=== PATIENT | male | born 1960 | race Caucasian/White ===

== ENCOUNTER 2022-04-26 17:09 | Observation (INO) | payer OTHER ==
[2022-04-26] MEDS ORDERED: SODIUM CHLORIDE 0.9% 1,000 ML IV STA (17:17)
[2022-04-26] MEDS ORDERED: ALBUTEROL HFA INHALER INHALATION STA (17:17)
[2022-04-26] MEDS ORDERED: methylPREDNISolone SOD SUCCI 125 MG/2 ML VIAL IV STA (17:17)
--- NOTE | 2022-04-26 17:38 | ED ---
SOB HPI - General Stated Complaint: HUYEN Time Seen by Provider: 04/26/22 17:09 Source: patient, EMS, RN notes reviewed Mode of arrival: EMS - History of Present Illness Initial Comments: 62-year-old male with a history of COPD history of cardiac disease with 2 stents who states for last week or so is had intermittent episodes of shortness of breath some midsternal chest pain nonradiating he states currently he has no chest pain he states he's been coughing with some yellow phlegm he was diagnosed with a home test yesterday of COVID-19. He states today his home breathing medications were not helping at all. He is very short of breath he denies at this time any overt fevers chills or sweats. He does have a history in addition to cardiac disease hypertension. MD Complaint: shortness of breath, cough - Related Data Allergies Allergy/AdvReac Type Severity Reaction Status Date / Time No Known Allergies Allergy Verified 04/26/22 17:40 Review of Systems ROS Statement: Those systems with pertinent positive or pertinent negative responses have been documented in the HPI. ROS Other: All systems not noted in ROS Statement are negative. General Exam - General Exam Comments Initial Comments: This is a well up well-nourished awake alert oriented 4 male General appearance: alert, in no apparent distress Head exam: Present: atraumatic, normocephalic, normal inspection Eye exam: Present: normal appearance, PERRL, EOMI. Absent: scleral icterus, conjunctival injection, periorbital swelling ENT exam: Present: mucous membranes dry Neck exam: Present: normal inspection, full ROM, other. Absent: tenderness, meningismus, lymphadenopathy Respiratory exam: Present: wheezes, decreased breath sounds. Absent: respiratory distress, rales, rhonchi, stridor, chest wall tenderness Cardiovascular Exam: Present: regular rate, normal rhythm, normal heart sounds. Absent: systolic murmur, diastolic murmur, rubs, gallop, clicks GI/Abdominal exam: Present: soft, normal bowel sounds. Absent: distended, tenderness, guarding, rebound, rigid Extremities exam: Present: normal inspection, full ROM, normal capillary refill. Absent: tenderness, pedal edema, joint swelling, calf tenderness Back exam: Present: normal inspection Neurological exam: Present: alert, oriented X3, CN II-XII intact Psychiatric exam: Present: normal affect, normal mood Skin exam: Present: warm, dry, intact, normal color. Absent: rash Course Vital Signs 04/26/22 17:25 Temperature 98.0 F Pulse Rate 76 Respiratory 16 Rate Blood Pressure 142/89 O2 Sat by Pulse 99 Oximetry - Reevaluation(s) Reevaluation #1: 04/26/22 20:41 Reevaluation patient finds he still dyspneic with bilateral wheezing. Patient will will be admitted. X-ray read by me shows no evidence of infiltrate at this time. Patient was Covid Positive on a home test yesterday. Case discussed with Dr. Saul. Medical Decision Making - Lab Data Result diagrams: 04/26/22 17:31 04/26/22 17:31 Lab Results 04/26/22 04/26/22 04/26/22 Range/Units 17:31 17:31 17:31 WBC 5.3 (3.8-10.6) k/uL RBC 4.44 (4.30-5.90) m/uL Hgb 14.3 (13.0-17.5) gm/dL Hct 39.2 (39.0-53.0) % MCV 88.4 (80.0-100.0) fL MCH 32.3 (25.0-35.0) pg MCHC 36.5 (31.0-37.0) g/dL RDW 12.8 (11.5-15.5) % Plt Count 200 (150-450) k/uL MPV 7.6 Neutrophils % 66 % Lymphocytes % 17 % Monocytes % 10 % Eosinophils % 3 % Basophils % 1 % Neutrophils # 3.5 (1.3-7.7) k/uL Lymphocytes # 0.9 L (1.0-4.8) k/uL Monocytes # 0.5 (0-1.0) k/uL Eosinophils # 0.1 (0-0.7) k/uL Basophils # 0.0 (0-0.2) k/uL PT 10.7 (9.0-12.0) sec INR 1.0 (<1.2) APTT 22.2 (22.0-30.0) sec D-Dimer 0.37 (<0.60) mg/L FEU Sodium 136 L (137-145) mmol/L Potassium 4.5 (3.5-5.1) mmol/L Chloride 103 (98-107) mmol/L Carbon Dioxide 24 (22-30) mmol/L Anion Gap 9 mmol/L BUN 12 (9-20) mg/dL Creatinine 0.82 (0.66-1.25) mg/dL Est GFR (CKD-EPI)AfAm >90 (>60 ml/min/1.73 sqM) Est GFR (CKD-EPI)NonAf >90 (>60 ml/min/1.73 sqM) Glucose 106 H (74-99) mg/dL Plasma Lactic Acid Kuldeep (0.7-2.0) mmol/L Calcium 8.5 (8.4-10.2) mg/dL Magnesium 1.7 (1.6-2.3) mg/dL Total Bilirubin 1.1 (0.2-1.3) mg/dL AST 30 (17-59) U/L ALT 32 (4-49) U/L Alkaline Phosphatase 81 (38-126) U/L Troponin I (0.000-0.034) ng/mL NT-Pro-B Natriuret Pep pg/mL Total Protein 6.7 (6.3-8.2) g/dL Albumin 4.1 (3.5-5.0) g/dL 04/26/22 04/26/22 04/26/22 Range/Units 17:31 17:31 17:31 WBC (3.8-10.6) k/uL RBC (4.30-5.90) m/uL Hgb (13.0-17.5) gm/dL Hct (39.0-53.0) % MCV (80.0-100.0) fL MCH (25.0-35.0) pg MCHC (31.0-37.0) g/dL RDW (11.5-15.5) % Plt Count (150-450) k/uL MPV Neutrophils % % Lymphocytes % % Monocytes % % Eosinophils % % Basophils % % Neutrophils # (1.3-7.7) k/uL Lymphocytes # (1.0-4.8) k/uL Monocytes # (0-1.0) k/uL Eosinophils # (0-0.7) k/uL Basophils # (0-0.2) k/uL PT (9.0-12.0) sec INR (<1.2) APTT (22.0-30.0) sec D-Dimer (<0.60) mg/L FEU Sodium (137-145) mmol/L Potassium (3.5-5.1) mmol/L Chloride (98-107) mmol/L Carbon Dioxide (22-30) mmol/L Anion Gap mmol/L BUN (9-20) mg/dL Creatinine (0.66-1.25) mg/dL Est GFR (CKD-EPI)AfAm (>60 ml/min/1.73 sqM) Est GFR (CKD-EPI)NonAf (>60 ml/min/1.73 sqM) Glucose (74-99) mg/dL Plasma Lactic Acid Kuldeep 1.2 (0.7-2.0) mmol/L Calcium (8.4-10.2) mg/dL Magnesium (1.6-2.3) mg/dL Total Bilirubin (0.2-1.3) mg/dL AST (17-59) U/L ALT (4-49) U/L Alkaline Phosphatase (38-126) U/L Troponin I <0.012 (0.000-0.034) ng/mL NT-Pro-B Natriuret Pep 31 pg/mL Total Protein (6.3-8.2) g/dL Albumin (3.5-5.0) g/dL - EKG Data -: EKG Interpreted by Me EKG Comments: EKG interpreted by me shows a normal sinus rhythm a 76 WI interval 154 QRS duration 100 QT since QTC 380/[address]-T wave changes seen. Disposition Clinical Impression: Acute exacerbation of chronic obstructive pulmonary disease, COVID-19 Disposition: ADMITTED IP TO THIS [facility] Condition: Fair Referrals: None,Stated [Primary Care Provider] - 1-2 days Decision Date: 04/26/22 Decision Time: 20:10
--- NOTE | 2022-04-26 18:02 | XR ---
EXAMINATION TYPE: XR chest 2V DATE OF EXAM: 04/26/2022 COMPARISON: None HISTORY: Shortness of breath TECHNIQUE: Frontal and lateral views of the chest are obtained. FINDINGS: There is no focal air space opacity, pleural effusion, or pneumothorax seen. The cardiac silhouette size is within normal limits. The osseous structures are intact. IMPRESSION: No acute cardiopulmonary process.
[2022-04-26 18:14] LABS: Basophils % (A) 1 %; Eosinophils # (A) 0.1 k/uL (0-0.7); Eosinophils % (A) 3 %; HCT 39.2 % (39.0-53.0); HGB 14.3 gm/dL (13.0-17.5); Lymphocytes # (A) 0.9 k/uL (1.0-4.8); Lymphocytes % (A) 17 %; MCH 32.3 pg (25.0-35.0); MCHC 36.5 g/dL (31.0-37.0); MCV 88.4 fL (80.0-100.0); Mean Platelet Volume 7.6; Monocytes # (A) 0.5 k/uL (0-1.0); Monocytes % (A) 10 %; Neutrophils # (A) 3.5 k/uL (1.3-7.7); Neutrophils % (A) 66 %; Platelet Count 200 k/uL (150-450); RBC 4.44 m/uL (4.30-5.90); RDW 12.8 % (11.5-15.5); WBC 5.3 k/uL (3.8-10.6)
[2022-04-26 18:18] LABS: Partial Thromboplastin Time 22.2 sec (22.0-30.0); Prothrombin Time 10.7 sec (9.0-12.0)
[2022-04-26 18:42] LABS: ALT 32 U/L (4-49); AST 30 U/L (17-59); African American GFR (CKD) >90 (>60 ml/min/1.73 sqM); Albumin 4.1 g/dL (3.5-5.0); Alkaline Phosphatase 81 U/L (38-126); Anion Gap 9 mmol/L; Blood Urea Nitrogen 12 mg/dL (9-20); Calcium 8.5 mg/dL (8.4-10.2); Carbon Dioxide 24 mmol/L (22-30); Chloride 103 mmol/L (98-107); Glucose 106 mg/dL (74-99); Magnesium 1.7 mg/dL (1.6-2.3); Non-African American GFR(CKD) >90 (>60 ml/min/1.73 sqM); Potassium 4.5 mmol/L (3.5-5.1); Sodium 136 mmol/L (137-145); Total Bilirubin 1.1 mg/dL (0.2-1.3); Total Protein 6.7 g/dL (6.3-8.2)
[2022-04-26] MEDS ORDERED: ACETAMINOPHEN TAB 325 MG TAB PO PRN (20:47)
[2022-04-26] MEDS ORDERED: NALOXONE 0.4 MG/ML 1 ML VIAL IVP PRN (20:47)
[2022-04-26] MEDS ORDERED: NITROGLYCERIN SL TABS 0.4 MG TAB SUBLINGUAL PRN (22:57)
[2022-04-26] MEDS: RANOLAZINE 500 MG TAB.ER.12H PO SCH (23:21)
[2022-04-26] MEDS: METOPROLOL TARTRATE 25 MG TAB PO SCH (23:21)
[2022-04-26] MEDS: ATORVASTATIN 80 MG TAB PO SCH (23:21)
[2022-04-26] MEDS: PANTOPRAZOLE 40 MG TABLET PO SCH (23:21)
[2022-04-26] MEDS: methylPREDNISolone SOD SUCCI 125 MG/2 ML VIAL IV SCH (23:22)
[2022-04-27] MEDS ORDERED: ALBUTEROL HFA INHALER INHALATION SCH
[2022-04-27] MEDS: PANTOPRAZOLE 40 MG TABLET PO SCH ×2 (06:34→18:18)
[2022-04-27] MEDS: methylPREDNISolone SOD SUCCI 125 MG/2 ML VIAL IV SCH ×4 (06:34→23:54)
[2022-04-27] MEDS: ALBUTEROL HFA INHALER INHALATION SCH ×4 (07:03→19:04)
[2022-04-27] MEDS: ISOSORBIDE MONONITRATE ER 30 MG TAB.ER.24H PO SCH (08:41)
[2022-04-27] MEDS: ZINC SULFATE 220 MG CAP PO SCH (08:41)
[2022-04-27] MEDS: RANOLAZINE 500 MG TAB.ER.12H PO SCH ×2 (08:42→20:58)
[2022-04-27] MEDS: ASCORBIC ACID 500 MG TAB PO SCH (08:42)
[2022-04-27] MEDS: CHOLECALCIFEROL 125 MCG (5000 IU) TABLET PO SCH (08:42)
[2022-04-27] MEDS: METOPROLOL TARTRATE 25 MG TAB PO SCH ×2 (08:42→20:58)
[2022-04-27] MEDS: FLUoxetine HCL 20 MG CAP PO SCH (08:42)
[2022-04-27] MEDS: NICOTINE 21MG/24HR PATCH TRANSDERM SCH (08:58)
[2022-04-27] MEDS: ATORVASTATIN 80 MG TAB PO SCH (20:58)
--- NOTE | 2022-04-27 23:22 | P.HPIM ---
History of Present Illness H&P Date: 04/27/22 Chief Complaint: Shortness of breath Patient is a 62-year-old male with a known history of COPD on home oxygen, hypertension, history of AL and stent placement coronary artery disease, previous history of smoking presents to ER with complaints of worsening shortness of breath. Patient states that his was tested positive for covid 19 and has been having symptoms for 1 week. Patient started having symptoms 2 days ago. Patient was also had midsternal chest pain. No compressive chest pain now. He has been having cough with yellow sputum production. No radiation of the pain. Having generalized weakness and tightness. No nausea vomiting or abdominal pain or diarrhea. Denied any fever or chills. No leg swelling. On admission patient was afebrile. Pulse ox 99% on 5 L oxygen via nasal cannula. Chest x-ray showed no acute cardiopulmonary process. EKG showed normal sinus rhythm. Laboratory data WC 5.3 hemoglobin 14.3 and platelets 200 D-dimer level is 0.37 Sodium 136 potassium 4.5 chloride 103 bicarb is 24, BUN 12 and creatinine 0.8, blood sugar 106 magnesium 1.7 neck elevated has not elevated. Troponin 1 negative and proBNP is 31 Montes virus 19 detected. Review of Systems Constitutional: Patient denies any fever or chills . No generalized weakness or weight loss. Abdomen: Patient denied nausea vomiting and diarrhea and abdominal pain. Cardiovascular: Patient denies any chest pain or short of breath no palpitations. Respiratory: patient denied any cough is from production. No shortness of br eath Neurologic: Patient denied any numbness or tingling headache. Musculoskeletal: Patient denies any complaints of joint swelling or deformity. Skin: Negative Psychiatric: Negative Endocrine: No heat or cold intolerance. No recent weight gain. Genitourinary: No dysuria or hematuria. All other 14 point ROS negative except the above Past Medical History Past Medical History: COPD, Hypertension, Myocardial Infarction (AL) Last Myocardial Infarction Date:: 2020 History of Any Multi-Drug Resistant Organisms: None Reported Past Surgical History: Heart Catheterization With Stent Date of Last Stent Placement:: 2020 Past Psychological History: No Psychological Hx Reported Smoking Status: Former smoker Past Alcohol Use History: None Reported Past Drug Use History: None Reported Medications and Allergies Home Medications Medication Instructions Recorded Confirmed Type Atorvastatin Calcium [Lipitor] 80 mg PO HS 04/26/22 04/26/22 History FLUoxetine HCL [PROzac] 20 mg PO DAILY 04/26/22 04/26/22 History FLUoxetine HCL [PROzac] 40 mg PO DAILY 04/26/22 04/26/22 History Famotidine [Pepcid] 40 mg PO DAILY 04/26/22 04/26/22 History Isosorbide Mononitrate ER [Imdur] 90 mg PO DAILY 04/26/22 04/26/22 History Lansoprazole [Prevacid] 30 mg PO DAILY 04/26/22 04/26/22 History Metoprolol Tartrate [Lopressor] 25 mg PO BID 04/26/22 04/26/22 History Nitroglycerin Sl Tabs [Nitrostat] 0.4 mg SUBLINGUAL Q5M PRN 04/26/22 04/26/22 History Pantoprazole Sodium 40 mg PO BID 04/26/22 04/26/22 History Ranolazine [Ranolazine ER] 500 mg PO BID 04/26/22 04/26/22 History rOPINIRole HCL [Requip] 0.5 mg PO TID 04/26/22 04/26/22 History Allergies Allergy/AdvReac Type Severity Reaction Status Date / Time No Known Allergies Allergy Verified 04/26/22 21:03 Physical Exam Vitals: Vital Signs Temp Pulse Pulse Resp BP BP Pulse Ox 04/27/22 02:09 97.8 F 81 18 138/54 98 04/26/22 21:40 97.8 F 77 19 137/74 98 04/26/22 21:00 73 22 118/84 99 04/26/22 20:30 73 24 139/82 99 04/26/22 20:00 68 20 141/88 99 04/26/22 19:30 74 21 145/84 99 04/26/22 19:00 68 24 130/89 99 04/26/22 18:30 71 22 133/89 99 04/26/22 18:00 77 24 139/94 99 04/26/22 17:25 98.0 F 76 16 142/89 99 Intake and Output 04/26/22 04/27/22 04/27/22 23:59 06:59 14:59 Other: Voiding Method # Voids Weight PHYSICAL EXAMINATION: Patient is lying in the bed comfortably, no acute distress, awake alert and oriented.. HEENT: Normocephalic. Neck is supple. Pupils reactive. Nostrils clear. Oral cavity is moist. Neck reveals no JVD, carotid bruits, or thyromegaly. CHEST EXAMINATION: Trachea is central. Symmetrical expansion. Bilateral diffuse wheezing and diminished air entry and nonlabored breathing.. Scattered rhonchi. CARDIAC: Normal S1, S2 with no gallops. No murmurs ABDOMEN: Soft. Bowel sounds normal. No organomegaly. No abdominal bruits. Extremities: reveal no edema. No clubbing or cyanosis Neurologically awake, alert, oriented x3 with well-coordinated movements. No focal deficits noted Skin: No rash or skin lesions. Psychiatric: Coperative. Nonsuicidal Musculoskeletal: No joint swelling or deformity. Normal range of motion. Results CBC & Chem 7: 04/28/22 06:04 04/28/22 06:04 Labs: Abnormal Lab Results - Last 24 Hours (Table) 04/26/22 04/26/22 Range/Units 17:31 17:31 Lymphocytes # 0.9 L (1.0-4.8) k/uL Sodium 136 L (137-145) mmol/L Glucose 106 H (74-99) mg/dL Thrombosis Risk Factor Assmnt - DVT/VTE Prophylaxis DVT/VTE Prophylaxis: Pharmacologic Prophylaxis ordered Assessment and Plan Assessment: Acute COVID 19 infection Acute COPD exacerbation Chronic hypoxic respiratory failure requiring oxygen with another cannula at home. Coronary artery disease with history of stent placement Hypertension Previous history of smoking and DVT prophylaxis Plan: Patient will be continued on oxygen supplementation. Continue with IV Solu- Medrol 60 mg every 6 hourly and duo nebs. Continue with antibiotics in the form of azithromycin. DVT prophylaxis with Lovenox subcu. Continue with home medications and follow closely. Follow-up inflammatory markers. Prognosis is guarded in this time. Continue with contact and droplet precautions. Time with Patient: Greater than 30
[2022-04-28] MEDS: methylPREDNISolone SOD SUCCI 125 MG/2 ML VIAL IV SCH ×4 (07:31→23:22)
[2022-04-28] MEDS: PANTOPRAZOLE 40 MG TABLET PO SCH ×2 (07:31→17:02)
[2022-04-28 08:46] LABS: Basophils # (A) 0 X 10*3/uL (0.00-0.10); Basophils % (A) 0 %; Eosinophils # (A) 0 X 10*3/uL (0.04-0.35); Eosinophils % (A) 0 %; HCT 36.6 % (39.6-50.0); HGB 12.7 g/dL (13.0-17.0); Immature Grans, Automated 0.5 %; Lymphocytes # (A) 0.66 X 10*3/uL (0.90-5.00); Lymphocytes % (A) 4.7 %; MCH 30.8 pg (27.0-32.0); MCHC 34.7 g/dL (32.0-37.0); MCV 88.6 fL (80.0-97.0); Mean Platelet Volume 9.5 fL (9.5-12.2); Monocytes # (A) 0.25 X 10*3/uL (0.20-1.00); Monocytes % (A) 1.8 %; NRBC Per 100 WBC 0 /100 WBCS (0.0-0.0); Neutrophils # (A) 13.11 X 10*3/uL (1.80-7.70); Platelet Count 238 X 10*3/uL (140-440); RBC 4.13 X 10*6/uL (4.40-5.60); RDW 12.5 % (11.5-14.5); WBC 14.09 X 10*3/uL (4.50-10.00)
[2022-04-28 09:15] LABS: African American GFR (CKD) 92.4 (60.0-200.0); Anion Gap 10.6 mmol/L (10.00-18.00); BUN/Creat Ratio 19.5 Ratio (12.00-20.00); Blood Urea Nitrogen 19.5 mg/dL (9.0-27.0); C Reactive Protein 0.5 mg/dL (0.00-0.80); Carbon Dioxide 23.4 mmol/L (20.0-27.5); Non-African American GFR(CKD) 79.7 (60.0-200.0); Potassium 4.4 mmol/L (3.5-5.5)
[2022-04-28] MEDS: ISOSORBIDE MONONITRATE ER 30 MG TAB.ER.24H PO SCH (09:20)
[2022-04-28] MEDS: ENOXAPARIN 40 MG/0.4 ML SYRINGE SQ SCH (09:20)
[2022-04-28] MEDS: RANOLAZINE 500 MG TAB.ER.12H PO SCH ×2 (09:21→21:45)
[2022-04-28] MEDS: CHOLECALCIFEROL 125 MCG (5000 IU) TABLET PO SCH (09:21)
[2022-04-28] MEDS: ASCORBIC ACID 500 MG TAB PO SCH (09:21)
[2022-04-28] MEDS: ZINC SULFATE 220 MG CAP PO SCH (09:21)
[2022-04-28] MEDS: METOPROLOL TARTRATE 25 MG TAB PO SCH ×2 (09:21→21:45)
[2022-04-28] MEDS: FLUoxetine HCL 20 MG CAP PO SCH (09:25)
[2022-04-28] MEDS: NICOTINE 21MG/24HR PATCH TRANSDERM SCH (09:25)
[2022-04-28] MEDS: ALBUTEROL HFA INHALER INHALATION SCH ×4 (09:51→19:57)
[2022-04-28] MEDS: FAMOTIDINE 20 MG TAB PO SCH ×2 (11:31→21:45)
[2022-04-28] MEDS: AZITHROMYCIN 500 MG TAB PO SCH (11:33)
[2022-04-28] MEDS: ATORVASTATIN 80 MG TAB PO SCH (21:44)
--- NOTE | 2022-04-29 05:58 | P.PN ---
Subjective Progress Note Date: 04/28/22 Patient is a 62-year-old male with a known history of COPD on home oxygen, hypertension, history of [place] and stent placement coronary artery disease, previous history of smoking presents to ER with complaints of worsening shortness of breath. Patient states that his was tested positive for covid 19 and has been having symptoms for 1 week. Patient started having symptoms 2 days ago. Patient was also had midsternal chest pain. No compressive chest pain now. He has been having cough with yellow sputum production. No radiation of the pain. Having generalized weakness and tightness. No nausea vomiting or abdominal pain or diarrhea. Denied any fever or chills. No leg swelling. On admission patient was afebrile. Pulse ox 99% on 5 L oxygen via nasal cannula. Chest x-ray showed no acute cardiopulmonary process. EKG showed normal sinus rhythm. Laboratory data WC 5.3 hemoglobin 14.3 and platelets 200 D-dimer level is 0.37 Sodium 136 potassium 4.5 chloride 103 bicarb is 24, BUN 12 and creatinine 0.8, blood sugar 106 magnesium 1.7 neck elevated has not elevated. Troponin 1 negative and proBNP is 31 Montes virus 19 detected. 04/28/2022 Patient is seen and evaluated in follow-up today currently maintained on 3 L via nasal cannula. Patient is being monitored for acute COVID-19 infection along with COPD acute exacerbation. Patient reports he does have as needed oxygen in the outpatient setting although this was in [place] where he had Medicaid insurance and currently applied for Medicaid here although pending and does not have a doctor here as he recently just moved to [place]. Patient is afebrile and continues with shortness of breath. Denies chest pain or palpitations. Patient is tolerating diet with no reports of nausea or vomiting noted. Patient reports he was vaccinated but did not receive boosters for Covid. Review of systems: Constitutional: No reports of fatigue, fever, or chills Cardiovascular: No reports of chest pain or palpitations Respiratory: reports of shortness of breath with cough GI: No reports of nausea, vomiting, or diarrhea : No reports of dysuria or retention Neurovascular: No reports of weakness or numbness All medications have been reviewed Physical exam: Patient is lying in the bed comfortably, no acute distress, awake alert and oriented.. HEENT: Normocephalic. Neck is supple. Pupils reactive. Nostrils clear. Oral cav ity is moist. Neck reveals no JVD, carotid bruits, or thyromegaly. CHEST EXAMINATION: Trachea is central. Symmetrical expansion. Bilateral diffuse wheezing and diminished air entry and nonlabored breathing.. Scattered course rhonchi. CARDIAC: Normal S1, S2 with no gallops. No murmurs ABDOMEN: Soft. Bowel sounds normal. No organomegaly. No abdominal bruits. Extremities: reveal no edema. No clubbing or cyanosis Neurologically awake, alert, oriented x3 with well-coordinated movements. No f ocal deficits noted Skin: No rash or skin lesions. Psychiatric: Cooperative. Non-suicidal Musculoskeletal: No joint swelling or deformity. Normal range of motion. Assessment: Acute COVID 19 infection Acute COPD exacerbation Chronic hypoxic respiratory failure requiring oxygen with nasal cannula at home. Coronary artery disease with history of stent placement Hypertension Previous history of smoking DVT prophylaxis Plan: Patient will be continued on oxygen supplementation. Continue with IV Solu- Medrol 60 mg every 6 hourly and inhalers. Continue with antibiotics in the form of azithromycin. DVT prophylaxis with Lovenox subcu. Continue with home medications and follow closely. Prognosis is guarded in this time. Continue with contact and droplet precautions for Covid 19 Case management following and arranging for home 02 in the outpatient setting as he recently just moved from [place] and his insurance was only valid there. Medicaid pending for [place]. Possible discharge in 24 hours. The impression and plan of care has been dictated by Geovanna Vidal, Nurse Practitioner as directed. Dr. Dorys MD I have performed a history and examination and MDM of this patient, discussed the same with the dictator, and agree with the dictator's assessment and plan as written ,documented as a scribe. Based on total visit time, I have performed more than 50% of the visit. Objective - Vital Signs Vital signs: Vital Signs Temp 98.0 F 04/28/22 07:00 Pulse 75 04/28/22 07:00 Resp 18 04/28/22 07:00 BP 150/73 04/28/22 07:00 Pulse Ox 96 04/28/22 07:00 FiO2 Intake & Output 04/27/22 04/28/22 04/28/22 18:59 06:59 18:59 Intake Total 598 750 Balance 598 750 Intake: Oral 598 750 Other: Voiding Method Toilet # Voids 3 - Labs CBC & Chem 7: 04/28/22 06:04 04/28/22 06:04 Labs: Abnormal Lab Results - Last 24 Hours (Table) 04/27/22 04/28/22 04/28/22 Range/Units 13:09 06:04 06:04 WBC 14.09 H (4.50-10.00) X 10*3/uL RBC 4.13 L (4.40-5.60) X 10*6/uL Hgb 12.7 L (13.0-17.0) g/dL Hct 36.6 L (39.6-50.0) % Immature Gran # 0.07 H (0.00-0.04) X 10*3/uL Neutrophils # 13.11 H (1.80-7.70) X 10*3/uL Lymphocytes # 0.66 L (0.90-5.00) X 10*3/uL Eosinophils # 0 L (0.04-0.35) X 10*3/uL Glucose 190 H (70-110) mg/dL Coronavirus (PCR) Detected A (Not Detectd)
[2022-04-29] MEDS: PANTOPRAZOLE 40 MG TABLET PO SCH ×2 (06:15→17:17)
[2022-04-29] MEDS: methylPREDNISolone SOD SUCCI 125 MG/2 ML VIAL IV SCH ×3 (06:16→17:17)
[2022-04-29] MEDS: AZITHROMYCIN 500 MG TAB PO SCH (08:52)
[2022-04-29] MEDS: FAMOTIDINE 20 MG TAB PO SCH ×2 (08:52→21:06)
[2022-04-29] MEDS: RANOLAZINE 500 MG TAB.ER.12H PO SCH ×2 (08:52→21:06)
[2022-04-29] MEDS: ISOSORBIDE MONONITRATE ER 30 MG TAB.ER.24H PO SCH (08:52)
[2022-04-29] MEDS: ZINC SULFATE 220 MG CAP PO SCH (08:52)
[2022-04-29] MEDS: METOPROLOL TARTRATE 25 MG TAB PO SCH ×2 (08:52→21:06)
[2022-04-29] MEDS: ASCORBIC ACID 500 MG TAB PO SCH (08:52)
[2022-04-29] MEDS: NICOTINE 21MG/24HR PATCH TRANSDERM SCH ×2 (08:53→08:58)
[2022-04-29] MEDS: ENOXAPARIN 40 MG/0.4 ML SYRINGE SQ SCH (08:53)
[2022-04-29] MEDS: CHOLECALCIFEROL 125 MCG (5000 IU) TABLET PO SCH (08:54)
[2022-04-29] MEDS: ALBUTEROL HFA INHALER INHALATION SCH ×4 (09:14→19:40)
[2022-04-29] MEDS: FLUoxetine HCL 20 MG CAP PO SCH (09:26)
[2022-04-29] MEDS: ATORVASTATIN 80 MG TAB PO SCH (21:06)
[2022-04-30] MEDS: methylPREDNISolone SOD SUCCI 125 MG/2 ML VIAL IV SCH ×2 (00:13→06:24)
[2022-04-30] MEDS: PANTOPRAZOLE 40 MG TABLET PO SCH (06:24)
--- NOTE | 2022-04-30 06:52 | P.PN ---
Subjective Progress Note Date: 04/29/22 Patient is a 62-year-old male with a known history of COPD on home oxygen, hypertension, history of [place] and stent placement coronary artery disease, previous history of smoking presents to ER with complaints of worsening shortness of breath. Patient states that his was tested positive for covid 19 and has been having symptoms for 1 week. Patient started having symptoms 2 days ago. Patient was also had midsternal chest pain. No compressive chest pain now. He has been having cough with yellow sputum production. No radiation of the pain. Having generalized weakness and tightness. No nausea vomiting or abdominal pain or diarrhea. Denied any fever or chills. No leg swelling. On admission patient was afebrile. Pulse ox 99% on 5 L oxygen via nasal cannula. Chest x-ray showed no acute cardiopulmonary process. EKG showed normal sinus rhythm. Laboratory data WC 5.3 hemoglobin 14.3 and platelets 200 D-dimer level is 0.37 Sodium 136 potassium 4.5 chloride 103 bicarb is 24, BUN 12 and creatinine 0.8, blood sugar 106 magnesium 1.7 neck elevated has not elevated. Troponin 1 negative and proBNP is 31 Montes virus 19 detected. 04/28/2022 Patient is seen and evaluated in follow-up today currently maintained on 3 L via nasal cannula. Patient is being monitored for acute COVID-19 infection along with COPD acute exacerbation. Patient reports he does have as needed oxygen in the outpatient setting although this was in [place] where he had Medicaid insurance and currently applied for Medicaid here although pending and does not have a doctor here as he recently just moved to [place]. Patient is afebrile and continues with shortness of breath. Denies chest pain or palpitations. Patient is tolerating diet with no reports of nausea or vomiting noted. Patient reports he was vaccinated but did not receive boosters for Covid. 04/29/2022 Patient is seen and evaluated in follow-up today apparently has no insurance as he canceled it while living in [place]. Case management is following working with the insurance along with oxygen supply company in an attempt to get the patient some oxygen prior to discharge. Insurance company that she was working with apparently is closed as there is voting today. Case management to follow-up with [employer] company in the a.m. Patient is afebrile reports continued shortness of breath and cough with no worsening shortness of breath, chest pain, or palpitations. Patient is tolerating oral diet nausea or vomiting noted. Review of systems: Constitutional: No reports of fatigue, fever, or chills Cardiovascular: No reports of chest pain or palpitations Respiratory: reports of shortness of breath with cough GI: No reports of nausea, vomiting, or diarrhea : No reports of dysuria or retention Neurovascular: No reports of weakness or numbness All medications have been reviewed Physical exam: Patient is sitting up in the bed comfortably, no acute distress, awake alert and oriented.. HEENT: Normocephalic. Neck is supple. Pupils reactive. Nostrils clear. Oral cavity is moist. Neck reveals no JVD, carotid bruits, or thyromegaly. CHEST EXAMINATION: Trachea is central. Symmetrical expansion. mild expiratory w heezing and diminished air entry with nonlabored breathing.. Scattered course rhonchi. CARDIAC: Normal S1, S2 with no gallops. No murmurs ABDOMEN: Soft. Bowel sounds normal. No organomegaly. No abdominal bruits. Extremities: reveal no edema. No clubbing or cyanosis Neurologically awake, alert, oriented x3 with well-coordinated movements. No focal deficits noted Skin: No rash or skin lesions. Psychiatric: Cooperative. Non-suicidal Musculoskeletal: No joint swelling or deformity. Normal range of motion. Assessment: Acute COVID 19 infection Acute COPD exacerbation Chronic hypoxic respiratory failure requiring oxygen with nasal cannula at home. Coronary artery disease with history of stent placement Hypertension Previous history of smoking DVT prophylaxis Plan: Patient will be continued on oxygen supplementation. Continue with IV Solu- Medrol and will titrate down the dose and inhalers. Continue with antibiotics in the form of azithromycin to complete the course. Case management following and arranging for home 02 in the outpatient setting as he recently just moved from [place] and his insurance was only valid there. Medicaid pending for [place]. Apparently the insurance is closed today for voting and case management to follow up with them in am Possible discharge in 24 hours once oxygen is delivered. . The impression and plan of care has been dictated by Geovanna Vidal, Nurse Practitioner as directed. Dr. Dorys MD I have performed a history and examination and MDM of this patient, discussed the same with the dictator, and agree with the dictator's assessment and plan as written ,documented as a scribe. Based on total visit time, I have performed more than 50% of the visit. Objective - Vital Signs Vital signs: Vital Signs Temp 97.8 F 04/29/22 07:00 Pulse 76 04/29/22 07:00 Resp 18 04/29/22 07:00 BP 150/79 04/29/22 07:00 Pulse Ox 94 L 04/29/22 15:36 FiO2 Intake & Output 04/28/22 04/29/22 04/29/22 18:59 06:59 18:59 Intake Total 480 Balance 480 Intake: Oral 480 Other: Voiding Method Toilet # Voids 1 1 - Labs CBC & Chem 7: 04/28/22 06:04 04/28/22 06:04
[2022-04-30] MEDS: NICOTINE 21MG/24HR PATCH TRANSDERM SCH (08:23)
[2022-04-30 08:27] VITALS: BP 149/82; PULSE 71; RESP 18; TEMP 97.4
[2022-04-30] MEDS ORDERED: methylPREDNISolone SOD SUCCI 125 MG/2 ML VIAL IV SCH (08:45)
[2022-04-30] MEDS: ZINC SULFATE 220 MG CAP PO SCH (08:49)
[2022-04-30] MEDS: ASCORBIC ACID 500 MG TAB PO SCH (08:49)
[2022-04-30] MEDS: METOPROLOL TARTRATE 25 MG TAB PO SCH (08:49)
[2022-04-30] MEDS: RANOLAZINE 500 MG TAB.ER.12H PO SCH (08:49)
[2022-04-30] MEDS: FAMOTIDINE 20 MG TAB PO SCH (08:49)
[2022-04-30] MEDS: ISOSORBIDE MONONITRATE ER 30 MG TAB.ER.24H PO SCH (08:49)
[2022-04-30] MEDS: CHOLECALCIFEROL 125 MCG (5000 IU) TABLET PO SCH (08:49)
[2022-04-30] MEDS: AZITHROMYCIN 500 MG TAB PO SCH (08:49)
[2022-04-30] MEDS: FLUoxetine HCL 20 MG CAP PO SCH (08:50)
[2022-04-30] MEDS: ENOXAPARIN 40 MG/0.4 ML SYRINGE SQ SCH (08:50)
[2022-04-30] MEDS: ALBUTEROL HFA INHALER INHALATION SCH ×2 (09:04→12:07)
[2022-05-01] MEDS ORDERED: predniSONE 20 MG TAB PO SCH (09:00)
--- NOTE | 2022-05-01 10:01 | P.DS ---
Providers Date of admission: 04/26/22 20:47 Expected date of discharge: 04/30/22 Attending physician: Susan Saul Primary care physician: Stated None Hospital Course: Final diagnosis Acute COVID 19 infection Acute COPD exacerbation Chronic hypoxic respiratory failure requiring oxygen with nasal cannula at home. Coronary artery disease with history of stent placement Hypertension Previous history of smoking DVT prophylaxis Discharge disposition Patient is being discharged in a stable condition with guarded prognosis to home. Patient will follow-up with Dr. Wong in the outpatient setting upon discharge. Patient is to follow-up with pulmonary outpatient as scheduled. Patient will be continued on 3 L of oxygen via nasal cannula to manage his COPD. Patient to continue vitamin and zinc supplements along with prednisone taper on discharge as well. Total time taken is greater than 35 minutes. Hospital course This is a 62-year-old male who was recently admitted with cough and COPD exacerbation and also acute Covid 19 infection. Patient with concern for pneumonia as well on admission and was given a few doses of Zithromax. Patient continued on IV steroids along with treatments and will be continued on a prednisone taper and resume his DuoNeb treatments along with inhalers in the outpatient setting. Patient currently has recently moved from [place] here to [place] and canceled his insurance of [place] as it was medicaid and currently working on obtaining insurance here. Case management working with the patient and able to provide oxygen and resources that are being delivered to the home on discharge. She provided resources for outpatient primary care providers to establish with along with pulmonary in the outpatient setting. Encourage patient to continue to avoid tobacco use and exposure. Currently no reports of chest pain, shortness of breath, or palpitations. Patient is afebrile. No reports of nausea or vomiting and patient is tolerating diet. Patient will be discharged home today. Guarded prognosis. Physical exam: Gen: This is a 62-year-old male awake, alert and oriented 3, well-developed, well-nourished HEENT: Head is atraumatic, normocephalic. Pupils equal, round. Sclerae is anicteric. NECK: Supple. No JVD. No lymphadenopathy. No thyromegaly. LUNGS: Diminished breath sounds bilaterally with some minimal expiratory wheezing and scattered coarse rhonchi noted. No intercostal retractions. HEART: Regular rate and rhythm. No murmur. ABDOMEN: Soft. Obese. Bowel sounds are present. No masses. No tenderness. EXTREMITIES: No pedal edema. No calf tenderness. NEUROLOGICAL: Patient is awake, alert and oriented x3. Cranial nerves 2 through 12 are grossly intact. Please refer to medication reconciliation sheet for a list of medications. The impression and plan of care has been dictated by Geovanna Vidal, Nurse Practitioner as directed. Dr. Dorys MD I have performed a history and examination and MDM of this patient, discussed th e same with the dictator, and agree with the dictator's assessment and plan as written ,documented as a scribe. Based on total visit time, I have performed more than 50% of the visit. Patient Condition at Discharge: Fair Plan - Discharge Summary New Discharge Prescriptions: New predniSONE 10 mg PO DIRECTED #30 tab Acetaminophen Tab [Tylenol] 650 mg PO Q4HR PRN tab PRN Reason: Mild Pain Or Fever > 100.5 Ascorbic Acid [Vitamin C] 1,000 mg PO DAILY #60 tab Zinc Sulfate [Orazinc] 220 mg PO DAILY 14 Days #14 cap Albuterol Inhaler [Ventolin Hfa Inhaler] 2 puff INHALATION RT-QID 30 Days #1 each Cholecalciferol [Vitamin D3 (125 Mcg = 5000 Iu)] 125 mcg PO DAILY 30 Days #30 tab Continue Ranolazine [Ranolazine ER] 500 mg PO BID Isosorbide Mononitrate ER [Imdur] 90 mg PO DAILY Famotidine [Pepcid] 40 mg PO DAILY FLUoxetine HCL [PROzac] 40 mg PO DAILY Nitroglycerin Sl Tabs [Nitrostat] 0.4 mg SUBLINGUAL Q5M PRN PRN Reason: Chest Pain rOPINIRole HCL [Requip] 0.5 mg PO TID Metoprolol Tartrate [Lopressor] 25 mg PO BID Pantoprazole Sodium 40 mg PO BID Lansoprazole [Prevacid] 30 mg PO DAILY Atorvastatin Calcium [Lipitor] 80 mg PO HS FLUoxetine HCL [PROzac] 20 mg PO DAILY Discharge Medication List Atorvastatin Calcium [Lipitor] 80 mg PO HS 04/26/22 [History] FLUoxetine HCL [PROzac] 20 mg PO DAILY 04/26/22 [History] FLUoxetine HCL [PROzac] 40 mg PO DAILY 04/26/22 [History] Famotidine [Pepcid] 40 mg PO DAILY 04/26/22 [History] Isosorbide Mononitrate ER [Imdur] 90 mg PO DAILY 04/26/22 [History] Lansoprazole [Prevacid] 30 mg PO DAILY 04/26/22 [History] Metoprolol Tartrate [Lopressor] 25 mg PO BID 04/26/22 [History] Nitroglycerin Sl Tabs [Nitrostat] 0.4 mg SUBLINGUAL Q5M PRN 04/26/22 [History] Pantoprazole Sodium 40 mg PO BID 04/26/22 [History] Ranolazine [Ranolazine ER] 500 mg PO BID 04/26/22 [History] rOPINIRole HCL [Requip] 0.5 mg PO TID 04/26/22 [History] Acetaminophen Tab [Tylenol] 650 mg PO Q4HR PRN tab 04/30/22 [Rx] Albuterol Inhaler [Ventolin Hfa Inhaler] 2 puff INHALATION RT-QID 30 Days #1 each 04/30/22 [Rx] Ascorbic Acid [Vitamin C] 1,000 mg PO DAILY #60 tab 04/30/22 [Rx] Cholecalciferol [Vitamin D3 (125 Mcg = 5000 Iu)] 125 mcg PO DAILY 30 Days #30 tab 04/30/22 [Rx] Zinc Sulfate [Orazinc] 220 mg PO DAILY 14 Days #14 cap 04/30/22 [Rx] predniSONE 10 mg PO DIRECTED #30 tab 04/30/22 [Rx] Follow up Appointment(s)/Referral(s): Reece Dobbs DO [Doctor of Osteopathic Medicine] - 06/03/22 9:45 am Yara Wong MD [STAFF PHYSICIAN] - 05/30/22 9:30 am Patient Instructions/Handouts: Albuterol (By breathing), Prednisone (By mouth), Zinc Sulfate (By mouth), Ascorbic Acid (By mouth), Cholecalciferol (By mouth), Using Oxygen at Home (DC), COVID-19 (Coronavirus Disease 2019) (DC) Activity/Diet/Wound Care/Special Instructions: Discharge pending O2 delivery Oxygen being supplied by [email or web address] [phone]. Patient was established with them prior to move from [place]. Activity Limited until follow-up Strongly encouraged follow-up with primary care provider to establish on discharge Continue following with her insurance to establish insurance Follow-up with pulmonary outpatient Continue inhalers and prednisone taper Continue to avoid tobacco use [employer] Discharge Disposition: HOME SELF-CARE
== END 2022-04-30 14:20 | disposition home or self-care (01) ==
LOC: EC 17:09 → 6NMEDSUR 20:47
PROVIDERS: ADMIT Internal Medicine; ATTEND Internal Medicine
DX: J44.1 Chronic obstructive pulmonary disease with (acute) exacerbation (principal); U07.1 COVID-19; J96.11 Chronic respiratory failure with hypoxia; I10 Essential (primary) hypertension; I25.2 Old myocardial infarction; I25.10 Atherosclerotic heart disease of native coronary artery without angina pectoris; Z87.891 Personal history of nicotine dependence; Z99.81 Dependence on supplemental oxygen; Z95.5 Presence of coronary angioplasty implant and graft; Z79.899 Other long term (current) drug therapy; Z20.822 Contact with and (suspected) exposure to COVID-19
CPT/HCPCS: 96376 ×5; 96361 ×3; 96372 ×3; 96374; 99285; 36415; 94640 ×9; 93005; 85379; 83880; 80053; 80048; 83605; 83615; 83735; 84484; 85025 ×2; 85610; 85730; 86140; 87635; 71046; G0378 ×5; J2930 ×5; J1650 ×3

== ENCOUNTER 2022-05-12 12:18 | Observation (INO) | payer OTHER ==
[2022-05-12] MEDS ORDERED: IPRATROPIUM-ALBUTEROL 3 ML NEB INHALATION STA (12:24)
[2022-05-12] MEDS ORDERED: NITROGLYCERIN OINT 1 INCH/GM PACKET TOPICAL STA (12:24)
[2022-05-12] MEDS: ASPIRIN 81 MG PO STA ×2 (12:29→12:30)
--- NOTE | 2022-05-12 12:29 | ED ---
General Adult HPI - General Stated complaint: chest pain Time Seen by Provider: 05/12/22 12:18 Source: patient, RN notes reviewed, old records reviewed - History of Present Illness Initial comments: This is a 62-year-old male presents emergency Department complaining that for a week he has been very dizzy and having sweating episodes. Patient states went to see his doctor about that today when he started having some chest pressure and shortness of breath. His doctor did an EKG she said was normal but she wanted him to come to the hospital because he has a previous cardiac history with a stent placement. Patient also has high blood pressure high cost felt. Patient states he was a smoker and he probably quit smoking about 10 or so years ago. Patient is on oxygen at home. Patient denies any recent fever chills or cough per patient denies any near syncopal episode. Patient states when he states he feels like is in a fall over not like is given a passout. Patient denies any palpitations. Patient states today the chest pain was in the left side and radiating to his left shoulder. Patient denies any diaphoretic episodes while having chest pain but has been having episodes of diaphoresis throughout the week with the dizziness. Patient denies any swelling to legs or calf tenderness. Patient denies any abdominal pain patient's nausea vomiting diarrhea. Patient denies any back pain. Patient denies headache. - Related Data Home Medications Medication Instructions Recorded Confirmed Atorvastatin Calcium [Lipitor] 80 mg PO HS 04/26/22 05/12/22 FLUoxetine HCL [PROzac] 20 mg PO DAILY 04/26/22 05/12/22 FLUoxetine HCL [PROzac] 40 mg PO DAILY 04/26/22 05/12/22 Famotidine [Pepcid] 40 mg PO DAILY 04/26/22 05/12/22 Isosorbide Mononitrate ER [Imdur] 90 mg PO DAILY 04/26/22 05/12/22 Lansoprazole [Prevacid] 30 mg PO DAILY 04/26/22 05/12/22 Metoprolol Tartrate [Lopressor] 25 mg PO BID 04/26/22 05/12/22 Nitroglycerin Sl Tabs [Nitrostat] 0.4 mg SUBLINGUAL Q5M PRN 04/26/22 05/12/22 Pantoprazole Sodium 40 mg PO BID 04/26/22 05/12/22 Ranolazine [Ranolazine ER] 500 mg PO BID 04/26/22 05/12/22 rOPINIRole HCL [Requip] 0.5 mg PO TID 04/26/22 05/12/22 predniSONE See Taper PO DIRECTED 05/12/22 05/12/22 Previous Rx's Medication Instructions Recorded Acetaminophen Tab [Tylenol] 650 mg PO Q4HR PRN tab 04/30/22 Albuterol Inhaler [Ventolin Hfa 2 puff INHALATION RT-QID 30 Days 04/30/22 Inhaler] #1 each Ascorbic Acid [Vitamin C] 1,000 mg PO DAILY #60 tab 04/30/22 Cholecalciferol [Vitamin D3 (125 125 mcg PO DAILY 30 Days #30 tab 04/30/22 Mcg = 5000 Iu)] Zinc Sulfate [Orazinc] 220 mg PO DAILY 14 Days #14 cap 04/30/22 Allergies Allergy/AdvReac Type Severity Reaction Status Date / Time codeine Allergy Swelling Verified 05/12/22 13:19 Review of Systems ROS Statement: Those systems with pertinent positive or pertinent negative responses have been documented in the HPI. ROS Other: All systems not noted in ROS Statement are negative. Past Medical History Past Medical History: COPD, Hypertension, Myocardial Infarction (MD) Last Myocardial Infarction Date:: 2020 History of Any Multi-Drug Resistant Organisms: None Reported Past Surgical History: Heart Catheterization With Stent Date of Last Stent Placement:: 2020 Past Psychological History: No Psychological Hx Reported Smoking Status: Former smoker Past Alcohol Use History: None Reported Past Drug Use History: None Reported General Exam - General Exam Comments Initial Comments: GENERAL: Patient is well-developed and well-nourished. Patient is nontoxic and well- hydrated and is in mild distress. ENT: Neck is soft and supple. No significant lymphadenopathy is noted. Oropharynx is clear. Moist mucous membranes. Neck has full range of motion without eliciting any pain. EYES: The sclera were anicteric and conjunctiva were pink and moist. Extraocular movements were intact and pupils were equal round and reactive to light. Eyelids were unremarkable. PULMONARY: Unlabored respirations. Good breath sounds bilaterally. Patient has some expiratory wheezing CARDIOVASCULAR: There is a regular rate and rhythm without any murmurs gallops or rubs. ABDOMEN: Soft and nontender with normal bowel sounds. SKIN: Skin is clear with no lesions or rashes and otherwise unremarkable. NEUROLOGIC: Patient is alert and oriented x3. Cranial nerves II through XII are grossly intact. Motor and sensory are also intact. Normal speech, volume and content. Symmetrical smile. MUSCULOSKELETAL: Normal extremities with adequate strength and full range of motion. LYMPHATICS: No significant lymphadenopathy is noted PSYCHIATRIC: Normal psychiatric evaluation. Course Vital Signs 05/12/22 05/12/22 05/12/22 12:20 12:25 12:58 Temperature 97.9 F Pulse Rate 100 93 Pulse Rate [ [employer] ] Pulse Rate [ 100 Pulse Oximetery ] Respiratory 18 Rate Blood Pressure 173/93 Blood Pressure [Right Arm Sitting] Blood Pressure [Right Arm Standing] Blood Pressure [Right Arm Supine] O2 Sat by Pulse 98 Oximetry 05/12/22 05/12/22 05/12/22 13:16 13:17 13:18 Temperature 98.0 F Pulse Rate Pulse Rate [ 94 105 H 107 H [employer] ] Pulse Rate [ Pulse Oximetery ] Respiratory 18 18 17 Rate Blood Pressure Blood Pressure 156/88 [Right Arm Sitting] Blood Pressure 150/82 [Right Arm Standing] Blood Pressure 141/91 [Right Arm Supine] O2 Sat by Pulse 95 98 96 Oximetry 05/12/22 13:43 Temperature Pulse Rate 93 Pulse Rate [ [employer] ] Pulse Rate [ Pulse Oximetery ] Respiratory 20 Rate Blood Pressure 138/66 Blood Pressure [Right Arm Sitting] Blood Pressure [Right Arm Standing] Blood Pressure [Right Arm Supine] O2 Sat by Pulse 96 Oximetry Medical Decision Making - Medical Decision Making I interpreted the EKG. EKG shows sinus tachycardia at 100 bpm KS interval 139 QRS is 86 QT interval 334 QTC is 391 per patient's EKG shows no ST segment elevation or depression. I interpreted the chest x-ray. Chest x-ray shows no acute abnormality. I interpreted the computed tomography scan I saw no acute abnormality. There was no intracranial hemorrhage. I spoke with sounds physician's and agreed to admit the patient admitted the patient wrote admitting orders. - Lab Data Result diagrams: 05/12/22 12:33 05/12/22 12:33 Lab Results 05/12/22 05/12/22 05/12/22 Range/Units 12:33 12:33 12:33 WBC 11.6 H (3.8-10.6) k/uL RBC 5.08 (4.30-5.90) m/uL Hgb 16.0 (13.0-17.5) gm/dL Hct 46.8 (39.0-53.0) % MCV 92.1 (80.0-100.0) fL MCH 31.4 (25.0-35.0) pg MCHC 34.1 (31.0-37.0) g/dL RDW 12.8 (11.5-15.5) % Plt Count 215 (150-450) k/uL MPV 7.3 Neutrophils % 80 % Lymphocytes % 11 % Monocytes % 6 % Eosinophils % 1 % Basophils % 1 % Neutrophils # 9.3 H (1.3-7.7) k/uL Lymphocytes # 1.3 (1.0-4.8) k/uL Monocytes # 0.7 (0-1.0) k/uL Eosinophils # 0.1 (0-0.7) k/uL Basophils # 0.1 (0-0.2) k/uL PT 10.4 (9.0-12.0) sec INR 0.9 (<1.2) APTT 20.4 L (22.0-30.0) sec Sodium 137 (137-145) mmol/L Potassium 4.5 (3.5-5.1) mmol/L Chloride 102 (98-107) mmol/L Carbon Dioxide 30 (22-30) mmol/L Anion Gap 5 mmol/L BUN 18 (9-20) mg/dL Creatinine 0.82 (0.66-1.25) mg/dL Est GFR (CKD-EPI)AfAm >90 (>60 ml/min/1.73 sqM) Est GFR (CKD-EPI)NonAf >90 (>60 ml/min/1.73 sqM) Glucose 100 H (74-99) mg/dL Calcium 8.7 (8.4-10.2) mg/dL Magnesium 1.8 (1.6-2.3) mg/dL Total Bilirubin 1.1 (0.2-1.3) mg/dL AST 32 (17-59) U/L ALT 51 H (4-49) U/L Alkaline Phosphatase 114 (38-126) U/L Troponin I (0.000-0.034) ng/mL NT-Pro-B Natriuret Pep pg/mL Total Protein 6.8 (6.3-8.2) g/dL Albumin 4.2 (3.5-5.0) g/dL Coronavirus (PCR) (Not Detectd) 05/12/22 05/12/22 05/12/22 Range/Units 12:33 12:33 12:33 WBC (3.8-10.6) k/uL RBC (4.30-5.90) m/uL Hgb (13.0-17.5) gm/dL Hct (39.0-53.0) % MCV (80.0-100.0) fL MCH (25.0-35.0) pg MCHC (31.0-37.0) g/dL RDW (11.5-15.5) % Plt Count (150-450) k/uL MPV Neutrophils % % Lymphocytes % % Monocytes % % Eosinophils % % Basophils % % Neutrophils # (1.3-7.7) k/uL Lymphocytes # (1.0-4.8) k/uL Monocytes # (0-1.0) k/uL Eosinophils # (0-0.7) k/uL Basophils # (0-0.2) k/uL PT (9.0-12.0) sec INR (<1.2) APTT (22.0-30.0) sec Sodium (137-145) mmol/L Potassium (3.5-5.1) mmol/L Chloride (98-107) mmol/L Carbon Dioxide (22-30) mmol/L Anion Gap mmol/L BUN (9-20) mg/dL Creatinine (0.66-1.25) mg/dL Est GFR (CKD-EPI)AfAm (>60 ml/min/1.73 sqM) Est GFR (CKD-EPI)NonAf (>60 ml/min/1.73 sqM) Glucose (74-99) mg/dL Calcium (8.4-10.2) mg/dL Magnesium (1.6-2.3) mg/dL Total Bilirubin (0.2-1.3) mg/dL AST (17-59) U/L ALT (4-49) U/L Alkaline Phosphatase (38-126) U/L Troponin I <0.012 (0.000-0.034) ng/mL NT-Pro-B Natriuret Pep 27 pg/mL Total Protein (6.3-8.2) g/dL Albumin (3.5-5.0) g/dL Coronavirus (PCR) Not Detected (Not Detectd) Disposition Clinical Impression: Chest pain, Dizziness Disposition: ADMITTED IP TO THIS HOSP Referrals: Yara Wong MD [Primary Care Provider] - 1-2 days Time of Disposition: 14:14
[2022-05-12 12:53] LABS: Basophils # (A) 0.1 k/uL (0-0.2); Basophils % (A) 1 %; Eosinophils # (A) 0.1 k/uL (0-0.7); Eosinophils % (A) 1 %; HCT 46.8 % (39.0-53.0); Lymphocytes # (A) 1.3 k/uL (1.0-4.8); Lymphocytes % (A) 11 %; MCH 31.4 pg (25.0-35.0); MCHC 34.1 g/dL (31.0-37.0); MCV 92.1 fL (80.0-100.0); Mean Platelet Volume 7.3; Monocytes # (A) 0.7 k/uL (0-1.0); Monocytes % (A) 6 %; Neutrophils # (A) 9.3 k/uL (1.3-7.7); Neutrophils % (A) 80 %; Platelet Count 215 k/uL (150-450); RBC 5.08 m/uL (4.30-5.90); RDW 12.8 % (11.5-15.5); WBC 11.6 k/uL (3.8-10.6)
--- NOTE | 2022-05-12 12:53 | XR ---
EXAMINATION TYPE: XR chest 2V DATE OF EXAM: 05/12/2022 COMPARISON: 04/26/22 HISTORY: Shortness of breath TECHNIQUE: Frontal and lateral views of the chest are obtained. FINDINGS: Scattered senescent parenchymal changes noted. Hyperinflation compatible with COPD. No evidence for infiltrate. No evidence for atelectasis. Heart size is stable. Mediastinal structures are stable and grossly unremarkable. No evidence for hilar prominence. Degenerative changes dorsal spine. IMPRESSION: 1. No evidence for acute pulmonary disease.
[2022-05-12 13:10] LABS: ALT 51 U/L (4-49); AST 32 U/L (17-59); African American GFR (CKD) >90 (>60 ml/min/1.73 sqM); Albumin 4.2 g/dL (3.5-5.0); Alkaline Phosphatase 114 U/L (38-126); Anion Gap 5 mmol/L; Blood Urea Nitrogen 18 mg/dL (9-20); Calcium 8.7 mg/dL (8.4-10.2); Carbon Dioxide 30 mmol/L (22-30); Chloride 102 mmol/L (98-107); Glucose 100 mg/dL (74-99); Magnesium 1.8 mg/dL (1.6-2.3); Non-African American GFR(CKD) >90 (>60 ml/min/1.73 sqM); Potassium 4.5 mmol/L (3.5-5.1); Sodium 137 mmol/L (137-145); Total Bilirubin 1.1 mg/dL (0.2-1.3); Total Protein 6.8 g/dL (6.3-8.2)
[2022-05-12 13:12] LABS: INR 0.9 (<1.2); Partial Thromboplastin Time 20.4 sec (22.0-30.0); Prothrombin Time 10.4 sec (9.0-12.0)
--- NOTE | 2022-05-12 13:54 | CT ---
EXAMINATION TYPE: CT brain wo con CT DLP: 1149.4 mGycm, Automated exposure control for dose reduction was used. DATE OF EXAM: 05/12/2022 1:30 PM COMPARISON: None. 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 TECHNIQUE: Brain: Axial CT images of the brain were obtained with coronal and sagittal reformats created and rev iewed. Contrast used: None. Oral contrast used: None. FINDINGS: Brain: Extra-axial spaces: No abnormal extra-axial fluid collections. Ventricular system: Within normal limits Cerebral parenchyma: No acute intraparenchymal hemorrhage or mass effect. The pierre-white junction is well differentiated. Scattered hypoattenuating areas are seen within the white matter most pronounce d in the posterior parietal and occipital lobes. Cerebellum: Unremarkable. Mass effect: No evidence of midline shift. Intracranial vasculature: Atherosclerotic calcifications of the intracranial vessels. Soft tissues: Normal. Calvarium/osseous structures: No depressed skull fracture. Paranasal sinuses and mastoid air cells: Mild scattered paranasal sinus disease. Visualized orbits: Orbital contents are intact. IMPRESSION: * No acute intracranial process. * White matter changes which are suboptimally evaluated on the CT examination most pronounced in the posterior aspects of the parietal lobes and occipital lobes. Consider MRI evaluation to rule out pos terior reversible encephalopathy syndrome.
[2022-05-12] MEDS ORDERED: NITROGLYCERIN SL TABS 0.4 MG TAB SUBLINGUAL PRN (14:55)
--- NOTE | 2022-05-12 16:27 | P.HPIM ---
History of Present Illness H&P Date: 05/12/22 History of Presenting Illness: Patient is a very pleasant 62-year-old male with a past medical history of CAD stenting, angina, hypertension, hyperlipidemia, GERD, and COPD. Patient presented to the emergency department with a chief complaint of chest pain. Patient reports he went to his PCPs this morning because he's been experiencing weakness, dizziness, lightheadedness, and a headache 2 weeks accompanied by visual changes in his left eye and left-sided facial numbness. Patient reports he was diagnosed with Covid infection on 04/25/22 and initially felt that maybe this was resulting from this as the symptoms began shortly after diagnosis. Patient reports in addition to the above complaints he has been experiencing intermittent chest pain and shortness of breath but he went to the doctor's today to undergo evaluation for the dizziness and lightheadedness because he thinks if this would just stop everything else would feel better. Patient states while at the doctor's he again developed some chest pressure and shortness of breath and was sent to the hospital for further evaluation. Patient denies having any fevers, chills, tinnitus or changes in hearing, p alpitations, persistent cough or congestion, nausea or vomiting, or experiencing any numbness/tingling/weakness/swelling in his extremities. Upon arrival to the department patient initially hypertensive with blood pressure 173/93 and heart rate of 100. CBC revealed mild leukocytosis with WBC count of 11.6 and CMP showing no significant abnormalities. Troponin was less than 0.012 and Covid PCR was negative. EKG was completed revealing normal sinus rhythm at 100 bpm. Chest x-ray negative for acute cardiopulmonary process, revealing hyperinflation compatible with COPD. CT brain revealing scattered hypoattenuating areas (white matter changes) seen within the white matter most pronounced in the posterior aspects of the parietal and occipital lobe. Patient admitted under our services with consultation to neurology and cardiology. Review of systems: Pertinent positives and negatives as discussed in HPI, a complete review of systems was performed and all other systems are negative. Physical exam: Vital signs reviewed and stable. General: Nontoxic, no distress and appears stated age. Derm: Skin warm and dry, normal coloration for ethnicity. Head: Atraumatic, normocephalic and symmetric. Eyes: EOMs intact, no lid lag, and anicteric sclera Mouth: no lip lesions, mucus membranes moist Cardiovascular: regular rate and rhythm with normal S1S2, no murmur, positive posterior tibial pulses bilaterally, and cap refill < 2 seconds. Lungs: Respirations even, regular, and unlabored on room air. Lungs CTA bilaterally, no rhonchi, no rales, no wheezing, and no accessory muscle usage. Abdominal: soft, nontender to palpation, no guarding, no appreciable organomegaly Ext: ROM intact. No gross muscle atrophy, no edema, no contractures Neuro: Speech clear, face symmetrical and CN II-XII grossly intact with no noted focal neuro deficits Psych: Alert and oriented to person, place, time, and situation. Appropriate and pleasant affect. Assessment and Plan of Care: Chest pain/pressure and shortness of breath, rule out acute coronary event History of CAD status post stenting Hypertension Hyperlipidemia -Cardiology consult, appreciate further recommendations -Telemetry monitoring -Trend troponins -Cardiac diet, NPO at midnight -Continue cardiac medication regimen with Aspirin, atorvastatin, isosorbide mononitrate, ranolazine and metoprolol -Lipid profile with a.m. labs. -Echocardiogram Headache, lightheadedness, dizziness, and visual changes of left eye with left-sided facial numbness -CT brain revealing scattered hypoattenuating areas (white matter changes) seen within the white matter most pronounced in the posterior aspects of the parietal and occipital lobe. -Neurology consulted to rule out PRES vs other neurological disorder. -Neuro checks every 4 hours -Continue daily blood pressure medication regimen and monitor vital signs closely for optimization of blood pressure control, may need to make some adjustments to her antihypertensive medication regimen but currently BP has improved from 173/93 down to 141/91. -Telemetry monitoring -Fall precautions -Continue daily aspirin and atorvastatin COPD, not in acute exacerbation -Continue use of albuterol every 4 hours as needed for shortness of breath and/or wheezing. -Incentive spirometer, encourage use 10-15 times hourly while awake during hospitalization The patient is admitted with an anticipated less than 2 midnight stay for evaluation of chest pain, dizziness, lightheadedness, and headache with visual changes and left-sided facial numbness CODE STATUS: Full code DVT prophylaxis: Lovenox Discussed with: Patient and patient's at bedside Anticipated discharge date: 1-[address]: Home A total of 46 minutes was spent on the care of this complex patient more than 50% of the time was spent in counseling and care coordination. I reviewed the documentation as provided by the JOSE JUAN above, who is the original author of this note. I agree with the documented assessment and plan, with the following changes: none Past Medical History Past Medical History: COPD, Hypertension, Myocardial Infarction (PA) Last Myocardial Infarction Date:: 2020 History of Any Multi-Drug Resistant Organisms: None Reported Past Surgical History: Heart Catheterization With Stent Date of Last Stent Placement:: 2020 Past Psychological History: No Psychological Hx Reported Smoking Status: Former smoker Past Alcohol Use History: None Reported Past Drug Use History: None Reported Medications and Allergies Home Medications Medication Instructions Recorded Confirmed Type Atorvastatin Calcium [Lipitor] 80 mg PO HS 04/26/22 05/12/22 History FLUoxetine HCL [PROzac] 20 mg PO DAILY 04/26/22 05/12/22 History FLUoxetine HCL [PROzac] 40 mg PO DAILY 04/26/22 05/12/22 History Famotidine [Pepcid] 40 mg PO DAILY 04/26/22 05/12/22 History Isosorbide Mononitrate ER [Imdur] 90 mg PO DAILY 04/26/22 05/12/22 History Lansoprazole [Prevacid] 30 mg PO DAILY 04/26/22 05/12/22 History Metoprolol Tartrate [Lopressor] 25 mg PO BID 04/26/22 05/12/22 History Nitroglycerin Sl Tabs [Nitrostat] 0.4 mg SUBLINGUAL Q5M PRN 04/26/22 05/12/22 History Pantoprazole Sodium 40 mg PO BID 04/26/22 05/12/22 History Ranolazine [Ranolazine ER] 500 mg PO BID 04/26/22 05/12/22 History rOPINIRole HCL [Requip] 0.5 mg PO TID 04/26/22 05/12/22 History Acetaminophen Tab [Tylenol] 650 mg PO Q4HR PRN tab 04/30/22 05/12/22 Rx Albuterol Inhaler [Ventolin Hfa 2 puff INHALATION RT-QID 30 Days 04/30/22 05/12/22 Rx Inhaler] #1 each Ascorbic Acid [Vitamin C] 1,000 mg PO DAILY #60 tab 04/30/22 05/12/22 Rx Cholecalciferol [Vitamin D3 (125 125 mcg PO DAILY 30 Days #30 tab 04/30/22 1 07/12/21 Rx Mcg = 5000 Iu)] Zinc Sulfate [Orazinc] 220 mg PO DAILY 14 Days #14 cap 04/30/22 05/12/22 Rx predniSONE See Taper PO DIRECTED 05/12/22 05/12/22 History Allergies Allergy/AdvReac Type Severity Reaction Status Date / Time codeine Allergy Swelling Verified 05/12/22 13:19 Physical Exam Osteopathic Statement: *. No significant issues noted on an osteopathic structural exam other than those noted in the History and Physical/Consult. Vitals: Vital Signs Temp Pulse Pulse Pulse Resp BP BP 05/12/22 14:56 104 H 18 125/66 05/12/22 13:43 93 20 138/66 05/12/22 13:18 107 H 17 05/12/22 13:17 105 H 18 156/88 05/12/22 13:16 98.0 F 94 18 05/12/22 12:58 93 05/12/22 12:25 100 05/12/22 12:20 97.9 F 100 18 173/93 BP BP Pulse Ox 05/12/22 14:56 98 05/12/22 13:43 96 05/12/22 13:18 150/82 96 05/12/22 13:17 98 05/12/22 13:16 141/91 95 05/12/22 12:58 05/12/22 12:25 05/12/22 12:20 98 Intake and Output 05/12/22 05/12/22 05/12/22 06:59 14:59 22:59 Other: Weight 83.461 kg Results CBC & Chem 7: 05/12/22 12:33 05/12/22 12:33 Labs: Abnormal Lab Results - Last 24 Hours (Table) 05/12/22 05/12/22 05/12/22 Range/Units 12:33 12:33 12:33 WBC 11.6 H (3.8-10.6) k/uL Neutrophils # 9.3 H (1.3-7.7) k/uL APTT 20.4 L (22.0-30.0) sec Glucose 100 H (74-99) mg/dL ALT 51 H (4-49) U/L
[2022-05-12] MEDS: ALBUTEROL NEBULIZED 2.5 MG/3 ML INHALATION SCH ×2 (16:34→20:12)
[2022-05-12] MEDS ORDERED: MECLIZINE 25 MG TAB PO STA (17:02)
--- NOTE | 2022-05-12 17:04 | P.CNNES ---
History of Present Illness Consult date: 05/12/22 Requesting physician: Anjum Fuchs Reason for Consult: headache/lightheadedness/dizziness and lef tfacial numness with abnl CT History of Present Illness: This is a 62-year-old gentleman with recent COVID-19 infection and 04/25/2022 who presented emergency department because of chest pain. He stated that he is having some dizziness lightheadedness and headache for the past 2 weeks wears a some visual changes over the left eye and feels he has left facial numbness. Even since he had COVID-19 inection on 04/25/2022, he has having a bilateral frontal headaches that is constant and currently he states is 5 out of 10 in the and the but denies any photophobia, phonophobia, nausea or vomiting. He said the headache has not resolving and the headache can be more than a 5. He feels the pressure headache. Denies any radiation He also feels dizzy at rest and with position. He also feels the left side of the cheek has been numb for the same duration and feels his left vision is off especially looking to the far le ft. Having generalized weakness. Denies fever. He denies any history of stroke. Denies tobacco use alcohol use or illicit drug use. Some of the workup during his hospital visit consisted of: Initial vital signs was blood pressure 173/93, heart rate of 100, respiratory of 18, temperature of 97.9 Fahrenheit oral pulse ox of 98%. Patient blood pressure has improved down to the 120s over 60s to 80s Initial white blood cells 11.6 and slightly neutrophilic otherwise rest of CBC with differential is unremarkable ALTs 51 otherwise the rest 2 pounds unremarkable Montes virus PCR was not detected. CT of the head is reported as no acute intracranial process. White matter changes which are suboptimally evaluated in the CT examinations most pronounced in the posterior aspect of parietal lobe and occipital lobe consider MRI eval should to rule out posterior reversible encephalopathy syndrome. Review of Systems Review of system: The 12 point system was reviewed and apparent positive and negative per HPI. Past Medical History Past Medical History: COPD, Hypertension, Myocardial Infarction (ID) Last Myocardial Infarction Date:: 2020 History of Any Multi-Drug Resistant Organisms: None Reported Past Surgical History: Heart Catheterization With Stent Date of Last Stent Placement:: 2020 Past Psychological History: No Psychological Hx Reported Smoking Status: Former smoker Past Alcohol Use History: None Reported Past Drug Use History: None Reported Medications and Allergies Home Medications Medication Instructions Recorded Confirmed Type Atorvastatin Calcium [Lipitor] 80 mg PO HS 04/26/22 05/12/22 History FLUoxetine HCL [PROzac] 20 mg PO DAILY 04/26/22 05/12/22 History FLUoxetine HCL [PROzac] 40 mg PO DAILY 04/26/22 05/12/22 History Famotidine [Pepcid] 40 mg PO DAILY 04/26/22 05/12/22 History Isosorbide Mononitrate ER [Imdur] 90 mg PO DAILY 04/26/22 05/12/22 History Lansoprazole [Prevacid] 30 mg PO DAILY 04/26/22 05/12/22 History Metoprolol Tartrate [Lopressor] 25 mg PO BID 04/26/22 05/12/22 History Nitroglycerin Sl Tabs [Nitrostat] 0.4 mg SUBLINGUAL Q5M PRN 04/26/22 05/12/22 History Pantoprazole Sodium 40 mg PO BID 04/26/22 05/12/22 History Ranolazine [Ranolazine ER] 500 mg PO BID 04/26/22 05/12/22 History rOPINIRole HCL [Requip] 0.5 mg PO TID 04/26/22 05/12/22 History Acetaminophen Tab [Tylenol] 650 mg PO Q4HR PRN tab 04/30/22 05/12/22 Rx Albuterol Inhaler [Ventolin Hfa 2 puff INHALATION RT-QID 30 Days 04/30/22 05/12/22 Rx Inhaler] #1 each Ascorbic Acid [Vitamin C] 1,000 mg PO DAILY #60 tab 04/30/22 05/12/22 Rx Cholecalciferol [Vitamin D3 (125 125 mcg PO DAILY 30 Days #30 tab 04/30/22 05/12/22 Rx Mcg = 5000 Iu)] Zinc Sulfate [Orazinc] 220 mg PO DAILY 14 Days #14 cap 04/30/22 05/12/22 Rx predniSONE See Taper PO DIRECTED 05/12/22 05/12/22 History Allergies Allergy/AdvReac Type Severity Reaction Status Date / Time codeine Allergy Swelling Verified 05/12/22 13:19 Physical Examination - Vital Signs Vital Signs: Vital Signs Temp Pulse Pulse Pulse Resp BP BP 05/12/22 16:08 106 H 16 128/86 05/12/22 14:56 104 H 18 125/66 05/12/22 13:43 93 20 138/66 05/12/22 13:18 107 H 17 05/12/22 13:17 105 H 18 156/88 05/12/22 13:16 98.0 F 94 18 05/12/22 12:58 93 05/12/22 12:25 100 05/12/22 12:20 97.9 F 100 18 173/93 BP BP Pulse Ox 05/12/22 16:08 97 05/12/22 14:56 98 05/12/22 13:43 96 05/12/22 13:18 150/82 96 05/12/22 13:17 98 05/12/22 13:16 141/91 95 05/12/22 12:58 05/12/22 12:25 05/12/22 12:20 98 Intake and Output 05/12/22 05/12/22 05/12/22 06:59 14:59 22:59 Other: Weight 83.461 kg GENERAL: The patient is lying in bed and is in mild acute distress. CHEST: The heart rate is regular rate rhythm. No murmurs to auscultation. No carotid bruit bilaterally. LUNG: Clear to auscultation bilaterally no wheezing noted throughout. Not labored breathing. ABDOMEN/GI: Bowel sounds present in all 4 quadrants. No tenderness to palpation throughout. NEUROLOGICAL: Higher mental function: The patient is awake, alert, oriented to self, place and time. Patient is following commands. No aphasia and no neglect. Cranial nerves: The pupils are round, equal and reactive to light and accommodation. Visual diana are full to confrontation throughout. Extraocular movement is intact no nystagmus is noted. Facial sensation is decreased to touch over the left V2. The facial strength is normal throughout. Hearing is normal bilaterally to hand rub. Tongue is midline and moved [id number] without any difficulty. No dysarthria is noted. Shoulder shrug is normal b ilaterally. Motor: The strength is left lower appears 4+ to 5- proximally. 5 over 5 throughout uppers and right lower. Normal tone and bulk. Cerebellum: Normal finger to nose bilaterally. Sensation: Sensation is normal to touch throughout. Reflexes (right/left): 2+ Plantars are downgoing bilaterally. Results - Laboratory Findings CBC and BMP: 05/12/22 12:33 05/12/22 12:33 Abnormal Lab Findings: Abnormal Labs 05/12/22 05/12/22 05/12/22 12:33 12:33 12:33 WBC 11.6 H Neutrophils # 9.3 H APTT 20.4 L Glucose 100 H ALT 51 H Assessment and Plan Assessment: Dizziness, left facial numbness with constant headache and generalized weakness for the past 2 weeks (since COVID-19 04/25/2022). In the CT is hypoattenuation in bilateral parietaloccipital possilbe posterior reversible encephalopathy. Rule out any other causes such as mass or ischemia. Acute chest pain Recent COVID-19 infection on 04/25/2022 Slight escalated hypertension with on presentation style blood pressure was in the 170s and currently controlled. History of coronary artery disease status post stent Plan: I ordered MRI of the brain with and without STAT. Ordered carotid duplex Ordered ESR, CRP, TSH, vitamin B12, folate. I started the patient on Meclizine 25mg once then 12.5mg bid Cardiology is consulted for acute chest pain We'll defer the rest of the medical management to primary team The plan is discussed with the patient and primary team. Thank you consultation
[2022-05-12] MEDS: PANTOPRAZOLE 40 MG TABLET PO SCH (17:11)
[2022-05-12] MEDS: NITROGLYCERIN OINT 1 INCH/GM PACKET TOPICAL SCH ×2 (18:20→23:24)
--- NOTE | 2022-05-12 18:21 | MR ---
EXAMINATION TYPE: MR brain wo/w con DATE OF EXAM: 05/12/2022 COMPARISON: HISTORY: Headache, dizziness, abnormal CT. CONTRAST: Standard multiplanar, multisequence MRI departmental protocol images were obtained without contrast a nd with 7.5 mL intravenous Gadavist gadolinium contrast. Ventricles have normal size. There is no mass effect nor midline shift. No sign of intracranial hemor rhage. There is mild cerebral cortical atrophy. Diffusion images show no sign of an acute infarct. On the T2 and FLAIR images there is moderate patchy increased signal in the periventricular white mat ter that is somewhat coalescent and measures up to 1.5 cm in thickness. There is also involvement of the uriel bilaterally with areas that measure up to 1 cm in thickness. The cerebellum is intact. Contrast images show no pathologic enhancement. There is normal enhancement of the venous sinuses. Th e sella turcica appears normal. No evidence of orbital mass. IMPRESSION: Extensive white matter signal changes as above also involving the brainstem and could relate to signi ficant demyelinating disease. Microvascular ischemia also possible. No cortical infarct.
[2022-05-12] MEDS ORDERED: PROCHLORPERAZINE INJ 10 MG/2 ML VIAL IVP STA (18:29)
[2022-05-12] MEDS ORDERED: diphenhydrAMINE 50 MG/ML 1 ML VIAL IVP STA (18:29)
[2022-05-12] MEDS ORDERED: KETOROLAC 15 MG/ML 1 ML VIAL IVP STA (18:29)
[2022-05-12] MEDS: METOPROLOL TARTRATE 25 MG TAB PO SCH (21:02)
[2022-05-12] MEDS: MECLIZINE 12.5 MG TAB PO SCH (21:02)
[2022-05-12] MEDS: ATORVASTATIN 80 MG TAB PO SCH (21:02)
[2022-05-12] MEDS: RANOLAZINE 500 MG TAB.ER.12H PO SCH (21:02)
[2022-05-13] MEDS: NITROGLYCERIN OINT 1 INCH/GM PACKET TOPICAL SCH (06:13)
[2022-05-13] MEDS: PANTOPRAZOLE 40 MG TABLET PO SCH ×2 (06:47→17:24)
[2022-05-13] MEDS: ALBUTEROL NEBULIZED 2.5 MG/3 ML INHALATION SCH ×4 (08:11→20:19)
[2022-05-13] MEDS ORDERED: ENOXAPARIN 40 MG/0.4 ML SYRINGE SQ SCH (09:00)
[2022-05-13] MEDS ORDERED: ASPIRIN 325 MG TAB PO SCH (09:00)
[2022-05-13] MEDS: FLUoxetine HCL 20 MG CAP PO SCH ×3 (09:14→10:32)
[2022-05-13] MEDS: METOPROLOL TARTRATE 25 MG TAB PO SCH ×2 (09:14→20:26)
[2022-05-13] MEDS: ISOSORBIDE MONONITRATE ER 30 MG TAB.ER.24H PO SCH (09:14)
[2022-05-13] MEDS: MECLIZINE 12.5 MG TAB PO SCH ×3 (09:14→20:26)
[2022-05-13] MEDS: ZINC SULFATE 220 MG CAP PO SCH (09:14)
[2022-05-13] MEDS: CHOLECALCIFEROL 125 MCG (5000 IU) TABLET PO SCH (09:15)
[2022-05-13] MEDS: RANOLAZINE 500 MG TAB.ER.12H PO SCH ×2 (09:15→20:56)
[2022-05-13] MEDS: ASCORBIC ACID 500 MG TAB PO SCH (09:15)
[2022-05-13 09:41] LABS: HCT 45.3 % (39.6-50.0); HGB 14.6 g/dL (13.0-17.0); MCH 30.5 pg (27.0-32.0); MCHC 32.2 g/dL (32.0-37.0); MCV 94.6 fL (80.0-97.0); Mean Platelet Volume 9.5 fL (9.5-12.2); NRBC Per 100 WBC 0 /100 WBCS (0.0-0.0); Platelet Count 185 X 10*3/uL (140-440); RBC 4.79 X 10*6/uL (4.40-5.60); RDW 13.2 % (11.5-14.5); WBC 7.77 X 10*3/uL (4.50-10.00)
--- NOTE | 2022-05-13 09:47 | CA ---
Transthoracic Echo Report Name: Sonu Garcia Age: 62 Gender: M : 1960 Exam Date: 05/13/2022 08:44 Exam Location: [facility] Ht (in): 66 Wt (lb): 184 Ordering Physician: Lissy Perry Attending/Referring Phys: [id number], Vicky Corporate Compliance Director Lulu Carrasquillo, LESLIE Procedure CPT: Indications: LV function Cardiac Hx: Technical Quality: Good Contrast 1: Total Dose (mL): Contrast 2: Total Dose (mL): MEASUREMENTS (Male / Female) Normal Values 2D ECHO LV Diastolic Diameter PLAX 4.5 cm 4.2 - 5.9 / 3.9 - 5.3 cm LV Systolic Diameter PLAX 2.4 cm IVS Diastolic Thickness 1.1 cm 0.6 - 1.0 / 0.6 - 0.9 cm LVPW Diastolic Thickness 1.2 cm 0.6 - 1.0 / 0.6 - 0.9 cm LV Relative Wall Thickness 0.5 RV Internal Dim ED PLAX 3.0 cm LA Systolic Diameter LX 3.4 cm 3.0 - 4.0 / 2.7 - 3.8 cm LV Diastolic Volume MOD BP 67.4 cm??? 67 - 155 / 56 - 104 cm??? LV Systolic Volume MOD BP 31.6 cm??? 22 - 58 / 19 - 49 cm??? LV Ejection Fraction MOD BP 53.1 % >= 55 % LV Diastolic Volume MOD 4C 83.5 cm??? LV Systolic Volume MOD 4C 42.0 cm??? LV Ejection Fraction MOD 4C 49.8 % LV Diastolic Length 4C 7.5 cm LV Systolic Length 4C 6.6 cm LV Diastolic Volume MOD 2C 60.3 cm??? LV Systolic Volume MOD 2C 30.0 cm??? LV Ejection Fraction MOD 2C 50.2 % LV Diastolic Length 2C 7.3 cm LV Systolic Length 2C 6.4 cm LA Volume 42.3 cm??? 18 - 58 / 22 - 52 cm??? M-MODE Aortic Root Diameter MM 3.0 cm MV E Point Septal Separation 0.6 cm AV Cusp Separation MM 1.9 cm DOPPLER AV Peak Velocity 157.7 cm/s AV Peak Gradient 10.0 mmHg MV Area PHT 2.1 cm??? Mitral E Point Velocity 67.3 cm/s Mitral A Point Velocity 71.5 cm/s Mitral E to A Ratio 0.9 MV Deceleration Time 356.7 ms MV E' Velocity 8.2 cm/s Mitral E to MV E' Ratio 8.2 TR Peak Velocity 245.3 cm/s TR Peak Gradient 24.1 mmHg Right Ventricular Systolic Press 28.6 mmHg FINDINGS Left Ventricle Left ventricular ejection fraction is estimated at 50-55 %. Left ventricular cavity size normal. Mildly decreased left ventricular ejection fraction. Borderline left ventricular hypertrophy. Right Ventricle Normal right ventricular size. Right ventricular systolic pressure within normal limits. Right Atrium Normal right atrial size. Left Atrium Normal left atrial size. Mitral Valve Structurally normal mitral valve. No mitral stenosis, regurgitation or prolapse. Aortic Valve Trileaflet aortic valve. No aortic valve stenosis or regurgitation. Tricuspid Valve Structurally normal tricuspid valve. Mild tricuspid regurgitation. Pulmonic Valve Trace pulmonic regurgitation. Pericardium No pericardial effusion. Aorta Normal size aortic root and proximal ascending aorta. CONCLUSIONS Left ventricular ejection fraction 50-55% Borderline increased left ventricular wall thickness RVSP 28 No mitral regurgitation Mild tricuspid regurgitation No pericardial effusion Previewed by: Dr. Te Fonseca DO (Electronically Signed) Final Date: 13 May 2022 09:46
[2022-05-13 10:21] LABS: ALT 46 U/L (10-49); AST 23 U/L (14-35); African American GFR (CKD) 98.2 (60.0-200.0); Albumin 3.7 g/dL (3.8-4.9); Albumin/Globulin Ratio 1.84 (1.60-3.17); Alkaline Phosphatase 84 U/L (41-126); BUN/Creat Ratio 18.61 Ratio (12.00-20.00); Blood Urea Nitrogen 17.7 mg/dL (9.0-27.0); Carbon Dioxide 28.9 mmol/L (20.0-27.5); Chloride 104 mmol/L (96-109); Chol/HDL Ratio 4.78 Ratio; Glucose 93 mg/dL (70-110); LDL Cholesterol,Calculated 76.5 mg/dL (0.0-131.0); Magnesium 2.1 mg/dL (1.5-2.4); Non-African American GFR(CKD) 84.7 (60.0-200.0); Sodium 142 mmol/L (135-145); Total Protein 5.8 g/dL (6.2-8.2)
--- NOTE | 2022-05-13 10:31 | P.CRDCN ---
History of Present Illness History of present illness: HISTORY OF PRESENT ILLNESS: This is a 62-year-old male with a past medical history significant for COPD with home oxygen use, hypertension, hyperlipidemia, and coronary artery disease with previous stenting 2 (details unknown). Patient recently moved to the area from [place] of state. He is to follow with a consulting services manager in [place]. We have been asked to see the patient in consultation for chest pain. Patient examined at the bedside. Patient reports he had Covid at the beginning of April 2022. He states since that time he has been having multiple issues. He states that he has been having a frequent headache and the left side of his face has been going numb. He reports having some chest discomfort as well over the past couple weeks. He states that the pain will usually last for a minute or so and the pain will go away on its own. He also reports having shortness of breath with exertion since having Covid. He also reports having some dizziness and lightheadedness since Covid as well. * EKG reveals sinus mechanism with no signs of acute ischemia * Chest xray negative for acute process * MRI of the brain: Extensive white matter signal changes also involving the brainstem and could relate to significant demyelinating disease. Microvascular ischemia also possible. No cortical infarct. * Laboratory data: WBC 7.77. Hemoglobin 14.6. Platelet count 108 85. D-dimer 0.53. Sodium 142. Potassium 5.0. BUN 17. Creatinine 1.0. Troponin neg ative 3. TSH 1.380. * Current home cardiac medications include Ranexa 500 mg twice a day, metoprolol titrate 25 mg twice a day, Imdur 90 mg daily, Lipitor 80 mg at night * Echocardiogram obtained revealing ejection fraction 50-55%, mild tricuspid regurgitation REVIEW OF SYSTEMS: At the time of my exam: CONSTITUTIONAL: Denies fever or chills. HEENT: Denies blurred vision, vision changes, or eye pain. Denies hemoptysis CARDIOVASCULAR: Denies chest pain. Denies orthopnea. Denies PND. Denies palpitations RESPIRATORY: Denies shortness of breath. GASTROINTESTINAL: Denies abdominal pain. Denies nausea or vomiting. HEMATOLOGIC: Denies bleeding disorders. GENITOURINARY: Denies any blood in urine. SKIN: Denies pruitis. Denies rash. PHYSICAL EXAM: VITAL SIGNS: Reviewed. GENERAL: Well-developed in no acute distress. HEENT: Head is normocephalic. Pupils are equal, round. Sclerae anicteric. Mucous membranes of the mouth are moist. Neck supple. No JVD or thyromegaly LUNGS: Respirations even and unlabored. Lungs essentially clear to auscultation bilaterally. HEART: Regular rate and rhythm. S1 and S2 heard. ABDOMEN: Soft. Nondistended. Nontender. EXTREMITIES: Normal range of motion. No clubbing or cyanosis. Peripheral pulses intact. No lower extremity edema NEUROLOGIC: Awake and alert. Oriented x 3. ASSESSMENT: Headache Left sided facial numbness Chest pain, ACS ruled out Possible demyelinating disease per brain MRI Coronary artery disease with PCI x 2 (exact details unknown) COPD Chronic hypoxic respiratory failure on home oxygen Hypertension Hyperlipidemia History of COVID, April 2022 PLAN: An acute coronary event has been ruled out Add aspirin 81mg daily 2D echo obtained and reviewed Obtain records from patients previous consulting services manager Recommend outpatient stress testing Further recommendations pending patient course Nurse practitioner note has been reviewed by physician. Signing provider agrees with the documented findings, assessment, and plan of care. Past Medical History Past Medical History: COPD, Hypertension, Myocardial Infarction ([place]) Additional Past Medical History / Comment(s): COVID April 2022 Last Myocardial Infarction Date:: 2020 History of Any Multi-Drug Resistant Organisms: None Reported Past Surgical History: Heart Catheterization With Stent Past Anesthesia/Blood Transfusion Reactions: No Reported Reaction Date of Last Stent Placement:: 2020 Past Psychological History: No Psychological Hx Reported Smoking Status: Former smoker Past Alcohol Use History: None Reported Past Drug Use History: None Reported Medications and Allergies Home Medications Medication Instructions Recorded Confirmed Type Atorvastatin Calcium [Lipitor] 80 mg PO HS 04/26/22 05/12/22 History FLUoxetine HCL [PROzac] 20 mg PO DAILY 04/26/22 05/12/22 History FLUoxetine HCL [PROzac] 40 mg PO DAILY 04/26/22 05/12/22 History Famotidine [Pepcid] 40 mg PO DAILY 04/26/22 05/12/22 History Isosorbide Mononitrate ER [Imdur] 90 mg PO DAILY 04/26/22 05/12/22 History Lansoprazole [Prevacid] 30 mg PO DAILY 04/26/22 05/12/22 History Metoprolol Tartrate [Lopressor] 25 mg PO BID 04/26/22 05/12/22 History Nitroglycerin Sl Tabs [Nitrostat] 0.4 mg SUBLINGUAL Q5M PRN 04/26/22 05/12/22 History Pantoprazole Sodium 40 mg PO BID 04/26/22 05/12/22 History Ranolazine [Ranolazine ER] 500 mg PO BID 04/26/22 05/12/22 History rOPINIRole HCL [Requip] 0.5 mg PO TID 04/26/22 05/12/22 History Acetaminophen Tab [Tylenol] 650 mg PO Q4HR PRN tab 04/30/22 05/12/22 Rx Albuterol Inhaler [Ventolin Hfa 2 puff INHALATION RT-QID 30 Days 04/30/22 05/12/22 Rx Inhaler] #1 each Ascorbic Acid [Vitamin C] 1,000 mg PO DAILY #60 tab 04/30/22 05/12/22 Rx Cholecalciferol [Vitamin D3 (125 125 mcg PO DAILY 30 Days #30 tab 04/30/22 05/12/22 Rx Mcg = 5000 Iu)] Zinc Sulfate [Orazinc] 220 mg PO DAILY 14 Days #14 cap 04/30/22 05/12/22 Rx predniSONE See Taper PO DIRECTED 05/12/22 05/12/22 History Allergies Allergy/AdvReac Type Severity Reaction Status Date / Time codeine Allergy Swelling Verified 05/12/22 13:19 Physical Exam Vitals: Vital Signs Temp Pulse Pulse Pulse Resp BP BP 05/13/22 08:12 84 05/13/22 07:00 97.7 F 84 17 05/13/22 02:33 97.8 F 83 17 05/12/22 20:21 93 05/12/22 20:12 91 05/12/22 19:07 97.9 F 107 H 18 05/12/22 18:51 107 H 05/12/22 18:21 97.5 F L 120 H 18 160/90 05/12/22 17:08 98.1 F 112 H 17 149/85 05/12/22 16:42 92 05/12/22 16:35 90 05/12/22 16:08 106 H 16 128/86 05/12/22 14:56 104 H 18 125/66 05/12/22 13:43 93 20 138/66 05/12/22 13:18 107 H 17 05/12/22 13:17 105 H 18 05/12/22 13:16 98.0 F 94 18 05/12/22 12:58 93 05/12/22 12:25 100 05/12/22 12:20 97.9 F 100 18 173/93 BP BP BP BP Pulse Ox 05/13/22 08:12 93 L 05/13/22 07:00 125/73 96 05/13/22 02:33 118/76 95 05/12/22 20:21 05/12/22 20:12 05/12/22 19:07 154/80 96 05/12/22 18:51 05/12/22 18:21 98 05/12/22 17:08 95 05/12/22 16:42 05/12/22 16:35 05/12/22 16:08 97 05/12/22 14:56 98 05/12/22 13:43 96 05/12/22 13:18 150/82 96 05/12/22 13:17 156/88 98 05/12/22 13:16 141/91 95 05/12/22 12:58 05/12/22 12:25 05/12/22 12:20 98 Intake and Output 05/12/22 05/13/22 05/13/22 22:59 06:59 14:59 Other: # Voids 1 1 Weight 83.461 kg Results 05/13/22 05:08 05/13/22 05:08 Cardiac Enzymes 05/12/22 05/12/22 05/12/22 Range/Units 12:33 12:33 15:21 AST 32 (17-59) U/L Troponin I <0.012 <0.012 (0.000-0.034) ng/mL 05/12/22 Range/Units 18:26 AST (17-59) U/L Troponin I <0.012 (0.000-0.034) ng/mL Coagulation 05/12/22 Range/Units 12:33 PT 10.4 (9.0-12.0) sec APTT 20.4 L (22.0-30.0) sec CBC 05/12/22 Range/Units 12:33 WBC 11.6 H (3.8-10.6) k/uL RBC 5.08 (4.30-5.90) m/uL Hgb 16.0 (13.0-17.5) gm/dL Hct 46.8 (39.0-53.0) % Plt Count 215 (150-450) k/uL Comprehensive Metabolic Panel 05/12/22 Range/Units 12:33 Sodium 137 (137-145) mmol/L Potassium 4.5 (3.5-5.1) mmol/L Chloride 102 (98-107) mmol/L Carbon Dioxide 30 (22-30) mmol/L BUN 18 (9-20) mg/dL Creatinine 0.82 (0.66-1.25) mg/dL Glucose 100 H (74-99) mg/dL Calcium 8.7 (8.4-10.2) mg/dL AST 32 (17-59) U/L ALT 51 H (4-49) U/L Alkaline Phosphatase 114 (38-126) U/L Total Protein 6.8 (6.3-8.2) g/dL Albumin 4.2 (3.5-5.0) g/dL Current Medications Generic Name Dose Route Start Last Admin Trade Name Freq PRN Reason Stop Dose Admin Albuterol Sulfate 2.5 mg 05/12/22 16:00 05/13/22 08:11 Albuterol Nebulized 2.5 Mg/3 Ml INHALATION 2.5 mg RT-QID [facility]IKEL Administration Ascorbic Acid 1,000 mg 05/13/22 09:00 Ascorbic Acid 500 Mg Tab PO DAILY [facility] Aspirin 325 mg 05/13/22 09:00 Aspirin 325 Mg Tab PO DAILY [facility] Atorvastatin Calcium 80 mg 05/12/22 21:00 05/12/22 21:02 Atorvastatin 80 Mg Tab PO 80 mg HS [facility] Administration Cholecalciferol 125 mcg 05/13/22 09:00 Cholecalciferol 125 Mcg (5000 Iu) Tablet PO DAILY [facility] Enoxaparin Sodium 40 mg 05/13/22 09:00 Enoxaparin 40 Mg/0.4 Ml Syringe SQ DAILY [facility] Fluoxetine HCl 20 mg 05/13/22 09:00 Fluoxetine Hcl 20 Mg Cap PO DAILY [facility] Fluoxetine HCl 40 mg 05/13/22 09:00 Fluoxetine Hcl 20 Mg Cap PO DAILY [facility] Isosorbide Mononitrate 90 mg 05/13/22 09:00 Isosorbide Mononitrate Er 30 Mg Tab.Er.24h PO DAILY [facility] Meclizine HCl 12.5 mg 05/12/22 22:00 05/12/22 21:02 Meclizine 12.5 Mg Tab PO 12.5 mg TID MAIKEL Administration Metoprolol Tartrate 25 mg 05/12/22 21:00 05/12/22 21:02 Metoprolol Tartrate 25 Mg Tab PO 25 mg BID [facility]IKEL Administration Nitroglycerin 0.4 mg 05/12/22 14:55 Nitroglycerin Sl Tabs 0.4 Mg Tab SUBLINGUAL Q5M PRN Chest Pain Nitroglycerin 1 inch 05/12/22 18:00 05/13/22 06:13 Nitroglycerin Oint 1 Inch/Gm Packet TOPICAL Not Given Q6HR [facility]IKEL Pantoprazole Sodium 40 mg 05/12/22 17:30 05/13/22 06:47 Pantoprazole 40 Mg Tablet PO 40 mg AC-BID [facility]IKEL Administration Ranolazine 500 mg 05/12/22 21:00 05/12/22 21:02 Ranolazine 500 Mg Tab.Er.12h PO 500 mg BID [facility]IK[facility] Administration Ropinirole HCl 0.5 mg 05/12/22 16:00 05/12/22 21:02 Ropinirole Hcl 0.25 Mg Tab PO 0.5 mg TID MAIKEL Administration Zinc Sulfate 220 mg 05/13/22 09:00 Zinc Sulfate 220 Mg Cap PO DAILY [facility] Intake and Output 05/12/22 05/13/22 05/13/22 22:59 06:59 14:59 Other: # Voids 1 1 Weight 83.461 kg 05/12/22 12:33 05/12/22 12:33
--- NOTE | 2022-05-13 11:43 | P.PCN ---
Date of Procedure: 05/13/22 Description of Procedure: Procedure: 1. Lumbar puncture for CSF collection PREOPERATIVE DIAGNOSIS: Headache, abnormal MRI findings POSTOPERATIVE DIAGNOSIS: Headache, and abnormal MRI findings SURGEON: Sandrine Gomez ANESTHESIA: Local with 1% lidocaine, and IV sedation : None EBL: None. Specimen removed: 2 mL of CSF in each collecting tube X3, 6 mL of CSF in one tube PROCEDURE INDICATION: The patient had history of history of headache, and abnormal MRI findings Consulted for lumbar puncture for CSF collection send it for analysis. PROCEDURE DESCRIPTION: The patient was seen and identified. Risks, benefits, complications, and alternatives were discussed with the patient. The patient agreed to proceed with the procedure and signed the consent, and vital signs were stable. Patient was taken to the procedure area, and time out was completed. The patient was placed in left lateral position on procedure. . The lumbosacral area was prepped with ChloraPrep 2 and draped in the usual sterile fashion. Critical 3 min pause was taken. Vital signs were closely monitored during the procedure. Posterior superior iliac crest landmarks was identified . The midline lumbar space also identified. Approximately at the level of L4-L5 interspinous space, skin and deeper tissues were localized with 5 mL of 1% lidocaine. Using a 22 gauge 3.5 spinal needle entered into subarachnoid space, with 1 attempt. Clear CSF came out of the spinal needle. 2 mL of CSF fluid collected in each tube 3, last tube collected 6 mL of CSF. Needle was withdrawn intact, skin was cleansed, and bandages were applied. Opening CSF pressure: 23 Closing CSF pressure: 19 COMPLICATIONS: None. DISPOSITION / PLANS: The patient was placed in a supine position and transferred to the recovery area in a stable condition for observation. Patient was discharged from the recovery room after meeting discharge criteria. Home discharge instructions given to the patient by the staff. The patient was reexamined prior to discharge.
[2022-05-13] MEDS ORDERED: LACTATED RINGERS 1,000 ML IV SCH (11:45)
--- NOTE | 2022-05-13 11:53 | P.PN ---
Subjective Progress Note Date: 05/13/22 Hospital course: Patient is a very pleasant 62-year-old male with a past medical history of CAD stenting, angina, hypertension, hyperlipidemia, GERD, and COPD. Patient presented to the emergency department with a chief complaint of chest pain. Patient reports he went to his PCPs this morning because he's been experiencing weakness, dizziness, lightheadedness, and a headache 2 weeks accompanied by visual changes in his left eye and left-sided facial numbness. Patient reports he was diagnosed with Covid infection on 04/25/22 and initially felt that maybe this was resulting from this as the symptoms began shortly after diagnosis. Patient reports in addition to the above complaints he has been experiencing intermittent chest pain and shortness of breath but he went to the doctor's today to undergo evaluation for the dizziness and lightheadedness because he thinks if this would just stop everything else would feel better. Patient states while at the doctor's he again developed some chest pressure and shortness of breath and was sent to the hospital for further evaluation. Patient denies having any fevers, chills, tinnitus or changes in hearing, palpitations, persistent cough or congestion, nausea or vomiting, or experiencing any numbness/tingling/weakness/swelling in his extremities. Upon arrival to the department patient initially hypertensive with blood pressure 173/93 and heart rate of 100. CBC revealed mild leukocytosis with WBC count of 11.6 and CMP showing no significant abnormalities. Troponin was less than 0.012 and Covid PCR was negative. EKG was completed revealing normal sinus rhythm at 100 bpm. Chest x-ray negative for acute cardiopulmonary process, revealing hyperinflation compatible with COPD. CT brain revealing scattered hypoattenuatin g areas (white matter changes) seen within the white matter most pronounced in the posterior aspects of the parietal and occipital lobe. Patient admitted under our services with consultation to neurology and cardiology. Patient monitored overnight and troponins trended all negative at less than 0.0123 draws. CRP 0.30 and d-dimer negative at 0.53. MRI completed revealing extensive white matter signal changes involving the brainstem possibly relating to significant demyelinating disease or microvascular ischemia. Neurology has placed order for lumbar puncture to be completed later this morning. Physical exam: Patient seen and fully evaluated at bedside. Initially patient reported feeling better but reports this morning he continues to have a mild headache and loss of peripheral vision in left eye. He denies having any chest pain, palpitations, or shortness of breath at this time. Echocardiogram completed and pending results. Patient preparing to go down for lumbar puncture. Vital signs reviewed and stable. General: Nontoxic, no distress and appears stated age. Derm: Skin warm and dry, normal coloration for ethnicity. Head: Atraumatic, normocephalic and symmetric. Eyes: EOMs intact, no lid lag, and anicteric sclera Mouth: no lip lesions, mucus membranes moist Cardiovascular: regular rate and rhythm with normal S1S2, no murmur, positive posterior tibial pulses bilaterally, and cap refill < 2 seconds. Lungs: Respirations even, regular, and unlabored on room air. Lungs CTA bilaterally, no rhonchi, no rales, no wheezing, and no accessory muscle usage. Abdominal: soft, nontender to palpation, no guarding, no appreciable organomegaly Ext: ROM intact. No gross muscle atrophy, no edema, no contractures Neuro: Speech clear, face symmetrical and CN II-XII grossly intact with no noted focal neuro deficits Psych: Alert and oriented to person, place, time, and situation. Appropriate and pleasant affect. Assessment and Plan of Care: Chest pain/pressure and shortness of breath, rule out acute coronary event History of CAD status post stenting Hypertension Hyperlipidemia -Cardiology following, appreciate further recommendations -Telemetry monitoring -Cardiac diet -Continue cardiac medication regimen with Aspirin, atorvastatin, isosorbide mononitrate, ranolazine and metoprolol -Lipid profile with a.m. labs. -Echocardiogram completed and pending results Headache, lightheadedness, dizziness, and visual changes of left eye with left- sided facial numbness -CT brain revealing scattered hypoattenuating areas (white matter changes) seen within the white matter most pronounced in the posterior aspects of the parietal and occipital lobe. -Neurology consulted to rule out PRES vs other neurological disorder. -Neuro checks every 4 hours -Continue daily blood pressure medication regimen and monitor vital signs closely for optimization of blood pressure control, may need to make some adjustments to her antihypertensive medication regimen but currently BP has improved from 173/93 down to 141/91. -Telemetry monitoring -Fall precautions -Continue daily aspirin and atorvastatin COPD, not in acute exacerbation -Continue use of albuterol every 4 hours as needed for shortness of breath and/or wheezing. -Incentive spirometer, encourage use 10-15 times hourly while awake during hospitalization CODE STATUS: Full code DVT prophylaxis: Lovenox Discussed with: Patient, RN, and neurologist Anticipated discharge date: 1-[address]: Home A total of 35 minutes was spent on the care of this complex patient more than 50% of the time was spent in counseling and care coordination. I reviewed the documentation as provided by the JOSE JUAN above, who is the original author of this note. I agree with the documented assessment and plan, with the following changes: none Objective - Vital Signs Vital signs: Vital Signs Temp 97.7 F 05/13/22 07:00 Pulse 90 05/13/22 08:25 Resp 17 05/13/22 07:00 BP 125/73 05/13/22 07:00 Pulse Ox 93 L 05/13/22 08:12 FiO2 Intake & Output 05/12/22 05/13/22 05/13/22 18:59 06:59 18:59 Weight 83.461 kg Other: # Voids 1 - Labs CBC & Chem 7: 05/13/22 05:08 05/13/22 05:08 Labs: Abnormal Lab Results - Last 24 Hours (Table) 05/12/22 05/12/22 05/12/22 Range/Units 12:33 12:33 12:33 WBC 11.6 H (3.8-10.6) k/uL Neutrophils # 9.3 H (1.3-7.7) k/uL APTT 20.4 L (22.0-30.0) sec Carbon Dioxide (20.0-27.5) mmol/L Anion Gap (10.00-18.00) mmol/L Glucose 100 H (74-99) mg/dL ALT 51 H (4-49) U/L Total Protein (6.2-8.2) g/dL Albumin (3.8-4.9) g/dL Triglycerides (0.00-149.00) mg/dL VLDL Cholesterol, Calc (5.00-40.00) mg/dL HDL Cholesterol (40.00-60.00) mg/dL 05/13/22 Range/Units 05:08 WBC (3.8-10.6) k/uL Neutrophils # (1.3-7.7) k/uL APTT (22.0-30.0) sec Carbon Dioxide 28.9 H (20.0-27.5) mmol/L Anion Gap 9.20 L (10.00-18.00) mmol/L Glucose (74-99) mg/dL ALT (4-49) U/L Total Protein 5.8 L (6.2-8.2) g/dL Albumin 3.7 L (3.8-4.9) g/dL Triglycerides 270.00 H (0.00-149.00) mg/dL VLDL Cholesterol, Calc 54.00 H (5.00-40.00) mg/dL HDL Cholesterol 34.50 L (40.00-60.00) mg/dL
[2022-05-13 13:32] LABS: Glucose,CSF 53 mg/dL (40-70); Total Protein,CSF 82 mg/dL (12-60)
[2022-05-13] MEDS ORDERED: CYANOCOBALAMIN 1,000 MCG/ML 1 ML VIAL IM ONE (14:19)
--- NOTE | 2022-05-13 15:03 | P.PN ---
Subjective Progress Note Date: 05/13/22 The patient is seen at bedside and he feels drastically better today compared to yesterday. He stated his symptoms has drastically improved. He denies any further numbness on left side of cheek, feels dizziness has improved significantly as well as vision has improved. Headache currently is only 2/10. Objective - Vital Signs Vital signs: Vital Signs Temp 97.7 F 05/13/22 07:00 Pulse 87 05/13/22 13:31 Resp 17 05/13/22 07:00 BP 125/73 05/13/22 07:00 Pulse Ox 93 L 05/13/22 08:12 FiO2 Intake & Output 05/12/22 05/13/22 05/13/22 18:59 06:59 18:59 Intake Total 473 Balance 473 Weight 83.461 kg Intake: Oral 473 Other: # Voids 1 - Exam GENERAL: The patient is lying in bed and is not in acute distress. NEUROLOGICAL: Higher mental function: The patient is awake, alert, oriented to self, place and time. Patient is following commands. No aphasia and no neglect. Cranial nerves: The pupils are round, equal and reactive to light. Visual diana are full to confrontation throughout. Extraocular movement is intact no nystagmus is noted. Facial sensation is normal to touch throughout. The facial strength is normal throughout. Tongue is midline and moved [id number] without any difficulty. No dysarthria is noted. Shoulder shrug is normal bilaterally. Motor: The strength is 5 over 5 throughout. Normal tone and bulk. Cerebellum: Normal finger to nose bilaterally. Sensation: Sensation is normal to touch throughout. Some of the workup during his hospital visit consisted of: Initial vital signs was blood pressure 173/93, heart rate of 100, respiratory of 18, temperature of 97.9 Fahrenheit oral pulse ox of 98%. Patient blood pressure has improved down to the 120s over 60s to 80s Vitamin B12 is 376 Folate is 7 TSH is 1.380 ESR is 5 CRP is 0.30 Lipid panel is triglyceride 270, cholesterol is 165 LDL 76 and HDL 34. ALTs 51 otherwise the rest of comprehensive metabolic panel are unremarkable Montes virus PCR was not detected. CT of the head is reported as no acute intracranial process. White matter changes which are suboptimally evaluated in the CT examinations most pronounced in the posterior aspect of parietal lobe and occipital lobe consider MRI eval should to rule out posterior reversible encephalopathy syndrome. MRI Brain w/ and w/o is reported as extensive white matter signal changes as above also involving the brainstem and could relate to significant demyelination disease. Microvascular ischemia also possible. No cortical infarct. 2-D echo was reported as left ventricle ejection fraction of 50-55%. Borderline increase left ventricle wall thickness. No prior cardial effusion. - Labs CBC & Chem 7: 05/13/22 05:08 05/13/22 05:08 Labs: Abnormal Lab Results - Last 24 Hours (Table) 05/13/22 05/13/22 Range/Units 05:08 11:26 Carbon Dioxide 28.9 H (20.0-27.5) mmol/L Anion Gap 9.20 L (10.00-18.00) mmol/L Total Protein 5.8 L (6.2-8.2) g/dL Albumin 3.7 L (3.8-4.9) g/dL Triglycerides 270.00 H (0.00-149.00) mg/dL VLDL Cholesterol, Calc 54.00 H (5.00-40.00) mg/dL HDL Cholesterol 34.50 L (40.00-60.00) mg/dL CSF Total Protein 82 H (12-60) mg/dL Assessment and Plan Assessment: * Dizziness, left facial numbness with constant headache and generalized weakness for the past 2 weeks (since COVID-19 04/25/2022). MRI reveals either white matter changes of unknown etiology (possible due to microvascular dz vs Demylinating vs other factors like vasculitis etc). Patient symptoms has drastically improved without any steroids which makes MS less likely. Possibly as result of COVID-19 * Acute chest pain * Recent COVID-19 infection on 04/25/2022 * Slight escalated hypertension with on presentation style blood pressure was in the 170s and currently controlled. * History of coronary artery disease status post stent Plan: I ordered a lumbar puncture with opening and closing pressure Recommend MRI of the cervical thoracic with and without as an outpatient. Continue Meclizine 2.5mg bid Because of low normal vitamin B12 I I gave patient on vitamin B-12 1000 g once IM then PO. Also start folic acid 1 mg daily. Cardiology is consulted for acute chest pain We'll defer the rest of the medical management to primary team Recommend the patient follow up with a neurologist as an outpatient within 1-2 weeks. The plan is discussed with the patient and primary team. Besides lumbar puncture no additional workup is needed from a neurologic perspective. UPDATE: tHE OPENING PRESSURE IS 23 AND CLOSING IS 19 (both are normal). Time with Patient: Less than 30
[2022-05-13 15:09] LABS: Appearance,CSF Clear; CSF Tube Number 4; Nucleated Cells, CSF 0 u/L (0-5); Red Blood Cell,CSF 0 u/L (0-10)
[2022-05-13] MEDS: FOLIC ACID 1 MG TAB PO SCH (16:13)
[2022-05-13] MEDS: ATORVASTATIN 80 MG TAB PO SCH (20:26)
[2022-05-13] MEDS: TOPIRAMATE 25 MG TAB PO SCH (20:26)
[2022-05-13] MEDS: ACETAMINOPHEN TAB 325 MG TAB PO PRN (20:57)
[2022-05-14] MEDS: ACETAMINOPHEN TAB 325 MG TAB PO PRN (04:54)
[2022-05-14 06:39] VITALS: RESP 17
[2022-05-14] MEDS: PANTOPRAZOLE 40 MG TABLET PO SCH (06:41)
[2022-05-14] MEDS: CHOLECALCIFEROL 125 MCG (5000 IU) TABLET PO SCH (08:36)
[2022-05-14] MEDS: RANOLAZINE 500 MG TAB.ER.12H PO SCH (08:36)
[2022-05-14] MEDS: ASCORBIC ACID 500 MG TAB PO SCH (08:36)
[2022-05-14] MEDS: ISOSORBIDE MONONITRATE ER 30 MG TAB.ER.24H PO SCH (08:36)
[2022-05-14] MEDS: MECLIZINE 12.5 MG TAB PO SCH (08:36)
[2022-05-14] MEDS: FOLIC ACID 1 MG TAB PO SCH (08:37)
[2022-05-14] MEDS: METOPROLOL TARTRATE 25 MG TAB PO SCH (08:37)
[2022-05-14] MEDS: FLUoxetine HCL 20 MG CAP PO SCH ×2 (08:37→08:42)
[2022-05-14] MEDS: ZINC SULFATE 220 MG CAP PO SCH (08:42)
[2022-05-14] MEDS: TOPIRAMATE 25 MG TAB PO SCH (08:42)
[2022-05-14 08:43] VITALS: BP 124/60; TEMP 97.8
[2022-05-14] MEDS: ALBUTEROL NEBULIZED 2.5 MG/3 ML INHALATION SCH ×2 (08:45→13:05)
[2022-05-14] MEDS ORDERED: ASPIRIN 81 MG PO SCH (09:00)
[2022-05-14] MEDS ORDERED: CYANOCOBALAMIN 500 MCG TAB PO SCH (09:00)
--- NOTE | 2022-05-14 10:19 | P.PN ---
Subjective Progress Note Date: 05/14/22 HISTORY OF PRESENT ILLNESS: This is a 62-year-old male with a past medical history significant for COPD with home oxygen use, hypertension, hyperlipidemia, and coronary artery disease with previous stenting 2 (details unknown). Patient recently moved [place] the area [place] of state. 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 We have been asked to see the patient in consultation for chest pain. Patient examined at the bedside. Patient reports he had Covid at the beginning of April 2022. He states since that time he has been having multiple issues. He states that he has been having a frequent headache and the left side of his face has been going numb. He reports having some chest discomfort as well over the past couple weeks. He states that the pain will usually last for a minute or so and the pain will go away on its own. He also reports having shortness of breath with exertion since having Covid. He also reports having some dizziness and lightheadedness since Covid as well. * EKG reveals sinus mechanism with no signs of acute ischemia * Chest xray negative for acute process * MRI of the brain: Extensive white matter signal changes also involving the brainstem and could relate to significant demyelinating disease. Microvascular ischemia also possible. No cortical infarct. * Laboratory data: WBC 7.77. Hemoglobin 14.6. Platelet count 108 85. D-dimer 0.53. Sodium 142. Potassium 5.0. BUN 17. Creatinine 1.0. Troponin negative 3. TSH 1.380. * Current home cardiac medications include Ranexa 500 mg twice a day, metoprolol titrate 25 mg twice a day, Imdur 90 mg daily, Lipitor 80 mg at night * Echocardiogram obtained revealing ejection fraction 50-55%, mild tricuspid regurgitation 05/14/2022 Patient examined this morning at the bedside. Patient denies chest pain or pressure. He reports SOB with exertion. He reports dizziness when ambulating. He underwent a LP yesterday. Results are pending. 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 Normal LV systolic function. The left main trunk has mild diffuse disease of approximately 20%. The LAD is a large vessel and feeds the apex. There is mild diffuse disease of no greater than 20-30%. The left circumflex is large and dominant. There is mild diffuse disease of no greater than 20- 30%. PHYSICAL EXAM: VITAL SIGNS: Reviewed. GENERAL: Well-developed in no acute distress. HEENT: Head is normocephalic. Pupils are equal, round. Sclerae anicteric. Mucous membranes of the mouth are moist. Neck supple. No JVD or thyromegaly LUNGS: Respirations even and unlabored. Lungs with expiratory wheezing noted. HEART: Regular rate and rhythm. S1 and S2 heard. ABDOMEN: Soft. Nondistended. Nontender. EXTREMITIES: Normal range of motion. No clubbing or cyanosis. Peripheral pulses intact. No lower extremity edema NEUROLOGIC: Awake and alert. Oriented x 3. ASSESSMENT: Headache Left sided facial numbness Chest pain, ACS ruled out Possible demyelinating disease per brain MRI Coronary artery disease with PCI to the RCA in 2020, in [place] COPD Chronic hypoxic respiratory failure on home oxygen Hypertension Hyperlipidemia History of COVID, April 2022 PLAN: Continue current cardiac medications Patient is stable from a cardiac standpoint Recommend outpatient stress testing Patient may be discharged from a cardiac standpoint and follow up in the office with Dr. Fonseca We will sign off. Please reconsult if needed. Nurse practitioner note has been reviewed by physician. Signing provider agrees with the documented findings, assessment, and plan of care. Objective - Vital Signs Vital signs: Vital Signs Temp 97.8 F 05/14/22 08:00 Pulse 82 05/14/22 09:00 Resp 17 05/14/22 08:00 BP 124/60 05/14/22 08:00 Pulse Ox 95 05/14/22 08:46 FiO2 21 05/14/22 08:46 Intake & Output 05/13/22 05/14/22 05/14/22 18:59 06:59 18:59 Intake Total 713 1320 Balance 713 1320 Intake: Intake, IV Titration 240 Amount Lactated Ringers 1,000 ml 240 @ 20 mls/hr IV .Q24H MAIKEL Rx#:[id number] Oral 713 1080 Other: # Voids 4 1 # Bowel Movements 1 - Labs CBC & Chem 7: 05/13/22 05:08 05/13/22 05:08 Labs: Abnormal Lab Results - Last 24 Hours (Table) 05/13/22 05/13/22 Range/Units 05:08 11:26 Carbon Dioxide 28.9 H (20.0-27.5) mmol/L Anion Gap 9.20 L (10.00-18.00) mmol/L Total Protein 5.8 L (6.2-8.2) g/dL Albumin 3.7 L (3.8-4.9) g/dL Triglycerides 270.00 H (0.00-149.00) mg/dL VLDL Cholesterol, Calc 54.00 H (5.00-40.00) mg/dL HDL Cholesterol 34.50 L (40.00-60.00) mg/dL CSF Total Protein 82 H (12-60) mg/dL Microbiology - Last 24 Hours (Table) 05/13/22 11:26 CSF Gram Stain - Preliminary Cerebral Spinal Fluid CSF Culture - Preliminary
[2022-05-14 13:08] VITALS: PULSE 80
--- NOTE | 2022-05-14 13:37 | P.DS ---
Providers Date of admission: 05/12/22 14:56 Expected date of discharge: 05/14/22 Attending physician: Fadumo Morrow MD Consults: 05/12/22 15:45 Consult Physician Routine Consulting Provider: Carter Dobbs Consult Reason/Comments: headache/lightheadedness/dizziness/L facial numbness x [address] Do you want consulting provider notified?: Yes Primary care physician: [facility] Hospital Course: Discharge Diagnosis: Chest pain Shortness of breath History of CAD status post stent Hypertension Dyslipidemia Headache, likely migraine Left vision changes, left-sided facial numbness Lightheadedness, dizziness White matter changes noted on MRI COPD not in exacerbation Hospital Course: Patient is a very pleasant 62-year-old male with a past medical history of CAD stenting, angina, hypertension, hyperlipidemia, GERD, and COPD. Patient presented to the emergency department with a chief complaint of chest pain. Patient reports he went to his PCPs this morning because he's been experiencing weakness, dizziness, lightheadedness, and a headache 2 weeks accompanied by visual changes in his left eye and left-sided facial numbness. Patient reports he was diagnosed with Covid infection on 04/25/22 and initially felt that maybe this was resulting from this as the symptoms began shortly after diagnosis. Roiht ritaangelina reports in addition to the above complaints he has been experiencing intermittent chest pain and shortness of breath but he went to the doctor's today to undergo evaluation for the dizziness and lightheadedness because he thinks if this would just stop everything else would feel better. Patient states while at the doctor's he again developed some chest pressure and shortness of breath and was sent to the hospital for further evaluation. Patient denies having any fevers, chills, tinnitus or changes in hearing, palpitations, persistent cough or congestion, nausea or vomiting, or experien cing any numbness/tingling/weakness/swelling in his extremities. Upon arrival to the department patient initially hypertensive with blood pressure 173/93 and heart rate of 100. CBC revealed mild leukocytosis with WBC count of 11.6 and CMP showing no significant abnormalities. Troponin was less than 0.012 and Covid PCR was negative. EKG was completed revealing normal sinus rhythm at 100 bpm. Chest x-ray negative for acute cardiopulmonary process, revealing hyperinflation compatible with COPD. CT brain revealing scattered hypoattenuating areas (white matter changes) seen within the white matter most pronounced in the posterior aspects of the parietal and occipital lobe. Patient admitted under our services with consultation to neurology and cardiology. Patient monitored overnight and troponins trended all negative at less than 0.0123 draws. CRP 0.30 and d-dimer negative at 0.53. Echo showed EF of 50-55%. Shortness of breath likely secondary to recent COVID-19 infection. Patient to follow-up with cardiology as an outpatient. MRI completed revealing extensive white matter signal changes involving the brainstem possibly relating to significant demyelinating disease or microvascular ischemia. Lumbar puncture opening CSF pressure 23, closing pressure of 19. Cytology and microbiology pending. CSF analysis shows elevated total protein, negative RBCs and nucleated cells. Per neurology, MRI findings clinically not compatible with MS given significant improvement without steroids. He will require further evaluation as an outpatient. Patient is started on topiramate for headaches. Patient seen and examined at bedside. Vital signs reviewed and stable. General: nontoxic, no distress, appears at stated age Derm: warm, dry Head: atraumatic, normocephalic, symmetric Eyes: EOMI, no lid lag, anicteric sclera Mouth: no lip lesion, mucus membranes moist Cardiovascular: S1S2 reg, no murmur Lungs: CTA bilateral, no rhonchi, no rales , no accessory muscle use Abdominal: soft, nontender to palpation, no guarding, no appreciable organomegaly Ext: no gross muscle atrophy, no edema, no contractures Neuro: CN II-XI grossly intact, no focal neuro deficits Psych: Alert, oriented, appropriate affect A total of 43 minutes of time were spent preparing this complex discharge summary. Patient was discharged on 05/14/22 at 13:28. Patient Condition at Discharge: Stable Plan - Discharge Summary Discharge Rx Participant: No New Discharge Prescriptions: New Meclizine [Antivert] 12.5 mg PO TID #30 tab Folic Acid 1 mg PO DAILY #30 tab Aspirin 81 mg PO DAILY #30 tab Topiramate [Topamax] 50 mg PO BID #60 tab Cyanocobalamin [Vitamin B-12] 1,000 mcg PO DAILY #30 tab Continue Ranolazine [Ranolazine ER] 500 mg PO BID Isosorbide Mononitrate ER [Imdur] 90 mg PO DAILY Famotidine [Pepcid] 40 mg PO DAILY FLUoxetine HCL [PROzac] 40 mg PO DAILY Nitroglycerin Sl Tabs [Nitrostat] 0.4 mg SUBLINGUAL Q5M PRN PRN Reason: Chest Pain rOPINIRole HCL [Requip] 0.5 mg PO TID Acetaminophen Tab [Tylenol] 650 mg PO Q4HR PRN tab PRN Reason: Mild Pain Or Fever > 100.5 Ascorbic Acid [Vitamin C] 1,000 mg PO DAILY #60 tab Metoprolol Tartrate [Lopressor] 25 mg PO BID Pantoprazole Sodium 40 mg PO BID Lansoprazole [Prevacid] 30 mg PO DAILY Atorvastatin Calcium [Lipitor] 80 mg PO HS FLUoxetine HCL [PROzac] 20 mg PO DAILY Zinc Sulfate [Orazinc] 220 mg PO DAILY 14 Days #14 cap Albuterol Inhaler [Ventolin Hfa Inhaler] 2 puff INHALATION RT-QID 30 Days #1 each Cholecalciferol [Vitamin D3 (125 Mcg = 5000 Iu)] 125 mcg PO DAILY 30 Days #30 tab Discontinued predniSONE See Taper PO DIRECTED Discharge Medication List Atorvastatin Calcium [Lipitor] 80 mg PO HS 04/26/22 [History] FLUoxetine HCL [PROzac] 20 mg PO DAILY 04/26/22 [History] FLUoxetine HCL [PROzac] 40 mg PO DAILY 04/26/22 [History] Famotidine [Pepcid] 40 mg PO DAILY 04/26/22 [History] Isosorbide Mononitrate ER [Imdur] 90 mg PO DAILY 04/26/22 [History] Lansoprazole [Prevacid] 30 mg PO DAILY 04/26/22 [History] Metoprolol Tartrate [Lopressor] 25 mg PO BID 04/26/22 [History] Nitroglycerin Sl Tabs [Nitrostat] 0.4 mg SUBLINGUAL Q5M PRN 04/26/22 [History] Pantoprazole Sodium 40 mg PO BID 04/26/22 [History] Ranolazine [Ranolazine ER] 500 mg PO BID 04/26/22 [History] rOPINIRole HCL [Requip] 0.5 mg PO TID 04/26/22 [History] Acetaminophen Tab [Tylenol] 650 mg PO Q4HR PRN tab 04/30/22 [Rx] Albuterol Inhaler [Ventolin Hfa Inhaler] 2 puff INHALATION RT-QID 30 Days #1 each 04/30/22 [Rx] Ascorbic Acid [Vitamin C] 1,000 mg PO DAILY #60 tab 04/30/22 [Rx] Cholecalciferol [Vitamin D3 (125 Mcg = 5000 Iu)] 125 mcg PO DAILY 30 Days #30 tab 04/30/22 [Rx] Zinc Sulfate [Orazinc] 220 mg PO DAILY 14 Days #14 cap 04/30/22 [Rx] Aspirin 81 mg PO DAILY #30 tab 05/14/22 [Rx] Cyanocobalamin [Vitamin B-12] 1,000 mcg PO DAILY #30 tab 05/14/22 [Rx] Folic Acid 1 mg PO DAILY #30 tab 05/14/22 [Rx] Meclizine [Antivert] 12.5 mg PO TID #30 tab 05/14/22 [Rx] Topiramate [Topamax] 50 mg PO BID #60 tab 05/14/22 [Rx] Follow up Appointment(s)/Referral(s): Te Fonseca DO [STAFF PHYSICIAN] - 1 Week Yara Wong MD [Primary Care Provider] - 1-2 days Patient Instructions/Handouts: Shortness of Breath (DC) Activity/Diet/Wound Care/Special Instructions: Please follow up with your PCP in 1-[address] Fonseca in the clinic. Please make an appointment with neurology for further evaluation of MRI findings. Discharge/Stand Alone Forms: Anes Pain/Wismer Instructions Discharge Disposition: HOME SELF-CARE
--- NOTE | 2022-05-14 16:22 | P.PN ---
Subjective Progress Note Date: 05/14/22 The patient is seen at bedside and states he continues to be doing well. States has mild headache but denies any numbness face, visual disturbance, dizziness or weakness. Feels back to baseline. Objective - Vital Signs Vital signs: Vital Signs Temp 97.8 F 05/14/22 08:00 Pulse 80 05/14/22 13:06 Resp 17 05/14/22 08:00 BP 124/60 05/14/22 08:00 Pulse Ox 95 05/14/22 08:46 FiO2 21 05/14/22 08:46 Intake & Output 05/13/22 05/14/22 05/14/22 18:59 06:59 18:59 Intake Total 713 1320 462 Balance 713 1320 462 Intake: Intake, IV Titration 240 Amount Lactated Ringers 1,000 ml 240 @ 20 mls/hr IV .Q24H MAIKEL Rx#:[id number] Oral 713 1080 462 Other: # Voids 4 1 2 # Bowel Movements 1 - Exam GENERAL: The patient is lying in bed and is not in acute distress. NEUROLOGICAL: Higher mental function: The patient is awake, alert, oriented to self, place and time. Patient is following commands. No aphasia and no neglect. Cranial nerves: The pupils are round, equal and reactive to light. Visual diana are full to confrontation throughout. Extraocular movement is intact no nystagmus is noted. Facial sensation is normal to touch throughout. The facial strength is normal throughout. Tongue is midline and moved [id number] without any difficulty. No dysarthria is noted. Shoulder shrug is normal bilaterally. Motor: The strength is 5 over 5 throughout. Normal tone and bulk. Cerebellum: Normal finger to nose bilaterally. Sensation: Sensation is normal to touch throughout. Some of the workup during his hospital visit consisted of: Vitamin B12 is 376 Folate is 7 TSH is 1.380 ESR is 5 CRP is 0.30 Lipid panel is triglyceride 270, cholesterol is 165 LDL 76 and HDL 34. ALTs 51 otherwise the rest of comprehensive metabolic panel are unremarkable Montes virus PCR was not detected. CT of the head is reported as no acute intracranial process. White matter changes which are suboptimally evaluated in the CT examinations most pronounced in the posterior aspect of parietal lobe and occipital lobe consider MRI eval should to rule out posterior reversible encephalopathy syndrome. MRI Brain w/ and w/o is reported as extensive white matter signal changes as above also involving the brainstem and could relate to significant demyelination disease. Microvascular ischemia also possible. No cortical infarct. 2-D echo was reported as left ventricle ejection fraction of 50-55%. Borderline increase left ventricle wall thickness. No prior cardial effusion. CSF study: OPENING PRESSURE IS 23 AND CLOSING IS 19 (both are normal). Clear, colorless, o rbc, 0 nucleated cells, glucose 53, protein is 82 (normal is 12- 60). No virus CSF study. No growth after 24 hours. - Labs CBC & Chem 7: 05/13/22 05:08 05/13/22 05:08 Labs: Microbiology - Last 24 Hours (Table) 05/13/22 11:26 CSF Gram Stain - Preliminary Cerebral Spinal Fluid CSF Culture - Preliminary Assessment and Plan Assessment: * Dizziness, left facial numbness with constant headache and generalized weakness for the past 2 weeks (since COVID-19 04/25/2022). MRI reveals either white matter changes of unknown etiology (possible due to microvascular dz vs Demylinating vs other factors like vasculitis etc). Patient symptoms has drastically improved without any steroids which makes MS less likely. Possibly as result of COVID-19. Unknown cause of mild elevated protein in CS F. * Acute chest pain * Recent COVID-19 infection on 04/25/2022 * Slight escalated hypertension with on presentation style blood pressure was in the 170s and currently controlled. * History of coronary artery disease status post stent Plan: Recommend MRI of the cervical thoracic with and without as an outpatient to rule out any underlying MS. Recommend over vasculitis work-up as outpatient if needed by his neurology team. Pending oligoclonal bands. Continue Meclizine 2.5mg bid Because of low normal vitamin B12 I I gave patient on vitamin B-12 1000 g once IM then PO. Also start folic acid 1 mg daily. Cardiology is consulted for acute chest pain We'll defer the rest of the medical management to primary team Recommend the patient follow up with a neurologist as an outpatient within 1-2 weeks. The plan is discussed with the patient and primary team. Time with Patient: Less than 30
[2022-05-16 06:20] LABS: IgG Synthesis Rate 0.87 mg/day (0.00 - 3.00); IgG/Albumin Index (CSF) 0.53 (0.00 - 0.77); Immunoglobulin G 939 mg/dL (700 - 1600)
== END 2022-05-14 14:20 | disposition home or self-care (01) ==
LOC: SUPCPDRO 12:18 → EC 12:18 → 6NMEDSUR 14:56
PROVIDERS: ADMIT Internal Medicine; ATTEND Internal Medicine
DX: R07.89 Other chest pain (principal); J96.11 Chronic respiratory failure with hypoxia; J44.9 Chronic obstructive pulmonary disease, unspecified; R51.9 Headache, unspecified; H53.9 Unspecified visual disturbance; R20.0 Anesthesia of skin; R42 Dizziness and giddiness; I07.1 Rheumatic tricuspid insufficiency; I25.10 Atherosclerotic heart disease of native coronary artery without angina pectoris; I10 Essential (primary) hypertension; E78.5 Hyperlipidemia, unspecified; K21.9 Gastro-esophageal reflux disease without esophagitis; D72.829 Elevated white blood cell count, unspecified; Z20.822 Contact with and (suspected) exposure to COVID-19; Z99.81 Dependence on supplemental oxygen; I25.2 Old myocardial infarction; Z79.899 Other long term (current) drug therapy; Z88.5 Allergy status to narcotic agent; Z95.5 Presence of coronary angioplasty implant and graft; Z87.891 Personal history of nicotine dependence; Z86.16 Personal history of COVID-19
CPT/HCPCS: 96372; 96374; 96375; 99285; 36415; 94640 ×6; 94760; 93005; 93306; 87496; 87498; 87529; 87798 ×2; 85379; 88108; 84157; 83880; 80061; 80053 ×2; 82945; 85652; 84443; 82040; 82042; 82784; 83916; 82607; 82746; 83735 ×2; 83873; 84484; 85025; 85027; 85610; 85730; 86140; 89050; 87252; 87070; 87205; 87635; 71046; 70450; 70553; 62270; G0378 ×3; J1200; J0780; J3420; J1885; A9585; 87075

== ENCOUNTER 2022-06-27 09:37 | Observation (INO) | payer OTHER ==
--- NOTE | 2022-06-27 10:46 | ED ---
Chest Pain HPI - General Source: patient Mode of arrival: ambulatory Limitations: no limitations <Raquel Crowley - Last Filed: 06/27/22 10:45> <Martin Carr - Last Filed: 06/27/22 15:00> - General Chief Complaint: Chest Pain Stated Complaint: chest pain - History of Present Illness Initial Comments: Patient is a 62-year-old male presenting with chief complaint of chest pain. Patient states that for the past few days pain has been present on the left side of the chest. He describes it as a sharp pain. It is present at rest. Level of pain fluctuates through the day. Patient gets some relief by taking nitro. Patient has had a dry cough recently. Admits to some shortness of breath. Denies abdominal pain, nausea, vomiting, dizziness, palpitations, numbness, tingling. (Raquel Crowley) - Related Data Home Medications Medication Instructions Recorded Confirmed Atorvastatin Calcium [Lipitor] 80 mg PO HS 04/26/22 06/27/22 FLUoxetine HCL [PROzac] 20 mg PO DAILY 04/26/22 06/27/22 FLUoxetine HCL [PROzac] 40 mg PO DAILY 04/26/22 06/27/22 Famotidine [Pepcid] 40 mg PO DAILY 04/26/22 06/27/22 Isosorbide Mononitrate ER [Imdur] 90 mg PO DAILY 04/26/22 06/27/22 Lansoprazole [Prevacid] 30 mg PO DAILY 04/26/22 06/27/22 Metoprolol Tartrate [Lopressor] 25 mg PO BID 04/26/22 06/27/22 Nitroglycerin Sl Tabs [Nitrostat] 0.4 mg SUBLINGUAL Q5M PRN 04/26/22 06/27/22 Pantoprazole Sodium 40 mg PO BID 04/26/22 06/27/22 Ranolazine [Ranolazine ER] 500 mg PO BID 04/26/22 06/27/22 rOPINIRole HCL [Requip] 0.5 mg PO TID 04/26/22 06/27/22 Previous Rx's Medication Instructions Recorded Acetaminophen Tab [Tylenol] 650 mg PO Q4HR PRN tab 04/30/22 Albuterol Inhaler [Ventolin Hfa 2 puff INHALATION RT-QID 30 Days 04/30/22 Inhaler] #1 each Ascorbic Acid [Vitamin C] 1,000 mg PO DAILY #60 tab 04/30/22 Cholecalciferol [Vitamin D3 (125 125 mcg PO DAILY 30 Days #30 tab 04/30/22 Mcg = 5000 Iu)] Zinc Sulfate [Orazinc] 220 mg PO DAILY 14 Days #14 cap 04/30/22 Aspirin 81 mg PO DAILY #30 tab 05/14/22 Cyanocobalamin [Vitamin B-12] 1,000 mcg PO DAILY #30 tab 05/14/22 Folic Acid 1 mg PO DAILY #30 tab 05/14/22 Meclizine [Antivert] 12.5 mg PO TID #30 tab 05/14/22 Topiramate [Topamax] 50 mg PO BID #60 tab 05/14/22 Allergies Allergy/AdvReac Type Severity Reaction Status Date / Time codeine Allergy Swelling Verified 06/27/22 12:54 Review of Systems ROS Other: All systems not noted in ROS Statement are negative. <Raquel Crowley - Last Filed: 06/27/22 10:45> ROS Other: All systems not noted in ROS Statement are negative. <Martin Carr - Last Filed: 06/27/22 15:00> ROS Statement: Those systems with pertinent positive or pertinent negative responses have been documented in the HPI. Past Medical History Past Medical History: COPD, Hypertension, Myocardial Infarction ([place]) Additional Past Medical History / Comment(s): COVID April 2022 Last Myocardial Infarction Date:: 2020 History of Any Multi-Drug Resistant Organisms: None Reported Past Surgical History: Heart Catheterization With Stent Past Anesthesia/Blood Transfusion Reactions: No Reported Reaction Date of Last Stent Placement:: 2020 Past Psychological History: No Psychological Hx Reported Smoking Status: Former smoker Past Alcohol Use History: None Reported Past Drug Use History: None Reported <Raquel Crowley - Last Filed: 06/27/22 10:45> General Exam Limitations: no limitations <Raquel Crowley - Last Filed: 06/27/22 10:45> Course Vital Signs 06/27/22 06/27/22 06/27/22 09:43 12:53 14:46 Temperature 98.7 F Pulse Rate 78 70 84 Respiratory 22 18 18 Rate Blood Pressure 152/89 172/80 126/84 O2 Sat by Pulse 97 97 95 Oximetry Chest Pain [facility] <Martin Carr - Last Filed: 06/27/22 15:00> - [facility] EKG was interpreted by me. EKG shows sinus rhythm at 73 bpm IA interval 157 QRS 101 to 07/[birth year]1969 QTC is 45. Patient's EKG shows no ST segment elevation or depression Was pt. sent in by a medical professional or institution (, PA, JOINT FINISHER, urgent care, hospital, or [facility]...) When possible be specific @ -Some the history came from her primary medical care doctor where she was when EMS was contacted Did you speak to anyone other than the patient for history (EMS, parent, family, police, friend...)? What history was obtained from this source @ -EMS and family Did you review nursing and triage notes (agree or disagree)? Why? @ -I reviewed and agree with nursing and triage notes Were old charts reviewed (outside hosp., previous admission, EMS record, old EKG, old radiological studies, urgent care reports/EKG's, [facility] records)? Report findings @ -I reviewed previous x-rays previous EKGs previous lab work on this patient and compared to today's results Differential Diagnosis (chest pain, altered mental status, abdominal pain women, abdominal pain men, vaginal bleeding, weakness, fever, dyspnea, syncope, headache, dizziness, GI bleed, back pain, seizure, CVA, palpatations, mental health)? Differential Syncope: Valvular disease, hypertrophic cardiomyopathy, pulmonary embolism, tamponade, tachycardia, bradycardia, [place], hypovolemia, hemorrhage, dissection, anemia, intracranial hemorrhage, seizure, hypoglycemia, carbon monoxide poisoning, this is not meant to be an all-inclusive list. EKG interpreted by me (3pts min.). @ -As above X-rays interpreted by me (1pt min.). @ -I interpreted chest x-ray shows no acute abnormality. Radiology thought there was a little prominence of the right paratracheal stripe which will need to be followed up later CT interpreted by me (1pt min.). @ -None done U/S interpreted by me (1pt. min.). @ -None done What testing was considered but not performed or refused? (CT, X-rays, U/S, labs)? Why? @ -None What meds were considered but not given or refused? Why? @ -None Did you discuss the management of the patient with other professionals (professionals i.e. DrChad, PA, JOINT FINISHER, lab, RT, psych nurse, psychosocial rehabilitation counselor, business excellence leader, teacher, seaman officer, case work aide)? Give summary @ -I spoke with Dr. Saul to admit the patient admitted the patient wrote admitting orders. Was smoking cessation discussed for >3mins.? @ -No Was critical care preformed (if so, how long)? @ -No Were there social determinants of health that impacted care today? How? (Home lessness, low income, unemployed, alcoholism, drug addiction, transportation, low edu. Level, literacy, decrease access to med. care, group home, rehab)? @ -No Was there de-escalation of care discussed even if they declined (Discuss DNR or withdrawal of care, Hospice)? DNR status @ -No What co-morbidities impacted this encounter? (DM, HTN, Smoking, COPD, CAD, Cancer, CVA, ARF, Chemo, Hep., AIDS, mental health diagnosis, sleep apnea, morbid obesity)? @ -None Was patient admitted / discharged? Hospital course, mention meds given and route, prescriptions, significant lab abnormalities, going to OR and other pertinent info. @ -Patient came in complaining of a recent upper infection but also had chest pain he described as heavy went on his left arm and he made him short of breath. Patient states it happened twice today and twice yesterday. Undiagnosed new problem with uncertain prognosis? @ -No Drug Therapy requiring intensive monitoring for toxicity (Heparin, Nitro, Insulin, Cardizem)? @ -No Were any procedures done? @ -No Diagnosis/symptom? @ -Pain Acute, or Chronic, or Acute on Chronic? @ -Acute Uncomplicated (without systemic symptoms) or Complicated (systemic symptoms)? @ -Complicated Side effects of treatment? @ -No Exacerbation, Progression, or Severe Exacerbation? @ -No Poses a threat to life or bodily function? How? (Chest pain, [place], [place], pneumonia, PE, COPD, DKA, ARF, appy, cholecystitis, CVA, Diverticulitis, Homicidal, Suicidal, threat to staff... and all critical care pts) @ -No Diagnosis/symptom? @ -URI Acute, or Chronic, or Acute on Chronic? @ -Acute Uncomplicated (without systemic symptoms) or Complicated (systemic symptoms)? @ -Uncomplicated Side effects of treatment? @ -none Exacerbation, Progression, or Severe Exacerbation] @ -no Poses a threat to life or bodily function? @ -no (Martin Carr) Disposition <Raquel Crowley - Last Filed: 06/27/22 10:45> Time of Disposition: 14:58 <Martin Carr - Last Filed: 06/27/22 15:00> Clinical Impression: Chest pain, URI (upper respiratory infection) Disposition: ADMITTED IP TO THIS HOSP Referrals: Yara Wong MD [Primary Care Provider] - 1-2 days
--- NOTE | 2022-06-27 11:12 | XR ---
EXAMINATION TYPE: XR chest 2V DATE OF EXAM: 06/27/2022 COMPARISON: 05/12/2022 INDICATION: Difficulty breathing chest pain TECHNIQUE: Frontal and lateral views of the chest are obtained. FINDINGS: The heart size is normal. The pulmonary vasculature is normal. The lungs are clear. There is hyperinflation flattened diaphragms compatible COPD. Loop recorder is over the chest IMPRESSION: 1. No acute pulmonary process. 2. Correlate for COPD.
[2022-06-27 14:08] LABS: Basophils # (A) 0.1 k/uL (0-0.2); Basophils % (A) 1 %; Eosinophils # (A) 0.2 k/uL (0-0.7); Eosinophils % (A) 2 %; HCT 41.9 % (39.0-53.0); Lymphocytes # (A) 1.4 k/uL (1.0-4.8); Lymphocytes % (A) 18 %; MCH 32.2 pg (25.0-35.0); MCHC 35.9 g/dL (31.0-37.0); MCV 89.9 fL (80.0-100.0); Mean Platelet Volume 7.4; Monocytes # (A) 0.6 k/uL (0-1.0); Monocytes % (A) 8 %; Neutrophils # (A) 5.8 k/uL (1.3-7.7); Neutrophils % (A) 70 %; Platelet Count 248 k/uL (150-450); RBC 4.66 m/uL (4.30-5.90); RDW 12.9 % (11.5-15.5); WBC 8.3 k/uL (3.8-10.6)
[2022-06-27 14:23] LABS: ALT 36 U/L (4-49); AST 25 U/L (17-59); African American GFR (CKD) >90 (>60 ml/min/1.73 sqM); Albumin 4.2 g/dL (3.5-5.0); Alkaline Phosphatase 88 U/L (38-126); Anion Gap 4 mmol/L; Blood Urea Nitrogen 11 mg/dL (9-20); Calcium 9.1 mg/dL (8.4-10.2); Carbon Dioxide 31 mmol/L (22-30); Chloride 105 mmol/L (98-107); Glucose 92 mg/dL (74-99); Magnesium 1.7 mg/dL (1.6-2.3); Non-African American GFR(CKD) 86 (>60 ml/min/1.73 sqM); Potassium 4.9 mmol/L (3.5-5.1); Sodium 140 mmol/L (137-145); Total Protein 6.9 g/dL (6.3-8.2)
[2022-06-27 14:28] LABS: Partial Thromboplastin Time 24.3 sec (22.0-30.0); Prothrombin Time 10.5 sec (9.0-12.0)
[2022-06-27] MEDS ORDERED: NITROGLYCERIN SL TABS 0.4 MG TAB SUBLINGUAL PRN ×2 (14:58→20:00)
[2022-06-27] MEDS: NITROGLYCERIN OINT 1 INCH/GM PACKET TOPICAL SCH (16:45)
[2022-06-27] MEDS ORDERED: ACETAMINOPHEN TAB 325 MG TAB PO PRN (20:00)
[2022-06-27] MEDS: ALBUTEROL NEBULIZED 2.5 MG/3 ML INHALATION SCH (20:20)
[2022-06-27] MEDS: FLUoxetine HCL 20 MG CAP PO SCH (21:16)
[2022-06-27] MEDS: TOPIRAMATE 25 MG TAB PO SCH (21:16)
[2022-06-27] MEDS: RANOLAZINE 500 MG TAB.ER.12H PO SCH (21:16)
[2022-06-27] MEDS: ATORVASTATIN 80 MG TAB PO SCH (21:16)
[2022-06-27] MEDS: METOPROLOL TARTRATE 25 MG TAB PO SCH (21:16)
[2022-06-27] MEDS: PANTOPRAZOLE 40 MG TABLET PO SCH (21:16)
[2022-06-27] MEDS: MECLIZINE 12.5 MG TAB PO SCH (21:16)
[2022-06-28] MEDS: NITROGLYCERIN OINT 1 INCH/GM PACKET TOPICAL SCH (00:33)
--- NOTE | 2022-06-28 01:00 | P.HPIM ---
History of Present Illness H&P Date: 06/27/22 Chief Complaint: Chest pain Patient is a 62-year-old male with a known history of COPD, coronary artery with history of stent placement x2 most recent about a year ago, COVID-19 in April 2022, history of TIA, hypertension, hyperlipidemia, history of ID and prior history of smoking presents to ER with complaints of chest pain. Patient states that he has been having on and off left retrosternal chest pain. Today morning he started developing chest pain retrosternal with sharp pain when he was at rest associate with shortness of breath and nausea and sweating. Patient did take nitroglycerin which seemed to relieve his pain. Patient was placed on Nitropaste in the ER. Patient otherwise complains of dry cough. No complaints of abdominal pain or diarrhea. No dizziness or lightheadedness. No palpitations. No numbness or tingling sensation. Denies any fever or chills. Chest x-ray showed no acute cardiopulmonary process. Correlate for COPD. EKG showed sinus rhythm Laboratory data WBC 8.3, hemoglobin 15.0 and platelets 248 Sodium 140 potassium 4.9 chloride 105 bicarb is 31 BUN 11 and creatinine 0.94 and calcium 9.1 troponin x3 negative and influenza A, B and RSV and SARS-CoV-2 PCR not detected. Review of Systems Constitutional: Patient denies any fever or chills . no Generalized weakness. Abdomen: Patient denied any nausea or vomiting or abd. pain Cardiovascular: Patient did complain of chest pain associated shortness of breath and diaphoresis. No palpitations no neck swelling. Respiratory: patient complains of cough without sputum production. Did have shortness of breath Neurologic: Patient denied any numbness or tingling headache. Musculoskeletal: Patient denies any complaints of joint swelling or deformity. Skin: Negative Psychiatric: Negative Endocrine: No heat or cold intolerance. No recent weight gain. Genitourinary: No dysuria or hematuria. All other 14 point ROS negative except the above Past Medical History Past Medical History: Chest Pain / Angina, COPD, CVA/TIA, GERD/Reflux, Hyperlipidemia, Hypertension, Myocardial Infarction ([place]) Additional Past Medical History / Comment(s): COVID April 2022, multiple MIs, TIA, peripheral vision loss of left eye Last Myocardial Infarction Date:: 2020 History of Any Multi-Drug Resistant Organisms: None Reported Past Surgical History: Heart Catheterization With Stent Additional Past Surgical History / Comment(s): 2 cardiac stents Past Anesthesia/Blood Transfusion Reactions: No Reported Reaction Date of Last Stent Placement:: 2020 Past Psychological History: No Psychological Hx Reported Smoking Status: Former smoker Past Alcohol Use History: None Reported Past Drug Use History: None Reported Medications and Allergies Home Medications Medication Instructions Recorded Confirmed Type Atorvastatin Calcium [Lipitor] 80 mg PO HS 04/26/22 06/27/22 History FLUoxetine HCL [PROzac] 20 mg PO DAILY 04/26/22 06/27/22 History FLUoxetine HCL [PROzac] 40 mg PO DAILY 04/26/22 06/27/22 History Famotidine [Pepcid] 40 mg PO DAILY 04/26/22 06/27/22 History Isosorbide Mononitrate ER [Imdur] 90 mg PO DAILY 04/26/22 06/27/22 History Lansoprazole [Prevacid] 30 mg PO DAILY 04/26/22 06/27/22 History Metoprolol Tartrate [Lopressor] 25 mg PO BID 04/26/22 06/27/22 History Nitroglycerin Sl Tabs [Nitrostat] 0.4 mg SUBLINGUAL Q5M PRN 04/26/22 06/27/22 History Pantoprazole Sodium 40 mg PO BID 04/26/22 06/27/22 History Ranolazine [Ranolazine ER] 500 mg PO BID 04/26/22 06/27/22 History rOPINIRole HCL [Requip] 0.5 mg PO TID 04/26/22 06/27/22 History Acetaminophen Tab [Tylenol] 650 mg PO Q4HR PRN tab 04/30/22 06/27/22 Rx Albuterol Inhaler [Ventolin Hfa 2 puff INHALATION RT-QID 30 Days 04/30/22 06/27/22 Rx Inhaler] #1 each Ascorbic Acid [Vitamin C] 1,000 mg PO DAILY #60 tab 04/30/22 06/27/22 Rx Cholecalciferol [Vitamin D3 (125 125 mcg PO DAILY 30 Days #30 tab 04/30/22 06/27/22 Rx Mcg = 5000 Iu)] Zinc Sulfate [Orazinc] 220 mg PO DAILY 14 Days #14 cap 04/30/22 06/27/22 Rx Aspirin 81 mg PO DAILY #30 tab 05/14/22 06/27/22 Rx Cyanocobalamin [Vitamin B-12] 1,000 mcg PO DAILY #30 tab 05/14/22 06/27/22 Rx Folic Acid 1 mg PO DAILY #30 tab 05/14/22 06/27/22 Rx Meclizine [Antivert] 12.5 mg PO TID #30 tab 05/14/22 06/27/22 Rx Topiramate [Topamax] 50 mg PO BID #60 tab 05/14/22 06/27/22 Rx Allergies Allergy/AdvReac Type Severity Reaction Status Date / Time codeine Allergy Swelling Verified 06/27/22 12:54 Physical Exam Vitals: Vital Signs Temp Pulse Pulse Resp BP BP Pulse Ox 06/27/22 19:54 98 06/27/22 18:56 97.6 F 72 16 152/84 98 06/27/22 17:33 77 16 137/98 98 06/27/22 16:43 70 18 146/86 06/27/22 14:46 84 18 126/84 95 06/27/22 12:53 70 18 172/80 97 06/27/22 09:43 98.7 F 78 22 152/89 97 Intake and Output 06/27/22 06/27/22 06/27/22 06:59 14:59 22:59 Intake Total 240 Balance 240 Intake: Oral 240 Other: Weight 81.647 kg 81.647 kg PHYSICAL EXAMINATION: Patient is lying in the bed comfortably, no acute distress, awake alert and oriented.. HEENT: Normocephalic. Neck is supple. Pupils reactive. Nostrils clear. Oral cavity is moist. Neck reveals no JVD, carotid bruits, or thyromegaly. CHEST EXAMINATION: Trachea is central. Symmetrical expansion. Bibasilar diminished sounds and prolonged expiration. CARDIAC: Normal S1, S2 with no gallops. No murmurs ABDOMEN: Soft. Bowel sounds present. Nontender. No organomegaly. No abdominal bruits. Extremities: reveal no edema. No clubbing or cyanosis Neurologically awake, alert, oriented x3 with well-coordinated movements. No focal deficits noted Skin: No rash or skin lesions. Psychiatric: Coperative. Nonsuicidal, Musculoskeletal: No joint swelling or deformity. Normal range of motion. Results CBC & Chem 7: 06/27/22 13:45 06/27/22 13:45 Labs: Abnormal Lab Results - Last 24 Hours (Table) 06/27/22 Range/Units 13:45 Carbon Dioxide 31 H (22-30) mmol/L Thrombosis Risk Factor Assmnt - DVT/VTE Prophylaxis DVT/VTE Prophylaxis: Pharmacologic Prophylaxis ordered - Choose All That Apply Each Factor Represents 1 point: Abnormal pulmonary function (COPD), Obesity (BMI >25) Each Risk Factor Represents 2 Points: Age 61-74 years Thrombosis Risk Factor Assessment Total Risk Factor Score: 4 Thrombosis Risk Factor Assessment Level: Moderate Risk Assessment and Plan Assessment: Chest pain. Rule out ACS. History of coronary artery disease status post stent placement x2 most recent about a year ago History of COVID-19 in April 2022 Hypertension Hyperkalemia History of ID COPD Prior history of smoking DVT prophylaxis Heparin subcu Plan: Patient admitted on telemetry monitoring. Serial EKG and troponin x3. Patient was given nitroglycerin and Nitropaste. Continued home medication including aspirin and Ranexa and metoprolol. Patient is also on Imdur. Cardiology was consulted for evaluation. Continue to follow closely. Breathing treatments as needed. Time with Patient: Greater than 30
[2022-06-28] MEDS: ALBUTEROL NEBULIZED 2.5 MG/3 ML INHALATION SCH ×4 (08:02→20:11)
[2022-06-28] MEDS ORDERED: ALPRAZolam 0.25 MG TAB PO PRN (08:27)
[2022-06-28] MEDS ORDERED: NITROGLYCERIN SL TABS 0.4 MG TAB SUBLINGUAL PRN (08:27)
[2022-06-28] MEDS ORDERED: ALPRAZolam 0.5 MG TAB PO PRN (08:27)
[2022-06-28] MEDS ORDERED: ASPIRIN 81 MG PO SCH (09:00)
[2022-06-28] MEDS ORDERED: NON FORMULARY DRUG (Lansoprazole [Prevacid] 30 MG Capsule.Dr) PO SCH (09:00)
[2022-06-28] MEDS: METOPROLOL TARTRATE 25 MG TAB PO SCH ×2 (10:00→21:04)
[2022-06-28] MEDS: ASCORBIC ACID 500 MG TAB PO SCH (10:00)
[2022-06-28] MEDS: CYANOCOBALAMIN 500 MCG TAB PO SCH (10:00)
[2022-06-28] MEDS: FAMOTIDINE 20 MG TAB PO SCH (10:00)
[2022-06-28] MEDS: ISOSORBIDE MONONITRATE ER 30 MG TAB.ER.24H PO SCH (10:00)
[2022-06-28] MEDS: PANTOPRAZOLE 40 MG TABLET PO SCH ×2 (10:00→21:04)
[2022-06-28] MEDS: FOLIC ACID 1 MG TAB PO SCH (10:01)
[2022-06-28] MEDS: FLUoxetine HCL 20 MG CAP PO SCH (10:06)
[2022-06-28] MEDS: CHOLECALCIFEROL 125 MCG (5000 IU) TABLET PO SCH (10:06)
[2022-06-28] MEDS: TOPIRAMATE 25 MG TAB PO SCH ×2 (10:06→21:03)
[2022-06-28] MEDS: HEPARIN SODIUM,PORCINE/PF 5,000 UNIT/0.5 ML SYRINGE SQ SCH ×3 (10:07→21:04)
[2022-06-28] MEDS: RANOLAZINE 500 MG TAB.ER.12H PO SCH ×2 (10:07→21:03)
[2022-06-28] MEDS: MECLIZINE 12.5 MG TAB PO SCH ×3 (10:16→21:03)
[2022-06-28] MEDS: ASPIRIN 325 MG TAB PO SCH (10:16)
[2022-06-28 11:42] LABS: Chol/HDL Ratio 5.17 Ratio
--- NOTE | 2022-06-28 15:08 | P.CRDCN ---
History of Present Illness Consult date: 06/28/22 Consult reason: chest pain History of present illness: This is Anurag Underwood NP, I'm dictating on behalf of Dr. Vegas's H&P and A&P The patient was interviewed and examined. HPI: Patient is a pleasant 62-year-old male who initially came the hospital with complaints of chest pain. Patient reports that he's been having chest pain the last few days. Ports radiating down his left arm. He states he's been taking nitro capsules at least a couple times a day for the last couple of days, with some relief. He reports however yesterday he took a nitro capsules and had no relief at all. This is what prompted him to come to the hospital for evaluation. Patient had an EKG completed that showed sinus rhythm with no ST segment elevation or depression. Troponins were completed and have been negative. Patient reports that he had a stent placed approximately one year ago. At the time of this interview, the patient reports that he is still experiencing some mild chest pain at times. He continues to demonstrate normal sinus rhythm on telemetry. Troponins have remained negative 3. Patient does have elevated triglycerides and low HDL cholesterol. Patient also reports that he currently has a monitor on. ROS: [No fever, chills, or rigors] [no cough, phlegm, or expectoration] [no nausea, vomiting, or diarrhea] [no hematuria, dysuria] [no musculoskelatal complaints] [no strokes or seizures] [no skin lesions] EXAMINATION: GENERAL: Well-appearing, well-nourished and in no acute distress. NECK: Supple without JVD or thyromegaly. LUNGS: Breath sounds clear to auscultation bilaterally. Respiration equal and unlabored. No wheezes, rales or rhonchi. HEART: Regular rate and rhythm without murmurs, rubs or gallops. S1 and S2 h eard. EXTREMITIES: Normal range of motion, no edema. No clubbing or cyanosis. Peripheral pulses intact and strong. REVIEW OF LABS, ECG & MEDICAL DATA: LABS: White count 8.3, hemoglobin 15, platelets 248, sodium 140, potassium 4.9, B1 11, creatinine 0.94, calcium 9.1, magnesium 1.7, troponin 3-less than 0.012, less than 0.012, less than 0.012; triglycerides 190, cholesterol 150, LDL 83, HDL 29 EKG: Normal sinus rhythm IMAGING: Chest x-ray dated 06/27/2022 demonstrates no acute pulmonary process, correlate for COPD. VITALS: Temp 97.8, pulse 61, respirations 18, blood pressure 108/63, O2 sa turation 95% on room air IMPRESSION: 1. Chest pain with history of coronary artery disease 2. COPD 3. Hypercholesterolemia PLAN: Schedule patient for heart catheterization on Thursday with Dr. Fonseca. Please attempt to obtain records from the office for the patient's event monitor. Continue aspirin, heparin, Imdur, and metoprolol. Further recommendations based on the patient's clinical course. Thank you for the consult and allowing us to participate in the care of this patient. Past Medical History Past Medical History: Chest Pain / Angina, COPD, CVA/TIA, GERD/Reflux, Hyperlipidemia, Hypertension, Myocardial Infarction ([place]) Additional Past Medical History / Comment(s): COVID April 2022, multiple MIs, TIA, peripheral vision loss of left eye Last Myocardial Infarction Date:: 2020 History of Any Multi-Drug Resistant Organisms: None Reported Past Surgical History: Heart Catheterization With Stent Additional Past Surgical History / Comment(s): 2 cardiac stents Past Anesthesia/Blood Transfusion Reactions: No Reported Reaction Date of Last Stent Placement:: 2020 Past Psychological History: No Psychological Hx Reported Smoking Status: Former smoker Past Alcohol Use History: None Reported Past Drug Use History: None Reported Medications and Allergies Home Medications Medication Instructions Recorded Confirmed Type Atorvastatin Calcium [Lipitor] 80 mg PO HS 04/26/22 06/27/22 History FLUoxetine HCL [PROzac] 20 mg PO DAILY 04/26/22 06/27/22 History FLUoxetine HCL [PROzac] 40 mg PO DAILY 04/26/22 06/27/22 History Famotidine [Pepcid] 40 mg PO DAILY 04/26/22 06/27/22 History Isosorbide Mononitrate ER [Imdur] 90 mg PO DAILY 04/26/22 06/27/22 History Lansoprazole [Prevacid] 30 mg PO DAILY 04/26/22 06/27/22 History Metoprolol Tartrate [Lopressor] 25 mg PO BID 04/26/22 06/27/22 History Nitroglycerin Sl Tabs [Nitrostat] 0.4 mg SUBLINGUAL Q5M PRN 04/26/22 06/27/22 History Pantoprazole Sodium 40 mg PO BID 04/26/22 06/27/22 History Ranolazine [Ranolazine ER] 500 mg PO BID 04/26/22 06/27/22 History rOPINIRole HCL [Requip] 0.5 mg PO TID 04/26/22 06/27/22 History Acetaminophen Tab [Tylenol] 650 mg PO Q4HR PRN tab 04/30/22 06/27/22 Rx Albuterol Inhaler [Ventolin Hfa 2 puff INHALATION RT-QID 30 Days 04/30/22 06/27/22 Rx Inhaler] #1 each Ascorbic Acid [Vitamin C] 1,000 mg PO DAILY #60 tab 04/30/22 06/27/22 Rx Cholecalciferol [Vitamin D3 (125 125 mcg PO DAILY 30 Days #30 tab 04/30/22 06/27/22 Rx Mcg = 5000 Iu)] Zinc Sulfate [Orazinc] 220 mg PO DAILY 14 Days #14 cap 04/30/22 06/27/22 Rx Aspirin 81 mg PO DAILY #30 tab 05/14/22 06/27/22 Rx Cyanocobalamin [Vitamin B-12] 1,000 mcg PO DAILY #30 tab 05/14/22 06/27/22 Rx Folic Acid 1 mg PO DAILY #30 tab 05/14/22 06/27/22 Rx Meclizine [Antivert] 12.5 mg PO TID #30 tab 05/14/22 06/27/22 Rx Topiramate [Topamax] 50 mg PO BID #60 tab 05/14/22 06/27/22 Rx Allergies Allergy/AdvReac Type Severity Reaction Status Date / Time codeine Allergy Swelling Verified 06/27/22 12:54 Physical Exam Vitals: Vital Signs Temp Pulse Pulse Resp BP BP Pulse Ox 06/28/22 14:00 18 06/28/22 11:42 68 06/28/22 11:30 68 06/28/22 10:06 18 06/28/22 08:16 68 06/28/22 08:02 68 95 06/28/22 07:00 97.8 F 61 18 108/63 95 06/28/22 02:25 98.2 F 66 17 106/97 96 06/27/22 20:00 16 06/27/22 19:54 98 06/27/22 18:56 97.6 F 72 16 152/84 98 06/27/22 17:33 77 16 137/98 98 06/27/22 16:43 70 18 146/86 FiO2 06/28/22 14:00 06/28/22 11:42 06/28/22 11:30 06/28/22 10:06 06/28/22 08:16 06/28/22 08:02 21 06/28/22 07:00 06/28/22 02:25 06/27/22 20:00 06/27/22 19:54 06/27/22 18:56 06/27/22 17:33 06/27/22 16:43 Intake and Output 06/27/22 06/28/22 06/28/22 22:59 06:59 14:59 Intake Total 240 0 240 Balance 240 0 240 Intake: Oral 240 0 240 Other: Voiding Method Toilet Toilet # Voids 1 2 1 Weight 81.647 kg Results 06/27/22 13:45 06/27/22 13:45 Cardiac Enzymes 06/27/22 06/27/22 06/27/22 Range/Units 13:45 16:40 20:04 Troponin I <0.012 <0.012 <0.012 (0.000-0.034) ng/mL Lipids 06/27/22 Range/Units 07:14 Triglycerides 190.00 H (0.00-149.00) mg/dL Cholesterol 150.00 (0.00-200.00) mg/dL HDL Cholesterol 29.00 L (40.00-60.00) mg/dL Cholesterol/HDL Ratio 5.17 Ratio Current Medications Generic Name Dose Route Start Last Admin Trade Name Freq PRN Reason Stop Dose Admin Acetaminophen 650 mg 06/27/22 20:00 Acetaminophen Tab 325 Mg Tab PO Q4HR PRN Mild Pain or Fever > 100.5 Albuterol Sulfate 2.5 mg 06/27/22 20:00 06/28/22 11:30 Albuterol Nebulized 2.5 Mg/3 Ml INHALATION 2.5 mg RT-QID MAIKEL Administration Alprazolam 0.25 mg 06/28/22 08:27 Alprazolam 0.25 Mg Tab PO Q6HR PRN Mild Anxiety Alprazolam 0.5 mg 06/28/22 08:27 Alprazolam 0.5 Mg Tab PO Q6HR PRN Moderate Anxiety Ascorbic Acid 1,000 mg 06/28/22 09:00 06/28/22 10:00 Ascorbic Acid 500 Mg Tab PO 1,000 mg DAILY MAIKEL Administration Aspirin 325 mg 06/28/22 09:00 06/28/22 10:16 Aspirin 325 Mg Tab PO 325 mg DAILY MAIKEL Administration Aspirin 325 mg 06/30/22 06:00 Aspirin 325 Mg Tab PO 06/30/22 06:01 ONCE ONE Atorvastatin Calcium 80 mg 06/27/22 21:00 06/27/22 21:16 Atorvastatin 80 Mg Tab PO 80 mg HS MAIKEL Administration Atorvastatin Calcium 80 mg 06/30/22 06:00 Atorvastatin 80 Mg Tab PO 06/30/22 06:01 ONCE ONE Cholecalciferol 125 mcg 06/28/22 09:00 06/28/22 10:06 Cholecalciferol 125 Mcg (5000 Iu) Tablet PO 125 mcg DAILY MAIKEL Administration Cyanocobalamin 1,000 mcg 06/28/22 09:00 06/28/22 10:00 Cyanocobalamin 500 Mcg Tab PO 1,000 mcg DAILY MAIKEL Administration Famotidine 40 mg 06/28/22 09:00 06/28/22 10:00 Famotidine 20 Mg Tab PO 40 mg DAILY MAIKEL Administration Fluoxetine HCl 40 mg 06/27/22 20:00 06/28/22 10:06 Fluoxetine Hcl 20 Mg Cap PO 40 mg DAILY MAIKEL Administration Folic Acid 1 mg 06/28/22 09:00 06/28/22 10:01 Folic Acid 1 Mg Tab PO 1 mg DAILY MAIKEL Administration Heparin Sodium (Porcine) 5,000 unit 06/28/22 08:00 06/28/22 10:07 Heparin Sodium,Porcine/Pf 5,000 Unit/0.5 Ml Syringe SQ 5,000 unit Q8HR MAIKEL Administration Heparin Sodium (Porcine) 10, 1,001 mls @ 999 mls/hr 06/29/22 07:00 000 unit/ Sodium Chloride IRRIGATION 06/29/22 23:00 ONCE PRN INTRA-OP Heparin Sodium (Porcine) 2,500 250.5 mls @ 250 mls/hr 06/29/22 07:00 unit/ Sodium Chloride IRRIGATION 06/29/22 23:00 ONCE PRN INTRA-OP Isosorbide Mononitrate 90 mg 06/28/22 09:00 06/28/22 10:00 Isosorbide Mononitrate Er 30 Mg Tab.Er.24h PO 90 mg DAILY MAIKEL Administration Meclizine HCl 12.5 mg 06/27/22 22:00 06/28/22 10:16 Meclizine 12.5 Mg Tab PO 12.5 mg TID MAIKEL Administration Metoprolol Tartrate 25 mg 06/27/22 21:00 06/28/22 10:00 Metoprolol Tartrate 25 Mg Tab PO 25 mg BID MAIKEL Administration Nitroglycerin 0.4 mg 06/27/22 14:58 06/27/22 16:45 Nitroglycerin Sl Tabs 0.4 Mg Tab SUBLINGUAL 0.4 mg Q5M PRN Administration Chest Pain Pantoprazole Sodium 40 mg 06/27/22 21:00 06/28/22 10:00 Pantoprazole 40 Mg Tablet PO 40 mg BID MAIKEL Administration Ranolazine 500 mg 06/27/22 21:00 06/28/22 10:07 Ranolazine 500 Mg Tab.Er.12h PO 500 mg BID MAIKEL Administration Ropinirole HCl 0.5 mg 06/27/22 22:00 06/28/22 10:15 Ropinirole Hcl 0.25 Mg Tab PO 0.5 mg TID MAIKEL Administration Topiramate 50 mg 06/27/22 21:00 06/28/22 10:06 Topiramate 25 Mg Tab PO 50 mg BID MAIKEL Administration Intake and Output 06/27/22 06/28/22 06/28/22 22:59 06:59 14:59 Intake Total 240 0 240 Balance 240 0 240 Intake: Oral 240 0 240 Other: Voiding Method Toilet Toilet # Voids 1 2 1 Weight 81.647 kg 06/27/22 13:45 06/27/22 13:45
[2022-06-28] MEDS: ATORVASTATIN 80 MG TAB PO SCH (21:03)
[2022-06-29] MEDS ORDERED: HEPARIN SODIUM,PORCINE 10,000 UNIT in SODIUM CHLORIDE 0.9% 1,000 ML IRRIGATION PRN (07:00)
[2022-06-29] MEDS ORDERED: HEPARIN SODIUM,PORCINE 2,500 UNIT in SODIUM CHLORIDE 0.9% 250 ML IRRIGATION PRN (07:00)
[2022-06-29] MEDS: ALBUTEROL NEBULIZED 2.5 MG/3 ML INHALATION SCH ×4 (08:15→21:04)
[2022-06-29] MEDS: ISOSORBIDE MONONITRATE ER 30 MG TAB.ER.24H PO SCH (09:10)
[2022-06-29] MEDS: ASCORBIC ACID 500 MG TAB PO SCH (09:10)
[2022-06-29] MEDS: TOPIRAMATE 25 MG TAB PO SCH ×2 (09:10→21:16)
[2022-06-29] MEDS: CYANOCOBALAMIN 500 MCG TAB PO SCH (09:10)
[2022-06-29] MEDS: CHOLECALCIFEROL 125 MCG (5000 IU) TABLET PO SCH (09:10)
[2022-06-29] MEDS: RANOLAZINE 500 MG TAB.ER.12H PO SCH ×2 (09:10→21:16)
[2022-06-29] MEDS: FOLIC ACID 1 MG TAB PO SCH (09:10)
[2022-06-29] MEDS: FLUoxetine HCL 20 MG CAP PO SCH (09:10)
[2022-06-29] MEDS: ASPIRIN 325 MG TAB PO SCH (09:11)
[2022-06-29] MEDS: FAMOTIDINE 20 MG TAB PO SCH (09:11)
[2022-06-29] MEDS: PANTOPRAZOLE 40 MG TABLET PO SCH ×2 (09:11→21:15)
[2022-06-29] MEDS: METOPROLOL TARTRATE 25 MG TAB PO SCH ×2 (09:11→21:15)
[2022-06-29] MEDS: HEPARIN SODIUM,PORCINE/PF 5,000 UNIT/0.5 ML SYRINGE SQ SCH ×3 (09:11→21:16)
[2022-06-29] MEDS: MECLIZINE 12.5 MG TAB PO SCH ×3 (09:38→21:16)
--- NOTE | 2022-06-29 13:22 | P.PN ---
Subjective Progress Note Date: 06/29/22 This is Anurag Underwood NP, I'm dictating on behalf of Dr. Vegas's H&P and A&P. Patient was interviewed and examined. Patient is a pleasant 62-year-old male who initially presented to the hospital complaints of chest pain. Patient reports that his chest pain has continued, however much more mild than what brought him into the hospital. He states he continues on the left side, especially between nitro. He otherwise denies shortness of breath or palpitations at this time. GENERAL: Well-appearing, well-nourished and in no acute distress. NECK: Supple without JVD or thyromegaly. LUNGS: Breath sounds and expiratory wheezing to auscultation bilaterally. Respiration equal and unlabored. No rales or rhonchi. HEART: Regular rate and rhythm without murmurs, rubs or gallops. S1 and S2 heard. EXTREMITIES: Normal range of motion, no edema. No clubbing or cyanosis. Peripheral pulses intact and strong. VITALS: Temp 97.7, pulse 76, respirations 18, blood pressure 115/75, O2 saturation 93% on room air TELEMETRY: Normal sinus rhythm LABS: No new labs today IMPRESSION: 1. Chest pain with history of coronary artery disease 2. COPD 3. Hypercholesterolemia PLAN: Patient is scheduled for heart cath tomorrow morning with Dr. Fonseca. Continue aspirin, heparin, Imdur, and metoprolol. Further recommendations based on patient's clinical course. Objective - Vital Signs Vital signs: Vital Signs Temp 97.7 F 06/29/22 07:00 Pulse 72 06/29/22 11:41 Resp 18 06/29/22 07:00 BP 115/75 06/29/22 07:00 Pulse Ox 93 L 06/29/22 07:00 FiO2 21 06/28/22 08:02 Intake & Output 06/28/22 06/29/22 06/29/22 18:59 06:59 18:59 Intake Total 240 240 Balance 240 240 Intake: Oral 240 240 Other: Voiding Method Toilet Toilet # Voids 2 2 1 - Labs CBC & Chem 7: 06/27/22 13:45 06/27/22 13:45
[2022-06-29] MEDS: ATORVASTATIN 80 MG TAB PO SCH (21:15)
--- NOTE | 2022-06-30 02:25 | P.PN ---
Subjective Progress Note Date: 06/28/22 Patient is a 62-year-old male with a known history of COPD, coronary artery with history of stent placement x2 most recent about a year ago, COVID-19 in April 2022, history of TIA, hypertension, hyperlipidemia, history of [place] and prior history of smoking presents to ER with complaints of chest pain. Patient states that he has been having on and off left retrosternal chest pain. Today morning he started developing chest pain retrosternal with sharp pain when he was at rest associate with shortness of breath and nausea and sweating. Patient did take nitroglycerin which seemed to relieve his pain. Patient was placed on Nitropaste in the ER. Patient otherwise complains of dry cough. No complaints of abdominal pain or diarrhea. No dizziness or lightheadedness. No palpitations. No numbness or tingling sensation. Denies any fever or chills. Chest x-ray showed no acute cardiopulmonary process. Correlate for COPD. EKG showed sinus rhythm Laboratory data WBC 8.3, hemoglobin 15.0 and platelets 248 Sodium 140 potassium 4.9 chloride 105 bicarb is 31 BUN 11 and creatinine 0.94 and calcium 9.1 troponin x3 negative and influenza A, B and RSV and SARS-CoV-2 PCR not detected. 06/28/2022 Patient is currently lying in bed. Awake alert and oriented x3 Patient still complaining of intermittent chest pain lasting for few minutes. Troponin x3 negative. No complaints of nausea or vomiting abdominal pain or diarrhea. No complaints of dizziness or lightheadedness. No fever no chills. No cough or sputum production. Cardiology is planning for cath on Thursday. Current medications reviewed. Objective - Vital Signs Vital signs: Vital Signs Temp 97.9 F 06/28/22 15:00 Pulse 72 06/28/22 20:34 Resp 18 06/28/22 15:00 BP 96/54 06/28/22 15:00 Pulse Ox 94 L 06/28/22 15:00 FiO2 21 06/28/22 08:02 Intake & Output 06/28/22 06/28/22 06/29/22 06:59 18:59 06:59 Intake Total 0 240 Balance 0 240 Weight 81.647 kg Intake: Oral 0 240 Other: Voiding Method Toilet Toilet # Voids 2 2 - Exam PHYSICAL EXAMINATION: Patient is lying in the bed comfortably, no acute distress, awake alert and oriented.. HEENT: Normocephalic. Neck is supple. Pupils reactive. Nostrils clear. Oral cavity is moist. Neck reveals no JVD, carotid bruits, or thyromegaly. CHEST EXAMINATION: Trachea is central. Symmetrical expansion. Bibasilar diminished sounds and prolonged expiration. CARDIAC: Normal S1, S2 with no gallops. No murmurs ABDOMEN: Soft. Bowel sounds present. Nontender. No organomegaly. No abdominal bruits. Extremities: reveal no edema. No clubbing or cyanosis Neurologically awake, alert, oriented x3 with well-coordinated movements. No focal deficits noted Skin: No rash or skin lesions. Psychiatric: Coperative. Nonsuicidal, Musculoskeletal: No joint swelling or deformity. Normal range of motion. - Labs CBC & Chem 7: 06/27/22 13:45 06/27/22 13:45 Labs: Abnormal Lab Results - Last 24 Hours (Table) 06/27/22 Range/Units 07:14 Triglycerides 190.00 H (0.00-149.00) mg/dL HDL Cholesterol 29.00 L (40.00-60.00) mg/dL Assessment and Plan Assessment: Chest pain. Ruled out ACS. History of coronary artery disease status post stent placement x2 most recent about a year ago History of COVID-19 in April 2022 Hypertension Hyperkalemia History of [place] COPD Prior history of smoking DVT prophylaxis Heparin subcu Plan: Patient admitted on telemetry monitoring. Serial EKG and troponin x3. Patient was given nitroglycerin and Nitropaste. Patient is still experiencing intermittent chest pains. Continued home medication including aspirin and Ranexa and metoprolol. Patient is also on Imdur. Cardiology is planning for catheterization on Thursday Continue to follow closely. Breathing treatments as needed. Time with Patient: Greater than 30
--- NOTE | 2022-06-30 02:26 | P.PN ---
Subjective Progress Note Date: 06/29/22 Patient is a 62-year-old male with a known history of COPD, coronary artery with history of stent placement x2 most recent about a year ago, COVID-19 in April 2022, history of TIA, hypertension, hyperlipidemia, history of [place] and prior history of smoking presents to ER with complaints of chest pain. Patient states that he has been having on and off left retrosternal chest pain. Today morning he started developing chest pain retrosternal with sharp pain when he was at rest associate with shortness of breath and nausea and sweating. Patient did take nitroglycerin which seemed to relieve his pain. Patient was placed on Nitropaste in the ER. Patient otherwise complains of dry cough. No complaints of abdominal pain or diarrhea. No dizziness or lightheadedness. No palpitations. No numbness or tingling sensation. Denies any fever or chills. Chest x-ray showed no acute cardiopulmonary process. Correlate for COPD. EKG showed sinus rhythm Laboratory data WBC 8.3, hemoglobin 15.0 and platelets 248 Sodium 140 potassium 4.9 chloride 105 bicarb is 31 BUN 11 and creatinine 0.94 and calcium 9.1 troponin x3 negative and influenza A, B and RSV and SARS-CoV-2 PCR not detected. 06/28/2022 Patient is currently lying in bed. Awake alert and oriented x3 Patient still complaining of intermittent chest pain lasting for few minutes. Troponin x3 negative. No complaints of nausea or vomiting abdominal pain or diarrhea. No complaints of dizziness or lightheadedness. No fever no chills. No cough or sputum production. Cardiology is planning for cath on Thursday. 06/29/2022 Patient states that he did have chest pain again this morning. Currently no complaints of chest pain. On room air. No nausea vomiting abdominal pain or diarrhea. No shortness of breath. No cough or sputum production. No palpitations. Plan for cardiac catheterization on Thursday. Cardiology is on board. Current medications reviewed. Objective - Vital Signs Vital signs: Vital Signs Temp 97.8 F 06/29/22 19:19 Pulse 72 06/29/22 21:24 Resp 16 06/29/22 19:19 BP 102/58 06/29/22 19:19 Pulse Ox 94 L 06/29/22 19:19 FiO2 21 06/28/22 08:02 Intake & Output 06/29/22 06/29/22 06/30/22 06:59 18:59 06:59 Intake Total 600 Balance 600 Intake: Oral 600 Other: Voiding Method Toilet # Voids 2 1 - Exam PHYSICAL EXAMINATION: Patient is lying in the bed comfortably, no acute distress, awake alert and oriented.. HEENT: Normocephalic. Neck is supple. Pupils reactive. Nostrils clear. Oral cavity is moist. Neck reveals no JVD, carotid bruits, or thyromegaly. CHEST EXAMINATION: Trachea is central. Symmetrical expansion. Bibasilar diminished sounds and prolonged expiration. CARDIAC: Normal S1, S2 with no gallops. No murmurs ABDOMEN: Soft. Bowel sounds present. Nontender. No organomegaly. No abdominal bruits. Extremities: reveal no edema. No clubbing or cyanosis Neurologically awake, alert, oriented x3 with well-coordinated movements. No focal deficits noted Skin: No rash or skin lesions. Psychiatric: Coperative. Nonsuicidal, Musculoskeletal: No joint swelling or deformity. Normal range of motion. - Labs CBC & Chem 7: 06/27/22 13:45 06/27/22 13:45 Assessment and Plan Assessment: Chest pain. Ruled out ACS. History of coronary artery disease status post stent placement x2 most recent about a year ago History of COVID-19 in April 2022 Hypertension Hyperkalemia History of [place] COPD Prior history of smoking DVT prophylaxis Heparin subcu Plan: Patient admitted on telemetry monitoring. Serial EKG and troponin x3. Patient was given nitroglycerin and Nitropaste. Patient is still experiencing intermittent chest pains. Continued home medication including aspirin and Ranexa and metoprolol. Patient is also on Imdur. Cardiology is planning for catheterization on Thursday Continue to follow closely. Breathing treatments as needed.
[2022-06-30 03:07] VITALS: TEMP 97.4
[2022-06-30] MEDS ORDERED: ATORVASTATIN 80 MG TAB PO ONE (06:00)
[2022-06-30] MEDS ORDERED: ASPIRIN 325 MG TAB PO ONE (06:00)
[2022-06-30] MEDS: ALBUTEROL NEBULIZED 2.5 MG/3 ML INHALATION SCH ×3 (06:56→14:58)
[2022-06-30] MEDS: ASPIRIN 325 MG TAB PO SCH (07:24)
[2022-06-30] MEDS: RANOLAZINE 500 MG TAB.ER.12H PO SCH (08:29)
[2022-06-30] MEDS: TOPIRAMATE 25 MG TAB PO SCH (08:29)
[2022-06-30] MEDS: ASCORBIC ACID 500 MG TAB PO SCH (08:29)
[2022-06-30] MEDS: PANTOPRAZOLE 40 MG TABLET PO SCH (08:29)
[2022-06-30] MEDS: HEPARIN SODIUM,PORCINE/PF 5,000 UNIT/0.5 ML SYRINGE SQ SCH ×2 (08:29→16:24)
[2022-06-30] MEDS: ISOSORBIDE MONONITRATE ER 30 MG TAB.ER.24H PO SCH (08:29)
[2022-06-30] MEDS: CYANOCOBALAMIN 500 MCG TAB PO SCH (08:30)
[2022-06-30] MEDS: METOPROLOL TARTRATE 25 MG TAB PO SCH (08:30)
[2022-06-30] MEDS: FAMOTIDINE 20 MG TAB PO SCH (08:30)
[2022-06-30] MEDS: MECLIZINE 12.5 MG TAB PO SCH ×2 (08:30→16:40)
[2022-06-30] MEDS: CHOLECALCIFEROL 125 MCG (5000 IU) TABLET PO SCH (08:30)
[2022-06-30] MEDS: FLUoxetine HCL 20 MG CAP PO SCH (08:30)
[2022-06-30] MEDS: FOLIC ACID 1 MG TAB PO SCH (08:39)
[2022-06-30 08:44] LABS: Basophils # (A) 0.05 X 10*3/uL (0.00-0.10); Basophils % (A) 0.7 %; Eosinophils # (A) 0.21 X 10*3/uL (0.04-0.35); Eosinophils % (A) 3.1 %; HCT 41.4 % (39.6-50.0); HGB 13.8 g/dL (13.0-17.0); Immature Grans, Automated 0.4 %; Lymphocytes # (A) 1.63 X 10*3/uL (0.90-5.00); Lymphocytes % (A) 23.9 %; MCH 31.2 pg (27.0-32.0); MCHC 33.3 g/dL (32.0-37.0); MCV 93.5 fL (80.0-97.0); Mean Platelet Volume 9.8 fL (9.5-12.2); Monocytes # (A) 0.82 X 10*3/uL (0.20-1.00); NRBC Per 100 WBC 0 /100 WBCS (0.0-0.0); Neutrophils # (A) 4.07 X 10*3/uL (1.80-7.70); Neutrophils % (A) 59.9 %; Platelet Count 229 X 10*3/uL (140-440); RBC 4.43 X 10*6/uL (4.40-5.60); RDW 12.9 % (11.5-14.5); WBC 6.81 X 10*3/uL (4.50-10.00)
[2022-06-30] MEDS ORDERED: SODIUM CHLORIDE 0.9% 1,000 ML IV SCH (09:00)
[2022-06-30 09:07] LABS: African American GFR (CKD) 82.4 (60.0-200.0); Anion Gap 6.5 mmol/L (10.00-18.00); BUN/Creat Ratio 10.64 Ratio (12.00-20.00); Blood Urea Nitrogen 11.7 mg/dL (9.0-27.0); Calcium 9.1 mg/dL (8.7-10.3); Carbon Dioxide 27.5 mmol/L (20.0-27.5); Non-African American GFR(CKD) 71.1 (60.0-200.0); Potassium 4.6 mmol/L (3.5-5.5)
--- NOTE | 2022-06-30 10:12 | P.PN ---
Subjective Progress Note Date: 06/30/22 Patient was interviewed and examined. Patient is a pleasant 62-year-old male who initially presented to the hospital complaints of chest pain. Patient continued to have chest pain initially especially between nitroglycerin and was scheduled for cardiac catheterization today with Dr. Fonseca. At this time, patient states he does not have any chest pain. GENERAL: Well-appearing, well-nourished and in no acute distress. NECK: Supple without JVD or thyromegaly. LUNGS: Breath sounds and expiratory wheezing to auscultation bilaterally. Respiration equal and unlabored. No rales or rhonchi. HEART: Regular rate and rhythm without murmurs, rubs or gallops. S1 and S2 heard. EXTREMITIES: Normal range of motion, no edema. No clubbing or cyanosis. Peripheral pulses intact and strong. VITALS: Temp 97.4, pulse 70, respirations 18, blood pressure 143/81, O2 saturation 96% on room air TELEMETRY: Normal sinus rhythm LABS: CBC unremarkable with hemoglobin 13.8. Potassium 4.6, BUN 11 creatinine 1.1. Blood sugar 120. IMPRESSION: 1. Chest pain with history of coronary artery disease 2. COPD 3. Hypercholesterolemia PLAN: Patient is scheduled for heart cath today with Dr. Fonseca. Continue aspirin, heparin, Imdur, and metoprolol. Further recommendations based on patient's clinical course. Nurse practitioner note has been reviewed, I agree with the documented findings and plan of care. Patient was seen and examined. Objective - Vital Signs Vital signs: Vital Signs Temp 97.4 F L 06/30/22 02:25 Pulse 69 06/30/22 02:25 Resp 18 06/30/22 02:25 BP 142/71 06/30/22 02:25 Pulse Ox 96 06/30/22 06:56 FiO2 21 06/28/22 08:02 Intake & Output 06/29/22 06/30/22 06/30/22 18:59 06:59 18:59 Intake Total 600 Balance 600 Intake: Oral 600 Other: Voiding Method Toilet # Voids 1 2 - Labs CBC & Chem 7: 06/30/22 05:48 06/30/22 05:48
[2022-06-30] MEDS ORDERED: IV FLUID CONTINUATION 1,000 ML IV ONE (13:25)
[2022-06-30] MEDS ORDERED: fentaNYL (PF) 50 MCG/ML 2 ML AMP IV ONE (13:33)
[2022-06-30] MEDS ORDERED: LIDOCAINE 1% INJ 10MG/ML (5 ML VIAL-PF) SQ ONE (13:33)
[2022-06-30] MEDS ORDERED: MIDAZOLAM 2 MG/2 ML VIAL IV ONE (13:33)
[2022-06-30] MEDS ORDERED: VERAPAMIL SYRINGE (5 MG/10 ML) INTRAARTER ONE (13:34)
[2022-06-30] MEDS ORDERED: HEPARIN SODIUM 1,000 UN/ML (10ML VL) IV ONE (13:35)
--- NOTE | 2022-06-30 13:51 | P.CARDCATH ---
Description of Procedure: PROCEDURES PERFORMED: Left heart catheterization, bilateral coronary angiography INDICATION: Chest pain concerning for unstable angina CONSENT:I have discussed the risks, benefits and alternative therapies for the above-mentioned procedure and for both sedation/analgesia as well as necessary blood product administration, if indicated, as they pertain to this patient. The patient has indicated understanding and acceptance of the risks and procedures discussed. PROCEDURE: After the risks, benefits and alternatives of the above mentioned procedure explained in detail with the patient, informed consent was obtained. Patient was taken to the catheterization lab and prepped and draped in usual fashion. 1% lidocaine was used to anesthetize the right radial artery. A 6- Spanish sheath was placed in the right radial artery using modified Seldinger technique. Left coronary angiography was performed with a 5-Spanish JL 3.5 cath eter and right coronary angiography was performed with a 5-Spanish JR5 catheter in various views. A 5-Spanish FR5 catheter was inserted into the left ventricle and pressure measurements were obtained. The right radial sheath was removed and a TR band was placed with hemostasis achieved. The patient tolerated the procedure well. Patient was transported back to the post catheterization holding area in stable condition. Conscious Sedation: Patient was monitored under the direct supervision of vision of myself for conscious sedation using Versed and fentanyl for a total duration of 14 minutes HEMODYNAMICS: Aorta: 129/79 LV: 129/14, LVEDP 22 SELECTIVE CORONARY ARTERIOGRAPHY: LEFT MAIN: The left main is a large caliber vessel which bifurcates into the LAD and circumflex. There is no significant stenosis. LEFT ANTERIOR DESCENDING CORONARY ARTERY: LAD is a large caliber vessel which wraps around to the apex. There are mild luminal irregularities including 10- 20% proximal and mid LAD stenosis LEFT CIRCUMFLEX CORONARY ARTERY: Left circumflex is a moderate to large caliber vessel with mild luminal irregularities up to 20-30% stenosis is the dominant vessel giving off a PDA. RIGHT CORONARY ARTERY: The right coronary artery is a small to moderate caliber vessel which gives off and acute marginal branch and is nondominant. There is a proximal RCA stent which is patent with mild temporal percent stenosis. FINAL IMPRESSION: 1. Mild CAD as described above including 20-30% circumflex and 10-20% LAD stenosis with patent nondominant RCA stent. 2. Mildly elevated left sided filling pressures PLAN: 1. Aggressive risk factor modification per most recent ACC/AHA guidelines. 2. Follow-up in the office in 1-2 weeks.
[2022-06-30] MEDS ORDERED: IOPAMIDOL-370 125ML BTL INJ ONE (13:57)
[2022-06-30 17:34] VITALS: RESP 18
[2022-06-30 18:17] VITALS: BP 127/68; PULSE 72
--- NOTE | 2022-07-01 18:48 | P.DS ---
Providers Date of admission: 06/27/22 14:58 Expected date of discharge: 06/30/22 Attending physician: Susan Saul Consults: 06/27/22 14:58 Consult Physician Urgent Consulting Provider: [facility] Consult Reason/Comments: Chest pain Do you want consulting provider notified?: Yes Primary care physician: Yara Wong Hospital Course: Final diagnosis Chest pain. Ruled out ACS. History of coronary artery disease status post stent placement x2 most recent about a year ago History of COVID-19 in April 2022 Hypertension Hyperkalemia History of [place] COPD Prior history of smoking DVT prophylaxis Discharge disposition Patient is being discharged in a stable condition with guarded prognosis to home . Patient will follow-up with Dr. Wong in the outpatient setting upon discharge. Patient is to follow up with cardiology as scheduled. Total time taken is greater than 35 minutes. Hospital course This is a 62-year-old male who was recently admitted with chest pain and underwent cardiac catheterization with no intervention done and recommends maximizing medical management and close outpatient follow up. Patient has been cleared by cardiology for discharge today. Patient encouraged to follow-up with primary care provider this week. Currently no reports of chest pain, shortness of breath, or palpitations. Patient is afebrile. No reports of nausea or vomiting and patient is tolerating diet. Patient will be discharged home today. Physical exam: Gen: This is a 62-year-old male who is awake, alert and oriented 3, well- developed, well-nourished. HEENT: Head is atraumatic, normocephalic. Pupils equal, round. Sclerae is anicteric. NECK: Supple. No JVD. No lymphadenopathy. No thyromegaly. LUNGS: Clear to auscultation. No wheezes or rhonchi. No intercostal retractions. HEART: Regular rate and rhythm. No murmur. ABDOMEN: Soft. Bowel sounds are present. No masses. No tenderness. EXTREMITIES: No pedal edema. No calf tenderness. NEUROLOGICAL: Patient is awake, alert and oriented x3. Cranial nerves 2 through 12 are grossly intact. Please refer to medication reconciliation sheet for a list of medications. The impression and plan of care has been dictated by Geovanna Vidal, Nurse Practitioner as directed. Dr. Isaura MD I have performed a history and examination and MDM of this patient, discussed the same with the dictator, and agree with the dictator's assessment and plan as written ,documented as a scribe. Based on total visit time, I have performed more than 50% of the visit. Patient Condition at Discharge: Fair Plan - Discharge Summary New Discharge Prescriptions: Continue Ranolazine [Ranolazine ER] 500 mg PO BID Isosorbide Mononitrate ER [Imdur] 90 mg PO DAILY Famotidine [Pepcid] 40 mg PO DAILY FLUoxetine HCL [PROzac] 40 mg PO DAILY Nitroglycerin Sl Tabs [Nitrostat] 0.4 mg SUBLINGUAL Q5M PRN PRN Reason: Chest Pain rOPINIRole HCL [Requip] 0.5 mg PO TID Acetaminophen Tab [Tylenol] 650 mg PO Q4HR PRN tab PRN Reason: Mild Pain Or Fever > 100.5 Ascorbic Acid [Vitamin C] 1,000 mg PO DAILY #60 tab Meclizine [Antivert] 12.5 mg PO TID #30 tab Folic Acid 1 mg PO DAILY #30 tab Metoprolol Tartrate [Lopressor] 25 mg PO BID Pantoprazole Sodium 40 mg PO BID Lansoprazole [Prevacid] 30 mg PO DAILY Atorvastatin Calcium [Lipitor] 80 mg PO HS FLUoxetine HCL [PROzac] 20 mg PO DAILY Albuterol Inhaler [Ventolin Hfa Inhaler] 2 puff INHALATION RT-QID 30 Days #1 each Cholecalciferol [Vitamin D3 (125 Mcg = 5000 Iu)] 125 mcg PO DAILY 30 Days #30 tab Aspirin 81 mg PO DAILY #30 tab Topiramate [Topamax] 50 mg PO BID #60 tab Cyanocobalamin [Vitamin B-12] 1,000 mcg PO DAILY #30 tab Discontinued Zinc Sulfate [Orazinc] 220 mg PO DAILY 14 Days #14 cap Discharge Medication List Atorvastatin Calcium [Lipitor] 80 mg PO HS 04/26/22 [History] FLUoxetine HCL [PROzac] 20 mg PO DAILY 04/26/22 [History] FLUoxetine HCL [PROzac] 40 mg PO DAILY 04/26/22 [History] Famotidine [Pepcid] 40 mg PO DAILY 04/26/22 [History] Isosorbide Mononitrate ER [Imdur] 90 mg PO DAILY 04/26/22 [History] Lansoprazole [Prevacid] 30 mg PO DAILY 04/26/22 [History] Metoprolol Tartrate [Lopressor] 25 mg PO BID 04/26/22 [History] Nitroglycerin Sl Tabs [Nitrostat] 0.4 mg SUBLINGUAL Q5M PRN 04/26/22 [History] Pantoprazole Sodium 40 mg PO BID 04/26/22 [History] Ranolazine [Ranolazine ER] 500 mg PO BID 04/26/22 [History] rOPINIRole HCL [Requip] 0.5 mg PO TID 04/26/22 [History] Acetaminophen Tab [Tylenol] 650 mg PO Q4HR PRN tab 04/30/22 [Rx] Albuterol Inhaler [Ventolin Hfa Inhaler] 2 puff INHALATION RT-QID 30 Days #1 each 04/30/22 [Rx] Ascorbic Acid [Vitamin C] 1,000 mg PO DAILY #60 tab 04/30/22 [Rx] Cholecalciferol [Vitamin D3 (125 Mcg = 5000 Iu)] 125 mcg PO DAILY 30 Days #30 tab 04/30/22 [Rx] Aspirin 81 mg PO DAILY #30 tab 05/14/22 [Rx] Cyanocobalamin [Vitamin B-12] 1,000 mcg PO DAILY #30 tab 05/14/22 [Rx] Folic Acid 1 mg PO DAILY #30 tab 05/14/22 [Rx] Meclizine [Antivert] 12.5 mg PO TID #30 tab 05/14/22 [Rx] Topiramate [Topamax] 50 mg PO BID #60 tab 05/14/22 [Rx] Follow up Appointment(s)/Referral(s): Sebastian Mendoza MD [STAFF PHYSICIAN] - 1 Week Yara Wong MD [Primary Care Provider] - 1-2 days Patient Instructions/Handouts: *Surgery [facility] - After Heart Catheterization - Seafood Manager Instructions Activity/Diet/Wound Care/Special Instructions: Activity Limited until follow-up Follow-up with primary care provider on discharge Follow-up cardiology outpatient Continue taking medications as prescribed Encourage fluids and rest Discharge Disposition: HOME SELF-CARE
== END 2022-06-30 18:10 | disposition home or self-care (01) ==
LOC: EC 09:37 → 6NMEDSUR 14:58
PROVIDERS: ADMIT Internal Medicine; ATTEND Internal Medicine
DX: R07.89 Other chest pain (principal); I25.10 Atherosclerotic heart disease of native coronary artery without angina pectoris; E87.5 Hyperkalemia; I10 Essential (primary) hypertension; I25.2 Old myocardial infarction; J44.9 Chronic obstructive pulmonary disease, unspecified; J06.9 Acute upper respiratory infection, unspecified; E78.00 Pure hypercholesterolemia, unspecified; E78.1 Pure hyperglyceridemia; R61 Generalized hyperhidrosis; R11.0 Nausea; E66.9 Obesity, unspecified; Z68.29 Body mass index [BMI] 29.0-29.9, adult; H54.62 Unqualified visual loss, left eye, normal vision right eye; Z20.822 Contact with and (suspected) exposure to COVID-19; Z86.16 Personal history of COVID-19; Z79.82 Long term (current) use of aspirin; Z79.899 Other long term (current) drug therapy; Z88.5 Allergy status to narcotic agent; Z87.891 Personal history of nicotine dependence; Z95.5 Presence of coronary angioplasty implant and graft; Z86.73 Personal history of transient ischemic attack (TIA), and cerebral infarction without residual deficits
CPT/HCPCS: 96372 ×3; 99285; 36415; 94640 ×5; 94760 ×2; 93005; 93458; 80061; 80053; 80048; 83735; 84484; 85025 ×2; 85610; 85730; 87636; 71046; G0378 ×4; C1769; C1894; J2250; J2001; J3010; J1644 ×4; Q9967

== ENCOUNTER 2022-07-02 12:21 | Emergency (ER) | payer OTHER ==
[2022-07-02 12:30] VITALS: RESP 16
[2022-07-02 13:14] LABS: Basophils % (A) 0 %; Eosinophils # (A) 0.1 k/uL (0-0.7); Eosinophils % (A) 1 %; HCT 40.7 % (39.0-53.0); HGB 14.5 gm/dL (13.0-17.5); Hyperchromasia Slight; Lymphocytes % (A) 13 %; MCHC 35.6 g/dL (31.0-37.0); Mean Platelet Volume 7.5; Monocytes # (A) 0.4 k/uL (0-1.0); Monocytes % (A) 5 %; Neutrophils # (A) 6.1 k/uL (1.3-7.7); Neutrophils % (A) 77 %; Platelet Count 228 k/uL (150-450); RBC 4.53 m/uL (4.30-5.90); RDW 13.6 % (11.5-15.5); WBC 7.8 k/uL (3.8-10.6)
[2022-07-02 13:22] LABS: Albumin 4.2 g/dL (3.5-5.0); Calcium 8.8 mg/dL (8.4-10.2); Potassium 4.3 mmol/L (3.5-5.1); Total Protein 7.1 g/dL (6.3-8.2)
[2022-07-02 13:25] LABS: Partial Thromboplastin Time 23.7 sec (22.0-30.0); Prothrombin Time 10.4 sec (9.0-12.0)
--- NOTE | 2022-07-02 13:40 | CT ---
EXAMINATION TYPE: CT brain wo con DATE OF EXAM: 07/02/2022 COMPARISON: 05/12/2022 INDICATION: c/o dizziness DLP: 1143.6 mGycm, Automated exposure control for dose reduction was used. CONTRAST: None CT of the brain is performed utilizing 3 mm thick sections through the posterior fossa and 3 mm thick sections through the remaining calvarium. Study is performed within 24 hours of arrival to the hosp ital. No abnormal hyperdensity is present to suggest an acute intracranial hemorrhage. No mass lesion is evident. No acute infarcts are evident. Patchy periventricular white matter hypodensity is present, likely on the basis of chronic white matter ischemic changes. This appears stable from comparison. Ventricles and sulci are somewhat prominent for the patient age. Paranasal sinuses and mastoid air cells within the [id number] are clear. IMPRESSIONS: 1. Patchy periventricular white matter changes, similar to comparison study. Findings Likely on the basis of chronic white matter ischemic changes.
--- NOTE | 2022-07-02 13:40 | XR ---
EXAMINATION TYPE: XR chest 2V DATE OF EXAM: 07/02/2022 COMPARISON: 06/27/2022 INDICATION: Acute altered mental status TECHNIQUE: Frontal and lateral views of the chest are obtained. FINDINGS: The heart size is normal. The pulmonary vasculature is normal. The lungs are clear. IMPRESSION: 1. No acute pulmonary process.
[2022-07-02 14:26] VITALS: TEMP 97.7
--- NOTE | 2022-07-02 14:36 | CT ---
EXAMINATION TYPE: CT angio head neck DATE OF EXAM: 07/02/2022 HISTORY: c/o dizziness COMPARISON: CT DLP: 549.5 mGycm. Automated Exposure Control for Dose Reduction was Utilized. TECHNIQUE: CTA scan of the neck is performed with IV Contrast, patient injected with 65cc mL of Isov ue 370, axial images are obtained, coronal and sagittal reformatted images are reviewed. Three-D lee ann nstructed images are created on an independent workstation and reviewed. Source images are reviewed. FINDINGS: Carotid/Vascular Structures: There is a three-vessel arch. The left vertebral artery has a very low t akeoff near the origin of the left subclavian. Atheromatous plaquing at the carotid bifurcations with out significant flow-limiting stenosis. Vertebral arteries are codominant. Cervical of [place]: Vertebral basilar system appears normal. Posterior cerebral vasculature is unrema rkable. Internal carotid arteries bifurcate normally into A1 and M1 segments. A2 segments are normal. The anterior communicating artery is patent. Left Posterior communicating artery is absent. Right po sterior communicating artery is patent. IMPRESSION: 1. No flow-limiting stenosis bilateral carotid bifurcations. 2. Normal [place] NASCET criteria was used in interpretation of this exam?
--- NOTE | 2022-07-02 14:55 | ED ---
General Adult HPI - General Chief complaint: Neuro Symptoms/Deficit Stated complaint: neuro deficit Time Seen by Provider: 07/02/22 12:40 Source: patient Mode of arrival: wheelchair - History of Present Illness Initial comments: 62-year-old male with past medical history of multiple TIAs and MIs who presents to the emergency department with visual deficit in his left eye. Patient is a very poor historian and therefore history is difficult to elicit. States that he has long-standing poor vision in his left eye. He states that he normally can't look at the TV Guide or read his cell phone. He has loss of his peripheral vision. States that his vision is so bad that his neurologist recommended that he no longer have a license. He does wear glasses. Unsure when his last eye exam was. He was recently hospitalized for chest pain. Cardiac catheterization was performed for which she did not require stent placement. Patient was discharged home. States that even before he left the hospital that he felt like the vision in his left eye was slightly decreased. He followed up with his neurologist in office today for routine follow-up appointment. Did mention the visual disturbance and they recommended that he come to the emergency room for evaluation. Patient failed to mention to them that this is a chronic issue. He denies any new weakness in his extremities. No chest pain or shortness of breath. No ocular pain. No other alleviating, precipitating or modifying factors - Related Data Home Medications Medication Instructions Recorded Confirmed Atorvastatin Calcium [Lipitor] 80 mg PO HS 04/26/22 06/27/22 FLUoxetine HCL [PROzac] 20 mg PO DAILY 04/26/22 06/27/22 FLUoxetine HCL [PROzac] 40 mg PO DAILY 04/26/22 06/27/22 Famotidine [Pepcid] 40 mg PO DAILY 04/26/22 06/27/22 Isosorbide Mononitrate ER [Imdur] 90 mg PO DAILY 04/26/22 06/27/22 Lansoprazole [Prevacid] 30 mg PO DAILY 04/26/22 06/27/22 Metoprolol Tartrate [Lopressor] 25 mg PO BID 04/26/22 06/27/22 Nitroglycerin Sl Tabs [Nitrostat] 0.4 mg SUBLINGUAL Q5M PRN 04/26/22 06/27/22 Pantoprazole Sodium 40 mg PO BID 04/26/22 06/27/22 Ranolazine [Ranolazine ER] 500 mg PO BID 04/26/22 06/27/22 rOPINIRole HCL [Requip] 0.5 mg PO TID 04/26/22 06/27/22 Previous Rx's Medication Instructions Recorded Acetaminophen Tab [Tylenol] 650 mg PO Q4HR PRN tab 04/30/22 Albuterol Inhaler [Ventolin Hfa 2 puff INHALATION RT-QID 30 Days 04/30/22 Inhaler] #1 each Ascorbic Acid [Vitamin C] 1,000 mg PO DAILY #60 tab 04/30/22 Cholecalciferol [Vitamin D3 (125 125 mcg PO DAILY 30 Days #30 tab 04/30/22 Mcg = 5000 Iu)] Aspirin 81 mg PO DAILY #30 tab 05/14/22 Cyanocobalamin [Vitamin B-12] 1,000 mcg PO DAILY #30 tab 05/14/22 Folic Acid 1 mg PO DAILY #30 tab 05/14/22 Meclizine [Antivert] 12.5 mg PO TID #30 tab 05/14/22 Topiramate [Topamax] 50 mg PO BID #60 tab 05/14/22 Allergies Allergy/AdvReac Type Severity Reaction Status Date / Time codeine Allergy Swelling Verified 07/02/22 12:29 Review of Systems ROS Statement: Those systems with pertinent positive or pertinent negative responses have been documented in the HPI. ROS Other: All systems not noted in ROS Statement are negative. Past Medical History Past Medical History: Chest Pain / Angina, COPD, CVA/TIA, GERD/Reflux, Hyperlipidemia, Hypertension, Myocardial Infarction (AL) Additional Past Medical History / Comment(s): COVID April 2022, multiple MIs, TIA, peripheral vision loss of left eye Last Myocardial Infarction Date:: 2020 History of Any Multi-Drug Resistant Organisms: None Reported Past Surgical History: Heart Catheterization With Stent Additional Past Surgical History / Comment(s): 2 cardiac stents Past Anesthesia/Blood Transfusion Reactions: No Reported Reaction Date of Last Stent Placement:: 2020 Past Psychological History: No Psychological Hx Reported Smoking Status: Former smoker Past Alcohol Use History: None Reported Past Drug Use History: None Reported General Exam General appearance: alert, in no apparent distress Head exam: Present: atraumatic, normocephalic, normal inspection Eye exam: Present: normal appearance, PERRL, EOMI. Absent: scleral icterus, conjunctival injection, periorbital swelling ENT exam: Present: normal exam, mucous membranes moist Neck exam: Present: normal inspection. Absent: tenderness, meningismus, lymphadenopathy Respiratory exam: Present: normal lung sounds bilaterally. Absent: respiratory distress, wheezes, rales, rhonchi, stridor Cardiovascular Exam: Present: regular rate, normal rhythm, normal heart sounds. Absent: systolic murmur, diastolic murmur, rubs, gallop, clicks GI/Abdominal exam: Present: soft, normal bowel sounds. Absent: distended, tenderness, guarding, rebound, rigid Extremities exam: Present: normal inspection, full ROM, normal capillary refill. Absent: tenderness, pedal edema, joint swelling, calf tenderness Back exam: Present: normal inspection Neurological exam: Present: alert, oriented X3, CN II-XII intact Psychiatric exam: Present: normal affect, normal mood Skin exam: Present: warm, dry, intact, normal color. Absent: rash Course Vital Signs 07/02/22 07/02/22 07/02/22 12:25 14:25 16:39 Temperature 97.6 F 97.7 F Pulse Rate 87 74 77 Respiratory 16 16 16 Rate Blood Pressure 174/95 148/93 116/80 O2 Sat by Pulse 97 96 97 Oximetry EKG Findings - EKG Comments: EKG Findings:: EKG demonstrates sinus rhythm with rate of 85. [place] interval of 162. QRS 96. QTC of 424. No acute ST segment elevations or depressions Medical Decision Making - Medical Decision Making Was pt. sent in by a medical professional or institution? patient reports his neurologist sent him in Did you speak to anyone other than the patient for history? Did you review nursing and triage notes? yes and I agree Were old charts reviewed? yes. previous hospitalizations - recent visit as of last week Differential Diagnosis? MDM Differential Weakness: Hypoglycemia, shock, sepsis, hyponatremia, anemia, infection, AL, ETOH, adverse medicine reaction, overdose, stroke. ... This is not meant to be an all- inclusive list EKG interpreted by me (3pts min.)? yes X-rays interpreted by me (1pt min.)? yes CT interpreted by me (1pt min.)? yes U/S interpreted by me (1pt. min.)? no What testing was considered but not performed? (CT, X-rays, U/S, labs)? Why? none What meds were considered but not given? Why? TPA - patient reports his symptoms are chronic Did you discuss the management of the patient with other professionals? nno Did you reconcile home meds? no Was smoking cessation discussed for >3mins.? no Was critical care preformed (if so, how long)? no Were there social determinants of health that impacted care today? How? (Homelessness, low income, unemployed, alcoholism, drug addiction, transportation, low edu. Level, literacy, decrease access to med. care, senior living, rehab)? low education level - patient can not describe onset of symptoms. States visual problem is new within the past week however reports his neurologist took his drivers license away due to poor vision in left eye Was there de-escalation of care discussed even if they declined? (Discuss DNR or withdrawal of care, Hospice)? no What co-morbidities impacted this encounter? (DM, HTN, Smoking, COPD, CAD, Cancer, CVA, Hep., AIDS, mental health diagnosis, sleep apnea, morbid obesity)? multiple tia, htn, mi, cad Was patient admitted / discharged? Upon arrival the patient was placed into room 5. A thorough history and physical exam was performed. Patient is extremely difficult to elicit a history from. He states that his vision changes are chronic. I did request to perform a workup to ensure that symptoms are not new. Visual acuity is 20/40 in the left eye and 20/30 in the right eye. Ultrasound is performed of the left eye which does not demonstrate retinal or vitreous detachment. Laboratory studies are obtained. Patient does go for CT as well as CT angiography. Laboratory studies are reviewed by myself within normal range. CT and CT angiography demonstrated chronic small vessel ischemia however no flow limiting stenosis. I discussed the results with the patient. He is eager to go home. I informed him that he needs to follow-up with an business development assistant due to his chronic visual disturbance. Patient understood this. He was given recommendations to follow- up with Dr. Plaza. Return for any new or worsening symptoms. Patient agreeable and discharged home in stable condition Undiagnosed new problem with uncertain prognosis? yes Drug Therapy requiring intensive monitoring for toxicity (Heparin, Nitro, Insulin, Cardizem)? no Were any procedures done? ultrasound of the left eye - photos saved for reference Diagnosis/symptom? subacute/chronic left visual disturbance Acute, or Chronic, or Acute on Chronic? subacute on chronic Uncomplicated (without systemic symptoms) or Complicated (systemic symptoms)? complicated Side effects of treatment? none Exacerbation, Progression, or Severe Exacerbation] exacerbation Poses a threat to life or bodily function? no - Lab Data Result diagrams: 07/02/22 13:03 07/02/22 13:03 Lab Results 07/02/22 07/02/22 07/02/22 Range/Units 13:03 13:03 13:03 WBC 7.8 (3.8-10.6) k/uL RBC 4.53 (4.30-5.90) m/uL Hgb 14.5 (13.0-17.5) gm/dL Hct 40.7 (39.0-53.0) % MCV 90.0 (80.0-100.0) fL MCH 32.0 (25.0-35.0) pg MCHC 35.6 (31.0-37.0) g/dL RDW 13.6 (11.5-15.5) % Plt Count 228 (150-450) k/uL MPV 7.5 Neutrophils % 77 % Lymphocytes % 13 % Monocytes % 5 % Eosinophils % 1 % Basophils % 0 % Neutrophils # 6.1 (1.3-7.7) k/uL Lymphocytes # 1.0 (1.0-4.8) k/uL Monocytes # 0.4 (0-1.0) k/uL Eosinophils # 0.1 (0-0.7) k/uL Basophils # 0.0 (0-0.2) k/uL Hyperchromasia Slight PT 10.4 (9.0-12.0) sec INR 1.0 (<1.2) APTT 23.7 (22.0-30.0) sec Sodium 137 (137-145) mmol/L Potassium 4.3 (3.5-5.1) mmol/L Chloride 109 H (98-107) mmol/L Carbon Dioxide 20 L (22-30) mmol/L Anion Gap 8 mmol/L BUN 13 (9-20) mg/dL Creatinine 1.18 (0.66-1.25) mg/dL Est GFR (CKD-EPI)AfAm 76 (>60 ml/min/1.73 sqM) Est GFR (CKD-EPI)NonAf 65 (>60 ml/min/1.73 sqM) Glucose 136 H (74-99) mg/dL Calcium 8.8 (8.4-10.2) mg/dL Total Bilirubin 1.0 (0.2-1.3) mg/dL AST 65 H (17-59) U/L ALT 75 H (4-49) U/L Alkaline Phosphatase 96 (38-126) U/L Troponin I (0.000-0.034) ng/mL Total Protein 7.1 (6.3-8.2) g/dL Albumin 4.2 (3.5-5.0) g/dL 07/02/22 Range/Units 13:03 WBC (3.8-10.6) k/uL RBC (4.30-5.90) m/uL Hgb (13.0-17.5) gm/dL Hct (39.0-53.0) % MCV (80.0-100.0) fL MCH (25.0-35.0) pg MCHC (31.0-37.0) g/dL RDW (11.5-15.5) % Plt Count (150-450) k/uL MPV Neutrophils % % Lymphocytes % % Monocytes % % Eosinophils % % Basophils % % Neutrophils # (1.3-7.7) k/uL Lymphocytes # (1.0-4.8) k/uL Monocytes # (0-1.0) k/uL Eosinophils # (0-0.7) k/uL Basophils # (0-0.2) k/uL Hyperchromasia PT (9.0-12.0) sec INR (<1.2) APTT (22.0-30.0) sec Sodium (137-145) mmol/L Potassium (3.5-5.1) mmol/L Chloride (98-107) mmol/L Carbon Dioxide (22-30) mmol/L Anion Gap mmol/L BUN (9-20) mg/dL Creatinine (0.66-1.25) mg/dL Est GFR (CKD-EPI)AfAm (>60 ml/min/1.73 sqM) Est GFR (CKD-EPI)NonAf (>60 ml/min/1.73 sqM) Glucose (74-99) mg/dL Calcium (8.4-10.2) mg/dL Total Bilirubin (0.2-1.3) mg/dL AST (17-59) U/L ALT (4-49) U/L Alkaline Phosphatase (38-126) U/L Troponin I <0.012 (0.000-0.034) ng/mL Total Protein (6.3-8.2) g/dL Albumin (3.5-5.0) g/dL Disposition Clinical Impression: Visual disturbance Disposition: HOME SELF-CARE Condition: Stable Instructions (If sedation given, give patient instructions): Blurred Vision (ED) Additional Instructions: Please follow-up with the eye doctor for a full dilated eye exam. Return to the emergency room for any new or worsening symptoms Is patient prescribed a controlled substance at d/c from ED?: No Referrals: Yara Wong MD [Primary Care Provider] - 1-2 days Odilon Plaza MD [STAFF PHYSICIAN] - 1-2 days Time of Disposition: 16:11
[2022-07-02 16:40] VITALS: BP 116/80; PULSE 77
== END 2022-07-02 16:45 | disposition home or self-care (01) ==
LOC: EC 12:21
DX: H53.9 Unspecified visual disturbance (principal); I10 Essential (primary) hypertension; E78.5 Hyperlipidemia, unspecified; K21.9 Gastro-esophageal reflux disease without esophagitis; Z95.9 Presence of cardiac and vascular implant and graft, unspecified; Z79.899 Other long term (current) drug therapy; Z87.891 Personal history of nicotine dependence; Z86.73 Personal history of transient ischemic attack (TIA), and cerebral infarction without residual deficits
CPT/HCPCS: 36415; 93005; 80053; 84484; 85025; 85610; 85730; 71046; 70496; 70450; 70498; 99285; Q9967

== ENCOUNTER 2022-07-21 15:02 | Inpatient (IN) | payer OTHER ==
--- NOTE | 2022-07-21 15:29 | XR ---
EXAMINATION TYPE: XR chest 2V DATE OF EXAM: 07/21/2022 3:25 PM COMPARISON: Chest radiographs from 07/02/2022 TECHNIQUE: XR chest 2V Frontal and lateral views of the chest. CLINICAL INDICATION:Male, 62 years old with history of dysrhythmia; FINDINGS: Lungs/Pleura: There is no evidence of pleural effusion, focal consolidation, or pneumothorax. Left b asilar scarring and/or atelectasis. Flattening of the hemidiaphragms. Pulmonary vascularity: Unremarkable. Heart/mediastinum: Cardiomediastinal silhouette is unremarkable. Musculoskeletal: No acute osseous pathology. IMPRESSION: 1. No acute cardiopulmonary disease/process. 2. Possible COPD.
[2022-07-21 15:34] LABS: ALT 52 U/L (4-49); AST 29 U/L (17-59); African American GFR (CKD) >90 (>60 ml/min/1.73 sqM); Albumin 4.3 g/dL (3.5-5.0); Alkaline Phosphatase 112 U/L (38-126); Anion Gap 10 mmol/L; Blood Urea Nitrogen 11 mg/dL (9-20); Calcium 9.2 mg/dL (8.4-10.2); Carbon Dioxide 23 mmol/L (22-30); Chloride 105 mmol/L (98-107); Glucose 143 mg/dL (74-99); Magnesium 1.7 mg/dL (1.6-2.3); Non-African American GFR(CKD) >90 (>60 ml/min/1.73 sqM); Sodium 138 mmol/L (137-145); Total Bilirubin 0.7 mg/dL (0.2-1.3)
[2022-07-21 15:39] LABS: INR 0.9 (<1.2); Partial Thromboplastin Time 22.3 sec (22.0-30.0); Prothrombin Time 9.5 sec (9.0-12.0)
[2022-07-21] MEDS ORDERED: PANTOPRAZOLE 40 MG/10 ML VIAL IVP STA (16:32)
--- NOTE | 2022-07-21 17:13 | ED ---
General Adult HPI - General Chief complaint: Arrhythmia/Palpitations Stated complaint: Tachycardia Time Seen by Provider: 07/21/22 15:20 Source: patient, RN notes reviewed, old records reviewed Mode of arrival: ambulatory Limitations: no limitations - History of Present Illness Initial comments: This is a 62-year-old male who presents emergency Department with a past medical history complaining of tachycardia. Patient states his heart rate at home was 160. Patient was over to see his block trimmer, Dr. Fonseca and Dr[facility] emergency [facility]. Patient also complained of chest pain, shortness of breath. Patient states it's not really a pain is more of a pressure sensation. Patient denies any diaphoretic episodes. Patient denies any fever chills or cough. Patient denies any abdominal pain. Patient denies any nausea or vomiting. Patient states he can feel his heart racing. Patient denies any new medications or illegal drug use. Patient denies any recent fever chills or cough. Patient denies any swelling to her legs or calf tenderness. - Related Data Home Medications Medication Instructions Recorded Confirmed Atorvastatin Calcium [Lipitor] 80 mg PO HS 04/26/22 06/27/22 FLUoxetine HCL [PROzac] 20 mg PO DAILY 04/26/22 06/27/22 FLUoxetine HCL [PROzac] 40 mg PO DAILY 04/26/22 06/27/22 Famotidine [Pepcid] 40 mg PO DAILY 04/26/22 06/27/22 Isosorbide Mononitrate ER [Imdur] 90 mg PO DAILY 04/26/22 06/27/22 Lansoprazole [Prevacid] 30 mg PO DAILY 04/26/22 06/27/22 Metoprolol Tartrate [Lopressor] 25 mg PO BID 04/26/22 06/27/22 Nitroglycerin Sl Tabs [Nitrostat] 0.4 mg SUBLINGUAL Q5M PRN 04/26/22 06/27/22 Pantoprazole Sodium 40 mg PO BID 04/26/22 06/27/22 Ranolazine [Ranolazine ER] 500 mg PO BID 04/26/22 06/27/22 rOPINIRole HCL [Requip] 0.5 mg PO TID 04/26/22 06/27/22 Previous Rx's Medication Instructions Recorded Acetaminophen Tab [Tylenol] 650 mg PO Q4HR PRN tab 04/30/22 Albuterol Inhaler [Ventolin Hfa 2 puff INHALATION RT-QID 30 Days 04/30/22 Inhaler] #1 each Ascorbic Acid [Vitamin C] 1,000 mg PO DAILY #60 tab 04/30/22 Cholecalciferol [Vitamin D3 (125 125 mcg PO DAILY 30 Days #30 tab 04/30/22 Mcg = 5000 Iu)] Aspirin 81 mg PO DAILY #30 tab 05/14/22 Cyanocobalamin [Vitamin B-12] 1,000 mcg PO DAILY #30 tab 05/14/22 Folic Acid 1 mg PO DAILY #30 tab 05/14/22 Meclizine [Antivert] 12.5 mg PO TID #30 tab 05/14/22 Topiramate [Topamax] 50 mg PO BID #60 tab 05/14/22 Allergies Allergy/AdvReac Type Severity Reaction Status Date / Time codeine Allergy Swelling Verified 07/02/22 12:29 Review of Systems ROS Statement: Those systems with pertinent positive or pertinent negative responses have been documented in the HPI. ROS Other: All systems not noted in ROS Statement are negative. Past Medical History Past Medical History: Chest Pain / Angina, COPD, CVA/TIA, GERD/Reflux, Hyperlipidemia, Hypertension, Myocardial Infarction ([place]) Additional Past Medical History / Comment(s): COVID April 2022, multiple MIs, TIA, peripheral vision loss of left eye Last Myocardial Infarction Date:: 2020 History of Any Multi-Drug Resistant Organisms: None Reported Past Surgical History: Heart Catheterization With Stent Additional Past Surgical History / Comment(s): 2 cardiac stents Past Anesthesia/Blood Transfusion Reactions: No Reported Reaction Date of Last Stent Placement:: 2020 Past Psychological History: No Psychological Hx Reported Smoking Status: Former smoker Past Alcohol Use History: None Reported Past Drug Use History: None Reported General Exam - General Exam Comments Initial Comments: GENERAL: Patient is well-developed and well-nourished. Patient is nontoxic and well- hydrated and is in mild distress. ENT: Neck is soft and supple. No significant lymphadenopathy is noted. Oropharynx is clear. Moist mucous membranes. Neck has full range of motion without eliciting any pain. EYES: The sclera were anicteric and conjunctiva were pink and moist. Extraocular movements were intact and pupils were equal round and reactive to light. Eyelids were unremarkable. PULMONARY: Unlabored respirations. Good breath sounds bilaterally. No audible rales rhonchi or wheezing was noted. CARDIOVASCULAR: Patient is tachycardic in the 130 beats a minute ABDOMEN: Soft and nontender with normal bowel sounds. No palpable organomegaly was noted. There is no palpable pulsatile mass. SKIN: Skin is clear with no lesions or rashes and otherwise unremarkable. NEUROLOGIC: Patient is alert and oriented x3. Cranial nerves II through XII are grossly intact. Motor and sensory are also intact. Normal speech, volume and content. Symmetrical smile. MUSCULOSKELETAL: Normal extremities with adequate strength and full range of motion. No lower extremity swelling or edema. No calf tenderness. LYMPHATICS: No significant lymphadenopathy is noted PSYCHIATRIC: Normal psychiatric evaluation. Limitations: no limitations Course Vital Signs 07/21/22 07/21/22 07/21/22 15:04 15:42 16:47 Temperature 97.4 F L Pulse Rate 129 H 116 H 112 H Pulse Rate [ 116 H [employer] ] Respiratory 24 18 18 Rate Blood Pressure 156/89 138/96 158/103 O2 Sat by Pulse 97 95 94 L Oximetry 07/21/22 07/21/22 07/21/22 18:00 19:00 20:19 Temperature 97.6 F Pulse Rate 106 H 104 H 96 Pulse Rate [ [employer] ] Respiratory 18 18 17 Rate Blood Pressure 125/98 150/94 142/95 O2 Sat by Pulse 95 95 93 L Oximetry Medical Decision Making - Medical Decision Making EKG is interpreted by myself. EKG shows a sinus tachycardia at 124 bpm TN interval 133 QRSs 85, QT interval 310 QTC is 383. Patient's EKG shows no ST se gment elevation or depression. Was pt. sent in by a medical professional or institution (, PA, CERTIFIED CREDIT COUNSELOR, urgent care, hospital, or long term...) When possible be specific @ -Dr. Fonseca, the block trimmer and the patient to the hospital Did you speak to anyone other than the patient for history (EMS, parent, family, police, friend...)? What history was obtained from this source @ -No Did you review nursing and triage notes (agree or disagree)? Why? @ -I reviewed and agree with nursing and triage notes Were old charts reviewed (outside hosp., previous admission, EMS record, old EKG, old radiological studies, urgent care reports/EKG's, long term records)? Report findings @ -. I reviewed old EKGs in old lab work from prior visits Differential Diagnosis (chest pain, altered mental status, abdominal pain women, abdominal pain men, vaginal bleeding, weakness, fever, dyspnea, syncope, headache, dizziness, GI bleed, back pain, seizure, CVA, palpatations, mental health)? @ -Differential Chest Pain: Stable Angina, Unstable Angina, STEMI, NSTEMI Aortic Dissection, Pneumothorax, Musculoskeletal, Esophageal Spasm GERD, Cholecystitis, Pancreatitis, Zoster, this is not meant to be an all-inclusive list. EKG interpreted by me (3pts min.). @ -As above X-rays interpreted by me (1pt min.). @ -Chest x-ray is interpreted by myself and saw no acute abnormality. CT interpreted by me (1pt min.). @ -CT of the chest was interpreted by myself. There was no obvious PE U/S interpreted by me (1pt. min.). @ -None done What testing was considered but not performed or refused? (CT, X-rays, U/S, labs)? Why? @ -None What meds were considered but not given or refused? Why? @ -None Did you discuss the management of the patient with other professionals (professionals i.e. , PA, CERTIFIED CREDIT COUNSELOR, lab, RT, psych nurse, social media sr strategy manager, rn teacher, teacher, disbursing officer, manager case)? Give summary @ -I spoke with Dr. Saul doctors agreed to admit the patient admitted the patient I wrote admitting orders Was smoking cessation discussed for >3mins.? @ -No Was critical care preformed (if so, how long)? @ -No Were there social determinants of health that impacted care today? How? (Homelessness, low income, unemployed, alcoholism, drug addiction, transportation, low edu. Level, literacy, decrease access to med. care, intermediate, rehab)? @ -No Was there de-escalation of care discussed even if they declined (Discuss DNR or withdrawal of care, Hospice)? DNR status @ -No What co-morbidities impacted this encounter? (DM, HTN, Smoking, COPD, CAD, Cancer, CVA, ARF, Chemo, Hep., AIDS, mental health diagnosis, sleep apnea, morbid obesity)? @ -None Was patient admitted / discharged? Hospital course, mention meds given and route, prescriptions, significant lab abnormalities, going to OR and other pertinent info. @ -Patient a chest x-ray showed no acute abnormality. Patient's d-dimer was elevated and because the tachycardia, shortness of breath and chest pain. I did a CT to rule out PE which was negative for PE and no other abnormality was noted. I spoke with Dr. Saul he agreed to admit the patient since Dr. Fonseca saw the patient wanted patient minute. Patient's heart rate came down from 132, 80s when I was in the room. Patient still is having minimal chest pain considerably better than earlier. I admitted the patient wrote admitting orders. I consulted cardiology Undiagnosed new problem with uncertain prognosis? @ -No Drug Therapy requiring intensive monitoring for toxicity (Heparin, Nitro, Insulin, Cardizem)? @ -No Were any procedures done? @ -No Diagnosis/symptom? @ -Chest pain, dyspnea Acute, or Chronic, or Acute on Chronic? @ -Acute Uncomplicated (without systemic symptoms) or Complicated (systemic symptoms)? @ -Complicated Side effects of treatment? @ -No Exacerbation, Progression, or Severe Exacerbation? @ -No Poses a threat to life or bodily function? How? (Chest pain, [place], [place], pneumonia, PE, COPD, DKA, ARF, appy, cholecystitis, CVA, Diverticulitis, Homicidal, Suicidal, threat to staff... and all critical care pts) @ -Yes. If the patient was hypoxic is this could cause end organ dysfunction Diagnosis/symptom? @ -Palpitations Acute, or Chronic, or Acute on Chronic? @ -Acute Uncomplicated (without systemic symptoms) or Complicated (systemic symptoms)? @ -Complicated patient is having chest pain difficulty breathing Side effects of treatment? @ -none Exacerbation, Progression, or Severe Exacerbation] @ -no Poses a threat to life or bodily function? @ -no - Lab Data Result diagrams: 07/21/22 19:20 07/21/22 15:16 Lab Results 07/21/22 07/21/22 07/21/22 Range/Units 15:16 15:16 15:16 WBC (3.8-10.6) k/uL RBC (4.30-5.90) m/uL Hgb (13.0-17.5) gm/dL Hct (39.0-53.0) % MCV (80.0-100.0) fL MCH (25.0-35.0) pg MCHC (31.0-37.0) g/dL RDW (11.5-15.5) % Plt Count (150-450) k/uL MPV Neutrophils % % Lymphocytes % % Monocytes % % Eosinophils % % Basophils % % Neutrophils # (1.3-7.7) k/uL Lymphocytes # (1.0-4.8) k/uL Monocytes # (0-1.0) k/uL Eosinophils # (0-0.7) k/uL Basophils # (0-0.2) k/uL PT 9.5 (9.0-12.0) sec INR 0.9 (<1.2) APTT 22.3 (22.0-30.0) sec D-Dimer (<0.60) mg/L FEU Sodium 138 (137-145) mmol/L Potassium 5.0 (3.5-5.1) mmol/L Chloride 105 (98-107) mmol/L Carbon Dioxide 23 (22-30) mmol/L Anion Gap 10 mmol/L BUN 11 (9-20) mg/dL Creatinine 0.73 (0.66-1.25) mg/dL Est GFR (CKD-EPI)AfAm >90 (>60 ml/min/1.73 sqM) Est GFR (CKD-EPI)NonAf >90 (>60 ml/min/1.73 sqM) Glucose 143 H (74-99) mg/dL Calcium 9.2 (8.4-10.2) mg/dL Magnesium 1.7 (1.6-2.3) mg/dL Total Bilirubin 0.7 (0.2-1.3) mg/dL AST 29 (17-59) U/L ALT 52 H (4-49) U/L Alkaline Phosphatase 112 (38-126) U/L Troponin I <0.012 (0.000-0.034) ng/mL Total Protein 7.0 (6.3-8.2) g/dL Albumin 4.3 (3.5-5.0) g/dL 07/21/22 07/21/22 Range/Units 15:16 19:20 WBC 10.4 (3.8-10.6) k/uL RBC 4.45 (4.30-5.90) m/uL Hgb 14.0 (13.0-17.5) gm/dL Hct 40.3 (39.0-53.0) % MCV 90.5 (80.0-100.0) fL MCH 31.3 (25.0-35.0) pg MCHC 34.6 (31.0-37.0) g/dL RDW 13.1 (11.5-15.5) % Plt Count 188 (150-450) k/uL MPV 7.4 Neutrophils % 86 % Lymphocytes % 7 % Monocytes % 5 % Eosinophils % 0 % Basophils % 0 % Neutrophils # 9.0 H (1.3-7.7) k/uL Lymphocytes # 0.7 L (1.0-4.8) k/uL Monocytes # 0.6 (0-1.0) k/uL Eosinophils # 0.0 (0-0.7) k/uL Basophils # 0.0 (0-0.2) k/uL PT (9.0-12.0) sec INR (<1.2) APTT (22.0-30.0) sec D-Dimer 0.65 H (<0.60) mg/L FEU Sodium (137-145) mmol/L Potassium (3.5-5.1) mmol/L Chloride (98-107) mmol/L Carbon Dioxide (22-30) mmol/L Anion Gap mmol/L BUN (9-20) mg/dL Creatinine (0.66-1.25) mg/dL Est GFR (CKD-EPI)AfAm (>60 ml/min/1.73 sqM) Est GFR (CKD-EPI)NonAf (>60 ml/min/1.73 sqM) Glucose (74-99) mg/dL Calcium (8.4-10.2) mg/dL Magnesium (1.6-2.3) mg/dL Total Bilirubin (0.2-1.3) mg/dL AST (17-59) U/L ALT (4-49) U/L Alkaline Phosphatase (38-126) U/L Troponin I (0.000-0.034) ng/mL Total Protein (6.3-8.2) g/dL Albumin (3.5-5.0) g/dL Disposition Clinical Impression: Chest pain, Palpitations, Dyspnea Disposition: ADMITTED IP TO THIS HOSP Is patient prescribed a controlled substance at d/c from ED?: No Referrals: Yara Wong MD [Primary Care Provider] - 1-2 days Time of Disposition: 20:40
[2022-07-21] MEDS ORDERED: MAG HYDROX/AL HYDROX/SIMETH 30 ML, HYOSCYAMINE ELIXIR 10 ML PO STA ×2 (19:09)
[2022-07-21 19:42] LABS: Basophils % (A) 0 %; Eosinophils % (A) 0 %; HCT 40.3 % (39.0-53.0); Lymphocytes # (A) 0.7 k/uL (1.0-4.8); Lymphocytes % (A) 7 %; MCH 31.3 pg (25.0-35.0); MCHC 34.6 g/dL (31.0-37.0); MCV 90.5 fL (80.0-100.0); Mean Platelet Volume 7.4; Monocytes # (A) 0.6 k/uL (0-1.0); Monocytes % (A) 5 %; Neutrophils % (A) 86 %; Platelet Count 188 k/uL (150-450); RBC 4.45 m/uL (4.30-5.90); RDW 13.1 % (11.5-15.5); WBC 10.4 k/uL (3.8-10.6)
--- NOTE | 2022-07-21 19:46 | CT ---
EXAMINATION TYPE: CT chest angio for PE DATE OF EXAM: 07/21/2022 COMPARISON: None HISTORY: high BP, chest pain CT DLP: 420.6 mGycm Automated exposure control for dose reduction was used. CONTRAST: Performed with IV Contrast, patient injected with 100 mL of Isovue 370. There are 3-D post processed images. There is some diffuse pulmonary emphysema. No pneumothorax. No mediastinal adenopathy. There are no h ilar masses. The thoracic aorta is intact. No aneurysm or dissection. Heart size is normal. No pericardial effusion. There is normal contrast opacification of the pulmonary arteries. No filling defect. The thoracic spine is intact. No compression fracture. Sternum is intact. IMPRESSION: Subsegmental atelectasis at the lung bases. Pulmonary emphysema. No evidence of pulmonary embolism.
[2022-07-21] MEDS ORDERED: NITROGLYCERIN SL TABS 0.4 MG TAB SUBLINGUAL PRN (20:41)
[2022-07-21] MEDS: NITROGLYCERIN OINT 1 INCH/GM PACKET TOPICAL SCH (23:22)
[2022-07-22] MEDS: NITROGLYCERIN OINT 1 INCH/GM PACKET TOPICAL SCH (06:45)
[2022-07-22 08:24] VITALS: RESP 20
[2022-07-22] MEDS ORDERED: ASPIRIN 81 MG PO SCH (09:00)
[2022-07-22] MEDS ORDERED: METOPROLOL TARTRATE 25 MG TAB PO SCH (09:00)
[2022-07-22] MEDS ORDERED: ASPIRIN 325 MG TAB PO SCH (09:00)
[2022-07-22] MEDS ORDERED: PANTOPRAZOLE 40 MG TABLET PO SCH (09:00)
[2022-07-22] MEDS ORDERED: ISOSORBIDE MONONITRATE ER 30 MG TAB.ER.24H PO SCH (09:00)
[2022-07-22 10:27] LABS: Chol/HDL Ratio 4.84 Ratio; LDL Cholesterol,Calculated 129.9 mg/dL (0.0-131.0)
--- NOTE | 2022-07-22 10:27 | P.CRDCN ---
History of Present Illness Consult date: 07/22/22 History of present illness: Patient is a 62-year-old male patient of Dr. Fonseca with past medical history of neurological issues with left sided facial numbness, headache dizziness and vertigo sensation being worked up by neurology, headache, chest pain not clearly anginal, history of coronary artery disease with prior PCI done in [place], mild coronary artery disease on heart catheterization, COPD, hypertension, hyperlipidemia, history of Covid infection a couple months ago. We have been asked to see the patient due to palpitations and chest pain. Patient states that he has not been feeling well for a couple of days and his checked his pulse ox and found his heart rate was 160. He also found that his blood pressure was elevated. He complains of a left upper chest ache goes sometimes into the upper arm and shoulder. He also complains of heartburn which was quite severe yesterday. He states he's had lightheadedness and dizziness all the time since he had Covid and is being worked up by Dr. Mavis Horn and he has been instructed to follow-up with ophthalmology. He complains of a dry cough and some shortness of breath. He states he has occasional fever. Patient was last seen in the office on 07/08/2022 and at that time, patient was placed on event monitor to rule out arrhythmias causing chest pain and also was instructed to stop ranolazine which he states he has done. Patient states he has completed wearing the monitor and needs to send monitor into the company. EKG sinus tachycardia 124 bpm. Telemetry has been a sinus rhythm in the 80s. Chest x-ray no acute findings, possible COPD. CTA of the chest: Subsegmental atelectasis lung bases. Pulmonary emphysema. No PE. CBC within normal limits. Potassium 5, BUN 11 and creatinine 0.73. Blood sugar 143. D-dimer 0.65. Troponin negative 3. ALT 52. BNP 51 Echocardiogram 04/2022 revealed EF of 50-55% with mild TR Cardiac catheterization performed on 06/30/2022 revealed mild coronary artery disease with 20-30% circumflex in 10-20% LAD stenosis with patent nondominant RCA stent. Mildly elevated left sided filling pressures. Cardiac medications: Aspirin 81 mg daily, Lipitor 80 mg at bedtime, Imdur 90 mg daily, Lopressor 25 mg twice daily, Nitrostat sublingual as needed Review Of Systems: At the time of my evaluation: Constitutional: Reports occasional fever, no chills. generalized weakness and vague "not feeling well." EENT: No headache. No dizziness. Lungs: Reports shortness of breath, cough, no sputum production. No wheezing. Cardiovascular: Reports chest pain, no lower extremity edema. No palpitations. No paroxysmal nocturnal dyspnea. No orthopnea. Reports chronic lightheadedness or dizziness. No syncopal episodes. Abdominal: No abdominal pain. No nausea, vomiting. No diarrhea. No constipation. No bloody or tarry stools. Reports heartburn Genitourinary: No dysuria. No urinary retention. Musculoskeletal: No myalgias. No muscle weakness, no frequent falls. No back pain. No neck pain. Integumentary: No wounds. No rash. No unusual bruising. Neurologic: No aphasia. No facial droop. No change in mentation. No head injury. No headache. Psychiatric: No depression. No anxiety. EXAMINATION: GENERAL: Well-appearing, well-nourished and in no acute distress. NECK: Supple without JVD or thyromegaly. LUNGS: Breath sounds clear to auscultation bilaterally. Respiration equal and unlabored. No wheezes, rales or rhonchi. HEART: Regular rate and rhythm without murmurs, rubs or gallops. S1 and S2 heard. EXTREMITIES: Normal range of motion, no edema. No clubbing or cyanosis. Peripheral pulses intact and strong. IMPRESSION: Palpitations SVT History of coronary artery disease COPD Hypertension Hyperlipidemia Chronic neurological symptoms being worked up by Dr. Atkins PLAN: Resume patient's home cardiac medications Event monitor will be reviewed. Patient will need to send into the company. No further cardiac workup is necessary at this time Patient may take Tylenol and occasional Motrin as needed for chest pain Increase activity Patient is cleared from cardiology for discharge home in october follow-up in the office in one week with Dr. Fonseca. Thank you for the consult and allowing us to participate in the care of this patient. Past Medical History Past Medical History: Chest Pain / Angina, COPD, CVA/TIA, GERD/Reflux, Hyperlipidemia, Hypertension, Myocardial Infarction ([place]) Additional Past Medical History / Comment(s): COVID April 2022, multiple MIs, TIA, peripheral vision loss of left eye Last Myocardial Infarction Date:: 2020 History of Any Multi-Drug Resistant Organisms: None Reported Past Surgical History: Heart Catheterization With Stent Additional Past Surgical History / Comment(s): 2 cardiac stents Past Anesthesia/Blood Transfusion Reactions: No Reported Reaction Date of Last Stent Placement:: 2020 Past Psychological History: No Psychological Hx Reported Smoking Status: Former smoker Past Alcohol Use History: None Reported Past Drug Use History: None Reported - Past Family History Father Family Medical History: Myocardial Infarction ([place]) Brother(s) Family Medical History: Myocardial Infarction ([place]) Medications and Allergies Home Medications Medication Instructions Recorded Confirmed Type Atorvastatin Calcium [Lipitor] 80 mg PO HS 04/26/22 07/21/22 History FLUoxetine HCL [PROzac] 20 mg PO DAILY 04/26/22 07/21/22 History FLUoxetine HCL [PROzac] 40 mg PO DAILY 04/26/22 07/21/22 History Famotidine [Pepcid] 40 mg PO DAILY 04/26/22 07/21/22 History Isosorbide Mononitrate ER [Imdur] 90 mg PO DAILY 04/26/22 07/21/22 History Lansoprazole [Prevacid] 30 mg PO DAILY 04/26/22 07/21/22 History Metoprolol Tartrate [Lopressor] 25 mg PO BID 04/26/22 07/21/22 History Nitroglycerin Sl Tabs [Nitrostat] 0.4 mg SUBLINGUAL Q5M PRN 04/26/22 07/21/22 History Pantoprazole Sodium 40 mg PO BID 04/26/22 07/21/22 History rOPINIRole HCL [Requip] 0.5 mg PO TID 04/26/22 07/21/22 History Acetaminophen Tab [Tylenol] 650 mg PO Q4HR PRN tab 04/30/22 07/21/22 Rx Albuterol Inhaler [Ventolin Hfa 2 puff INHALATION RT-QID 30 Days 04/30/22 07/21/22 Rx Inhaler] #1 each Cholecalciferol [Vitamin D3 (125 125 mcg PO DAILY 30 Days #30 tab 04/30/22 07/21/22 Rx Mcg = 5000 Iu)] Aspirin 81 mg PO DAILY #30 tab 05/14/22 07/21/22 Rx Folic Acid 1 mg PO DAILY #30 tab 05/14/22 07/21/22 Rx Meclizine [Antivert] 12.5 mg PO TID #30 tab 05/14/22 07/21/22 Rx Topiramate [Topamax] 50 mg PO BID #60 tab 05/14/22 07/21/22 Rx Ascorbic Acid [Vitamin C] 1,000 mg PO DAILY 07/21/22 07/21/22 History Cyanocobalamin (Vitamin B-12) 1,000 mcg PO DAILY 07/21/22 07/21/22 History [Vitamin B-12] Allergies Allergy/AdvReac Type Severity Reaction Status Date / Time codeine Allergy Swelling Verified 07/21/22 22:09 Physical Exam Vitals: Vital Signs Temp Pulse Pulse Resp BP BP Pulse Ox 07/22/22 04:00 97.8 F 82 17 124/74 93 L 07/22/22 02:00 81 17 07/22/22 00:38 86 18 07/22/22 00:00 97.5 F L 86 18 145/91 95 07/21/22 23:27 97.8 F 109 H 17 142/92 96 07/21/22 21:34 100 17 145/96 100 07/21/22 20:19 97.6 F 96 17 142/95 93 L 07/21/22 19:00 104 H 18 150/94 95 07/21/22 18:00 106 H 18 125/98 95 07/21/22 16:47 112 H 18 158/103 94 L 07/21/22 15:42 116 H 116 H 18 138/96 95 07/21/22 15:04 97.4 F L 129 H 24 156/89 97 Intake and Output 07/21/22 07/22/22 07/22/22 22:59 06:59 14:59 Other: Weight 83.915 kg 83.915 kg Results 07/21/22 19:20 07/21/22 15:16 Cardiac Enzymes 07/21/22 07/21/22 07/21/22 Range/Units 15:16 15:16 19:15 AST 29 (17-59) U/L Troponin I <0.012 <0.012 (0.000-0.034) ng/mL 07/22/22 Range/Units 00:34 AST (17-59) U/L Troponin I <0.012 (0.000-0.034) ng/mL Coagulation 07/21/22 Range/Units 15:16 PT 9.5 (9.0-12.0) sec APTT 22.3 (22.0-30.0) sec CBC 07/21/22 Range/Units 19:20 WBC 10.4 (3.8-10.6) k/uL RBC 4.45 (4.30-5.90) m/uL Hgb 14.0 (13.0-17.5) gm/dL Hct 40.3 (39.0-53.0) % Plt Count 188 (150-450) k/uL Comprehensive Metabolic Panel 07/21/22 Range/Units 15:16 Sodium 138 (137-145) mmol/L Potassium 5.0 (3.5-5.1) mmol/L Chloride 105 (98-107) mmol/L Carbon Dioxide 23 (22-30) mmol/L BUN 11 (9-20) mg/dL Creatinine 0.73 (0.66-1.25) mg/dL Glucose 143 H (74-99) mg/dL Calcium 9.2 (8.4-10.2) mg/dL AST 29 (17-59) U/L ALT 52 H (4-49) U/L Alkaline Phosphatase 112 (38-126) U/L Total Protein 7.0 (6.3-8.2) g/dL Albumin 4.3 (3.5-5.0) g/dL Current Medications Generic Name Dose Route Start Last Admin Trade Name Freq PRN Reason Stop Dose Admin Aspirin 325 mg 07/22/22 09:00 Aspirin 325 Mg Tab PO DAILY [facility] Nitroglycerin 0.4 mg 07/21/22 20:41 Nitroglycerin Sl Tabs 0.4 Mg Tab SUBLINGUAL Q5M PRN Chest Pain Nitroglycerin 1 inch 07/22/22 00:00 07/22/22 06:45 Nitroglycerin Oint 1 Inch/Gm Packet TOPICAL 1 inch Q6HR [facility] Administration Intake and Output 07/21/22 07/22/22 07/22/22 22:59 06:59 14:59 Other: Weight 83.915 kg 83.915 kg 07/21/22 19:20 07/21/22 15:16
[2022-07-22 11:43] VITALS: BP 113/78; TEMP 97.7
[2022-07-22] MEDS ORDERED: IPRATROPIUM-ALBUTEROL 3 ML NEB INHALATION STA (13:51)
[2022-07-22 14:10] VITALS: PULSE 80
--- NOTE | 2022-07-22 14:22 | P.HPIM ---
History of Present Illness 62-year-old the male came in with compensative chest pressure-like sensation was evaluated by cardiology patient chest pain is noncardiac patient was comparing of epigastric and retrosternal burning sensation patient has history of gastric reflux disease patient is taking lansoprazole as well as Pepcid at home. Patient denied any fever chills. She does have history of COPD quit smoking patient does use 2 L of oxygen at home presently not wearing any oxygen here. REVIEW OF SYSTEMS: CONSTITUTIONAL: No fever, no malaise, no fatigue. HEENT: No recent visual problems or hearing problems. Denied any sore throat. CARDIOVASCULAR: No orthopnea, PND, no palpitations, no syncope. PULMONARY: No shortness of breath, no cough, no hemoptysis. GASTROINTESTINAL: No diarrhea, no nausea, no vomiting, no abdominal pain. NEUROLOGICAL: No headaches, no weakness, no numbness. HEMATOLOGICAL: Denies any bleeding or petechiae. GENITOURINARY: Denies any burning micturition, frequency, or urgency. MUSCULOSKELETAL/RHEUMATOLOGICAL: Denies any joint pain, swelling, or any muscle pain. ENDOCRINE: Denies any polyuria or polydipsia. The rest of the 14-point review of systems is negative. PHYSICAL EXAMINATION: GENERAL: The patient is alert and oriented x3, not in any acute distress. Well developed, well nourished. HEENT: Pupils are round and equally reacting to light. EOMI. No scleral icterus. No conjunctival pallor. Normocephalic, atraumatic. No pharyngeal erythema. No thyromegaly. CARDIOVASCULAR: S1 and S2 present. No murmurs, rubs, or gallops. PULMONARY: Diminished air entry into bilateral lung diana with minimal expiratory wheezing on exam ABDOMEN: Soft, nontender, nondistended, normoactive bowel sounds. No palpable organomegaly. MUSCULOSKELETAL: No joint swelling or deformity. EXTREMITIES: No cyanosis, clubbing, or pedal edema. NEUROLOGICAL: Gross neurological examination did not reveal any focal deficits. SKIN: No rashes. Assessment and plan -Chest pain rule out acute coronary syndromes, was evaluated by cardiology. Platelet cardiology patient will follow-up with cardiology as an outpatient. -Coronary artery disease COPD with mild acute exacerbation patient will be discharged on inhaled st eroids. -Hypertension -hyperlipidemia Patient is cleared for discharge from cardiology perspective patient will be discharged today for follow with PCP and cardiology as an outpatient Past Medical History Past Medical History: Chest Pain / Angina, COPD, CVA/TIA, GERD/Reflux, Hyperlipidemia, Hypertension, Myocardial Infarction ([place]) Additional Past Medical History / Comment(s): COVID April 2022, multiple MIs, TIA, peripheral vision loss of left eye Last Myocardial Infarction Date:: 2020 History of Any Multi-Drug Resistant Organisms: None Reported Past Surgical History: Heart Catheterization With Stent Additional Past Surgical History / Comment(s): 2 cardiac stents Past Anesthesia/Blood Transfusion Reactions: No Reported Reaction Date of Last Stent Placement:: 2020 Past Psychological History: No Psychological Hx Reported Smoking Status: Former smoker Past Alcohol Use History: None Reported Past Drug Use History: None Reported - Past Family History Father Family Medical History: Myocardial Infarction ([place]) Brother(s) Family Medical History: Myocardial Infarction ([place]) Medications and Allergies Home Medications Medication Instructions Recorded Confirmed Type Atorvastatin Calcium [Lipitor] 80 mg PO HS 04/26/22 07/21/22 History FLUoxetine HCL [PROzac] 20 mg PO DAILY 04/26/22 07/21/22 History FLUoxetine HCL [PROzac] 40 mg PO DAILY 04/26/22 07/21/22 History Isosorbide Mononitrate ER [Imdur] 90 mg PO DAILY 04/26/22 07/21/22 History Lansoprazole [Prevacid] 30 mg PO DAILY 04/26/22 07/21/22 History Metoprolol Tartrate [Lopressor] 25 mg PO BID 04/26/22 07/21/22 History Nitroglycerin Sl Tabs [Nitrostat] 0.4 mg SUBLINGUAL Q5M PRN 04/26/22 07/21/22 History Pantoprazole Sodium 40 mg PO BID 04/26/22 07/21/22 History rOPINIRole HCL [Requip] 0.5 mg PO TID 04/26/22 07/21/22 History Acetaminophen Tab [Tylenol] 650 mg PO Q4HR PRN tab 04/30/22 07/21/22 Rx Albuterol Inhaler [Ventolin Hfa 2 puff INHALATION RT-QID 30 Days 04/30/22 07/21/22 Rx Inhaler] #1 each Cholecalciferol [Vitamin D3 (125 125 mcg PO DAILY 30 Days #30 tab 04/30/22 07/21/22 Rx Mcg = 5000 Iu)] Aspirin 81 mg PO DAILY #30 tab 05/14/22 07/21/22 Rx Folic Acid 1 mg PO DAILY #30 tab 05/14/22 07/21/22 Rx Meclizine [Antivert] 12.5 mg PO TID #30 tab 05/14/22 07/21/22 Rx Topiramate [Topamax] 50 mg PO BID #60 tab 05/14/22 07/21/22 Rx Ascorbic Acid [Vitamin C] 1,000 mg PO DAILY 07/21/22 07/21/22 History Cyanocobalamin (Vitamin B-12) 1,000 mcg PO DAILY 07/21/22 07/21/22 History [Vitamin B-12] Fluticasone Propion/Salmeterol 1 inhalation PO BID #1 each 07/22/22 Rx [Advair 250-50 Diskus] Mag Hydrox/Al Hydrox/Simeth 5 ml PO AC-TID #250 ml 07/22/22 Rx [Maalox] Tiotropium [place] [Spiriva] 1 puff IH DAILY #1 each 07/22/22 Rx Allergies Allergy/AdvReac Type Severity Reaction Status Date / Time codeine Allergy Swelling Verified 07/21/22 22:09 Physical Exam Vitals: Vital Signs Temp Pulse Pulse Resp BP BP Pulse Ox 07/22/22 14:17 80 07/22/22 14:07 80 07/22/22 11:35 97.7 F 79 20 113/78 94 L 07/22/22 08:28 96 07/22/22 08:23 97.6 F 88 20 150/82 96 07/22/22 04:00 97.8 F 82 17 124/74 93 L 07/22/22 02:00 81 17 07/22/22 00:38 86 18 07/22/22 00:00 97.5 F L 86 18 145/91 95 07/21/22 23:27 97.8 F 109 H 17 142/92 96 07/21/22 21:34 100 17 145/96 100 07/21/22 20:19 97.6 F 96 17 142/95 93 L 07/21/22 19:00 104 H 18 150/94 95 07/21/22 18:00 106 H 18 125/98 95 07/21/22 16:47 112 H 18 158/103 94 L 07/21/22 15:42 116 H 116 H 18 138/96 95 07/21/22 15:04 97.4 F L 129 H 24 156/89 97 Intake and Output 07/21/22 07/22/22 07/22/22 22:59 06:59 14:59 Other: Weight 83.915 kg 83.915 kg Results CBC & Chem 7: 07/21/22 19:20 07/21/22 15:16 Labs: Abnormal Lab Results - Last 24 Hours (Table) 07/21/22 07/21/22 07/21/22 Range/Units 15:16 15:16 19:20 Neutrophils # 9.0 H (1.3-7.7) k/uL Lymphocytes # 0.7 L (1.0-4.8) k/uL D-Dimer 0.65 H (<0.60) mg/L FEU Glucose 143 H (74-99) mg/dL ALT 52 H (4-49) U/L Triglycerides (0.00-149.00) mg/dL Cholesterol (0.00-200.00) mg/dL VLDL Cholesterol, Calc (5.00-40.00) mg/dL 07/22/22 Range/Units 06:52 Neutrophils # (1.3-7.7) k/uL Lymphocytes # (1.0-4.8) k/uL D-Dimer (<0.60) mg/L FEU Glucose (74-99) mg/dL ALT (4-49) U/L Triglycerides 227.00 H (0.00-149.00) mg/dL Cholesterol 221.00 H (0.00-200.00) mg/dL VLDL Cholesterol, Calc 45.40 H (5.00-40.00) mg/dL Thrombosis Risk Factor Assmnt - Choose All That Apply Each Factor Represents 1 point: Obesity (BMI >25) Each Risk Factor Represents 2 Points: Age 61-74 years Thrombosis Risk Factor Assessment Total Risk Factor Score: 3 Thrombosis Risk Factor Assessment Level: Moderate Risk
[2022-07-22] MEDS ORDERED: ATORVASTATIN 80 MG TAB PO SCH (21:00)
== END 2022-07-22 16:28 | disposition home or self-care (01) | DRG 313 ==
LOC: EC 15:02 → 3SCARD 20:41
PROVIDERS: ADMIT Internal Medicine; ATTEND Internal Medicine
DX: R07.9 Chest pain, unspecified (principal); I47.1 Supraventricular tachycardia; I25.110 Atherosclerotic heart disease of native coronary artery with unstable angina pectoris; J98.11 Atelectasis; J43.9 Emphysema, unspecified; E78.5 Hyperlipidemia, unspecified; I10 Essential (primary) hypertension; I25.2 Old myocardial infarction; H54.62 Unqualified visual loss, left eye, normal vision right eye; K21.9 Gastro-esophageal reflux disease without esophagitis; Z79.82 Long term (current) use of aspirin; Z79.899 Other long term (current) drug therapy; Z86.16 Personal history of COVID-19; Z87.891 Personal history of nicotine dependence; Z86.73 Personal history of transient ischemic attack (TIA), and cerebral infarction without residual deficits; Z95.5 Presence of coronary angioplasty implant and graft; Z88.5 Allergy status to narcotic agent; Z82.49 Family history of ischemic heart disease and other diseases of the circulatory system
CPT/HCPCS: 36415; 71046; 71275; 80053; 80061; 83735; 83880; 84484; 85025; 85379; 85610; 85730; 93005; 94640; 94760; 96374; 99285

== ENCOUNTER 2022-09-07 14:16 | Observation (INO) | payer OTHER ==
[2022-09-07 15:13] LABS: Basophils # (A) 0.1 k/uL (0-0.2); Basophils % (A) 1 %; Eosinophils # (A) 0.1 k/uL (0-0.7); Eosinophils % (A) 1 %; HCT 42.1 % (39.0-53.0); HGB 15.3 gm/dL (13.0-17.5); Lymphocytes # (A) 1.7 k/uL (1.0-4.8); Lymphocytes % (A) 16 %; MCH 32.1 pg (25.0-35.0); MCHC 36.2 g/dL (31.0-37.0); MCV 88.7 fL (80.0-100.0); Mean Platelet Volume 7.1; Monocytes # (A) 0.7 k/uL (0-1.0); Monocytes % (A) 6 %; Neutrophils # (A) 7.9 k/uL (1.3-7.7); Neutrophils % (A) 73 %; Platelet Count 319 k/uL (150-450); RBC 4.75 m/uL (4.30-5.90); WBC 10.8 k/uL (3.8-10.6)
[2022-09-07 15:23] LABS: ALT 34 U/L (4-49); African American GFR (CKD) >90 (>60 ml/min/1.73 sqM); Albumin 4.3 g/dL (3.5-5.0); Anion Gap 7 mmol/L; Blood Urea Nitrogen 18 mg/dL (9-20); Carbon Dioxide 25 mmol/L (22-30); Chloride 105 mmol/L (98-107); Glucose 101 mg/dL (74-99); Non-African American GFR(CKD) >90 (>60 ml/min/1.73 sqM); Sodium 137 mmol/L (137-145); Total Bilirubin 0.7 mg/dL (0.2-1.3); Total Protein 7.1 g/dL (6.3-8.2)
[2022-09-07 15:25] LABS: AST 29 U/L (17-59); Alkaline Phosphatase 93 U/L (38-126); Potassium 4.2 mmol/L (3.5-5.1)
[2022-09-07 15:34] LABS: Prothrombin Time 10.2 sec (9.0-12.0)
--- NOTE | 2022-09-07 15:39 | XR ---
EXAMINATION TYPE: XR chest 2V DATE OF EXAM: 09/07/2022 COMPARISON: 07/21/2022 HISTORY: Dysrhythmia TECHNIQUE: 2 views FINDINGS: There is mild subsegmental atelectasis at the left lung base. Heart size is normal. There a re no hilar masses. The bony thorax is intact. There are chest leads. No pleural effusion. IMPRESSION: Minimal subsegmental atelectasis at the left lung base. No significant change.
[2022-09-07 15:50] LABS: Partial Thromboplastin Time 21.8 sec (22.0-30.0)
--- NOTE | 2022-09-07 16:55 | ED ---
General Adult HPI - General Chief complaint: Chest Pain Stated complaint: hypertension Time Seen by Provider: 09/07/22 14:46 Source: patient, RN notes reviewed, old records reviewed Mode of arrival: ambulatory Limitations: no limitations - History of Present Illness Initial comments: 62-year-old male presenting for evaluation of cough, dyspnea, chest pain. Patient states he is currently being treated for pneumonia 80s on steroids, and to antibiotics. He states that he noticed that his blood pressure was somewhat elevated after starting these medications. He has a mild left-sided chest pain as well. No vomiting. No measured fever. - Related Data Home Medications Medication Instructions Recorded Confirmed Atorvastatin Calcium [Lipitor] 80 mg PO HS 04/26/22 09/07/22 FLUoxetine HCL [PROzac] 20 mg PO DAILY 04/26/22 09/07/22 FLUoxetine HCL [PROzac] 40 mg PO DAILY 04/26/22 09/07/22 Isosorbide Mononitrate ER [Imdur] 90 mg PO DAILY 04/26/22 09/07/22 Lansoprazole [Prevacid] 30 mg PO DAILY 04/26/22 09/07/22 Metoprolol Tartrate [Lopressor] 25 mg PO BID 04/26/22 09/07/22 Nitroglycerin Sl Tabs [Nitrostat] 0.4 mg SUBLINGUAL Q5M PRN 04/26/22 09/07/22 Pantoprazole Sodium 40 mg PO BID 04/26/22 09/07/22 rOPINIRole HCL [Requip] 0.5 mg PO TID 04/26/22 09/07/22 Ascorbic Acid [Vitamin C] 1,000 mg PO DAILY 07/21/22 09/07/22 Cyanocobalamin (Vitamin B-12) 1,000 mcg PO DAILY 07/21/22 09/07/22 [Vitamin B-12] Albuterol Inhaler [Ventolin Hfa 2 puff INHALATION RT-QID PRN 09/07/22 09/07/22 Inhaler] Amoxic-Pot Clav 875-125Mg 1 tab PO BID 09/07/22 09/07/22 [Augmentin 875-125] Doxycycline Hyclate 100 mg PO BID 09/07/22 09/07/22 Fluticasone Propion/Salmeterol 1 puff INHALATION RT-BID 09/07/22 09/07/22 [Advair 250-50 Diskus] Losartan [Cozaar] 25 mg PO DAILY 09/07/22 09/07/22 methylPREDNISolone [Medrol Dose See Taper PO DIRECTED 09/07/22 09/07/22 Pack] Previous Rx's Medication Instructions Recorded Acetaminophen Tab [Tylenol] 650 mg PO Q4HR PRN tab 04/30/22 Cholecalciferol [Vitamin D3 (125 125 mcg PO DAILY 30 Days #30 tab 04/30/22 Mcg = 5000 Iu)] Aspirin 81 mg PO DAILY #30 tab 05/14/22 Folic Acid 1 mg PO DAILY #30 tab 05/14/22 Meclizine [Antivert] 12.5 mg PO TID #30 tab 05/14/22 Tiotropium [place] [Spiriva] 1 puff IH DAILY #1 each 07/22/22 Allergies Allergy/AdvReac Type Severity Reaction Status Date / Time codeine Allergy Swelling Verified 09/07/22 15:33 Review of Systems ROS Statement: Those systems with pertinent positive or pertinent negative responses have been documented in the HPI. ROS Other: All systems not noted in ROS Statement are negative. Past Medical History Past Medical History: Chest Pain / Angina, COPD, CVA/TIA, GERD/Reflux, Hyperlipidemia, Hypertension, [place]ocardial Infarction ([place]) Additional Past Medical History / Comment(s): COVID April 2022, multiple MIs, TIA, peripheral vision loss of left eye Last Myocardial Infarction Date:: 2020 History of Any Multi-Drug Resistant Organisms: None Reported Past Surgical History: Heart Catheterization With Stent Additional Past Surgical History / Comment(s): 2 cardiac stents Past Anesthesia/Blood Transfusion Reactions: No Reported Reaction Date of Last Stent Placement:: 2020 Past Psychological History: No Psychological Hx Reported Smoking Status: Former smoker Past Alcohol Use History: None Reported Past Drug Use History: None Reported - Past Family History Father Family Medical History: Myocardial Infarction ([place]) Brother(s) Family Medical History: Myocardial Infarction ([place]) General Exam Limitations: no limitations General appearance: alert, in no apparent distress Head exam: Present: atraumatic, normocephalic Eye exam: Present: normal appearance, PERRL ENT exam: Present: normal exam Neck exam: Present: normal inspection. Absent: tenderness, meningismus Respiratory exam: Present: wheezes, chest wall tenderness, decreased breath sounds. Absent: respiratory distress Cardiovascular Exam: Present: regular rate, normal rhythm GI/Abdominal exam: Present: soft. Absent: distended, tenderness, guarding Extremities exam: Present: normal inspection, normal capillary refill. Absent: pedal edema Neurological exam: Present: alert, oriented X3, CN II-XII intact. Absent: motor sensory deficit Psychiatric exam: Present: normal affect, normal mood Skin exam: Present: warm, dry, intact. Absent: cyanosis, diaphoretic Course Vital Signs 09/07/22 14:40 Temperature 98.2 F Pulse Rate 84 Respiratory 18 Rate Blood Pressure 163/82 O2 Sat by Pulse 95 Oximetry EKG Findings - EKG Results: EKG: interpreted by ERMD (EKG: Sinus rhythm with ventricular is 79, AK interval 152, QRS duration 100, QTC 380, no ST segment elevation.) Medical Decision Making - Medical Decision Making Was pt. sent in by a medical professional or institution (, PA, [facility] [employer] [employer], urgent care, hospital, or [facility]...) When possible be specific @ -[No] Did you speak to anyone other than the patient for history (EMS, parent, family, police, friend...)? What history was obtained from this source @ -[No] Did you review nursing and triage notes (agree or disagree)? Why? @ -[I reviewed and agree with nursing and triage notes] Were old charts reviewed (outside hosp., previous admission, EMS record, old EKG, old radiological studies, urgent care reports/EKG's, [facility] records)? Report findings @ -[No old charts were reviewed] Differential Diagnosis (chest pain, altered mental status, abdominal pain women, abdominal pain men, vaginal bleeding, weakness, fever, dyspnea, syncope, headache, dizziness, GI bleed, back pain, seizure, CVA, palpatations, mental health, musculoskeletal)? @ -Differential Dyspnea: Coronary syndrome, arrhythmia, tamponade, asthma, COPD, pulmonary embolism, pneumonia, pneumothorax, pulmonary effusion, anaphylaxis, diabetic ketoacidosis, flailed chest, pulmonary contusion, diaphragmatic rupture, anemia, neuromuscular, this is not meant to be an all-inclusive list. EKG interpreted by me (3pts min.). @ -[As above] X-rays interpreted by me (1pt min.). @ -Chest x-ray reviewed, no focal pneumonia, left lower atelectasis agree with radiologist dictation CT interpreted by me (1pt min.). @ -[None done] U/S interpreted by me (1pt. min.). @ -[None done] What testing was considered but not performed or refused? (CT, X-rays, U/S, labs)? Why? @ -[None] What meds were considered but not given or refused? Why? @ -[None] Did you discuss the management of the patient with other professionals (professionals i.e. , PA, [facility] [employer], lab, RT, psych nurse, social worker masters, plisse machine operator, teacher, agricultural technical officer, transplant case manager)? Give summary @ -[No] Was smoking cessation discussed for >3mins.? @ -[No] Was critical care preformed (if so, how long)? @ -[No] Were there social determinants of health that impacted care today? How? (Homelessness, low income, unemployed, alcoholism, drug addiction, transportation, low edu. Level, literacy, decrease access to med. care, snf, rehab)? @ -[No] Was there de-escalation of care discussed even if they declined (Discuss DNR or withdrawal of care, Hospice)? DNR status @ -[No] What co-morbidities impacted this encounter? (DM, HTN, Smoking, COPD, CAD, Cancer, CVA, ARF, Chemo, Hep., AIDS, mental health diagnosis, sleep apnea, morbid obesity)? @ -[None] Was patient admitted / discharged? Hospital course, mention meds given and route, prescriptions, significant lab abnormalities, going to OR and other pertinent info. @ -[62-year-old male presenting with cough dyspnea and chest pain. Chest pain is atypical related to cough. EKG does not show any definitive signs of ischemia. Troponin testing is negative. He has a mild leukocytosis. Normal electrolytes. He will be admitted for treatment of COPD exacerbation. Undiagnosed new problem with uncertain prognosis? @ -[No] Drug Therapy requiring intensive monitoring for toxicity (Heparin, Nitro, Insulin, Cardizem)? @ -[No] Were any procedures done? @ -[No] Diagnosis/symptom? @ -[COPD] Acute, or Chronic, or Acute on Chronic? @ -[Acute on chronic] Uncomplicated (without systemic symptoms) or Complicated (systemic symptoms)? @ -[default] Side effects of treatment? @ -[No] Exacerbation, Progression, or Severe Exacerbation? @ -[yes] Poses a threat to life or bodily function? How? (Chest pain, [place], [place], pneumonia, PE, COPD, DKA, ARF, appy, cholecystitis, CVA, Diverticulitis, Homicidal, Suicidal, threat to staff... and all critical care pts) @ -[Worsening respiratory distress, hypoxia] - Lab Data Result diagrams: 09/07/22 15:03 09/07/22 15:03 Lab Results 09/07/22 09/07/22 09/07/22 Range/Units 15:03 15:03 15:03 WBC 10.8 H (3.8-10.6) k/uL RBC 4.75 (4.30-5.90) m/uL Hgb 15.3 (13.0-17.5) gm/dL Hct 42.1 (39.0-53.0) % MCV 88.7 (80.0-100.0) fL MCH 32.1 (25.0-35.0) pg MCHC 36.2 (31.0-37.0) g/dL RDW 13.0 (11.5-15.5) % Plt Count 319 (150-450) k/uL MPV 7.1 Neutrophils % 73 % Lymphocytes % 16 % Monocytes % 6 % Eosinophils % 1 % Basophils % 1 % Neutrophils # 7.9 H (1.3-7.7) k/uL Lymphocytes # 1.7 (1.0-4.8) k/uL Monocytes # 0.7 (0-1.0) k/uL Eosinophils # 0.1 (0-0.7) k/uL Basophils # 0.1 (0-0.2) k/uL PT 10.2 (9.0-12.0) sec INR 1.0 (<1.2) APTT 21.8 L (22.0-30.0) sec Sodium 137 (137-145) mmol/L Potassium 4.2 (3.5-5.1) mmol/L Chloride 105 (98-107) mmol/L Carbon Dioxide 25 (22-30) mmol/L Anion Gap 7 mmol/L BUN 18 (9-20) mg/dL Creatinine 0.77 (0.66-1.25) mg/dL Est GFR (CKD-EPI)AfAm >90 (>60 ml/min/1.73 sqM) Est GFR (CKD-EPI)NonAf >90 (>60 ml/min/1.73 sqM) Glucose 101 H (74-99) mg/dL Plasma Lactic Acid [place] (0.7-2.0) mmol/L Calcium 9.0 (8.4-10.2) mg/dL Total Bilirubin 0.7 (0.2-1.3) mg/dL AST 29 (17-59) U/L ALT 34 (4-49) U/L Alkaline Phosphatase 93 (38-126) U/L Troponin I (0.000-0.034) ng/mL Total Protein 7.1 (6.3-8.2) g/dL Albumin 4.3 (3.5-5.0) g/dL 09/07/22 09/07/22 Range/Units 15:03 15:03 WBC (3.8-10.6) k/uL RBC (4.30-5.90) m/uL Hgb (13.0-17.5) gm/dL Hct (39.0-53.0) % MCV (80.0-100.0) fL MCH (25.0-35.0) pg MCHC (31.0-37.0) g/dL RDW (11.5-15.5) % Plt Count (150-450) k/uL MPV Neutrophils % % Lymphocytes % % Monocytes % % Eosinophils % % Basophils % % Neutrophils # (1.3-7.7) k/uL Lymphocytes # (1.0-4.8) k/uL Monocytes # (0-1.0) k/uL Eosinophils # (0-0.7) k/uL Basophils # (0-0.2) k/uL PT (9.0-12.0) sec INR (<1.2) APTT (22.0-30.0) sec Sodium (137-145) mmol/L Potassium (3.5-5.1) mmol/L Chloride (98-107) mmol/L Carbon Dioxide (22-30) mmol/L Anion Gap mmol/L BUN (9-20) mg/dL Creatinine (0.66-1.25) mg/dL Est GFR (CKD-EPI)AfAm (>60 ml/min/1.73 sqM) Est GFR (CKD-EPI)NonAf (>60 ml/min/1.73 sqM) Glucose (74-99) mg/dL Plasma Lactic Acid [place] 1.5 (0.7-2.0) mmol/L Calcium (8.4-10.2) mg/dL Total Bilirubin (0.2-1.3) mg/dL AST (17-59) U/L ALT (4-49) U/L Alkaline Phosphatase (38-126) U/L Troponin I <0.012 (0.000-0.034) ng/mL Total Protein (6.3-8.2) g/dL Albumin (3.5-5.0) g/dL Disposition Clinical Impression: Acute exacerbation of chronic obstructive pulmonary disease, Chest pain Disposition: ADMITTED IP TO THIS HOSP Condition: Stable Is patient prescribed a controlled substance at d/c from ED?: No Referrals: Yara Wong MD [Primary Care Provider] - 1-2 days Time of Disposition: 17:21
[2022-09-07] MEDS ORDERED: NALOXONE 0.4 MG/ML 1 ML VIAL IVP PRN (17:16)
[2022-09-07] MEDS: SODIUM CHLORIDE 0.9% 1,000 ML IV SCH (18:36)
[2022-09-07] MEDS: IPRATROPIUM 0.5 MG/2.5 ML NEBU INHALATION SCH (19:20)
[2022-09-07] MEDS: ALBUTEROL NEBULIZED 2.5 MG/3 ML INHALATION SCH (19:20)
[2022-09-07] MEDS ORDERED: IPRATROPIUM-ALBUTEROL 3 ML NEB INHALATION SCH (20:00)
[2022-09-07] MEDS ORDERED: ACETAMINOPHEN TAB 325 MG TAB PO PRN (20:44)
[2022-09-07] MEDS ORDERED: ONDANSETRON 4 MG/2 ML VIAL IVP PRN (20:45)
[2022-09-07] MEDS: methylPREDNISolone SOD SUCCI 125 MG/2 ML VIAL IV SCH (22:31)
[2022-09-07] MEDS: METOPROLOL TARTRATE 25 MG TAB PO SCH (22:31)
[2022-09-07] MEDS: ATORVASTATIN 80 MG TAB PO SCH (22:31)
[2022-09-08] MEDS: SODIUM CHLORIDE 0.9% 1,000 ML IV SCH (06:00)
[2022-09-08] MEDS: IPRATROPIUM 0.5 MG/2.5 ML NEBU INHALATION SCH ×4 (07:44→19:28)
[2022-09-08] MEDS: ALBUTEROL NEBULIZED 2.5 MG/3 ML INHALATION SCH ×4 (07:44→19:28)
--- NOTE | 2022-09-08 08:56 | P.CRDCN ---
History of Present Illness Consult date: 09/08/22 Consult reason: chest pain History of present illness: Patient is a 62-year-old male patient of Dr. Fonseca with past medical history of neurological issues with left sided facial numbness, headache, dizziness and vertigo sensation being worked up by neurology, history of coronary artery disease with prior PCI done in [place], mild coronary artery disease on heart catheterization 06/2022, COPD, hypertension, hyperlipidemia, history of C ovid infection a couple months ago. We have been asked to see the patient due to chest pain. Patient gives history that he was diagnosed with pneumonia last week and started on antibiotics and a Medrol Dosepak. He states that he has a dry cough headache nausea and vomiting. Vomiting has been so severe that he has not been able to take his home medications and his blood pressure at home was 181/108. Upon arrival to the ER, patient's blood pressure was 163/82. Patient complains of dyspnea on exertion and difficulty walking to his mailbox and shortness of breath has been worsening over the last couple of days. He also has pain in the left side of his chest up into the left shoulder that has been more severe over the last couple of days. He also gives history of ongoing problems with vertigo which has been worked up by neurology and had a fall 3 times in one day. Patient recently had event monitor and he states that arrhythmia was ruled out when he followed up with Dr. Fonseca. Patient states that he quit smoking many years ago. EKG sinus rhythm with no acute ST changes Chest x-ray minimal subsegmental atelectasis at the left lung base. No significant change WBC 10.8, hemoglobin 15.3, platelet count 319. INR 1. Potassium 4.2 electrolytes and renal function within normal limits. Blood sugar 101. Liver function tests are normal. Troponin negative 1. ProBNP 33 Echocardiogram 04/2022 revealed EF of 50-55% with mild TR Cardiac catheterization performed on 06/30/2022 revealed mild coronary artery disease with 20-30% circumflex in 10-20% LAD stenosis with patent nondominant RCA stent. Mildly elevated left sided filling pressures. Cardiac medications: Aspirin 81 mg daily, Lipitor 80 mg at bedtime, Imdur 90 mg daily, losartan 25 mg daily, Lopressor 25 mg twice daily, Nitrostat sublingual as needed Review Of Systems: At the time of my evaluation: Constitutional: Denies fever, no chills. EENT: No headache. No dizziness. Lungs: Reports shortness of breath, reports dry cough, no sputum production. Reports wheezing. Reports dyspnea on exertion Cardiovascular: Reports chest pain left-sided to left shoulder, no lower extremity edema. Reports chronic palpitations. No paroxysmal nocturnal dyspnea. No orthopnea. Reports chronic lightheadedness or dizziness. Reports 3 recent syncopal episodes. Abdominal: No abdominal pain. Reports nausea, vomiting. No diarrhea. No constipation. No bloody or tarry stools. Musculoskeletal: No myalgias. No muscle weakness, reports frequent falls. No back pain. No neck pain. Integumentary: No wounds. No rash. No unusual bruising. Neurologic: No aphasia. No facial droop. No change in mentation. No head injury. No headache. EXAMINATION: Vital signs reviewed: Afebrile, heart rate 80s, blood pressure 135/75, pulse ox 95% on room air. GENERAL: Well-appearing, well-nourished and in no acute distress. NECK: Supple without JVD or thyromegaly. LUNGS: Breath sounds clear to auscultation bilaterally. Respiration equal and unlabored. Expiratory wheezes, no rales or rhonchi. HEART: Regular rate and rhythm without murmurs, rubs or gallops. S1 and S2 heard. EXTREMITIES: Normal range of motion, no edema. No clubbing or cyanosis. Peripheral pulses intact and strong. IMPRESSION: Cough, dyspnea on exertion Nausea vomiting and unable to keep medications down Left-sided chest pain, acute coronary syndrome ruled out with negative EKG and troponin History of coronary artery disease with mild disease on cardiac catheterization June 2022 COPD Hypertension Hyperlipidemia Chronic neurological symptoms being worked up by Dr. Atkins PLAN: Resume patient's home cardiac medications No plan for cardiac workup at this time. Patient is cleared from cardiology for discharge home and may follow-up in the office with Dr. Fonseca in one week. Thank you for the consult and allowing us to participate in the care of this patient. Past Medical History Past Medical History: Chest Pain / Angina, COPD, CVA/TIA, GERD/Reflux, Hyperlipidemia, Hypertension, Myocardial Infarction ([place]) Additional Past Medical History / Comment(s): COVID April 2022, multiple MIs, TIA, peripheral vision loss of left eye Last Myocardial Infarction Date:: 2020 History of Any Multi-Drug Resistant Organisms: None Reported Past Surgical History: Heart Catheterization With Stent Additional Past Surgical History / Comment(s): 2 cardiac stents Past Anesthesia/Blood Transfusion Reactions: No Reported Reaction Date of Last Stent Placement:: 2020 Past Psychological History: No Psychological Hx Reported Smoking Status: Former smoker Past Alcohol Use History: None Reported Past Drug Use History: None Reported - Past Family History Father Family Medical History: Myocardial Infarction ([place]) Brother(s) Family Medical History: Myocardial Infarction ([place]) Medications and Allergies Home Medications Medication Instructions Recorded Confirmed Type Atorvastatin Calcium [Lipitor] 80 mg PO HS 04/26/22 09/07/22 History FLUoxetine HCL [PROzac] 20 mg PO DAILY 04/26/22 09/07/22 History FLUoxetine HCL [PROzac] 40 mg PO DAILY 04/26/22 09/07/22 History Isosorbide Mononitrate ER [Imdur] 90 mg PO DAILY 04/26/22 09/07/22 History Lansoprazole [Prevacid] 30 mg PO DAILY 04/26/22 09/07/22 History Metoprolol Tartrate [Lopressor] 25 mg PO BID 04/26/22 09/07/22 History Nitroglycerin Sl Tabs [Nitrostat] 0.4 mg SUBLINGUAL Q5M PRN 04/26/22 09/07/22 History Pantoprazole Sodium 40 mg PO BID 04/26/22 09/07/22 History rOPINIRole HCL [Requip] 0.5 mg PO TID 04/26/22 09/07/22 History Acetaminophen Tab [Tylenol] 650 mg PO Q4HR PRN tab 04/30/22 09/07/22 Rx Cholecalciferol [Vitamin D3 (125 125 mcg PO DAILY 30 Days #30 tab 04/30/22 09/07/22 Rx Mcg = 5000 Iu)] Aspirin 81 mg PO DAILY #30 tab 05/14/22 09/07/22 Rx Folic Acid 1 mg PO DAILY #30 tab 05/14/22 09/07/22 Rx Meclizine [Antivert] 12.5 mg PO TID #30 tab 05/14/22 09/07/22 Rx Ascorbic Acid [Vitamin C] 1,000 mg PO DAILY 07/21/22 09/07/22 History Cyanocobalamin (Vitamin B-12) 1,000 mcg PO DAILY 07/21/22 09/07/22 History [Vitamin B-12] Tiotropium [place] [Spiriva] 1 puff IH DAILY #1 each 07/22/22 09/07/22 Rx Albuterol Inhaler [Ventolin Hfa 2 puff INHALATION RT-QID PRN 09/07/22 09/07/22 History Inhaler] Amoxic-Pot Clav 875-125Mg 1 tab PO BID 09/07/22 09/07/22 History [Augmentin 875-125] Doxycycline Hyclate 100 mg PO BID 09/07/22 09/07/22 History Fluticasone Propion/Salmeterol 1 puff INHALATION RT-BID 09/07/22 09/07/22 History [Advair 250-50 Diskus] Losartan [Cozaar] 25 mg PO DAILY 09/07/22 09/07/22 History methylPREDNISolone [Medrol Dose See Taper PO DIRECTED 09/07/22 09/07/22 History Pack] Allergies Allergy/AdvReac Type Severity Reaction Status Date / Time codeine Allergy Swelling Verified 09/07/22 15:33 Physical Exam Vitals: Vital Signs Temp Pulse Pulse Resp BP BP Pulse Ox 09/08/22 07:45 95 09/08/22 07:28 98.0 F 81 17 135/75 94 L 09/08/22 02:30 97.9 F 89 17 152/75 95 09/07/22 20:10 98.6 F 71 18 145/73 100 09/07/22 19:38 98.2 F 76 18 150/72 97 09/07/22 19:36 68 09/07/22 19:22 66 09/07/22 17:20 71 18 151/92 97 09/07/22 14:40 98.2 F 84 18 163/82 95 Intake and Output 09/07/22 09/08/22 09/08/22 22:59 06:59 14:59 Other: # Voids 1 Weight 84.822 kg Results 09/07/22 15:03 09/07/22 15:03 Cardiac Enzymes 09/07/22 09/07/22 Range/Units 15:03 15:03 AST 29 (17-59) U/L Troponin I <0.012 (0.000-0.034) ng/mL Coagulation 09/07/22 Range/Units 15:03 PT 10.2 (9.0-12.0) sec APTT 21.8 L (22.0-30.0) sec CBC 09/07/22 Range/Units 15:03 WBC 10.8 H (3.8-10.6) k/uL RBC 4.75 (4.30-5.90) m/uL Hgb 15.3 (13.0-17.5) gm/dL Hct 42.1 (39.0-53.0) % Plt Count 319 (150-450) k/uL Comprehensive Metabolic Panel 09/07/22 Range/Units 15:03 Sodium 137 (137-145) mmol/L Potassium 4.2 (3.5-5.1) mmol/L Chloride 105 (98-107) mmol/L Carbon Dioxide 25 (22-30) mmol/L BUN 18 (9-20) mg/dL Creatinine 0.77 (0.66-1.25) mg/dL Glucose 101 H (74-99) mg/dL Calcium 9.0 (8.4-10.2) mg/dL AST 29 (17-59) U/L ALT 34 (4-49) U/L Alkaline Phosphatase 93 (38-126) U/L Total Protein 7.1 (6.3-8.2) g/dL Albumin 4.3 (3.5-5.0) g/dL Current Medications Generic Name Dose Route Start Last Admin Trade Name Freq PRN Reason Stop Dose Admin Acetaminophen 650 mg 09/07/22 20:44 09/07/22 22:32 Acetaminophen Tab 325 Mg Tab PO 650 mg Q4HR PRN Administration Mild Pain or Fever > 100.5 Albuterol Sulfate 2.5 mg 09/07/22 20:00 09/08/22 07:44 Albuterol Nebulized 2.5 Mg/3 Ml INHALATION Not Given RT-QID MAIKEL Aspirin 81 mg 09/08/22 09:00 Aspirin 81 Mg PO DAILY MAIKEL Atorvastatin Calcium 80 mg 09/07/22 21:00 09/07/22 22:31 Atorvastatin 80 Mg Tab PO 80 mg HS MAIKEL Administration Sodium Chloride 1,000 mls @ 75 mls/hr 09/07/22 17:30 09/08/22 06:00 Saline 0.9% IV 75 mls/hr .[id number] MAIKEL Administration Ipratropium [place] 0.5 mg 09/07/22 20:00 09/08/22 07:44 Ipratropium 0.5 Mg/2.5 Ml Nebu INHALATION Not Given RT-QID [facility] Isosorbide Mononitrate 90 mg 09/08/22 09:00 Isosorbide Mononitrate Er 30 Mg Tab.Er.24h PO DAILY [facility] Losartan Potassium 25 mg 09/08/22 09:00 Losartan 25 Mg Tab PO DAILY [facility] Methylprednisolone Sodium Succinate 60 mg 09/07/22 22:00 09/07/22 22:31 Methylprednisolone Sod Succi 125 Mg/2 Ml Vial IV 60 mg TID [facility] Administration Metoprolol Tartrate 25 mg 09/07/22 21:00 09/07/22 22:31 Metoprolol Tartrate 25 Mg Tab PO 25 mg BID [facility] Administration Naloxone HCl 0.2 mg 09/07/22 17:16 Naloxone 0.4 Mg/Ml 1 Ml Vial IVP Q2M PRN Opioid Reversal Ondansetron HCl 4 mg 09/07/22 20:45 09/07/22 22:30 Ondansetron 4 Mg/2 Ml Vial IVP 4 mg Q6HR PRN Administration Nausea And Vomiting Ropinirole HCl 0.5 mg 09/07/22 22:00 09/07/22 22:30 Ropinirole Hcl 0.25 Mg Tab PO 0.5 mg TID [facility] Administration Intake and Output 09/07/22 09/08/22 09/08/22 22:59 06:59 14:59 Other: # Voids 1 Weight 84.822 kg 09/07/22 15:03 09/07/22 15:03
[2022-09-08] MEDS: methylPREDNISolone SOD SUCCI 125 MG/2 ML VIAL IV SCH ×3 (09:59→20:47)
[2022-09-08] MEDS: ASPIRIN 81 MG PO SCH (09:59)
[2022-09-08] MEDS: LOSARTAN 25 MG TAB PO SCH (09:59)
[2022-09-08] MEDS: ISOSORBIDE MONONITRATE ER 30 MG TAB.ER.24H PO SCH (09:59)
[2022-09-08] MEDS: METOPROLOL TARTRATE 25 MG TAB PO SCH ×2 (10:09→20:53)
[2022-09-08] MEDS ORDERED: ALBUTEROL NEBULIZED 2.5 MG/3 ML INHALATION PRN (13:12)
[2022-09-08] MEDS ORDERED: FLUoxetine HCL 20 MG CAP PO SCH (13:15)
[2022-09-08] MEDS ORDERED: NON FORMULARY DRUG (Tiotropium Bromide [Spiriva Handihaler] 18 MCG Cap.W.Dev) IH SCH (13:15)
--- NOTE | 2022-09-08 13:35 | HP ---
HISTORY AND PHYSICAL This is a combined history and physical and discharge summary. CHIEF COMPLAINT: Chest pain. HISTORY OF PRESENT ILLNESS: This is a 62-year-old gentleman with a past medical history of COPD, was admitted with chest pain and the patient apparently had pneumonia last week and was on antibiotic and Medrol Dosepak. The patient has some dry cough. The chest pain was on the left side with left shoulder and Cardiology saw the patient and recommended possible outpatient evaluation. I have also recommended pulmonary evaluation and the chest x-ray did not show any acute abnormality except some subsegmental atelectasis. Pulmonology cleared the patient. The patient will be discharged home. There is no history of fever, rigors, chills. PAST MEDICAL HISTORY: Reviewed includes COPD. Rest of the history reviewed. Rest of the chart is also reviewed. HOME MEDICATIONS: Reviewed include Spiriva, rest of the home medications and doses are reviewed. ALLERGIES: Codeine. FAMILY HISTORY: History of myocardial infarction in family. SOCIAL HISTORY: Previous history of smoking. REVIEW OF SYSTEMS: A 14-point review is negative except as mentioned earlier. PHYSICAL EXAMINATION: VITAL SIGNS: Pulse 81, blood pressure 130/70, respirations 17. HEENT: Conjunctivae normal. NECK: No jugular venous distention. CARDIOVASCULAR: S1, S2 n RESPIRATIONS: Few scattered rhonchi and crackles. ABDOMEN: Soft. LABORATORY DATA: WBC 10.8. ASSESSMENT: 1. Chest pain, possible unstable angina, possibly musculoskeletal. Myocardial infarction ruled out. 2. Chronic obstructive pulmonary disease with recent pneumonia. 3. Hypertension. 4. Hyperlipidemia. 5. Multiple medical issues. RECOMMENDATIONS: This is a 62-year-old gentleman who presented with multiple complex medical issues. At this time, I recommend to continue the current medication. Recommend pulmonary consultation and if the pulmonary is clear, we would recommend the patient to resume the home medications and discharge home. Please refer to the medication sheet for discharge medications. I would also recommend antibiotics and short course of steroids and intensive bronchodilator treatment also. Once again, the patient is currently stable and further recommendations to follow. See orders for details. MMODL / IJN: [id number] / MTDD
[2022-09-08] MEDS: FLUoxetine HCL 20 MG CAP PO SCH (16:03)
[2022-09-08] MEDS: FOLIC ACID 1 MG TAB PO SCH (16:04)
[2022-09-08] MEDS: PANTOPRAZOLE 40 MG TABLET PO SCH (17:20)
[2022-09-08] MEDS: SYMBICORT 80-4.5 MCG INHALER INHALATION SCH (19:28)
[2022-09-08] MEDS: ATORVASTATIN 80 MG TAB PO SCH (20:48)
[2022-09-09] MEDS: PANTOPRAZOLE 40 MG TABLET PO SCH (06:08)
[2022-09-09 07:57] VITALS: BP 120/69; RESP 18; TEMP 97.5
[2022-09-09] MEDS: ASPIRIN 81 MG PO SCH (08:27)
[2022-09-09] MEDS: ISOSORBIDE MONONITRATE ER 30 MG TAB.ER.24H PO SCH (08:27)
[2022-09-09] MEDS: FLUoxetine HCL 20 MG CAP PO SCH (08:27)
[2022-09-09] MEDS: LOSARTAN 25 MG TAB PO SCH (08:28)
[2022-09-09] MEDS: FOLIC ACID 1 MG TAB PO SCH (08:28)
[2022-09-09] MEDS: METOPROLOL TARTRATE 25 MG TAB PO SCH (08:28)
[2022-09-09] MEDS ORDERED: CYANOCOBALAMIN 500 MCG TAB PO SCH (09:00)
[2022-09-09] MEDS ORDERED: predniSONE 20 MG TAB PO SCH (09:00)
[2022-09-09] MEDS ORDERED: CHOLECALCIFEROL 125 MCG (5000 IU) TABLET PO SCH (09:00)
[2022-09-09] MEDS: ALBUTEROL NEBULIZED 2.5 MG/3 ML INHALATION SCH (09:14)
[2022-09-09] MEDS: SYMBICORT 80-4.5 MCG INHALER INHALATION SCH (09:14)
[2022-09-09] MEDS: IPRATROPIUM 0.5 MG/2.5 ML NEBU INHALATION SCH (09:15)
[2022-09-09 09:31] VITALS: PULSE 72
--- NOTE | 2022-09-09 13:47 | P.CNPUL ---
History of Present Illness Consult date: 09/09/22 Requesting physician: Susan Saul Reason for consult: dyspnea, COPD Chief complaint: Chest pain History of present illness: This is a pleasant 62-year-old male patient with a known history of hypertension, hyperlipidemia, gastroesophageal reflux disease, depression, CVA/TIA, coronary disease with previous stent placement, former smoker. The patient does have chronic obstructive pulmonary disease with an FEV1 value 40% of predicted. He follows with Dr. Dobbs in our office. He presented here on 09/07/2022 with complaints of shortness of breath, cough, chest pain. His been treated in the outpatient setting with for pneumonia by his PCP and was on antibiotics and steroids. He noticed that his blood pressure was elevated and he had some left-sided chest discomfort. Chest x-ray showed minimal subsegmental segmental atelectasis in left lung base. No significant change compared to previous in June 2022. EKG revealed normal sinus rhythm without any ST or T wave abnormalities. White count 10.8. Hemoglobin 15.3. Sodium 137. Potassium 4.2. Bicarbonate 25. BUN 18. Creatinine 0.77. Troponin negative times one. ProBNP 33. Pro calcitonin pending. He is seen today in consultation on the regular medical floor. He is currently sitting up at the bedside. Awake and alert in no acute distress. No further chest discomfort. No worsening shortness of breath, cough or congestion. No hemoptysis. No fever or chills. He has been continued on Symbicort, albuterol, IV Solu-Medrol. Review of Systems REVIEW OF SYSTEMS: CONSTITUTIONAL: Denies any recent significant weight loss or weight gain. EYES: Denies change in vision. EARS, NOSE, MOUTH, THROAT: Denies headaches, denies sore throat. CARDIOVASCULAR: Positive for chest pain, no palpitations or syncopal episodes. RESPIRATORY: Positive for shortness of breath, cough, congestion no hemoptysis. GASTROINTESTINAL: Denies change in appetite, denies abdominal pain GENITOURINARY: Denies hematuria, denies infections. MUSKULOSKELETAL: Denies pain, denies swelling. INTEGUMENTARY: Denies rash, denies eczema. NEUROLOGICAL: Denies recent memory loss, no recent seizure activity. PSYCHIATRIC: Denies anxiety, denies depression. HEMATOLOGIC/LYMPHATIC: Denies anemia, denies enlarged lymph nodes. Past Medical History Past Medical History: Chest Pain / Angina, COPD, CVA/TIA, GERD/Reflux, Hyperlipidemia, Hypertension, Myocardial Infarction ([place]) Additional Past Medical History / Comment(s): COVID April 2022, multiple MIs, TIA, peripheral vision loss of left eye Last Myocardial Infarction Date:: 2020 History of Any Multi-Drug Resistant Organisms: None Reported Past Surgical History: Heart Catheterization With Stent Additional Past Surgical History / Comment(s): 2 cardiac stents Past Anesthesia/Blood Transfusion Reactions: No Reported Reaction Date of Last Stent Placement:: 2020 Past Psychological History: No Psychological Hx Reported Smoking Status: Former smoker Past Alcohol Use History: None Reported Past Drug Use History: None Reported - Past Family History Father Family Medical History: Myocardial Infarction ([place]) Brother(s) Family Medical History: Myocardial Infarction ([place]) Medications and Allergies Home Medications Medication Instructions Recorded Confirmed Type Atorvastatin Calcium [Lipitor] 80 mg PO HS 04/26/22 09/07/22 History FLUoxetine HCL [PROzac] 20 mg PO DAILY 04/26/22 09/07/22 History FLUoxetine HCL [PROzac] 40 mg PO DAILY 04/26/22 09/07/22 History Isosorbide Mononitrate ER [Imdur] 90 mg PO DAILY 04/26/22 09/07/22 History Lansoprazole [Prevacid] 30 mg PO DAILY 04/26/22 09/07/22 History Metoprolol Tartrate [Lopressor] 25 mg PO BID 04/26/22 09/07/22 History Nitroglycerin Sl Tabs [Nitrostat] 0.4 mg SUBLINGUAL Q5M PRN 04/26/22 09/07/22 History Pantoprazole Sodium 40 mg PO BID 04/26/22 09/07/22 History rOPINIRole HCL [Requip] 0.5 mg PO TID 04/26/22 09/07/22 History Acetaminophen Tab [Tylenol] 650 mg PO Q4HR PRN tab 04/30/22 09/07/22 Rx Cholecalciferol [Vitamin D3 (125 125 mcg PO DAILY 30 Days #30 tab 04/30/22 09/07/22 Rx Mcg = 5000 Iu)] Aspirin 81 mg PO DAILY #30 tab 05/14/22 09/07/22 Rx Folic Acid 1 mg PO DAILY #30 tab 05/14/22 09/07/22 Rx Meclizine [Antivert] 12.5 mg PO TID #30 tab 05/14/22 09/07/22 Rx Ascorbic Acid [Vitamin C] 1,000 mg PO DAILY 07/21/22 09/07/22 History Cyanocobalamin (Vitamin B-12) 1,000 mcg PO DAILY 07/21/22 09/07/22 History [Vitamin B-12] Tiotropium [place] [Spiriva 1 puff IH DAILY #1 each 07/22/22 09/07/22 Rx Handihaler] Albuterol Inhaler [Ventolin Hfa 2 puff INHALATION RT-QID PRN 09/07/22 09/07/22 History Inhaler] Fluticasone Propion/Salmeterol 1 puff INHALATION RT-BID 09/07/22 09/07/22 History [Advair 250-50 Diskus] Losartan [Cozaar] 25 mg PO DAILY 09/07/22 09/07/22 History Ipratropium Nebulized [Atrovent 0.5 mg INHALATION RT-QID #60 each 09/09/22 Rx Nebulized 0.2 MG/ML] predniSONE 10 mg PO DIRECTED #30 tab 09/09/22 Rx Allergies Allergy/AdvReac Type Severity Reaction Status Date / Time codeine Allergy Swelling Verified 09/07/22 15:33 Physical Exam Vitals: Vital Signs Temp Pulse Pulse Resp BP Pulse Ox 09/09/22 09:28 72 09/09/22 09:15 71 91 L 09/09/22 07:40 97.5 F L 68 18 120/69 95 09/09/22 02:43 98.2 F 76 16 94/55 93 L 09/09/22 02:00 16 09/08/22 20:00 107 H 16 09/08/22 19:47 76 09/08/22 19:29 76 09/08/22 18:54 97.5 F L 107 H 16 118/62 93 L 09/08/22 15:46 66 09/08/22 15:28 66 09/08/22 15:00 98.2 F 82 18 123/74 98 09/08/22 14:00 18 Intake and Output 09/08/22 09/09/22 09/09/22 22:59 06:59 14:59 Intake Total 518 118 Balance 518 118 Intake: Oral 518 118 Other: Voiding Method Toilet Toilet # Voids 1 2 GENERAL EXAM: Alert, active, pleasant 62-year-old male, on room air, comfortable in no apparent distress. HEAD: Normocephalic. EYES: Normal reaction of pupils, equal size. NOSE: Clear with pink turbinates. THROAT: No erythema or exudates. NECK: No masses, no JVD. CHEST: No chest wall deformity. LUNGS: Equal air entry with no crackles, wheeze, rhonchi or dullness. CVS: S1 and S2 normal with no audible murmur, regular rhythm. ABDOMEN: No hepatosplenomegaly, normal bowel sounds, no guarding or rigidity. SPINE: No scoliosis or deformity SKIN: No rashes CENTRAL NERVOUS SYSTEM: No focal deficits, tone is normal in all 4 extremities. EXTREMITIES: There is no peripheral edema. No clubbing, no cyanosis. Peripheral pulses are intact. Results - Laboratory Findings CBC and BMP: 09/07/22 15:03 09/07/22 15:03 PT/INR, D-dimer PT 10.2 sec (9.0-12.0) 09/07/22 15:03 INR 1.0 (<1.2) 09/07/22 15:03 Abnormal lab findings: Abnormal Labs 09/07/22 09/07/22 09/07/22 15:03 15:03 15:03 WBC 10.8 H Neutrophils # 7.9 H APTT 21.8 L Glucose 101 H - Diagnostic Findings Chest x-ray: image reviewed Assessment and Plan Assessment: Atypical chest pain, acute coronary syndrome ruled out Acute exacerbation of chronic obstructive pulmonary disease with unknown FEV1 value of 40% of predicted Former smoker History of coronary artery disease with previous stent placements Hypertension Hyperlipidemia Gastroesophageal reflux disease History of depression Plan: The patient was seen and evaluated Chest x-ray, labs and medications reviewed Table and on room air Cleared for discharge from pulmonary standpoint Continue his albuterol, Spiriva, Advair Follow up with Dr. Dobbs in the office in 1 week new I have personally seen and examined the patient, performed the documentation and the assessment and plan as written. Number of minutes spent on the visit: 20.
--- NOTE | 2022-09-10 21:06 | P.DS ---
Providers Date of admission: 09/07/22 17:17 Expected date of discharge: 09/09/22 Attending physician: Susan Saul Consults: 09/08/22 08:00 Consult Physician Urgent Consulting Provider: Te Fonseca Consult Reason/Comments: chest pain Do you want consulting provider notified?: Yes 09/08/22 10:51 Consult Physician Routine Consulting Provider: Peyton Grace Consult Reason/Comments: FAILED O.P. PNEUMONIA DIAGNOSIS Do you want consulting provider notified?: Yes Primary care physician: Yara Wong Hospital Course: Final diagnosis Chest pain, possible unstable angina, most likely musculoskeletal, myocardial infarction ruled out Chronic obstructive pulmonary disease with recent pneumonia, failure of outpatient treatment Hypertension Hyperlipidemia Obesity with a BMI of 30.2 Discharge disposition Patient is being discharged in a stable condition with guarded prognosis to home . Patient will follow-up with Dr. Wong in the outpatient setting upon discharge. Patient is to continue with prednisone taper and outpatient follow- up with pulmonary as scheduled. Patient to follow-up with cardiology outpatient as well. Total time taken is greater than 35 minutes. Hospital course This is a 62-year-old male who was recently admitted with chest pain, cough with some shortness of breath and being evaluated by cardiology along with pulmonary. Patient was recently started on Medrol Dosepak and antibiotics in the outpatient setting with failure of treatment with concerns of possible pneumonia. Patient was evaluated by pulmonary and will be given a prednisone taper and recommend outpatient follow-up. Patient has been cleared by cardiology for discharge and will follow-up in the outpatient setting as well. Encourage the patient to follow-up with primary care provider on discharge. Please refer to other consultation notes for further HPI. Currently no reports of chest pain, shortness of breath, or palpitations. Patient is afebrile. No reports of nausea or vomiting and patient is tolerating diet. Patient will be discharged home. Guarded prognosis. Physical exam: Gen: This is a 62-year-old male who is awake, alert and oriented 3, well- developed, well-nourished, obese HEENT: Head is atraumatic, normocephalic. Pupils equal, round. Sclerae is anicteric. NECK: Supple. No JVD. No lymphadenopathy. No thyromegaly. LUNGS: Diminished breath sounds bilaterally with some scattered rhonchi, faint expiratory wheezing noted. No intercostal retractions. HEART: S1, S2 are muffled ABDOMEN: Soft. Bowel sounds are present. No masses. No tenderness. EXTREMITIES: No pedal edema. No calf tenderness. NEUROLOGICAL: Patient is awake, alert and oriented x3. Cranial nerves 2 through 12 are grossly intact. Please refer to medication reconciliation sheet for a list of medications. The impression and plan of care has been dictated by Geovanna Vidal, Nurse Practitioner as directed. Dr. Aubrey MD I have performed a history and examination and MDM of this patient, discussed the same with the dictator, and agree with the dictator's assessment and plan as written ,documented as a scribe. Based on total visit time, I have performed more than 50% of the visit. Patient Condition at Discharge: Stable Plan - Discharge Summary New Discharge Prescriptions: New predniSONE 10 mg PO DIRECTED #30 tab Ipratropium Nebulized [Atrovent Nebulized 0.2 MG/ML] 0.5 mg INHALATION RT-QID #60 each Continue Isosorbide Mononitrate ER [Imdur] 90 mg PO DAILY FLUoxetine HCL [PROzac] 40 mg PO DAILY Nitroglycerin Sl Tabs [Nitrostat] 0.4 mg SUBLINGUAL Q5M PRN PRN Reason: Chest Pain rOPINIRole HCL [Requip] 0.5 mg PO TID Acetaminophen Tab [Tylenol] 650 mg PO Q4HR PRN tab PRN Reason: Mild Pain Or Fever > 100.5 Meclizine [Antivert] 12.5 mg PO TID #30 tab Folic Acid 1 mg PO DAILY #30 tab Tiotropium Warren [Spiriva Handihaler] 1 puff IH DAILY #1 each Albuterol Inhaler [Ventolin Hfa Inhaler] 2 puff INHALATION RT-QID PRN PRN Reason: Shortness Of Breath Metoprolol Tartrate [Lopressor] 25 mg PO BID Pantoprazole Sodium 40 mg PO BID Lansoprazole [Prevacid] 30 mg PO DAILY Atorvastatin Calcium [Lipitor] 80 mg PO HS FLUoxetine HCL [PROzac] 20 mg PO DAILY Cholecalciferol [Vitamin D3 (125 Mcg = 5000 Iu)] 125 mcg PO DAILY 30 Days #30 tab Aspirin 81 mg PO DAILY #30 tab Ascorbic Acid [Vitamin C] 1,000 mg PO DAILY Cyanocobalamin (Vitamin B-12) [Vitamin B-12] 1,000 mcg PO DAILY Fluticasone Propion/Salmeterol [Advair 250-50 Diskus] 1 puff INHALATION RT- BID Losartan [Cozaar] 25 mg PO DAILY Discontinued Amoxic-Pot Clav 875-125Mg [Augmentin 875-125] 1 tab PO BID methylPREDNISolone [Medrol Dose Pack] See Taper PO DIRECTED Doxycycline Hyclate 100 mg PO BID Discharge Medication List Atorvastatin Calcium [Lipitor] 80 mg PO HS 04/26/22 [History] FLUoxetine HCL [PROzac] 20 mg PO DAILY 04/26/22 [History] FLUoxetine HCL [PROzac] 40 mg PO DAILY 04/26/22 [History] Isosorbide Mononitrate ER [Imdur] 90 mg PO DAILY 04/26/22 [History] Lansoprazole [Prevacid] 30 mg PO DAILY 04/26/22 [History] Metoprolol Tartrate [Lopressor] 25 mg PO BID 04/26/22 [History] Nitroglycerin Sl Tabs [Nitrostat] 0.4 mg SUBLINGUAL Q5M PRN 04/26/22 [History] Pantoprazole Sodium 40 mg PO BID 04/26/22 [History] rOPINIRole HCL [Requip] 0.5 mg PO TID 04/26/22 [History] Acetaminophen Tab [Tylenol] 650 mg PO Q4HR PRN tab 04/30/22 [Rx] Cholecalciferol [Vitamin D3 (125 Mcg = 5000 Iu)] 125 mcg PO DAILY 30 Days #30 tab 04/30/22 [Rx] Aspirin 81 mg PO DAILY #30 tab 05/14/22 [Rx] Folic Acid 1 mg PO DAILY #30 tab 05/14/22 [Rx] Meclizine [Antivert] 12.5 mg PO TID #30 tab 05/14/22 [Rx] Ascorbic Acid [Vitamin C] 1,000 mg PO DAILY 07/21/22 [History] Cyanocobalamin (Vitamin B-12) [Vitamin B-12] 1,000 mcg PO DAILY 07/21/22 [History] Tiotropium Warren [Spiriva Handihaler] 1 puff IH DAILY #1 each 07/22/22 [Rx] Albuterol Inhaler [Ventolin Hfa Inhaler] 2 puff INHALATION RT-QID PRN 09/07/22 [History] Fluticasone Propion/Salmeterol [Advair 250-50 Diskus] 1 puff INHALATION RT-BID 09/07/22 [History] Losartan [Cozaar] 25 mg PO DAILY 09/07/22 [History] Ipratropium Nebulized [Atrovent Nebulized 0.2 MG/ML] 0.5 mg INHALATION RT-QID #60 each 09/09/22 [Rx] predniSONE 10 mg PO DIRECTED #30 tab 09/09/22 [Rx] Follow up Appointment(s)/Referral(s): Te Fonseca DO [STAFF PHYSICIAN] - As Needed Reece Dobbs DO [Doctor of Osteopathic Medicine] - 09/15/22 10:15 am Yara Wong MD [Primary Care Provider] - 1-2 days Activity/Diet/Wound Care/Special Instructions: Activity Limited until follow-up Follow-up with primary care provider on discharge Follow-up cardiology outpatient Follow-up pulmonary outpatient in one week Continue prednisone taper on discharge Discharge Disposition: HOME SELF-CARE
== END 2022-09-09 10:52 | disposition home or self-care (01) ==
LOC: EC 14:16 → 6NMEDSUR 17:17
PROVIDERS: ADMIT Internal Medicine; ATTEND Internal Medicine
DX: J44.1 Chronic obstructive pulmonary disease with (acute) exacerbation (principal); R03.0 Elevated blood-pressure reading, without diagnosis of hypertension; R07.9 Chest pain, unspecified; Z87.01 Personal history of pneumonia (recurrent); I10 Essential (primary) hypertension; E78.5 Hyperlipidemia, unspecified; E66.9 Obesity, unspecified; Z68.30 Body mass index [BMI] 30.0-30.9, adult; F32.A Depression, unspecified; R29.6 Repeated falls; Z95.5 Presence of coronary angioplasty implant and graft; Z87.891 Personal history of nicotine dependence; I25.10 Atherosclerotic heart disease of native coronary artery without angina pectoris; Z86.16 Personal history of COVID-19; I25.2 Old myocardial infarction; I69.312 Visuospatial deficit and spatial neglect following cerebral infarction; R29.90 Unspecified symptoms and signs involving the nervous system; Z82.49 Family history of ischemic heart disease and other diseases of the circulatory system; Z79.82 Long term (current) use of aspirin; Z79.899 Other long term (current) drug therapy; Z79.52 Long term (current) use of systemic steroids; Z79.51 Long term (current) use of inhaled steroids; Z88.5 Allergy status to narcotic agent
CPT/HCPCS: 96376; 96361 ×2; 96374; 96375; 99285; 36415; 94640 ×4; 94760 ×2; 93005; 83880; 80053; 83605; 84484; 85025; 85610; 85730; 71046; G0378 ×3; J2930 ×2; J2405; J7512

== ENCOUNTER 2022-09-18 10:59 | Inpatient (IN) | payer OTHER ==
[2022-09-18] MEDS ORDERED: IPRATROPIUM-ALBUTEROL 3 ML NEB INHALATION STA (11:41)
[2022-09-18] MEDS ORDERED: methylPREDNISolone SOD SUCCI 125 MG/2 ML VIAL IV STA (11:41)
--- NOTE | 2022-09-18 11:51 | ED ---
General Adult HPI - General Chief complaint: Shortness of Breath Stated complaint: SOB Time Seen by Provider: 09/18/22 11:29 Source: patient, RN notes reviewed Mode of arrival: ambulatory Limitations: no limitations - History of Present Illness Initial comments: This a 62-year-old male presents emergency Department chief complaint of shortness of breath. Patient states that he was recently hospitalized, discharged and has been on antibiotics and steroids. Symptoms of an worsening patient was sent today due to failure of outpatient treatment. Patient states he does see Dr. Dobbs patient has underlying COPD he is currently on antibiotics for pneumonia. Patient states that he been doing breathing treatments is taking barely get off his oxygen at home that he has for nighttime and when necessary use. He denies any significant leg pain or leg swelling. - Related Data Home Medications Medication Instructions Recorded Confirmed Atorvastatin Calcium [Lipitor] 80 mg PO HS 04/26/22 09/07/22 FLUoxetine HCL [PROzac] 20 mg PO DAILY 04/26/22 09/07/22 FLUoxetine HCL [PROzac] 40 mg PO DAILY 04/26/22 09/07/22 Isosorbide Mononitrate ER [Imdur] 90 mg PO DAILY 04/26/22 09/07/22 Lansoprazole [Prevacid] 30 mg PO DAILY 04/26/22 09/07/22 Metoprolol Tartrate [Lopressor] 25 mg PO BID 04/26/22 09/07/22 Nitroglycerin Sl Tabs [Nitrostat] 0.4 mg SUBLINGUAL Q5M PRN 04/26/22 09/07/22 Pantoprazole Sodium 40 mg PO BID 04/26/22 09/07/22 rOPINIRole HCL [Requip] 0.5 mg PO TID 04/26/22 09/07/22 Ascorbic Acid [Vitamin C] 1,000 mg PO DAILY 07/21/22 09/07/22 Cyanocobalamin (Vitamin B-12) 1,000 mcg PO DAILY 07/21/22 09/07/22 [Vitamin B-12] Albuterol Inhaler [Ventolin Hfa 2 puff INHALATION RT-QID PRN 09/07/22 09/07/22 Inhaler] Fluticasone Propion/Salmeterol 1 puff INHALATION RT-BID 09/07/22 09/07/22 [Advair 250-50 Diskus] Losartan [Cozaar] 25 mg PO DAILY 09/07/22 09/07/22 Previous Rx's Medication Instructions Recorded Acetaminophen Tab [Tylenol] 650 mg PO Q4HR PRN tab 04/30/22 Cholecalciferol [Vitamin D3 (125 125 mcg PO DAILY 30 Days #30 tab 04/30/22 Mcg = 5000 Iu)] Aspirin 81 mg PO DAILY #30 tab 05/14/22 Folic Acid 1 mg PO DAILY #30 tab 05/14/22 Meclizine [Antivert] 12.5 mg PO TID #30 tab 05/14/22 Tiotropium Macy [Spiriva 1 puff IH DAILY #1 each 07/22/22 Handihaler] Ipratropium Nebulized [Atrovent 0.5 mg INHALATION RT-QID #60 each 09/09/22 Nebulized 0.2 MG/ML] predniSONE 10 mg PO DIRECTED #30 tab 09/09/22 Allergies Allergy/AdvReac Type Severity Reaction Status Date / Time codeine Allergy Swelling Verified 09/18/22 11:23 Review of Systems ROS Statement: Those systems with pertinent positive or pertinent negative responses have been documented in the HPI. ROS Other: All systems not noted in ROS Statement are negative. Past Medical History Past Medical History: Chest Pain / Angina, COPD, CVA/TIA, GERD/Reflux, Hyperlipidemia, Hypertension, Myocardial Infarction ([place]) Additional Past Medical History / Comment(s): COVID April 2022, multiple MIs, TIA, peripheral vision loss of left eye Last Myocardial Infarction Date:: 2020 History of Any Multi-Drug Resistant Organisms: None Reported Past Surgical History: Heart Catheterization With Stent Additional Past Surgical History / Comment(s): 2 cardiac stents Past Anesthesia/Blood Transfusion Reactions: No Reported Reaction Date of Last Stent Placement:: 2020 Past Psychological History: No Psychological Hx Reported Smoking Status: Former smoker Past Alcohol Use History: None Reported Past Drug Use History: None Reported - Past Family History Father Family Medical History: Myocardial Infarction ([place]) Brother(s) Family Medical History: Myocardial Infarction ([place]) General Exam Limitations: no limitations General appearance: alert, in no apparent distress Head exam: Present: atraumatic, normocephalic, normal inspection Eye exam: Present: normal appearance, PERRL, EOMI. Absent: scleral icterus, conjunctival injection, periorbital swelling ENT exam: Present: normal exam, normal oropharynx, mucous membranes moist Neck exam: Present: normal inspection, full ROM. Absent: tenderness, meningismus, lymphadenopathy Respiratory exam: Present: respiratory distress, wheezes, decreased breath sounds, prolonged expiratory. Absent: normal lung sounds bilaterally, rales, rhonchi, stridor Cardiovascular Exam: Present: regular rate, normal rhythm, normal heart sounds. Absent: systolic murmur, diastolic murmur, rubs, gallop, clicks Extremities exam: Absent: pedal edema, calf tenderness Skin exam: Present: warm, dry, intact, normal color. Absent: rash Course Vital Signs 09/18/22 09/18/22 09/18/22 11:21 12:11 12:16 Temperature 97.8 F Pulse Rate 94 84 Respiratory 26 H Rate Blood Pressure 183/75 O2 Sat by Pulse 93 L 97 Oximetry 09/18/22 09/18/22 12:34 12:41 Temperature 96.9 F L Pulse Rate 88 88 Respiratory 20 Rate Blood Pressure 162/79 O2 Sat by Pulse 97 Oximetry EKG Findings - EKG Comments: EKG Findings:: EKG performed at 11:31 transfer the right of 87 W[place] 143/97 QT/QTC 345/390 - EKG Results: EKG: interpreted by ERMD Medical Decision Making - Medical Decision Making Was pt. sent in by a medical professional or institution ([facility] [place], SOLUTION DEVELOPER, urgent care, hospital, or prison...) When possible be specific @ -PCP Did you speak to anyone other than the patient for history (EMS, parent, family, police, friend...)? What history was obtained from this source @ -[No] Did you review nursing and triage notes (agree or disagree)? Why? @ -[I reviewed and agree with nursing and triage notes] Were old charts reviewed (outside hosp., previous admission, EMS record, old EKG, old radiological studies, urgent care reports/EKG's, prison records)? Report findings @ -[No old charts were reviewed] Differential Diagnosis (chest pain, altered mental status, abdominal pain women, abdominal pain men, vaginal bleeding, weakness, fever, dyspnea, syncope, headache, dizziness, GI bleed, back pain, seizure, CVA, palpatations, mental health, musculoskeletal)? @ -[Differential Dyspnea: Coronary syndrome, arrhythmia, tamponade, asthma, COPD, pulmonary embolism, pneumonia, pneumothorax, pulmonary effusion, anaphylaxis, diabetic ketoacidosis, flailed chest, pulmonary contusion, diaphragmatic rupture, anemia, neuromuscular, this is not meant to be an all-inclusive list. ] EKG interpreted by me (3pts min.). @ -[As above] X-rays interpreted by me (1pt min.). @ -[Chest x-ray shows COPD changes, no evidence of pneumonia] CT interpreted by me (1pt min.). @ -[None done] U/S interpreted by me (1pt. min.). @ -[None done] What testing was considered but not performed or refused? (CT, X-rays, U/S, labs)? Why? @ -[None] What meds were considered but not given or refused? Why? @ -[None] Did you discuss the management of the patient with other professionals (professionals i.e. , PA, SOLUTION DEVELOPER, lab, RT, psych nurse, neonatal social worker, divorce lawyer, teacher, learning officer, case investigator)? Give summary @ -[EMH for admission for COPD exacerbation with consult to pulmonology.] Was smoking cessation discussed for >3mins.? @ -[No] Was critical care preformed (if so, how long)? @ -[No] Were there social determinants of health that impacted care today? How? (Homelessness, low income, unemployed, alcoholism, drug addiction, transportation, low edu. Level, literacy, decrease access to med. care, shelter, rehab)? @ -[No] Was there de-escalation of care discussed even if they declined (Discuss DNR or withdrawal of care, Hospice)? DNR status @ -[No] What co-morbidities impacted this encounter? (DM, HTN, Smoking, COPD, CAD, Cancer, CVA, ARF, Chemo, Hep., AIDS, mental health diagnosis, sleep apnea, morbid obesity)? @ -[None] Was patient admitted / discharged? Hospital course, mention meds given and route, prescriptions, significant lab abnormalities, going to OR and other pertinent info. @ -[Admitted patient has COPD exacerbation, acute respiratory distress, patient was started on same mental, retention, antibiotics. Patient with consult to pulmonology.] Undiagnosed new problem with uncertain prognosis? @ -[No] Drug Therapy requiring intensive monitoring for toxicity (Heparin, Nitro, Insu van, Cardizem)? @ -[No] Were any procedures done? @ -[No] Diagnosis/symptom? @ -[COPD exacerbation] Acute, or Chronic, or Acute on Chronic? @ -[Acute on chronic] Uncomplicated (without systemic symptoms) or Complicated (systemic symptoms)? @ -[Complicated] Side effects of treatment? @ -[No] Exacerbation, Progression, or Severe Exacerbation? @ -[Exacerbation] Poses a threat to life or bodily function? How? (Chest pain, [place], [place], pneumonia, PE, COPD, DKA, ARF, appy, cholecystitis, CVA, Diverticulitis, Homicidal, Suicidal, threat to staff... and all critical care pts) @ -[yes patient has acute respiratory distress, can cause acute respiratory failure - Lab Data Result diagrams: 09/18/22 11:55 09/18/22 11:55 Lab Results 09/18/22 09/18/22 09/18/22 Range/Units 11:55 11:55 11:55 WBC 8.8 (3.8-10.6) k/uL RBC 4.86 (4.30-5.90) m/uL Hgb 15.0 (13.0-17.5) gm/dL Hct 44.5 (39.0-53.0) % MCV 91.5 (80.0-100.0) fL MCH 31.0 (25.0-35.0) pg MCHC 33.8 (31.0-37.0) g/dL RDW 12.6 (11.5-15.5) % Plt Count 215 (150-450) k/uL MPV 7.3 Neutrophils % 88 % Lymphocytes % 7 % Monocytes % 3 % Eosinophils % 0 % Basophils % 0 % Neutrophils # 7.8 H (1.3-7.7) k/uL Lymphocytes # 0.7 L (1.0-4.8) k/uL Monocytes # 0.3 (0-1.0) k/uL Eosinophils # 0.0 (0-0.7) k/uL Basophils # 0.0 (0-0.2) k/uL PT 10.6 (9.0-12.0) sec INR 1.0 (<1.2) APTT 19.9 L (22.0-30.0) sec Sodium 137 (137-145) mmol/L Potassium 4.7 (3.5-5.1) mmol/L Chloride 101 (98-107) mmol/L Carbon Dioxide 28 (22-30) mmol/L Anion Gap 8 mmol/L BUN 22 H (9-20) mg/dL Creatinine 0.76 (0.66-1.25) mg/dL Est GFR (CKD-EPI)AfAm >90 (>60 ml/min/1.73 sqM) Est GFR (CKD-EPI)NonAf >90 (>60 ml/min/1.73 sqM) Glucose 214 H (74-99) mg/dL Plasma Lactic Acid Kuldeep (0.7-2.0) mmol/L Calcium 9.0 (8.4-10.2) mg/dL Magnesium 1.6 (1.6-2.3) mg/dL Total Bilirubin 0.8 (0.2-1.3) mg/dL AST 32 (17-59) U/L ALT 39 (4-49) U/L Alkaline Phosphatase 82 (38-126) U/L Troponin I (0.000-0.034) ng/mL NT-Pro-B Natriuret Pep pg/mL Total Protein 6.6 (6.3-8.2) g/dL Albumin 3.8 (3.5-5.0) g/dL 09/18/22 09/18/22 09/18/22 Range/Units 11:55 11:55 11:55 WBC (3.8-10.6) k/uL RBC (4.30-5.90) m/uL Hgb (13.0-17.5) gm/dL Hct (39.0-53.0) % MCV (80.0-100.0) fL MCH (25.0-35.0) pg MCHC (31.0-37.0) g/dL RDW (11.5-15.5) % Plt Count (150-450) k/uL MPV Neutrophils % % Lymphocytes % % Monocytes % % Eosinophils % % Basophils % % Neutrophils # (1.3-7.7) k/uL Lymphocytes # (1.0-4.8) k/uL Monocytes # (0-1.0) k/uL Eosinophils # (0-0.7) k/uL Basophils # (0-0.2) k/uL PT (9.0-12.0) sec INR (<1.2) APTT (22.0-30.0) sec Sodium (137-145) mmol/L Potassium (3.5-5.1) mmol/L Chloride (98-107) mmol/L Carbon Dioxide (22-30) mmol/L Anion Gap mmol/L BUN (9-20) mg/dL Creatinine (0.66-1.25) mg/dL Est GFR (CKD-EPI)AfAm (>60 ml/min/1.73 sqM) Est GFR (CKD-EPI)NonAf (>60 ml/min/1.73 sqM) Glucose (74-99) mg/dL Plasma Lactic Acid Kuldeep 2.5 H* (0.7-2.0) mmol/L Calcium (8.4-10.2) mg/dL Magnesium (1.6-2.3) mg/dL Total Bilirubin (0.2-1.3) mg/dL AST (17-59) U/L ALT (4-49) U/L Alkaline Phosphatase (38-126) U/L Troponin I <0.012 (0.000-0.034) ng/mL NT-Pro-B Natriuret Pep 27 pg/mL Total Protein (6.3-8.2) g/dL Albumin (3.5-5.0) g/dL Disposition Clinical Impression: Acute exacerbation of chronic obstructive pulmonary disease, Dyspnea Disposition: ADMITTED IP TO THIS HOSP Condition: Poor Referrals: Yara Wong MD [Primary Care Provider] - 1-2 days Time of Disposition: 13:48
--- NOTE | 2022-09-18 12:03 | XR ---
EXAMINATION TYPE: XR chest 2V DATE OF EXAM: 09/18/2022 COMPARISON: Chest x-ray September 07, 2022 HISTORY: Shortness of breath TECHNIQUE: Frontal and lateral views of the chest are obtained. FINDINGS: There is some chronic parenchymal change without suspicious new focal air space opacity, p leural effusion, or pneumothorax seen. The cardiac silhouette size is stable and upper limits of nor mal. The osseous structures are intact. IMPRESSION: Chronic changes without new acute pulmonary process.
[2022-09-18 12:12] LABS: Basophils % (A) 0 %; Eosinophils % (A) 0 %; HCT 44.5 % (39.0-53.0); Lymphocytes # (A) 0.7 k/uL (1.0-4.8); Lymphocytes % (A) 7 %; MCHC 33.8 g/dL (31.0-37.0); MCV 91.5 fL (80.0-100.0); Mean Platelet Volume 7.3; Monocytes # (A) 0.3 k/uL (0-1.0); Monocytes % (A) 3 %; Neutrophils # (A) 7.8 k/uL (1.3-7.7); Neutrophils % (A) 88 %; Platelet Count 215 k/uL (150-450); RBC 4.86 m/uL (4.30-5.90); RDW 12.6 % (11.5-15.5); WBC 8.8 k/uL (3.8-10.6)
[2022-09-18 12:34] LABS: Prothrombin Time 10.6 sec (9.0-12.0)
[2022-09-18] MEDS ORDERED: MAG HYDROX/AL HYDROX/SIMETH 30 ML, HYOSCYAMINE ELIXIR 10 ML PO STA ×2 (12:36)
[2022-09-18 12:50] LABS: AST 32 U/L (17-59); African American GFR (CKD) >90 (>60 ml/min/1.73 sqM); Albumin 3.8 g/dL (3.5-5.0); Alkaline Phosphatase 82 U/L (38-126); Anion Gap 8 mmol/L; Blood Urea Nitrogen 22 mg/dL (9-20); Carbon Dioxide 28 mmol/L (22-30); Chloride 101 mmol/L (98-107); Glucose 214 mg/dL (74-99); Magnesium 1.6 mg/dL (1.6-2.3); Non-African American GFR(CKD) >90 (>60 ml/min/1.73 sqM); Partial Thromboplastin Time 19.9 sec (22.0-30.0); Sodium 137 mmol/L (137-145); Total Bilirubin 0.8 mg/dL (0.2-1.3); Total Protein 6.6 g/dL (6.3-8.2)
[2022-09-18 12:51] LABS: ALT 39 U/L (4-49)
[2022-09-18 12:52] LABS: Potassium 4.7 mmol/L (3.5-5.1)
[2022-09-18] MEDS ORDERED: ACETAMINOPHEN TAB 325 MG TAB PO PRN (13:48)
[2022-09-18] MEDS ORDERED: IPRATROPIUM-ALBUTEROL 3 ML NEB INHALATION PRN (13:48)
[2022-09-18] MEDS ORDERED: NALOXONE 0.4 MG/ML 1 ML VIAL IVP PRN (13:48)
--- NOTE | 2022-09-18 15:23 | P.CNPUL ---
History of Present Illness Consult date: 09/18/22 Reason for consult: dyspnea History of present illness: This is a 62-year-old male patient with known history of COPD with chronic hypoxic respiratory failure and an FEV1 of 40% of predicted. The patient limited on Spiriva and Symbicort on outpatient basis and the patient sees Dr. Dobbs on outpatient basis regarding his COPD. He was hospitalized approximately a week ago for an acute choked exacerbation patient was discharged home. The patient was completing a prednisone burst taper and while being intubated by the primary care physician, he was noted to be short of breath and was sent back to the hospital. Chest x-ray is consistent with COPD with some atelectatic change in lung bases. No airspace disease or pulmonary infiltrates. No fever. No chills. No pleurisy. No swelling lower extremities. White cell cause of 8.8 with a hemoglobin of 15 and the patient has a platelet count of 15. Normal coagulation profile. Serum bicarb is at 28 with a sodium level of 137 potassium level of 4.7. Lactic acid level is at 2.7, admission, troponins are negative, LFTs are normal, proBNP level is nonelevated. Previous echocardiogram showed a preserved LV function. Review of Systems CONSTITUTIONAL: Denies any recent significant weight loss or weight gain. EYES: Denies change in vision. EARS, NOSE, MOUTH, THROAT: Denies headaches, denies sore throat. CARDIOVASCULAR: Positive for chest pain, no palpitations or syncopal episodes. RESPIRATORY: Positive for shortness of breath, cough, congestion no hemoptysis. GASTROINTESTINAL: Denies change in appetite, denies abdominal pain GENITOURINARY: Denies hematuria, denies infections. MUSKULOSKELETAL: Denies pain, denies swelling. INTEGUMENTARY: Denies rash, denies eczema. NEUROLOGICAL: Denies recent memory loss, no recent seizure activity. PSYCHIATRIC: Denies anxiety, denies depression. HEMATOLOGIC/LYMPHATIC: Denies anemia, denies enlarged lymph Past Medical History Past Medical History: Chest Pain / Angina, COPD, CVA/TIA, GERD/Reflux, Hyperlipidemia, Hypertension, Myocardial Infarction ([place]) Additional Past Medical History / Comment(s): COVID April 2022, multiple MIs, TIA, peripheral vision loss of left eye Last Myocardial Infarction Date:: 2020 History of Any Multi-Drug Resistant Organisms: None Reported Past Surgical History: Heart Catheterization With Stent Additional Past Surgical History / Comment(s): 2 cardiac stents Past Anesthesia/Blood Transfusion Reactions: No Reported Reaction Date of Last Stent Placement:: 2020 Past Psychological History: No Psychological Hx Reported Smoking Status: Former smoker Past Alcohol Use History: None Reported Past Drug Use History: None Reported - Past Family History Father Family Medical History: Myocardial Infarction ([place]) Brother(s) Family Medical History: Myocardial Infarction ([place]) Medications and Allergies Home Medications Medication Instructions Recorded Confirmed Type Atorvastatin Calcium [Lipitor] 80 mg PO HS 04/26/22 09/18/22 History FLUoxetine HCL [PROzac] 20 mg PO DAILY 04/26/22 09/18/22 History FLUoxetine HCL [PROzac] 40 mg PO DAILY 04/26/22 09/18/22 History Isosorbide Mononitrate ER [Imdur] 90 mg PO DAILY 04/26/22 09/18/22 History Lansoprazole [Prevacid] 30 mg PO DAILY 04/26/22 09/18/22 History Metoprolol Tartrate [Lopressor] 25 mg PO BID 04/26/22 09/18/22 History Nitroglycerin Sl Tabs [Nitrostat] 0.4 mg SUBLINGUAL Q5M PRN 04/26/22 09/18/22 History Pantoprazole Sodium 40 mg PO BID 04/26/22 09/18/22 History rOPINIRole HCL [Requip] 0.5 mg PO TID 04/26/22 09/18/22 History Acetaminophen Tab [Tylenol] 650 mg PO Q4HR PRN tab 04/30/22 09/18/22 Rx Cholecalciferol [Vitamin D3 (125 125 mcg PO DAILY 30 Days #30 tab 04/30/22 09/18/22 Rx Mcg = 5000 Iu)] Aspirin 81 mg PO DAILY #30 tab 05/14/22 09/18/22 Rx Folic Acid 1 mg PO DAILY #30 tab 05/14/22 09/18/22 Rx Meclizine [Antivert] 12.5 mg PO TID #30 tab 05/14/22 09/18/22 Rx Ascorbic Acid [Vitamin C] 1,000 mg PO DAILY 07/21/22 09/18/22 History Cyanocobalamin (Vitamin B-12) 1,000 mcg PO DAILY 07/21/22 09/18/22 History [Vitamin B-12] Albuterol Inhaler [Ventolin Hfa 2 puff INHALATION RT-QID PRN 09/07/22 09/18/22 History Inhaler] Fluticasone Propion/Salmeterol 1 puff INHALATION RT-BID 09/07/22 09/18/22 History [Advair 250-50 Diskus] Losartan [Cozaar] 25 mg PO DAILY 09/07/22 09/18/22 History Ipratropium Nebulized [Atrovent 0.5 mg INHALATION RT-QID #60 each 09/09/22 09/18/22 Rx Nebulized 0.2 MG/ML] Tiotropium [place] [Spiriva 1 puff INHALATION RT-DAILY 09/18/22 09/18/22 History Handihaler] predniSONE See Taper PO DIRECTED 09/18/22 09/18/22 History Allergies Allergy/AdvReac Type Severity Reaction Status Date / Time codeine Allergy Swelling Verified 09/18/22 14:47 Physical Exam Vitals: Vital Signs Temp Pulse Resp BP Pulse Ox 09/18/22 14:20 89 18 161/96 97 09/18/22 12:41 96.9 F L 88 20 162/79 97 09/18/22 12:34 88 09/18/22 12:16 84 09/18/22 12:11 97 09/18/22 11:21 97.8 F 94 26 H 183/75 93 L Intake and Output 09/18/22 09/18/22 09/18/22 06:59 14:59 22:59 Other: Weight 85.275 kg GENERAL EXAM: Alert, active, pleasant 62-year-old male, and mild degree of respiratory distress currently on 4 L of oxygen by nasal cannula HEAD: Normocephalic. EYES: Normal reaction of pupils, equal size. NOSE: Clear with pink turbinates. THROAT: No erythema or exudates. NECK: No masses, no JVD. CHEST: No chest wall deformity. LUNGS: Equal air entry with no crackles, wheeze, rhonchi or dullness. The patient has diffuse extremity wheezes throughout the lung base bilaterally and there is prolongation of the escalation phase of breathing CVS: S1 and S2 normal with no audible murmur, regular rhythm. ABDOMEN: No hepatosplenomegaly, normal bowel sounds, no guarding or rigidity. SPINE: No scoliosis or deformity SKIN: No rashes CENTRAL NERVOUS SYSTEM: No focal deficits, tone is normal in all 4 extremities. EXTREMITIES: There is no peripheral edema. No clubbing, no cyanosis. Peripheral pulses are intact. Results - Laboratory Findings CBC and BMP: 09/18/22 11:55 09/18/22 11:55 PT/INR, D-dimer PT 10.6 sec (9.0-12.0) 09/18/22 11:55 INR 1.0 (<1.2) 09/18/22 11:55 Abnormal lab findings: Abnormal Labs 09/18/22 09/18/22 09/18/22 11:55 11:55 11:55 Neutrophils # 7.8 H Lymphocytes # 0.7 L APTT 19.9 L BUN 22 H Glucose 214 H Plasma Lactic Acid Kuldeep 09/18/22 11:55 Neutrophils # Lymphocytes # APTT BUN Glucose Plasma Lactic Acid Kuldeep 2.5 H* Assessment and Plan Plan: Acute exacerbation of chronic obstructive pulmonary disease with unknown FEV1 value of 40% of predicted. The patient is having recurrent exacerbations. The patient has severe COPD with chronic hypoxic respiratory failure. The patient has a metallic combination of Spiriva and Advair an outpatient basis. Exact cause of the recurrent exacerbation is not clear. The patient states that he is not smoking. No other environmental or acute patient exposures. Chest x-ray is consistent with COPD. CAT scan of the chest that was done June 2022 showed no evidence of any malignancy or any other acute abnormalities. Shortness of breath secondary to above Chronic hypoxic respiratory failure secondary to advanced COPD Former smoker History of coronary artery disease with previous stent placements Hypertension Hyperlipidemia Gastroesophageal reflux disease History of depression Plan We'll put the patient on albuterol and ipratropium nebulized treatments [id number] Perforomist and Pulmicort neb treatments twice a day IV Solu-Medrol Check pro calcitonin level Low clinical suspicion for infections Resume all medication Oxygen to titrate the flow to maintain a saturation above 90% We'll need likely to be switched to Trelegy Ellipta on outpatient basis and probably a maintenance dose of prednisone to prevent any future exacerbations. We'll continue to follow
[2022-09-18] MEDS: ASPIRIN 81 MG PO SCH (15:30)
[2022-09-18] MEDS ORDERED: IPRATROPIUM-ALBUTEROL 3 ML NEB INHALATION SCH (16:00)
[2022-09-18] MEDS: IPRATROPIUM 0.5 MG/2.5 ML NEBU INHALATION SCH ×2 (16:01→20:49)
[2022-09-18] MEDS: ALBUTEROL NEBULIZED 2.5 MG/3 ML INHALATION SCH ×2 (16:01→20:49)
[2022-09-18] MEDS ORDERED: ONDANSETRON 4 MG/2 ML VIAL IVP STA (16:23)
[2022-09-18] MEDS: PANTOPRAZOLE 40 MG TABLET PO SCH (17:05)
[2022-09-18] MEDS: methylPREDNISolone SOD SUCCI 125 MG/2 ML VIAL IV SCH ×2 (17:06→23:45)
[2022-09-18] MEDS ORDERED: FORMOTEROL FUMARATE 20 MCG/2 ML NEBU INHALATION SCH (20:00)
[2022-09-18] MEDS: BUDESONIDE 0.5 MG/2 ML NEBU INHALATION SCH (20:49)
[2022-09-18] MEDS: FORMOTEROL FUMARATE 20 MCG/2 ML NEBU INHALATION SCH (20:49)
--- NOTE | 2022-09-18 20:54 | P.HPIM ---
History of Present Illness H&P Date: 09/18/22 Chief Complaint: Shortness of breath Patient is a 62-year-old male with a known history of COPD on 4 L oxygen at bedtime and FEV1 of 40% of predicted., Hypertension, hyperlipidemia, GERD, coronary artery with history of stent placement and prior history of smoking and COVID-19 in April 2022 and history of TIA/CVA with peripheral vision loss of the left eye presents to ER with complaints of worsening shortness of breath. Patient was in the hospital about a week ago due to acute COPD exacerbation. Patient was discharged home on prednisone taper and antibiotics in the form of doxycycline. Patient's symptoms have been getting worse and was seen by his primary care physician today. Patient was sent back to ER. Chest x-ray showed chronic changes without acute pulmonary process EKG showed sinus rhythm. Laboratory data showed WBC 8.8 hemoglobin 15.0 and platelets 215 Sodium 137 potassium 4.7 chloride 101 bicarb is 28 BUN 22 and creatinine 0.76 and blood sugar is 204 and lactic acid 2.5 Liver enzymes are not elevated. Magnesium 1.6 Troponin x1 negative Influenza A and B-. RSV positive COVID-19 PCR not detected. Review of Systems Constitutional: Patient denies any fever or chills . no Generalized weakness. Abdomen: Patient denied any nausea or vomiting or abd. pain Cardiovascular: Patient denies any chest pain . + short of breath no palpitations. Respiratory: Congested cough without sputum production. Shortness of breath. Neurologic: Patient denied any numbness or tingling headache. Musculoskeletal: Patient denies any complaints of joint swelling or deformity. Skin: Negative Psychiatric: Negative Endocrine: No heat or cold intolerance. No recent weight gain. Genitourinary: No dysuria or hematuria. All other 14 point ROS negative except the above Past Medical History Past Medical History: Chest Pain / Angina, COPD, CVA/TIA, GERD/Reflux, Hyperlipidemia, Hypertension, Myocardial Infarction ([place]) Additional Past Medical History / Comment(s): COVID April 2022, multiple MIs, TIA, peripheral vision loss of left eye Last Myocardial Infarction Date:: 2020 History of Any Multi-Drug Resistant Organisms: None Reported Past Surgical History: Heart Catheterization With Stent Additional Past Surgical History / Comment(s): 2 cardiac stents Past Anesthesia/Blood Transfusion Reactions: No Reported Reaction Date of Last Stent Placement:: 2020 Past Psychological History: No Psychological Hx Reported Smoking Status: Former smoker Past Alcohol Use History: None Reported Past Drug Use History: None Reported - Past Family History Father Family Medical History: Myocardial Infarction ([place]) Brother(s) Family Medical History: Myocardial Infarction ([place]) Medications and Allergies Home Medications Medication Instructions Recorded Confirmed Type Atorvastatin Calcium [Lipitor] 80 mg PO HS 04/26/22 09/18/22 History FLUoxetine HCL [PROzac] 20 mg PO DAILY 04/26/22 09/18/22 History FLUoxetine HCL [PROzac] 40 mg PO DAILY 04/26/22 09/18/22 History Isosorbide Mononitrate ER [Imdur] 90 mg PO DAILY 04/26/22 09/18/22 History Lansoprazole [Prevacid] 30 mg PO DAILY 04/26/22 09/18/22 History Metoprolol Tartrate [Lopressor] 25 mg PO BID 04/26/22 09/18/22 History Nitroglycerin Sl Tabs [Nitrostat] 0.4 mg SUBLINGUAL Q5M PRN 04/26/22 09/18/22 History Pantoprazole Sodium 40 mg PO BID 04/26/22 09/18/22 History rOPINIRole HCL [Requip] 0.5 mg PO TID 04/26/22 09/18/22 History Acetaminophen Tab [Tylenol] 650 mg PO Q4HR PRN tab 04/30/22 09/18/22 Rx Cholecalciferol [Vitamin D3 (125 125 mcg PO DAILY 30 Days #30 tab 04/30/22 09/18/22 Rx Mcg = 5000 Iu)] Aspirin 81 mg PO DAILY #30 tab 05/14/22 09/18/22 Rx Folic Acid 1 mg PO DAILY #30 tab 05/14/22 09/18/22 Rx Meclizine [Antivert] 12.5 mg PO TID #30 tab 05/14/22 09/18/22 Rx Ascorbic Acid [Vitamin C] 1,000 mg PO DAILY 07/21/22 09/18/22 History Cyanocobalamin (Vitamin B-12) 1,000 mcg PO DAILY 07/21/22 09/18/22 History [Vitamin B-12] Albuterol Inhaler [Ventolin Hfa 2 puff INHALATION RT-QID PRN 09/07/22 09/18/22 History Inhaler] Fluticasone Propion/Salmeterol 1 puff INHALATION RT-BID 09/07/22 09/18/22 History [Advair 250-50 Diskus] Losartan [Cozaar] 25 mg PO DAILY 09/07/22 09/18/22 History Ipratropium Nebulized [Atrovent 0.5 mg INHALATION RT-QID #60 each 09/09/22 09/18/22 Rx Nebulized 0.2 MG/ML] Tiotropium [place] [Spiriva 1 puff INHALATION RT-DAILY 09/18/22 09/18/22 History Handihaler] predniSONE See Taper PO DIRECTED 09/18/22 09/18/22 History Allergies Allergy/AdvReac Type Severity Reaction Status Date / Time codeine Allergy Swelling Verified 09/18/22 14:47 Physical Exam Vitals: Vital Signs Temp Pulse Pulse Resp BP BP Pulse Ox 09/18/22 20:50 91 09/18/22 19:22 97.9 F 91 17 155/77 98 09/18/22 17:07 88 18 133/90 98 09/18/22 16:26 84 09/18/22 16:03 80 09/18/22 16:00 91 20 97 09/18/22 14:20 89 18 161/96 97 09/18/22 12:41 96.9 F L 88 20 162/79 97 09/18/22 12:34 88 09/18/22 12:16 84 09/18/22 12:11 97 09/18/22 11:21 97.8 F 94 26 H 183/75 93 L Intake and Output 09/18/22 09/18/22 09/18/22 06:59 14:59 22:59 Other: Weight 85.275 kg 85.275 kg PHYSICAL EXAMINATION: Patient is lying in the bed comfortably, no acute distress, awake alert and oriented.. HEENT: Normocephalic. Neck is supple. Pupils reactive. Nostrils clear. Oral cavity is moist. Neck reveals no JVD, carotid bruits, or thyromegaly. CHEST EXAMINATION: Trachea is central. Symmetrical expansion. Bilateral diffuse wheezing and rhonchi. CARDIAC: Normal S1, S2 with no gallops. No murmurs ABDOMEN: Soft. Bowel sounds present. Nontender. No organomegaly. No abdominal bruits. Extremities: reveal no edema. No clubbing or cyanosis Neurologically awake, alert, oriented x3 with well-coordinated movements. No focal deficits noted Skin: No rash or skin lesions. Psychiatric: Coperative. Nonsuicidal, Musculoskeletal: No joint swelling or deformity. Normal range of motion. Results CBC & Chem 7: 09/18/22 11:55 09/18/22 11:55 Labs: Abnormal Lab Results - Last 24 Hours (Table) 09/18/22 09/18/22 09/18/22 Range/Units 11:55 11:55 11:55 Neutrophils # 7.8 H (1.3-7.7) k/uL Lymphocytes # 0.7 L (1.0-4.8) k/uL APTT 19.9 L (22.0-30.0) sec BUN 22 H (9-20) mg/dL Glucose 214 H (74-99) mg/dL Plasma Lactic Acid [place] (0.7-2.0) mmol/L RSV (PCR) (Not Detectd) 09/18/22 09/18/22 09/18/22 Range/Units 11:55 14:20 15:24 Neutrophils # (1.3-7.7) k/uL Lymphocytes # (1.0-4.8) k/uL APTT (22.0-30.0) sec BUN (9-20) mg/dL Glucose (74-99) mg/dL Plasma Lactic Acid [place] 2.5 H* 2.5 H* (0.7-2.0) mmol/L RSV (PCR) Detected A (Not Detectd) 09/18/22 Range/Units 18:58 Neutrophils # (1.3-7.7) k/uL Lymphocytes # (1.0-4.8) k/uL APTT (22.0-30.0) sec BUN (9-20) mg/dL Glucose (74-99) mg/dL Plasma Lactic Acid K[place]deep 4.1 H* (0.7-2.0) mmol/L RSV (PCR) (Not Detectd) Thrombosis Risk Factor Assmnt - DVT/VTE Prophylaxis DVT/VTE Prophylaxis: Pharmacologic Prophylaxis ordered - Choose All That Apply Any of the Below Risk Factors Present?: Yes Each Factor Represents 1 point: Obesity (BMI >25) Other Risk Factors: Yes Each Risk Factor Represents 2 Points: Age 61-74 years Thrombosis Risk Factor Assessment Total Risk Factor Score: 3 Thrombosis Risk Factor Assessment Level: Moderate Risk Assessment and Plan Assessment: Worsening shortness of breath secondary to acute COPD exacerbation. Acute RSV infection Lactic acidosis on admission Chronic hypoxic respiratory failure secondary to COPD with FEV1 of 40% of predicted. On home oxygen 4 L at bedtime. 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 Continue with DuoNebs, Pulmicort and Perforomist inhalation. Continue with antibiotics and follow-up azithromycin. Oxygen supplementation as needed. Pulmonary is on board. Continue to follow closely. Prognosis is guarded. Time with Patient: Greater than 30
[2022-09-18] MEDS: ATORVASTATIN 80 MG TAB PO SCH (21:21)
[2022-09-18] MEDS: METOPROLOL TARTRATE 25 MG TAB PO SCH (21:21)
[2022-09-18] MEDS ORDERED: SODIUM CHLORIDE 0.9% 1,000 ML IV ONE (23:34)
[2022-09-18] MEDS: HEPARIN SODIUM,PORCINE/PF 5,000 UNIT/0.5 ML SYRINGE SQ SCH (23:45)
[2022-09-19] MEDS: CALCIUM CARBONATE 500 MG CHEWABLE PO PRN ×2 (00:26→12:00)
[2022-09-19] MEDS: MAGNESIUM SULFATE-D5W PMX 1 GM in DEXTROSE/WATER 1 100ML.BAG IVPB SCH ×2 (00:59→03:14)
[2022-09-19 02:46] LABS: Basophils % (A) 0 %; Eosinophils % (A) 0 %; HGB 13.3 gm/dL (13.0-17.5); Lymphocytes # (A) 0.7 k/uL (1.0-4.8); Lymphocytes % (A) 5 %; MCH 30.6 pg (25.0-35.0); MCHC 33.4 g/dL (31.0-37.0); MCV 91.7 fL (80.0-100.0); Monocytes # (A) 0.3 k/uL (0-1.0); Monocytes % (A) 2 %; Neutrophils # (A) 12.2 k/uL (1.3-7.7); Neutrophils % (A) 92 %; Platelet Count 210 k/uL (150-450); RBC 4.36 m/uL (4.30-5.90); RDW 12.4 % (11.5-15.5); WBC 13.2 k/uL (3.8-10.6)
[2022-09-19 02:58] LABS: African American GFR (CKD) >90 (>60 ml/min/1.73 sqM); Blood Urea Nitrogen 21 mg/dL (9-20); Carbon Dioxide 25 mmol/L (22-30); Glucose 220 mg/dL (74-99); Non-African American GFR(CKD) >90 (>60 ml/min/1.73 sqM); Potassium 4.5 mmol/L (3.5-5.1); Sodium 137 mmol/L (137-145)
[2022-09-19 03:37] LABS: Anion Gap 7 mmol/L; Chloride 105 mmol/L (98-107)
[2022-09-19] MEDS: methylPREDNISolone SOD SUCCI 125 MG/2 ML VIAL IV SCH ×4 (07:02→23:33)
[2022-09-19] MEDS: FLUoxetine HCL 20 MG CAP PO SCH ×2 (08:29→08:42)
[2022-09-19] MEDS: FOLIC ACID 1 MG TAB PO SCH (08:29)
[2022-09-19] MEDS: LOSARTAN 25 MG TAB PO SCH (08:29)
[2022-09-19] MEDS: METOPROLOL TARTRATE 25 MG TAB PO SCH ×2 (08:29→21:06)
[2022-09-19] MEDS: PANTOPRAZOLE 40 MG TABLET PO SCH ×2 (08:29→17:30)
[2022-09-19] MEDS: CHOLECALCIFEROL 125 MCG (5000 IU) TABLET PO SCH (08:29)
[2022-09-19] MEDS: CYANOCOBALAMIN 500 MCG TAB PO SCH (08:29)
[2022-09-19] MEDS: ISOSORBIDE MONONITRATE ER 30 MG TAB.ER.24H PO SCH (08:29)
[2022-09-19] MEDS: HEPARIN SODIUM,PORCINE/PF 5,000 UNIT/0.5 ML SYRINGE SQ SCH ×3 (08:29→23:34)
[2022-09-19] MEDS: ASPIRIN 81 MG PO SCH (08:29)
[2022-09-19] MEDS: ALBUTEROL NEBULIZED 2.5 MG/3 ML INHALATION SCH ×4 (08:40→20:33)
[2022-09-19] MEDS: BUDESONIDE 0.5 MG/2 ML NEBU INHALATION SCH ×2 (08:41→20:33)
[2022-09-19] MEDS: IPRATROPIUM 0.5 MG/2.5 ML NEBU INHALATION SCH ×4 (08:41→20:34)
[2022-09-19] MEDS: FORMOTEROL FUMARATE 20 MCG/2 ML NEBU INHALATION SCH ×2 (08:41→20:33)
[2022-09-19] MEDS ORDERED: NON FORMULARY DRUG (Lansoprazole [Prevacid] 30 MG Capsule.Dr) PO SCH (09:00)
[2022-09-19] MEDS: AZITHROMYCIN 500 MG TAB PO SCH (09:09)
--- NOTE | 2022-09-19 11:56 | P.PN ---
Subjective Progress Note Date: 09/19/22 This is a 62-year-old male patient with known history of COPD with chronic hypoxic respiratory failure and an FEV1 of 40% of predicted. The patient limited on Spiriva and Symbicort on outpatient basis and the patient sees Dr. Dobbs on outpatient basis regarding his COPD. He was hospitalized approximately a week ago for an acute choked exacerbation patient was discharged home. The patient was completing a prednisone burst taper and while being intubated by the primary care physician, he was noted to be short of breath and was sent back to the hospital. Chest x-ray is consistent with COPD with some atelectatic change in lung bases. No airspace disease or pulmonary infiltrates. No fever. No c hills. No pleurisy. No swelling lower extremities. White cell cause of 8.8 with a hemoglobin of 15 and the patient has a platelet count of 15. Normal coagulation profile. Serum bicarb is at 28 with a sodium level of 137 potassium level of 4.7. Lactic acid level is at 2.7, admission, troponins are negative, LFTs are normal, proBNP level is nonelevated. Previous echocardiogram showed a preserved LV function. On today's evaluation of 09/19/2022, the patient is feeling slightly improved compared to yesterday. He still getting short of breath with limited amount of activity. He is on oxygen and currently is on 3 L nasal cannula. Otherwise, no other significant events. He was hospitalized yesterday to emergency because of an acute choked exacerbation. Lactic acid level peaked at 7.3 and dropped down to 2.4. Unresponsive 15.2 hemolyzed 15.3 and a platelet count of 210. BUN is 21 and a creatinine of 0.7. Objective - Vital Signs Vital signs: Vital Signs Temp 97.4 F L 09/19/22 07:30 Pulse 78 09/19/22 09:09 Resp 18 09/19/22 11:00 BP 134/47 09/19/22 07:30 Pulse Ox 96 09/19/22 08:47 FiO2 Intake & Output 09/18/22 09/19/22 09/19/22 18:59 06:59 18:59 Weight 85.275 kg Other: Voiding Method Toilet Toilet - Exam GENERAL EXAM: Alert, active, pleasant 62-year-old male, and mild degree of respiratory distress currently on 3 L of oxygen by nasal cannula HEAD: Normocephalic. EYES: Normal reaction of pupils, equal size. NOSE: Clear with pink turbinates. THROAT: No erythema or exudates. NECK: No masses, no JVD. CHEST: No chest wall deformity. LUNGS: Equal air entry with no crackles, wheeze, rhonchi or dullness. The patient has diffuse extremity wheezes throughout the lung base bilaterally and there is prolongation of the escalation phase of breathing CVS: S1 and S2 normal with no audible murmur, regular rhythm. ABDOMEN: No hepatosplenomegaly, normal bowel sounds, no guarding or rigidity. SPINE: No scoliosis or deformity SKIN: No rashes CENTRAL NERVOUS SYSTEM: No focal deficits, tone is normal in all 4 extremities. EXTREMITIES: There is no peripheral edema. No clubbing, no cyanosis. Peripheral pulses are intact. - Labs CBC & Chem 7: 09/19/22 02:18 09/19/22 02:18 Labs: Abnormal Lab Results - Last 24 Hours (Table) 09/18/22 09/18/22 09/18/22 Range/Units 11:55 11:55 11:55 WBC (3.8-10.6) k/uL Neutrophils # 7.8 H (1.3-7.7) k/uL Lymphocytes # 0.7 L (1.0-4.8) k/uL APTT 19.9 L (22.0-30.0) sec BUN 22 H (9-20) mg/dL Glucose 214 H (74-99) mg/dL Plasma Lactic Acid [place] (0.7-2.0) mmol/L Calcium (8.4-10.2) mg/dL RSV (PCR) (Not Detectd) 09/18/22 09/18/22 09/18/22 Range/Units 11:55 14:20 15:24 WBC (3.8-10.6) k/uL Neutrophils # (1.3-7.7) k/uL Lymphocytes # (1.0-4.8) k/uL APTT (22.0-30.0) sec BUN (9-20) mg/dL Glucose (74-99) mg/dL Plasma Lactic Acid [place] 2.5 H* 2.5 H* (0.7-2.0) mmol/L Calcium (8.4-10.2) mg/dL RSV (PCR) Detected A (Not Detectd) 09/18/22 09/18/22 09/19/22 Range/Units 18:58 22:10 02:18 WBC 13.2 H (3.8-10.6) k/uL Neutrophils # 12.2 H (1.3-7.7) k/uL Lymphocytes # 0.7 L (1.0-4.8) k/uL APTT (22.0-30.0) sec BUN (9-20) mg/dL Glucose (74-99) mg/dL Plasma Lactic Acid [place] 4.1 H* 7.3 H* (0.7-2.0) mmol/L Calcium (8.4-10.2) mg/dL RSV (PCR) (Not Detectd) 09/19/22 09/19/22 09/19/22 Range/Units 02:18 02:18 05:41 WBC (3.8-10.6) k/uL Neutrophils # (1.3-7.7) k/uL Lymphocytes # (1.0-4.8) k/uL APTT (22.0-30.0) sec BUN 21 H (9-20) mg/dL Glucose 220 H (74-99) mg/dL Plasma Lactic Acid K[place]deep 4.0 H* 3.8 H* (0.7-2.0) mmol/L Calcium 8.0 L (8.4-10.2) mg/dL RSV (PCR) (Not Detectd) 09/19/22 Range/Units 08:23 WBC (3.8-10.6) k/uL Neutrophils # (1.3-7.7) k/uL Lymphocytes # (1.0-4.8) k/uL APTT (22.0-30.0) sec BUN (9-20) mg/dL Glucose (74-99) mg/dL Plasma Lactic Acid [place] 2.4 H* (0.7-2.0) mmol/L Calcium (8.4-10.2) mg/dL RSV (PCR) (Not Detectd) Assessment and Plan Plan: Acute exacerbation of chronic obstructive pulmonary disease with unknown FEV1 value of 40% of predicted. The patient is having recurrent exacerbations. The patient has severe COPD with chronic hypoxic respiratory failure. The patient has a metallic combination of Spiriva and Advair an outpatient basis. Exact cause of the recurrent exacerbation is not clear. The patient states that he is not smoking. No other environmental or acute patient exposures. Chest x-ray is consistent with COPD. CAT scan of the chest that was done June 2022 showed no evidence of any malignancy or any other acute abnormalities. Shortness of breath secondary to above Acute lactic acidosis because of labored breathing, improving Chronic hypoxic respiratory failure secondary to advanced COPD Former smoker History of coronary artery disease with previous stent placements Hypertension Hyperlipidemia Gastroesophageal reflux disease History of depression Plan Clinically somewhat improved compared to yesterday We'll continue same treatment for today Continue albuterol and ipratropium nebulized treatments [id number] Perforomist and Pulmicort neb treatments twice a day IV Solu-Medrol to be continued the same dose of 60 mg every 6 hours Check pro calcitonin level has been low at 0.07 Low clinical suspicion for infections Resume all medication Oxygen to titrate the flow to maintain a saturation above 90% We'll need likely to be switched to Trelegy Ellipta on outpatient basis and probably a maintenance dose of prednisone to prevent any future exacerbations. We'll continue to follow
[2022-09-19] MEDS ORDERED: BENZONATATE 100 MG CAP PO PRN (14:51)
--- NOTE | 2022-09-19 14:56 | P.CONS ---
History of Present Illness - Reason for Consult Consult date: 09/19/22 Palliative care information Requesting physician: Geovanna Vidal - History of Present Illness The patient is a 62-year-old male patient with a past medical history of MA x 3 s/p PCI, COVID, GERD, HTN, HLD. He also has a history of severe COPD with chronic hypoxic respiratory failure and an FEV1 of 40% of predicted. He presented to the emergency department on 09/18/22 with shortness of breath. He was hospitalized approximately a week ago for an acute COPD exacerbation and the patient was discharged home on antibiotics and steroids. CXR is consistent with COPD with some atelectatic change in lung bases. No airspace disease or pulmonary infiltrates. No fever or chills. No pleurisy. No swelling lower extremities. WBC 8.8, Hgb 15. The patient has a platelet count of 215. Serum bicarb is at 28 with a sodium level of 137 potassium level of 4.7. Lactic acid level is at 2.7, admission, troponins are negative, LFTs are normal, BNP level is nonelevated. Previous echocardiogram showed a preserved LV function. COVID- 19 not detected, influenza A and B not detected. RSV positive. Review of Systems Constitutional: Denies chills, Denies fever Cardiovascular: Reports chest pain, Reports shortness of breath Respiratory: Reports cough, Reports dyspnea Gastrointestinal: Denies nausea, Denies vomiting Past Medical History Past Medical History: Chest Pain / Angina, COPD, CVA/TIA, GERD/Reflux, Hyperlipidemia, Hypertension, Myocardial Infarction (MA) Additional Past Medical History / Comment(s): COVID April 2022, multiple MIs, TIA, peripheral vision loss of left eye Last Myocardial Infarction Date:: 2020 History of Any Multi-Drug Resistant Organisms: None Reported Past Surgical History: Heart Catheterization With Stent Additional Past Surgical History / Comment(s): 2 cardiac stents Past Anesthesia/Blood Transfusion Reactions: No Reported Reaction Date of Last Stent Placement:: 2020 Past Psychological History: No Psychological Hx Reported Smoking Status: Former smoker Past Alcohol Use History: None Reported Past Drug Use History: None Reported - Past Family History Father Family Medical History: Myocardial Infarction (MA) Brother(s) Family Medical History: Myocardial Infarction (MA) Medications and Allergies Home Medications Medication Instructions Recorded Confirmed Type Atorvastatin Calcium [Lipitor] 80 mg PO HS 04/26/22 09/18/22 History FLUoxetine HCL [PROzac] 20 mg PO DAILY 04/26/22 09/18/22 History FLUoxetine HCL [PROzac] 40 mg PO DAILY 04/26/22 09/18/22 History Isosorbide Mononitrate ER [Imdur] 90 mg PO DAILY 04/26/22 09/18/22 History Lansoprazole [Prevacid] 30 mg PO DAILY 04/26/22 09/18/22 History Metoprolol Tartrate [Lopressor] 25 mg PO BID 04/26/22 09/18/22 History Nitroglycerin Sl Tabs [Nitrostat] 0.4 mg SUBLINGUAL Q5M PRN 04/26/22 09/18/22 History Pantoprazole Sodium 40 mg PO BID 04/26/22 09/18/22 History rOPINIRole HCL [Requip] 0.5 mg PO TID 04/26/22 09/18/22 History Acetaminophen Tab [Tylenol] 650 mg PO Q4HR PRN tab 04/30/22 09/18/22 Rx Cholecalciferol [Vitamin D3 (125 125 mcg PO DAILY 30 Days #30 tab 04/30/22 09/18/22 Rx Mcg = 5000 Iu)] Aspirin 81 mg PO DAILY #30 tab 05/14/22 09/18/22 Rx Folic Acid 1 mg PO DAILY #30 tab 05/14/22 09/18/22 Rx Meclizine [Antivert] 12.5 mg PO TID #30 tab 05/14/22 09/18/22 Rx Ascorbic Acid [Vitamin C] 1,000 mg PO DAILY 07/21/22 09/18/22 History Cyanocobalamin (Vitamin B-12) 1,000 mcg PO DAILY 07/21/22 09/18/22 History [Vitamin B-12] Albuterol Inhaler [Ventolin Hfa 2 puff INHALATION RT-QID PRN 09/07/22 09/18/22 History Inhaler] Fluticasone Propion/Salmeterol 1 puff INHALATION RT-BID 09/07/22 09/18/22 History [Advair 250-50 Diskus] Losartan [Cozaar] 25 mg PO DAILY 09/07/22 09/18/22 History Ipratropium Nebulized [Atrovent 0.5 mg INHALATION RT-QID #60 each 09/09/22 09/18/22 Rx Nebulized 0.2 MG/ML] Tiotropium Lamoni [Spiriva 1 puff INHALATION RT-DAILY 09/18/22 09/18/22 History Handihaler] predniSONE See Taper PO DIRECTED 09/18/22 09/18/22 History Allergies Allergy/AdvReac Type Severity Reaction Status Date / Time codeine Allergy Swelling Verified 09/18/22 14:47 Physical Exam Vitals: Vital Signs Temp Pulse Pulse Resp BP BP Pulse Ox 09/19/22 14:06 88 09/19/22 13:45 88 09/19/22 11:00 18 09/19/22 09:09 78 09/19/22 08:59 80 09/19/22 08:57 80 09/19/22 08:47 96 09/19/22 08:41 76 09/19/22 07:30 97.4 F L 75 17 134/47 97 09/19/22 01:54 98.0 F 81 15 125/63 93 L 09/18/22 21:13 92 09/18/22 20:57 91 09/18/22 20:56 92 09/18/22 20:50 91 09/18/22 19:22 97.9 F 91 17 155/77 98 09/18/22 17:07 88 18 133/90 98 09/18/22 16:26 84 09/18/22 16:03 80 09/18/22 16:00 91 20 97 Intake and Output 09/18/22 09/19/22 09/19/22 22:59 06:59 14:59 Other: Voiding Method Toilet Toilet Weight 85.275 kg General: Well developed, well nourished. No acute distress. HEENT: Head is atraumatic, normocephalic. Lungs: Barrel chest, increased work of breathing, tachypenic. On 3L NC Abdomen/GI: Soft, non-distended. No guarding, rigidity, or abdominal tenderness. Skin: Warm and dry Neurologic: Alert and oriented 3, CN II-XII grossly intact. No focal deficits. Psychiatric: Appropriate mood and affect. Results CBC & Chem 7: 09/19/22 02:18 09/19/22 02:18 Labs: Abnormal Lab Results - Last 24 Hours (Table) 09/18/22 09/18/22 09/18/22 Range/Units 14:20 15:24 18:58 WBC (3.8-10.6) k/uL Neutrophils # (1.3-7.7) k/uL Lymphocytes # (1.0-4.8) k/uL BUN (9-20) mg/dL Glucose (74-99) mg/dL Plasma Lactic Acid Kuldeep 2.5 H* 4.1 H* (0.7-2.0) mmol/L Calcium (8.4-10.2) mg/dL RSV (PCR) Detected A (Not Detectd) 09/18/22 09/19/22 09/19/22 Range/Units 22:10 02:18 02:18 WBC 13.2 H (3.8-10.6) k/uL Neutrophils # 12.2 H (1.3-7.7) k/uL Lymphocytes # 0.7 L (1.0-4.8) k/uL BUN 21 H (9-20) mg/dL Glucose 220 H (74-99) mg/dL Plasma Lactic Acid Kuldeep 7.3 H* (0.7-2.0) mmol/L Calcium 8.0 L (8.4-10.2) mg/dL RSV (PCR) (Not Detectd) 09/19/22 09/19/22 09/19/22 Range/Units 02:18 05:41 08:23 WBC (3.8-10.6) k/uL Neutrophils # (1.3-7.7) k/uL Lymphocytes # (1.0-4.8) k/uL BUN (9-20) mg/dL Glucose (74-99) mg/dL Plasma Lactic Acid Kuldeep 4.0 H* 3.8 H* 2.4 H* (0.7-2.0) mmol/L Calcium (8.4-10.2) mg/dL RSV (PCR) (Not Detectd) 09/19/22 Range/Units 11:49 WBC (3.8-10.6) k/uL Neutrophils # (1.3-7.7) k/uL Lymphocytes # (1.0-4.8) k/uL BUN (9-20) mg/dL Glucose (74-99) mg/dL Plasma Lactic Acid Kuldeep 3.5 H* (0.7-2.0) mmol/L Calcium (8.4-10.2) mg/dL RSV (PCR) (Not Detectd) Microbiology - Last 24 Hours (Table) 09/18/22 11:55 Blood Culture - Preliminary Blood No Growth after 24 hours Chest x-ray: report reviewed Assessment and Plan Assessment: Social * 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, 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 * Marital status - to his , Elvira, for 33 years * Children/grandchildren - 2 sons * Residence - one story condo * Who do you reside with - * ETOH - no * Tobacco - former heavy smoker * Illicit drugs - none reported Spiritual/Cultural * A spiritual person - yes * Druze - Cheondoism * Belong to a particular synagogue - no * Beliefs a source of comfort and strength - yes * Temple or cultural practices restrictions - no * EOL considerations/rituals -no Functional Assessment * Able to walk independently - yes * Assistive devices - patient has cane and walker, refuses to use both * Able to use the bathroom independently - yes * Continent - yes * Require assistance bathing- no * Able to feed self - yes * Who prepares meals - patient's * How many meals a day eaten - 2 small meals plus snacks * Able to clean house/do laundry - no * Transportation -patient's * Able to shop -no * Who manages medications -patient's * Who manages finances -patient's PPS score - 60% Safety * In home/residence - yes * In relationships - yes Psychological/Emotional * Dementia present -no * Insight and judgment - intact * Depression - occasional * Suicidal thoughts - no * Good support system - family * Patients goals - prolonged survival * Frequent hospitalizations - yes * Desire to keep coming back to the hospital for treatment - yes * Symptoms * Pain - chest soreness from coughing * Fatigue - yes * SOB - mild conversational dyspnea. Continue Zithromax, albuterol, DuoNeb, Pulmicort, Perforomist, Atrovent, and Solu-Medrol * Insomnia - no * N/V - no * Anxiety - yes, continue Prozac * Depression - occasional * Confusion - no * Agitation - no * Hallucinations - no * Appetite/weight loss - no recent weight loss, patient has decreased appetite. Ensure supplements added * Dysphagia - no * Constipation - no, LBM Yesterday * Incontinence - No * Itch - No * Cough - yes Eddie Finn as needed Plan: Summary/Goals - the patient is sitting up on the side of the bed visiting with his . Information regarding palliative care philosophies and services provided. Patient was educated on progression of his COPD and his current RSV infection. The patient states that he is tired of coming back and forth to the hospital. Palliative care's mission is to control his symptoms at home to decrease the need to come back to the hospital. He understands there are is no cure for his COPD. He understands that he will have more frequent exacerbations and treatment will become less effective as he continues to progress. The patient and his agreed to have palliative care visit done at home. paid search manager notified. Recommendations - home with palliative care when cleared medically Advanced Directives - none on file Code Status - full code Thank you for this consultation Peggy Johnson [facility] Palliative Care [facility] [id number] Email: [email or web address]
[2022-09-19] MEDS ORDERED: SODIUM CHLORIDE 0.9% 500 ML 500 ML IV ONE (18:31)
[2022-09-19] MEDS: MORPHINE SULFATE 2 MG/ML SYRINGE IVP PRN (18:46)
[2022-09-19] MEDS: ATORVASTATIN 80 MG TAB PO SCH (21:06)
[2022-09-20] MEDS: PANTOPRAZOLE 40 MG TABLET PO SCH ×2 (06:26→16:14)
[2022-09-20] MEDS: methylPREDNISolone SOD SUCCI 125 MG/2 ML VIAL IV SCH ×4 (06:26→23:37)
[2022-09-20 08:59] LABS: Basophils # (A) 0.02 X 10*3/uL (0.00-0.10); Basophils % (A) 0.1 %; Eosinophils # (A) 0 X 10*3/uL (0.04-0.35); Eosinophils % (A) 0 %; HCT 36.7 % (39.6-50.0); HGB 12.1 g/dL (13.0-17.0); Immature Grans, Automated 1.2 %; Lymphocytes # (A) 0.77 X 10*3/uL (0.90-5.00); Lymphocytes % (A) 4.3 %; MCH 30.5 pg (27.0-32.0); MCV 92.4 fL (80.0-97.0); Mean Platelet Volume 9.5 fL (9.5-12.2); Monocytes # (A) 0.26 X 10*3/uL (0.20-1.00); Monocytes % (A) 1.5 %; NRBC Per 100 WBC 0 /100 WBCS (0.0-0.0); Neutrophils # (A) 16.59 X 10*3/uL (1.80-7.70); Neutrophils % (A) 92.9 %; Platelet Count 198 X 10*3/uL (140-440); RBC 3.97 X 10*6/uL (4.40-5.60); RDW 12.2 % (11.5-14.5); WBC 17.86 X 10*3/uL (4.50-10.00)
[2022-09-20] MEDS: BUDESONIDE 0.5 MG/2 ML NEBU INHALATION SCH (09:09)
[2022-09-20] MEDS: FORMOTEROL FUMARATE 20 MCG/2 ML NEBU INHALATION SCH ×2 (09:09→20:03)
[2022-09-20] MEDS: ALBUTEROL NEBULIZED 2.5 MG/3 ML INHALATION SCH ×4 (09:09→20:03)
[2022-09-20] MEDS: IPRATROPIUM 0.5 MG/2.5 ML NEBU INHALATION SCH ×4 (09:09→20:03)
[2022-09-20] MEDS: LOSARTAN 25 MG TAB PO SCH (09:17)
[2022-09-20] MEDS: CYANOCOBALAMIN 500 MCG TAB PO SCH (09:17)
[2022-09-20] MEDS: HEPARIN SODIUM,PORCINE/PF 5,000 UNIT/0.5 ML SYRINGE SQ SCH ×3 (09:17→23:38)
[2022-09-20] MEDS: FOLIC ACID 1 MG TAB PO SCH (09:17)
[2022-09-20] MEDS: METOPROLOL TARTRATE 25 MG TAB PO SCH ×2 (09:17→20:30)
[2022-09-20] MEDS: ASPIRIN 81 MG PO SCH (09:17)
[2022-09-20] MEDS: AZITHROMYCIN 500 MG TAB PO SCH (09:17)
[2022-09-20] MEDS: ISOSORBIDE MONONITRATE ER 30 MG TAB.ER.24H PO SCH (09:17)
[2022-09-20] MEDS: CHOLECALCIFEROL 125 MCG (5000 IU) TABLET PO SCH (09:17)
[2022-09-20] MEDS: FLUoxetine HCL 20 MG CAP PO SCH ×2 (09:18→10:29)
[2022-09-20 09:32] LABS: African American GFR (CKD) 106.5 (60.0-200.0); Anion Gap 13.8 mmol/L (10.00-18.00); BUN/Creat Ratio 25.06 Ratio (12.00-20.00); Blood Urea Nitrogen 21.8 mg/dL (9.0-27.0); Calcium 8.2 mg/dL (8.7-10.3); Non-African American GFR(CKD) 91.9 (60.0-200.0); Potassium 4.3 mmol/L (3.5-5.5)
--- NOTE | 2022-09-20 10:19 | P.PN ---
Subjective Progress Note Date: 09/20/22 This is a 62-year-old male patient with known history of COPD with chronic hypoxic respiratory failure and an FEV1 of 40% of predicted. The patient limited on Spiriva and Symbicort on outpatient basis and the patient sees Dr. Dobbs on outpatient basis regarding his COPD. He was hospitalized approximately a week ago for an acute choked exacerbation patient was discharged home. The patient was completing a prednisone burst taper and while being intubated by the primary care physician, he was noted to be short of breath and was sent back to the hospital. Chest x-ray is consistent with COPD with some atelectatic change in lung bases. No airspace disease or pulmonary infiltrates. No fever. No c hills. No pleurisy. No swelling lower extremities. White cell cause of 8.8 with a hemoglobin of 15 and the patient has a platelet count of 15. Normal coagulation profile. Serum bicarb is at 28 with a sodium level of 137 potassium level of 4.7. Lactic acid level is at 2.7, admission, troponins are negative, LFTs are normal, proBNP level is nonelevated. Previous echocardiogram showed a preserved LV function. On today's evaluation of 09/19/2022, the patient is feeling slightly improved compared to yesterday. He still getting short of breath with limited amount of activity. He is on oxygen and currently is on 3 L nasal cannula. Otherwise, no other significant events. He was hospitalized yesterday to emergency because of an acute choked exacerbation. Lactic acid level peaked at 7.3 and dropped down to 2.4. Unresponsive 15.2 hemolyzed 15.3 and a platelet count of 210. BUN is 21 and a creatinine of 0.7. On today's evaluation of 09/20/2022, the patient is still short of breath bronchospastic and wheezy. I would say limited improvement since yesterday. Remains on bronchodilators and steroids. He remains on oxygen and is currently on 2 L. The visiting 117.8, hemoglobin 12.1, platelet count is at 198, normal electrolytes, lactic acid level dropped down to 3.4, BUN is 21 with a creatinine of 0.9. Remains on albuterol updrafts, Pulmicort Respules, Perforomist, IV Solu-Medrol 60 mg every 6 hours. Remains on Zithromax as an empiric antibiotic coverage. Objective - Vital Signs Vital signs: Vital Signs Temp 97.9 F 09/20/22 08:00 Pulse 84 09/20/22 09:32 Resp 19 09/20/22 08:00 BP 133/79 09/20/22 08:00 Pulse Ox 95 09/20/22 09:09 FiO2 Intake & Output 09/19/22 09/20/22 09/20/22 18:59 06:59 18:59 Intake Total 700 Balance 700 Intake: Oral 700 Other: Voiding Method Toilet # Voids 3 2 - Exam GENERAL EXAM: Alert, active, pleasant 62-year-old male, and mild degree of respiratory distress currently on 3 L of oxygen by nasal cannula HEAD: Normocephalic. EYES: Normal reaction of pupils, equal size. NOSE: Clear with pink turbinates. THROAT: No erythema or exudates. NECK: No masses, no JVD. CHEST: No chest wall deformity. LUNGS: Equal air entry with no crackles, wheeze, rhonchi or dullness. The patient has diffuse extremity wheezes throughout the lung base bilaterally and there is prolongation of the escalation phase of breathing CVS: S1 and S2 normal with no audible murmur, regular rhythm. ABDOMEN: No hepatosplenomegaly, normal bowel sounds, no guarding or rigidity. SPINE: No scoliosis or deformity SKIN: No rashes CENTRAL NERVOUS SYSTEM: No focal deficits, tone is normal in all 4 extremities. EXTREMITIES: There is no peripheral edema. No clubbing, no cyanosis. Peripheral pulses are intact. - Labs CBC & Chem 7: 09/20/22 05:33 09/20/22 05:33 Labs: Abnormal Lab Results - Last 24 Hours (Table) 09/19/22 09/19/22 09/19/22 Range/Units 11:49 16:01 19:19 WBC (4.50-10.00) X 10*3/uL RBC (4.40-5.60) X 10*6/uL Hgb (13.0-17.0) g/dL Hct (39.6-50.0) % Immature Gran # (0.00-0.04) X 10*3/uL Neutrophils # (1.80-7.70) X 10*3/uL Lymphocytes # (0.90-5.00) X 10*3/uL Eosinophils # (0.04-0.35) X 10*3/uL BUN/Creatinine Ratio (12.00-20.00) Ratio Glucose (70-110) mg/dL Plasma Lactic Acid Kuldeep 3.5 H* 4.0 H* 3.4 H* (0.7-2.0) mmol/L Calcium (8.7-10.3) mg/dL 09/20/22 09/20/22 09/20/22 Range/Units 00:48 05:33 05:33 WBC 17.86 H (4.50-10.00) X 10*3/uL RBC 3.97 L (4.40-5.60) X 10*6/uL Hgb 12.1 L (13.0-17.0) g/dL Hct 36.7 L (39.6-50.0) % Immature Gran # 0.22 H (0.00-0.04) X 10*3/uL Neutrophils # 16.59 H (1.80-7.70) X 10*3/uL Lymphocytes # 0.77 L (0.90-5.00) X 10*3/uL Eosinophils # 0 L (0.04-0.35) X 10*3/uL BUN/Creatinine Ratio 25.06 H (12.00-20.00) Ratio Glucose 168 H (70-110) mg/dL Plasma Lactic Acid Kuldeep 4.0 H* (0.7-2.0) mmol/L Calcium 8.2 L (8.7-10.3) mg/dL Microbiology - Last 24 Hours (Table) 09/18/22 11:55 Blood Culture - Preliminary Blood No Growth after 24 hours 09/18/22 11:55 Blood Culture - Preliminary Blood No Growth after 24 hours Assessment and Plan Plan: Acute exacerbation of chronic obstructive pulmonary disease with unknown FEV1 value of 40% of predicted. The patient is having recurrent exacerbations. The patient has severe COPD with chronic hypoxic respiratory failure. The patient has a metallic combination of Spiriva and Advair an outpatient basis. Exact cause of the recurrent exacerbation is not clear. The patient states that he is not smoking. No other environmental or acute patient exposures. Chest x-ray is consistent with COPD. CAT scan of the chest that was done June 2022 showed no evidence of any malignancy or any other acute abnormalities. Shortness of breath secondary to above Acute lactic acidosis because of labored breathing, improving Chronic hypoxic respiratory failure secondary to advanced COPD Former smoker History of coronary artery disease with previous stent placements Hypertension Hyperlipidemia Gastroesophageal reflux disease History of depression Plan Limited improvement since yesterday and we suggest continuing the same treatment for now Increase mobility FiO2 is currently at 2 L nasal cannula Continue albuterol and ipratropium nebulized treatments [id number] Perforomist and Pulmicort neb treatments twice a day IV Solu-Medrol to be continued the same dose of 60 mg every 6 hours Check pro calcitonin level has been low at 0.07 Low clinical suspicion for infections Resume all medication Oxygen to titrate the flow to maintain a saturation above 90% We'll need likely to be switched to Trelegy Ellipta on outpatient basis and probably a maintenance dose of prednisone to prevent any future exacerbations. We'll continue to follow
[2022-09-20] MEDS: MORPHINE SULFATE 2 MG/ML SYRINGE IVP PRN (10:25)
[2022-09-20] MEDS ORDERED: HYDROcodone/APAP 5-325MG 1 EACH TAB PO PRN (14:48)
[2022-09-20] MEDS: ATORVASTATIN 80 MG TAB PO SCH (20:30)
--- NOTE | 2022-09-20 23:33 | P.PN ---
Subjective Progress Note Date: 09/19/22 Patient is a 62-year-old male with a known history of COPD on 4 L oxygen at bedtime and FEV1 of 40% of predicted., Hypertension, hyperlipidemia, GERD, coronary artery with history of stent placement and prior history of smoking and COVID-19 in April 2022 and history of TIA/CVA with peripheral vision loss of the left eye presents to ER with complaints of worsening shortness of breath. Patient was in the hospital about a week ago due to acute COPD exacerbation. Patient was discharged home on prednisone taper and antibiotics in the form of doxycycline. Patient's symptoms have been getting worse and was seen by his primary care physician today. Patient was sent back to ER. Chest x-ray showed chronic changes without acute pulmonary process EKG showed sinus rhythm. Laboratory data showed WBC 8.8 hemoglobin 15.0 and platelets 215 Sodium 137 potassium 4.7 chloride 101 bicarb is 28 BUN 22 and creatinine 0.76 and blood sugar is 204 and lactic acid 2.5 Liver enzymes are not elevated. Magnesium 1.6 Troponin x1 negative Influenza A and B-. RSV positive COVID-19 PCR not detected. 09/19/2022 Patient is lying in bed. Awake alert and oriented x3. Breath instructions slightly better compared to yesterday. Still having bilateral diffuse wheezing and scattered rhonchi. Cough without any sputum production. Requiring oxygen at 3 L via nasal cannula. Lactic acid coming down to 3.5 today. Laboratory data showed WBC 13.2 hemoglobin 13.3 and platelets 210 sodium 137 potassium 4.5 chloride 105 bicarb is 25 BUN 21 and creatinine 0.73. Blood sugar is 220. Calcium 8.0. Patient is being continued on IV steroids, DuoNebs, Pulmicort and performing stimulations. Also on azithromycin. Blood cultures negative so far. Current medications reviewed. Objective - Vital Signs Vital signs: Vital Signs Temp 97.8 F 09/19/22 19:10 Pulse 88 09/19/22 20:57 Resp 18 09/19/22 19:10 BP 175/69 09/19/22 19:10 Pulse Ox 96 09/19/22 19:10 FiO2 Intake & Output 09/19/22 09/19/22 09/20/22 06:59 18:59 06:59 Intake Total 700 Balance 700 Intake: Oral 700 Other: Voiding Method Toilet Toilet # Voids 3 - Exam PHYSICAL EXAMINATION: Patient is lying in the bed comfortably, no acute distress, awake alert and oriented.. HEENT: Normocephalic. Neck is supple. Pupils reactive. Nostrils clear. Oral cavity is moist. Neck reveals no JVD, carotid bruits, or thyromegaly. CHEST EXAMINATION: Trachea is central. Symmetrical expansion. Bilateral diffuse wheezing and scattered rhonchi. CARDIAC: Normal S1, S2 with no gallops. No murmurs ABDOMEN: Soft. Bowel sounds present. Nontender. No organomegaly. No abdominal bruits. Extremities: reveal no edema. No clubbing or cyanosis Neurologically awake, alert, oriented x3 with well-coordinated movements. No focal deficits noted Skin: No rash or skin lesions. Psychiatric: Coperative. Nonsuicidal, Musculoskeletal: No joint swelling or deformity. Normal range of motion. - Labs CBC & Chem 7: 09/20/22 05:33 09/20/22 05:33 Labs: Abnormal Lab Results - Last 24 Hours (Table) 09/18/22 09/19/22 09/19/22 Range/Units 22:10 02:18 02:18 WBC 13.2 H (3.8-10.6) k/uL Neutrophils # 12.2 H (1.3-7.7) k/uL Lymphocytes # 0.7 L (1.0-4.8) k/uL BUN 21 H (9-20) mg/dL Glucose 220 H (74-99) mg/dL Plasma Lactic Acid Kuldeep 7.3 H* (0.7-2.0) mmol/L Calcium 8.0 L (8.4-10.2) mg/dL 09/19/22 09/19/22 09/19/22 Range/Units 02:18 05:41 08:23 WBC (3.8-10.6) k/uL Neutrophils # (1.3-7.7) k/uL Lymphocytes # (1.0-4.8) k/uL BUN (9-20) mg/dL Glucose (74-99) mg/dL Plasma Lactic Acid Kuldeep 4.0 H* 3.8 H* 2.4 H* (0.7-2.0) mmol/L Calcium (8.4-10.2) mg/dL 09/19/22 09/19/22 09/19/22 Range/Units 11:49 16:01 19:19 WBC (3.8-10.6) k/uL Neutrophils # (1.3-7.7) k/uL Lymphocytes # (1.0-4.8) k/uL BUN (9-20) mg/dL Glucose (74-99) mg/dL Plasma Lactic Acid Kuldeep 3.5 H* 4.0 H* 3.4 H* (0.7-2.0) mmol/L Calcium (8.4-10.2) mg/dL Microbiology - Last 24 Hours (Table) 09/18/22 11:55 Blood Culture - Preliminary Blood No Growth after 24 hours 09/18/22 11:55 Blood Culture - Preliminary Blood No Growth after 24 hours Assessment and Plan Assessment: Worsening shortness of breath secondary to acute COPD exacerbation. Acute RSV infection Lactic acidosis on admission. improving Chronic hypoxic respiratory failure secondary to COPD with FEV1 of 40% of predicted. On home oxygen 4 L at bedtime. 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 Continue with DuoNebs, Pulmicort and Perforomist inhalation. Continue with antibiotics and follow-up azithromycin. Oxygen supplementation as needed. Pulmonary is on board. Continue to follow closely. Prognosis is guarded. Time with Patient: Greater than 30
--- NOTE | 2022-09-20 23:36 | P.PN ---
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 Patient was in the hospital about a week ago due to acute COPD exacerbation. Patient was discharged home on prednisone taper and antibiotics in the form of doxycycline. Patient's symptoms have been getting worse and was seen by his primary care physician today. Patient was sent back to ER. Chest x-ray showed chronic changes without acute pulmonary process EKG showed sinus rhythm. Laboratory data showed WBC 8.8 hemoglobin 15.0 and platelets 215 Sodium 137 potassium 4.7 chloride 101 bicarb is 28 BUN 22 and creatinine 0.76 and blood sugar is 204 and lactic acid 2.5 Liver enzymes are not elevated. Magnesium 1.6 Troponin x1 negative Influenza A and B-. RSV positive COVID-19 PCR not detected. 09/19/2022 Patient is lying in bed. Awake alert and oriented x3. Breath instructions slightly better compared to yesterday. Still having bilateral diffuse wheezing and scattered rhonchi. Cough without any sputum production. Requiring oxygen at 3 L via nasal cannula. Lactic acid coming down to 3.5 today. Laboratory data showed WBC 13.2 hemoglobin 13.3 and platelets 210 sodium 137 potassium 4.5 chloride 105 bicarb is 25 BUN 21 and creatinine 0.73. Blood sugar is 220. Calcium 8.0. Patient is being continued on IV steroids, DuoNebs, Pulmicort and performing stimulations. Also on azithromycin. Blood cultures negative so far. 09/20/2022 Patient is complaining of exertional dyspnea and shortness of breath. Not much improvement compared to yesterday. Still having bilateral diffuse wheezing and rhonchi. Currently requiring 3 L oxygen via nasal cannula. Afebrile. Cough without any sputum production. Patient is being continued on IV Solu-Medrol and DuoNebs and azithromycin. Laboratory data showed WBC 17.8 hemoglobin 12.1 and platelets 198 Sodium 140 potassium 4.3 chloride 105 bicarb is 22 BUN 21.8 and creatinine 0.8 and blood sugar is 168. Calcium 8.2. Current medications reviewed. Objective - Vital Signs Vital signs: Vital Signs Temp 97.8 F 09/20/22 14:00 Pulse 84 09/20/22 20:28 Resp 20 09/20/22 14:00 BP 102/55 09/20/22 14:00 Pulse Ox 93 L 09/20/22 14:00 FiO2 Intake & Output 09/20/22 09/20/22 09/21/22 06:59 18:59 06:59 Intake Total 100 Balance 100 Intake: Oral 100 Other: Voiding Method Toilet # Voids 2 3 - Exam PHYSICAL EXAMINATION: Patient is lying in the bed comfortably, no acute distress, awake alert and oriented.. HEENT: Normocephalic. Neck is supple. Pupils reactive. Nostrils clear. Oral cavi ty is moist. Neck reveals no JVD, carotid bruits, or thyromegaly. CHEST EXAMINATION: Trachea is central. Symmetrical expansion. Bilateral diffuse wheezing and scattered rhonchi. CARDIAC: Normal S1, S2 with no gallops. No murmurs ABDOMEN: Soft. Bowel sounds present. Nontender. No organomegaly. No abdominal bruits. Extremities: reveal no edema. No clubbing or cyanosis Neurologically awake, alert, oriented x3 with well-coordinated movements. No focal deficits noted Skin: No rash or skin lesions. Psychiatric: Coperative. Nonsuicidal, Musculoskeletal: No joint swelling or deformity. Normal range of motion. - Labs CBC & Chem 7: 09/20/22 05:33 09/20/22 05:33 Labs: Abnormal Lab Results - Last 24 Hours (Table) 09/20/22 09/20/22 09/20/22 Range/Units 00:48 05:33 05:33 WBC 17.86 H (4.50-10.00) X 10*3/uL RBC 3.97 L (4.40-5.60) X 10*6/uL Hgb 12.1 L (13.0-17.0) g/dL Hct 36.7 L (39.6-50.0) % Immature Gran # 0.22 H (0.00-0.04) X 10*3/uL Neutrophils # 16.59 H (1.80-7.70) X 10*3/uL Lymphocytes # 0.77 L (0.90-5.00) X 10*3/uL Eosinophils # 0 L (0.04-0.35) X 10*3/uL BUN/Creatinine Ratio 25.06 H (12.00-20.00) Ratio Glucose 168 H (70-110) mg/dL Plasma Lactic Acid Kuldeep 4.0 H* (0.7-2.0) mmol/L Calcium 8.2 L (8.7-10.3) mg/dL Microbiology - Last 24 Hours (Table) 09/18/22 11:55 Blood Culture - Preliminary Blood No Growth after 48 hours 09/18/22 11:55 Blood Culture - Preliminary Blood No Growth after 48 hours Assessment and Plan Assessment: Worsening shortness of breath secondary to acute COPD exacerbation. Acute RSV infection Lactic acidosis on admission. improving Chronic hypoxic respiratory failure secondary to COPD with FEV1 of 40% of predicted. On home oxygen 4 L at bedtime. 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 Patient will be continued on IV Solu-Medrol 60 mg every 6 hourly. Continue with DuoNebs, Pulmicort and Perforomist inhalation. Continue with antibiotics and follow-up azithromycin. Oxygen supplementation as needed. Pulmonary is on board. Continue to follow closely. Prognosis is guarded. Time with Patient: Greater than 30
[2022-09-21] MEDS: PANTOPRAZOLE 40 MG TABLET PO SCH ×2 (06:55→17:51)
[2022-09-21] MEDS: methylPREDNISolone SOD SUCCI 125 MG/2 ML VIAL IV SCH (06:55)
[2022-09-21] MEDS: ALBUTEROL NEBULIZED 2.5 MG/3 ML INHALATION SCH ×4 (08:54→19:12)
[2022-09-21] MEDS: IPRATROPIUM 0.5 MG/2.5 ML NEBU INHALATION SCH ×4 (08:54→19:12)
[2022-09-21] MEDS: FORMOTEROL FUMARATE 20 MCG/2 ML NEBU INHALATION SCH ×2 (08:54→19:13)
[2022-09-21 09:20] LABS: African American GFR (CKD) 96.5 (60.0-200.0); Anion Gap 11.5 mmol/L (10.00-18.00); BUN/Creat Ratio 24.77 Ratio (12.00-20.00); Blood Urea Nitrogen 23.9 mg/dL (9.0-27.0); Calcium 8.4 mg/dL (8.7-10.3); Carbon Dioxide 25.5 mmol/L (20.0-27.5); Non-African American GFR(CKD) 83.3 (60.0-200.0); Potassium 4.3 mmol/L (3.5-5.5)
[2022-09-21 09:23] LABS: Basophils # (A) 0.03 X 10*3/uL (0.00-0.10); Basophils % (A) 0.2 %; Eosinophils # (A) 0 X 10*3/uL (0.04-0.35); Eosinophils % (A) 0 %; HCT 38.7 % (39.6-50.0); HGB 12.7 g/dL (13.0-17.0); Immature Grans, Automated 1.2 %; Lymphocytes % (A) 3.9 %; MCH 30.8 pg (27.0-32.0); MCHC 32.8 g/dL (32.0-37.0); MCV 93.9 fL (80.0-97.0); Monocytes # (A) 0.32 X 10*3/uL (0.20-1.00); Monocytes % (A) 1.8 %; NRBC Per 100 WBC 0 /100 WBCS (0.0-0.0); Neutrophils # (A) 16.78 X 10*3/uL (1.80-7.70); Neutrophils % (A) 92.9 %; Platelet Count 221 X 10*3/uL (140-440); RBC 4.12 X 10*6/uL (4.40-5.60); RDW 12.1 % (11.5-14.5); WBC 18.05 X 10*3/uL (4.50-10.00)
[2022-09-21] MEDS: HEPARIN SODIUM,PORCINE/PF 5,000 UNIT/0.5 ML SYRINGE SQ SCH ×3 (10:02→23:49)
[2022-09-21] MEDS: FLUoxetine HCL 20 MG CAP PO SCH ×2 (10:03→10:04)
[2022-09-21] MEDS: AZITHROMYCIN 500 MG TAB PO SCH (10:04)
[2022-09-21] MEDS: CYANOCOBALAMIN 500 MCG TAB PO SCH (10:05)
[2022-09-21] MEDS: METOPROLOL TARTRATE 25 MG TAB PO SCH ×2 (10:05→20:08)
[2022-09-21] MEDS: LOSARTAN 25 MG TAB PO SCH (10:05)
[2022-09-21] MEDS: ASPIRIN 81 MG PO SCH (10:05)
[2022-09-21] MEDS: FOLIC ACID 1 MG TAB PO SCH (10:05)
[2022-09-21] MEDS: CHOLECALCIFEROL 125 MCG (5000 IU) TABLET PO SCH (10:06)
[2022-09-21] MEDS: ISOSORBIDE MONONITRATE ER 30 MG TAB.ER.24H PO SCH (10:06)
--- NOTE | 2022-09-21 10:28 | P.PN ---
Subjective Progress Note Date: 09/21/22 This is a 62-year-old male patient with known history of COPD with chronic hypoxic respiratory failure and an FEV1 of 40% of predicted. The patient limited on Spiriva and Symbicort on outpatient basis and the patient sees Dr. Dobbs on outpatient basis regarding his COPD. He was hospitalized approximately a week ago for an acute choked exacerbation patient was discharged home. The patient was completing a prednisone burst taper and while being intubated by the primary care physician, he was noted to be short of breath and was sent back to the hospital. Chest x-ray is consistent with COPD with some atelectatic change in lung bases. No airspace disease or pulmonary infiltrates. No fever. No c hills. No pleurisy. No swelling lower extremities. White cell cause of 8.8 with a hemoglobin of 15 and the patient has a platelet count of 15. Normal coagulation profile. Serum bicarb is at 28 with a sodium level of 137 potassium level of 4.7. Lactic acid level is at 2.7, admission, troponins are negative, LFTs are normal, proBNP level is nonelevated. Previous echocardiogram showed a preserved LV function. On today's evaluation of 09/19/2022, the patient is feeling slightly improved compared to yesterday. He still getting short of breath with limited amount of activity. He is on oxygen and currently is on 3 L nasal cannula. Otherwise, no other significant events. He was hospitalized yesterday to emergency because of an acute choked exacerbation. Lactic acid level peaked at 7.3 and dropped down to 2.4. Unresponsive 15.2 hemolyzed 15.3 and a platelet count of 210. BUN is 21 and a creatinine of 0.7. On today's evaluation of 09/20/2022, the patient is still short of breath bronchospastic and wheezy. I would say limited improvement since yesterday. Remains on bronchodilators and steroids. He remains on oxygen and is currently on 2 L. The visiting 117.8, hemoglobin 12.1, platelet count is at 198, normal electrolytes, lactic acid level dropped down to 3.4, BUN is 21 with a creatinine of 0.9. Remains on albuterol updrafts, Pulmicort Respules, Perforomist, IV Solu-Medrol 60 mg every 6 hours. Remains on Zithromax as an empiric antibiotic coverage. 09/21/2022, the patient gradually improving. He seems to be in a good mood today. He is considering undergoing home. He was treated with accommodation bronchodilators and steroids. He was also placed on a combination Perforomist and Pulmicort neb treatments twice a day. I stop the Pulmicort and this was causing some chest irritation. Is also on Zithromax.White cell count 18 with a hemoglobin of 12.7 and a platelet count of 221, sodium is at 140, BUN is at 23 with a creatinine of 1.0. Objective - Vital Signs Vital signs: Vital Signs Temp 97.7 F 09/21/22 08:00 Pulse 90 09/21/22 09:17 Resp 18 09/21/22 08:00 BP 153/85 09/21/22 08:00 Pulse Ox 95 09/21/22 08:54 FiO2 Intake & Output 09/20/22 09/21/22 09/21/22 18:59 06:59 18:59 Intake Total 100 Balance 100 Intake: Oral 100 Other: Voiding Method Toilet Toilet # Voids 3 4 - Exam GENERAL EXAM: Alert, active, pleasant 62-year-old male, and mild degree of respiratory distress currently on 3 L of oxygen by nasal cannula HEAD: Normocephalic. EYES: Normal reaction of pupils, equal size. NOSE: Clear with pink turbinates. THROAT: No erythema or exudates. NECK: No masses, no JVD. CHEST: No chest wall deformity. LUNGS: Equal air entry with no crackles, wheeze, rhonchi or dullness. The patient has diffuse extremity wheezes throughout the lung base bilaterally and there is prolongation of the escalation phase of breathing CVS: S1 and S2 normal with no audible murmur, regular rhythm. ABDOMEN: No hepatosplenomegaly, normal bowel sounds, no guarding or rigidity. SPINE: No scoliosis or deformity SKIN: No rashes CENTRAL NERVOUS SYSTEM: No focal deficits, tone is normal in all 4 extremities. EXTREMITIES: There is no peripheral edema. No clubbing, no cyanosis. Peripheral pulses are intact. - Labs CBC & Chem 7: 09/21/22 04:10 09/21/22 04:10 Labs: Abnormal Lab Results - Last 24 Hours (Table) 09/21/22 09/21/22 Range/Units 04:10 04:10 WBC 18.05 H (4.50-10.00) X 10*3/uL RBC 4.12 L (4.40-5.60) X 10*6/uL Hgb 12.7 L (13.0-17.0) g/dL Hct 38.7 L (39.6-50.0) % Immature Gran # 0.22 H (0.00-0.04) X 10*3/uL Neutrophils # 16.78 H (1.80-7.70) X 10*3/uL Lymphocytes # 0.70 L (0.90-5.00) X 10*3/uL Eosinophils # 0 L (0.04-0.35) X 10*3/uL BUN/Creatinine Ratio 24.77 H (12.00-20.00) Ratio Glucose 156 H (70-110) mg/dL Calcium 8.4 L (8.7-10.3) mg/dL Microbiology - Last 24 Hours (Table) 09/18/22 11:55 Blood Culture - Preliminary Blood No Growth after 48 hours 09/18/22 11:55 Blood Culture - Preliminary Blood No Growth after 48 hours Assessment and Plan Plan: Acute exacerbation of chronic obstructive pulmonary disease with unknown FEV1 value of 40% of predicted. The patient is having recurrent exacerbations. The patient has severe COPD with chronic hypoxic respiratory failure. The patient has a combination of Spiriva and Advair an outpatient basis. Exact cause of the recurrent exacerbation is not clear. The patient states that he is not smoking. No other environmental or acute patient exposures. Chest x-ray is consistent with COPD. CAT scan of the chest that was done June 2022 showed no evidence of any malignancy or any other acute abnormalities. Shortness of breath secondary to above Acute lactic acidosis because of labored breathing, improving Chronic hypoxic respiratory failure secondary to advanced COPD Former smoker History of coronary artery disease with previous stent placements Hypertension Hyperlipidemia Gastroesophageal reflux disease History of depression Plan Clinically improving Increase mobility FiO2 is currently at 2 L nasal cannula Continue albuterol and ipratropium nebulized treatments [id number] I'm going to discontinue the IV Solu-Medrol and put the patient prednisone burst taper, we'll start him on prednisone 40 mg on a daily basis. We'll need likely to be switched to Trelegy Ellipta on outpatient basis and probably a maintenance dose of prednisone to prevent any future exacerbations. the patient is currently taking Advair and Spiriva as maintenance and I discussed with them the possibility of being switched to Trelegy Ellipta on outpatient basis. We'll continue to follow, possible discharge in the next 24 hours
[2022-09-21] MEDS: predniSONE 20 MG TAB PO SCH (17:51)
[2022-09-21] MEDS: ATORVASTATIN 80 MG TAB PO SCH (20:08)
--- NOTE | 2022-09-22 01:19 | P.PN ---
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 Patient was in the hospital about a week ago due to acute COPD exacerbation. Patient was discharged home on prednisone taper and antibiotics in the form of doxycycline. Patient's symptoms have been getting worse and was seen by his primary care physician today. Patient was sent back to ER. Chest x-ray showed chronic changes without acute pulmonary process EKG showed sinus rhythm. Laboratory data showed WBC 8.8 hemoglobin 15.0 and platelets 215 Sodium 137 potassium 4.7 chloride 101 bicarb is 28 BUN 22 and creatinine 0.76 and blood sugar is 204 and lactic acid 2.5 Liver enzymes are not elevated. Magnesium 1.6 Troponin x1 negative Influenza A and B-. RSV positive COVID-19 PCR not detected. 09/19/2022 Patient is lying in bed. Awake alert and oriented x3. Breath instructions slightly better compared to yesterday. Still having bilateral diffuse wheezing and scattered rhonchi. Cough without any sputum production. Requiring oxygen at 3 L via nasal cannula. Lactic acid coming down to 3.5 today. Laboratory data showed WBC 13.2 hemoglobin 13.3 and platelets 210 sodium 137 potassium 4.5 chloride 105 bicarb is 25 BUN 21 and creatinine 0.73. Blood sugar is 220. Calcium 8.0. Patient is being continued on IV steroids, DuoNebs, Pulmicort and performing stimulations. Also on azithromycin. Blood cultures negative so far. 09/20/2022 Patient is complaining of exertional dyspnea and shortness of breath. Not much improvement compared to yesterday. Still having bilateral diffuse wheezing and rhonchi. Currently requiring 3 L oxygen via nasal cannula. Afebrile. Cough without any sputum production. Patient is being continued on IV Solu-Medrol and DuoNebs and azithromycin. Laboratory data showed WBC 17.8 hemoglobin 12.1 and platelets 198 Sodium 140 potassium 4.3 chloride 105 bicarb is 22 BUN 21.8 and creatinine 0.8 and blood sugar is 168. Calcium 8.2. 09/21/2022 Patient is currently sitting on side of the road. States that his breathing is slightly better compared to yesterday. Still having bilateral diffuse wheezing and scattered rhonchi. On oxygen 3 L via nasal cannula. Afebrile. Cough without any sputum production. Laboratory data showed WBC 18.0 hemoglobin 12.7 and platelets 221 BUN 23.1 and creatinine 1.0 and blood sugar is 146. Calcium 8.4. Patient remains on IV Solu-Medrol, DuoNebs and Pulmicort and Perforomist. Pulmonary is on board. Current medications reviewed. Objective - Vital Signs Vital signs: Vital Signs Temp 97.8 F 09/21/22 19:02 Pulse 82 09/21/22 19:29 Resp 18 09/21/22 19:29 BP 148/74 09/21/22 19:02 Pulse Ox 96 09/21/22 19:02 FiO2 Intake & Output 09/21/22 09/21/22 09/22/22 06:59 18:59 06:59 Other: Voiding Method Toilet # Voids 4 3 - Exam PHYSICAL EXAMINATION: Patient is lying in the bed comfortably, no acute distress, awake alert and oriented.. HEENT: Normocephalic. Neck is supple. Pupils reactive. Nostrils clear. Oral cavity is moist. Neck reveals no JVD, carotid bruits, or thyromegaly. CHEST EXAMINATION: Trachea is central. Symmetrical expansion. Bilateral diffuse wheezing and scattered rhonchi. CARDIAC: Normal S1, S2 with no gallops. No murmurs ABDOMEN: Soft. Bowel sounds present. Nontender. No organomegaly. No abdominal bruits. Extremities: reveal no edema. No clubbing or cyanosis Neurologically awake, alert, oriented x3 with well-coordinated movements. No focal deficits noted Skin: No rash or skin lesions. Psychiatric: Coperative. Nonsuicidal, Musculoskeletal: No joint swelling or deformity. Normal range of motion. - Labs CBC & Chem 7: 09/21/22 04:10 09/21/22 04:10 Labs: Abnormal Lab Results - Last 24 Hours (Table) 09/21/22 09/21/22 Range/Units 04:10 04:10 WBC 18.05 H (4.50-10.00) X 10*3/uL RBC 4.12 L (4.40-5.60) X 10*6/uL Hgb 12.7 L (13.0-17.0) g/dL Hct 38.7 L (39.6-50.0) % Immature Gran # 0.22 H (0.00-0.04) X 10*3/uL Neutrophils # 16.78 H (1.80-7.70) X 10*3/uL Lymphocytes # 0.70 L (0.90-5.00) X 10*3/uL Eosinophils # 0 L (0.04-0.35) X 10*3/uL BUN/Creatinine Ratio 24.77 H (12.00-20.00) Ratio Glucose 156 H (70-110) mg/dL Calcium 8.4 L (8.7-10.3) mg/dL Microbiology - Last 24 Hours (Table) 09/18/22 11:55 Blood Culture - Preliminary Blood No Growth after 72 hours 09/18/22 11:55 Blood Culture - Preliminary Blood No Growth after 72 hours Assessment and Plan Assessment: Worsening shortness of breath secondary to acute COPD exacerbation. Acute RSV infection Lactic acidosis on admission. improving Chronic hypoxic respiratory failure secondary to COPD with FEV1 of 40% of predicted. On home oxygen 4 L at bedtime. 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 Patient will be continued on IV Solu-Medrol 60 mg every 6 hourly. Continue with DuoNebs, Pulmicort and Perforomist inhalation. Continue with antibiotics and azithromycin. Oxygen supplementation as needed. Pulmonary is on board. Continue to follow closely. Prognosis is guarded. Time with Patient: Greater than 30
[2022-09-22] MEDS: PANTOPRAZOLE 40 MG TABLET PO SCH ×2 (06:32→16:45)
[2022-09-22] MEDS: ISOSORBIDE MONONITRATE ER 30 MG TAB.ER.24H PO SCH (08:31)
[2022-09-22] MEDS: FOLIC ACID 1 MG TAB PO SCH (08:31)
[2022-09-22] MEDS: predniSONE 20 MG TAB PO SCH (08:31)
[2022-09-22] MEDS: CYANOCOBALAMIN 500 MCG TAB PO SCH (08:31)
[2022-09-22] MEDS: CHOLECALCIFEROL 125 MCG (5000 IU) TABLET PO SCH (08:31)
[2022-09-22] MEDS: METOPROLOL TARTRATE 25 MG TAB PO SCH ×2 (08:31→20:52)
[2022-09-22] MEDS: LOSARTAN 25 MG TAB PO SCH (08:31)
[2022-09-22] MEDS: ASPIRIN 81 MG PO SCH (08:31)
[2022-09-22] MEDS: FLUoxetine HCL 20 MG CAP PO SCH ×2 (08:31)
[2022-09-22] MEDS: HEPARIN SODIUM,PORCINE/PF 5,000 UNIT/0.5 ML SYRINGE SQ SCH ×3 (08:32→20:53)
[2022-09-22] MEDS: MORPHINE SULFATE 2 MG/ML SYRINGE IVP PRN (08:39)
[2022-09-22] MEDS: IPRATROPIUM 0.5 MG/2.5 ML NEBU INHALATION SCH ×2 (09:18→13:05)
[2022-09-22] MEDS: ALBUTEROL NEBULIZED 2.5 MG/3 ML INHALATION SCH ×2 (09:18→13:07)
[2022-09-22] MEDS: FORMOTEROL FUMARATE 20 MCG/2 ML NEBU INHALATION SCH (09:18)
[2022-09-22 10:48] LABS: Basophils # (A) 0.02 X 10*3/uL (0.00-0.10); Basophils % (A) 0.2 %; Eosinophils # (A) 0 X 10*3/uL (0.04-0.35); Eosinophils % (A) 0 %; HCT 36.5 % (39.6-50.0); HGB 12.3 g/dL (13.0-17.0); Immature Grans, Automated 1.4 %; Lymphocytes # (A) 0.61 X 10*3/uL (0.90-5.00); Lymphocytes % (A) 5.3 %; MCH 30.8 pg (27.0-32.0); MCHC 33.7 g/dL (32.0-37.0); MCV 91.5 fL (80.0-97.0); Mean Platelet Volume 9.7 fL (9.5-12.2); Monocytes # (A) 0.54 X 10*3/uL (0.20-1.00); Monocytes % (A) 4.7 %; NRBC Per 100 WBC 0 /100 WBCS (0.0-0.0); Neutrophils # (A) 10.16 X 10*3/uL (1.80-7.70); Neutrophils % (A) 88.4 %; Platelet Count 176 X 10*3/uL (140-440); RBC 3.99 X 10*6/uL (4.40-5.60); RDW 12.1 % (11.5-14.5); WBC 11.49 X 10*3/uL (4.50-10.00)
[2022-09-22 10:51] LABS: African American GFR (CKD) 110.5 (60.0-200.0); Anion Gap 10.1 mmol/L (10.00-18.00); BUN/Creat Ratio 29.94 Ratio (12.00-20.00); Blood Urea Nitrogen 23.8 mg/dL (9.0-27.0); Calcium 7.9 mg/dL (8.7-10.3); Non-African American GFR(CKD) 95.3 (60.0-200.0); Potassium 4.3 mmol/L (3.5-5.5)
[2022-09-22] MEDS: methylPREDNISolone SOD SUCCI 125 MG/2 ML VIAL IV SCH ×2 (12:15→17:45)
--- NOTE | 2022-09-22 14:29 | PN ---
PROGRESS NOTE DATE OF SERVICE: 09/22/2022 SUBJECTIVE: This 62-year-old gentleman was admitted with COPD cute exacerbation, complaining of still shortness of breath. The patient also had active RSV infection. PHYSICAL EXAMINATION: VITAL SIGNS: Pulse is 68, blood pressure 130/26, and respirations 18. HEENT: Conjunctivae normal. CARDIOVASCULAR: S1, S2 respiration bilateral scattered rhonchi. No expiratory wheezing. ABDOMEN: Soft. LABORATORY DATA: Labs reviewed. ASSESSMENT: 1. Chronic obstructive pulmonary disease acute exacerbation. 2. Acute RSV infection. 3. Chronic hypoxic respiratory failure. 4. Coronary artery disease. 5. Multiple medical issues. RECOMMENDATIONS: 1. Recommend to continue current management. Continue symptomatic treatment with bronchodilators. Continue with IV steroids, which has been restarted today. Repeat labs tomorrow. Guarded prognosis. 2. Further recommendations to follow. CHASE / MANUELITO: [id number] /
--- NOTE | 2022-09-22 15:01 | P.PN ---
Subjective Progress Note Date: 09/22/22 This is a 62-year-old male patient with known history of COPD with chronic hypoxic respiratory failure and an FEV1 of 40% of predicted. The patient limited on Spiriva and Symbicort on outpatient basis and the patient sees Dr. Dobbs on outpatient basis regarding his COPD. He was hospitalized approximately a week ago for an acute choked exacerbation patient was discharged home. The patient was completing a prednisone burst taper and while being intubated by the primary care physician, he was noted to be short of breath and was sent back to the hospital. Chest x-ray is consistent with COPD with some atelectatic change in lung bases. No airspace disease or pulmonary infiltrates. No fever. No ch ills. No pleurisy. No swelling lower extremities. White cell cause of 8.8 with a hemoglobin of 15 and the patient has a platelet count of 15. Normal coagulation profile. Serum bicarb is at 28 with a sodium level of 137 potassium level of 4.7. Lactic acid level is at 2.7, admission, troponins are negative, LFTs are normal, proBNP level is nonelevated. Previous echocardiogram showed a preserved LV function. On today's evaluation of 09/19/2022, the patient is feeling slightly improved compared to yesterday. He still getting short of breath with limited amount of activity. He is on oxygen and currently is on 3 L nasal cannula. Otherwise, no other significant events. He was hospitalized yesterday to emergency because of an acute choked exacerbation. Lactic acid level peaked at 7.3 and dropped down to 2.4. Unresponsive 15.2 hemolyzed 15.3 and a platelet count of 210. BUN is 21 and a creatinine of 0.7. On today's evaluation of 09/20/2022, the patient is still short of breath bronchospastic and wheezy. I would say limited improvement since yesterday. Remains on bronchodilators and steroids. He remains on oxygen and is currently on 2 L. The visiting 117.8, hemoglobin 12.1, platelet count is at 198, normal electrolytes, lactic acid level dropped down to 3.4, BUN is 21 with a creatinine of 0.9. Remains on albuterol updrafts, Pulmicort Respules, Perforomist, IV Solu-Medrol 60 mg every 6 hours. Remains on Zithromax as an empiric antibiotic coverage. 09/21/2022, the patient gradually improving. He seems to be in a good mood today. He is considering undergoing home. He was treated with accommodation bronchodilators and steroids. He was also placed on a combination Perforomist and Pulmicort neb treatments twice a day. I stop the Pulmicort and this was causing some chest irritation. Is also on Zithromax.White cell count 18 with a hemoglobin of 12.7 and a platelet count of 221, sodium is at 140, BUN is at 23 with a creatinine of 1.0. The patient is seen today 09/22/2022 in follow-up on the regular medical floor. He is currently awake and alert in no acute distress. He is unfortunately having some recurrent truncal spasm and wheezing. He is maintaining O2 saturation 90s on 3 L/m per nasal cannula. Not quite back to his baseline. Blood cultures reveal no growth. White count 11.4. Hemoglobin 12.3. Sodium 139. Potassium 4.3. Bicarb 25. BUN 24. Creatinine 0.8. Glucose 169. He remains on bronchodilators, prednisone taper. Heparin for DVT prophylaxis. Objective - Vital Signs Vital signs: Vital Signs Temp 97.9 F 09/22/22 07:02 Pulse 70 09/22/22 13:27 Resp 18 09/22/22 08:44 BP 127/67 09/22/22 07:02 Pulse Ox 96 09/22/22 09:18 FiO2 Intake & Output 09/21/22 09/22/22 09/22/22 18:59 06:59 18:59 Intake Total 200 Balance 200 Intake: Oral 200 Other: Voiding Method Toilet Toilet # Voids 3 3 - Exam GENERAL EXAM: Alert, pleasant 62-year-old male, on 3 L nasal cannula, fairly comfortable in no apparent distress. HEAD: Normocephalic. EYES: Normal reaction of pupils, equal size. NOSE: Clear with pink turbinates. THROAT: No erythema or exudates. NECK: No masses, no JVD. CHEST: No chest wall deformity. LUNGS: Equal air entry with bilateral end expiratory wheeze, diminished. CVS: S1 and S2 normal with no audible murmur, regular rhythm. ABDOMEN: No hepatosplenomegaly, normal bowel sounds, no guarding or rigidity. SPINE: No scoliosis or deformity SKIN: No rashes CENTRAL NERVOUS SYSTEM: No focal deficits, tone is normal in all 4 extremities. EXTREMITIES: There is no peripheral edema. No clubbing, no cyanosis. Peripheral pulses are intact. - Labs CBC & Chem 7: 09/22/22 06:24 09/22/22 06:24 Labs: Abnormal Lab Results - Last 24 Hours (Table) 09/22/22 09/22/22 Range/Units 06:24 06:24 WBC 11.49 H (4.50-10.00) X 10*3/uL RBC 3.99 L (4.40-5.60) X 10*6/uL Hgb 12.3 L (13.0-17.0) g/dL Hct 36.5 L (39.6-50.0) % Immature Gran # 0.16 H (0.00-0.04) X 10*3/uL Neutrophils # 10.16 H (1.80-7.70) X 10*3/uL Lymphocytes # 0.61 L (0.90-5.00) X 10*3/uL Eosinophils # 0 L (0.04-0.35) X 10*3/uL BUN/Creatinine Ratio 29.94 H (12.00-20.00) Ratio Glucose 169 H (70-110) mg/dL Calcium 7.9 L (8.7-10.3) mg/dL Microbiology - Last 24 Hours (Table) 09/18/22 11:55 Blood Culture - Preliminary Blood No Growth after 96 hours 09/18/22 11:55 Blood Culture - Preliminary Blood No Growth after 72 hours Assessment and Plan Assessment: Acute exacerbation of chronic obstructive pulmonary disease with unknown FEV1 value of 40% of predicted. The patient is having recurrent exacerbations. The patient has severe COPD with chronic hypoxic respiratory failure. The patient has a combination of Spiriva and Advair an outpatient basis. Exact cause of the recurrent exacerbation is not clear. The patient states that he is not smoking. No other environmental or acute patient exposures. Chest x-ray is consistent with COPD. CAT scan of the chest that was done June 2022 showed no evidence of any malignancy or any other acute abnormalities. Shortness of breath secondary to above Acute lactic acidosis because of labored breathing, improving Chronic hypoxic respiratory failure secondary to advanced COPD Former smoker History of coronary artery disease with previous stent placements Hypertension Hyperlipidemia Gastroesophageal reflux disease History of depression Plan: The patient was seen and evaluated Medications and labs reviewed Still not quite back to baseline Discontinue prednisone taper, re-initiate IV Solu-Medrol Continue bronchodilators Heparin for DVT prophylaxis We'll continue to follow I have personally seen and examined the patient, performed the documentation and the assessment and plan as written. Number of minutes spent on the visit: 10.
[2022-09-22] MEDS ORDERED: SYMBICORT 80-4.5 MCG INHALER INHALATION SCH (20:00)
[2022-09-22] MEDS: ATORVASTATIN 80 MG TAB PO SCH (20:52)
[2022-09-22] MEDS: ADVAIR INHALATION SCH (20:52)
[2022-09-23] MEDS: methylPREDNISolone SOD SUCCI 125 MG/2 ML VIAL IV SCH ×5 (00:23→23:21)
[2022-09-23] MEDS: ZOLPIDEM 5 MG TAB PO PRN ×2 (00:26→21:05)
[2022-09-23] MEDS: PANTOPRAZOLE 40 MG TABLET PO SCH ×2 (07:52→17:26)
[2022-09-23] MEDS: METOPROLOL TARTRATE 25 MG TAB PO SCH ×2 (07:53→21:04)
[2022-09-23] MEDS: ASPIRIN 81 MG PO SCH (07:53)
[2022-09-23] MEDS: CHOLECALCIFEROL 125 MCG (5000 IU) TABLET PO SCH (07:53)
[2022-09-23] MEDS: FOLIC ACID 1 MG TAB PO SCH (07:53)
[2022-09-23] MEDS: CYANOCOBALAMIN 500 MCG TAB PO SCH (07:53)
[2022-09-23] MEDS: LOSARTAN 25 MG TAB PO SCH (07:53)
[2022-09-23] MEDS: ISOSORBIDE MONONITRATE ER 30 MG TAB.ER.24H PO SCH (07:53)
[2022-09-23] MEDS: HEPARIN SODIUM,PORCINE/PF 5,000 UNIT/0.5 ML SYRINGE SQ SCH ×3 (07:54→23:21)
[2022-09-23] MEDS: FLUoxetine HCL 20 MG CAP PO SCH ×2 (07:54)
[2022-09-23] MEDS: ADVAIR INHALATION SCH ×2 (08:40→20:12)
[2022-09-23] MEDS: ANORO ELLIPTA 62.5 MCG/25 MCG INHALATION SCH (08:40)
[2022-09-23] MEDS: IPRATROPIUM 0.5 MG/2.5 ML NEBU INHALATION PRN ×2 (08:42→20:10)
[2022-09-23] MEDS: ALBUTEROL NEBULIZED 2.5 MG/3 ML INHALATION PRN (08:43)
[2022-09-23 11:06] LABS: Basophils # (A) 0.01 X 10*3/uL (0.00-0.10); Basophils % (A) 0.1 %; Eosinophils # (A) 0 X 10*3/uL (0.04-0.35); Eosinophils % (A) 0 %; HCT 36.8 % (39.6-50.0); HGB 12.2 g/dL (13.0-17.0); Immature Grans, Automated 2.2 %; Lymphocytes # (A) 0.53 X 10*3/uL (0.90-5.00); Lymphocytes % (A) 5.3 %; MCH 30.1 pg (27.0-32.0); MCHC 33.2 g/dL (32.0-37.0); MCV 90.9 fL (80.0-97.0); Mean Platelet Volume 9.8 fL (9.5-12.2); Monocytes # (A) 0.21 X 10*3/uL (0.20-1.00); Monocytes % (A) 2.1 %; NRBC Per 100 WBC 0.2 /100 WBCS (0.0-0.0); Neutrophils # (A) 9.07 X 10*3/uL (1.80-7.70); Neutrophils % (A) 90.3 %; Platelet Count 193 X 10*3/uL (140-440); RBC 4.05 X 10*6/uL (4.40-5.60); WBC 10.04 X 10*3/uL (4.50-10.00)
[2022-09-23 11:17] LABS: African American GFR (CKD) 110.1 (60.0-200.0); Anion Gap 11.8 mmol/L (10.00-18.00); BUN/Creat Ratio 27.47 Ratio (12.00-20.00); Calcium 7.9 mg/dL (8.7-10.3); Carbon Dioxide 23.7 mmol/L (20.0-27.5); Potassium 3.9 mmol/L (3.5-5.5)
[2022-09-23] MEDS: ALBUTEROL NEBULIZED 2.5 MG/3 ML INHALATION SCH (12:02)
[2022-09-23] MEDS: IPRATROPIUM 0.5 MG/2.5 ML NEBU INHALATION SCH (12:03)
--- NOTE | 2022-09-23 13:48 | P.PN ---
Subjective Progress Note Date: 09/23/22 This is a 62-year-old male patient with known history of COPD with chronic hypoxic respiratory failure and an FEV1 of 40% of predicted. The patient limited on Spiriva and Symbicort on outpatient basis and the patient sees Dr. Dobbs on outpatient basis regarding his COPD. He was hospitalized approximately a week ago for an acute choked exacerbation patient was discharged home. The patient was completing a prednisone burst taper and while being intubated by the primary care physician, he was noted to be short of breath and was sent back to the hospital. Chest x-ray is consistent with COPD with some atelectatic change in lung bases. No airspace disease or pulmonary infiltrates. No fever. No ch ills. No pleurisy. No swelling lower extremities. White cell cause of 8.8 with a hemoglobin of 15 and the patient has a platelet count of 15. Normal coagulation profile. Serum bicarb is at 28 with a sodium level of 137 potassium level of 4.7. Lactic acid level is at 2.7, admission, troponins are negative, LFTs are normal, proBNP level is nonelevated. Previous echocardiogram showed a preserved LV function. On today's evaluation of 09/19/2022, the patient is feeling slightly improved compared to yesterday. He still getting short of breath with limited amount of activity. He is on oxygen and currently is on 3 L nasal cannula. Otherwise, no other significant events. He was hospitalized yesterday to emergency because of an acute choked exacerbation. Lactic acid level peaked at 7.3 and dropped down to 2.4. Unresponsive 15.2 hemolyzed 15.3 and a platelet count of 210. BUN is 21 and a creatinine of 0.7. On today's evaluation of 09/20/2022, the patient is still short of breath bronchospastic and wheezy. I would say limited improvement since yesterday. Remains on bronchodilators and steroids. He remains on oxygen and is currently on 2 L. The visiting 117.8, hemoglobin 12.1, platelet count is at 198, normal electrolytes, lactic acid level dropped down to 3.4, BUN is 21 with a creatinine of 0.9. Remains on albuterol updrafts, Pulmicort Respules, Perforomist, IV Solu-Medrol 60 mg every 6 hours. Remains on Zithromax as an empiric antibiotic coverage. 09/21/2022, the patient gradually improving. He seems to be in a good mood today. He is considering undergoing home. He was treated with accommodation bronchodilators and steroids. He was also placed on a combination Perforomist and Pulmicort neb treatments twice a day. I stop the Pulmicort and this was causing some chest irritation. Is also on Zithromax.White cell count 18 with a hemoglobin of 12.7 and a platelet count of 221, sodium is at 140, BUN is at 23 with a creatinine of 1.0. The patient is seen today 09/22/2022 in follow-up on the regular medical floor. He is currently awake and alert in no acute distress. He is unfortunately having some recurrent truncal spasm and wheezing. He is maintaining O2 saturation 90s on 3 L/m per nasal cannula. Not quite back to his baseline. Blood cultures reveal no growth. White count 11.4. Hemoglobin 12.3. Sodium 139. Potassium 4.3. Bicarb 25. BUN 24. Creatinine 0.8. Glucose 169. He remains on bronchodilators, prednisone taper. Heparin for DVT prophylaxis. The patient is seen today 09/23/2022 in follow-up on the regular medical floor. He is awake and alert in no acute distress. Still with some bronchospasm and wheezing. Not quite back to his baseline. He is maintaining O2 saturations in the 90s on 3 L/m per nasal cannula. Blood cultures reveal no growth. White count 10.0. Hemoglobin 12.2. Sodium 137. Potassium 3.9. Bicarb 24. BUN 22. Creatinine 0.8. Glucose 218. He is continued on bronchodilators. IV Solu- Medrol. Heparin for DVT prophylaxis. Objective - Vital Signs Vital signs: Vital Signs Temp 97.7 F 09/23/22 07:23 Pulse 70 09/23/22 12:04 Resp 19 09/23/22 09:01 BP 138/81 09/23/22 07:23 Pulse Ox 94 L 09/23/22 08:43 FiO2 Intake & Output 09/22/22 09/23/22 09/23/22 18:59 06:59 18:59 Intake Total 500 200 Balance 500 200 Intake: Oral 500 200 Other: Voiding Method Toilet Toilet # Voids 3 3 3 # Bowel Movements 1 1 - Exam GENERAL EXAM: Alert, 62-year-old male, on 3 L nasal cannula, fairly comfortable in no apparent distress. HEAD: Normocephalic. EYES: Normal reaction of pupils, equal size. NOSE: Clear with pink turbinates. THROAT: No erythema or exudates. NECK: No masses, no JVD. CHEST: No chest wall deformity. LUNGS: Equal air entry with bilateral end expiratory wheeze, diminished. CVS: S1 and S2 normal with no audible murmur, regular rhythm. ABDOMEN: No hepatosplenomegaly, normal bowel sounds, no guarding or rigidity. SPINE: No scoliosis or deformity SKIN: No rashes CENTRAL NERVOUS SYSTEM: No focal deficits, tone is normal in all 4 extremities. EXTREMITIES: There is no peripheral edema. No clubbing, no cyanosis. Periphe ral pulses are intact. - Labs CBC & Chem 7: 09/23/22 05:47 09/23/22 05:47 Labs: Abnormal Lab Results - Last 24 Hours (Table) 09/23/22 09/23/22 Range/Units 05:47 05:47 WBC 10.04 H (4.50-10.00) X 10*3/uL RBC 4.05 L (4.40-5.60) X 10*6/uL Hgb 12.2 L (13.0-17.0) g/dL Hct 36.8 L (39.6-50.0) % Absolute Nucleated RBC 0.02 H (0.00-0.00) X 10*3/uL Immature Gran # 0.22 H (0.00-0.04) X 10*3/uL Neutrophils # 9.07 H (1.80-7.70) X 10*3/uL Lymphocytes # 0.53 L (0.90-5.00) X 10*3/uL Eosinophils # 0 L (0.04-0.35) X 10*3/uL NRBC/100 WBC Diff 0.2 H (0.0-0.0) /100 WBCS BUN/Creatinine Ratio 27.47 H (12.00-20.00) Ratio Glucose 218 H (70-110) mg/dL Calcium 7.9 L (8.7-10.3) mg/dL Microbiology - Last 24 Hours (Table) 09/18/22 11:55 Blood Culture - Preliminary Blood No Growth after 96 hours 09/18/22 11:55 Blood Culture - Preliminary Blood No Growth after 96 hours Assessment and Plan Assessment: Acute exacerbation of chronic obstructive pulmonary disease with unknown FEV1 value of 40% of predicted. The patient is having recurrent exacerbations. The patient has severe COPD with chronic hypoxic respiratory failure. The patient has a combination of Spiriva and Advair an outpatient basis. Exact cause of the recurrent exacerbation is not clear. The patient states that he is not smoking. No other environmental or acute patient exposures. Chest x-ray is consistent with COPD. Acute lactic acidosis because of labored breathing, improving Chronic hypoxic respiratory failure secondary to advanced COPD Former smoker History of coronary artery disease with previous stent placements Hypertension Hyperlipidemia Gastroesophageal reflux disease History of depression Plan: The patient was seen and evaluated Medications and labs reviewed Still not quite back to baseline Continue IV Solu-Medrol Continue bronchodilators Heparin for DVT prophylaxis Titrate the FiO2 as tolerated Increase his activity as tolerated We'll continue to follow I have personally seen and examined the patient, performed the documentation and the assessment and plan as written. Number of minutes spent on the visit: 10.
[2022-09-23] MEDS: ATORVASTATIN 80 MG TAB PO SCH (21:04)
[2022-09-24] MEDS: ALBUTEROL NEBULIZED 2.5 MG/3 ML INHALATION PRN ×5 (04:51→21:15)
[2022-09-24] MEDS: IPRATROPIUM 0.5 MG/2.5 ML NEBU INHALATION PRN ×5 (04:51→21:15)
[2022-09-24] MEDS: methylPREDNISolone SOD SUCCI 125 MG/2 ML VIAL IV SCH ×4 (05:18→23:48)
[2022-09-24] MEDS: PANTOPRAZOLE 40 MG TABLET PO SCH ×2 (05:19→16:59)
[2022-09-24] MEDS: ANORO ELLIPTA 62.5 MCG/25 MCG INHALATION SCH (08:38)
[2022-09-24] MEDS: ADVAIR INHALATION SCH ×2 (08:38→21:15)
[2022-09-24] MEDS: ASPIRIN 81 MG PO SCH (09:31)
[2022-09-24] MEDS: CYANOCOBALAMIN 500 MCG TAB PO SCH (09:31)
[2022-09-24] MEDS: HEPARIN SODIUM,PORCINE/PF 5,000 UNIT/0.5 ML SYRINGE SQ SCH ×3 (09:31→23:49)
[2022-09-24] MEDS: FOLIC ACID 1 MG TAB PO SCH (09:31)
[2022-09-24] MEDS: METOPROLOL TARTRATE 25 MG TAB PO SCH ×2 (09:32→21:46)
[2022-09-24] MEDS: ISOSORBIDE MONONITRATE ER 30 MG TAB.ER.24H PO SCH (09:32)
[2022-09-24] MEDS: CHOLECALCIFEROL 125 MCG (5000 IU) TABLET PO SCH (09:32)
[2022-09-24] MEDS: LOSARTAN 25 MG TAB PO SCH (09:32)
[2022-09-24] MEDS: FLUoxetine HCL 20 MG CAP PO SCH ×2 (09:54)
--- NOTE | 2022-09-24 12:49 | P.PN ---
Subjective Progress Note Date: 09/24/22 The patient is a 62-year-old male patient with a past medical history of [place] x 3 s/p PCI, COVID, GERD, HTN, HLD. He also has a history of severe COPD with chronic hypoxic respiratory failure and an FEV1 of 40% of predicted. He presented to the emergency department on 09/18/22 with shortness of breath. He w as hospitalized approximately a week ago for an acute COPD exacerbation and the patient was discharged home on antibiotics and steroids. CXR is consistent with COPD with some atelectatic change in lung bases. No airspace disease or pulmonary infiltrates. No fever or chills. No pleurisy. No swelling lower extremities. WBC 8.8, Hgb 15. The patient has a platelet count of 215. Serum bicarb is at 28 with a sodium level of 137 potassium level of 4.7. Lactic acid level is at 2.7, admission, troponins are negative, LFTs are normal, BNP level is nonelevated. Previous echocardiogram showed a preserved LV function. COVID- 19 not detected, influenza A and B not detected. RSV positive. Objective - Vital Signs Vital signs: Vital Signs Temp 98.6 F 09/24/22 08:15 Pulse 84 09/24/22 12:27 Resp 18 09/24/22 08:15 BP 137/68 09/24/22 08:15 Pulse Ox 92 L 09/24/22 10:00 FiO2 Intake & Output 09/23/22 09/24/22 09/24/22 18:59 06:59 18:59 Intake Total 980 Balance 980 Intake: Oral 980 Other: Voiding Method Toilet # Voids 2 3 # Bowel Movements 1 - Exam General: Well developed, well nourished. No acute distress. HEENT: Head is atraumatic, normocephalic. Lungs: Respirations even and nonlabored. On 3L NC Abdomen/GI: Soft, non-distended. No guarding, rigidity, or abdominal tenderness. Skin: Warm and dry Neurologic: Alert and oriented 3, CN II-XII grossly intact. No focal deficits. Psychiatric: Appropriate mood and affect. - Labs CBC & Chem 7: 09/23/22 05:47 09/23/22 05:47 Labs: Microbiology - Last 24 Hours (Table) 09/18/22 11:55 Blood Culture - Preliminary Blood No Growth after 120 hours 09/18/22 11:55 Blood Culture - Preliminary Blood No Growth after 120 hours Assessment and Plan Assessment: Symptoms * Pain - 08/01,chest soreness from coughing, continue [place] * Fatigue - yes * SOB - With activity. Continue Advair, albuterol, Anoro Ellipta, Atrovent, and Solu-Medrol. * Insomnia - Yes, continue Ambien, continue Prozac * N/V - no * Anxiety - yes, continue Prozac * Depression - occasional * Confusion - no * Agitation - no * Hallucinations - no * Appetite/weight loss - no recent weight loss, patient has decreased appetite. Ensure supplements added * Dysphagia - no * Constipation - no, LBM today * Incontinence - No * Itch - No * Cough - yes Tessalon Perles as needed Plan: Summary/Goals - the patient is resting in bed. He is on 3 L O2 nasal cannula. The patient reports feeling much better overall. He does report shortness of breath with exertion. Discharge plans remain unchanged. He will go home with his and has agreed to palliative care. Discussed CODE STATUS with patient. He stated he wanted to remain a full code because that's what his wishes. He was encouraged to have a conversation with his regarding his wishes. For now he would like to remain a full code. Recommendations - home with palliative care when cleared medically Advanced Directives - none on file Code Status - full code Thank you for this consultation Peggy Johnson [facility] [id number] Email: [email or web address]
--- NOTE | 2022-09-24 13:09 | PN ---
PROGRESS NOTE DATE OF SERVICE: 09/24/2022 SUBJECTIVE: This 62-year-old gentleman was admitted with COPD acute exacerbation, also had RSV infection also. No chest pain, no palpitations, no fever. PHYSICAL EXAMINATION: VITAL SIGNS: Pulse is 84, blood pressure is 136/60, respirations 17. HEENT: Conjunctivae normal. NECK: No jugular venous distention. CARDIOVASCULAR: S1, S2 muffled. RESPIRATIONS: Bilateral scattered rhonchi and crackles. ABDOMEN: Soft. NERVOUS SYSTEM: No focal deficits. LABORATORY DATA: WBC 10.4, rest of the labs are noted. ASSESSMENT: 1. Chronic obstructive pulmonary disease acute exacerbation. 2. Acute RSV infection. 3. Chronic hypoxic respiratory failure. 4. Coronary artery disease. 5. Multiple medical issues. RECOMMENDATIONS: Recommended to continue current management, continue symptomatic treatment. Otherwise, continue with bronchodilators, IV steroids. Closely follow with Pulmonary. Prognosis guarded. Further recommendations to follow. MMZAKIYAL / RADHAN: [id number] /
--- NOTE | 2022-09-24 13:32 | P.PN ---
Subjective Progress Note Date: 09/24/22 This is a 62-year-old male patient with known history of COPD with chronic hypoxic respiratory failure and an FEV1 of 40% of predicted. The patient limited on Spiriva and Symbicort on outpatient basis and the patient sees Dr. Dobbs on outpatient basis regarding his COPD. He was hospitalized approximately a week ago for an acute choked exacerbation patient was discharged home. The patient was completing a prednisone burst taper and while being intubated by the primary care physician, he was noted to be short of breath and was sent back to the hospital. Chest x-ray is consistent with COPD with some atelectatic change in lung bases. No airspace disease or pulmonary infiltrates. No fever. No ch ills. No pleurisy. No swelling lower extremities. White cell cause of 8.8 with a hemoglobin of 15 and the patient has a platelet count of 15. Normal coagulation profile. Serum bicarb is at 28 with a sodium level of 137 potassium level of 4.7. Lactic acid level is at 2.7, admission, troponins are negative, LFTs are normal, proBNP level is nonelevated. Previous echocardiogram showed a preserved LV function. On today's evaluation of 09/19/2022, the patient is feeling slightly improved compared to yesterday. He still getting short of breath with limited amount of activity. He is on oxygen and currently is on 3 L nasal cannula. Otherwise, no other significant events. He was hospitalized yesterday to emergency because of an acute choked exacerbation. Lactic acid level peaked at 7.3 and dropped down to 2.4. Unresponsive 15.2 hemolyzed 15.3 and a platelet count of 210. BUN is 21 and a creatinine of 0.7. On today's evaluation of 09/20/2022, the patient is still short of breath bronchospastic and wheezy. I would say limited improvement since yesterday. Remains on bronchodilators and steroids. He remains on oxygen and is currently on 2 L. The visiting 117.8, hemoglobin 12.1, platelet count is at 198, normal electrolytes, lactic acid level dropped down to 3.4, BUN is 21 with a creatinine of 0.9. Remains on albuterol updrafts, Pulmicort Respules, Perforomist, IV Solu-Medrol 60 mg every 6 hours. Remains on Zithromax as an empiric antibiotic coverage. 09/21/2022, the patient gradually improving. He seems to be in a good mood today. He is considering undergoing home. He was treated with accommodation bronchodilators and steroids. He was also placed on a combination Perforomist and Pulmicort neb treatments twice a day. I stop the Pulmicort and this was causing some chest irritation. Is also on Zithromax.White cell count 18 with a hemoglobin of 12.7 and a platelet count of 221, sodium is at 140, BUN is at 23 with a creatinine of 1.0. The patient is seen today 09/22/2022 in follow-up on the regular medical floor. He is currently awake and alert in no acute distress. He is unfortunately having some recurrent truncal spasm and wheezing. He is maintaining O2 saturation 90s on 3 L/m per nasal cannula. Not quite back to his baseline. Blood cultures reveal no growth. White count 11.4. Hemoglobin 12.3. Sodium 139. Potassium 4.3. Bicarb 25. BUN 24. Creatinine 0.8. Glucose 169. He remains on bronchodilators, prednisone taper. Heparin for DVT prophylaxis. The patient is seen today 09/23/2022 in follow-up on the regular medical floor. He is awake and alert in no acute distress. Still with some bronchospasm and wheezing. Not quite back to his baseline. He is maintaining O2 saturations in the 90s on 3 L/m per nasal cannula. Blood cultures reveal no growth. White count 10.0. Hemoglobin 12.2. Sodium 137. Potassium 3.9. Bicarb 24. BUN 22. Creatinine 0.8. Glucose 218. He is continued on bronchodilators. IV Solu- Medrol. Heparin for DVT prophylaxis. The patient is seen today 09/24/2022 in follow-up on the regular medical floor. He is currently sitting up in bed. Awake and alert in no acute distress. He has been slow to progress. He did test positive for RSV back on 09/18/2022. He is still congested and wheezing. Maintaining O2 saturations in the 90s on 3 L. He's been afebrile. Hemodynamically stable. Blood cultures revealed no growth. He remains on IV Solu-Medrol, Anoro, albuterol/Atrovent inhalations, Tessalon Perles. Heparin for DVT prophylaxis. Objective - Vital Signs Vital signs: Vital Signs Temp 98.6 F 09/24/22 08:15 Pulse 92 09/24/22 12:37 Resp 18 09/24/22 08:15 BP 137/68 09/24/22 08:15 Pulse Ox 92 L 09/24/22 10:00 FiO2 Intake & Output 09/23/22 09/24/22 09/24/22 18:59 06:59 18:59 Intake Total 980 Balance 980 Intake: Oral 980 Other: Voiding Method Toilet # Voids 2 3 # Bowel Movements 1 - Exam GENERAL EXAM: Alert, pleasant 62-year-old male, on 3 L nasal cannula, comfortable in no apparent distress. HEAD: Normocephalic. EYES: Normal reaction of pupils, equal size. NOSE: Clear with pink turbinates. THROAT: No erythema or exudates. NECK: No masses, no JVD. CHEST: No chest wall deformity. LUNGS: Equal air entry with bilateral end expiratory wheeze, diminished. CVS: S1 and S2 normal with no audible murmur, regular rhythm. ABDOMEN: No hepatosplenomegaly, normal bowel sounds, no guarding or rigidity. SPINE: No scoliosis or deformity SKIN: No rashes CENTRAL NERVOUS SYSTEM: No focal deficits, tone is normal in all 4 extremities. EXTREMITIES: There is no peripheral edema. No clubbing, no cyanosis. Pe ripheral pulses are intact. - Labs CBC & Chem 7: 09/23/22 05:47 09/23/22 05:47 Labs: Microbiology - Last 24 Hours (Table) 09/18/22 11:55 Blood Culture - Preliminary Blood No Growth after 120 hours 09/18/22 11:55 Blood Culture - Preliminary Blood No Growth after 120 hours Assessment and Plan Assessment: Acute exacerbation of chronic obstructive pulmonary disease with unknown FEV1 value of 40% of predicted. He did test positive for RSV on 09/18/2022. The patient is having recurrent exacerbations. The patient has severe COPD with chronic hypoxic respiratory failure. The patient has a combination of Spiriva and Advair an outpatient basis. The patient states that he is not smoking. No other environmental or acute patient exposures. Chest x-ray is consistent with COPD. Chronic hypoxic respiratory failure secondary to advanced COPD Former smoker History of coronary artery disease with previous stent placements Hypertension Hyperlipidemia Gastroesophageal reflux disease History of depression Plan: The patient was seen and evaluated He has been slow to progress Medications and labs reviewed Continue the current treatment plan Increase his activity as tolerated Possible discharge in the a.m. We'll continue to follow I have personally seen and examined the patient, performed the documentation and the assessment and plan as written. Number of minutes spent on the visit: 10.
[2022-09-24] MEDS: ATORVASTATIN 80 MG TAB PO SCH (21:46)
[2022-09-24] MEDS: ZOLPIDEM 5 MG TAB PO PRN (21:46)
[2022-09-25] MEDS: methylPREDNISolone SOD SUCCI 125 MG/2 ML VIAL IV SCH ×4 (06:07→23:15)
[2022-09-25] MEDS: PANTOPRAZOLE 40 MG TABLET PO SCH ×2 (06:07→16:59)
[2022-09-25] MEDS: IPRATROPIUM 0.5 MG/2.5 ML NEBU INHALATION PRN ×4 (08:09→19:35)
[2022-09-25] MEDS: ANORO ELLIPTA 62.5 MCG/25 MCG INHALATION SCH (08:09)
[2022-09-25] MEDS: ADVAIR INHALATION SCH ×2 (08:09→19:35)
[2022-09-25] MEDS: ALBUTEROL NEBULIZED 2.5 MG/3 ML INHALATION PRN ×4 (08:09→19:35)
[2022-09-25] MEDS: ASPIRIN 81 MG PO SCH (08:20)
[2022-09-25] MEDS: FLUoxetine HCL 20 MG CAP PO SCH ×2 (08:20→08:22)
[2022-09-25] MEDS: LOSARTAN 25 MG TAB PO SCH (08:20)
[2022-09-25] MEDS: CYANOCOBALAMIN 500 MCG TAB PO SCH (08:21)
[2022-09-25] MEDS: FOLIC ACID 1 MG TAB PO SCH (08:21)
[2022-09-25] MEDS: ISOSORBIDE MONONITRATE ER 30 MG TAB.ER.24H PO SCH (08:21)
[2022-09-25] MEDS: CHOLECALCIFEROL 125 MCG (5000 IU) TABLET PO SCH (08:21)
[2022-09-25] MEDS: METOPROLOL TARTRATE 25 MG TAB PO SCH ×2 (08:22→22:32)
[2022-09-25] MEDS: HEPARIN SODIUM,PORCINE/PF 5,000 UNIT/0.5 ML SYRINGE SQ SCH ×2 (08:22→22:33)
[2022-09-25 16:06] LABS: INR 1.1 (<1.2); Prothrombin Time 11.2 sec (9.0-12.0)
[2022-09-25 16:14] LABS: Partial Thromboplastin Time 21.5 sec (22.0-30.0)
--- NOTE | 2022-09-25 16:32 | P.PN ---
Subjective Progress Note Date: 09/25/22 Principal diagnosis: Acute exacerbation of COPD, chronic hypoxic respiratory failure secondary to COPD This is a 62-year-old male patient with known history of COPD with chronic h ypoxic respiratory failure and an FEV1 of 40% of predicted. The patient limited on Spiriva and Symbicort on outpatient basis and the patient sees Dr. Dobbs on outpatient basis regarding his COPD. He was hospitalized approximately a week ago for an acute choked exacerbation patient was discharged home. The patient was completing a prednisone burst taper and while being intubated by the primary care physician, he was noted to be short of breath and was sent back to the hospital. Chest x-ray is consistent with COPD with some atelectatic change in lung bases. No airspace disease or pulmonary infiltrates. No fever. No chills. No pleurisy. No swelling lower extremities. White cell cause of 8.8 with a hemoglobin of 15 and the patient has a platelet count of 15. Normal coagulation profile. Serum bicarb is at 28 with a sodium level of 137 potassium level of 4.7. Lactic acid level is at 2.7, admission, troponins are negative, LFTs are normal, proBNP level is nonelevated. Previous echocardiogram showed a preserved LV function. On today's evaluation of 09/19/2022, the patient is feeling slightly improved compared to yesterday. He still getting short of breath with limited amount of activity. He is on oxygen and currently is on 3 L nasal cannula. Otherwise, no other significant events. He was hospitalized yesterday to emergency because of an acute choked exacerbation. Lactic acid level peaked at 7.3 and dropped down to 2.4. Unresponsive 15.2 hemolyzed 15.3 and a platelet count of 210. BUN is 21 and a creatinine of 0.7. On today's evaluation of 09/20/2022, the patient is still short of breath bronchospastic and wheezy. I would say limited improvement since yesterday. Remains on bronchodilators and steroids. He remains on oxygen and is currently on 2 L. The visiting 117.8, hemoglobin 12.1, platelet count is at 198, normal electrolytes, lactic acid level dropped down to 3.4, BUN is 21 with a creatinine of 0.9. Remains on albuterol updrafts, Pulmicort Respules, Perforomist, IV Solu-Medrol 60 mg every 6 hours. Remains on Zithromax as an empiric antibiotic coverage. 09/21/2022, the patient gradually improving. He seems to be in a good mood today. He is considering undergoing home. He was treated with accommodation bronchodilators and steroids. He was also placed on a combination Perforomist and Pulmicort neb treatments twice a day. I stop the Pulmicort and this was causing some chest irritation. Is also on Zithromax.White cell count 18 with a hemoglobin of 12.7 and a platelet count of 221, sodium is at 140, BUN is at 23 with a creatinine of 1.0. The patient is seen today 09/22/2022 in follow-up on the regular medical floor. He is currently awake and alert in no acute distress. He is unfortunately having some recurrent truncal spasm and wheezing. He is maintaining O2 saturation 90s on 3 L/m per nasal cannula. Not quite back to his baseline. Blood cultures reveal no growth. White count 11.4. Hemoglobin 12.3. Sodium 139. Potassium 4.3. Bicarb 25. BUN 24. Creatinine 0.8. Glucose 169. He remains on bronchodilators, prednisone taper. Heparin for DVT prophylaxis. The patient is seen today 09/23/2022 in follow-up on the regular medical floor. He is awake and alert in no acute distress. Still with some bronchospasm and wheezing. Not quite back to his baseline. He is maintaining O2 saturations in the 90s on 3 L/m per nasal cannula. Blood cultures reveal no growth. White count 10.0. Hemoglobin 12.2. Sodium 137. Potassium 3.9. Bicarb 24. BUN 22. Creatinine 0.8. Glucose 218. He is continued on bronchodilators. IV Solu- Medrol. Heparin for DVT prophylaxis. The patient is seen today 09/24/2022 in follow-up on the regular medical floor. He is currently sitting up in bed. Awake and alert in no acute distress. He has been slow to progress. He did test positive for RSV back on 09/18/2022. He is still congested and wheezing. Maintaining O2 saturations in the 90s on 3 L. He's been afebrile. Hemodynamically stable. Blood cultures revealed no growth. He remains on IV Solu-Medrol, Anoro, albuterol/Atrovent inhalations, Tessalon Perles. Heparin for DVT prophylaxis. Reevaluated today on 09/25/2022, patient remains quite symptomatic, continues to have intermittent cough wheezing shortness of breath, patient is having difficulty clearing his secretions, I suggested bronchoscopy and BAL on this patient with bronchial washing, he is agreeable to proceed, discussed the situation with his over the phone, and the patient will be scheduled for bronchoscopy tomorrow at noontime. Patient does not seem to be showing significant improvement since admission Objective - Vital Signs Vital signs: Vital Signs Temp 98.1 F 09/25/22 15:16 Pulse 92 09/25/22 16:05 Resp 19 09/25/22 15:16 BP 142/76 09/25/22 15:16 Pulse Ox 99 09/25/22 15:16 FiO2 Intake & Output 09/24/22 09/25/22 09/25/22 18:59 06:59 18:59 Other: # Voids 6 2 - Exam Physical Exam: Revealed a 62-year-old white male in no distress, on 3 L nasal cannula Head: Atraumatic normocephalic. HEENT:[Neck is supple.] [No neck masses.] [No thyromegaly.] [No JVD.] Chest: Diffuse rhonchi and wheezing persist bilaterally. Cardiac Exam: [Normal S1 and S2, no S3 gallop, no murmur.] Abdomen: [Soft, nontender, no megaly, no rebound, no guarding, normal bowel sounds.] Extremities: [No clubbing, no edema, no cyanosis.] Neurological Exam: [No focal neurologic deficit.] Alert oriented 3. Psychiatric: Normal mood affect and normal mental status examination. Skin: No rashes. - Labs CBC & Chem 7: 09/23/22 05:47 09/23/22 05:47 Labs: Abnormal Lab Results - Last 24 Hours (Table) 09/25/22 Range/Units 15:30 APTT 21.5 L (22.0-30.0) sec Microbiology - Last 24 Hours (Table) 09/18/22 11:55 Blood Culture - Final Blood No Growth after 144 hours 09/18/22 11:55 Blood Culture - Final Blood No Growth after 144 hours Assessment and Plan Assessment: Impression: Acute exacerbation of COPD and tracheobronchitis. Chronic hypoxic respiratory failure, Severe COPD, FEV1 of 40% History of coronary artery disease and previous stent placement Benign essential hypertension GERD without esophagitis history of depression Recommendation: Continue considering the patient is not improving with maximal medical therapy Discussed with the patient the option of bronchoscopy and bronchial washing and suctioning of secretions Patient is agreeable, is agreeable, will proceed to do so tomorrow. Not quite ready for discharge Time with Patient: Less than 30
--- NOTE | 2022-09-25 21:20 | P.PN ---
Subjective Progress Note Date: 09/25/22 This is a pleasant 62-year-old male who was recently admitted with increased shortness of breath and COPD exacerbation with acute tracheobronchitis and being closely monitored. Patient also found to have RSV infection as well. Covid testing along with influenza has been negative. Patient is continued on IV steroids along with DuoNeb's and breathing treatments with pulmonary following closely. Patient continues to be bronchospastic and dyspneic with increased secretions and no significant improvement and is being scheduled for bronchoscopy with pulmonary following closely. Patient is currently afebrile denies chest pain or palpitations. No reports nausea or vomiting noted and tolerating diet. Patient is agreeable with bronchoscopy which will be scheduled for tomorrow Review of systems: Constitutional: No reports of fatigue, fever, or chills Cardiovascular: No reports of chest pain or palpitations Respiratory: reports of shortness of breath and continued cough with phlegm GI: No reports of nausea, no reports of vomiting, no diarrhea : No reports of dysuria or retention Neurovascular: no reports of generalized weakness All medications have been reviewed Active Medications Acetaminophen (Acetaminophen Tab 325 Mg Tab) 650 mg PO Q4HR PRN PRN Reason: Mild Pain or Fever > 100.5 Hydrocodone Bitart/Acetaminophen (Hydrocodone/Apap 5-325mg 1 Each Tab) 1 each PO Q6HR PRN PRN Reason: Pain Last Admin: 09/22/22 10:53 Dose: 1 each Albuterol Sulfate (Albuterol Nebulized 2.5 Mg/3 Ml) 2.5 mg INHALATION RT-Q2H PRN PRN Reason: Shortness Of Breath Or Wheezing Last Admin: 09/25/22 19:35 Dose: 2.5 mg Aspirin (Aspirin 81 Mg) 81 mg PO DAILY [facility] Last Admin: 09/25/22 08:20 Dose: 81 mg Atorvastatin Calcium (Atorvastatin 80 Mg Tab) 80 mg PO HS [facility] Last Admin: 09/24/22 21:46 Dose: 80 mg Benzonatate (Benzonatate 100 Mg Cap) 100 mg PO TID PRN PRN Reason: Cough Calcium Carbonate/Glycine (Calcium Carbonate 500 Mg Chewable) 1,000 mg PO TID PRN PRN Reason: Heartburn Last Admin: 09/19/22 12:00 Dose: 1,000 mg Cholecalciferol (Cholecalciferol 125 Mcg (5000 Iu) Tablet) 125 mcg PO DAILY [facility] Last Admin: 09/25/22 08:21 Dose: 125 mcg Cyanocobalamin (Cyanocobalamin 500 Mcg Tab) 1,000 mcg PO DAILY [facility] Last Admin: 09/25/22 08:21 Dose: 1,000 mcg Fluoxetine HCl (Fluoxetine Hcl 20 Mg Cap) 20 mg PO DAILY [facility] Last Admin: 09/25/22 08:20 Dose: 20 mg Fluoxetine HCl (Fluoxetine Hcl 20 Mg Cap) 40 mg PO DAILY [facility] Last Admin: 09/25/22 08:22 Dose: 40 mg Folic Acid (Folic Acid 1 Mg Tab) 1 mg PO DAILY [facility] Last Admin: 09/25/22 08:21 Dose: 1 mg Heparin Sodium (Porcine) (Heparin Sodium,Porcine/Pf 5,000 Unit/0.5 Ml Syringe) 5,000 unit SQ Q12HR [facility] Ipratropium [place] (Ipratropium 0.5 Mg/2.5 Ml Nebu) 0.5 mg INHALATION RT-Q2H PRN PRN Reason: Shortness Of Breath Or Wheezing Last Admin: 09/25/22 19:35 Dose: 0.5 mg Isosorbide Mononitrate (Isosorbide Mononitrate Er 30 Mg Tab.Er.24h) 90 mg PO DAILY [facility] Last Admin: 09/25/22 08:21 Dose: 90 mg Losartan Potassium (Losartan 25 Mg Tab) 25 mg PO DAILY [facility] Last Admin: 09/25/22 08:20 Dose: 25 mg Methylprednisolone Sodium Succinate (Methylprednisolone Sod Succi 125 Mg/2 Ml Vial) 60 mg IV Q6HR [facility] Last Admin: 09/25/22 16:59 Dose: 60 mg Metoprolol Tartrate (Metoprolol Tartrate 25 Mg Tab) 25 mg PO BID [facility] Last Admin: 09/25/22 08:22 Dose: 25 mg Morphine Sulfate (Morphine Sulfate 2 Mg/Ml Syringe) 2 mg IVP Q4HR PRN PRN Reason: Pain/Discomfort Last Admin: 09/22/22 08:39 Dose: 2 mg Naloxone HCl (Naloxone 0.4 Mg/Ml 1 Ml Vial) 0.2 mg IVP Q2M PRN PRN Reason: Opioid Reversal Anoro Ellipta 62.5 (Mcg/25 Mcg) 1 each INHALATION RT-DAILY [facility] Last Admin: 09/25/22 08:09 Dose: 1 each Advair 250/50 Mcg 1 each INHALATION RT-BID [facility] Last Admin: 09/25/22 19:35 Dose: 1 each Pantoprazole Sodium (Pantoprazole 40 Mg Tablet) 40 mg PO BID@0730,1730 [facility] Last Admin: 09/25/22 16:59 Dose: 40 mg Ropinirole HCl (Ropinirole Hcl 0.25 Mg Tab) 0.5 mg PO TID [facility] Last Admin: 09/25/22 16:59 Dose: 0.5 mg Zolpidem Tartrate (Zolpidem 5 Mg Tab) 5 mg PO HS PRN PRN Reason: Insomnia Last Admin: 09/24/22 21:46 Dose: 5 mg PHYSICAL EXAMINATION: GENERAL: The patient is alert and oriented x4, Well developed, well nourished. Obese HEENT: Pupils are round and equally reacting to light. EOMI. no scleral icterus. No conjunctival pallor. Normocephalic, atraumatic. No pharyngeal erythema. No thyromegaly. CARDIOVASCULAR: S1 and S2 muffled PULMONARY: diminished breath sounds bilaterally with some inspiratory and expiratory wheezing with scattered coarse rhonchi noted. ABDOMEN: soft. Nontender on exam. obese. non-distended, normoactive bowel sounds. No palpable organomegaly. MUSCULOSKELETAL: No joint swelling or deformity. EXTREMITIES: No cyanosis, clubbing, or pedal edema. NEUROLOGICAL: Gross neurological examination did not reveal any focal deficits. SKIN: No rashes. Assessment: Chronic obstructive pulmonary disease, acute exacerbation with acute tracheobronchitis Acute RSV infection Chronic hypoxic respiratory failure, chronically wears 4 L outpatient Coronary artery disease history History of CVA/TIA Hypertension Hyperlipidemia GI prophylaxis DVT prophylaxis Full code Plan: Recommend to continue with current medications and management with pulmonary following closely. Patient has had prolonged hospitalization with no significant improvement continues to be bronchospastic with wheezing and unable to expectorate secretions although continues with cough and sputum. Pulmonary is following recommending bronchoscopy with BAL and patient is agreeable and will be scheduled tentatively for tomorrow Recommend continue with IV steroids along with DuoNeb's and breathing treatments Will follow-up on repeat labs Will await bronchoscopy report and discuss further with pulmonary about discharge planning as patient continues to request to be able to go home Due to multiple complex medical issues, prognosis is guarded The impression and plan of care has been dictated by Geovanna Vidal, nurse practitioner as directed. Dr. Aubrey MD I have performed a history and examination and MDM of this patient, discussed the same with the dictator, and agree with the dictator's assessment and plan as written ,documented as a scribe. Based on total visit time, I have performed more than 50% of the visit. Any additional findings or plans will be noted. Objective - Vital Signs Vital signs: Vital Signs Temp 97.6 F 09/25/22 07:12 Pulse 86 09/25/22 12:25 Resp 18 09/25/22 07:12 BP 159/89 09/25/22 07:12 Pulse Ox 96 09/25/22 12:24 FiO2 Intake & Output 09/24/22 09/25/22 09/25/22 18:59 06:59 18:59 Other: # Voids 6 2 - Labs CBC & Chem 7: 09/23/22 05:47 09/23/22 05:47 Labs: Microbiology - Last 24 Hours (Table) 09/18/22 11:55 Blood Culture - Final Blood No Growth after 144 hours 09/18/22 11:55 Blood Culture - Final Blood No Growth after 144 hours
[2022-09-25] MEDS: ATORVASTATIN 80 MG TAB PO SCH (22:32)
[2022-09-25] MEDS: ZOLPIDEM 5 MG TAB PO PRN (22:44)
[2022-09-26] MEDS: methylPREDNISolone SOD SUCCI 125 MG/2 ML VIAL IV SCH ×3 (05:56→18:30)
[2022-09-26] MEDS: PANTOPRAZOLE 40 MG TABLET PO SCH ×2 (06:01→16:42)
[2022-09-26] MEDS: ASPIRIN 81 MG PO SCH (08:30)
[2022-09-26] MEDS: HEPARIN SODIUM,PORCINE/PF 5,000 UNIT/0.5 ML SYRINGE SQ SCH ×2 (08:31→21:30)
[2022-09-26] MEDS: IPRATROPIUM 0.5 MG/2.5 ML NEBU INHALATION PRN ×3 (08:51→21:59)
[2022-09-26] MEDS: ANORO ELLIPTA 62.5 MCG/25 MCG INHALATION SCH (08:51)
[2022-09-26] MEDS: ADVAIR INHALATION SCH ×2 (08:51→21:59)
[2022-09-26] MEDS: ALBUTEROL NEBULIZED 2.5 MG/3 ML INHALATION PRN ×3 (08:52→21:59)
[2022-09-26] MEDS: ISOSORBIDE MONONITRATE ER 30 MG TAB.ER.24H PO SCH (08:55)
[2022-09-26] MEDS: LOSARTAN 25 MG TAB PO SCH (08:55)
[2022-09-26] MEDS: METOPROLOL TARTRATE 25 MG TAB PO SCH ×2 (08:55→21:30)
[2022-09-26] MEDS: FLUoxetine HCL 20 MG CAP PO SCH ×2 (08:56)
--- NOTE | 2022-09-26 08:56 | XR ---
EXAMINATION TYPE: XR chest 1V portable DATE OF EXAM: 09/26/2022 CLINICAL HISTORY: Difficulty breathing progress study. COPD and bronchitis. TECHNIQUE: Single AP portable upright view of the chest is obtained. COMPARISON: Chest x-ray from September 18, 2022 and older studies FINDINGS: Left basilar opacity redemonstrated. Right lung is clear. Cardiac silhouette size stable a nd upper limits of normal. Osseous structures are intact. IMPRESSION: Patchy left basilar atelectasis and/or scarring remains present. No new acute infiltrate.
[2022-09-26] MEDS: CYANOCOBALAMIN 500 MCG TAB PO SCH (12:37)
[2022-09-26] MEDS: FOLIC ACID 1 MG TAB PO SCH (12:37)
[2022-09-26] MEDS: CHOLECALCIFEROL 125 MCG (5000 IU) TABLET PO SCH (12:38)
--- NOTE | 2022-09-26 14:05 | P.PN ---
Subjective Progress Note Date: 09/26/22 This is a 62-year-old male patient with known history of COPD with chronic hypoxic respiratory failure and an FEV1 of 40% of predicted. The patient limited on Spiriva and Symbicort on outpatient basis and the patient sees Dr. Dobbs on outpatient basis regarding his COPD. He was hospitalized approximately a week ago for an acute choked exacerbation patient was discharged home. The patient was completing a prednisone burst taper and while being intubated by the primary care physician, he was noted to be short of breath and was sent back to the hospital. Chest x-ray is consistent with COPD with some atelectatic change in lung bases. No airspace disease or pulmonary infiltrates. No fever. No ch ills. No pleurisy. No swelling lower extremities. White cell cause of 8.8 with a hemoglobin of 15 and the patient has a platelet count of 15. Normal coagulation profile. Serum bicarb is at 28 with a sodium level of 137 potassium level of 4.7. Lactic acid level is at 2.7, admission, troponins are negative, LFTs are normal, proBNP level is nonelevated. Previous echocardiogram showed a preserved LV function. On today's evaluation of 09/19/2022, the patient is feeling slightly improved compared to yesterday. He still getting short of breath with limited amount of activity. He is on oxygen and currently is on 3 L nasal cannula. Otherwise, no other significant events. He was hospitalized yesterday to emergency because of an acute choked exacerbation. Lactic acid level peaked at 7.3 and dropped down to 2.4. Unresponsive 15.2 hemolyzed 15.3 and a platelet count of 210. BUN is 21 and a creatinine of 0.7. On today's evaluation of 09/20/2022, the patient is still short of breath bronchospastic and wheezy. I would say limited improvement since yesterday. Remains on bronchodilators and steroids. He remains on oxygen and is currently on 2 L. The visiting 117.8, hemoglobin 12.1, platelet count is at 198, normal electrolytes, lactic acid level dropped down to 3.4, BUN is 21 with a creatinine of 0.9. Remains on albuterol updrafts, Pulmicort Respules, Perforomist, IV Solu-Medrol 60 mg every 6 hours. Remains on Zithromax as an empiric antibiotic coverage. 09/21/2022, the patient gradually improving. He seems to be in a good mood today. He is considering undergoing home. He was treated with accommodation bronchodilators and steroids. He was also placed on a combination Perforomist and Pulmicort neb treatments twice a day. I stop the Pulmicort and this was causing some chest irritation. Is also on Zithromax.White cell count 18 with a hemoglobin of 12.7 and a platelet count of 221, sodium is at 140, BUN is at 23 with a creatinine of 1.0. The patient is seen today 09/22/2022 in follow-up on the regular medical floor. He is currently awake and alert in no acute distress. He is unfortunately having some recurrent truncal spasm and wheezing. He is maintaining O2 saturation 90s on 3 L/m per nasal cannula. Not quite back to his baseline. Blood cultures reveal no growth. White count 11.4. Hemoglobin 12.3. Sodium 139. Potassium 4.3. Bicarb 25. BUN 24. Creatinine 0.8. Glucose 169. He remains on bronchodilators, prednisone taper. Heparin for DVT prophylaxis. The patient is seen today 09/23/2022 in follow-up on the regular medical floor. He is awake and alert in no acute distress. Still with some bronchospasm and wheezing. Not quite back to his baseline. He is maintaining O2 saturations in the 90s on 3 L/m per nasal cannula. Blood cultures reveal no growth. White count 10.0. Hemoglobin 12.2. Sodium 137. Potassium 3.9. Bicarb 24. BUN 22. Creatinine 0.8. Glucose 218. He is continued on bronchodilators. IV Solu- Medrol. Heparin for DVT prophylaxis. The patient is seen today 09/24/2022 in follow-up on the regular medical floor. He is currently sitting up in bed. Awake and alert in no acute distress. He has been slow to progress. He did test positive for RSV back on 09/18/2022. He is still congested and wheezing. Maintaining O2 saturations in the 90s on 3 L. He's been afebrile. Hemodynamically stable. Blood cultures revealed no growth. He remains on IV Solu-Medrol, Anoro, albuterol/Atrovent inhalations, Tessalon Perles. Heparin for DVT prophylaxis. The patient is seen today 09/26/2022 in follow-up on the regular medical floor. He is resting comfortably in bed. Awake and alert in no acute distress. Improved but not quite back to his baseline. Chest x-ray continues to revealed patchy left basilar atelectasis versus scarring. No acute infiltrates. The plan was for bronchoscopy with BAL today however were unable to obtain an OR time. He is maintaining good O2 saturations up to 98% on 2 L/m per nasal cannula. Afebrile. Hemodynamically stable. Blood cultures reveal no growth. No new labs today. He remains on IV Solu-Medrol, bronchodilators, Tessalon Perles. Heparin for DVT prophylaxis. Objective - Vital Signs Vital signs: Vital Signs Temp 98.0 F 09/26/22 07:10 Pulse 78 09/26/22 12:02 Resp 18 09/26/22 07:10 BP 171/94 09/26/22 07:10 Pulse Ox 98 09/26/22 08:55 FiO2 Intake & Output 09/25/22 09/26/22 09/26/22 18:59 06:59 18:59 Intake Total 598 Balance 598 Intake: Oral 598 Other: Voiding Method Urinal # Voids 1 2 1 - Exam GENERAL EXAM: Alert, 62-year-old male, on 2 L nasal cannula, comfortable in no apparent distress. HEAD: Normocephalic. EYES: Normal reaction of pupils, equal size. NOSE: Clear with pink turbinates. THROAT: No erythema or exudates. NECK: No masses, no JVD. CHEST: No chest wall deformity. LUNGS: Equal air entry with bilateral end expiratory wheeze, diminished. CVS: S1 and S2 normal with no audible murmur, regular rhythm. ABDOMEN: No hepatosplenomegaly, normal bowel sounds, no guarding or rigidity. SPINE: No scoliosis or deformity SKIN: No rashes CENTRAL NERVOUS SYSTEM: No focal deficits, tone is normal in all 4 extremities. EXTREMITIES: There is no peripheral edema. No clubbing, no cyanosis. Peripheral pulses are intact. - Labs CBC & Chem 7: 09/23/22 05:47 09/23/22 05:47 Labs: Abnormal Lab Results - Last 24 Hours (Table) 09/25/22 Range/Units 15:30 APTT 21.5 L (22.0-30.0) sec Assessment and Plan Assessment: Acute exacerbation of chronic obstructive pulmonary disease with unknown FEV1 value of 40% of predicted. He did test positive for RSV on 09/18/2022. The patient is having recurrent exacerbations. The patient has severe COPD with chronic hypoxic respiratory failure. The patient has a combination of Spiriva and Advair an outpatient basis. The patient states that he is not smoking. No other environmental or acute patient exposures. Chest x-ray is consistent with COPD. Chronic hypoxic respiratory failure secondary to advanced COPD Former smoker History of coronary artery disease with previous stent placements Hypertension Hyperlipidemia Gastroesophageal reflux disease History of depression Plan: The patient was seen and evaluated Medications and chest x-ray reviewed Unable to perform bronchoscopy today The patient is improving and may be able to be discharged home tomorrow Continue the current treatment plan Increase his activity as tolerated Titrate the FiO2 as tolerated We'll continue to follow I have personally seen and examined the patient, performed the documentation and the assessment and plan as written. Number of minutes spent on the visit: 10.
[2022-09-26] MEDS ORDERED: TEMAZEPAM 15 MG CAP PO PRN (15:06)
--- NOTE | 2022-09-26 15:23 | P.PN ---
Subjective Progress Note Date: 09/26/22 This is a pleasant 62-year-old male who was recently admitted with increased shortness of breath and COPD exacerbation with acute tracheobronchitis and being closely monitored. Patient also found to have RSV infection as well. Covid testing along with influenza has been negative. Patient is continued on IV steroids along with DuoNeb's and breathing treatments with pulmonary following closely. Patient continues to be bronchospastic and dyspneic with increased secretions and no significant improvement and is being scheduled for bronchoscopy with pulmonary following closely. Patient is currently afebrile denies chest pain or palpitations. No reports nausea or vomiting noted and tolerating diet. Patient is agreeable with bronchoscopy which will be scheduled for tomorrow 09/26/2022 Patient is seen and evaluated in follow-up today with pulmonary following closely for COPD exacerbation with acute tracheobronchitis. Patient is maintained on IV steroids along with breathing treatments not showing no clinical improvement recommending bronchoscopy and patient is agreeable. Unable to do the bronchoscopy today due to scheduling per pulmonary and will plan for possibly tomorrow. Pulmonary recommend monitoring overnight and will reevaluate for the bronch tomorrow. Patient denies worsening shortness of breath and continues to ask when he can go home although is dyspneic with exertion and wheezing. Patient also having difficulty with sleeping and will add Restoril discontinue Ambien. Patient is afebrile with no reports of nausea or vomiting and tolerating diet. Review of systems: Constitutional: No reports of fatigue, fever, or chills Cardiovascular: No reports of chest pain or palpitations Respiratory: reports of shortness of breath and continued cough with phlegm GI: No reports of nausea, no reports of vomiting, no diarrhea : No reports of dysuria or retention Neurovascular: no reports of generalized weakness All medications have been reviewed Active Medications Acetaminophen (Acetaminophen Tab 325 Mg Tab) 650 mg PO Q4HR PRN PRN Reason: Mild Pain or Fever > 100.5 Hydrocodone Bitart/Acetaminophen (Hydrocodone/Apap 5-325mg 1 Each Tab) 1 each PO Q6HR PRN PRN Reason: Pain Last Admin: 09/22/22 10:53 Dose: 1 each Albuterol Sulfate (Albuterol Nebulized 2.5 Mg/3 Ml) 2.5 mg INHALATION RT-Q2H PRN PRN Reason: Shortness Of Breath Or Wheezing Last Admin: 09/26/22 11:48 Dose: 2.5 mg Aspirin (Aspirin 81 Mg) 81 mg PO DAILY [facility] [place] Last Admin: 09/26/22 08:30 Dose: Not Given Atorvastatin Calcium (Atorvastatin 80 Mg Tab) 80 mg PO HS [facility] [place] Last Admin: 09/25/22 22:32 Dose: 80 mg Benzonatate (Benzonatate 100 Mg Cap) 100 mg PO TID PRN PRN Reason: Cough Calcium Carbonate/Glycine (Calcium Carbonate 500 Mg Chewable) 1,000 mg PO TID PRN PRN Reason: Heartburn Last Admin: 09/19/22 12:00 Dose: 1,000 mg Cholecalciferol (Cholecalciferol 125 Mcg (5000 Iu) Tablet) 125 mcg PO DAILY [facility] [place] Last Admin: 09/26/22 12:38 Dose: 125 mcg Cyanocobalamin (Cyanocobalamin 500 Mcg Tab) 1,000 mcg PO DAILY [facility] [place] Last Admin: 09/26/22 12:37 Dose: 1,000 mcg Fluoxetine HCl (Fluoxetine Hcl 20 Mg Cap) 20 mg PO DAILY [facility] [place] Last Admin: 09/26/22 08:56 Dose: 20 mg Fluoxetine HCl (Fluoxetine Hcl 20 Mg Cap) 40 mg PO DAILY [facility] [place] Last Admin: 09/26/22 08:56 Dose: 40 mg Folic Acid (Folic Acid 1 Mg Tab) 1 mg PO DAILY [facility] [place] Last Admin: 09/26/22 12:37 Dose: 1 mg Heparin Sodium (Porcine) (Heparin Sodium,Porcine/Pf 5,000 Unit/0.5 Ml Syringe) 5,000 unit SQ Q12HR [facility] [place] Last Admin: 09/26/22 08:31 Dose: Not Given Ipratropium [place] (Ipratropium 0.5 Mg/2.5 Ml Nebu) 0.5 mg INHALATION RT-Q2H PRN PRN Reason: Shortness Of Breath Or Wheezing Last Admin: 09/26/22 11:48 Dose: 0.5 mg Isosorbide Mononitrate (Isosorbide Mononitrate Er 30 Mg Tab.Er.24h) 90 mg PO DAILY [facility] [place] Last Admin: 09/26/22 08:55 Dose: 90 mg Losartan Potassium (Losartan 25 Mg Tab) 25 mg PO DAILY [facility] [place] Last Admin: 09/26/22 08:55 Dose: 25 mg Methylprednisolone Sodium Succinate (Methylprednisolone Sod Succi 125 Mg/2 Ml Vial) 60 mg IV Q6HR [facility] [place] Last Admin: 09/26/22 12:36 Dose: 60 mg Metoprolol Tartrate (Metoprolol Tartrate 25 Mg Tab) 25 mg PO BID [facility] [place] Last Admin: 09/26/22 08:55 Dose: 25 mg Morphine Sulfate (Morphine Sulfate 2 Mg/Ml Syringe) 2 mg IVP Q4HR PRN PRN Reason: Pain/Discomfort Last Admin: 09/22/22 08:39 Dose: 2 mg Naloxone HCl (Naloxone 0.4 Mg/Ml 1 Ml Vial) 0.2 mg IVP Q2M PRN PRN Reason: Opioid Reversal Anoro Ellipta 62.5 (Mcg/25 Mcg) 1 each INHALATION RT-DAILY [facility] [place] Last Admin: 09/26/22 08:51 Dose: 1 each Advair 250/50 Mcg 1 each INHALATION RT-BID [facility] [place] Last Admin: 09/26/22 08:51 Dose: 1 each Pantoprazole Sodium (Pantoprazole 40 Mg Tablet) 40 mg PO BID@0730,1730 [facility] [place] Last Admin: 09/26/22 06:01 Dose: Not Given Ropinirole HCl (Ropinirole Hcl 0.25 Mg Tab) 0.5 mg PO TID [facility] [place] Last Admin: 09/26/22 12:38 Dose: Not Given Temazepam (Temazepam 15 Mg Cap) 15 mg PO HS PRN PRN Reason: Insomnia PHYSICAL EXAMINATION: GENERAL: The patient is alert and oriented x4, Well developed, well nourished. Obese HEENT: Pupils are round and equally reacting to light. EOMI. no scleral icterus. No conjunctival pallor. Normocephalic, atraumatic. No pharyngeal erythema. No thyromegaly. CARDIOVASCULAR: S1 and S2 muffled PULMONARY: diminished breath sounds bilaterally with some inspiratory and expiratory wheezing with scattered coarse rhonchi noted. ABDOMEN: soft. Nontender on exam. obese. non-distended, normoactive bowel sounds. No palpable organomegaly. MUSCULOSKELETAL: No joint swelling or deformity. EXTREMITIES: No cyanosis, clubbing, or pedal edema. NEUROLOGICAL: Gross neurological examination did not reveal any focal deficits. SKIN: No rashes. Assessment: Chronic obstructive pulmonary disease, acute exacerbation with acute tracheobronchitis Acute RSV infection Chronic hypoxic respiratory failure, chronically wears 4 L outpatient Coronary artery disease history History of CVA/TIA Hypertension Hyperlipidemia GI prophylaxis DVT prophylaxis Full code Plan: Recommend to continue with current medications and management with pulmonary following closely. Patient has had prolonged hospitalization with no significant improvement continues to be bronchospastic with wheezing and unable to expectorate secretions although continues with cough and sputum. Pulmonary is following recommending bronchoscopy with BAL and patient is agreeable and will be rescheduled tentatively for tomorrow as they were unable to obtain on the bronchoscopy suite today Recommend continue with IV steroids along with DuoNeb's and breathing treatments Will follow-up on repeat labs Will await bronchoscopy report and discuss further with pulmonary about discharge planning as patient continues to request to be able to go home Due to multiple complex medical issues, prognosis is guarded The impression and plan of care has been dictated by Geovanna Vidal, nurse practitioner as directed. Dr. Aubrey MD I have performed a history and examination and MDM of this patient, discussed the same with the dictator, and agree with the dictator's assessment and plan as written ,documented as a scribe. Based on total visit time, I have performed more than 50% of the visit. Any additional findings or plans will be noted. Objective - Vital Signs Vital signs: Vital Signs Temp 98.0 F 09/26/22 07:10 Pulse 78 09/26/22 12:02 Resp 18 09/26/22 07:10 BP 171/94 09/26/22 07:10 Pulse Ox 98 09/26/22 08:55 FiO2 Intake & Output 09/25/22 09/26/22 09/26/22 18:59 06:59 18:59 Intake Total 598 Balance 598 Intake: Oral 598 Other: Voiding Method Urinal # Voids 1 2 1 - Labs CBC & Chem 7: 09/23/22 05:47 09/23/22 05:47 Labs: Abnormal Lab Results - Last 24 Hours (Table) 09/25/22 Range/Units 15:30 APTT 21.5 L (22.0-30.0) sec
[2022-09-26] MEDS: ATORVASTATIN 80 MG TAB PO SCH (21:30)
[2022-09-27] MEDS: methylPREDNISolone SOD SUCCI 125 MG/2 ML VIAL IV SCH ×2 (00:20→06:20)
[2022-09-27 02:11] VITALS: RESP 18
[2022-09-27] MEDS: PANTOPRAZOLE 40 MG TABLET PO SCH (06:19)
[2022-09-27 07:49] VITALS: BP 147/83; TEMP 98.2
[2022-09-27] MEDS: ANORO ELLIPTA 62.5 MCG/25 MCG INHALATION SCH (08:52)
[2022-09-27] MEDS: ISOSORBIDE MONONITRATE ER 30 MG TAB.ER.24H PO SCH (08:52)
[2022-09-27] MEDS: FOLIC ACID 1 MG TAB PO SCH (08:52)
[2022-09-27] MEDS: METOPROLOL TARTRATE 25 MG TAB PO SCH (08:52)
[2022-09-27] MEDS: LOSARTAN 25 MG TAB PO SCH (08:52)
[2022-09-27] MEDS: ASPIRIN 81 MG PO SCH (08:52)
[2022-09-27] MEDS: CYANOCOBALAMIN 500 MCG TAB PO SCH (08:52)
[2022-09-27] MEDS: IPRATROPIUM 0.5 MG/2.5 ML NEBU INHALATION PRN (08:52)
[2022-09-27] MEDS: ALBUTEROL NEBULIZED 2.5 MG/3 ML INHALATION PRN (08:52)
[2022-09-27] MEDS: ADVAIR INHALATION SCH (08:52)
[2022-09-27] MEDS: FLUoxetine HCL 20 MG CAP PO SCH ×2 (08:53)
[2022-09-27] MEDS: HEPARIN SODIUM,PORCINE/PF 5,000 UNIT/0.5 ML SYRINGE SQ SCH (08:53)
[2022-09-27] MEDS: CHOLECALCIFEROL 125 MCG (5000 IU) TABLET PO SCH (08:53)
[2022-09-27 09:00] VITALS: PULSE 86
--- NOTE | 2022-09-27 13:31 | P.PN ---
Subjective Progress Note Date: 09/27/22 This is a 62-year-old male patient with known history of COPD with chronic hypoxic respiratory failure and an FEV1 of 40% of predicted. The patient limited on Spiriva and Symbicort on outpatient basis and the patient sees Dr. Dobbs on outpatient basis regarding his COPD. He was hospitalized approximately a week ago for an acute choked exacerbation patient was discharged home. The patient was completing a prednisone burst taper and while being intubated by the primary care physician, he was noted to be short of breath and was sent back to the hospital. Chest x-ray is consistent with COPD with some atelectatic change in lung bases. No airspace disease or pulmonary infiltrates. No fever. No ch ills. No pleurisy. No swelling lower extremities. White cell cause of 8.8 with a hemoglobin of 15 and the patient has a platelet count of 15. Normal coagulation profile. Serum bicarb is at 28 with a sodium level of 137 potassium level of 4.7. Lactic acid level is at 2.7, admission, troponins are negative, LFTs are normal, proBNP level is nonelevated. Previous echocardiogram showed a preserved LV function. On today's evaluation of 09/19/2022, the patient is feeling slightly improved compared to yesterday. He still getting short of breath with limited amount of activity. He is on oxygen and currently is on 3 L nasal cannula. Otherwise, no other significant events. He was hospitalized yesterday to emergency because of an acute choked exacerbation. Lactic acid level peaked at 7.3 and dropped down to 2.4. Unresponsive 15.2 hemolyzed 15.3 and a platelet count of 210. BUN is 21 and a creatinine of 0.7. On today's evaluation of 09/20/2022, the patient is still short of breath bronchospastic and wheezy. I would say limited improvement since yesterday. Remains on bronchodilators and steroids. He remains on oxygen and is currently on 2 L. The visiting 117.8, hemoglobin 12.1, platelet count is at 198, normal electrolytes, lactic acid level dropped down to 3.4, BUN is 21 with a creatinine of 0.9. Remains on albuterol updrafts, Pulmicort Respules, Perforomist, IV Solu-Medrol 60 mg every 6 hours. Remains on Zithromax as an empiric antibiotic coverage. 09/21/2022, the patient gradually improving. He seems to be in a good mood today. He is considering undergoing home. He was treated with accommodation bronchodilators and steroids. He was also placed on a combination Perforomist and Pulmicort neb treatments twice a day. I stop the Pulmicort and this was causing some chest irritation. Is also on Zithromax.White cell count 18 with a hemoglobin of 12.7 and a platelet count of 221, sodium is at 140, BUN is at 23 with a creatinine of 1.0. The patient is seen today 09/22/2022 in follow-up on the regular medical floor. He is currently awake and alert in no acute distress. He is unfortunately having some recurrent truncal spasm and wheezing. He is maintaining O2 saturation 90s on 3 L/m per nasal cannula. Not quite back to his baseline. Blood cultures reveal no growth. White count 11.4. Hemoglobin 12.3. Sodium 139. Potassium 4.3. Bicarb 25. BUN 24. Creatinine 0.8. Glucose 169. He remains on bronchodilators, prednisone taper. Heparin for DVT prophylaxis. The patient is seen today 09/23/2022 in follow-up on the regular medical floor. He is awake and alert in no acute distress. Still with some bronchospasm and wheezing. Not quite back to his baseline. He is maintaining O2 saturations in the 90s on 3 L/m per nasal cannula. Blood cultures reveal no growth. White count 10.0. Hemoglobin 12.2. Sodium 137. Potassium 3.9. Bicarb 24. BUN 22. Creatinine 0.8. Glucose 218. He is continued on bronchodilators. IV Solu- Medrol. Heparin for DVT prophylaxis. The patient is seen today 09/24/2022 in follow-up on the regular medical floor. He is currently sitting up in bed. Awake and alert in no acute distress. He has been slow to progress. He did test positive for RSV back on 09/18/2022. He is still congested and wheezing. Maintaining O2 saturations in the 90s on 3 L. He's been afebrile. Hemodynamically stable. Blood cultures revealed no growth. He remains on IV Solu-Medrol, Anoro, albuterol/Atrovent inhalations, Tessalon Perles. Heparin for DVT prophylaxis. The patient is seen today 09/26/2022 in follow-up on the regular medical floor. He is resting comfortably in bed. Awake and alert in no acute distress. Improved but not quite back to his baseline. Chest x-ray continues to revealed patchy left basilar atelectasis versus scarring. No acute infiltrates. The plan was for bronchoscopy with BAL today however were unable to obtain an OR time. He is maintaining good O2 saturations up to 98% on 2 L/m per nasal cannula. Afebrile. Hemodynamically stable. Blood cultures reveal no growth. No new labs today. He remains on IV Solu-Medrol, bronchodilators, Tessalon Perles. Heparin for DVT prophylaxis. The patient is seen today 09/27/2022 in follow-up on the regular medical floor. He is continuing to improve daily. Nearly back to his baseline. Maintaining good O2 saturations in the 90s on 3 L/m per nasal cannula. Blood cultures revealed no growth. He has continued on steroids, bronchodilators heparin for DVT prophylaxis. Hoping to go home. Objective - Vital Signs Vital signs: Vital Signs Temp 98.2 F 09/27/22 06:59 Pulse 86 09/27/22 09:11 Resp 18 09/27/22 10:08 BP 147/83 09/27/22 06:59 Pulse Ox 93 L 09/27/22 08:53 FiO2 Intake & Output 09/26/22 09/27/22 09/27/22 18:59 06:59 18:59 Intake Total 150 Balance 150 Intake: Oral 150 Other: Voiding Method Urinal Urinal # Voids 3 3 # Bowel Movements 1 - Exam GENERAL EXAM: Alert, 62-year-old male, up ambulating in his room, on 3 L nasal cannula, comfortable in no apparent distress. HEAD: Normocephalic. EYES: Normal reaction of pupils, equal size. NOSE: Clear with pink turbinates. THROAT: No erythema or exudates. NECK: No masses, no JVD. CHEST: No chest wall deformity. LUNGS: Equal air entry with bilateral end expiratory wheeze, diminished. CVS: S1 and S2 normal with no audible murmur, regular rhythm. ABDOMEN: No hepatosplenomegaly, normal bowel sounds, no guarding or rigidity. SPINE: No scoliosis or deformity SKIN: No rashes CENTRAL NERVOUS SYSTEM: No focal deficits, tone is normal in all 4 extremities. EXTREMITIES: There is no peripheral edema. No clubbing, no cyanosis. Peripheral pulses are intact. - Labs CBC & Chem 7: 09/23/22 05:47 09/23/22 05:47 Assessment and Plan Assessment: Acute exacerbation of chronic obstructive pulmonary disease with unknown FEV1 value of 40% of predicted. He did test positive for RSV on 09/18/2022. The patient is having recurrent exacerbations. The patient has severe COPD with chronic hypoxic respiratory failure. The patient has a combination of Spiriva and Advair an outpatient basis. The patient states that he is not smoking. No other environmental or acute patient exposures. Chest x-ray is consistent with COPD. Chronic hypoxic respiratory failure secondary to advanced COPD Former smoker History of coronary artery disease with previous stent placements Hypertension Hyperlipidemia Gastroesophageal reflux disease History of depression Plan: The patient was seen and evaluated Medications reviewed Cleared for discharge from the pulmonary standpoint Complete a prednisone taper, continue bronchodilators Continue with home oxygen Follow-up closely in our office in 1 week I have personally seen and examined the patient, performed the documentation and the assessment and plan as written. Number of minutes spent on the visit: 10.
--- NOTE | 2022-09-27 20:33 | P.DS ---
Providers Date of admission: 09/22/22 14:06 Expected date of discharge: 09/27/22 Attending physician: Susan Saul Consults: 09/18/22 14:16 Consult Physician Urgent Consulting Provider: Jarred Mejia Consult Reason/Comments: COPD Do you want consulting provider notified?: Yes 09/18/22 14:17 Consult to Palliative Care Routine Consulting Provider: Peggy Johnson Consult Reason/Comments: Possible Palliative Care outpatient also Do you want consulting provider notified?: Yes Primary care physician: Yara Wong Hospital Course: Final diagnosis Chronic obstructive pulmonary disease, acute exacerbation with acute tracheobronchitis Acute RSV infection Chronic hypoxic respiratory failure, chronically wears 4 L outpatient Coronary artery disease history History of CVA/TIA Hypertension Hyperlipidemia GI prophylaxis DVT prophylaxis Full code Discharge disposition Patient is being discharged in a stable condition with guarded prognosis to home. Patient will follow-up with Dr. Wong in the outpatient setting upon discharge. Patient is to continue with prednisone taper and close outpatient follow-up with pulmonary as scheduled. Discussed possible outpatient bronchoscopy. Total time taken is greater than 35 minutes. Hospital course This is a 62-year-old male who was recently admitted with COPD exacerbation and being closely monitored. Patient also found to have RSV infection area patient chronically wears O2 in the outpatient setting and is maintained on 4 L. Patient with no real significant improvement with pulmonary following lee ann mmending bronchoscopy and patient reports to feeling better now and would like to follow-up outpatient for bronchoscopy. Patient has been cleared by pulmonary and will follow-up this week. Please refer to pulmonary no for further HPI. Currently no reports of chest pain, shortness of breath, or palpitations. Patient is afebrile. No reports of nausea or vomiting and patient is tolerating diet. Patient will be discharged home today. Guarded prognosis and high risk for readmissions. Physical exam: Gen: This is a 62-year-old male who is awake, alert and oriented 3, well- developed, well-nourished, obese. HEENT: Head is atraumatic, normocephalic. Pupils equal, round. Sclerae is anicteric. NECK: Supple. No JVD. No lymphadenopathy. No thyromegaly. LUNGS: Diminished breath sounds bilaterally with some scattered rhonchi and expiratory wheezing noted. No intercostal retractions. HEART: S1, S2 are muffled ABDOMEN: Soft. Obese. Bowel sounds are present. No masses. No tenderness. EXTREMITIES: No pedal edema. No calf tenderness. NEUROLOGICAL: Patient is awake, alert and oriented x3. Cranial nerves 2 through 12 are grossly intact. Please refer to medication reconciliation sheet for a list of medications. The impression and plan of care has been dictated by Geovanna Vidal, Nurse Practitioner as directed. Dr. Aubrey MD I have performed a history and examination and MDM of this patient, discussed the same with the dictator, and agree with the dictator's assessment and plan as written ,documented as a scribe. Based on total visit time, I have performed more than 50% of the visit. Patient Condition at Discharge: Fair Plan - Discharge Summary New Discharge Prescriptions: New Ipratropium Nebulized [Atrovent Nebulized 0.2 MG/ML] 0.5 mg INHALATION RT-Q2H PRN ml PRN Reason: Shortness Of Breath Or Wheezing predniSONE 10 mg PO DIRECTED #30 tab Benzonatate [Tessalon Perles] 100 mg PO TID PRN #20 cap PRN Reason: Cough Calcium Carbonate [Tums] 1,000 mg PO TID PRN tab PRN Reason: Heartburn Continue Isosorbide Mononitrate ER [Imdur] 90 mg PO DAILY FLUoxetine HCL [PROzac] 40 mg PO DAILY Nitroglycerin Sl Tabs [Nitrostat] 0.4 mg SUBLINGUAL Q5M PRN PRN Reason: Chest Pain rOPINIRole HCL [Requip] 0.5 mg PO TID Acetaminophen Tab [Tylenol] 650 mg PO Q4HR PRN tab PRN Reason: Mild Pain Or Fever > 100.5 Meclizine [Antivert] 12.5 mg PO TID #30 tab Folic Acid 1 mg PO DAILY #30 tab Albuterol Inhaler [Ventolin Hfa Inhaler] 2 puff INHALATION RT-QID PRN PRN Reason: Shortness Of Breath Metoprolol Tartrate [Lopressor] 25 mg PO BID Pantoprazole Sodium 40 mg PO BID Lansoprazole [Prevacid] 30 mg PO DAILY Atorvastatin Calcium [Lipitor] 80 mg PO HS FLUoxetine HCL [PROzac] 20 mg PO DAILY Cholecalciferol [Vitamin D3 (125 Mcg = 5000 Iu)] 125 mcg PO DAILY 30 Days #30 tab Aspirin 81 mg PO DAILY #30 tab Ascorbic Acid [Vitamin C] 1,000 mg PO DAILY Cyanocobalamin (Vitamin B-12) [Vitamin B-12] 1,000 mcg PO DAILY Fluticasone Propion/Salmeterol [Advair 250-50 Diskus] 1 puff INHALATION RT- BID Losartan [Cozaar] 25 mg PO DAILY Ipratropium Nebulized [Atrovent Nebulized 0.2 MG/ML] 0.5 mg INHALATION RT-QID #60 each Tiotropium Encinal [Spiriva Handihaler] 1 puff INHALATION RT-DAILY Discontinued predniSONE See Taper PO DIRECTED Discharge Medication List Atorvastatin Calcium [Lipitor] 80 mg PO HS 04/26/22 [History] FLUoxetine HCL [PROzac] 20 mg PO DAILY 04/26/22 [History] FLUoxetine HCL [PROzac] 40 mg PO DAILY 04/26/22 [History] Isosorbide Mononitrate ER [Imdur] 90 mg PO DAILY 04/26/22 [History] Lansoprazole [Prevacid] 30 mg PO DAILY 04/26/22 [History] Metoprolol Tartrate [Lopressor] 25 mg PO BID 04/26/22 [History] Nitroglycerin Sl Tabs [Nitrostat] 0.4 mg SUBLINGUAL Q5M PRN 04/26/22 [History] Pantoprazole Sodium 40 mg PO BID 04/26/22 [History] rOPINIRole HCL [Requip] 0.5 mg PO TID 04/26/22 [History] Acetaminophen Tab [Tylenol] 650 mg PO Q4HR PRN tab 04/30/22 [Rx] Cholecalciferol [Vitamin D3 (125 Mcg = 5000 Iu)] 125 mcg PO DAILY 30 Days #30 tab 04/30/22 [Rx] Aspirin 81 mg PO DAILY #30 tab 05/14/22 [Rx] Folic Acid 1 mg PO DAILY #30 tab 05/14/22 [Rx] Meclizine [Antivert] 12.5 mg PO TID #30 tab 05/14/22 [Rx] Ascorbic Acid [Vitamin C] 1,000 mg PO DAILY 07/21/22 [History] Cyanocobalamin (Vitamin B-12) [Vitamin B-12] 1,000 mcg PO DAILY 07/21/22 [History] Albuterol Inhaler [Ventolin Hfa Inhaler] 2 puff INHALATION RT-QID PRN 09/07/22 [History] Fluticasone Propion/Salmeterol [Advair 250-50 Diskus] 1 puff INHALATION RT-BID 09/07/22 [History] Losartan [Cozaar] 25 mg PO DAILY 09/07/22 [History] Ipratropium Nebulized [Atrovent Nebulized 0.2 MG/ML] 0.5 mg INHALATION RT-QID #60 each 09/09/22 [Rx] Tiotropium Encinal [Spiriva Handihaler] 1 puff INHALATION RT-DAILY 09/18/22 [History] Benzonatate [Tessalon Perles] 100 mg PO TID PRN #20 cap 09/27/22 [Rx] Calcium Carbonate [Tums] 1,000 mg PO TID PRN tab 09/27/22 [Rx] Ipratropium Nebulized [Atrovent Nebulized 0.2 MG/ML] 0.5 mg INHALATION RT-Q2H PRN ml 09/27/22 [Rx] predniSONE 10 mg PO DIRECTED #30 tab 09/27/22 [Rx] Follow up Appointment(s)/Referral(s): Reece Dobbs DO [Doctor of Osteopathic Medicine] - 10/09/22 11:30 am Care[facility] [NON-STAFF] - As Needed ([facility] will call you to schedule your in home visits. ) Yara Wong MD [Primary Care Provider] - 1-2 days (Office clossed at time of discharge. Please call for appointment.) Patient Instructions/Handouts: COPD (Chronic Obstructive Pulmonary Disease) (DC), Dyspnea (DC) Activity/Diet/Wound Care/Special Instructions: Activity is limited until follow-up Follow-up with primary care provider on discharge Follow-up with pulmonary outpatient Continue taking medications as prescribed Continue with inhalers as well as breathing treatments Discharge Disposition: HOME WITH HOME HEALTH SERVICES
== END 2022-09-27 11:37 | disposition home health service (06) | DRG 140 ==
LOC: EC 10:59 → 4SSUR 14:16 → OBSVTOIN 09-22 14:06
PROVIDERS: ADMIT Internal Medicine; ATTEND Internal Medicine
DX: J44.1 Chronic obstructive pulmonary disease with (acute) exacerbation (principal); J96.11 Chronic respiratory failure with hypoxia; E87.21 Acute metabolic acidosis; B97.4 Respiratory syncytial virus as the cause of diseases classified elsewhere; Z99.81 Dependence on supplemental oxygen; I10 Essential (primary) hypertension; F32.A Depression, unspecified; Z95.5 Presence of coronary angioplasty implant and graft; I25.10 Atherosclerotic heart disease of native coronary artery without angina pectoris; H54.62 Unqualified visual loss, left eye, normal vision right eye; E78.5 Hyperlipidemia, unspecified; J20.8 Acute bronchitis due to other specified organisms; F41.9 Anxiety disorder, unspecified; K21.9 Gastro-esophageal reflux disease without esophagitis; Z20.822 Contact with and (suspected) exposure to COVID-19; Z87.891 Personal history of nicotine dependence; I25.2 Old myocardial infarction; Z86.73 Personal history of transient ischemic attack (TIA), and cerebral infarction without residual deficits; Z86.16 Personal history of COVID-19; Z88.5 Allergy status to narcotic agent; Z79.82 Long term (current) use of aspirin; Z79.899 Other long term (current) drug therapy
CPT/HCPCS: 36415; 71045; 71046; 80048; 80053; 83605; 83735; 83880; 84145; 84484; 85025; 85610; 85730; 87040; 87636; 93005; 94640; 94760; 96374; 96375; 96376; 99285

== ENCOUNTER 2022-12-03 14:01 | Observation (INO) | payer MEDICARE, OTHER ==
[2022-12-03] MEDS ORDERED: ASPIRIN 81 MG PO STA (14:57)
[2022-12-03] MEDS ORDERED: NITROGLYCERIN OINT 1 INCH/GM PACKET TOPICAL STA (14:57)
--- NOTE | 2022-12-03 15:11 | ED ---
General Adult HPI - General Chief complaint: Chest Pain Stated complaint: Chest Pain Time Seen by Provider: 12/03/22 14:05 Source: patient, EMS, RN notes reviewed, old records reviewed Mode of arrival: EMS Limitations: no limitations - History of Present Illness Initial comments: This is a 62-year-old male who presents emergency Department complaining of chest pain on the left side of his chest he states radiates to his arm and it makes a little short of breath and he said some diaphoretic episodes. Patient states this started in the middle the night and has continued intermittently throughout the day. Patient states he does have a heart history he does have a smoking history even though he has quit a few years ago. Patient also has a strong family history. Patient states currently the chest pain still there. Patient denies any recent fever chills or cough. Patient denies any increased pain with movement. Patient denies any abdominal pain patient denies nausea vomiting. Patient denies any lightheadedness dizziness or near syncopal episode. - Related Data Home Medications Medication Instructions Recorded Confirmed Atorvastatin Calcium [Lipitor] 80 mg PO HS 04/26/22 12/03/22 FLUoxetine HCL [PROzac] 20 mg PO DAILY 04/26/22 12/03/22 FLUoxetine HCL [PROzac] 40 mg PO DAILY 04/26/22 12/03/22 Isosorbide Mononitrate ER [Imdur] 90 mg PO DAILY 04/26/22 12/03/22 Metoprolol Tartrate [Lopressor] 25 mg PO BID-W/MEALS 04/26/22 12/03/22 Nitroglycerin Sl Tabs [Nitrostat] 0.4 mg SUBLINGUAL Q5M PRN 04/26/22 12/03/22 Pantoprazole Sodium 40 mg PO BID 04/26/22 12/03/22 rOPINIRole HCL [Requip] 0.5 mg PO TID 04/26/22 12/03/22 Benzonatate [Tessalon Perles] 100 mg PO BID PRN 12/03/22 12/03/22 Famotidine [Pepcid] 20 mg PO HS PRN 12/03/22 12/03/22 Ipratropium-Albuterol Nebulize 3 ml INHALATION RT-Q6H PRN 12/03/22 12/03/22 [Duoneb 0.5 mg-3 mg/3 ml Soln] Losartan [Cozaar] 50 mg PO DAILY 12/03/22 12/03/22 Previous Rx's Medication Instructions Recorded Cholecalciferol [Vitamin D3 (125 125 mcg PO DAILY 30 Days #30 tab 04/30/22 Mcg = 5000 Iu)] Aspirin 81 mg PO DAILY #30 tab 05/14/22 Budesonide-Formot 160-4.5 Mcg 2 puff INHALATION BID #10.2 gm 12/04/22 [Symbicort 160-4.5 Mcg Inhaler] Allergies Allergy/AdvReac Type Severity Reaction Status Date / Time codeine Allergy Swelling Verified 12/03/22 17:07 Review of Systems ROS Statement: Those systems with pertinent positive or pertinent negative responses have been documented in the HPI. ROS Other: All systems not noted in ROS Statement are negative. Past Medical History Past Medical History: Chest Pain / Angina, COPD, CVA/TIA, GERD/Reflux, Hyperlipidemia, Hypertension, Myocardial Infarction (NH) Additional Past Medical History / Comment(s): COVID April 2022, multiple MIs, TIA, peripheral vision loss of left eye Last Myocardial Infarction Date:: 2020 History of Any Multi-Drug Resistant Organisms: None Reported Past Surgical History: Heart Catheterization With Stent Additional Past Surgical History / Comment(s): 2 cardiac stents Past Anesthesia/Blood Transfusion Reactions: No Reported Reaction Date of Last Stent Placement:: 2020 Past Psychological History: No Psychological Hx Reported Smoking Status: Former smoker Past Alcohol Use History: None Reported Past Drug Use History: None Reported - Past Family History Father Family Medical History: Myocardial Infarction (NH) Brother(s) Family Medical History: Myocardial Infarction (NH) General Exam - General Exam Comments Initial Comments: GENERAL: Patient is well-developed and well-nourished. Patient is nontoxic and well- hydrated and is in mild distress. ENT: Neck is soft and supple. No significant lymphadenopathy is noted. Oropharynx is clear. Moist mucous membranes. Neck has full range of motion without eliciting any pain. EYES: The sclera were anicteric and conjunctiva were pink and moist. Extraocular movements were intact and pupils were equal round and reactive to light. Eyelids were unremarkable. PULMONARY: Unlabored respirations. Good breath sounds bilaterally. No audible rales rhonchi or wheezing was noted. CARDIOVASCULAR: There is a regular rate and rhythm without any murmurs gallops or rubs. ABDOMEN: Soft and nontender with normal bowel sounds. SKIN: Skin is clear with no lesions or rashes and otherwise unremarkable. NEUROLOGIC: Patient is alert and oriented x3. Cranial nerves II through XII are grossly intact. Motor and sensory are also intact. Normal speech, volume and content. Symmetrical smile. MUSCULOSKELETAL: Normal extremities with adequate strength and full range of motion. LYMPHATICS: No significant lymphadenopathy is noted PSYCHIATRIC: Normal psychiatric evaluation. Limitations: no limitations Course Vital Signs 12/03/22 12/03/22 12/03/22 14:02 15:33 16:38 Temperature 98.1 F Pulse Rate 68 68 Respiratory 20 18 18 Rate Blood Pressure 153/86 143/82 O2 Sat by Pulse 97 95 Oximetry 12/03/22 12/03/22 12/03/22 17:02 18:22 19:51 Temperature Pulse Rate 72 83 82 Respiratory 18 18 18 Rate Blood Pressure 136/86 146/78 130/95 O2 Sat by Pulse 94 L 93 L 95 Oximetry 12/03/22 21:24 Temperature Pulse Rate 87 Respiratory 18 Rate Blood Pressure 129/80 O2 Sat by Pulse 94 L Oximetry Medical Decision Making - Medical Decision Making EKG was interpreted by myself. EKG shows a sinus rhythm at 69 bpm DC interval is on a 59 QRS is 97 Q-T intervals 360 QTC is 387. Patient's EKG shows no ST segment elevation or depression. Was pt. sent in by a medical professional or institution (, [facility], SENIOR COPYWRITER, urgent care, hospital, or halfway...) When possible be specific @ -No Did you speak to anyone other than the patient for history (EMS, parent, family, police, friend...)? What history was obtained from this source @ -No Did you review nursing and triage notes (agree or disagree)? Why? @ -I reviewed and agree with nursing and triage notes Were old charts reviewed (outside hosp., previous admission, EMS record, old EKG, old radiological studies, urgent care reports/EKG's, halfway records)? Report findings @ -. Prior charts prior lab work on this patient Differential Diagnosis (chest pain, altered mental status, abdominal pain women, abdominal pain men, vaginal bleeding, weakness, fever, dyspnea, syncope, headache, dizziness, GI bleed, back pain, seizure, CVA, palpatations, mental hea lth, musculoskeletal)? @ -Differential Chest Pain: Stable Angina, Unstable Angina, STEMI, NSTEMI Aortic Dissection, Pneumothorax, Musculoskeletal, Esophageal Spasm GERD, Cholecystitis, Pancreatitis, Zoster, this is not meant to be an all-inclusive list. EKG interpreted by me (3pts min.). @ -As above X-rays interpreted by me (1pt min.). @ -Chest x-ray showed no acute abnormality. CT interpreted by me (1pt min.). @ -None done U/S interpreted by me (1pt. min.). @ -None done What testing was considered but not performed or refused? (CT, X-rays, U/S, labs)? Why? @ -None What meds were considered but not given or refused? Why? @ -None Did you discuss the management of the patient with other professionals (marques ramesh i.e. , PA, SENIOR COPYWRITER, lab, RT, psych nurse, social media content manager, piece hand, teacher, child support case officer, case assembler)? Give summary @ -I spoke with Dr. Delarosa and he agreed to admit the patient Was smoking cessation discussed for >3mins.? @ -No Was critical care preformed (if so, how long)? @ -No Were there social determinants of health that impacted care today? How? (Homelessness, low income, unemployed, alcoholism, drug addiction, transportation, low edu. Level, literacy, decrease access to med. care, alf, rehab)? @ -No Was there de-escalation of care discussed even if they declined (Discuss DNR or withdrawal of care, Hospice)? DNR status @ -No What co-morbidities impacted this encounter? (DM, HTN, Smoking, COPD, CAD, Cancer, CVA, ARF, Chemo, Hep., AIDS, mental health diagnosis, sleep apnea, morbid obesity)? @ -None Was patient admitted / discharged? Hospital course, mention meds given and route, prescriptions, significant lab abnormalities, going to OR and other pertinent info. @ -Patient was bradycardic in the emergency continue to have chest pain labs were essentially normal and x-rays normal and I admitted the patient and consult cardiology Undiagnosed new problem with uncertain prognosis? @ -No Drug Therapy requiring intensive monitoring for toxicity (Heparin, Nitro, Insul in, Cardizem)? @ -No Were any procedures done? @ -No Diagnosis/symptom? @ -Bradycardia Acute, or Chronic, or Acute on Chronic? @ -Acute Uncomplicated (without systemic symptoms) or Complicated (systemic symptoms)? @ -Complicated Side effects of treatment? @ -No Exacerbation, Progression, or Severe Exacerbation? @ -No Poses a threat to life or bodily function? How? (Chest pain, [place], NH, pneumonia, PE, COPD, DKA, ARF, appy, cholecystitis, CVA, Diverticulitis, Homicidal, Suicidal, threat to staff... and all critical care pts) @ -Yes this could lead to syncope Diagnosis/symptom? @ -Hypertensive urgency Acute, or Chronic, or Acute on Chronic? @ -Acute Uncomplicated (without systemic symptoms) or Complicated (systemic symptoms)? @ -Complicated Side effects of treatment? @ -none Exacerbation, Progression, or Severe Exacerbation] @ -no Poses a threat to life or bodily function? @ -no Diagnosis/symptom? @ -Dizziness Acute, or Chronic, or Acute on Chronic? @ -Acute Uncomplicated (without systemic symptoms) or Complicated (systemic symptoms)? @ -Complicated Side effects of treatment? @ -none Exacerbation, Progression, or Severe Exacerbation] @ -no Poses a threat to life or bodily function? @ -no - Lab Data Result diagrams: 12/03/22 15:25 12/03/22 15:25 Lab Results 12/03/22 12/03/22 12/03/22 Range/Units 15:25 15:25 15:25 WBC 8.9 (3.8-10.6) k/uL RBC 4.83 (4.30-5.90) m/uL Hgb 14.8 (13.0-17.5) gm/dL Hct 42.9 (39.0-53.0) % MCV 88.9 (80.0-100.0) fL MCH 30.6 (25.0-35.0) pg MCHC 34.5 (31.0-37.0) g/dL RDW 14.3 (11.5-15.5) % Plt Count 256 (150-450) k/uL MPV 7.0 Neutrophils % 73 % Lymphocytes % 17 % Monocytes % 7 % Eosinophils % 1 % Basophils % 1 % Neutrophils # 6.4 (1.3-7.7) k/uL Lymphocytes # 1.5 (1.0-4.8) k/uL Monocytes # 0.6 (0-1.0) k/uL Eosinophils # 0.1 (0-0.7) k/uL Basophils # 0.1 (0-0.2) k/uL PT 10.6 (9.0-12.0) sec INR 1.0 (<1.2) APTT 23.1 (22.0-30.0) sec D-Dimer (<0.60) mg/L FEU Sodium 139 (137-145) mmol/L Potassium 4.5 (3.5-5.1) mmol/L Chloride 103 (98-107) mmol/L Carbon Dioxide 27 (22-30) mmol/L Anion Gap 9 mmol/L BUN 14 (9-20) mg/dL Creatinine 0.98 (0.66-1.25) mg/dL Est GFR (CKD-EPI)AfAm >90 (>60 ml/min/1.73 sqM) Est GFR (CKD-EPI)NonAf 83 (>60 ml/min/1.73 sqM) Glucose 96 (74-99) mg/dL Calcium 9.1 (8.4-10.2) mg/dL Magnesium 1.8 (1.6-2.3) mg/dL Total Bilirubin 0.9 (0.2-1.3) mg/dL AST 39 (17-59) U/L ALT 55 H (4-49) U/L Alkaline Phosphatase 90 (38-126) U/L Troponin I (0.000-0.034) ng/mL Total Protein 6.7 (6.3-8.2) g/dL Albumin 4.1 (3.5-5.0) g/dL 12/03/22 12/03/22 Range/Units 15:25 15:25 WBC (3.8-10.6) k/uL RBC (4.30-5.90) m/uL Hgb (13.0-17.5) gm/dL Hct (39.0-53.0) % MCV (80.0-100.0) fL MCH (25.0-35.0) pg MCHC (31.0-37.0) g/dL RDW (11.5-15.5) % Plt Count (150-450) k/uL MPV Neutrophils % % Lymphocytes % % Monocytes % % Eosinophils % % Basophils % % Neutrophils # (1.3-7.7) k/uL Lymphocytes # (1.0-4.8) k/uL Monocytes # (0-1.0) k/uL Eosinophils # (0-0.7) k/uL Basophils # (0-0.2) k/uL PT (9.0-12.0) sec INR (<1.2) APTT (22.0-30.0) sec D-Dimer 1.08 H (<0.60) mg/L FEU Sodium (137-145) mmol/L Potassium (3.5-5.1) mmol/L Chloride (98-107) mmol/L Carbon Dioxide (22-30) mmol/L Anion Gap mmol/L BUN (9-20) mg/dL Creatinine (0.66-1.25) mg/dL Est GFR (CKD-EPI)AfAm (>60 ml/min/1.73 sqM) Est GFR (CKD-EPI)NonAf (>60 ml/min/1.73 sqM) Glucose (74-99) mg/dL Calcium (8.4-10.2) mg/dL Magnesium (1.6-2.3) mg/dL Total Bilirubin (0.2-1.3) mg/dL AST (17-59) U/L ALT (4-49) U/L Alkaline Phosphatase (38-126) U/L Troponin I <0.012 (0.000-0.034) ng/mL Total Protein (6.3-8.2) g/dL Albumin (3.5-5.0) g/dL Disposition Clinical Impression: Bradycardia, Hypertensive urgency, Dizziness Disposition: ADMITTED IP TO THIS HOSP
--- NOTE | 2022-12-03 15:23 | XR ---
EXAMINATION TYPE: XR chest 2V DATE OF EXAM: 12/03/2022 COMPARISON: 09/26/2022 HISTORY: Shortness of breath TECHNIQUE: Frontal and lateral views of the chest are obtained. FINDINGS: Scattered senescent parenchymal changes noted. Hyperinflation compatible with COPD. No evidence for infiltrate. No evidence for atelectasis. Heart size is stable. Mediastinal structures are stable and grossly unremarkable. No evidence for hilar prominence. Degenerative changes dorsal spine. IMPRESSION: 1. No evidence for acute pulmonary disease.
[2022-12-03 15:45] LABS: Basophils # (A) 0.1 k/uL (0-0.2); Basophils % (A) 1 %; Eosinophils # (A) 0.1 k/uL (0-0.7); Eosinophils % (A) 1 %; HCT 42.9 % (39.0-53.0); HGB 14.8 gm/dL (13.0-17.5); Lymphocytes # (A) 1.5 k/uL (1.0-4.8); Lymphocytes % (A) 17 %; MCH 30.6 pg (25.0-35.0); MCHC 34.5 g/dL (31.0-37.0); MCV 88.9 fL (80.0-100.0); Monocytes # (A) 0.6 k/uL (0-1.0); Monocytes % (A) 7 %; Neutrophils # (A) 6.4 k/uL (1.3-7.7); Neutrophils % (A) 73 %; Platelet Count 256 k/uL (150-450); RBC 4.83 m/uL (4.30-5.90); RDW 14.3 % (11.5-15.5); WBC 8.9 k/uL (3.8-10.6)
[2022-12-03 16:03] LABS: ALT 55 U/L (4-49); AST 39 U/L (17-59); African American GFR (CKD) >90 (>60 ml/min/1.73 sqM); Albumin 4.1 g/dL (3.5-5.0); Alkaline Phosphatase 90 U/L (38-126); Anion Gap 9 mmol/L; Blood Urea Nitrogen 14 mg/dL (9-20); Calcium 9.1 mg/dL (8.4-10.2); Carbon Dioxide 27 mmol/L (22-30); Chloride 103 mmol/L (98-107); Glucose 96 mg/dL (74-99); Magnesium 1.8 mg/dL (1.6-2.3); Non-African American GFR(CKD) 83 (>60 ml/min/1.73 sqM); Partial Thromboplastin Time 23.1 sec (22.0-30.0); Potassium 4.5 mmol/L (3.5-5.1); Prothrombin Time 10.6 sec (9.0-12.0); Sodium 139 mmol/L (137-145); Total Bilirubin 0.9 mg/dL (0.2-1.3); Total Protein 6.7 g/dL (6.3-8.2)
[2022-12-03] MEDS ORDERED: SODIUM CHLORIDE 0.9% 1,000 ML IV ONE (16:41)
--- NOTE | 2022-12-03 18:13 | CT ---
EXAMINATION TYPE: CT chest angio for PE CT DLP: 430.9 mGycm, Automated exposure control for dose reduction was used. DATE OF EXAM: 12/03/2022 6:02 PM COMPARISON: Chest radiograph from same day. Multiple CTs of the chest with most recent on 07/21/2022 . CLINICAL INDICATION:Male, 62 years old with history of Elevated d-dimer, chest pain; elevated d-dimer TECHNIQUE/CONTRAST: CTA scan of the thorax is performed with IV Contrast, patient injected with 100 mL of Isovue 370, pul monary embolism protocol. MIP images are created and reviewed [facility] FINDINGS: Pulmonary Artery: Motion artifact limits evaluation of the lungs. Poor bolus timing limits evaluation for pulmonary embolus. There is no evidence for a central filling defect within the pulmonary vascul ature to suggest acute pulmonary embolism. Limited evaluation of the segmental and subsegmental branc hes secondary to bolus timing. The pulmonary artery is of normal size. Lungs/Pleura: Centrilobular emphysema changes are present throughout the lungs there is also parasept al emphysema changes. No evidence of focal consolidation, pleural effusion or pneumothorax. Airway: Large airways are patent. Heart: Heart is within normal limits for size. Vasculature: No evidence of aortic aneurysm. There is a 4 vessel aortic arch. Scattered atheroscleros is is present. Mediastinum: No gross evidence of adenopathy. Musculoskeletal: No acute osseous abnormalities Soft Tissues: Unremarkable. Lower neck: No significant findings. Upper Abdomen: No significant findings. IMPRESSION: 1. No evidence of central pulmonary embolism. Limited evaluation of the segmental and subsegmental br anches. 2. Moderate emphysema changes.
[2022-12-03] MEDS ORDERED: NITROGLYCERIN SL TABS 0.4 MG TAB SUBLINGUAL PRN (20:24)
[2022-12-03] MEDS ORDERED: IPRATROPIUM-ALBUTEROL 3 ML NEB INHALATION PRN (20:24)
[2022-12-03] MEDS ORDERED: BENZONATATE 100 MG CAP PO PRN (20:24)
[2022-12-03] MEDS: PANTOPRAZOLE 40 MG TABLET PO SCH (20:37)
[2022-12-03] MEDS ORDERED: ATORVASTATIN 80 MG TAB PO SCH (21:00)
[2022-12-04] MEDS ORDERED: METOPROLOL TARTRATE 25 MG TAB PO SCH (07:30)
[2022-12-04 08:48] VITALS: TEMP 97.9
[2022-12-04] MEDS ORDERED: ISOSORBIDE MONONITRATE ER 30 MG TAB.ER.24H PO SCH (09:00)
[2022-12-04] MEDS ORDERED: LOSARTAN 50 MG TAB PO SCH (09:00)
[2022-12-04] MEDS ORDERED: FLUoxetine HCL 20 MG CAP PO SCH ×2 (09:00)
[2022-12-04] MEDS ORDERED: ASPIRIN 81 MG PO SCH (09:00)
[2022-12-04] MEDS ORDERED: CHOLECALCIFEROL 125 MCG (5000 IU) TABLET PO SCH (09:00)
[2022-12-04] MEDS ORDERED: NON FORMULARY DRUG (Fluoxetine Hcl [Prozac] 40 MG Capsule) PO SCH (09:00)
[2022-12-04] MEDS: PANTOPRAZOLE 40 MG TABLET PO SCH (09:51)
--- NOTE | 2022-12-04 11:05 | CA ---
Transthoracic Echo Report Name: Sonu Garcia Age: 62 Gender: M : 1960 Exam Date: 12/04/2022 08:49 Exam Location: [place] [facility] Ht (in): 66 Wt (lb): 185 Ordering Physician: Lissy Perry Attending/Referring Phys: [id number], Vicky [employer] marga charles Procedure CPT: Indications: LV function, CP Cardiac Hx: Technical Quality: Fair Contrast 1: Total Dose (mL): Contrast 2: Total Dose (mL): MEASUREMENTS (Male / Female) Normal Values 2D ECHO LVOT Diameter 2.0 cm Aortic Root Diameter 2.7 cm LA Systolic Diameter LX 2.8 cm 3.0 - 4.0 / 2.7 - 3.8 cm LV Diastolic Volume MOD BP 46.7 cm??? 67 - 155 / 56 - 104 cm??? LV Systolic Volume MOD BP 15.1 cm??? 22 - 58 / 19 - 49 cm??? LV Ejection Fraction MOD BP 67.6 % >= 55 % LV Diastolic Volume MOD 4C 39.6 cm??? LV Systolic Volume MOD 4C 10.8 cm??? LV Ejection Fraction MOD 4C 72.6 % LV Diastolic Length 4C 6.1 cm LV Systolic Length 4C 5.2 cm LV Diastolic Volume MOD 2C 55.0 cm??? LV Systolic Volume MOD 2C 20.6 cm??? LV Ejection Fraction MOD 2C 62.5 % LV Diastolic Length 2C 6.2 cm LV Systolic Length 2C 5.0 cm LA Volume 33.8 cm??? 18 - 58 / 22 - 52 cm??? DOPPLER AV Peak Velocity 161.4 cm/s AV Peak Gradient 10.4 mmHg LVOT Peak Velocity 95.5 cm/s LVOT Peak Gradient 3.6 mmHg AV Area Cont Eq pk 1.9 cm??? MV Peak Velocity 102.6 cm/s MV Peak Gradient 4.2 mmHg MV Mean Velocity 50.2 cm/s MV Mean Gradient 1.3 mmHg MV Velocity Time Integral 31.5 cm Mitral E Point Velocity 77.8 cm/s Mitral A Point Velocity 82.6 cm/s Mitral E to A Ratio 0.9 MV Deceleration Time 222.3 ms MV E' Velocity 7.7 cm/s Mitral E to MV E' Ratio 10.1 TR Peak Velocity 208.3 cm/s TR Peak Gradient 17.3 mmHg Right Ventricular Systolic Press 22.8 mmHg PV Peak Velocity 135.3 cm/s PV Peak Gradient 7.3 mmHg FINDINGS Left Ventricle Left ventricular ejection fraction is estimated at 55-60 %.normal left ventricular wall motion. Left ventricular cavity size normal. Normal left ventricular diastolic filling pattern. Right Ventricle Normal right ventricular size. RVSP= 31mmhg Right Atrium Normal right atrial size. Left Atrium Normal left atrial size. Mitral Valve Structurally normal mitral valve. No mitral stenosis, or prolapse.trace to mild mitral regurgitation. Aortic Valve Aortic valve not well visualized. No aortic valve stenosis or regurgitation. Tricuspid Valve Structurally normal tricuspid valve. Mild TR. Pulmonic Valve Pulmonic valve not well visualized. No pulmonic regurgitation. Pericardium Normal pericardium. Aorta Normal size aortic root and proximal ascending aorta. CONCLUSIONS 1. Normal left ventricular size and systolic function 2. Mild tricuspid regurgitation with no evidence of pulmonary hypertension 3. Trace to mild mitral regurgitation Previewed by: Dr. Nancy Lopez MD (Electronically Signed) Final Date: 04 December 2022 11:04
--- NOTE | 2022-12-04 11:43 | P.HPIM ---
History of Present Illness 62-year-old male came in with complaints of chest pressure-like sensation restarted yesterday along with slight lightheadedness and a pressure-like sensation resolved at this time. Patient is to be a smoker and quit many years ago patient does have wheezing on exam. Patient is admitted for cardiology evaluation patient had a catheterization which did not require any intervention and stent placement. Patient doesn't have any significant stenosis at the time. Patient's troponins are negative EKG did not show any significant acute abnormality. Patient denied any fever chills patient denied any significant cough. Patient does have cardiac history REVIEW OF SYSTEMS: CONSTITUTIONAL: No fever, no malaise, no fatigue. HEENT: No recent visual problems or hearing problems. Denied any sore throat. CARDIOVASCULAR: No orthopnea, PND, no palpitations, no syncope. PULMONARY: No shortness of breath, no cough, no hemoptysis. GASTROINTESTINAL: No diarrhea, no nausea, no vomiting, no abdominal pain. NEUROLOGICAL: No headaches, no weakness, no numbness. HEMATOLOGICAL: Denies any bleeding or petechiae. GENITOURINARY: Denies any burning micturition, frequency, or urgency. MUSCULOSKELETAL/RHEUMATOLOGICAL: Denies any joint pain, swelling, or any muscle pain. ENDOCRINE: Denies any polyuria or polydipsia. The rest of the 14-point review of systems is negative. PHYSICAL EXAMINATION: GENERAL: The patient is alert and oriented x3, not in any acute distress. Well developed, well nourished. HEENT: Pupils are round and equally reacting to light. EOMI. No scleral icterus. No conjunctival pallor. Normocephalic, atraumatic. No pharyngeal erythema. No thyromegaly. CARDIOVASCULAR: S1 and S2 present. No murmurs, rubs, or gallops. PULMONARY: Mild expiratory wheezing ABDOMEN: Soft, nontender, nondistended, norm oactive bowel sounds. No palpable organomegaly. MUSCULOSKELETAL: No joint swelling or deformity. EXTREMITIES: No cyanosis, clubbing, or pedal edema. NEUROLOGICAL: Gross neurological examination did not reveal any focal deficits. SKIN: No rashes. Assessment and plan -Chest pressure-like sensation along with some lightheadedness: An episode of chest pressure I believe is secondary to bronchospasm and COPD, rule out a concurrent syndromes cardiology evaluation as mentioned above. Patient will be given a dose of systemic steroids followed by inhaled steroids for her home patient will continue with his albuterol and ipratropium -COPD with acute exacerbation -Elevated d-dimer: Ruled out pulmonary embolism CT angios negative for any PE -Gastroesophageal reflux disease-hyperlipidemia -Hypertension next Coronary disease with stents in the past -CVA in the past patient is cleared by cardiology and will be discharged Past Medical History Past Medical History: Chest Pain / Angina, COPD, CVA/TIA, GERD/Reflux, Hyperlipidemia, Hypertension, Myocardial Infarction (PR) Additional Past Medical History / Comment(s): COVID April 2022, multiple MIs, TIA, peripheral vision loss of left eye Last Myocardial Infarction Date:: 2020 History of Any Multi-Drug Resistant Organisms: None Reported Past Surgical History: Heart Catheterization With Stent Additional Past Surgical History / Comment(s): 2 cardiac stents Past Anesthesia/Blood Transfusion Reactions: No Reported Reaction Date of Last Stent Placement:: 2020 Smoking Status: Former smoker - Past Family History Father Family Medical History: Myocardial Infarction (PR) Brother(s) Family Medical History: Myocardial Infarction (PR) Medications and Allergies Home Medications Medication Instructions Recorded Confirmed Type Atorvastatin Calcium [Lipitor] 80 mg PO HS 04/26/22 12/03/22 History FLUoxetine HCL [PROzac] 20 mg PO DAILY 04/26/22 12/03/22 History FLUoxetine HCL [PROzac] 40 mg PO DAILY 04/26/22 12/03/22 History Isosorbide Mononitrate ER [Imdur] 90 mg PO DAILY 04/26/22 12/03/22 History Metoprolol Tartrate [Lopressor] 25 mg PO BID-W/MEALS 04/26/22 12/03/22 History Nitroglycerin Sl Tabs [Nitrostat] 0.4 mg SUBLINGUAL Q5M PRN 04/26/22 12/03/22 History Pantoprazole Sodium 40 mg PO BID 04/26/22 12/03/22 History rOPINIRole HCL [Requip] 0.5 mg PO TID 04/26/22 12/03/22 History Cholecalciferol [Vitamin D3 (125 125 mcg PO DAILY 30 Days #30 tab 04/30/22 12/03/22 Rx Mcg = 5000 Iu)] Aspirin 81 mg PO DAILY #30 tab 05/14/22 12/03/22 Rx Benzonatate [Tessalon Perles] 100 mg PO BID PRN 12/03/22 12/03/22 History Famotidine [Pepcid] 20 mg PO HS PRN 12/03/22 12/03/22 History Ipratropium-Albuterol Nebulize 3 ml INHALATION RT-Q6H PRN 12/03/22 12/03/22 History [Duoneb 0.5 mg-3 mg/3 ml Soln] Losartan [Cozaar] 50 mg PO DAILY 12/03/22 12/03/22 History Budesonide-Formot 160-4.5 Mcg 2 puff INHALATION BID #10.2 gm 12/04/22 Rx [Symbicort 160-4.5 Mcg Inhaler] Allergies Allergy/AdvReac Type Severity Reaction Status Date / Time codeine Allergy Swelling Verified 12/03/22 17:07 Physical Exam Vitals: Vital Signs Temp Pulse Pulse Resp BP BP BP 12/04/22 08:42 97.9 F 75 20 154/91 12/04/22 04:00 78 17 119/71 12/03/22 23:17 98.1 F 75 18 118/79 12/03/22 21:24 87 18 129/80 12/03/22 19:51 82 18 130/95 12/03/22 18:22 83 18 146/78 12/03/22 17:02 72 18 136/86 12/03/22 16:38 18 12/03/22 15:33 68 18 143/82 12/03/22 14:02 98.1 F 68 20 153/86 Pulse Ox 12/04/22 08:42 96 12/04/22 04:00 98 12/03/22 23:17 99 12/03/22 21:24 94 L 12/03/22 19:51 95 12/03/22 18:22 93 L 12/03/22 17:02 94 L 12/03/22 16:38 12/03/22 15:33 95 12/03/22 14:02 97 Intake and Output 12/03/22 12/04/22 12/04/22 22:59 06:59 14:59 Intake Total 240 Balance 240 Intake: Oral 240 Other: Weight 83.915 kg Results CBC & Chem 7: 12/03/22 15:25 12/03/22 15:25 Labs: Abnormal Lab Results - Last 24 Hours (Table) 12/03/22 12/03/22 Range/Units 15:25 15:25 D-Dimer 1.08 H (<0.60) mg/L FEU ALT 55 H (4-49) U/L Thrombosis Risk Factor Assmnt - Choose All That Apply Any of the Below Risk Factors Present?: Yes Each Factor Represents 1 point: Abnormal pulmonary function (COPD), Obesity (BMI >25) Each Risk Factor Represents 2 Points: Age 61-74 years Other congenital or acquired thrombophilia - If yes, enter type in comment: No Thrombosis Risk Factor Assessment Total Risk Factor Score: 4 Thrombosis Risk Factor Assessment Level: Moderate Risk
--- NOTE | 2022-12-04 11:43 | P.DS ---
Providers Date of admission: 12/03/22 16:41 Attending physician: Adrian Delarosa Consults: 12/03/22 16:41 Consult Physician Urgent Consulting Provider: [facility] Consult Reason/Comments: Bradycardic, hypertensive urgency Do you want consulting provider notified?: Yes Primary care physician: [facility] Course: 62-year-old male came in with complaints of chest pressure-like sensation restarted yesterday along with slight lightheadedness and a pressure-like sensation resolved at this time. Patient is to be a smoker and quit many years ago patient does have wheezing on exam. Patient is admitted for cardiology evaluation patient had a catheterization which did not require any intervention and stent placement. Patient doesn't have any significant stenosis at the time. Patient's troponins are negative EKG did not show any significant acute abnormality. Patient denied any fever chills patient denied any significant cough. Patient does have cardiac history REVIEW OF SYSTEMS: CONSTITUTIONAL: No fever, no malaise, no fatigue. HEENT: No recent visual problems or hearing problems. Denied any sore throat. CARDIOVASCULAR: No orthopnea, PND, no palpitations, no syncope. PULMONARY: No shortness of breath, no cough, no hemoptysis. GASTROINTESTINAL: No diarrhea, no nausea, no vomiting, no abdominal pain. NEUROLOGICAL: No headaches, no weakness, no numbness. HEMATOLOGICAL: Denies any bleeding or petechiae. GENITOURINARY: Denies any burning micturition, frequency, or urgency. MUSCULOSKELETAL/RHEUMATOLOGICAL: Denies any joint pain, swelling, or any muscle pain. ENDOCRINE: Denies any polyuria or polydipsia. The rest of the 14-point review of systems is negative. PHYSICAL EXAMINATION: GENERAL: The patient is alert and oriented x3, not in any acute distress. Well developed, well nourished. HEENT: Pupils are round and equally reacting to light. EOMI. No scleral icterus. No conjunctival pallor. Normocephalic, atraumatic. No pharyngeal erythema. No thyromegaly. CARDIOVASCULAR: S1 and S2 present. No murmurs, rubs, or gallops. PULMONARY: Mild expiratory wheezing ABDOMEN: Soft, nontender, nondistended, normoactive bowel sounds. No palpable organomegaly. MUSCULOSKELETAL: No joint swelling or deformity. EXTREMITIES: No cyanosis, clubbing, or pedal edema. NEUROLOGICAL: Gross neurological examination did not reveal any focal deficits. SKIN: No rashes. Assessment and plan -Chest pressure-like sensation along with some lightheadedness: An episode of chest pressure I believe is secondary to bronchospasm and COPD, rule out a concurrent syndromes cardiology evaluation as mentioned above. Patient will be given a dose of systemic steroids followed by inhaled steroids for her home patient will continue with his albuterol and ipratropium -COPD with acute exacerbation -Elevated d-dimer: Ruled out pulmonary embolism CT angios negative for any PE -Gastroesophageal reflux disease-hyperlipidemia -Hypertension next Coronary disease with stents in the past -CVA in the past patient is cleared by cardiology and will be discharged Plan - Discharge Summary Discharge Rx Participant: No New Discharge Prescriptions: New Budesonide-Formot 160-4.5 Mcg [Symbicort 160-4.5 Mcg Inhaler] 2 puff INHALATION BID #10.2 gm Continue Isosorbide Mononitrate ER [Imdur] 90 mg PO DAILY FLUoxetine HCL [PROzac] 40 mg PO DAILY Nitroglycerin Sl Tabs [Nitrostat] 0.4 mg SUBLINGUAL Q5M PRN PRN Reason: Chest Pain rOPINIRole HCL [Requip] 0.5 mg PO TID Losartan [Cozaar] 50 mg PO DAILY Benzonatate [Tessalon Perles] 100 mg PO BID PRN PRN Reason: Cough Ipratropium-Albuterol Nebulize [Duoneb 0.5 mg-3 mg/3 ml Soln] 3 ml INHALATION RT-Q6H PRN PRN Reason: Shortness Of Breath Metoprolol Tartrate [Lopressor] 25 mg PO BID-W/MEALS Pantoprazole Sodium 40 mg PO BID Atorvastatin Calcium [Lipitor] 80 mg PO HS FLUoxetine HCL [PROzac] 20 mg PO DAILY Cholecalciferol [Vitamin D3 (125 Mcg = 5000 Iu)] 125 mcg PO DAILY 30 Days #30 tab Aspirin 81 mg PO DAILY #30 tab Famotidine [Pepcid] 20 mg PO HS PRN PRN Reason: Gi Upset Discharge Medication List Atorvastatin Calcium [Lipitor] 80 mg PO HS 04/26/22 [History] FLUoxetine HCL [PROzac] 20 mg PO DAILY 04/26/22 [History] FLUoxetine HCL [PROzac] 40 mg PO DAILY 04/26/22 [History] Isosorbide Mononitrate ER [Imdur] 90 mg PO DAILY 04/26/22 [History] Metoprolol Tartrate [Lopressor] 25 mg PO BID-W/MEALS 04/26/22 [History] Nitroglycerin Sl Tabs [Nitrostat] 0.4 mg SUBLINGUAL Q5M PRN 04/26/22 [History] Pantoprazole Sodium 40 mg PO BID 04/26/22 [History] rOPINIRole HCL [Requip] 0.5 mg PO TID 04/26/22 [History] Cholecalciferol [Vitamin D3 (125 Mcg = 5000 Iu)] 125 mcg PO DAILY 30 Days #30 tab 04/30/22 [Rx] Aspirin 81 mg PO DAILY #30 tab 05/14/22 [Rx] Benzonatate [Tessalon Perles] 100 mg PO BID PRN 12/03/22 [History] Famotidine [Pepcid] 20 mg PO HS PRN 12/03/22 [History] Ipratropium-Albuterol Nebulize [Duoneb 0.5 mg-3 mg/3 ml Soln] 3 ml INHALATION RT-Q6H PRN 12/03/22 [History] Losartan [Cozaar] 50 mg PO DAILY 12/03/22 [History] Budesonide-Formot 160-4.5 Mcg [Symbicort 160-4.5 Mcg Inhaler] 2 puff INHALATION BID #10.2 gm 12/04/22 [Rx] Follow up Appointment(s)/Referral(s): Yara Wong MD [Primary Care Provider] - 3 Days Jarred Mejia MD [STAFF PHYSICIAN] - 1 Week
[2022-12-04] MEDS ORDERED: IPRATROPIUM-ALBUTEROL 3 ML NEB INHALATION SCH (12:00)
[2022-12-04] MEDS ORDERED: methylPREDNISolone SOD SUCCI 125 MG/2 ML VIAL IV SCH (12:00)
[2022-12-04 12:16] VITALS: BP 105/64; RESP 18
--- NOTE | 2022-12-04 12:16 | P.CRDCN ---
History of Present Illness History of present illness: HISTORY OF PRESENT ILLNESS: This is a 62-year-old male with a past medical history significant for COPD on home oxygen, hypertension, hyperlipidemia, and coronary artery disease with previous stenting. Patient follows in the office with Dr. Fonseca. We have been asked to see the patient in consultation for chest pain. Patient examined at the bedside. Patient states yesterday he began having chest discomfort. He states the pain was on the left side of his chest. He states the pain is worse with movement, worse with deep inspiration, and also reproducible with chest wall palpation. He denied any shortness of breath. He states that he checked his blood pressure at home and it was found to be elevated with a systolic around 200. He states his took his blood pressure multiple times within a short amount of time. Patients blood pressures have been well controlled since coming to the hospital. * EKG reveals sinus mechanism with no signs of acute ischemia * Chest xray no evidence for acute pulmonary disease * Chest CT: Negative for PE * Laboratory data: W BC 8.9. Hemoglobin 14.8. Platelet count 256. D-dimer 1.06. Sodium 139. Potassium 4.5. B UN 14. Creatinine 0.98. Troponin negative 2 * Current home cardiac medications include Lipitor 80 mg at night, metoprolol tartrate 25 mg twice a day, losartan 50 mg daily, Imdur 90 mg daily, and a spirin 81 mg daily * Echocardiogram obtained this admission reveals normal left ventricular size and systolic function, mild TR, trace to mild MR * Cardiac catheterization history: June 2022 revealing mild coronary artery disease including 20-30% circumflex, 10-20% LAD stenosis with patent nondomin ant RCA stent. REVIEW OF SYSTEMS: At the time of my exam: CONSTITUTIONAL: Denies fever or chills. HEENT: Denies blurred vision, vision changes, or eye pain. Denies hemoptysis CARDIOVASCULAR: Denies chest pain. Denies orthopnea. Denies PND. Denies palpitations RESPIRATORY: Denies shortness of breath. GASTROINTESTINAL: Denies abdominal pain. Denies nausea or vomiting. HEMATOLOGIC: Denies bleeding disorders. GENITOURINARY: Denies any blood in urine. SKIN: Denies pruitis. Denies rash. PHYSICAL EXAM: VITAL SIGNS: Reviewed. GENERAL: Well-developed in no acute distress. HEENT: Head is normocephalic. Pupils are equal, round. Sclerae anicteric. Mucous membranes of the mouth are moist. Neck supple. No JVD or thyromegaly LUNGS: Respirations even and unlabored. Lungs essentially clear to auscultation bilaterally. HEART: Regular rate and rhythm. S1 and S2 heard. ABDOMEN: Soft. Nondistended. Nontender. EXTREMITIES: Normal range of motion. No clubbing or cyanosis. Peripheral pulses intact. No lower extremity edema NEUROLOGIC: Awake and alert. Oriented x 3. ASSESSMENT: Chest pain, atypical, troponin negative 2 Coronary artery disease with previous stenting to the RCA COPD with home oxygen use Hypertension Hyperlipidemia PLAN: An acute coronary event has been ruled out Resume home cardiac medications 2-D echo obtained and reviewed Patient may be discharged home today from a cardiac point and follow up on an outpatient basis with Dr. Fonseca Nurse practitioner note has been reviewed by physician. Signing provider agrees with the documented findings, assessment, and plan of care. Past Medical History Past Medical History: Chest Pain / Angina, COPD, CVA/TIA, GERD/Reflux, Hyperlipidemia, Hypertension, Myocardial Infarction (SD) Additional Past Medical History / Comment(s): COVID April 2022, multiple MIs, TIA, peripheral vision loss of left eye Last Myocardial Infarction Date:: 2020 History of Any Multi-Drug Resistant Organisms: None Reported Past Surgical History: Heart Catheterization With Stent Additional Past Surgical History / Comment(s): 2 cardiac stents Past Anesthesia/Blood Transfusion Reactions: No Reported Reaction Date of Last Stent Placement:: 2020 Smoking Status: Former smoker - Past Family History Father Family Medical History: Myocardial Infarction (SD) Brother(s) Family Medical History: Myocardial Infarction (SD) Medications and Allergies Home Medications Medication Instructions Recorded Confirmed Type Atorvastatin Calcium [Lipitor] 80 mg PO HS 04/26/22 12/03/22 History FLUoxetine HCL [PROzac] 20 mg PO DAILY 04/26/22 12/03/22 History FLUoxetine HCL [PROzac] 40 mg PO DAILY 04/26/22 12/03/22 History Isosorbide Mononitrate ER [Imdur] 90 mg PO DAILY 04/26/22 12/03/22 History Metoprolol Tartrate [Lopressor] 25 mg PO BID-W/MEALS 04/26/22 12/03/22 History Nitroglycerin Sl Tabs [Nitrostat] 0.4 mg SUBLINGUAL Q5M PRN 04/26/22 12/03/22 History Pantoprazole Sodium 40 mg PO BID 04/26/22 12/03/22 History rOPINIRole HCL [Requip] 0.5 mg PO TID 04/26/22 12/03/22 History Cholecalciferol [Vitamin D3 (125 125 mcg PO DAILY 30 Days #30 tab 04/30/22 12/03/22 Rx Mcg = 5000 Iu)] Aspirin 81 mg PO DAILY #30 tab 05/14/22 12/03/22 Rx Benzonatate [Tessalon Perles] 100 mg PO BID PRN 12/03/22 12/03/22 History Famotidine [Pepcid] 20 mg PO HS PRN 12/03/22 12/03/22 History Ipratropium-Albuterol Nebulize 3 ml INHALATION RT-Q6H PRN 12/03/22 12/03/22 History [Duoneb 0.5 mg-3 mg/3 ml Soln] Losartan [Cozaar] 50 mg PO DAILY 12/03/22 12/03/22 History Budesonide-Formot 160-4.5 Mcg 2 puff INHALATION BID #10.2 gm 12/04/22 Rx [Symbicort 160-4.5 Mcg Inhaler] Allergies Allergy/AdvReac Type Severity Reaction Status Date / Time codeine Allergy Swelling Verified 12/03/22 17:07 Physical Exam Vitals: Vital Signs Temp Pulse Pulse Resp BP BP BP 12/04/22 08:42 97.9 F 75 20 154/91 12/04/22 04:00 78 17 119/71 12/03/22 23:17 98.1 F 75 18 118/79 12/03/22 21:24 87 18 129/80 12/03/22 19:51 82 18 130/95 12/03/22 18:22 83 18 146/78 12/03/22 17:02 72 18 136/86 12/03/22 16:38 18 12/03/22 15:33 68 18 143/82 12/03/22 14:02 98.1 F 68 20 153/86 Pulse Ox 12/04/22 08:42 96 12/04/22 04:00 98 12/03/22 23:17 99 12/03/22 21:24 94 L 12/03/22 19:51 95 12/03/22 18:22 93 L 12/03/22 17:02 94 L 12/03/22 16:38 12/03/22 15:33 95 12/03/22 14:02 97 Intake and Output 12/03/22 12/04/22 12/04/22 22:59 06:59 14:59 Intake Total 240 Balance 240 Intake: Oral 240 Other: Weight 83.915 kg Results 12/03/22 15:25 12/03/22 15:25 Cardiac Enzymes 12/03/22 12/03/22 12/04/22 Range/Units 15:25 15:25 09:26 AST 39 (17-59) U/L Troponin I <0.012 <0.012 (0.000-0.034) ng/mL Coagulation 12/03/22 Range/Units 15:25 PT 10.6 (9.0-12.0) sec APTT 23.1 (22.0-30.0) sec CBC 12/03/22 Range/Units 15:25 WBC 8.9 (3.8-10.6) k/uL RBC 4.83 (4.30-5.90) m/uL Hgb 14.8 (13.0-17.5) gm/dL Hct 42.9 (39.0-53.0) % Plt Count 256 (150-450) k/uL Comprehensive Metabolic Panel 12/03/22 Range/Units 15:25 Sodium 139 (137-145) mmol/L Potassium 4.5 (3.5-5.1) mmol/L Chloride 103 (98-107) mmol/L Carbon Dioxide 27 (22-30) mmol/L BUN 14 (9-20) mg/dL Creatinine 0.98 (0.66-1.25) mg/dL Glucose 96 (74-99) mg/dL Calcium 9.1 (8.4-10.2) mg/dL AST 39 (17-59) U/L ALT 55 H (4-49) U/L Alkaline Phosphatase 90 (38-126) U/L Total Protein 6.7 (6.3-8.2) g/dL Albumin 4.1 (3.5-5.0) g/dL Current Medications Generic Name Dose Route Start Last Admin Trade Name Freq PRN Reason Stop Dose Admin Albuterol/Ipratropium 3 ml 12/03/22 20:24 Ipratropium-Albuterol 3 Ml Neb INHALATION RT-Q6H PRN Shortness Of Breath Albuterol/Ipratropium 3 ml 12/04/22 12:00 Ipratropium-Albuterol 3 Ml Neb INHALATION RT-QID [facility] Aspirin 81 mg 12/04/22 09:00 12/04/22 09:52 Aspirin 81 Mg PO 81 mg DAILY [facility] Administration Atorvastatin Calcium 80 mg 12/03/22 21:00 12/03/22 20:37 Atorvastatin 80 Mg Tab PO 80 mg HS [facility] Administration Benzonatate 100 mg 12/03/22 20:24 Benzonatate 100 Mg Cap PO BID PRN Cough Budesonide 0.5 mg 12/04/22 20:00 Budesonide 0.5 Mg/2 Ml Nebu INHALATION RT-BID [facility] Cholecalciferol 125 mcg 12/04/22 09:00 12/04/22 09:51 Cholecalciferol 125 Mcg (5000 Iu) Tablet PO 125 mcg DAILY [facility] Administration Fluoxetine HCl 60 mg 12/04/22 09:00 12/04/22 09:50 Fluoxetine Hcl 20 Mg Cap PO 60 mg DAILY [facility] Administration Isosorbide Mononitrate 90 mg 12/04/22 09:00 12/04/22 09:50 Isosorbide Mononitrate Er 30 Mg Tab.Er.24h PO 90 mg DAILY [facility] Administration Losartan Potassium 50 mg 12/04/22 09:00 12/04/22 09:51 Losartan 50 Mg Tab PO 50 mg DAILY [facility] Administration Methylprednisolone Sodium Succinate 60 mg 12/04/22 12:00 Methylprednisolone Sod Succi 125 Mg/2 Ml Vial IV DAILY [facility] Nitroglycerin 0.4 mg 12/03/22 20:24 Nitroglycerin Sl Tabs 0.4 Mg Tab SUBLINGUAL Q5M PRN Chest Pain Pantoprazole Sodium 40 mg 12/03/22 21:00 12/04/22 09:51 Pantoprazole 40 Mg Tablet PO 40 mg BID [facility] Administration Ropinirole HCl 0.5 mg 12/03/22 22:00 12/04/22 09:51 Ropinirole Hcl 0.25 Mg Tab PO 0.5 mg TID [facility] Administration Intake and Output 12/03/22 12/04/22 12/04/22 22:59 06:59 14:59 Intake Total 240 Balance 240 Intake: Oral 240 Other: Weight 83.915 kg 12/03/22 15:25 12/03/22 15:25
[2022-12-04 12:25] VITALS: PULSE 83
[2022-12-04] MEDS ORDERED: BUDESONIDE 0.5 MG/2 ML NEBU INHALATION SCH (20:00)
[2022-12-05] MEDS ORDERED: methylPREDNISolone SOD SUCCI 125 MG/2 ML VIAL IV SCH (09:00)
== END 2022-12-04 15:43 | disposition home or self-care (01) ==
LOC: EC 14:01 → 3SCARD 16:41
PROVIDERS: ADMIT Internal Medicine; ATTEND Internal Medicine
DX: R07.89 Other chest pain (principal); J44.1 Chronic obstructive pulmonary disease with (acute) exacerbation; R00.1 Bradycardia, unspecified; I16.0 Hypertensive urgency; K21.9 Gastro-esophageal reflux disease without esophagitis; E78.5 Hyperlipidemia, unspecified; I10 Essential (primary) hypertension; I25.2 Old myocardial infarction; I25.10 Atherosclerotic heart disease of native coronary artery without angina pectoris; H54.62 Unqualified visual loss, left eye, normal vision right eye; I07.1 Rheumatic tricuspid insufficiency; Z86.16 Personal history of COVID-19; Z95.5 Presence of coronary angioplasty implant and graft; Z87.891 Personal history of nicotine dependence; Z79.899 Other long term (current) drug therapy; Z79.82 Long term (current) use of aspirin; Z79.51 Long term (current) use of inhaled steroids; Z88.5 Allergy status to narcotic agent; Z86.73 Personal history of transient ischemic attack (TIA), and cerebral infarction without residual deficits; Z82.49 Family history of ischemic heart disease and other diseases of the circulatory system; Z99.81 Dependence on supplemental oxygen
CPT/HCPCS: 96361 ×3; 96374; 99285; 36415; 94640; 94760; 93005; 93306; 85379; 80053; 83735; 84484 ×2; 85025; 85610; 85730; 71046; 71275; G0378 ×2; J2930; Q9967

== ENCOUNTER 2023-01-27 13:44 | Inpatient (IN) | payer MEDICARE, OTHER ==
[2023-01-27] MEDS ORDERED: ALBUTEROL NEBULIZED 2.5 MG/3 ML INHALATION STA (14:00)
[2023-01-27] MEDS ORDERED: DEXAMETHASONE SOD PHOSPHATE 10 MG/ML 1 ML VIAL IV STA (14:00)
[2023-01-27] MEDS ORDERED: IPRATROPIUM 0.5 MG/2.5 ML NEBU INHALATION STA (14:00)
[2023-01-27 14:20] LABS: Basophils % (A) 1 %; Eosinophils # (A) 0.1 k/uL (0-0.7); Eosinophils % (A) 2 %; HCT 39.4 % (39.0-53.0); HGB 13.9 gm/dL (13.0-17.5); Lymphocytes # (A) 1.4 k/uL (1.0-4.8); Lymphocytes % (A) 21 %; MCH 31.2 pg (25.0-35.0); MCHC 35.3 g/dL (31.0-37.0); MCV 88.4 fL (80.0-100.0); Mean Platelet Volume 7.5; Monocytes # (A) 0.7 k/uL (0-1.0); Monocytes % (A) 10 %; Neutrophils # (A) 4.3 k/uL (1.3-7.7); Neutrophils % (A) 63 %; Platelet Count 217 k/uL (150-450); RBC 4.46 m/uL (4.30-5.90); RDW 13.2 % (11.5-15.5); WBC 6.7 k/uL (3.8-10.6)
--- NOTE | 2023-01-27 14:29 | ED ---
General Adult HPI - General Chief complaint: Shortness of Breath Stated complaint: HUYEN,sent in PCP Time Seen by Provider: 01/27/23 13:56 Source: patient Mode of arrival: wheelchair - History of Present Illness Initial comments: Dictation was produced using [employer] dictation software. please excuse any grammatical, word or spelling errors. Chief Complaint: 62-year-old male presents to the emergency department for dyspnea History of Present Illness: She 62-year-old male he is brought in from primary care physician's office for evaluation of dyspnea. History obtained from Dr. Eugene, patient and at the bedside. He is allegedly hypoxic at the office. He is been dealing with dyspnea for the last 3-4 days. Has history of COPD. His been using inhalers with no relief. 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 Denies any fever. His cough is nonproductive recently had Covid couple weeks ago however states that he was retested and was negative one week later. The ROS documented in this emergency department record has been reviewed and confirmed by me. Those systems with pertinent positive or negative responses have been documented in the HPI. All other systems are other negative and/or noncontributory. - Related Data Home Medications Medication Instructions Recorded Confirmed Atorvastatin Calcium [Lipitor] 80 mg PO HS 04/26/22 12/03/22 FLUoxetine HCL [PROzac] 20 mg PO DAILY 04/26/22 12/03/22 FLUoxetine HCL [PROzac] 40 mg PO DAILY 04/26/22 12/03/22 Isosorbide Mononitrate ER [Imdur] 90 mg PO DAILY 04/26/22 12/03/22 Metoprolol Tartrate [Lopressor] 25 mg PO BID-W/MEALS 04/26/22 12/03/22 Nitroglycerin Sl Tabs [Nitrostat] 0.4 mg SUBLINGUAL Q5M PRN 04/26/22 12/03/22 Pantoprazole Sodium 40 mg PO BID 04/26/22 12/03/22 rOPINIRole HCL [Requip] 0.5 mg PO TID 04/26/22 12/03/22 Benzonatate [Tessalon Perles] 100 mg PO BID PRN 12/03/22 12/03/22 Famotidine [Pepcid] 20 mg PO HS PRN 12/03/22 12/03/22 Ipratropium-Albuterol Nebulize 3 ml INHALATION RT-Q6H PRN 12/03/22 12/03/22 [Duoneb 0.5 mg-3 mg/3 ml Soln] Losartan [Cozaar] 50 mg PO DAILY 12/03/22 12/03/22 Previous Rx's Medication Instructions Recorded Cholecalciferol [Vitamin D3 (125 125 mcg PO DAILY 30 Days #30 tab 04/30/22 Mcg = 5000 Iu)] Aspirin 81 mg PO DAILY #30 tab 05/14/22 Budesonide-Formot 160-4.5 Mcg 2 puff INHALATION BID #10.2 gm 12/04/22 [Symbicort 160-4.5 Mcg Inhaler] Allergies Allergy/AdvReac Type Severity Reaction Status Date / Time codeine Allergy Swelling Verified 01/27/23 13:51 Review of Systems ROS Statement: Those systems with pertinent positive or pertinent negative responses have been documented in the HPI. ROS Other: All systems not noted in ROS Statement are negative. Past Medical History Past Medical History: Chest Pain / Angina, COPD, CVA/TIA, GERD/Reflux, Hyperlipidemia, Hypertension, Myocardial Infarction (ID) Additional Past Medical History / Comment(s): COVID April 2022, multiple MIs, TIA, peripheral vision loss of left eye Last Myocardial Infarction Date:: 2020 History of Any Multi-Drug Resistant Organisms: None Reported Past Surgical History: Heart Catheterization With Stent Additional Past Surgical History / Comment(s): 2 cardiac stents Past Anesthesia/Blood Transfusion Reactions: No Reported Reaction Date of Last Stent Placement:: 2020 Past Psychological History: No Psychological Hx Reported Smoking Status: Former smoker Past Alcohol Use History: None Reported Past Drug Use History: None Reported - Past Family History Father Family Medical History: Myocardial Infarction (ID) Brother(s) Family Medical History: Myocardial Infarction (ID) General Exam - General Exam Comments Initial Comments: PHYSICAL EXAM: General Impression: Alert and oriented x3, slightly dyspneic HEENT: Normocephalic atraumatic, extra-ocular movements intact, pupils equal and reactive to light bilaterally, mucous membranes moist. Cardiovascular: Heart regular rate and rhythm Chest: Able to complete 5 word sentences, diffuse lung wheezing on auscultation, breathing through pursed lips Abdomen: abdomen soft, non-tender, non-distended, no organomegaly Musculoskeletal: Pulses present and equal in all extremities, no peripheral edema Motor: no focal deficits noted Neurological: CN II-XII grossly intact, no focal motor or sensory deficits noted Skin: Intact with no visualized rashes Psych: Normal affect and mood Course Vital Signs 01/27/23 01/27/23 01/27/23 13:48 14:35 14:46 Temperature 98.2 F Pulse Rate 103 H 93 90 Respiratory 28 H Rate Blood Pressure 176/76 O2 Sat by Pulse 97 Oximetry 01/27/23 14:56 Temperature Pulse Rate 92 Respiratory Rate Blood Pressure O2 Sat by Pulse Oximetry EKG Findings - EKG Comments: EKG Findings:: My EKG interpretation: Ventricular rate 96, sinus rhythm,. 146, QRS 89, QTc 45. No WA prolongation, no QTC prolongation, no ST or T-wave changes noted. Overall, this EKG is unremarkable Medical Decision Making - Medical Decision Making Was pt. sent in by a medical professional or institution (, PA, FORMS ANALYSIS MANAGER, urgent care, hospital, or assisted...) When possible be specific @ -No Did you speak to anyone other than the patient for history (EMS, parent, family, police, friend...)? What history was obtained from this source @ -Case discussed with parent care doctor states that the clinic he was hypoxic and dyspneic Did you review nursing and triage notes (agree or disagree)? Why? @ -I reviewed and agree with nursing and triage notes Were old charts reviewed (outside hosp., previous admission, EMS record, old EKG, old radiological studies, urgent care reports/EKG's, assisted records)? Report findings @ -No old charts were reviewed Differential Diagnosis (chest pain, altered mental status, abdominal pain women, abdominal pain men, vaginal bleeding, musculoskeletal, weakness, fever, dyspnea, syncope, headache, dizziness, GI bleed, back pain, seizure, CVA, palpatations, mental health)? @ -Differential Dyspnea: Coronary syndrome, arrhythmia, tamponade, asthma, COPD, pulmonary embolism, pneumonia, pneumothorax, pulmonary effusion, anaphylaxis, diabetic ketoacidosis, flailed chest, pulmonary contusion, diaphragmatic rupture, anemia, neuromuscular, this is not meant to be an all-inclusive list. EKG interpreted by me (3pts min.). @ -See above X-rays interpreted by me (1pt min.). @ -no acute processes on chest x-ray CT interpreted by me (1pt min.). @ -None done U/S interpreted by me (1pt. min.). @ -None done What testing was considered but not performed or refused? (CT, X-rays, U/S, labs)? Why? @ -None What meds were considered but not given or refused? Why? @ -None Did you discuss the management of the patient with other professionals (professionals i.e. , PA, FORMS ANALYSIS MANAGER, lab, RT, psych nurse, vp digital marketing social media and crm, wedding makeup artist, teacher, weapons electrical engineering officer, case resolution specialist)? Give summary @ -Case discussed with hospitalist for admission Was smoking cessation discussed for >3mins.? @ -No Was critical care preformed (if so, how long)? @ -No Were there social determinants of health that impacted care today? How? (Homelessness, low income, unemployed, alcoholism, drug addiction, transportation, low edu. Level, literacy, decrease access to med. care, fpc, rehab)? @ -No Was there de-escalation of care discussed even if they declined (Discuss DNR or withdrawal of care, Hospice)? DNR status @ -No What co-morbidities impacted this encounter? (DM, HTN, Smoking, COPD, CAD, Cancer, CVA, ARF, Chemo, Hep., AIDS, mental health diagnosis, sleep apnea, morbid obesity)? @ -COPD Was patient admitted / discharged? Hospital course, mention meds given and route, prescriptions, significant lab abnormalities, going to OR and other pertinent info. @ -62-year-old male presents emergency prior clinical presentation consistent with COPD exacerbation. Vital signs upon arrival are within acceptable limits. 97% on room air. Patient does have bouts of mild hypoxia. Given 2 L nasal cannula with improvement of hypoxia. Laboratory evaluation obtained. CBC, coag panel metabolic panel is unremarka ble. Oral testing is negative. Patient still wheezing however feels improved after initial breathing treatment. Will be admitted observation consultation to pulmonology. Undiagnosed new problem with uncertain prognosis? @ -No Drug Therapy requiring intensive monitoring for toxicity (Heparin, Nitro, Insulin, Cardizem)? @ -No Were any procedures done? @ -No Diagnosis/symptom? Acute, or Chronic, or Acute on Chronic? Uncomplicated (without systemic symptoms) or Complicated (systemic symptoms)? @ -. Respiratory failure secondary to COPD Side effects of treatment? @ -No Exacerbation, Progression, or Severe Exacerbation? @ -No Poses a threat to life or bodily function? How? (Chest pain, USA, ID, pneumonia, PE, COPD, DKA, ARF, appy, cholecystitis, CVA, Diverticulitis, Homicidal, Suicidal, threat to staff... and all critical care pts) @ -yes - Lab Data Result diagrams: 01/27/23 14:09 01/27/23 14:09 Lab Results 01/27/23 01/27/23 01/27/23 Range/Units 14:09 14:09 14:09 WBC 6.7 (3.8-10.6) k/uL RBC 4.46 (4.30-5.90) m/uL Hgb 13.9 (13.0-17.5) gm/dL Hct 39.4 (39.0-53.0) % MCV 88.4 (80.0-100.0) fL MCH 31.2 (25.0-35.0) pg MCHC 35.3 (31.0-37.0) g/dL RDW 13.2 (11.5-15.5) % Plt Count 217 (150-450) k/uL MPV 7.5 Neutrophils % 63 % Lymphocytes % 21 % Monocytes % 10 % Eosinophils % 2 % Basophils % 1 % Neutrophils # 4.3 (1.3-7.7) k/uL Lymphocytes # 1.4 (1.0-4.8) k/uL Monocytes # 0.7 (0-1.0) k/uL Eosinophils # 0.1 (0-0.7) k/uL Basophils # 0.0 (0-0.2) k/uL PT 10.3 (9.0-12.0) sec INR 1.0 (<1.2) APTT 23.1 (22.0-30.0) sec Sodium 137 (137-145) mmol/L Potassium 4.1 (3.5-5.1) mmol/L Chloride 101 (98-107) mmol/L Carbon Dioxide 24 (22-30) mmol/L Anion Gap 12 mmol/L BUN 13 (9-20) mg/dL Creatinine 1.01 (0.66-1.25) mg/dL Est GFR (CKD-EPI)AfAm >90 (>60 ml/min/1.73 sqM) Est GFR (CKD-EPI)NonAf 79 (>60 ml/min/1.73 sqM) Glucose 109 H (74-99) mg/dL Calcium 9.0 (8.4-10.2) mg/dL Magnesium 2.0 (1.6-2.3) mg/dL Total Bilirubin 0.9 (0.2-1.3) mg/dL AST 36 (17-59) U/L ALT 42 (4-49) U/L Alkaline Phosphatase 89 (38-126) U/L Total Protein 7.3 (6.3-8.2) g/dL Albumin 4.3 (3.5-5.0) g/dL Influenza Type A (PCR) (Not Detectd) Influenza Type B (PCR) (Not Detectd) RSV (PCR) (Not Detectd) SARS-CoV-2 (PCR) (Not Detectd) 01/27/23 Range/Units 14:09 WBC (3.8-10.6) k/uL RBC (4.30-5.90) m/uL Hgb (13.0-17.5) gm/dL Hct (39.0-53.0) % MCV (80.0-100.0) fL MCH (25.0-35.0) pg MCHC (31.0-37.0) g/dL RDW (11.5-15.5) % Plt Count (150-450) k/uL MPV Neutrophils % % Lymphocytes % % Monocytes % % Eosinophils % % Basophils % % Neutrophils # (1.3-7.7) k/uL Lymphocytes # (1.0-4.8) k/uL Monocytes # (0-1.0) k/uL Eosinophils # (0-0.7) k/uL Basophils # (0-0.2) k/uL PT (9.0-12.0) sec INR (<1.2) APTT (22.0-30.0) sec Sodium (137-145) mmol/L Potassium (3.5-5.1) mmol/L Chloride (98-107) mmol/L Carbon Dioxide (22-30) mmol/L Anion Gap mmol/L BUN (9-20) mg/dL Creatinine (0.66-1.25) mg/dL Est GFR (CKD-EPI)AfAm (>60 ml/min/1.73 sqM) Est GFR (CKD-EPI)NonAf (>60 ml/min/1.73 sqM) Glucose (74-99) mg/dL Calcium (8.4-10.2) mg/dL Magnesium (1.6-2.3) mg/dL Total Bilirubin (0.2-1.3) mg/dL AST (17-59) U/L ALT (4-49) U/L Alkaline Phosphatase (38-126) U/L Total Protein (6.3-8.2) g/dL Albumin (3.5-5.0) g/dL Influenza Type A (PCR) Not Detected (Not Detectd) Influenza Type B (PCR) Not Detected (Not Detectd) RSV (PCR) Not Detected (Not Detectd) SARS-CoV-2 (PCR) Not Detected (Not Detectd) Disposition Clinical Impression: COPD (chronic obstructive pulmonary disease) Disposition: ADMITTED IP TO THIS [facility] Condition: Serious Referrals: Yara Wong MD [Primary Care Provider] - 1-2 days Decision Time: 15:06
[2023-01-27 14:34] LABS: Partial Thromboplastin Time 23.1 sec (22.0-30.0); Prothrombin Time 10.3 sec (9.0-12.0)
[2023-01-27 14:41] LABS: ALT 42 U/L (4-49); AST 36 U/L (17-59); African American GFR (CKD) >90 (>60 ml/min/1.73 sqM); Albumin 4.3 g/dL (3.5-5.0); Alkaline Phosphatase 89 U/L (38-126); Anion Gap 12 mmol/L; Blood Urea Nitrogen 13 mg/dL (9-20); Carbon Dioxide 24 mmol/L (22-30); Chloride 101 mmol/L (98-107); Glucose 109 mg/dL (74-99); Non-African American GFR(CKD) 79 (>60 ml/min/1.73 sqM); Potassium 4.1 mmol/L (3.5-5.1); Sodium 137 mmol/L (137-145); Total Bilirubin 0.9 mg/dL (0.2-1.3); Total Protein 7.3 g/dL (6.3-8.2)
--- NOTE | 2023-01-27 14:44 | XR ---
EXAMINATION TYPE: XR chest 2V DATE OF EXAM: 01/27/2023 2:30 PM COMPARISON: Chest radiographs from 12/03/2022 TECHNIQUE: XR chest 2V Frontal and lateral views of the chest. CLINICAL INDICATION:Male, 62 years old with history of dyspnea; FINDINGS: Lungs/Pleura: There is flattening of the diaphragm with increased lucency of the lungs. No evidence o f pneumothorax, pleural effusion or focal consolidation. Pulmonary vascularity: Unremarkable. Heart/mediastinum: Cardiomediastinal silhouette is unremarkable. Electronic device projects over the heart. Musculoskeletal: No acute osseous pathology. IMPRESSION: 1. No acute cardiopulmonary disease process. 2. COPD changes.
[2023-01-27] MEDS ORDERED: ONDANSETRON 4 MG/2 ML VIAL IVP PRN (15:03)
[2023-01-27] MEDS ORDERED: NALOXONE 0.4 MG/ML 1 ML VIAL IVP PRN (15:03)
[2023-01-27] MEDS ORDERED: AZITHROMYCIN 500 MG TAB PO SCH (15:15)
[2023-01-27] MEDS: IPRATROPIUM-ALBUTEROL 3 ML NEB INHALATION SCH ×2 (15:50→21:14)
[2023-01-27] MEDS ORDERED: FAMOTIDINE 20 MG TAB PO PRN (15:53)
[2023-01-27] MEDS ORDERED: NITROGLYCERIN SL TABS 0.4 MG TAB SUBLINGUAL PRN (15:53)
[2023-01-27] MEDS ORDERED: BENZONATATE 100 MG CAP PO PRN (15:53)
[2023-01-27] MEDS ORDERED: ALBUTEROL NEBULIZED 2.5 MG/3 ML INHALATION PRN (15:53)
[2023-01-27] MEDS ORDERED: DEXTROSE 50% SYRINGE 50 ML IVP PRN ×2 (15:56)
[2023-01-27] MEDS: SODIUM CHLORIDE 0.9% 1,000 ML IV SCH (16:20)
--- NOTE | 2023-01-27 16:28 | XR ---
EXAMINATION TYPE: XR abdomen 2V DATE OF EXAM: 01/27/2023 4:08 PM INDICATION: Patient age:Male; 62 years old; Reason for study: abd distension; PHH. COMPARISON: None. TECHNIQUE: Two views of the abdomen were obtained. FINDINGS: The bowel gas pattern is nonspecific without dilated loops of small or large bowel. There i s no evidence for organomegaly or pneumoperitoneum. The osseous structures are intact. No abnormal calcifications are present. Fecal material and gas are demonstrated throughout the colon and rectum. IMPRESSION: Nonspecific bowel gas pattern without radiographic evidence for acute process.
--- NOTE | 2023-01-27 16:32 | HP ---
HISTORY AND PHYSICAL CHIEF COMPLAINT: Shortness of breath and as well as not eating. HISTORY OF PRESENT ILLNESS: This is a 62-year-old gentleman with a past medical history of multiple medical problems including COPD, complaining of increased shortness of breath for the past 4 days. The patient came to [facility] and admitted for further evaluation and treatment. The patient is also not eating and diminished p.o. intake for the last 4 days. The patient was sent to the hospital by PCP. There is no history of any fever, rigor, or chills. Chest x-ray showed pneumonia. PAST MEDICAL HISTORY: Reviewed includes COPD. Rest of the history and rest of the chart are also reviewed. HOME MEDICATIONS: Reviewed include nitroglycerin. Doses and rest of the medications are noted. ALLERGIES: Codeine. FAMILY HISTORY: History of myocardial infarction in the family. SOCIAL HISTORY: Previous history of smoking. REVIEW OF SYSTEMS: Fourteen-point review is negative except as mentioned earlier. PHYSICAL EXAMINATION: VITAL SIGNS: Pulse is 103, blood pressure 170/76, respirations 20. HEENT: Conjunctivae are normal. NECK: No jugular venous distention. CARDIOVASCULAR: S1 and S2 muffled. RESPIRATORY: Breath sounds diminished at the bases. Few scattered rhonchi and crackles. Expiratory wheezing. Breathing efforts are markedly increased. ABDOMEN: Soft. Mild diffuse distension. LEGS: No edema. No swelling. NERVOUS SYSTEM: No focal deficits. SKIN: No ulcers or rashes. JOINTS: No active deforming arthropathy. LABORATORY DATA: Noted. ASSESSMENT: 1. Chronic obstructive pulmonary disease acute exacerbation with acute purulent tracheobronchitis. 2. Abdominal distension and anorexia. 3. History of hypertension. 4. Hyperlipidemia. 5. History of COVID. 6. Multiple complex medical issues. RECOMMENDATIONS AND DISCUSSION: In this 62-year-old gentleman presented with multiple complex medical issues, we will monitor the patient closely and continue the current medications and symptomatic treatment. Otherwise, I would recommend to continue with bronchodilators, steroids, and Pulmonary consultation. Prognosis is guarded. Further recommendations to follow. I would also recommend abdominal flat plate to complete the workup. MMODL / IJN: [id number] /
[2023-01-27] MEDS: INSULIN ASPART (NovoLOG) 100 UNIT/ML VIAL SQ SCH ×2 (17:36→21:53)
[2023-01-27] MEDS: METOPROLOL TARTRATE 25 MG TAB PO SCH (17:49)
[2023-01-27] MEDS: methylPREDNISolone SOD SUCCI 125 MG/2 ML VIAL IV SCH (17:49)
[2023-01-27 20:45] LABS: Glucose,Whole Blood 175 mg/dL (70-110)
[2023-01-27] MEDS: BUDESONIDE 1 MG/2 ML NEBU INHALATION SCH (21:14)
[2023-01-27] MEDS: FORMOTEROL FUMARATE 20 MCG/2 ML NEBU INHALATION SCH (21:14)
[2023-01-27] MEDS: ATORVASTATIN 80 MG TAB PO SCH (21:52)
[2023-01-27] MEDS: PANTOPRAZOLE 40 MG/10 ML VIAL IVP SCH (21:53)
[2023-01-27] MEDS: HEPARIN SODIUM,PORCINE 5,000 UNIT/ML 1 ML VIAL SQ SCH (21:53)
[2023-01-28] MEDS: methylPREDNISolone SOD SUCCI 125 MG/2 ML VIAL IV SCH ×5 (00:20→23:27)
--- NOTE | 2023-01-28 01:34 | P.CNPUL ---
History of Present Illness Consult date: 01/28/23 Requesting physician: Karl Crowe Reason for consult: COPD Chief complaint: Shortness of breath, nonproductive cough and subjective fevers History of present illness: I am seeing this patient in new consultation today 01/28/2023 for acute COPD exacerbation. Patient is a 62-year-old white male with past medical history significant for severe COPD with an FEV1 40% of predicted, coronary artery disease with previous stenting of the RCA, hypertension, hyperlipidemia, TIA, GERD. He does follow with Dr. Dobbs in the office for his advanced COPD. He utilizes 2 L/m home oxygen mostly at bedtime, and a combination of Symbicort and Spiriva maintenance inhalers. Patient was directed to the emergency room by his primary care provider at Dr. Livingston's office yesterday afternoon complaining of shortness of breath, a persistent nonproductive cough, and subjective fevers at home. He states that he recently had COVID-19 approximately one month ago. He initially did improve, but subsequently started to experience upper respiratory infection like symptoms approximately 1 week ago. He's had a nagging persistent nonproductive cough, and shortness of breath that worsens with exertion. Patient is currently sitting up in bed, on 4 L/m nasal cannula, in no acute distress. He is quite wheezy and bronchospastic on evaluation. Chest x-ray shows no acute infiltrates or evidence of pneumonia. He is afebrile. CBC on arrival is unremarkable. No leukocytosis. BMP is also unremarkable. Normal saline is infusing at 75 mL per hour. He is negative for influenza, RSV, COVID-19. Patient is receiving a combination of bronchodilators, budesonide inhalation, formoterol inhalation, and IV Solu-Medrol. He's also been empirically started on a combination of Rocephin and Zithromax. He does have an event monitor, and reportedly follows with Dr. Fonseca at [facility]. He is unsure of why he has the event monitor, but admits to heart palpitations and "passing out" in the recent past. ECG shows normal sinus rhythm. Patient appears hemodynamically stable. Review of Systems REVIEW OF SYSTEMS: CONSTITUTIONAL: Denies any recent significant weight loss or weight gain. EYES: Denies change in vision. EARS, NOSE, MOUTH, THROAT: Denies headaches, denies sore throat. CARDIOVASCULAR: See HPI RESPIRATORY: See HPI GASTROINTESTINAL: Denies change in appetite, abdominal pain, nausea and vomiting, or diarrhea GENITOURINARY: Denies hematuria, denies infections. MUSKULOSKELETAL: Denies pain, denies swelling. INTEGUMENTARY: Denies rash, denies eczema. NEUROLOGICAL: Denies recent memory loss, no recent seizure activity. PSYCHIATRIC: Denies anxiety, denies depression. HEMATOLOGIC/LYMPHATIC: Denies anemia, denies enlarged lymph node Past Medical History Past Medical History: Chest Pain / Angina, COPD, CVA/TIA, GERD/Reflux, Hyperlipidemia, Hypertension, Myocardial Infarction (MD), Osteoarthritis (OA), Pneumonia Additional Past Medical History / Comment(s): COVID April 2022 and December 2022, multiple MIs, TIA, peripheral vision loss of left eye, white mass on brain in MRI, wears o2 at home 3L at night prn, heart monitor from cardiology office r/t tachycardia Last Myocardial Infarction Date:: 2020 History of Any Multi-Drug Resistant Organisms: None Reported Past Surgical History: Heart Catheterization With Stent Additional Past Surgical History / Comment(s): 2 cardiac stents Past Anesthesia/Blood Transfusion Reactions: No Reported Reaction Date of Last Stent Placement:: 2020 Past Psychological History: Anxiety Smoking Status: Former smoker Past Alcohol Use History: None Reported Past Drug Use History: None Reported - Past Family History Father Family Medical History: Myocardial Infarction (MD) Additional Family Medical History / Comment(s): from MD Brother(s) Family Medical History: Myocardial Infarction (MD) Additional Family Medical History / Comment(s): from MD Medications and Allergies Home Medications Medication Instructions Recorded Confirmed Type Atorvastatin Calcium [Lipitor] 80 mg PO HS 04/26/22 01/27/23 History FLUoxetine HCL [PROzac] 20 mg PO DAILY 04/26/22 01/27/23 History FLUoxetine HCL [PROzac] 40 mg PO DAILY 04/26/22 01/27/23 History Isosorbide Mononitrate ER [Imdur] 90 mg PO DAILY 04/26/22 01/27/23 History Metoprolol Tartrate [Lopressor] 25 mg PO BID-W/MEALS 04/26/22 01/27/23 History Nitroglycerin Sl Tabs [Nitrostat] 0.4 mg SUBLINGUAL Q5M PRN 04/26/22 01/27/23 History Pantoprazole Sodium 40 mg PO BID 04/26/22 01/27/23 History rOPINIRole HCL [Requip] 0.5 mg PO TID 04/26/22 01/27/23 History Cholecalciferol [Vitamin D3 (125 125 mcg PO DAILY 30 Days #30 tab 04/30/22 01/27/23 Rx Mcg = 5000 Iu)] Aspirin 81 mg PO DAILY #30 tab 05/14/22 01/27/23 Rx Benzonatate [Tessalon Perles] 100 mg PO BID PRN 12/03/22 01/27/23 History Famotidine [Pepcid] 20 mg PO HS PRN 12/03/22 01/27/23 History Losartan [Cozaar] 50 mg PO DAILY 12/03/22 01/27/23 History Albuterol Nebulized [Ventolin 2.5 mg INHALATION RT-QID PRN 01/27/23 01/27/23 History Nebulized] Budesonide-Formot 160-4.5 Mcg 2 puff INHALATION RT-BID 01/27/23 01/27/23 History [Symbicort 160-4.5 Mcg Inhaler] Allergies Allergy/AdvReac Type Severity Reaction Status Date / Time codeine Allergy Swelling Verified 01/27/23 15:32 Physical Exam Vitals: Vital Signs Temp Pulse Pulse Resp BP BP Pulse Ox 01/27/23 21:40 86 01/27/23 21:29 82 01/27/23 21:17 97 01/27/23 21:16 78 01/27/23 20:00 97.7 F 83 14 169/98 97 01/27/23 16:41 87 18 129/84 98 01/27/23 16:15 80 20 129/84 97 01/27/23 14:56 92 01/27/23 14:46 90 01/27/23 14:35 93 01/27/23 13:48 98.2 F 103 H 28 H 176/76 97 Intake and Output 01/27/23 01/27/23 01/28/23 14:59 22:59 06:59 Other: Voiding Method Toilet # Voids 1 Weight 81.647 kg 81.647 kg GENERAL EXAM: Alert, 62-year-old white male, comfortable in no apparent distress. HEAD: Normocephalic and atraumatic EYES: Normal reaction of pupils, equal size. NOSE: Clear with pink turbinates. THROAT: No erythema or exudates. NECK: No masses, no JVD. CHEST: No chest wall deformity. There is a Cardiac event monitor LUNGS: Equal air entry with rhonchi and expiratory wheezing throughout. no crackles or focal dullness. On 4 L/m nasal cannula. No conversational dyspnea or accessory muscle use.. CVS: S1 and S2 normal with no audible murmur, regular rhythm. No extra heart sounds ABDOMEN: No hepatosplenomegaly, active bowel sounds, no guarding or rigidity. SPINE: No scoliosis or deformity SKIN: No rashes CENTRAL NERVOUS SYSTEM: No focal deficits, tone is normal in all 4 extremities. EXTREMITIES: There is no peripheral edema, clubbing, or cyanosis. Peripheral pulses are intact. Results - Laboratory Findings CBC and BMP: 01/27/23 14:09 01/27/23 14:09 PT/INR, D-dimer PT 10.3 sec (9.0-12.0) 01/27/23 14:09 INR 1.0 (<1.2) 01/27/23 14:09 Abnormal lab findings: Abnormal Labs 01/27/23 01/27/23 14:09 20:44 Glucose 109 H POC Glucose (mg/dL) 175 H - Diagnostic Findings Chest x-ray: image reviewed Assessment and Plan Assessment: Acute COPD exacerbation related to acute bronchitis. Chest x-ray shows no pulmonary infiltrates or evidence of pneumonia. Negative for influenza, RSV, COVID-19. Acute on chronic hypoxic respiratory failure secondary to severe COPD with a ba seline FEV1 of 40% of predicted. Normally utilizes 2 L/m home oxygen. Coronary artery disease, with history of previous stent to the RCA Essential hypertension Hyperlipidemia History of TIA Gastroesophageal reflux disease History of depression Ex-smoker Plan: Patient's medications, labs, chest x-ray reviewed Continue supplemental oxygen and wean FiO2 as appropriate Continue combination of bronchodilators, formoterol inhalation, budesonide inhalation, and IV Solu-Medrol. Currently on empiric antibiotics, we will check procalcitonin level and manage antibiotics accordingly Continue Tessalon Perles as antitussive We will continue to follow I have personally seen and examined the patient, performed the documentation and the assessment and plan as written. Number of minutes spent on the visit:20 Time with Patient: Greater than 30
[2023-01-28] MEDS: SODIUM CHLORIDE 0.9% 1,000 ML IV SCH ×2 (05:54→21:28)
[2023-01-28 07:57] LABS: Glucose,Whole Blood 146 mg/dL (70-110)
[2023-01-28] MEDS: INSULIN ASPART (NovoLOG) 100 UNIT/ML VIAL SQ SCH ×4 (08:04→21:24)
[2023-01-28] MEDS: IPRATROPIUM-ALBUTEROL 3 ML NEB INHALATION SCH ×4 (08:15→20:15)
[2023-01-28] MEDS: BUDESONIDE 1 MG/2 ML NEBU INHALATION SCH ×2 (08:15→20:15)
[2023-01-28] MEDS: FORMOTEROL FUMARATE 20 MCG/2 ML NEBU INHALATION SCH ×2 (08:15→20:15)
[2023-01-28] MEDS ORDERED: predniSONE 20 MG TAB PO SCH (09:00)
[2023-01-28] MEDS: HEPARIN SODIUM,PORCINE 5,000 UNIT/ML 1 ML VIAL SQ SCH ×2 (09:31→21:25)
[2023-01-28] MEDS: PANTOPRAZOLE 40 MG/10 ML VIAL IVP SCH ×2 (09:31→21:24)
[2023-01-28] MEDS: FLUoxetine HCL 20 MG CAP PO SCH ×2 (09:31→09:32)
[2023-01-28] MEDS: ASPIRIN 81 MG PO SCH (09:31)
[2023-01-28] MEDS: METOPROLOL TARTRATE 25 MG TAB PO SCH ×2 (09:32→17:00)
[2023-01-28] MEDS: CHOLECALCIFEROL 125 MCG (5000 IU) TABLET PO SCH (09:32)
[2023-01-28] MEDS: ISOSORBIDE MONONITRATE ER 30 MG TAB.ER.24H PO SCH (09:32)
[2023-01-28] MEDS: LOSARTAN 50 MG TAB PO SCH (09:32)
[2023-01-28] MEDS: DOXYCYCLINE 100 MG CAP PO SCH ×2 (09:32→21:24)
[2023-01-28 12:42] LABS: Glucose,Whole Blood 234 mg/dL (70-110)
--- NOTE | 2023-01-28 14:14 | PN ---
PROGRESS NOTE DATE OF SERVICE: 01/28/2023 SUBJECTIVE: This is a 62-year-old gentleman who presented with COPD acute exacerbation, is being closely monitored. No chest pain, no palpitations, no fever. OBJECTIVE: VITAL SIGNS: Pulse is 87, blood pressure 150/72, respirations 18. CHEST: Bilateral scattered rhonchi and expiratory wheezing. ABDOMEN: Soft. NERVOUS SYSTEM: Nonfocal. LABS: Reviewed. ASSESSMENT: 1. Chronic obstructive pulmonary disease acute exacerbation with acute purulent tracheobronchitis. 2. Abdominal distention, anorexia, improved, possible acute gastritis. 3. History of hypertension. 4. Hyperlipidemia. 5. History of COVID. 6. Multiple complex medical issues. RECOMMENDATIONS: Recommended to continue current management, continue symptomatic treatment. Continue bronchodilators, steroids, empiric antibiotics. Closely follow with Dr. Huntley. Guarded prognosis. Further recommendations to follow. MMODL / IJN: [id number] /
[2023-01-28 14:36] VITALS: BMI 29.0
[2023-01-28 17:32] LABS: Glucose,Whole Blood 224 mg/dL (70-110)
[2023-01-28 20:20] LABS: Glucose,Whole Blood 210 mg/dL (70-110)
[2023-01-28] MEDS: ATORVASTATIN 80 MG TAB PO SCH (21:24)
[2023-01-29] MEDS: methylPREDNISolone SOD SUCCI 125 MG/2 ML VIAL IV SCH ×4 (06:29→23:39)
[2023-01-29 07:09] LABS: Glucose,Whole Blood 177 mg/dL (70-110)
[2023-01-29] MEDS: BUDESONIDE 1 MG/2 ML NEBU INHALATION SCH ×2 (07:22→20:51)
[2023-01-29] MEDS: IPRATROPIUM-ALBUTEROL 3 ML NEB INHALATION SCH ×4 (07:22→20:51)
[2023-01-29] MEDS: FORMOTEROL FUMARATE 20 MCG/2 ML NEBU INHALATION SCH ×2 (07:22→20:51)
[2023-01-29] MEDS: HEPARIN SODIUM,PORCINE 5,000 UNIT/ML 1 ML VIAL SQ SCH ×2 (07:56→21:02)
[2023-01-29] MEDS: INSULIN ASPART (NovoLOG) 100 UNIT/ML VIAL SQ SCH ×4 (07:56→20:59)
[2023-01-29] MEDS: ASPIRIN 81 MG PO SCH (07:57)
[2023-01-29] MEDS: METOPROLOL TARTRATE 25 MG TAB PO SCH ×2 (07:57→16:53)
[2023-01-29] MEDS: FLUoxetine HCL 20 MG CAP PO SCH ×2 (07:57)
[2023-01-29] MEDS: LOSARTAN 50 MG TAB PO SCH (07:57)
[2023-01-29] MEDS: CHOLECALCIFEROL 125 MCG (5000 IU) TABLET PO SCH (07:57)
[2023-01-29] MEDS: DOXYCYCLINE 100 MG CAP PO SCH ×2 (07:58→20:59)
[2023-01-29] MEDS: ISOSORBIDE MONONITRATE ER 30 MG TAB.ER.24H PO SCH (07:58)
[2023-01-29] MEDS: SODIUM CHLORIDE 0.9% 1,000 ML IV SCH (08:22)
[2023-01-29] MEDS: PANTOPRAZOLE 40 MG/10 ML VIAL IVP SCH ×2 (08:23→20:59)
--- NOTE | 2023-01-29 11:49 | P.PN ---
Subjective Progress Note Date: 01/29/23 I am seeing this patient in new consultation today 01/28/2023 for acute COPD exacerbation. Patient is a 62-year-old white male with past medical history significant for severe COPD with an FEV1 40% of predicted, coronary artery disease with previous stenting of the RCA, hypertension, hyperlipidemia, TIA, GERD. He does follow with Dr. Dobbs in the office for his advanced COPD. He utilizes 2 L/m home oxygen mostly at bedtime, and a combination of Symbicort and Spiriva maintenance inhalers. Patient was directed to the emergency room by his primary care provider at Dr. Livingston's office yesterday afternoon complaining of shortness of breath, a persistent nonproductive cough, and subjective fevers at home. He states that he recently had COVID-19 approximately one month ago. He initially did improve, but subsequently started to experience upper respiratory infection like symptoms approximately 1 week ago. He's had a nagging persistent nonproductive cough, and shortness of breath that worsens with exertion. Patient is currently sitting up in bed, on 4 L/m nasal cannula, in no acute distress. H e is quite wheezy and bronchospastic on evaluation. Chest x-ray shows no acute infiltrates or evidence of pneumonia. He is afebrile. CBC on arrival is unremarkable. No leukocytosis. BMP is also unremarkable. Normal saline is infusing at 75 mL per hour. He is negative for influenza, RSV, COVID-19. Patient is receiving a combination of bronchodilators, budesonide inhalation, formoterol inhalation, and IV Solu-Medrol. He's also been empirically started on a combination of Rocephin and Zithromax. He does have an event monitor, and reportedly follows with Dr. Fonseca at [facility]. He is unsure of why he has the event monitor, but admits to heart palpitations and "passing out" in the recent past. ECG shows normal sinus rhythm. Patient appears hemodynamically stable. The patient is seen today 01/29/2023 in follow-up on the regular medical floor. He is currently sitting up in bed. Awake and alert in no acute distress. Maintaining O2 saturations in the 90s on 3 L/m per nasal cannula. Afebrile. Hemodynamically stable. Doing about the same today as compared to yesterday. Still somewhat bronchospastic and wheezing. He is continued on DuoNeb inhalations, Pulmicort and Perforomist inhalations, IV Solu-Medrol. Empiric antibiotics in the form of doxycycline. Blood cultures reveal no growth. Blood glucose 177. Objective - Vital Signs Vital signs: Vital Signs Temp 97.7 F 01/29/23 07:09 Pulse 82 01/29/23 10:56 Resp 19 01/29/23 07:09 BP 119/64 01/29/23 07:09 Pulse Ox 97 01/29/23 07:23 FiO2 Intake & Output 01/28/23 01/29/23 01/29/23 18:59 06:59 18:59 Intake Total 900 Balance 900 Weight 81.647 kg Intake: Intake, IV Titration 900 Amount Sodium Chloride 0.9% 1, 900 000 ml @ 75 mls/hr IV . [id number] [facility] Rx#:[id number] Other: Voiding Method Toilet Toilet - Exam GENERAL EXAM: Alert, pleasant 62-year-old male, on 3 L nasal cannula, comfortable in no apparent distress. HEAD: Normocephalic. EYES: Normal reaction of pupils, equal size. NOSE: Clear with pink turbinates. THROAT: No erythema or exudates. NECK: No masses, no JVD. CHEST: No chest wall deformity. LUNGS: Equal air entry with bilateral end expiratory wheeze, diminished. CVS: S1 and S2 normal with no audible murmur, regular rhythm. ABDOMEN: No hepatosplenomegaly, normal bowel sounds, no guarding or rigidity. SPINE: No scoliosis or deformity SKIN: No rashes CENTRAL NERVOUS SYSTEM: No focal deficits, tone is normal in all 4 extremities. EXTREMITIES: There is no peripheral edema. No clubbing, no cyanosis. Peripheral pulses are intact. - Labs CBC & Chem 7: 01/27/23 14:09 01/27/23 14:09 Labs: Abnormal Lab Results - Last 24 Hours (Table) 01/28/23 01/28/23 01/28/23 Range/Units 12:40 17:31 20:19 POC Glucose (mg/dL) 234 H 224 H 210 H (70-110) mg/dL 01/29/23 Range/Units 07:08 POC Glucose (mg/dL) 177 H (70-110) mg/dL Microbiology - Last 24 Hours (Table) 01/27/23 16:23 Blood Culture - Preliminary Blood 01/27/23 16:08 Blood Culture - Preliminary Blood Assessment and Plan Assessment: Acute COPD exacerbation related to acute bronchitis. Chest x-ray shows no pulmonary infiltrates or evidence of pneumonia. Negative for influenza, RSV, COVID-19 Acute on chronic hypoxic respiratory failure secondary to severe COPD with a baseline FEV1 of 40% of predicted. Normally utilizes 2 L/m home oxygen Coronary artery disease, with history of previous stent to the RCA Essential hypertension Hyperlipidemia History of TIA Gastroesophageal reflux disease History of depression Ex-smoker Plan: The patient was seen and evaluated Medications and labs reviewed Improved but not quite back to baseline Continue the current treatment plan Titrate the FiO2 as tolerated Increase his activity as tolerated We will continue to follow I have personally seen and examined the patient, performed the documentation and the assessment and plan as written. Number of minutes spent on the visit: 10.
[2023-01-29 12:01] LABS: Glucose,Whole Blood 159 mg/dL (70-110)
--- NOTE | 2023-01-29 14:47 | P.PN ---
Subjective Progress Note Date: 01/29/23 This is a 62-year-old male who was recently admitted with increased shortness of breath with COPD exacerbation. Pulmonary following and patient is maintained on IV steroids along with breathing inhalational treatments [id number] and will continue. Patient continues to report shortness of breath with significant wheezing and bronchospastic with coughing not quite back to baseline. Patient chronically wears oxygen in the outpatient setting as follows with pulmonary outpatient. Patient is currently afebrile with no reported chest pain or palpitations. Patient is being followed outpatient with an event monitor currently with Dr. Fonseca's office outpatient. Encouraged increased activity as tolerated and will follow-up with chest x-ray in a.m. Review of systems: Constitutional: reports of fatigue, no reports of fever, or chills Cardiovascular: No reports of chest pain or palpitations Respiratory:reports of continued shortness of breath and cough GI: No reports of nausea, no reports of vomiting, no diarrhea : No reports of dysuria or retention Neurovascular: No reports of generalized weakness All medications have been reviewed PHYSICAL EXAMINATION: GENERAL: The patient is alert and oriented x4, Well developed, well nourished. HEENT: Pupils are round and equally reacting to light. EOMI. no scleral icterus. No conjunctival pallor. Normocephalic, atraumatic. No pharyngeal erythema. No thyromegaly. CARDIOVASCULAR: S1 and S2 muffled PULMONARY: diminished breath sounds bilaterally with expiratory wheezing and coarse scattered rhonchi noted. ABDOMEN: soft. Nontender on exam. obese. non-distended, normoactive bowel sounds. No palpable organomegaly. MUSCULOSKELETAL: No joint swelling or deformity. EXTREMITIES: No cyanosis, clubbing, or pedal edema. NEUROLOGICAL: Gross neurological examination did not reveal any focal deficits. SKIN: No rashes. Assessment: Shortness of breath with COPD exacerbation with acute purulent tracheobronchitis Acute on chronic hypoxic respiratory failure, wears oxygen at 3 L outpatient Abdominal distention, possible acute gastritis, improved History of hypertension Hyperlipidemia Anxiety history History of Covid History of CVA/TIA Angina history History of myocardial infarction GI prophylaxis DVT prophylaxis Full code Plan: Patient is continued on breathing inhalational treatments along with IV steroids with pulmonary following closely. Patient to continue on oral doxycycline and will likely need steroid taper on discharge Patient chronically wears 3 L via nasal cannula outpatient and will continue Encouraged increased activity as tolerated Will follow-up with chest x-ray in the a.m. Continue to monitor Accu-Cheks before meals and at bedtime and will use sliding scale Will discuss with pulmonary about possible discharge planning in the next 24-48 hours Due to multiple complex medical issues, prognosis is guarded The impression and plan of care has been dictated by Geovanna Vidal, nurse practitioner as directed. Dr. Aubrey MD I have performed a history and examination and MDM of this patient, discussed the same with the dictator, and agree with the dictator's assessment and plan as written ,documented as a scribe. Based on total visit time, I have performed more than 50% of the visit. Any additional findings or plans will be noted. Objective - Vital Signs Vital signs: Vital Signs Temp 97.7 F 01/29/23 07:09 Pulse 82 01/29/23 10:44 Resp 19 01/29/23 07:09 BP 119/64 01/29/23 07:09 Pulse Ox 97 01/29/23 07:23 FiO2 Intake & Output 01/28/23 01/29/23 01/29/23 18:59 06:59 18:59 Intake Total 900 Balance 900 Weight 81.647 kg Intake: Intake, IV Titration 900 Amount Sodium Chloride 0.9% 1, 900 000 ml @ 75 mls/hr IV . [id number] [facility] Rx#:[id number] Other: Voiding Method Toilet Toilet - Labs CBC & Chem 7: 01/27/23 14:09 01/27/23 14:09 Labs: Abnormal Lab Results - Last 24 Hours (Table) 01/28/23 01/28/23 01/28/23 Range/Units 12:40 17:31 20:19 POC Glucose (mg/dL) 234 H 224 H 210 H (70-110) mg/dL 01/29/23 Range/Units 07:08 POC Glucose (mg/dL) 177 H (70-110) mg/dL Microbiology - Last 24 Hours (Table) 01/27/23 16:23 Blood Culture - Preliminary Blood 01/27/23 16:08 Blood Culture - Preliminary Blood
[2023-01-29 17:05] LABS: Glucose,Whole Blood 225 mg/dL (70-110)
[2023-01-29 19:46] VITALS: RESP 20
[2023-01-29 20:25] LABS: Glucose,Whole Blood 231 mg/dL (70-110)
[2023-01-29] MEDS: ATORVASTATIN 80 MG TAB PO SCH (20:59)
[2023-01-30] MEDS: methylPREDNISolone SOD SUCCI 125 MG/2 ML VIAL IV SCH ×2 (05:43→11:21)
[2023-01-30 07:54] LABS: Glucose,Whole Blood 163 mg/dL (70-110)
[2023-01-30] MEDS: ISOSORBIDE MONONITRATE ER 30 MG TAB.ER.24H PO SCH (08:23)
[2023-01-30] MEDS: CHOLECALCIFEROL 125 MCG (5000 IU) TABLET PO SCH (08:23)
[2023-01-30] MEDS: LOSARTAN 50 MG TAB PO SCH (08:24)
[2023-01-30] MEDS: FLUoxetine HCL 20 MG CAP PO SCH ×2 (08:25→08:31)
[2023-01-30 08:26] VITALS: BP 133/68; TEMP 97.9
[2023-01-30] MEDS: HEPARIN SODIUM,PORCINE 5,000 UNIT/ML 1 ML VIAL SQ SCH (08:32)
[2023-01-30] MEDS: PANTOPRAZOLE 40 MG/10 ML VIAL IVP SCH (08:32)
[2023-01-30] MEDS: ASPIRIN 81 MG PO SCH (08:32)
[2023-01-30] MEDS: METOPROLOL TARTRATE 25 MG TAB PO SCH (08:32)
[2023-01-30] MEDS: INSULIN ASPART (NovoLOG) 100 UNIT/ML VIAL SQ SCH ×2 (08:33→13:10)
[2023-01-30] MEDS: DOXYCYCLINE 100 MG CAP PO SCH (08:33)
[2023-01-30] MEDS: FORMOTEROL FUMARATE 20 MCG/2 ML NEBU INHALATION SCH (09:23)
[2023-01-30] MEDS: IPRATROPIUM-ALBUTEROL 3 ML NEB INHALATION SCH ×2 (09:23→12:13)
[2023-01-30] MEDS: BUDESONIDE 1 MG/2 ML NEBU INHALATION SCH (09:23)
--- NOTE | 2023-01-30 09:47 | P.PN ---
Subjective Progress Note Date: 01/30/23 I am seeing this patient in new consultation today 01/28/2023 for acute COPD exacerbation. Patient is a 62-year-old white male with past medical history significant for severe COPD with an FEV1 40% of predicted, coronary artery disease with previous stenting of the RCA, hypertension, hyperlipidemia, TIA, GERD. He does follow with Dr. Dobbs in the office for his advanced COPD. He utilizes 2 L/m home oxygen mostly at bedtime, and a combination of Symbicort and Spiriva maintenance inhalers. Patient was directed to the emergency room by his primary care provider at Dr. Livingston's office yesterday afternoon complaining of shortness of breath, a persistent nonproductive cough, and subjective fevers at home. He states that he recently had COVID-19 approximately one month ago. He initially did improve, but subsequently started to experience upper respiratory infection like symptoms approximately 1 week ago. He's had a nagging persistent nonproductive cough, and shortness of breath that worsens with exertion. Patient is currently sitting up in bed, on 4 L/m nasal cannula, in no acute distress. H e is quite wheezy and bronchospastic on evaluation. Chest x-ray shows no acute infiltrates or evidence of pneumonia. He is afebrile. CBC on arrival is unremarkable. No leukocytosis. BMP is also unremarkable. Normal saline is infusing at 75 mL per hour. He is negative for influenza, RSV, COVID-19. Patient is receiving a combination of bronchodilators, budesonide inhalation, formoterol inhalation, and IV Solu-Medrol. He's also been empirically started on a combination of Rocephin and Zithromax. He does have an event monitor, and reportedly follows with Dr. Fonseca at [facility]. He is unsure of why he has the event monitor, but admits to heart palpitations and "passing out" in the recent past. ECG shows normal sinus rhythm. Patient appears hemodynamically stable. The patient is seen today 01/29/2023 in follow-up on the regular medical floor. He is currently sitting up in bed. Awake and alert in no acute distress. Maintaining O2 saturations in the 90s on 3 L/m per nasal cannula. Afebrile. Hemodynamically stable. Doing about the same today as compared to yesterday. Still somewhat bronchospastic and wheezing. He is continued on DuoNeb inhalations, Pulmicort and Perforomist inhalations, IV Solu-Medrol. Empiric antibiotics in the form of doxycycline. Blood cultures reveal no growth. Blood glucose 177. The patient is seen today 01/30/2023 in follow-up on the regular medical floor. He is awake and alert in no acute distress. Feeling better and nearly back to his baseline. He is continued on DuoNeb inhalations, Pulmicort and Perforomist inhalations, Solu-Medrol. Empiric antibiotics for doxycycline. Maintaining good O2 saturations in the 90s on 3 L/m per nasal cannula. He does have home oxygen. Blood sugar 163. Objective - Vital Signs Vital signs: Vital Signs Temp 97.9 F 01/30/23 07:51 Pulse 74 01/30/23 09:24 Resp 20 01/30/23 07:51 BP 133/68 01/30/23 07:51 Pulse Ox 92 L 01/30/23 09:24 FiO2 Intake & Output 01/29/23 01/30/23 01/30/23 18:59 06:59 18:59 Intake Total 480 Balance 480 Intake: Intake, IV Titration 240 Amount Sodium Chloride 0.9% 1, 240 000 ml @ 20 mls/hr IV . Q24H [facility] Rx#:[id number] Oral 240 Other: Voiding Method Toilet Toilet # Voids 1 - Exam GENERAL EXAM: Alert, oriented 62-year-old male, sitting up in bed, on 3 L nasal cannula, comfortable in no apparent distress. HEAD: Normocephalic. EYES: Normal reaction of pupils, equal size. NOSE: Clear with pink turbinates. THROAT: No erythema or exudates. NECK: No masses, no JVD. CHEST: No chest wall deformity. LUNGS: Equal air entry with bilateral end expiratory wheeze, diminished. CVS: S1 and S2 normal with no audible murmur, regular rhythm. ABDOMEN: No hepatosplenomegaly, normal bowel sounds, no guarding or rigidity. SPINE: No scoliosis or deformity SKIN: No rashes CENTRAL NERVOUS SYSTEM: No focal deficits, tone is normal in all 4 extremities. EXTREMITIES: There is no peripheral edema. No clubbing, no cyanosis. Peripheral pulses are intact. - Labs CBC & Chem 7: 01/27/23 14:09 01/27/23 14:09 Labs: Abnormal Lab Results - Last 24 Hours (Table) 01/29/23 01/29/23 01/29/23 Range/Units 12:00 17:04 20:23 POC Glucose (mg/dL) 159 H 225 H 231 H (70-110) mg/dL 01/30/23 Range/Units 07:53 POC Glucose (mg/dL) 163 H (70-110) mg/dL Microbiology - Last 24 Hours (Table) 01/27/23 16:23 Blood Culture - Preliminary Blood 01/27/23 16:08 Blood Culture - Preliminary Blood Assessment and Plan Assessment: Acute COPD exacerbation related to acute bronchitis. Chest x-ray shows no pulmonary infiltrates or evidence of pneumonia. Negative for influenza, RSV, COVID-19 Acute on chronic hypoxic respiratory failure secondary to severe COPD with a baseline FEV1 of 40% of predicted. Normally utilizes 2 L/m home oxygen Coronary artery disease, with history of previous stent to the RCA Essential hypertension Hyperlipidemia History of TIA Gastroesophageal reflux disease History of depression Ex-smoker Plan: The patient was seen and evaluated Medications reviewed Cleared for discharge from the pulmonary standpoint Complete a course of doxycycline Complete a prednisone taper starting at 40 mg daily for 4 days Continue his home pulmonary medications and oxygen Follow-up in our office in 1 week I have personally seen and examined the patient, performed the documentation and the assessment and plan as written. Number of minutes spent on the visit: 10.
[2023-01-30 11:52] LABS: Glucose,Whole Blood 200 mg/dL (70-110)
[2023-01-30 12:22] VITALS: PULSE 82
--- NOTE | 2023-02-02 16:06 | P.DS ---
Providers Date of admission: 01/29/23 07:57 Expected date of discharge: 01/30/23 Attending physician: Jamin Burgos Consults: 01/27/23 15:06 Consult Physician Routine Consulting Provider: Peyton Grace Consult Reason/Comments: copd Do you want consulting provider notified?: Yes Primary care physician: Yara Wong Hospital Course: Final diagnosis Shortness of breath with COPD exacerbation with acute purulent tracheobronchitis Acute on chronic hypoxic respiratory failure, wears oxygen at 3 L outpatient Abdominal distention, possible acute gastritis, improved History of hypertension Hyperlipidemia Anxiety history History of Covid History of CVA/TIA Angina history History of myocardial infarction GI prophylaxis DVT prophylaxis Full code Discharge disposition Patient is being discharged in a stable condition with guarded prognosis to home. Patient will follow-up with Dr. Wong in the outpatient setting upon discharge. Patient is to continue with steroid taper medications as prescribed below and close outpatient follow-up with pulmonary in one week as scheduled. Total time taken is greater than 35 minutes. Hospital course This is a 62-year-old male who was recently admitted with increased shortness of breath, COPD exacerbation with acute purulent tracheobronchitis. Patient chronically wears oxygen outpatient although requiring more oxygen over the last and feeling more short of breath and fatigue. Patient was evaluated by pulmonary maintained on breathing treatments along with steroids and started on doxycycline. Patient showing some improvement although continues to be extremely wheezy and bronchospastic although patient is persistent on going home. Patient has been cleared by consultations for discharge and close outpatient follow-up within the next week. Please refer to consultation notes for further HPI. Currently no reports of chest pain, no worsening shortness of breath, or palpitations. Patient is afebrile. No reports of nausea or vomiting and patient is tolerating diet. Patient will be discharged home today. Guarded prognosis and high risk for readmissions given patient's significant comorbidities and extensive COPD. Physical exam: Gen: This is a 62-year-old male who is awake, alert and oriented 3, well- developed, well-nourished HEENT: Head is atraumatic, normocephalic. Pupils equal, round. Sclerae is ani cteric. NECK: Supple. No JVD. No lymphadenopathy. No thyromegaly. LUNGS: Diminished breath sounds bilaterally with some scattered expiratory wheezing and rhonchi noted throughout. No intercostal retractions. HEART: Regular rate and rhythm. No murmur. ABDOMEN: Soft. Obese. Bowel sounds are present. No masses. No tenderness. EXTREMITIES: No pedal edema. No calf tenderness. NEUROLOGICAL: Patient is awake, alert and oriented x3. Cranial nerves 2 through 12 are grossly intact. Please refer to medication reconciliation sheet for a list of medications. The impression and plan of care has been dictated by Geovanna Vidal, Nurse Practitioner as directed. Dr. Aubrey MD I have performed a history and examination and MDM of this patient, discussed the same with the dictator, and agree with the dictator's assessment and plan as written ,documented as a scribe. Based on total visit time, I have performed more than 50% of the visit. Patient Condition at Discharge: Fair Plan - Discharge Summary Discharge Rx Participant: Yes New Discharge Prescriptions: New Ipratropium-Albuterol Nebulize [Duoneb 0.5 mg-3 mg/3 ml Soln] 3 ml INHALATION RT-QID 30 Days #120 each predniSONE 10 mg PO DIRECTED #50 tab Budesonide [Pulmicort] 0.5 mg INHALATION DAILY #30 ml Doxycycline [Vibramycin] 100 mg PO BID 10 Days #20 cap Continue Isosorbide Mononitrate ER [Imdur] 90 mg PO DAILY FLUoxetine HCL [PROzac] 40 mg PO DAILY Nitroglycerin Sl Tabs [Nitrostat] 0.4 mg SUBLINGUAL Q5M PRN PRN Reason: Chest Pain rOPINIRole HCL [Requip] 0.5 mg PO TID Losartan [Cozaar] 50 mg PO DAILY Benzonatate [Tessalon Perles] 100 mg PO BID PRN PRN Reason: Cough Albuterol Nebulized [Ventolin Nebulized] 2.5 mg INHALATION RT-QID PRN PRN Reason: Shortness Of Breath Metoprolol Tartrate [Lopressor] 25 mg PO BID-W/MEALS Pantoprazole Sodium 40 mg PO BID Atorvastatin Calcium [Lipitor] 80 mg PO HS FLUoxetine HCL [PROzac] 20 mg PO DAILY Cholecalciferol [Vitamin D3 (125 Mcg = 5000 Iu)] 125 mcg PO DAILY 30 Days #30 tab Aspirin 81 mg PO DAILY #30 tab Famotidine [Pepcid] 20 mg PO HS PRN PRN Reason: Gi Upset Budesonide-Formot 160-4.5 Mcg [Symbicort 160-4.5 Mcg Inhaler] 2 puff INHALATION RT-BID Discharge Medication List Atorvastatin Calcium [Lipitor] 80 mg PO HS 04/26/22 [History] FLUoxetine HCL [PROzac] 20 mg PO DAILY 04/26/22 [History] FLUoxetine HCL [PROzac] 40 mg PO DAILY 04/26/22 [History] Isosorbide Mononitrate ER [Imdur] 90 mg PO DAILY 04/26/22 [History] Metoprolol Tartrate [Lopressor] 25 mg PO BID-W/MEALS 04/26/22 [History] Nitroglycerin Sl Tabs [Nitrostat] 0.4 mg SUBLINGUAL Q5M PRN 04/26/22 [History] Pantoprazole Sodium 40 mg PO BID 04/26/22 [History] rOPINIRole HCL [Requip] 0.5 mg PO TID 04/26/22 [History] Cholecalciferol [Vitamin D3 (125 Mcg = 5000 Iu)] 125 mcg PO DAILY 30 Days #30 tab 04/30/22 [Rx] Aspirin 81 mg PO DAILY #30 tab 05/14/22 [Rx] Benzonatate [Tessalon Perles] 100 mg PO BID PRN 12/03/22 [History] Famotidine [Pepcid] 20 mg PO HS PRN 12/03/22 [History] Losartan [Cozaar] 50 mg PO DAILY 12/03/22 [History] Albuterol Nebulized [Ventolin Nebulized] 2.5 mg INHALATION RT-QID PRN 01/27/23 [History] Budesonide-Formot 160-4.5 Mcg [Symbicort 160-4.5 Mcg Inhaler] 2 puff INHALATION RT-BID 01/27/23 [History] Budesonide [Pulmicort] 0.5 mg INHALATION DAILY #30 ml 01/30/23 [Rx] Doxycycline [Vibramycin] 100 mg PO BID 10 Days #20 cap 01/30/23 [Rx] Ipratropium-Albuterol Nebulize [Duoneb 0.5 mg-3 mg/3 ml Soln] 3 ml INHALATION RT-QID 30 Days #120 each 01/30/23 [Rx] predniSONE 10 mg PO DIRECTED #50 tab 01/30/23 [Rx] Follow up Appointment(s)/Referral(s): Peyton Grace MD [STAFF PHYSICIAN] - 03/02/23 2:30 pm (appt with Dr. Dobbs) [facility], [NON-STAFF] - 1 Week Yara Wong MD [Primary Care Provider] - 1-2 days (please call to schedule a hospital follow up appointment. [phone]) Ambulatory/Diagnostic Orders: Complete Blood Count w/diff [LAB.AMB] Time Frame: 3 Days, Location: None Selected Patient Instructions/Handouts: Doxycycline (By mouth), Prednisone (By mouth), Budesonide (By breathing), Ipratropium/Albuterol (By breathing), Using Oxygen at Home (DC), COPD (Chronic Obstructive Pulmonary Disease) (DC) Activity/Diet/Wound Care/Special Instructions: Activity Limited until follow-up Follow-up with primary care provider this week Follow-up with pulmonary in one week Continue medications as prescribed Discharge Disposition: HOME WITH HOME HEALTH SERVICES
== END 2023-01-30 13:26 | disposition home health service (06) | DRG 190 ==
LOC: EC 13:44 → 5NMEDONC 15:03 → OBSVTOIN 01-29 07:57
PROVIDERS: ADMIT Hospitalist; ATTEND Hospitalist
DX: J44.1 Chronic obstructive pulmonary disease with (acute) exacerbation (principal); J96.21 Acute and chronic respiratory failure with hypoxia; I25.10 Atherosclerotic heart disease of native coronary artery without angina pectoris; K21.9 Gastro-esophageal reflux disease without esophagitis; I10 Essential (primary) hypertension; H54.62 Unqualified visual loss, left eye, normal vision right eye; F41.9 Anxiety disorder, unspecified; E78.5 Hyperlipidemia, unspecified; Z20.822 Contact with and (suspected) exposure to COVID-19; Z79.51 Long term (current) use of inhaled steroids; Z79.52 Long term (current) use of systemic steroids; Z79.899 Other long term (current) drug therapy; Z79.82 Long term (current) use of aspirin; I25.2 Old myocardial infarction; Z82.49 Family history of ischemic heart disease and other diseases of the circulatory system; Z86.16 Personal history of COVID-19; Z86.73 Personal history of transient ischemic attack (TIA), and cerebral infarction without residual deficits; Z87.891 Personal history of nicotine dependence; Z95.5 Presence of coronary angioplasty implant and graft
CPT/HCPCS: 36415; 71046; 74019; 80053; 83036; 83735; 84145; 85025; 85610; 85730; 87040; 87636; 93005; 94640; 94760; 96374; 99285

== ENCOUNTER 2023-04-16 12:03 | Observation (INO) | payer MEDICARE, OTHER ==
[2023-04-16 12:31] LABS: Basophils % (A) 1 %; Eosinophils # (A) 0.2 k/uL (0-0.7); Eosinophils % (A) 2 %; HGB 15.6 gm/dL (13.0-17.5); Lymphocytes # (A) 1.4 k/uL (1.0-4.8); Lymphocytes % (A) 20 %; MCH 29.9 pg (25.0-35.0); MCHC 34.7 g/dL (31.0-37.0); MCV 86.1 fL (80.0-100.0); Mean Platelet Volume 7.5; Monocytes # (A) 0.4 k/uL (0-1.0); Monocytes % (A) 6 %; Neutrophils % (A) 70 %; Platelet Count 241 k/uL (150-450); RBC 5.22 m/uL (4.30-5.90); RDW 14.1 % (11.5-15.5); WBC 7.1 k/uL (3.8-10.6)
--- NOTE | 2023-04-16 12:46 | XR ---
EXAMINATION TYPE: XR chest 2V DATE OF EXAM: 04/16/2023 12:42 PM COMPARISON: Chest radiographs from 04/01/2023 TECHNIQUE: XR chest 2V Frontal and lateral views of the chest. CLINICAL INDICATION:Male, 63 years old with history of Chest Pain; FINDINGS: Lungs/Pleura: There is flattening of the diaphragm with increased lucency of the lungs. No evidence o f pneumothorax, pleural effusion or focal consolidation. Pulmonary vascularity: Unremarkable. Heart/mediastinum: Cardiomediastinal silhouette is unremarkable. Atherosclerotic calcifications are seen in the aorta. Musculoskeletal: No acute osseous pathology. IMPRESSION: 1. No acute cardiopulmonary disease process. 2. COPD changes.
[2023-04-16 13:07] LABS: ALT 38 U/L (4-49); AST 30 U/L (17-59); African American GFR (CKD) >90 (>60 ml/min/1.73 sqM); Albumin 4.2 g/dL (3.5-5.0); Alkaline Phosphatase 84 U/L (38-126); Anion Gap 9 mmol/L; Blood Urea Nitrogen 16 mg/dL (9-20); Calcium 9.3 mg/dL (8.4-10.2); Carbon Dioxide 26 mmol/L (22-30); Chloride 104 mmol/L (98-107); Glucose 138 mg/dL (74-99); Magnesium 1.9 mg/dL (1.6-2.3); Non-African American GFR(CKD) 90 (>60 ml/min/1.73 sqM); Potassium 4.5 mmol/L (3.5-5.1); Sodium 139 mmol/L (137-145); Total Bilirubin 0.8 mg/dL (0.2-1.3); Total Protein 7.1 g/dL (6.3-8.2)
[2023-04-16] MEDS ORDERED: ALBUTEROL NEBULIZED 2.5 MG/3 ML INHALATION STA (13:14)
[2023-04-16 13:16] LABS: NT-Pro-B-Type Natriuretic Pept 70 pg/mL
[2023-04-16 13:27] LABS: INR 0.9 (<1.2); Partial Thromboplastin Time 23.9 sec (22.0-30.0); Prothrombin Time 10.4 sec (10.0-12.5)
[2023-04-16] MEDS ORDERED: MORPHINE SULFATE 4 MG/ML SYRINGE IVP STA (14:19)
[2023-04-16] MEDS ORDERED: ASPIRIN 81 MG PO STA (14:23)
[2023-04-16] MEDS ORDERED: NITROGLYCERIN SL TABS 0.4 MG TAB SUBLINGUAL PRN (14:30)
--- NOTE | 2023-04-16 14:42 | ED ---
Chest Pain HPI - General Chief Complaint: Chest Pain Stated Complaint: chest pains Time Seen by Provider: 04/16/23 13:06 Source: patient Mode of arrival: ambulatory Limitations: no limitations - History of Present Illness Initial Comments: The patient is a 63-year-old male with history COPD, hyperlipidemia, diabetes hypertension and coronary artery disease with 2 stent placements presents emergency room by his for chest pain. For the last 4 days and is progressively worsening. It is worse with ambulation and activity. Patient has taken nitro last night and today which did improve the chest pain however the pain continues to come back and worsened. She has occasional exertional dyspnea. She denies any significant cough congestion or fever. Denies any hemoptysis. Patient uses oxygen at night yesterday during the day as well. Patient is also had nausea. His remote mortgage underwriter is Dr. Fonseca. Patient had cardiac cath about a year ago. He was told that he had 2 blockages at 40% and they wanted to monitor it before stenting. - Related Data Home Medications Medication Instructions Recorded Confirmed Atorvastatin Calcium [Lipitor] 80 mg PO HS 04/26/22 04/01/23 FLUoxetine HCL [PROzac] 20 mg PO DAILY 04/26/22 04/01/23 FLUoxetine HCL [PROzac] 40 mg PO DAILY 04/26/22 04/01/23 Isosorbide Mononitrate ER [Imdur] 90 mg PO DAILY 04/26/22 04/01/23 Metoprolol Tartrate [Lopressor] 25 mg PO BID-W/MEALS 04/26/22 04/01/23 Nitroglycerin Sl Tabs [Nitrostat] 0.4 mg SL Q5M PRN 04/26/22 04/01/23 rOPINIRole HCL [Requip] 0.5 mg PO TID 04/26/22 04/01/23 Albuterol Nebulized [Ventolin 2.5 mg INHALATION RT-QID PRN 01/27/23 04/01/23 Nebulized] Budesonide-Formot 160-4.5 Mcg 2 puff INHALATION RT-BID 01/27/23 04/01/23 [Symbicort 160-4.5 Mcg Inhaler] Azelastine HCl [Astelin Nasal 1 spr EA NOSTRIL BID 04/01/23 04/01/23 [place]] Budesonide [Pulmicort] 0.5 mg INHALATION RT-DAILY 04/01/23 04/01/23 Losartan [Cozaar] 25 mg PO DAILY 04/01/23 04/01/23 Previous Rx's Medication Instructions Recorded Cholecalciferol [Vitamin D3 (125 125 mcg PO DAILY 30 Days #30 tab 04/30/22 Mcg = 5000 Iu)] Aspirin 81 mg PO DAILY #30 tab 05/14/22 Ipratropium-Albuterol Nebulize 3 ml INHALATION RT-QID 30 Days 01/30/23 [Duoneb 0.5 mg-3 mg/3 ml Soln] #120 each Pantoprazole Sodium 40 mg PO BID #30 tab 04/02/23 Simethicone Chew [Mylicon Chew] 40 mg PO QID #90 tab 04/02/23 Allergies Allergy/AdvReac Type Severity Reaction Status Date / Time codeine Allergy Anaphylaxis Verified 04/16/23 12:13 peanut Allergy Migraine/Allergy Verified 04/16/23 12:13 testing Review of Systems ROS Statement: Those systems with pertinent positive or pertinent negative responses have been documented in the HPI. ROS Other: All systems not noted in ROS Statement are negative. EKG Findings - EKG Comments: EKG Findings:: EKG shows normal sinus rhythm at a rate of [address] segment elevation or T wave changes, normal GA intervals. Past Medical History Past Medical History: Chest Pain / Angina, COPD, CVA/TIA, GERD/Reflux, Hyperlipidemia, Hypertension, Myocardial Infarction (CT), Osteoarthritis (OA), Pneumonia Additional Past Medical History / Comment(s): COVID April 2022 and December 2022, multiple MIs, TIA, peripheral vision loss of left eye, white mass on brain in MRI, wears o2 at home 3L at night prn, heart monitor from cardiology office r/t tachycardia Last Myocardial Infarction Date:: 2020 History of Any Multi-Drug Resistant Organisms: None Reported Past Surgical History: Heart Catheterization With Stent Additional Past Surgical History / Comment(s): 2 cardiac stents Past Anesthesia/Blood Transfusion Reactions: No Reported Reaction Date of Last Stent Placement:: 2020 Past Psychological History: Anxiety Smoking Status: Former smoker Past Alcohol Use History: None Reported Past Drug Use History: None Reported - Past Family History Father Family Medical History: Myocardial Infarction (CT) Additional Family Medical History / Comment(s): from [place] Brother(s) Family Medical History: Myocardial Infarction (CT) Additional Family Medical History / Comment(s): from [place] General Exam Limitations: no limitations General appearance: alert Head exam: Present: atraumatic Eye exam: Present: normal appearance ENT exam: Present: normal exam Neck exam: Present: normal inspection Respiratory exam: Present: normal lung sounds bilaterally, other (Mild wheezing) Cardiovascular Exam: Present: regular rate, normal rhythm GI/Abdominal exam: Present: soft, tenderness (Nontender with palpation) Extremities exam: Present: full ROM Back exam: Present: full ROM Neurological exam: Present: alert, oriented X3, CN II-XII intact Psychiatric exam: Present: normal affect, normal mood Skin exam: Present: warm, dry Course Vital Signs 04/16/23 04/16/23 12:10 13:26 Pulse Rate 74 63 Respiratory 18 18 Rate Blood Pressure 157/81 145/82 O2 Sat by Pulse 96 Oximetry - Reevaluation(s) Reevaluation #1: 04/16/23 14:39 Patient had no pain after taking nitro however later in the ED visit he developed pain and was given morphine. He was also given aspirin. Patient will be admitted for cardiac evaluation at this time. His troponin is within normal limits at this time and there is no ST segment elevation. Chest Pain MDM - MDM Was pt. sent in by a medical professional or institution ([facility], [facility], urgent care, hospital, or [facility]...) When possible be specific @ -[No] Did you speak to anyone other than the patient for history (EMS, parent, family, police, friend...)? What history was obtained from this source @ - a bedside Did you review nursing and triage notes (agree or disagree)? Why? @ -[I reviewed and agree with nursing and triage notes] Were old charts reviewed (outside hosp., previous admission, EMS record, old EKG, old radiological studies, urgent care reports/EKG's, [facility] records)? Report findings @ -Yes old charts were reviewed including recent hospitalization and cardiac evaluation. Differential Diagnosis (chest pain, altered mental status, abdominal pain women, abdominal pain men, vaginal bleeding, weakness, fever, dyspnea, syncope, headache, dizziness, GI bleed, back pain, seizure, CVA, palpatations, mental health, musculoskeletal)? @ -Chest pain, angina, CT, GERD EKG interpreted by me (3pts min.). @ -EKG shows normal sinus rhythm at a rate of 62 bpm, no acute ST segment elevation or acute changes X-rays interpreted by me (1pt min.). @ -Chest x-ray is negative for any pneumothorax or pneumonia or other acute changes. COPD changes seen. CT interpreted by me (1pt min.). @ -[None done] U/S interpreted by me (1pt. min.). @ -[None done] What testing was considered but not performed or refused? (CT, X-rays, U/S, labs)? Why? @ -[None] What meds were considered but not given or refused? Why? @ -[None] Did you discuss the management of the patient with other professionals (professionals i.e. , PA, HIMS CODER, lab, RT, psych nurse, social insurance administrator, dry cell sealer, teacher, development officer, case management coordinator)? Give summary @ -I discussed patient's symptoms workup and admission plan with attending ED physician Dr. Szymanski today. Was smoking cessation discussed for >3mins.? @ -[No] Was critical care preformed (if so, how long)? @ -[No] Were there social determinants of health that impacted care today? How? (Homelessness, low income, unemployed, alcoholism, drug addiction, transportation, low edu. Level, literacy, decrease access to med. care, [facility], rehab)? @ -[No] Was there de-escalation of care discussed even if they declined (Discuss DNR or withdrawal of care, Hospice)? DNR status @ -[No] What co-morbidities impacted this encounter? (DM, HTN, Smoking, COPD, CAD, Cancer, CVA, ARF, Chemo, Hep., AIDS, mental health diagnosis, sleep apnea, morbid obesity)? @ -History of coronary artery disease with 2 stent placement, hyponatremia, diabetes, hypertension. Was patient admitted / discharged? Hospital course, mention meds given and route, prescriptions, significant lab abnormalities, going to OR and other pertinent info. @ -Patient will be admitted for cardiac evaluation given his coronary artery disease history with previous stem basements. Undiagnosed new problem with uncertain prognosis? @ -[No] Drug Therapy requiring intensive monitoring for toxicity (Heparin, Nitro, Insulin, Cardizem)? @ -[No] Were any procedures done? @ -[No] Diagnosis/symptom? @ -Chest pain Acute, or Chronic, or Acute on Chronic? @ -Acute Uncomplicated (without systemic symptoms) or Complicated (systemic symptoms)? @ -Uncomplicated Side effects of treatment? @ -[No] Exacerbation, Progression, or Severe Exacerbation? @ -[No] Poses a threat to life or bodily function? How? (Chest pain, USA, CT, pneumonia, PE, COPD, DKA, ARF, appy, cholecystitis, CVA, Diverticulitis, Homicidal, Suicidal, threat to staff... and all critical care pts) @ -Yes poses a risk of CT, declining condition, if not evaluated and treated Disposition Clinical Impression: Chest pain Disposition: ADMITTED IP TO THIS HOSP Condition: Fair Is patient prescribed a controlled substance at d/c from ED?: No If prescribed controlled substance>3 days was MAPS reviewed?: No Referrals: Yara Wong MD [Primary Care Provider] - 1-2 days Decision Time: 14:42
[2023-04-16] MEDS ORDERED: ONDANSETRON 4 MG/2 ML VIAL IVP STA (14:45)
[2023-04-16] MEDS: NITROGLYCERIN OINT 1 INCH/GM PACKET TOPICAL SCH (18:41)
[2023-04-17] MEDS: NITROGLYCERIN OINT 1 INCH/GM PACKET TOPICAL SCH ×2 (04:12→06:27)
[2023-04-17] MEDS ORDERED: MAG HYDROX/AL HYDROX/SIMETH 30 ML, HYOSCYAMINE ELIXIR 10 ML, LIDOCAINE VISCOUS 10 ML PO ONE ×3 (08:53)
[2023-04-17] MEDS ORDERED: METOPROLOL TARTRATE 25 MG TAB PO SCH (09:00)
[2023-04-17] MEDS ORDERED: ASPIRIN 325 MG TAB PO SCH (09:00)
[2023-04-17] MEDS ORDERED: PANTOPRAZOLE 40 MG/10 ML VIAL IVP SCH (09:00)
[2023-04-17 09:08] LABS: Chol/HDL Ratio 7.39 Ratio; LDL Cholesterol,Calculated 167.4 mg/dL (0.0-131.0)
[2023-04-17] MEDS: ISOSORBIDE MONONITRATE ER 30 MG TAB.ER.24H PO SCH (09:44)
[2023-04-17] MEDS: RANOLAZINE 500 MG TAB.ER.12H PO SCH ×2 (09:44→19:54)
[2023-04-17] MEDS: LOSARTAN 25 MG TAB PO SCH (09:44)
[2023-04-17] MEDS: METOPROLOL TARTRATE 50 MG TAB PO SCH ×2 (09:44→17:24)
[2023-04-17] MEDS: EZETIMIBE 10 MG TAB PO SCH (09:44)
[2023-04-17] MEDS: ASPIRIN 81 MG PO SCH (09:45)
[2023-04-17] MEDS: PANTOPRAZOLE 40 MG TABLET PO SCH (09:57)
[2023-04-17] MEDS ORDERED: FAMOTIDINE 20 MG TAB PO PRN (09:58)
[2023-04-17] MEDS: AZELASTINE 137MCG/SPRAY EA NOSTRIL SCH ×2 (11:21→19:54)
--- NOTE | 2023-04-17 11:47 | P.CRDCN ---
History of Present Illness History of present illness: HISTORY OF PRESENT ILLNESS: This is a 63-year-old male with a past medical history significant for coronary artery disease with previous stenting in [place], hypertension, hyperlipidemia, COPD on home oxygen, and chronic chest pain. Patient follows in the office with Dr. Fonseca. We have been asked to see the patient in consultation for chest pain. Patient examined at the bedside. Patient presented to the hospital with a chief complaint of chest discomfort. Patient states he was throwing up at home and having heartburn symptoms. He denies having any s hortness of breath at home. He does report having a dry cough. He states that he checked his blood pressure yesterday and it was elevated however the patient was in pain and having episodes of emesis at that time. His blood pressure has been stable since coming to the hospital. He states that he took nitro at home which relieved his symptoms. * EKG reveals sinus mechanism with no signs of acute ischemia * Chest xray COPD changes. No acute cardiopulmonary process * Most recent echocardiogram obtained in November 2022 revealing ejection fraction 55-60%, mild TR with no evidence of pulmonary hypertension, and trace to mild MR * Cardiac catheterization history: June 2022 revealing mild coronary artery disease including 2030% circumflex and 10-20% LAD stenosis with patent nondominant RCA stenting. Mildly elevated left sided filling pressures. REVIEW OF SYSTEMS: At the time of my exam: CONSTITUTIONAL: Denies fever or chills. HEENT: Denies blurred vision, vision changes, or eye pain. Denies hemoptysis CARDIOVASCULAR: Denies chest pain. Denies orthopnea. Denies PND. Denies palpitations RESPIRATORY: Denies shortness of breath. GASTROINTESTINAL: Denies abdominal pain. Denies nausea or vomiting. HEMATOLOGIC: Denies bleeding disorders. GENITOURINARY: Denies any blood in urine. SKIN: Denies pruitis. Denies rash. PHYSICAL EXAM: VITAL SIGNS: Reviewed. GENERAL: Well-developed in no acute distress. HEENT: Head is normocephalic. Pupils are equal, round. Sclerae anicteric. Mucous membranes of the mouth are moist. Neck supple. No JVD or thyromegaly LUNGS: Respirations even and unlabored. Lungs with expiratory wheezing noted HEART: Regular rate and rhythm. S1 and S2 heard. ABDOMEN: Soft. Nondistended. Nontender. EXTREMITIES: Normal range of motion. No clubbing or cyanosis. Peripheral pulses intact. No lower extremity edema NEUROLOGIC: Awake and alert. Oriented x 3. ASSESSMENT: Nausea and vomiting with symptoms of heartburn Chest pain, atypical, troponin negative 3 Coronary artery disease with previous stenting Hypertension Hyperlipidemia COPD on home oxygen PLAN: An acute coronary event has been ruled out Resume home cardiac medications GI cocktail 1 Begin Protonix 40 mg daily daily No need to obtain echocardiogram Patient may benefit from GI workup Stable from a cardiac perspective Patient follow-up post discharge with Dr. Fonseca Nurse practitioner note has been reviewed by physician. Signing provider agrees with the documented findings, assessment, and plan of care. Past Medical History Past Medical History: Chest Pain / Angina, COPD, CVA/TIA, GERD/Reflux, Hyperlipidemia, Hypertension, Myocardial Infarction ([place]), Osteoarthritis (OA), Pneumonia Additional Past Medical History / Comment(s): COVID April 2022 and December 2022, multiple MIs, TIA, peripheral vision loss of left eye, white mass on brain in MRI, wears o2 at home 3L at night prn, heart monitor from cardiology office r/t tachycardia Last Myocardial Infarction Date:: 2020 History of Any Multi-Drug Resistant Organisms: None Reported Past Surgical History: Heart Catheterization With Stent Additional Past Surgical History / Comment(s): 2 cardiac stents Past Anesthesia/Blood Transfusion Reactions: No Reported Reaction Date of Last Stent Placement:: 2020 Past Psychological History: Anxiety Smoking Status: Former smoker Past Alcohol Use History: None Reported Past Drug Use History: None Reported - Past Family History Father Family Medical History: Myocardial Infarction ([place]) Additional Family Medical History / Comment(s): from [place] Brother(s) Family Medical History: Myocardial Infarction ([place]) Additional Family Medical History / Comment(s): from [place] Medications and Allergies Home Medications Medication Instructions Recorded Confirmed Type FLUoxetine HCL [PROzac] 20 mg PO DAILY 04/26/22 04/16/23 History FLUoxetine HCL [PROzac] 40 mg PO DAILY 04/26/22 04/16/23 History Isosorbide Mononitrate ER [Imdur] 90 mg PO DAILY 04/26/22 04/16/23 History Metoprolol Tartrate [Lopressor] 25 mg PO BID-W/MEALS 04/26/22 04/16/23 History Nitroglycerin Sl Tabs [Nitrostat] 0.4 mg SL Q5M PRN 04/26/22 04/16/23 History rOPINIRole HCL [Requip] 0.5 mg PO TID 04/26/22 04/16/23 History Ipratropium-Albuterol Nebulize 3 ml INHALATION RT-QID 30 Days 01/30/23 04/16/23 Rx [Duoneb 0.5 mg-3 mg/3 ml Soln] #120 each Azelastine HCl [Astelin Nasal 1 spr EA NOSTRIL BID 04/01/23 04/16/23 History [place]] Losartan [Cozaar] 25 mg PO DAILY 04/01/23 04/16/23 History Simethicone Chew [Mylicon Chew] 40 mg PO QID #90 tab 04/02/23 04/16/23 Rx Ezetimibe [Zetia] 10 mg PO DAILY 04/16/23 04/16/23 History Famotidine [Pepcid] 20 mg PO HS PRN 04/16/23 04/16/23 History Allergies Allergy/AdvReac Type Severity Reaction Status Date / Time codeine Allergy Anaphylaxis Verified 04/16/23 12:13 peanut Allergy Migraine/Allergy Verified 04/16/23 12:13 testing Physical Exam Vitals: Vital Signs Temp Pulse Pulse Resp BP BP BP 04/17/23 08:05 97.7 F 93 16 129/71 04/17/23 08:00 93 16 04/17/23 02:23 97.8 F 62 15 122/61 04/17/23 02:00 73 04/16/23 22:45 68 04/16/23 21:25 97.9 F 68 15 128/76 04/16/23 18:10 73 18 140/88 04/16/23 15:55 61 18 151/93 04/16/23 15:08 57 L 04/16/23 14:59 64 04/16/23 14:39 97.8 F 71 18 141/79 04/16/23 13:26 63 18 145/82 04/16/23 12:10 74 18 157/81 Pulse Ox 04/17/23 08:05 93 L 04/17/23 08:00 04/17/23 02:23 97 04/17/23 02:00 04/16/23 22:45 04/16/23 21:25 96 04/16/23 18:10 97 10/26/23 15:55 92 L 04/16/23 15:08 04/16/23 14:59 04/16/23 14:39 97 04/16/23 13:26 04/16/23 12:10 96 Intake and Output 04/16/23 04/17/23 04/17/23 22:59 06:59 14:59 Other: Voiding Method Toilet Toilet # Voids 1 1 Weight 81.647 kg Results 04/16/23 12:14 04/16/23 12:14 Cardiac Enzymes 04/16/23 04/16/23 04/16/23 Range/Units 12:14 12:14 16:35 AST 30 (17-59) U/L Troponin I <0.012 <0.012 (0.000-0.034) ng/mL 04/16/23 Range/Units 20:05 AST (17-59) U/L Troponin I 0.015 (0.000-0.034) ng/mL Coagulation 04/16/23 Range/Units 12:14 PT 10.4 (10.0-12.5) sec APTT 23.9 (22.0-30.0) sec Lipids 04/17/23 Range/Units 05:54 Triglycerides 179.00 H (0.00-149.00) mg/dL Cholesterol 235.00 H (0.00-200.00) mg/dL HDL Cholesterol 31.80 L (40.00-60.00) mg/dL Cholesterol/HDL Ratio 7.39 Ratio CBC 04/16/23 Range/Units 12:14 WBC 7.1 (3.8-10.6) k/uL RBC 5.22 (4.30-5.90) m/uL Hgb 15.6 (13.0-17.5) gm/dL Hct 45.0 (39.0-53.0) % Plt Count 241 (150-450) k/uL Comprehensive Metabolic Panel 04/16/23 Range/Units 12:14 Sodium 139 (137-145) mmol/L Potassium 4.5 (3.5-5.1) mmol/L Chloride 104 (98-107) mmol/L Carbon Dioxide 26 (22-30) mmol/L BUN 16 (9-20) mg/dL Creatinine 0.90 (0.66-1.25) mg/dL Glucose 138 H (74-99) mg/dL Calcium 9.3 (8.4-10.2) mg/dL AST 30 (17-59) U/L ALT 38 (4-49) U/L Alkaline Phosphatase 84 (38-126) U/L Total Protein 7.1 (6.3-8.2) g/dL Albumin 4.2 (3.5-5.0) g/dL Current Medications Generic Name Dose Route Start Last Admin Trade Name Freq PRN Reason Stop Dose Admin Albuterol/Ipratropium 3 ml 04/17/23 12:00 Ipratropium-Albuterol 3 Ml Neb INHALATION RT-QID MAIKEL Aspirin 81 mg 04/17/23 09:00 04/17/23 09:45 Aspirin 81 Mg PO 81 mg DAILY MAIKEL Administration Azelastine HCl 1 spray 04/17/23 10:00 04/17/23 11:21 Azelastine 137mcg/[place] EA NOSTRIL Not Given BID [facility] Ezetimibe 10 mg 04/17/23 09:00 04/17/23 09:44 Ezetimibe 10 Mg Tab PO 10 mg DAILY MAIKEL Administration Famotidine 20 mg 04/17/23 09:58 Famotidine 20 Mg Tab PO HS PRN GI Upset Fluoxetine HCl 40 mg 04/18/23 09:00 Fluoxetine Hcl 20 Mg Cap PO DAILY [facility] Isosorbide Mononitrate 90 mg 04/17/23 09:00 04/17/23 09:44 Isosorbide Mononitrate Er 30 Mg Tab.Er.24h PO 90 mg DAILY MAIKEL Administration Losartan Potassium 25 mg 04/17/23 09:00 04/17/23 09:44 Losartan 25 Mg Tab PO 25 mg DAILY MAIKEL Administration Metoprolol Tartrate 50 mg 04/17/23 09:00 04/17/23 09:44 Metoprolol Tartrate 50 Mg Tab PO 50 mg BID-W/MEALS MAIKEL Administration Pantoprazole Sodium 40 mg 04/17/23 09:00 04/17/23 09:57 Pantoprazole 40 Mg Tablet PO 40 mg AC-BRKFST MAIKEL Administration Ranolazine 500 mg 04/17/23 09:00 04/17/23 09:44 Ranolazine 500 Mg Tab.Er.12h PO 500 mg Q12HR MAIKEL Administration Ropinirole HCl 0.5 mg 10/27/23 16:00 Ropinirole Hcl 0.25 Mg Tab PO TID MAIKEL Intake and Output 04/16/23 04/17/23 04/17/23 22:59 06:59 14:59 Other: Voiding Method Toilet Toilet # Voids 1 1 Weight 81.647 kg 04/16/23 12:14 04/16/23 12:14
--- NOTE | 2023-04-17 12:10 | CT ---
EXAMINATION TYPE: CT chest angio for PE DATE OF EXAM: 04/17/2023 COMPARISON: 12/03/2022. HISTORY: SOB CT DLP: 388.6 mGycm Automated exposure control for dose reduction was used. CONTRAST: CT Chest for pulmonary embolism performed with with IV Contrast, patient injected with 100 mL of Isov ue 370. COMPARISON: None. FINDINGS: Lungs: There is moderate diffuse centrilobular emphysema. Pleura: Normal. Mediastinum and Stephanie: Normal. Pulmonary Arteries: Normal. Cardiovascular: There is moderate vascular calcification throughout the thoracic aorta without eviden ce of aneurysmal dilation or dissection. Upper Abdomen: Normal. Chest Wall: Normal. Musculoskeletal: Normal. IMPRESSION: 1. No evidence of pulmonary embolus. 2. Severe emphysema.
[2023-04-17] MEDS: IPRATROPIUM-ALBUTEROL 3 ML NEB INHALATION SCH ×3 (12:37→21:07)
--- NOTE | 2023-04-17 14:24 | P.HPIM ---
History of Present Illness H&P Date: 04/17/23 History of present illness; patient is 63-year-old gentleman past medical histor y significant for COPD, hyperlipidemia, diabetes, hypertension, coronary disease status post stent placement was admitted to the ER because of chest pain. Patient stated that this pain is going on for the last 4 days and is intermittent and is gradually worsening. Chest pain is central in location, worsens with ambulation and activity, does not radiate, it gets relieved by nitro but once the nitro effect wears off chest pain worsens. Patient also vomiting of exertional dyspnea. Denies any fever or chills. No complaint of hemoptysis. Denies any swelling of lower extremities. Because of chest pain, patient came to the ER Initial lab work done in the ER showed WBC 7.1, hemoglobin 15.6, platelet count 241, sodium 100 and 4.5, BUN 16, creatinine 0.90, troponin 0.012, proBNP 70 EKG done in the ER heart rate 62, QRS, 98, no significant elevation, no T-wave inversions seen in any leads Chest x-ray done in the ER no acute cardiac process Patient admitted to medicine service REVIEW OF SYSTEMS: CONSTITUTIONAL: No fever, no malaise, no fatigue. HEENT: No recent visual problems or hearing problems. Denied any sore throat. CARDIOVASCULAR: As mentioned above PULMONARY: As mentioned above GASTROINTESTINAL: No diarrhea, no nausea, no vomiting, no abdominal pain. NEUROLOGICAL: No headaches, no weakness, no numbness. HEMATOLOGICAL: Denies any bleeding or petechiae. GENITOURINARY: Denies any burning micturition, frequency, or urgency. MUSCULOSKELETAL/RHEUMATOLOGICAL: Denies any joint pain, swelling, or any muscle pain. ENDOCRINE: Denies any polyuria or polydipsia. The rest of the 14-point review of systems is negative. PHYSICAL EXAMINATION: GENERAL: The patient is alert and oriented x3, not in any acute distress. Well developed, well nourished. HEENT: Pupils are round and equally reacting to light. EOMI. No scleral icterus. No conjunctival pallor. Normocephalic, atraumatic. No pharyngeal erythema. No thyromegaly. CARDIOVASCULAR: S1 and S2 present. No murmurs, rubs, or gallops. PULMONARY: Chest is clear to auscultation, no wheezing or crackles. ABDOMEN: Soft, nontender, nondistended, normoactive bowel sounds. No palpable organomegaly. MUSCULOSKELETAL: No joint swelling or deformity. EXTREMITIES: No cyanosis, clubbing, or pedal edema. NEUROLOGICAL: Gross neurological examination did not reveal any focal deficits. SKIN: No rashes. Assessment and plan Acute coronary syndrome History of COPD Hypertension Diabetes mellitus hyperlipidemia History of Coronary artery disease Monitor vital signs Monitor CBC Monitor CMP Continue telemetry monitoring Trend troponin Ordered d-dimer Continue breathing treatment Continue home meds Cardiology consulted Labs and medication were reviewed.. Continue same treatment. Continue with symptomatic treatment. Resume home medication. Monitor labs and vitals. DVT and GI prophylaxis. Further recommendations as per clinical course of the patient Dictation was produced using [employer] dictation software. please excuse any grammatical, word or spelling errors. Past Medical History Past Medical History: Chest Pain / Angina, COPD, CVA/TIA, GERD/Reflux, Hy perlipidemia, Hypertension, Myocardial Infarction (AR), Osteoarthritis (OA), Pneumonia Additional Past Medical History / Comment(s): COVID April 2022 and December 2022, multiple MIs, TIA, peripheral vision loss of left eye, white mass on brain in MRI, wears o2 at home 3L at night prn, heart monitor from cardiology office r/t tachycardia Last Myocardial Infarction Date:: 2020 History of Any Multi-Drug Resistant Organisms: None Reported Past Surgical History: Heart Catheterization With Stent Additional Past Surgical History / Comment(s): 2 cardiac stents Past Anesthesia/Blood Transfusion Reactions: No Reported Reaction Date of Last Stent Placement:: 2020 Past Psychological History: Anxiety Smoking Status: Former smoker Past Alcohol Use History: None Reported Past Drug Use History: None Reported - Past Family History Father Family Medical History: Myocardial Infarction (AR) Additional Family Medical History / Comment(s): from [place] Brother(s) Family Medical History: Myocardial Infarction (AR) Additional Family Medical History / Comment(s): from [place] Medications and Allergies Home Medications Medication Instructions Recorded Confirmed Type FLUoxetine HCL [PROzac] 20 mg PO DAILY 04/26/22 04/16/23 History FLUoxetine HCL [PROzac] 40 mg PO DAILY 04/26/22 04/16/23 History Isosorbide Mononitrate ER [Imdur] 90 mg PO DAILY 04/26/22 04/16/23 History Metoprolol Tartrate [Lopressor] 25 mg PO BID-W/MEALS 04/26/22 04/16/23 History Nitroglycerin Sl Tabs [Nitrostat] 0.4 mg SL Q5M PRN 04/26/22 04/16/23 History rOPINIRole HCL [Requip] 0.5 mg PO TID 04/26/22 04/16/23 History Ipratropium-Albuterol Nebulize 3 ml INHALATION RT-QID 30 Days 01/30/23 04/16/23 Rx [Duoneb 0.5 mg-3 mg/3 ml Soln] #120 each Azelastine HCl [Astelin Nasal 1 spr EA NOSTRIL BID 04/01/23 04/16/23 History [place]] Losartan [Cozaar] 25 mg PO DAILY 04/01/23 04/16/23 History Simethicone Chew [Mylicon Chew] 40 mg PO QID #90 tab 04/02/23 04/16/23 Rx Ezetimibe [Zetia] 10 mg PO DAILY 04/16/23 04/16/23 History Famotidine [Pepcid] 20 mg PO HS PRN 04/16/23 04/16/23 History Allergies Allergy/AdvReac Type Severity Reaction Status Date / Time codeine Allergy Anaphylaxis Verified 04/16/23 12:13 peanut Allergy Migraine/Allergy Verified 04/16/23 12:13 testing Physical Exam Vitals: Vital Signs Temp Pulse Pulse Resp BP BP BP 04/17/23 08:05 97.7 F 93 16 129/71 04/17/23 02:23 97.8 F 62 15 122/61 04/17/23 02:00 73 04/16/23 22:45 68 04/16/23 21:25 97.9 F 68 15 128/76 04/16/23 18:10 73 18 140/88 04/16/23 15:55 61 18 151/93 04/16/23 15:08 57 L 04/16/23 14:59 64 04/16/23 14:39 97.8 F 71 18 141/79 04/16/23 13:26 63 18 145/82 04/16/23 12:10 74 18 157/81 Pulse Ox 04/17/23 08:05 93 L 04/17/23 02:23 97 04/17/23 02:00 04/16/23 22:45 04/16/23 21:25 96 04/16/23 18:10 97 04/16/23 15:55 92 L 04/16/23 15:08 04/16/23 14:59 04/16/23 14:39 97 04/16/23 13:26 04/16/23 12:10 96 Intake and Output 04/16/23 04/17/23 04/17/23 22:59 06:59 14:59 Other: Voiding Method Toilet # Voids 1 1 Weight 81.647 kg Results CBC & Chem 7: 04/16/23 12:14 04/16/23 12:14 Labs: Abnormal Lab Results - Last 24 Hours (Table) 04/16/23 04/17/23 Range/Units 12:14 05:54 Glucose 138 H (74-99) mg/dL Triglycerides 179.00 H (0.00-149.00) mg/dL Cholesterol 235.00 H (0.00-200.00) mg/dL LDL Cholesterol, Calc 167.4 H (0.0-131.0) mg/dL HDL Cholesterol 31.80 L (40.00-60.00) mg/dL Thrombosis Risk Factor Assmnt - Choose All That Apply Any of the Below Risk Factors Present?: Yes Each Factor Represents 1 point: Abnormal pulmonary function (COPD), Obesity (BMI >25) Other Risk Factors: Yes Each Risk Factor Represents 2 Points: Age 61-74 years Other congenital or acquired thrombophilia - If yes, enter type in comment: No Thrombosis Risk Factor Assessment Total Risk Factor Score: 4 Thrombosis Risk Factor Assessment Level: Moderate Risk
[2023-04-18] MEDS: METOPROLOL TARTRATE 50 MG TAB PO SCH (06:26)
[2023-04-18] MEDS: PANTOPRAZOLE 40 MG TABLET PO SCH (06:26)
[2023-04-18 07:41] VITALS: RESP 16
[2023-04-18] MEDS: IPRATROPIUM-ALBUTEROL 3 ML NEB INHALATION SCH ×2 (08:02→12:07)
[2023-04-18] MEDS ORDERED: FLUoxetine HCL 20 MG CAP PO SCH ×2 (09:00)
[2023-04-18] MEDS: AZELASTINE 137MCG/SPRAY EA NOSTRIL SCH (09:34)
[2023-04-18] MEDS: ISOSORBIDE MONONITRATE ER 30 MG TAB.ER.24H PO SCH (09:34)
[2023-04-18] MEDS: ASPIRIN 81 MG PO SCH (09:35)
[2023-04-18] MEDS: EZETIMIBE 10 MG TAB PO SCH (09:35)
[2023-04-18] MEDS: LOSARTAN 25 MG TAB PO SCH (09:35)
[2023-04-18] MEDS: RANOLAZINE 500 MG TAB.ER.12H PO SCH (09:35)
[2023-04-18] MEDS ORDERED: ONDANSETRON 4 MG/2 ML VIAL IVP PRN (12:07)
--- NOTE | 2023-04-18 14:35 | P.DS ---
Providers Date of admission: 04/16/23 14:22 Expected date of discharge: 04/18/23 Attending physician: Gia Louie MD Consults: 04/16/23 14:31 Consult Physician Urgent Consulting Provider: Te Fonseca Consult Reason/Comments: Chest pain Do you want consulting provider notified?: Yes Primary care physician: [facility] Course: Discharge diagnoses; Chest pain, Acute coronary syndrome ruled out History of COPD Hypertension Diabetes mellitus hyperlipidemia History of Coronary artery disease Hospital course; patient is 63-year-old gentleman past medical history significant for COPD, hyperlipidemia, diabetes, hypertension, coronary disease status post stent placement was admitted to the ER because of chest pain. Patient stated that this pain is going on for the last 4 days and is intermittent and is gradually worsening. Chest pain is central in location, worsens with ambulation and activity, does not radiate, it gets relieved by nitro but once the nitro effect wears off chest pain worsens. Patient also vomiting of exertional dyspnea. Denies any fever or chills. No complaint of hemoptysis. Denies any swelling of lower extremities. Because of chest pain, patient came to the ER Initial lab work done in the ER showed WBC 7.1, hemoglobin 15.6, platelet count 241, sodium 100 and 4.5, BUN 16, creatinine 0.90, troponin 0.012, proBNP 70 EKG done in the ER heart rate 62, QRS, 98, no significant elevation, no T-wave inversions seen in any leads Chest x-ray done in the ER no acute cardiac process Patient admitted to medicine service 04/18. Patient seen and examined. Patient was seen by cardiology, don't think patient chest pain is related to any cardiac event, troponins have remained flat. Recommended outpatient GI evaluation PHYSICAL EXAMINATION: GENERAL: The patient is alert and oriented x3, not in any acute distress. Well developed, well nourished. HEENT: Pupils are round and equally reacting to light. EOMI. No scleral icterus. No conjunctival pallor. Normocephalic, atraumatic. No pharyngeal erythema. No thyromegaly. CARDIOVASCULAR: S1 and S2 present. No murmurs, rubs, or gallops. PULMONARY: Chest is clear to auscultation, no wheezing or crackles. ABDOMEN: Soft, nontender, nondistended, normoactive bowel sounds. No palpable organomegaly. MUSCULOSKELETAL: No joint swelling or deformity. EXTREMITIES: No cyanosis, clubbing, or pedal edema. NEUROLOGICAL: Gross neurological examination did not reveal any focal deficits. SKIN: No rashes. Dictation was produced using [employer] dictation software. please excuse any grammatical, word or spelling errors. Patient Condition at Discharge: Fair Plan - Discharge Summary Discharge Rx Participant: No New Discharge Prescriptions: New Pantoprazole [Protonix] 40 mg PO AC-BRKFST 30 Days #30 tab Metoprolol Tartrate [Lopressor] 50 mg PO BID-W/MEALS 30 Days #60 tab Ranolazine [Ranexa] 500 mg PO Q12HR #60 tab Continue Isosorbide Mononitrate ER [Imdur] 90 mg PO DAILY FLUoxetine HCL [PROzac] 40 mg PO DAILY Nitroglycerin Sl Tabs [Nitrostat] 0.4 mg SL Q5M PRN PRN Reason: Chest Pain rOPINIRole HCL [Requip] 0.5 mg PO TID Ipratropium-Albuterol Nebulize [Duoneb 0.5 mg-3 mg/3 ml Soln] 3 ml INHALATION RT-QID 30 Days #120 each Azelastine HCl [Astelin Nasal [place]] 1 spr EA NOSTRIL BID FLUoxetine HCL [PROzac] 20 mg PO DAILY Losartan [Cozaar] 25 mg PO DAILY Simethicone Chew [Mylicon Chew] 40 mg PO QID #90 tab Famotidine [Pepcid] 20 mg PO HS PRN PRN Reason: Gi Upset Ezetimibe [Zetia] 10 mg PO DAILY Discontinued Metoprolol Tartrate [Lopressor] 25 mg PO BID-W/MEALS Discharge Medication List FLUoxetine HCL [PROzac] 20 mg PO DAILY 04/26/22 [History] FLUoxetine HCL [PROzac] 40 mg PO DAILY 04/26/22 [History] Isosorbide Mononitrate ER [Imdur] 90 mg PO DAILY 04/26/22 [History] Nitroglycerin Sl Tabs [Nitrostat] 0.4 mg SL Q5M PRN 04/26/22 [History] rOPINIRole HCL [Requip] 0.5 mg PO TID 04/26/22 [History] Ipratropium-Albuterol Nebulize [Duoneb 0.5 mg-3 mg/3 ml Soln] 3 ml INHALATION RT-QID 30 Days #120 each 01/30/23 [Rx] Azelastine HCl [Astelin Nasal [place]] 1 spr EA NOSTRIL BID 04/01/23 [History] Losartan [Cozaar] 25 mg PO DAILY 04/01/23 [History] Simethicone Chew [Mylicon Chew] 40 mg PO QID #90 tab 04/02/23 [Rx] Ezetimibe [Zetia] 10 mg PO DAILY 04/16/23 [History] Famotidine [Pepcid] 20 mg PO HS PRN 04/16/23 [History] Metoprolol Tartrate [Lopressor] 50 mg PO BID-W/MEALS 30 Days #60 tab 04/18/23 [Rx] Pantoprazole [Protonix] 40 mg PO AC-BRKFST 30 Days #30 tab 04/18/23 [Rx] Ranolazine [Ranexa] 500 mg PO Q12HR #60 tab 04/18/23 [Rx] Follow up Appointment(s)/Referral(s): Te Fonseca DO [STAFF PHYSICIAN] - 1 Week Yara Wong MD [Primary Care Provider] - 1-2 days Lucila Billy MD [STAFF PHYSICIAN] - 1 Week Discharge Disposition: HOME SELF-CARE
[2023-04-18 15:04] VITALS: BP 104/61; PULSE 59; TEMP 98.2
--- NOTE | 2023-04-18 15:42 | P.PN ---
Subjective Progress Note Date: 04/18/23 HISTORY OF PRESENT ILLNESS: This is a 63-year-old male with a past medical history significant for coronary artery disease with previous stenting in [place], hypertension, hyper lipidemia, COPD on home oxygen, and chronic chest pain. Patient follows in the office with Dr. Fonseca. We have been asked to see the patient in consultation for chest pain. Patient examined at the bedside. Patient presented to the hospital with a chief complaint of chest discomfort. Patient states he was throwing up at home and having heartburn symptoms. He denies having any shortness of breath at home. He does report having a dry cough. He states that he checked his blood pressure yesterday and it was elevated however the patient was in pain and having episodes of emesis at that time. His blood pressure has been stable since coming to the hospital. He states that he took nitro at home which relieved his symptoms. * EKG reveals sinus mechanism with no signs of acute ischemia * Chest xray COPD changes. No acute cardiopulmonary process * Most recent echocardiogram obtained in November 2022 revealing ejection fraction 55-60%, mild TR with no evidence of pulmonary hypertension, and trace to mild MR * Cardiac catheterization history: June 2022 revealing mild coronary artery disease including 20-30% circumflex and 10-20% LAD stenosis with patent nondominant RCA stenting. Mildly elevated left sided filling pressures. 04/18/2023 He reports feeling nausea this am. Heartburn is better. He still has left chest pain 07/01. He has occasional shortness of breath and is on [place] O2. PHYSICAL EXAM: VITAL SIGNS: Reviewed. GENERAL: Well-developed in no acute distress. HEENT: Head is normocephalic. Pupils are equal, round. Sclerae anicteric. Mucous membranes of the mouth are moist. Neck supple. No JVD or thyromegaly LUNGS: Respirations even and unlabored. Lungs with expiratory wheezing noted HEART: Regular rate and rhythm. S1 and S2 heard. ABDOMEN: Soft. Nondistended. Nontender. EXTREMITIES: Normal range of motion. No clubbing or cyanosis. Peripheral pulses intact. No lower extremity edema NEUROLOGIC: Awake and alert. Oriented x 3. ASSESSMENT: Nausea and vomiting with symptoms of heartburn Chest pain, atypical, troponin negative 3 Coronary artery disease with previous stenting Hypertension Hyperlipidemia COPD on home oxygen PLAN: An acute coronary event has been ruled out. Symptoms maybe related to microvascular dysfunction with REN 2 flow noted on LAD. Resume home cardiac medications Ranexa 500mg po BID Protonix 40 mg daily daily, try Pepto PRN No need to obtain echocardiogram Patient may benefit from GI workup, he is to follow up with Dr. Mariajose GLOVER Advised on healthy diet Stable from a cardiac perspective Patient follow-up post discharge with Dr. Fonseca Nurse practitioner note has been reviewed by physician. Signing provider agrees with the documented findings, assessment, and plan of care. Objective - Vital Signs Vital signs: Vital Signs Temp 97.6 F 04/18/23 07:00 Pulse 68 04/18/23 08:14 Resp 16 04/18/23 07:00 BP 108/68 04/18/23 07:00 Pulse Ox 97 04/18/23 07:00 FiO2 Intake & Output 04/17/23 04/18/23 04/18/23 18:59 06:59 18:59 Other: Voiding Method Toilet Toilet # Voids 3 2 - Labs CBC & Chem 7: 04/16/23 12:14 04/16/23 12:14 Labs: Abnormal Lab Results - Last 24 Hours (Table) 04/17/23 Range/Units 10:09 D-Dimer 1.16 H (<0.60) mg/L FEU
== END 2023-04-18 15:48 | disposition home or self-care (01) ==
LOC: EC 12:03 → 6NMEDSUR 14:22
PROVIDERS: ADMIT Internal Medicine; ATTEND Internal Medicine
DX: R07.89 Other chest pain (principal); J44.9 Chronic obstructive pulmonary disease, unspecified; K21.9 Gastro-esophageal reflux disease without esophagitis; I08.1 Rheumatic disorders of both mitral and tricuspid valves; I10 Essential (primary) hypertension; E11.9 Type 2 diabetes mellitus without complications; E78.5 Hyperlipidemia, unspecified; I25.10 Atherosclerotic heart disease of native coronary artery without angina pectoris; G89.29 Other chronic pain; I25.2 Old myocardial infarction; M19.90 Unspecified osteoarthritis, unspecified site; F41.9 Anxiety disorder, unspecified; G93.9 Disorder of brain, unspecified; H54.62 Unqualified visual loss, left eye, normal vision right eye; R11.2 Nausea with vomiting, unspecified; E66.9 Obesity, unspecified; Z68.29 Body mass index [BMI] 29.0-29.9, adult; Z79.51 Long term (current) use of inhaled steroids; Z79.82 Long term (current) use of aspirin; Z79.899 Other long term (current) drug therapy; Z91.010 Allergy to peanuts; Z88.5 Allergy status to narcotic agent; Z95.5 Presence of coronary angioplasty implant and graft; Z86.73 Personal history of transient ischemic attack (TIA), and cerebral infarction without residual deficits; Z86.16 Personal history of COVID-19; Z87.01 Personal history of pneumonia (recurrent); Z87.891 Personal history of nicotine dependence; Z82.49 Family history of ischemic heart disease and other diseases of the circulatory system
CPT/HCPCS: 96376; 96374; 96375; 99285; 36415; 94640 ×5; 93005; 85379; 83880; 80061; 80053; 83690; 83735; 84484; 85025; 85610; 85730; 71046; 71275; G0378 ×3; J2270; J2405 ×2; Q9967

== ENCOUNTER 2023-05-07 03:44 | Observation (INO) | payer MEDICARE, OTHER ==
[2023-05-07 04:51] LABS: Basophils # (A) 0.1 k/uL (0-0.2); Basophils % (A) 1 %; Eosinophils # (A) 0.2 k/uL (0-0.7); Eosinophils % (A) 3 %; HCT 42.6 % (39.0-53.0); HGB 14.5 gm/dL (13.0-17.5); Lymphocytes % (A) 27 %; MCH 29.2 pg (25.0-35.0); MCV 85.9 fL (80.0-100.0); Mean Platelet Volume 7.5; Monocytes # (A) 0.6 k/uL (0-1.0); Monocytes % (A) 9 %; Neutrophils # (A) 4.1 k/uL (1.3-7.7); Neutrophils % (A) 57 %; Platelet Count 263 k/uL (150-450); RBC 4.96 m/uL (4.30-5.90); RDW 14.2 % (11.5-15.5); WBC 7.2 k/uL (3.8-10.6)
[2023-05-07 04:56] LABS: INR 0.9 (<1.2); Prothrombin Time 10.2 sec (10.0-12.5)
--- NOTE | 2023-05-07 05:03 | ED ---
Chest Pain HPI - General Chief Complaint: Chest Pain Stated Complaint: Chest Pain Time Seen by Provider: 05/07/23 04:00 Source: patient, EMS Mode of arrival: EMS Limitations: no limitations - History of Present Illness Initial Comments: 63-year-old male with past medical history of COPD, hypertension, hyperlipidemia, [place] who presents to the emergency department reporting chest pain. States that he awoke from sleep with chest pain at around 3 AM. The pain radiated into his left arm and made him feel short of breath. He does wear 4 L of oxygen while asleep due to history of COPD. Patient admitted to some nausea without vomiting. He did take a few nitros at home and states that it did alleviate his pain for a short period of time. Upon arrival the patient had been given 3 nitro, 324 mg of aspirin and 50 ug of fentanyl. Currently states that the pain is 2 out of 10. He does have a history of coronary disease with 2 stents. Reports that as of recently he has had significant nausea with inability to hold down any food or drink. He is currently awaiting evaluation by Dr. Nunez for these complaints. Patient denies any fevers chills or cough. No other alleviating, precipitating or modifying factors - Related Data Home Medications Medication Instructions Recorded Confirmed FLUoxetine HCL [PROzac] 20 mg PO DAILY 04/26/22 04/16/23 FLUoxetine HCL [PROzac] 40 mg PO DAILY 04/26/22 04/16/23 Isosorbide Mononitrate ER [Imdur] 90 mg PO DAILY 04/26/22 04/16/23 Nitroglycerin Sl Tabs [Nitrostat] 0.4 mg SL Q5M PRN 04/26/22 04/16/23 rOPINIRole HCL [Requip] 0.5 mg PO TID 04/26/22 04/16/23 Azelastine HCl [Astelin Nasal 1 spr EA NOSTRIL BID 04/01/23 04/16/23 [place]] Losartan [Cozaar] 25 mg PO DAILY 04/01/23 04/16/23 Ezetimibe [Zetia] 10 mg PO DAILY 04/16/23 04/16/23 Famotidine [Pepcid] 20 mg PO HS PRN 04/16/23 04/16/23 Previous Rx's Medication Instructions Recorded Ipratropium-Albuterol Nebulize 3 ml INHALATION RT-QID 30 Days 01/30/23 [Duoneb 0.5 mg-3 mg/3 ml Soln] #120 each Simethicone Chew [Mylicon Chew] 40 mg PO QID #90 tab 04/02/23 Metoprolol Tartrate [Lopressor] 50 mg PO BID-W/MEALS 30 Days #60 04/18/23 tab Pantoprazole [Protonix] 40 mg PO AC-BRKFST 30 Days #30 tab 04/18/23 Ranolazine [Ranexa] 500 mg PO Q12HR #60 tab 04/18/23 Allergies Allergy/AdvReac Type Severity Reaction Status Date / Time codeine Allergy Anaphylaxis Verified 05/07/23 03:50 peanut Allergy Migraine/Allergy Verified 05/07/23 03:50 testing Review of Systems ROS Statement: Those systems with pertinent positive or pertinent negative responses have been documented in the HPI. ROS Other: All systems not noted in ROS Statement are negative. Past Medical History Past Medical History: Chest Pain / Angina, COPD, CVA/TIA, GERD/Reflux, Hyperlipidemia, Hypertension, Myocardial Infarction ([place]), Osteoarthritis (OA), Pneumonia Additional Past Medical History / Comment(s): COVID April 2022 and December 2022, multiple MIs, TIA, peripheral vision loss of left eye, white mass on brain in MRI, wears o2 at home 3L at night prn, heart monitor from cardiology office r/t tachycardia Last Myocardial Infarction Date:: 2020 History of Any Multi-Drug Resistant Organisms: None Reported Past Surgical History: Heart Catheterization With Stent Additional Past Surgical History / Comment(s): 2 cardiac stents Past Anesthesia/Blood Transfusion Reactions: No Reported Reaction Date of Last Stent Placement:: 2020 Past Psychological History: Anxiety Smoking Status: Former smoker Past Alcohol Use History: None Reported Past Drug Use History: None Reported - Past Family History Father Family Medical History: Myocardial Infarction ([place]) Additional Family Medical History / Comment(s): from [place] Brother(s) Family Medical History: Myocardial Infarction ([place]) Additional Family Medical History / Comment(s): from [place] General Exam Limitations: no limitations General appearance: alert, in no apparent distress Head exam: Present: atraumatic, normocephalic, normal inspection Eye exam: Present: normal appearance, PERRL, EOMI. Absent: scleral icterus, conjunctival injection, periorbital swelling ENT exam: Present: normal exam, mucous membranes moist Neck exam: Present: normal inspection. Absent: tenderness, meningismus, lymphadenopathy Respiratory exam: Present: normal lung sounds bilaterally. Absent: respiratory distress, wheezes, rales, rhonchi, stridor Cardiovascular Exam: Present: regular rate, normal rhythm, normal heart sounds. Absent: systolic murmur, diastolic murmur, rubs, gallop, clicks GI/Abdominal exam: Present: soft, normal bowel sounds. Absent: distended, tenderness, guarding, rebound, rigid Extremities exam: Present: normal inspection, full ROM, normal capillary refill. Absent: tenderness, pedal edema, joint swelling, calf tenderness Back exam: Present: normal inspection Neurological exam: Present: alert, oriented X3, CN II-XII intact Psychiatric exam: Present: normal affect, normal mood Skin exam: Present: warm, dry, intact, normal color. Absent: rash Course Vital Signs 05/07/23 05/07/23 03:45 05:00 Temperature 97.8 F Pulse Rate 67 60 Respiratory 24 22 Rate Blood Pressure 183/86 136/63 O2 Sat by Pulse 94 L 97 Oximetry Chest Pain MDM - MDM Was pt. sent in by a medical professional or institution (, PA, [employer] ARCHITECT, urgent care, hospital, or [facility]...) When possible be specific @ -No Did you speak to anyone other than the patient for history (EMS, parent, family, police, friend...)? What history was obtained from this source @ -Spoke with EMS Did you review nursing and triage notes (agree or disagree)? Why? @ -I reviewed and agree with nursing and triage notes Were old charts reviewed (outside hosp., previous admission, EMS record, old EKG, old radiological studies, urgent care reports/EKG's, [facility] records)? Report findings @ -I reviewed last hospitalization record for the patient was hospitalized on April 16 for same complaint Differential Diagnosis (chest pain, altered mental status, abdominal pain women, abdominal pain men, vaginal bleeding, weakness, fever, dyspnea, syncope, headache, dizziness, GI bleed, back pain, seizure, CVA, palpatations, mental health, musculoskeletal)? @ -Differential Chest Pain: Stable Angina, Unstable Angina, STEMI, NSTEMI Aortic Dissection, Pneumothorax, Musculoskeletal, Esophageal Spasm GERD, Cholecystitis, Pancreatitis, Zoster, this is not meant to be an all-inclusive list. EKG interpreted by me (3pts min.). @ -Yes and demonstrates sinus rhythm with a rate of 64. MO interval 161. QRS 98. QTC 393. No acute ST segment elevations or depressions X-rays interpreted by me (1pt min.). @ -Yes an demonstrates no acute process CT interpreted by me (1pt min.). @ -None done U/S interpreted by me (1pt. min.). @ -None done What testing was considered but not performed or refused? (CT, X-rays, U/S, labs)? Why? @ -None What meds were considered but not given or refused? Why? @ -None Did you discuss the management of the patient with other professionals (professionals i.e. , PA, [facility] ARCHITECT, lab, RT, psych nurse, socially responsible investment adviser, supervisor motor vehicle assembly, teacher, multisensor intelligence officer, rn case mgr)? Give summary @ -Spoke with Meliton from [facility] for admission Was smoking cessation discussed for >3mins.? @ -No Was critical care preformed (if so, how long)? @ -No Were there social determinants of health that impacted care today? How? (Homelessness, low income, unemployed, alcoholism, drug addiction, transportation, low edu. Level, literacy, decrease access to med. care, longterm, rehab)? @ -No Was there de-escalation of care discussed even if they declined (Discuss DNR or withdrawal of care, Hospice)? DNR status @ -No What co-morbidities impacted this encounter? (DM, HTN, Smoking, COPD, CAD, Cancer, CVA, ARF, Chemo, Hep., AIDS, mental health diagnosis, sleep apnea, morbid obesity)? @ -ascad, hiatal hernia Was patient admitted / discharged? Hospital course, mention meds given and route, prescriptions, significant lab abnormalities, going to OR and other pertinent info. @ -Admitted. Upon arrival patient was placed into room 1. A thorough history and physical exam was performed. 12-lead EKG is obtained. Laboratory studies are conducted. Patient remained on continuous pulse ox and cardiac monitoring. Laboratory studies are conducted. Chest x-rays performed. Patient does have return of his pain and therefore is given a dose of morphine. Repeat 12-lead EKG is performed. Upon return the results the patient is admitted for serial troponins and cardiac evaluation. Spoke with Meliton from [facility] who agreed to admit the patient Undiagnosed new problem with uncertain prognosis? @ -No Drug Therapy requiring intensive monitoring for toxicity (Heparin, Nitro, Insul in, Cardizem)? @ -No Were any procedures done? @ -No Diagnosis/symptom? @ -Acute chest pain, possible ACS Acute, or Chronic, or Acute on Chronic? @ -Acute Uncomplicated (without systemic symptoms) or Complicated (systemic symptoms)? @ -Complicated Side effects of treatment? @ -No Exacerbation, Progression, or Severe Exacerbation? @ -No Poses a threat to life or bodily function? How? (Chest pain, [place], [place], pneumonia, PE, COPD, DKA, ARF, appy, cholecystitis, CVA, Diverticulitis, Homicidal, Suicidal, threat to staff... and all critical care pts) @ -Yes patient has chest pain Disposition Clinical Impression: Chest pain Disposition: ADMITTED IP TO THIS [facility] Condition: Stable Is patient prescribed a controlled substance at d/c from ED?: No Referrals: Yara Wong MD [Primary Care Provider] - 1-2 days Time of Disposition: 05:54 Decision to Admit Reason: Admit from EC Decision Date: 05/07/23 Decision Time: 05:55
--- NOTE | 2023-05-07 05:09 | XR ---
EXAM: XR Chest, 2 Views CLINICAL HISTORY: ITS.REASON XR Reason: Chest Pain TECHNIQUE: Frontal and lateral views of the chest. COMPARISON: 04/17/2023 FINDINGS: Lungs: Unremarkable. No consolidation. Pleural space: Unremarkable. No pneumothorax. Heart: Unremarkable. No cardiomegaly. Mediastinum: Unremarkable. Normal mediastinal contour. Bones/joints: Unremarkable. No acute fracture. IMPRESSION: Normal chest x-rays.
[2023-05-07 05:12] LABS: ALT 29 U/L (4-49); AST 25 U/L (17-59); African American GFR (CKD) >90 (>60 ml/min/1.73 sqM); Albumin 3.8 g/dL (3.5-5.0); Alkaline Phosphatase 94 U/L (38-126); Anion Gap 10 mmol/L; Blood Urea Nitrogen 12 mg/dL (9-20); Calcium 8.7 mg/dL (8.4-10.2); Carbon Dioxide 23 mmol/L (22-30); Chloride 107 mmol/L (98-107); Glucose 106 mg/dL (74-99); Magnesium 1.8 mg/dL (1.6-2.3); Non-African American GFR(CKD) >90 (>60 ml/min/1.73 sqM); Sodium 140 mmol/L (137-145); Total Bilirubin 0.4 mg/dL (0.2-1.3); Total Protein 6.5 g/dL (6.3-8.2)
[2023-05-07] MEDS ORDERED: MORPHINE SULFATE 4 MG/ML SYRINGE IVP STA (05:54)
[2023-05-07] MEDS ORDERED: NALOXONE 0.4 MG/ML 1 ML VIAL IV PRN (06:07)
[2023-05-07] MEDS ORDERED: NITROGLYCERIN OINT 1 INCH/GM PACKET TOPICAL STA (07:25)
[2023-05-07] MEDS: PANTOPRAZOLE 40 MG/10 ML VIAL IV SCH (08:22)
[2023-05-07] MEDS ORDERED: HEPARIN SODIUM 1,000 UN/ML (10ML VL) IV PRN (08:57)
[2023-05-07] MEDS ORDERED: HEPARIN SODIUM 1,000 UN/ML (10ML VL) IV ONE (08:57)
[2023-05-07] MEDS ORDERED: HYDROmorphone 0.5 MG/0.5 ML SYRINGE IVP STA (08:58)
[2023-05-07] MEDS: EZETIMIBE 10 MG TAB PO SCH (10:16)
[2023-05-07] MEDS: METOPROLOL TARTRATE 50 MG TAB PO SCH ×2 (10:16→17:22)
[2023-05-07] MEDS: LOSARTAN 25 MG TAB PO SCH (10:16)
[2023-05-07] MEDS: ISOSORBIDE MONONITRATE ER 30 MG TAB.ER.24H PO SCH (10:16)
[2023-05-07] MEDS: amLODIPine 5 MG TAB PO SCH (10:16)
[2023-05-07] MEDS: RANOLAZINE 500 MG TAB.ER.12H PO SCH ×2 (10:16→20:06)
[2023-05-07] MEDS: HEPARIN SOD,PORK IN 0.45% NACL 25,000 UNIT in 0.45% NACL 1 250ML.BAG IV SCH (10:29)
[2023-05-07] MEDS ORDERED: FAMOTIDINE 20 MG TAB PO PRN (10:33)
[2023-05-07 11:06] LABS: Partial Thromboplastin Time 23.6 sec (22.0-30.0)
[2023-05-07] MEDS: IPRATROPIUM-ALBUTEROL 3 ML NEB INHALATION SCH ×3 (11:24→21:41)
--- NOTE | 2023-05-07 12:02 | P.CRDCN ---
History of Present Illness Consult date: 05/07/23 Consult reason: chest pain History of present illness: HISTORY OF PRESENT ILLNESS: This is a 63-year-old male patient of Dr. Fonseca with past medical history significant for coronary artery disease with previous stenting in [place], hypertension, hyperlipidemia, COPD on home oxygen, and chronic chest pain. We have been asked to see the patient in consultation for chest pain. Patient is seen today in the emergency center waiting for bed on the observation unit. Patient is complaining of vomiting that has been going on for the past 2 weeks, chest pain with deep breathing and tenderness to the chest wall, heartburn. Blood pressure 181/93. Patient has not been started on his home cardiac medications. EKG reveals sinus mechanism with no signs of acute ischemia Chest xray No acute cardiopulmonary process Most recent echocardiogram obtained in November 2022 revealing ejection fraction 55- 60%, mild TR with no evidence of pulmonary hypertension, and trace to mild MR CBC normal. INR 0.9. Electrolytes and renal function normal. Blood sugar 106. Troponin negative 2. Liver function tests normal. Magnesium 1.8. Cardiac catheterization history: June 2022 revealing mild coronary artery disease including 2030% circumflex and 10-20% LAD stenosis with patent nondominant RCA stenting. Mildly elevated left sided filling pressures. Home cardiac medications: Zetia 10 mg daily, Imdur 90 mg daily, losartan 25 mg daily, Lopressor 50 mg twice daily, Nitrostat as needed, Ranexa 500 mg every 12 hours. REVIEW OF SYSTEMS: At the time of my exam: CONSTITUTIONAL: Denies fever or chills. HEENT: Denies blurred vision, vision changes, or eye pain. Denies hemoptysis CARDIOVASCULAR: + chest pain. Denies orthopnea. Denies PND. Denies palpitations RESPIRATORY: Denies shortness of breath. GASTROINTESTINAL: Denies abdominal pain. Denies nausea or vomiting. HEMATOLOGIC: Denies bleeding disorders. GENITOURINARY: Denies any blood in urine. SKIN: Denies pruitis. Denies rash. PHYSICAL EXAM: VITAL SIGNS: Reviewed. GENERAL: Well-developed in no acute distress. HEENT: Head is normocephalic. Pupils are equal, round. Sclerae anicteric. Mucous membranes of the mouth are moist. Neck supple. No JVD or thyromegaly LUNGS: Respirations even and unlabored. Lungs with expiratory wheezing noted HEART: Regular rate and rhythm. S1 and S2 heard. ABDOMEN: Soft. Nondistended. Nontender. EXTREMITIES: Normal range of motion. No clubbing or cyanosis. Peripheral pulses intact. No lower extremity edema NEUROLOGIC: Awake and alert. Oriented x 3. ASSESSMENT: Vomiting x 2 weekswith symptoms of heartburn Chest pain, atypical, troponin negative 2 Coronary artery disease with previous stenting Hypertension Hyperlipidemia COPD with chronic hypoxic respiratory failure on home oxygen PLAN: Resume home cardiac medications Remove Nitropaste and discontinue Dilaudid 0.5 mg IV 1 Start patient on amlodipine 5 mg daily Start patient on heparin drip and obtain d-dimer stat No need to obtain echocardiogram D-dimer is elevated, attending to address At the time of discharge, patient will follow up with Dr. Fonseca Nurse practitioner note has been reviewed by physician. Signing provider agrees with the documented findings, assessment, and plan of care. Past Medical History Past Medical History: Chest Pain / Angina, COPD, CVA/TIA, GERD/Reflux, Hyperlipidemia, Hypertension, Myocardial Infarction ([place]), Osteoarthritis (OA), Pneumonia Additional Past Medical History / Comment(s): COVID April 2022 and December 2022, multiple MIs, TIA, peripheral vision loss of left eye, white mass on brain in MRI, wears o2 at home 3L at night prn, heart monitor from cardiology office r/t tachycardia Last Myocardial Infarction Date:: 2020 History of Any Multi-Drug Resistant Organisms: None Reported Past Surgical History: Heart Catheterization With Stent Additional Past Surgical History / Comment(s): 2 cardiac stents Past Anesthesia/Blood Transfusion Reactions: No Reported Reaction Date of Last Stent Placement:: 2020 Past Psychological History: Anxiety Smoking Status: Former smoker Past Alcohol Use History: None Reported Past Drug Use History: None Reported - Past Family History Father Family Medical History: Myocardial Infarction ([place]) Additional Family Medical History / Comment(s): from [place] Brother(s) Family Medical History: Myocardial Infarction ([place]) Additional Family Medical History / Comment(s): from [place] Medications and Allergies Home Medications Medication Instructions Recorded Confirmed Type FLUoxetine HCL [PROzac] 20 mg PO DAILY 04/26/22 05/07/23 History FLUoxetine HCL [PROzac] 40 mg PO DAILY 04/26/22 05/07/23 History Isosorbide Mononitrate ER [Imdur] 90 mg PO DAILY 04/26/22 05/07/23 History Nitroglycerin Sl Tabs [Nitrostat] 0.4 mg SL Q5M PRN 04/26/22 05/07/23 History rOPINIRole HCL [Requip] 0.5 mg PO TID 04/26/22 05/07/23 History Ipratropium-Albuterol Nebulize 3 ml INHALATION RT-QID 30 Days 01/30/23 05/07/23 Rx [Duoneb 0.5 mg-3 mg/3 ml Soln] #120 each Azelastine HCl [Astelin Nasal 1 spr EA NOSTRIL BID 04/01/23 05/07/23 History [place]] Losartan [Cozaar] 25 mg PO DAILY 04/01/23 05/07/23 History Simethicone Chew [Mylicon Chew] 40 mg PO QID #90 tab 04/02/23 05/07/23 Rx Ezetimibe [Zetia] 10 mg PO DAILY 04/16/23 05/07/23 History Famotidine [Pepcid] 20 mg PO HS PRN 04/16/23 05/07/23 History Metoprolol Tartrate [Lopressor] 50 mg PO BID-W/MEALS 30 Days #60 04/18/23 Rx tab Pantoprazole [Protonix] 40 mg PO AC-BRKFST 30 Days #30 tab 04/18/23 05/07/23 Rx Ranolazine [Ranexa] 500 mg PO Q12HR #60 tab 04/18/23 05/07/23 Rx Sucralfate [Carafate] 1 gm PO DIRECTED 05/07/23 05/07/23 History Allergies Allergy/AdvReac Type Severity Reaction Status Date / Time codeine Allergy Anaphylaxis Verified 05/07/23 06:42 peanut Allergy Migraine/Allergy Verified 05/07/23 06:42 testing Physical Exam Vitals: Vital Signs Temp Pulse Resp BP Pulse Ox 05/07/23 08:21 59 L 18 160/80 98 05/07/23 07:00 98.0 F 64 18 149/68 98 05/07/23 06:00 63 22 119/83 97 05/07/23 05:00 60 22 136/63 97 05/07/23 03:45 97.8 F 67 24 183/86 94 L Intake and Output 05/06/23 05/07/23 05/07/23 22:59 06:59 14:59 Other: Weight 83.915 kg Results 05/07/23 03:49 05/07/23 03:49 Cardiac Enzymes 05/07/23 05/07/23 05/07/23 Range/Units 03:49 03:49 08:07 AST 25 (17-59) U/L Troponin I <0.012 <0.012 (0.000-0.034) ng/mL Coagulation 05/07/23 Range/Units 03:49 PT 10.2 (10.0-12.5) sec APTT 23.0 (22.0-30.0) sec CBC 05/07/23 Range/Units 03:49 WBC 7.2 (3.8-10.6) k/uL RBC 4.96 (4.30-5.90) m/uL Hgb 14.5 (13.0-17.5) gm/dL Hct 42.6 (39.0-53.0) % Plt Count 263 (150-450) k/uL Comprehensive Metabolic Panel 05/07/23 Range/Units 03:49 Sodium 140 (137-145) mmol/L Potassium 4.0 (3.5-5.1) mmol/L Chloride 107 (98-107) mmol/L Carbon Dioxide 23 (22-30) mmol/L BUN 12 (9-20) mg/dL Creatinine 0.89 (0.66-1.25) mg/dL Glucose 106 H (74-99) mg/dL Calcium 8.7 (8.4-10.2) mg/dL AST 25 (17-59) U/L ALT 29 (4-49) U/L Alkaline Phosphatase 94 (38-126) U/L Total Protein 6.5 (6.3-8.2) g/dL Albumin 3.8 (3.5-5.0) g/dL Current Medications Generic Name Dose Route Start Last Admin Trade Name Freq PRN Reason Stop Dose Admin Naloxone HCl 0.2 mg 05/07/23 06:07 Naloxone 0.4 Mg/Ml 1 Ml Vial IV Q2M PRN Opioid Reversal Pantoprazole Sodium 40 mg 05/07/23 09:00 05/07/23 08:22 Pantoprazole 40 Mg/10 Ml Vial IV 40 mg DAILY MAIKEL Administration Intake and Output 05/06/23 05/07/23 05/07/23 22:59 06:59 14:59 Other: Weight 83.915 kg 05/07/23 03:49 05/07/23 03:49
[2023-05-07] MEDS: SIMETHICONE 80 MG CHEWABLE PO SCH ×3 (12:28→20:06)
[2023-05-07] MEDS ORDERED: IOPAMIDOL CONTRAST (ORAL USE) VIAL PO PRN (12:33)
--- NOTE | 2023-05-07 12:35 | P.HPIM ---
History of Present Illness H&P Date: 05/07/23 Chief Complaint: Chest pain * 63-year-old patient with past medical history significant for COPD, chronic hypoxic respiratory failure, diabetes mellitus, hypertension, history of coronary artery disease, is admitted to the emergency department with complains of chest pain. Patient states he woke up from sleep with mid sternal chest pain, radiating to left arm associated with shortness of breath. Patient does have history of COPD and does with 4 L of oxygen at baseline. This was associated with nausea without vomiting. Patient took nitroglycerin at home which did improve his chest discomfort however chest pain recur 8 upon arrival to ED patient was given aspirin and nitroglycerin as well with improvement in chest pain. Patient does have history of coronary artery disease and PCI he was recently admitted in March with chest pain and seen by cardiology * Workup initiated in ER included an EKG which showed sinus rhythm no significant ST segment changes, initial troponin obtained in ED was negative * Serum chemistry obtained showed a INR of 0.9 normal CBC and normal electrolyte panel liver profile within normal limits * A chest x-ray obtained on presentation was within normal limits * Patient was started on IV heparin in ED secondary to unstable angina with consultation from cardiology REVIEW OF SYSTEMS: Chest pain CONSTITUTIONAL: No fever, no malaise, no fatigue. HEENT: No recent visual problems or hearing problems. Denied any sore throat. CARDIOVASCULAR: No chest pain, orthopnea, PND, no palpitations, no syncope. PULMONARY: No shortness of breath, no cough, no hemoptysis. GASTROINTESTINAL: No diarrhea, no nausea, no vomiting, no abdominal pain. NEUROLOGICAL: No headaches, no weakness, no numbness. HEMATOLOGICAL: Denies any bleeding or petechiae. GENITOURINARY: Denies any burning micturition, frequency, or urgency. MUSCULOSKELETAL/RHEUMATOLOGICAL: Denies any joint pain, swelling, or any muscle pain. ENDOCRINE: Denies any polyuria or polydipsia. PHYSICAL EXAMINATION: GENERAL: The patient is alert and oriented x3, not in any acute distress. Well developed, well nourished. HEENT: Pupils are round and equally reacting to light. EOMI. No scleral icterus. No conjunctival pallor. Normocephalic, atraumatic. No pharyngeal erythema. No thyromegaly. CARDIOVASCULAR: S1 and S2 present. No murmurs, rubs, or gallops. PULMONARY: Chest is clear to auscultation, no wheezing or crackles. ABDOMEN: Soft, nontender, nondistended, normoactive bowel sounds. No palpable organomegaly. MUSCULOSKELETAL: No joint swelling or deformity. EXTREMITIES: No cyanosis, clubbing, or pedal edema. NEUROLOGICAL: Gross neurological examination did not reveal any focal deficits. SKIN: No rashes. Past Medical History Past Medical History: Chest Pain / Angina, COPD, CVA/TIA, GERD/Reflux, Hyperlipidemia, Hypertension, Myocardial Infarction ([place]), Osteoarthritis (OA), Pneumonia Additional Past Medical History / Comment(s): COVID April 2022 and December 2022, multiple MIs, TIA, peripheral vision loss of left eye, white mass on brain in MRI, wears o2 at home 3L at night prn, heart monitor from cardiology office r/t tachycardia Last Myocardial Infarction Date:: 2020 History of Any Multi-Drug Resistant Organisms: None Reported Past Surgical History: Heart Catheterization With Stent Additional Past Surgical History / Comment(s): 2 cardiac stents Past Anesthesia/Blood Transfusion Reactions: No Reported Reaction Date of Last Stent Placement:: 2020 Past Psychological History: Anxiety Smoking Status: Former smoker Past Alcohol Use History: None Reported Past Drug Use History: None Reported - Past Family History Father Family Medical History: Myocardial Infarction ([place]) Additional Family Medical History / Comment(s): from [place] Brother(s) Family Medical History: Myocardial Infarction ([place]) Additional Family Medical History / Comment(s): from [place] Medications and Allergies Home Medications Medication Instructions Recorded Confirmed Type FLUoxetine HCL [PROzac] 20 mg PO DAILY 04/26/22 05/07/23 History FLUoxetine HCL [PROzac] 40 mg PO DAILY 04/26/22 05/07/23 History Isosorbide Mononitrate ER [Imdur] 90 mg PO DAILY 04/26/22 05/07/23 History Nitroglycerin Sl Tabs [Nitrostat] 0.4 mg SL Q5M PRN 04/26/22 05/07/23 History rOPINIRole HCL [Requip] 0.5 mg PO TID 04/26/22 05/07/23 History Ipratropium-Albuterol Nebulize 3 ml INHALATION RT-QID 30 Days 01/30/23 05/07/23 Rx [Duoneb 0.5 mg-3 mg/3 ml Soln] #120 each Azelastine HCl [Astelin Nasal 1 spr EA NOSTRIL BID 04/01/23 05/07/23 History [place]] Losartan [Cozaar] 25 mg PO DAILY 04/01/23 05/07/23 History Simethicone Chew [Mylicon Chew] 40 mg PO QID #90 tab 04/02/23 05/07/23 Rx Ezetimibe [Zetia] 10 mg PO DAILY 04/16/23 05/07/23 History Famotidine [Pepcid] 20 mg PO HS PRN 04/16/23 05/07/23 History Metoprolol Tartrate [Lopressor] 50 mg PO BID-W/MEALS 30 Days #60 04/18/23 05/07/23 Rx tab Pantoprazole [Protonix] 40 mg PO AC-BRKFST 30 Days #30 tab 04/18/23 05/07/23 Rx Ranolazine [Ranexa] 500 mg PO Q12HR #60 tab 04/18/23 05/07/23 Rx Sucralfate [Carafate] 1 gm PO DIRECTED 05/07/23 05/07/23 History Allergies Allergy/AdvReac Type Severity Reaction Status Date / Time codeine Allergy Anaphylaxis Verified 05/07/23 06:42 peanut Allergy Migraine/Allergy Verified 05/07/23 06:42 testing Physical Exam Vitals: Vital Signs Temp Pulse Resp BP Pulse Ox 05/07/23 10:15 63 18 142/100 97 05/07/23 09:15 56 L 18 181/93 96 05/07/23 08:21 59 L 18 160/80 98 05/07/23 07:00 98.0 F 64 18 149/68 98 05/07/23 06:00 63 22 119/83 97 05/07/23 05:00 60 22 136/63 97 05/07/23 03:45 97.8 F 67 24 183/86 94 L Intake and Output 05/06/23 05/07/23 05/07/23 22:59 06:59 14:59 Other: Weight 83.915 kg Results CBC & Chem 7: 05/07/23 03:49 05/07/23 03:49 Labs: Abnormal Lab Results - Last 24 Hours (Table) 05/07/23 Range/Units 03:49 Glucose 106 H (74-99) mg/dL Assessment and Plan Assessment: Assessment and plan Chest pain with history of coronary artery disease unstable angina Essential hypertension Dyslipidemia Gastroesophageal reflux disease with hernia history Chronic hypoxic respiratory failure with history of COPD * In regards to chest pain, serial troponins ordered, cardiology consulted continue patient on IV heparin, optimize medical management * In regards to history of coronary artery disease continue Imdur, Ranexa, metoprolol, losartan * In regards to chronic hypoxic respiratory failure continue patient on DuoNeb as needed continue oxygen supplementation pulmonary medicine consulted as well chest x-ray within normal limits * In regards to history of gastroesophageal reflux disease, hernia CT abdomen pelvis with oral contrast ordered * CODE STATUS is full code
[2023-05-07] MEDS: AZELASTINE 137MCG/SPRAY EA NOSTRIL SCH ×2 (14:05→21:11)
--- NOTE | 2023-05-07 14:43 | CT ---
EXAMINATION TYPE: CT angio chest DATE OF EXAM: 05/07/2023 COMPARISON: None HISTORY: Elevated D-dimer CT DLP: 2162.1 mGycm CONTRAST: CT chest with contrast and 3D reconstruction with MIP imaging is performed without and with IV Contra st, patient injected with 100 ml mL of Isovue 370. Contrast-enhanced CT of the chest was performed through the course of the pulmonary arteries with alondra g and mediastinal window settings submitted. 3D reconstruction with MIP imaging was also performed. PULMONARY ARTERIES: The pulmonary arteries and their major tributaries are patent. I do not see anderson dence for sizable filling defect to suggest pulmonary embolic process. LUNGS: Moderate centrilobular emphysema. The lungs are clear and free of infiltrate. No evidence for atelectasis. No pulmonary nodule or mass is detected. No pleural effusion. MEDIASTINUM: Thoracic aorta is of normal caliber,however, evaluation is limited given timing of the contrast bolus. If there is concern for thoracic aortic pathology consider JUSTIN. Correlate clinicall y . The heart is not enlarged. No evidence for mediastinal mass. No mediastinal lymph nodes greater than 1cm. HILAR STRUCTURES: No evidence for mass. No hilar lymph nodes greater than 1 cm. UPPER ABDOMEN: No significant abnormality is seen. IMPRESSION: 1. No evidence for Pulmonary embolism at this time.
--- NOTE | 2023-05-07 15:19 | CT ---
EXAMINATION TYPE: CT abdomen pelvis wo/w con DATE OF EXAM: 05/07/2023 COMPARISON: None HISTORY: Abdominal pain, evaluate for obstruction CT DLP: 2162.1 mGycm Automated exposure control for dose reduction was used. CONTRAST: CT scan of the abdomen pelvis is performed without and with IV Contrast, patient injected with 100 ml mL of Isovue 300. FINDINGS- LUNG BASES- bibasilar atelectasis. Coronary artery calcifications seen there is contrast within the esophagus trace of pericardial fluid. LIVER/GB- multiple subcentimeter hypodensities within the liver is too small to characterize but mo st likely related to simple cysts.. Low-attenuation in the liver suggestive of hepatic steatosis. Lob ulated margin liver associated with chronic liver disease. The gallbladder is mildly distended but no evidence of gallstones or CT evidence of cholecystitis. PANCREAS- No gross abnormality is seen. SPLEEN- No gross abnormality is seen. ADRENALS- No gross abnormality is seen. KIDNEYS/BLADDER-no hydronephrosis or nephrolithiasis. There is perinephric stranding which is nonspec ific. BOWEL- the stomach is distended. A few prominent small bowel loops in the central abdomen. No inflam matory changes surrounding the small or large bowel. Appendix is normal. LYMPH NODES- No greater than 1cm abdominal or pelvic lymph nodes are appreciated. OSSEOUS STRUCTURES- multilevel hypertrophic and degenerative changes spine. Findings are suggestive of bilateral osteonecrosis femoral head. OTHER- aorta of normal caliber. There is mild atherosclerotic changes. Small bilateral fat-containin g hernia. Prostate is normal in size but heterogeneous with calcifications in the bladder is distende d. IMPRESSION- 1. Correlate for hepatocellular disease\hepatic steatosis 2. The stomach is distended which may be transient rather than related to gastroparesis or gastric ou tlet obstruction. A few prominent small bowel loops seen in the central abdomen with no definite [place] sition point. Maybe secondary to an ileus or enteritis. A partial obstructive pattern is not excluded given there is relative reduction caliber small bowel distally.
--- NOTE | 2023-05-07 19:33 | P.CNPUL ---
History of Present Illness Consult date: 05/07/23 Reason for consult: COPD History of present illness: This is a 63-year-old mentation, known history of COPD and the patient is 02 dependent, coronary artery disease with previous coronary stenting that was done in [place], known history of hypertension hyperlipidemia, hospitalized for chest pain, nausea and emesis along with heartburn. The patient's chest pain was felt to be over the anterior pericardium, severe and he has been using n itroglycerine with variable success in relieving the pain He has had also some radiation to the LUE. Cardiology and pulmonary consultation was requested accordingly. The patient was started on IV heparin. Troponins were negative 2 and the third set showed a troponin level of 0.55. D-dimer was at 1.2.. The WBC count at 7.2, he was 14.5, normal cognition profile, normal renal function. The patient is currently on IV heparin and he is stable. He is free of pain. He has no abdominal pain and he has no distension and he is having bowel movements. In regards to COPD, the patient has severe disease with an FEV1 of 40% of predicted at baseline based on his spirometry that was done on 06/03/2022. He has been maintained on Anoro Ellipta on outpatient basis regarding his COPD. He is chronic smoker. His other comorbid conditions include hyperlipidemia hypothyroidism and previous history of left carotid artery stenosis. He was treated for an acute COPD exacerbation back in August 2022 and was involved in his care. The CT angiogram of the chest showed no evidence of any pulmonary embolism. Is consistent with COPD with centrilobular emphysema an upper lobe predominance. There is moderate centrilobular emphysema noted. The lungs are clear of any acute pulmonary infiltration. The computed tomography scan of the abdomen and pelvis was also done that showed hepatic steatosis, the stomach was distended and there are a few prominent small bowel loops in the central abdomen without evidence of any transition point of obstruction. Review of Systems CONSTITUTIONAL: Denies any recent significant weight loss or weight gain. EYES: Denies change in vision. EARS, NOSE, MOUTH, THROAT: Denies headaches, denies sore throat. CARDIOVASCULAR: Positive for chest pain, no palpitations or syncopal episodes. RESPIRATORY: Positive for shortness of breath, cough, congestion no hemoptysis. GASTROINTESTINAL: Denies change in appetite, denies abdominal pain GENITOURINARY: Denies hematuria, denies infections. MUSKULOSKELETAL: Denies pain, denies swelling. INTEGUMENTARY: Denies rash, denies eczema. NEUROLOGICAL: Denies recent memory loss, no recent seizure activity. PSYCHIATRIC: Denies anxiety, denies depression. HEMATOLOGIC/LYMPHATIC: Denies anemia, denies enlarged lymph Past Medical History Past Medical History: Chest Pain / Angina, COPD, CVA/TIA, GERD/Reflux, Hyperlipidemia, Hypertension, Myocardial Infarction ([place]), Osteoarthritis ([place]), Pneumonia Additional Past Medical History / Comment(s): COVID April 2022 and December 2022, multiple MIs, TIA, peripheral vision loss of left eye, white mass on brain in MRI, wears o2 at home 3L at night prn, heart monitor from cardiology office r/t tachycardia Last Myocardial Infarction Date:: 2020 History of Any Multi-Drug Resistant Organisms: None Reported Past Surgical History: Heart Catheterization With Stent Additional Past Surgical History / Comment(s): 2 cardiac stents Past Anesthesia/Blood Transfusion Reactions: No Reported Reaction Date of Last Stent Placement:: 2020 Past Psychological History: Anxiety Smoking Status: Former smoker Past Alcohol Use History: None Reported Past Drug Use History: None Reported - Past Family History Father Family Medical History: Myocardial Infarction ([place]) Additional Family Medical History / Comment(s): from [place] Brother(s) Family Medical History: Myocardial Infarction ([place]) Additional Family Medical History / Comment(s): from [place] Medications and Allergies Home Medications Medication Instructions Recorded Confirmed Type FLUoxetine HCL [PROzac] 20 mg PO DAILY 04/26/22 05/07/23 History FLUoxetine HCL [PROzac] 40 mg PO DAILY 04/26/22 05/07/23 History Isosorbide Mononitrate ER [Imdur] 90 mg PO DAILY 04/26/22 05/07/23 History Nitroglycerin Sl Tabs [Nitrostat] 0.4 mg SL Q5M PRN 04/26/22 05/07/23 History rOPINIRole HCL [Requip] 0.5 mg PO TID 04/26/22 05/07/23 History Ipratropium-Albuterol Nebulize 3 ml INHALATION RT-QID 30 Days 01/30/23 05/07/23 Rx [Duoneb 0.5 mg-3 mg/3 ml Soln] #120 each Azelastine HCl [Astelin Nasal 1 spr EA NOSTRIL BID 04/01/23 05/07/23 History [place]] Losartan [Cozaar] 25 mg PO DAILY 04/01/23 05/07/23 History Simethicone Chew [Mylicon Chew] 40 mg PO QID #90 tab 04/02/23 05/07/23 Rx Ezetimibe [Zetia] 10 mg PO DAILY 04/16/23 05/07/23 History Famotidine [Pepcid] 20 mg PO HS PRN 04/16/23 05/07/23 History Metoprolol Tartrate [Lopressor] 50 mg PO BID-W/MEALS 30 Days #60 04/18/23 05/07/23 Rx tab Pantoprazole [Protonix] 40 mg PO AC-BRKFST 30 Days #30 tab 04/18/23 05/07/23 Rx Ranolazine [Ranexa] 500 mg PO Q12HR #60 tab 04/18/23 05/07/23 Rx Sucralfate [Carafate] 1 gm PO DIRECTED 05/07/23 05/07/23 History Allergies Allergy/AdvReac Type Severity Reaction Status Date / Time codeine Allergy Anaphylaxis Verified 05/07/23 06:42 peanut Allergy Migraine/Allergy Verified 05/07/23 06:42 testing Physical Exam Vitals: Vital Signs Temp Pulse Resp BP Pulse Ox 05/07/23 14:37 97.5 F L 70 18 120/80 97 05/07/23 14:00 59 L 18 110/66 96 05/07/23 13:09 54 L 18 132/80 99 05/07/23 12:00 61 18 110/78 98 05/07/23 11:33 62 05/07/23 11:27 97 05/07/23 11:26 59 L 05/07/23 11:00 57 L 16 120/77 97 05/07/23 10:15 63 18 142/100 97 05/07/23 09:15 56 L 18 181/93 96 05/07/23 08:21 59 L 18 160/80 98 05/07/23 07:00 98.0 F 64 18 149/68 98 05/07/23 06:00 63 22 119/83 97 05/07/23 05:00 60 22 136/63 97 05/07/23 03:45 97.8 F 67 24 183/86 94 L Intake and Output 05/07/23 05/07/23 05/07/23 06:59 14:59 22:59 Intake Total 240 Balance 240 Intake: Oral 240 Other: Weight 83.915 kg GENERAL EXAM: Alert, active, pleasant 62-year-old male, and mild degree of respiratory distress currently on 4 L of oxygen by nasal cannula HEAD: Normocephalic. EYES: Normal reaction of pupils, equal size. NOSE: Clear with pink turbinates. THROAT: No erythema or exudates. NECK: No masses, no JVD. CHEST: No chest wall deformity. LUNGS: Equal air entry with no crackles, wheeze, rhonchi or dullness. The patient has diffuse extremity wheezes throughout the lung base bilaterally and there is prolongation of the escalation phase of breathing CVS: S1 and S2 normal with no audible murmur, regular rhythm. ABDOMEN: No hepatosplenomegaly, normal bowel sounds, no guarding or rigidity. SPINE: No scoliosis or deformity SKIN: No rashes CENTRAL NERVOUS SYSTEM: No focal deficits, tone is normal in all 4 extremities. EXTREMITIES: There is no peripheral edema. No clubbing, no cyanosis. Peripheral pulses are intact. Results - Laboratory Findings CBC and BMP: 05/07/23 03:49 05/07/23 03:49 PT/INR, D-dimer PT 10.2 sec (10.0-12.5) 05/07/23 03:49 INR 0.9 (<1.2) 05/07/23 03:49 D-Dimer 1.20 mg/L FEU (<0.60) H 05/07/23 10:24 Abnormal lab findings: Abnormal Labs 05/07/23 05/07/23 05/07/23 03:49 10:24 12:21 D-Dimer 1.20 H Glucose 106 H Troponin I 0.554 H* - Diagnostic Findings Chest x-ray: image reviewed CT scan - chest: image reviewed Assessment and Plan Plan: Chest pain, with some feature to suggest angina as the patient has responded to nitro and he has radiation to the LUE and he has some minimal trop elevation (3rd set), minimal troponin elevation, No pulmonary embolism on the CTA of the chest and no other abnormal findings other than COPD Coronary artery disease with previous coronary stenting Severe chronic obstructive pulmonary disease with unknown FEV1 value of 40% of predicted. The patient has severe COPD with chronic hypoxic respiratory fa ilure. The patient states that he is not smoking. No other environmental or acute patient exposures. Chest x-ray is consistent with COPD. CAT scan of the chest that was done done on 05/07/2023 shows no evidence of any pulmonary embolism. No evidence of pneumonia. Is consistent with COPD Chronic Shortness of breath secondary to above Chronic hypoxic respiratory failure secondary to advanced COPD Former smoker History of coronary artery disease with previous stent placements Hypertension Hyperlipidemia Gastroesophageal reflux disease History of depression Plan We'll put the patient on albuterol and ipratropium nebulized treatments [id number] Reduction flow to maintain a saturation above 90% CTA of the chest negative for pulmonary embolism. Continue the IV heparin till the patient isn cleared by cardiology, may consider cath Resume all medication We'll continue to follow
[2023-05-08] MEDS: METOPROLOL TARTRATE 50 MG TAB PO SCH ×2 (06:15→18:11)
[2023-05-08] MEDS: PANTOPRAZOLE 40 MG/10 ML VIAL IV SCH (08:34)
[2023-05-08] MEDS: amLODIPine 5 MG TAB PO SCH (08:35)
[2023-05-08] MEDS: RANOLAZINE 500 MG TAB.ER.12H PO SCH ×2 (08:35→19:43)
[2023-05-08] MEDS: EZETIMIBE 10 MG TAB PO SCH (08:35)
[2023-05-08] MEDS: ISOSORBIDE MONONITRATE ER 30 MG TAB.ER.24H PO SCH (08:35)
[2023-05-08] MEDS: ASPIRIN 81 MG PO SCH (08:35)
[2023-05-08] MEDS: AZELASTINE 137MCG/SPRAY EA NOSTRIL SCH ×2 (08:35→19:43)
[2023-05-08] MEDS: LOSARTAN 25 MG TAB PO SCH (08:35)
[2023-05-08] MEDS: FLUoxetine HCL 20 MG CAP PO SCH ×2 (08:35→08:36)
[2023-05-08] MEDS: SIMETHICONE 80 MG CHEWABLE PO SCH ×4 (08:37→19:43)
[2023-05-08] MEDS: IPRATROPIUM-ALBUTEROL 3 ML NEB INHALATION SCH ×4 (09:08→20:10)
[2023-05-08 09:45] LABS: Basophils % (A) 1 %; Eosinophils # (A) 0.1 k/uL (0-0.7); Eosinophils % (A) 3 %; HCT 37.2 % (39.0-53.0); HGB 12.7 gm/dL (13.0-17.5); Lymphocytes # (A) 1.5 k/uL (1.0-4.8); Lymphocytes % (A) 28 %; MCH 29.8 pg (25.0-35.0); MCHC 34.3 g/dL (31.0-37.0); MCV 86.9 fL (80.0-100.0); Mean Platelet Volume 8.1; Monocytes # (A) 0.4 k/uL (0-1.0); Monocytes % (A) 7 %; Neutrophils % (A) 59 %; Platelet Count 206 k/uL (150-450); RBC 4.28 m/uL (4.30-5.90); RDW 14.3 % (11.5-15.5); WBC 5.2 k/uL (3.8-10.6)
[2023-05-08] MEDS ORDERED: ALPRAZolam 0.25 MG TAB PO PRN (10:07)
[2023-05-08] MEDS ORDERED: ALPRAZolam 0.5 MG TAB PO PRN (10:07)
[2023-05-08] MEDS ORDERED: ATORVASTATIN 80 MG TAB PO STA (10:07)
[2023-05-08] MEDS ORDERED: ASPIRIN 325 MG TAB PO STA (10:07)
[2023-05-08] MEDS ORDERED: NITROGLYCERIN SL TABS 0.4 MG TAB SUBLINGUAL PRN (10:07)
[2023-05-08 10:10] LABS: African American GFR (CKD) >90 (>60 ml/min/1.73 sqM); Anion Gap 9 mmol/L; Blood Urea Nitrogen 11 mg/dL (9-20); Calcium 8.5 mg/dL (8.4-10.2); Carbon Dioxide 22 mmol/L (22-30); Chloride 106 mmol/L (98-107); Glucose 97 mg/dL (74-99); Non-African American GFR(CKD) 85 (>60 ml/min/1.73 sqM); Potassium 4.1 mmol/L (3.5-5.1); Sodium 137 mmol/L (137-145)
--- NOTE | 2023-05-08 10:54 | P.PN ---
Subjective Progress Note Date: 05/08/23 * 63-year-old patient with past medical history significant for COPD, chronic hypoxic respiratory failure, diabetes mellitus, hypertension, history of coronary artery disease, is admitted to the emergency department with complains of chest pain. Patient states he woke up from sleep with mid sternal chest pain, radiating to left arm associated with shortness of breath. Patient does have history of COPD and does with 4 L of oxygen at baseline. This was associated with nausea without vomiting. Patient took nitroglycerin at home which did improve his chest discomfort however chest pain recur 8 upon arrival to ED patient was given aspirin and nitroglycerin as well with improvement in chest pain. Patient does have history of coronary artery disease and PCI he was recently admitted in March with chest pain and seen by cardiology * Workup initiated in ER included an EKG which showed sinus rhythm no significant ST segment changes, initial troponin obtained in ED was negative * Serum chemistry obtained showed a INR of 0.9 normal CBC and normal electrolyte panel liver profile within normal limits * A chest x-ray obtained on presentation was within normal limits * Patient was started on IV heparin in ED secondary to unstable angina with consultation from cardiology * 05/08: Patient seen and evaluated bedside, troponin trending up, continue on IV heparin patient seen by cardiology and pulmonary medicine, continue current and recommended medical therapy including aspirin, heparin, losartan, met oprolol, Ranexa Objective - Vital Signs Vital signs: Vital Signs Temp 98 F 05/08/23 08:30 Pulse 66 05/08/23 09:17 Resp 18 05/08/23 08:30 BP 115/68 05/08/23 08:30 Pulse Ox 96 05/08/23 09:11 FiO2 Intake & Output 05/07/23 05/08/23 05/08/23 18:59 06:59 18:59 Intake Total 318.714 Balance 318.714 Weight 83.915 kg 83.9 kg Intake: Intake, IV Titration 78.714 Amount Heparin Sod,Pork in 0.45% 78.714 NaCl 25,000 unit In 0.45 % NaCl 1 250ml.bag @ 12 UNITS/KG/HR 10.07 mls/hr IV .Q24H [facility] Rx#: [id number] Oral 240 Other: # Voids 1 - Exam PHYSICAL EXAMINATION: GENERAL: The patient is alert and oriented x3, not in any acute distress. Well developed, well nourished. Ill appearance HEENT: Pupils are round and equally reacting to light. EOMI. CARDIOVASCULAR: S1 and S2 present. No murmurs, rubs, or gallops. PULMONARY: Chest is clear to auscultation, no wheezing or crackles. ABDOMEN: Soft, nontender, nondistended, normoactive bowel sounds. No palpable organomegaly. MUSCULOSKELETAL: No joint swelling or deformity. EXTREMITIES: No cyanosis, clubbing, or pedal edema. NEUROLOGICAL: Gross neurological examination did not reveal any focal deficits. SKIN: No rashes. - Labs CBC & Chem 7: 05/08/23 07:01 05/08/23 07:01 Labs: Abnormal Lab Results - Last 24 Hours (Table) 05/07/23 05/07/23 05/07/23 Range/Units 10:24 12:21 17:15 RBC (4.30-5.90) m/uL Hgb (13.0-17.5) gm/dL Hct (39.0-53.0) % APTT 56.0 H (22.0-30.0) sec D-Dimer 1.20 H (<0.60) mg/L FEU Troponin I 0.554 H* (0.000-0.034) ng/mL 05/07/23 05/08/23 05/08/23 Range/Units 18:27 07:01 07:01 RBC 4.28 L (4.30-5.90) m/uL Hgb 12.7 L (13.0-17.5) gm/dL Hct 37.2 L (39.0-53.0) % APTT 56.5 H 46.7 H (22.0-30.0) sec D-Dimer (<0.60) mg/L FEU Troponin I (0.000-0.034) ng/mL Assessment and Plan Assessment: Assessment and plan * Non-ST elevated [place] with history of coronary artery disease * Essential hypertension * Dyslipidemia * Gastroesophageal reflux disease with hernia history * Chronic hypoxic respiratory failure with history of COPD * History of depression * In regards to non-ST elevated [place], continue IV heparin, continue current medical regimen, cardiology following troponin up to 0.554 * In regards to history of coronary artery disease continue Imdur, Ranexa, metoprolol, losartan * In regards to chronic hypoxic respiratory failure continue patient on DuoNeb as needed continue oxygen supplementation pulmonary medicine consulted , patient recommendation * In regards to history of gastroesophageal reflux disease, hernia CT abdomen pelvis with oral contrast negative for bowel obstruction, continue PPI * CODE STATUS is full code Time with Patient: Greater than 30
[2023-05-08] MEDS: SODIUM CHLORIDE 0.9% 1,000 ML in EMPTY BAG 1 BAG IV SCH (12:00)
--- NOTE | 2023-05-08 12:07 | P.PN ---
Subjective Progress Note Date: 05/08/23 This is a 63-year-old mentation, known history of COPD and the patient is 02 dependent, coronary artery disease with previous coronary stenting that was done in [place], known history of hypertension hyperlipidemia, hospitalized for chest pain, nausea and emesis along with heartburn. The patient's chest pain was felt to be over the anterior pericardium, severe and he has been using nitroglycerine with variable success in relieving the pain He has had also some radiation to the LUE. Cardiology and pulmonary consultation was requested accordingly. The patient was started on IV heparin. Troponins were negative 2 and the third set showed a troponin level of 0.55. D-dimer was at 1.2.. The WBC count at 7.2, he was 14.5, normal cognition profile, normal renal function. The patient is currently on IV heparin and he is stable. He is free of pain. He has no abdominal pain and he has no distension and he is having bowel movements. In regards to COPD, the patient has severe disease with an FEV1 of 40% of predicted at baseline based on his spirometry that was done on 06/03/2022. He has been maintained on Anoro Ellipta on outpatient basis regarding his COPD. He is chronic smoker. His other comorbid conditions include hyperlipidemia hypothyroidism and previous history of left carotid artery stenosis. He was treated for an acute COPD exacerbation back in August 2022 and was involved in his care. The CT angiogram of the chest showed no evidence of any pulmonary embolism. Is consistent with COPD with centrilobular emphysema an upper lobe predominance. There is moderate centrilobular emphysema noted. The lungs are clear of any acute pulmonary infiltration. The computed tomography scan of the abdomen and pelvis was also done that showed hepatic steatosis, the stomach was distended and there are a few prominent small bowel loops in the central abdomen without evidence of any transition point of obstruction. On today's evaluation of 05/08/2023, the patient remains on IV heparin. The patient still having on and off episodes of chest pain. Cardiology seen the patient. The patient is being considered for cardiac catheterization. He remains on aspirin. He remains on IV heparin. He remains on metoprolol 50 mg twice a day. He is also on Ranexa. Blood work from today shows a PTT of 46.7. BUN is 11 with a creatinine of 0.5 and sodium levels is 137. The white cell count is at 5.2 with a hemoglobin of 12.7 and a platelet count of 206. Objective - Vital Signs Vital signs: Vital Signs Temp 98 F 05/08/23 08:30 Pulse 66 05/08/23 09:17 Resp 18 05/08/23 08:30 BP 115/68 05/08/23 08:30 Pulse Ox 96 05/08/23 09:11 FiO2 Intake & Output 05/07/23 05/08/23 05/08/23 18:59 06:59 18:59 Intake Total 318.714 Balance 318.714 Weight 83.915 kg 83.9 kg Intake: Intake, IV Titration 78.714 Amount Heparin Sod,Pork in 0.45% 78.714 NaCl 25,000 unit In 0.45 % NaCl 1 250ml.bag @ 12 UNITS/KG/HR 10.07 mls/hr IV .Q24H MAIKEL Rx#: [id number] Oral 240 Other: # Voids 1 - Exam GENERAL EXAM: Alert, active, pleasant 62-year-old male, and mild degree of r espiratory distress currently on 4 L of oxygen by nasal cannula HEAD: Normocephalic. EYES: Normal reaction of pupils, equal size. NOSE: Clear with pink turbinates. THROAT: No erythema or exudates. NECK: No masses, no JVD. CHEST: No chest wall deformity. LUNGS: Equal air entry with no crackles, wheeze, rhonchi or dullness. The patient has diffuse extremity wheezes throughout the lung base bilaterally and there is prolongation of the escalation phase of breathing CVS: S1 and S2 normal with no audible murmur, regular rhythm. ABDOMEN: No hepatosplenomegaly, normal bowel sounds, no guarding or rigidity. SPINE: No scoliosis or deformity SKIN: No rashes CENTRAL NERVOUS SYSTEM: No focal deficits, tone is normal in all 4 extremities. EXTREMITIES: There is no peripheral edema. No clubbing, no cyanosis. Peripheral pulses are intact. - Labs CBC & Chem 7: 05/08/23 07:01 05/08/23 07:01 Labs: Abnormal Lab Results - Last 24 Hours (Table) 05/07/23 05/07/23 05/07/23 Range/Units 10:24 12:21 17:15 RBC (4.30-5.90) m/uL Hgb (13.0-17.5) gm/dL Hct (39.0-53.0) % APTT 56.0 H (22.0-30.0) sec D-Dimer 1.20 H (<0.60) mg/L FEU Troponin I 0.554 H* (0.000-0.034) ng/mL 05/07/23 05/08/23 05/08/23 Range/Units 18:27 07:01 07:01 RBC 4.28 L (4.30-5.90) m/uL Hgb 12.7 L (13.0-17.5) gm/dL Hct 37.2 L (39.0-53.0) % APTT 56.5 H 46.7 H (22.0-30.0) sec D-Dimer (<0.60) mg/L FEU Troponin I (0.000-0.034) ng/mL Assessment and Plan Plan: Chest pain, with some feature to suggest angina as the patient has responded to nitro and he has radiation to the LUE and he has some minimal trop elevation (3rd set), minimal troponin elevation, No pulmonary embolism on the CTA of the chest and no other abnormal findings other than COPD Coronary artery disease with previous coronary stenting Severe chronic obstructive pulmonary disease with unknown FEV1 value of 40% of predicted. The patient has severe COPD with chronic hypoxic respiratory failure. The patient states that he is not smoking. No other environmental or acute patient exposures. Chest x-ray is consistent with COPD. CAT scan of the chest that was done done on 05/07/2023 shows no evidence of any pulmonary embolism. No evidence of pneumonia. Is consistent with COPD Chronic Shortness of breath secondary to above Chronic hypoxic respiratory failure secondary to advanced COPD Former smoker History of coronary artery disease with previous stent placements Hypertension Hyperlipidemia Gastroesophageal reflux disease History of depression Plan Still having chest pain and the patient is mentally on IV heparin We'll put the patient on albuterol and ipratropium nebulized treatments [id number] CTA of the chest negative for pulmonary embolism. Continue the IV heparin till the patient isn cleared by cardiology, may consider cath Resume all medication We'll continue to follow
[2023-05-08 12:58] LABS: Glucose,Whole Blood 110 mg/dL (70-110)
--- NOTE | 2023-05-08 13:00 | P.PN ---
Subjective HISTORY OF PRESENT ILLNESS: This is a 63-year-old male patient of Dr. Fonseca with past medical history significant for coronary artery disease with previous stenting in [place], hypertension, hyperlipidemia, COPD on home oxygen, and chronic chest pain. We have been asked to see the patient in consultation for chest pain. Patient is seen today in the emergency center waiting for bed on the observation unit. Patient is complaining of vomiting that has been going on for the past 2 weeks, chest pain with deep breathing and tenderness to the chest wall, heartburn. Blood pressure 181/93. Patient has not been started on his home cardiac medications. EKG reveals sinus mechanism with no signs of acute ischemia Chest xray No acute cardiopulmonary process Most recent echocardiogram obtained in November 2022 revealing ejection fraction 55- 60%, mild TR with no evidence of pulmonary hypertension, and trace to mild MR CBC normal. INR 0.9. Electrolytes and renal function normal. Blood sugar 106. Troponin negative 2. Liver function tests normal. Magnesium 1.8. Cardiac catheterization history: June 2022 revealing mild coronary artery disease including 2030% circumflex and 10-20% LAD stenosis with patent nondominant RCA stenting. Mildly elevated left sided filling pressures. Home cardiac medications: Zetia 10 mg daily, Imdur 90 mg daily, losartan 25 mg daily, Lopressor 50 mg twice daily, Nitrostat as needed, Ranexa 500 mg every 12 hours. 05/08/2023 Patient examined this morning at the bedside. Patient reports having some symptoms of chest discomfort and heartburn overnight. He remains on IV heparin. A early denies shortness of breath. Patient's third troponin came back elevated at 0.554. Patient was started on amlodipine yesterday secondary to hypertension. However this morning his blood pressures are borderline with a systolic in the 90s. PHYSICAL EXAM: VITAL SIGNS: Reviewed. GENERAL: Well-developed in no acute distress. NECK: Supple. No JVD or thyromegaly LUNGS: Respirations even and unlabored. Lungs essentially clear to auscultation bilaterally. HEART: Regular rate and rhythm. S1 and S2 heard. EXTREMITIES: Normal range of motion. No clubbing or cyanosis. Peripheral pulses intact. No lower extremity edema ASSESSMENT: Non-STEMI Vomiting 2 weeks Coronary artery disease with previous stenting Hypertension Hyperlipidemia COPD with chronic hypoxic respiratory failure on home oxygen PLAN: Discontinue amlodipine. Continue to monitor blood pressure Continue additional cardiac medications Continue IV heparin Patient will undergo cardiac catheterization today with Dr. Fonseca Further recommendations pending patient's course Nurse practitioner note has been reviewed by physician. Signing provider agrees with the documented findings, assessment, and plan of care. Objective - Vital Signs Vital signs: Vital Signs Temp 97.6 F 05/08/23 12:00 Pulse 67 05/08/23 12:00 Resp 16 05/08/23 12:00 BP 116/71 05/08/23 12:00 Pulse Ox 94 L 05/08/23 12:00 FiO2 Intake & Output 05/07/23 05/08/23 05/08/23 18:59 06:59 18:59 Intake Total 318.714 Balance 318.714 Weight 83.915 kg 83.9 kg Intake: Intake, IV Titration 78.714 Amount Heparin Sod,Pork in 0.45% 78.714 NaCl 25,000 unit In 0.45 % NaCl 1 250ml.bag @ 12 UNITS/KG/HR 10.07 mls/hr IV .Q24H MAIKEL Rx#: [id number] Oral 240 Other: # Voids 1 - Labs CBC & Chem 7: 05/08/23 07:01 05/08/23 07:01 Labs: Abnormal Lab Results - Last 24 Hours (Table) 05/07/23 05/07/23 05/07/23 Range/Units 12:21 17:15 18:27 RBC (4.30-5.90) m/uL Hgb (13.0-17.5) gm/dL Hct (39.0-53.0) % APTT 56.0 H 56.5 H (22.0-30.0) sec Troponin I 0.554 H* (0.000-0.034) ng/mL 05/08/23 05/08/23 Range/Units 07:01 07:01 RBC 4.28 L (4.30-5.90) m/uL Hgb 12.7 L (13.0-17.5) gm/dL Hct 37.2 L (39.0-53.0) % APTT 46.7 H (22.0-30.0) sec Troponin I (0.000-0.034) ng/mL
[2023-05-08] MEDS ORDERED: VERAPAMIL 2.5 MG/ML 2 ML AMP ONE (13:22)
[2023-05-08] MEDS ORDERED: fentaNYL (PF) 50 MCG/ML 2 ML AMP ONE (13:28)
[2023-05-08] MEDS ORDERED: HEPARIN SODIUM 1,000 UN/ML (10ML VL) ONE (13:28)
[2023-05-08] MEDS ORDERED: IV FLUID CONTINUATION 1,000 ML IV ONE (13:30)
[2023-05-08] MEDS ORDERED: fentaNYL (PF) 50 MCG/ML 2 ML AMP IVP ONE (13:36)
[2023-05-08] MEDS ORDERED: MIDAZOLAM 2 MG/2 ML VIAL IVP ONE (13:36)
[2023-05-08] MEDS ORDERED: LIDOCAINE 2% (PF) 20 MG/ML 5 ML VIAL SQ ONE (13:39)
[2023-05-08] MEDS ORDERED: VERAPAMIL SYRINGE (5 MG/10 ML) INTRAARTER ONE (13:40)
[2023-05-08] MEDS ORDERED: IOPAMIDOL-370 100ML BTL INJ ONE (14:07)
--- NOTE | 2023-05-08 14:15 | P.CARDCATH ---
Description of Procedure: PROCEDURES PERFORMED: Left heart catheterization, bilateral coronary angiography, ultrasound guided arterial access INDICATION: Non-STEMI CONSENT:I have discussed the risks, benefits and alternative therapies for the above-mentioned procedure and for both sedation/analgesia as well as necessary blood product administration, if indicated, as they pertain to this patient. The patient has indicated understanding and acceptance of the risks and procedures discussed. PROCEDURE: After the risks, benefits and alternatives of the above mentioned procedure explained in detail with the patient, informed consent was obtained. Patient was taken to the catheterization lab and prepped and draped in usual fashion. Ultrasound guidance was used to assess for arterial access. 1% lidocaine was used to anesthetize the right radial artery. A 6-Bolivian sheath was placed in the right radial artery using modified Seldinger technique and ul trasound guidance. Left coronary angiography was performed with a 5-Bolivian JL 3.5 catheter and right coronary angiography was performed with a 5-Bolivian AR2 catheter in various views. A 5-Bolivian AR2 catheter was inserted into the left ventricle and pressure measurements were obtained. The decision was made to perform iFR of the circumflex. A 0.014 pressure wire was advanced in the proximal left main through the FL 3.5 catheter. It was then normalized and advanced 1 cm distal to the circumflex lesion. iFR was normal at 1.0 and the wire and catheter were then removed. The right radial sheath was removed and a TR band was placed with hemostasis achieved. The patient tolerated the procedure well. Patient was transported back to the post catheterization holding area in stable condition. Conscious Sedation: Patient was monitored under the direct supervision of myself for conscious sedation using Versed and fentanyl for a total duration of 32 minutes HEMODYNAMICS: Aorta: 97/60 LV: 5/18, LVEDP 28 SELECTIVE CORONARY ARTERIOGRAPHY: LEFT MAIN: The left main is a large caliber vessel which bifurcates into the LAD and circumflex. There is mild tenderness 20% left main stenosis LEFT ANTERIOR DESCENDING CORONARY ARTERY: LAD is a large caliber vessel which wraps around to the apex. There are mild luminal irregularities and a mid LAD 20% stenosis LEFT CIRCUMFLEX CORONARY ARTERY: Left circumflex is a large caliber vessel which gives off a dominant circumflex. There is a proximal circumflex stent which is patent however just proximal to this there is a 50-60% eccentric lesion and otherwise mild 20-30% stenoses of the mid and distal circumflex. There is a previous distal circumflex stent which appears to have jailed a small caliber OM 3 branch with a 80% stenosis. RIGHT CORONARY ARTERY: The right coronary artery is a small caliber vessel which gives off an acute marginal branch and is non dominant vessel. There is a patent proximal RCA stent with mild 20-30% stenoses FINAL IMPRESSION: 1. CAD as described above including proximal circumflex 50-60% stenosis, ostial OM 3 80% stenosis of a previous jailed OM3 branch, 20-30% stenosis 2. Elevated left sided filling pressures 3. iFR normal of proximal circumflex PLAN: 1. Aggressive risk factor modification per most recent ACC/AHA guidelines. 2. Jailed OM 3 branch appears likely old and therefore was treated medically. Proximal circumflex as not significant by iFR and would continue medical therapy. Consider diuresis.
[2023-05-09] MEDS: HEPARIN SOD,PORK IN 0.45% NACL 25,000 UNIT in 0.45% NACL 1 250ML.BAG IV SCH (00:58)
[2023-05-09] MEDS: SODIUM CHLORIDE 0.9% 1,000 ML in EMPTY BAG 1 BAG IV SCH ×2 (00:58→08:54)
[2023-05-09] MEDS: amLODIPine 5 MG TAB PO SCH (00:58)
[2023-05-09] MEDS: METOPROLOL TARTRATE 50 MG TAB PO SCH (06:06)
[2023-05-09] MEDS ORDERED: HEPARIN SODIUM,PORCINE (1 ML) 2,500 UNIT in SODIUM CHLORIDE 0.9% 250 ML IRRIGATION PRN (07:00)
[2023-05-09] MEDS ORDERED: HEPARIN SODIUM,PORCINE 10,000 UNIT in SODIUM CHLORIDE 0.9% 1,000 ML IRRIGATION PRN (07:00)
[2023-05-09] MEDS: FLUoxetine HCL 20 MG CAP PO SCH ×2 (08:52→08:53)
[2023-05-09] MEDS: ASPIRIN 81 MG PO SCH (08:52)
[2023-05-09] MEDS: ISOSORBIDE MONONITRATE ER 30 MG TAB.ER.24H PO SCH (08:52)
[2023-05-09] MEDS: PANTOPRAZOLE 40 MG/10 ML VIAL IV SCH (08:52)
[2023-05-09] MEDS: RANOLAZINE 500 MG TAB.ER.12H PO SCH (08:52)
[2023-05-09] MEDS: LOSARTAN 25 MG TAB PO SCH (08:53)
[2023-05-09] MEDS: SIMETHICONE 80 MG CHEWABLE PO SCH ×2 (08:53→13:28)
[2023-05-09] MEDS: AZELASTINE 137MCG/SPRAY EA NOSTRIL SCH (08:54)
[2023-05-09] MEDS: EZETIMIBE 10 MG TAB PO SCH (08:55)
[2023-05-09 09:24] LABS: HCT 35.8 % (39.0-53.0); HGB 12.1 gm/dL (13.0-17.5); MCH 29.8 pg (25.0-35.0); MCHC 33.8 g/dL (31.0-37.0); MCV 88.1 fL (80.0-100.0); Mean Platelet Volume 7.3; Platelet Count 181 k/uL (150-450); RBC 4.06 m/uL (4.30-5.90); RDW 14.2 % (11.5-15.5); WBC 5.2 k/uL (3.8-10.6)
[2023-05-09] MEDS: IPRATROPIUM-ALBUTEROL 3 ML NEB INHALATION SCH ×2 (09:40→11:10)
[2023-05-09 09:51] LABS: African American GFR (CKD) >90 (>60 ml/min/1.73 sqM); Anion Gap 8 mmol/L; Blood Urea Nitrogen 8 mg/dL (9-20); Calcium 8.1 mg/dL (8.4-10.2); Carbon Dioxide 21 mmol/L (22-30); Chloride 108 mmol/L (98-107); Glucose 177 mg/dL (74-99); Non-African American GFR(CKD) 89 (>60 ml/min/1.73 sqM); Potassium 4.1 mmol/L (3.5-5.1); Sodium 137 mmol/L (137-145)
[2023-05-09] MEDS ORDERED: FUROSEMIDE 10 MG/ML 4 ML VIAL IV STA (10:28)
[2023-05-09 11:46] VITALS: BP 113/69; PULSE 77; RESP 16; TEMP 97.7
--- NOTE | 2023-05-09 12:03 | P.PN ---
Subjective Progress Note Date: 05/09/23 The Patient is 63-year-old male who is admitted to the hospital with chest discomfort. He underwent coronary angiogram with Dr. Fonseca, which revealed no significant progression from previous angiogram. He does have a 50-60% eccentric lesion in the proximal circumflex which was nonischemic by IFR, as w ell as a jailed OM3 branch which is being treated medically. Patient was interviewed and examined resting comfortably in bed. He states he has experienced some intermittent chest discomfort while resting in bed. He does report shortness of breath upon ambulation, which is his baseline. GENERAL: Well-appearing, well-nourished and in no acute distress. NECK: Supple without JVD or thyromegaly. LUNGS: Breath sounds diminished to auscultation bilaterally. Respiration equal and unlabored. Inspiratory wheezes. HEART: Regular rate and rhythm without murmurs, rubs or gallops. S1 and S2 heard. EXTREMITIES: Normal range of motion, no edema. No clubbing or cyanosis. Peripheral pulses intact and strong. Right radial Site shows no hematoma. TELEMETRY: Sinus rhythm IMPRESSION: Non-STEMI Coronary artery disease, no obstructive disease Hypertension Hyperlipidemia COPD with chronic hypoxic respiratory failure PLAN: Continue maximal medical treatment including antianginals Patient may be discharged from the cardiac standpoint Outpatient follow-up with primary pinsetter mechanic helper Dr. Fonseca in 1 week I am dictating on behalf of Dr Chucoh [place]'s history/physical and assessment/plan. Objective - Vital Signs Vital signs: Vital Signs Temp 97.7 F 05/09/23 11:14 Pulse 77 05/09/23 11:19 Resp 16 05/09/23 11:19 BP 113/69 05/09/23 11:14 Pulse Ox 99 05/09/23 11:14 FiO2 Intake & Output 05/08/23 05/09/23 05/09/23 18:59 06:59 18:59 Intake Total 369 0 Balance 369 0 Intake: IV 75 Intake, IV Titration 294 Amount Sodium Chloride 0.9% 1, 294 000 ml In Empty Bag 1 bag @ 1 ML/KG/HR 83.9 mls/hr IV .[id number] MAIKEL Rx#: [id number] Oral 0 Other: Voiding Method Toilet Toilet # Voids 2 2 - Labs CBC & Chem 7: 05/09/23 08:42 05/09/23 08:42 Labs: Abnormal Lab Results - Last 24 Hours (Table) 05/08/23 05/09/23 05/09/23 Range/Units 14:46 08:42 08:42 RBC 4.06 L (4.30-5.90) m/uL Hgb 12.1 L (13.0-17.5) gm/dL Hct 35.8 L (39.0-53.0) % Chloride 108 H (98-107) mmol/L Carbon Dioxide 21 L (22-30) mmol/L BUN 8 L (9-20) mg/dL Glucose 177 H (74-99) mg/dL Calcium 8.1 L (8.4-10.2) mg/dL Troponin I 0.617 H* (0.000-0.034) ng/mL
--- NOTE | 2023-05-09 12:29 | P.DS ---
Providers Date of admission: 05/07/23 06:13 Expected date of discharge: 05/09/23 Attending physician: Jamin Burgos Consults: 05/07/23 06:07 Consult Physician Urgent Consulting Provider: [facility] Consult Reason/Comments: acute chest pain, possible acs Do you want consulting provider notified?: Yes 05/07/23 09:00 Consult Physician Routine Consulting Provider: Jrared Mejia Consult Reason/Comments: copd Do you want consulting provider notified?: Yes Primary care physician: [facility] Course: * 63-year-old patient with past medical history significant for COPD, chronic hypoxic respiratory failure, diabetes mellitus, hypertension, history of coronary artery disease, is admitted to the emergency department with complains of chest pain. Patient states he woke up from sleep with mid sternal chest pain, radiating to left arm associated with shortness of breath. Patient does have history of COPD and does with 4 L of oxygen at baseline. This was associated with nausea without vomiting. Patient took nitroglycerin at home which did improve his chest discomfort however chest pain recur 8 upon arrival to ED patient was given aspirin and nitroglycerin as well with improvement in chest pain. Patient does have history of coronary artery disease and PCI he was recently admitted in March with chest pain and seen by cardiology * Workup initiated in ER included an EKG which showed sinus rhythm no significant ST segment changes, initial troponin obtained in ED was negative * Serum chemistry obtained showed a INR of 0.9 normal CBC and normal electrolyte panel liver profile within normal limits * A chest x-ray obtained on presentation was within normal limits * Patient was started on IV heparin in ED secondary to unstable angina with con sultation from cardiology * 05/08: Patient seen and evaluated bedside, troponin trending up, continue on IV heparin patient seen by cardiology and pulmonary medicine, continue current and recommended medical therapy including aspirin, heparin, losartan, metoprolol, Ranexa * 05/09: Patient seen and evaluated, patient remains chest pain-free, patient is status post cardiac catheterization. Continue maximum medical treatment for angina patient cleared for discharge prescription for aspirin provided PHYSICAL EXAMINATION: GENERAL: The patient is alert and oriented x3, not in any acute distress. Well developed, well nourished. HEENT: Pupils are round and equally reacting to light. EOMI. CARDIOVASCULAR: S1 and S2 present. No murmurs, rubs, or gallops. PULMONARY: Chest is clear to auscultation, no wheezing or crackles. ABDOMEN: Soft, nontender, nondistended, normoactive bowel sounds. No palpable organomegaly. MUSCULOSKELETAL: No joint swelling or deformity. EXTREMITIES: No cyanosis, clubbing, or pedal edema. NEUROLOGICAL: Gross neurological examination did not reveal any focal deficits. SKIN: No rashes. Assessment and plan * Non-ST elevated UT with history of coronary artery disease * Essential hypertension * Dyslipidemia * Gastroesophageal reflux disease with hernia history * Chronic hypoxic respiratory failure with history of COPD * History of depression * In regards to non-ST elevated UT, status post cardiac catheterization, treated with IV heparin, continue maximal antianginal treatment, prescription for aspirin provided * In regards to history of coronary artery disease continue Imdur, Ranexa, metoprolol, losartan * In regards to chronic hypoxic respiratory failure continue breathing treatments at home continue oxygen supplementation pulmonary medicine consulted while inpatient * In regards to history of gastroesophageal reflux disease, hernia CT abdomen pelvis with oral contrast negative for bowel obstruction * Outpatient follow-up with PCP and cardiology Patient Condition at Discharge: Stable Plan - Discharge Summary Discharge Rx Participant: No New Discharge Prescriptions: New Aspirin 81 mg PO DAILY 30 Days #30 tab Continue Isosorbide Mononitrate ER [Imdur] 90 mg PO DAILY FLUoxetine HCL [PROzac] 40 mg PO DAILY Nitroglycerin Sl Tabs [Nitrostat] 0.4 mg SL Q5M PRN PRN Reason: Chest Pain rOPINIRole HCL [Requip] 0.5 mg PO TID Ipratropium-Albuterol Nebulize [Duoneb 0.5 mg-3 mg/3 ml Soln] 3 ml INHALATION RT-QID 30 Days #120 each Azelastine HCl [Astelin Nasal [place]] 1 spr EA NOSTRIL BID Pantoprazole [Protonix] 40 mg PO AC-BRKFST 30 Days #30 tab Sucralfate [Carafate] 1 gm PO DIRECTED FLUoxetine HCL [PROzac] 20 mg PO DAILY Losartan [Cozaar] 25 mg PO DAILY Simethicone Chew [Mylicon Chew] 40 mg PO QID #90 tab Famotidine [Pepcid] 20 mg PO HS PRN PRN Reason: Gi Upset Ezetimibe [Zetia] 10 mg PO DAILY Metoprolol Tartrate [Lopressor] 50 mg PO BID-W/MEALS 30 Days #60 tab Ranolazine [Ranexa] 500 mg PO Q12HR #60 tab Discharge Medication List FLUoxetine HCL [PROzac] 20 mg PO DAILY 04/26/22 [History] FLUoxetine HCL [PROzac] 40 mg PO DAILY 04/26/22 [History] Isosorbide Mononitrate ER [Imdur] 90 mg PO DAILY 04/26/22 [History] Nitroglycerin Sl Tabs [Nitrostat] 0.4 mg SL Q5M PRN 04/26/22 [History] rOPINIRole HCL [Requip] 0.5 mg PO TID 04/26/22 [History] Ipratropium-Albuterol Nebulize [Duoneb 0.5 mg-3 mg/3 ml Soln] 3 ml INHALATION RT-QID 30 Days #120 each 01/30/23 [Rx] Azelastine HCl [Astelin Nasal [place]] 1 spr EA NOSTRIL BID 04/01/23 [History] Losartan [Cozaar] 25 mg PO DAILY 04/01/23 [History] Simethicone Chew [Mylicon Chew] 40 mg PO QID #90 tab 04/02/23 [Rx] Ezetimibe [Zetia] 10 mg PO DAILY 04/16/23 [History] Famotidine [Pepcid] 20 mg PO HS PRN 04/16/23 [History] Metoprolol Tartrate [Lopressor] 50 mg PO BID-W/MEALS 30 Days #60 tab 04/18/23 [Rx] Pantoprazole [Protonix] 40 mg PO AC-BRKFST 30 Days #30 tab 04/18/23 [Rx] Ranolazine [Ranexa] 500 mg PO Q12HR #60 tab 04/18/23 [Rx] Sucralfate [Carafate] 1 gm PO DIRECTED 05/07/23 [History] Aspirin 81 mg PO DAILY 30 Days #30 tab 05/09/23 [Rx] Follow up Appointment(s)/Referral(s): Yara Wong MD [Primary Care Provider] - 1-2 days Te Fonseca DO [STAFF PHYSICIAN] - 1 Week Discharge Disposition: HOME SELF-CARE
--- NOTE | 2023-05-09 12:49 | CA ---
Transthoracic Echo Report Name: Sonu Garcia Age: 63 Gender: M : 1960 Exam Date: 05/08/2023 15:18 Exam Location: [place] [facility] Ht (in): 67 Wt (lb): 184 Ordering Physician: Te Fonseca DO ([email or web address]) Attending/Referring Phys: Business Process Consultant Barb Garduno [facility] Procedure CPT: Indications: re: NSTEMI Cardiac Hx: Technical Quality: Technically difficult study Contrast 1: Total Dose (mL): Contrast 2: Total Dose (mL): MEASUREMENTS (Male / Female) Normal Values 2D ECHO LV Diastolic Diameter PLAX 4.0 cm 4.2 - 5.9 / 3.9 - 5.3 cm LV Systolic Diameter PLAX 2.8 cm IVS Diastolic Thickness 0.9 cm 0.6 - 1.0 / 0.6 - 0.9 cm LVPW Diastolic Thickness 0.9 cm 0.6 - 1.0 / 0.6 - 0.9 cm LV Relative Wall Thickness 0.5 DOPPLER AV Peak Velocity 155.8 cm/s AV Peak Gradient 9.7 mmHg AV Mean Velocity 114.7 cm/s AV Mean Gradient 5.8 mmHg AV Velocity Time Integral 37.1 cm LVOT Peak Velocity 115.4 cm/s LVOT Peak Gradient 5.3 mmHg LVOT Velocity Time Integral 32.4 cm Mitral E Point Velocity 73.9 cm/s Mitral A Point Velocity 76.4 cm/s Mitral E to A Ratio 1.0 MV Deceleration Time 144.0 ms LV E' Lateral Velocity 5.3 cm/s Mitral E to LV E' Lateral Ratio 14.0 LV E' Septal Velocity 6.3 cm/s Mitral E to LV E' Septal Ratio 11.7 TR Peak Velocity 189.5 cm/s TR Peak Gradient 14.4 mmHg Right Atrial Pressure 8.0 mmHg Pulmonary Artery Systolic Pressu 22.4 mmHg Right Ventricular Systolic Press 22.4 mmHg FINDINGS Left Ventricle Left ventricular cavity size normal. Left ventricular wall thickness normal. Normal left ventricular systolic function with no obvious regional wall motion abnormalities. Left ventricular ejection fraction is estimated at 55-60%. Right Ventricle Normal right ventricular size. Right Atrium Mildly right atrial dilatation. Left Atrium Normal left atrial size. Mitral Valve Structurally normal mitral valve. No mitral regurgitation. Aortic Valve Aortic valve not well visualized. No aortic valve stenosis or regurgitation. Tricuspid Valve Structurally normal tricuspid valve. Mild tricuspid regurgitation. Pulmonic Valve Pulmonic valve not well visualized. Pericardium Minimal pericardial effusion (normal variant). Echo free space anterior to the right ventricle likely represents a fat pad. Aorta Aortic root and proximal ascending aorta not well visualized. CONCLUSIONS Normal LV systolic function Previewed by: Dr. Chucho Vegas MD (Electronically Signed) Final Date: 09 May 2023 12:49
--- NOTE | 2023-05-09 12:51 | P.PN ---
Subjective Progress Note Date: 05/09/23 This is a 63-year-old mentation, known history of COPD and the patient is 02 dependent, coronary artery disease with previous coronary stenting that was done in [place], known history of hypertension hyperlipidemia, hospitalized for chest pain, nausea and emesis along with heartburn. The patient's chest pain was felt to be over the anterior pericardium, severe and he has been using nitroglycerine with variable success in relieving the pain He has had also some radiation to the LUE. Cardiology and pulmonary consultation was requested accordingly. The patient was started on IV heparin. Troponins were negative 2 and the third set showed a troponin level of 0.55. D-dimer was at 1.2.. The WBC count at 7.2, he was 14.5, normal cognition profile, normal renal function. The patient is currently on IV heparin and he is stable. He is free of pain. He has no abdominal pain and he has no distension and he is having bowel movements. In regards to COPD, the patient has severe disease with an FEV1 of 40% of predicted at baseline based on his spirometry that was done on 06/03/2022. He has been maintained on Anoro Ellipta on outpatient basis regarding his COPD. He is chronic smoker. His other comorbid conditions include hyperlipidemia hypothyroidism and previous history of left carotid artery stenosis. He was treated for an acute COPD exacerbation back in August 2022 and was involved in his care. The CT angiogram of the chest showed no evidence of any pulmonary embolism. Is consistent with COPD with centrilobular emphysema an upper lobe predominance. There is moderate centrilobular emphysema noted. The lungs are clear of any acute pulmonary infiltration. The computed tomography scan of the abdomen and pelvis was also done that showed hepatic steatosis, the stomach was distended and there are a few prominent small bowel loops in the central abdomen without evidence of any transition point of obstruction. On today's evaluation of 05/08/2023, the patient remains on IV heparin. The patient still having on and off episodes of chest pain. Cardiology seen the patient. The patient is being considered for cardiac catheterization. He remains on aspirin. He remains on IV heparin. He remains on metoprolol 50 mg twice a day. He is also on Ranexa. Blood work from today shows a PTT of 46.7. BUN is 11 with a creatinine of 0.5 and sodium levels is 137. The white cell count is at 5.2 with a hemoglobin of 12.7 and a platelet count of 206. On today's evaluation of 05/09/2023, the patient is not having any chest pain. The patient underwent further cardiac workup. The patient underwent a cardiac catheterization yesterday and the patient was found to have CAD as described above including proximal circumflex 50-60% stenosis, ostial OM 3 80% stenosis of a previous jailed OM3 branch, 20-30% stenosis. Left ventricular diastolic pressure was elevated. He has advanced COPD. His oxygen-dependent. No signs of any acute choked exacerbation. CT angiogram showed no evidence of any pulmonary embolism. The white cell count is at 5.2 with a hemoglobin 12.1. BUN is at 8 with a creatinine of 0.9. Sodium is at 137. Objective - Vital Signs Vital signs: Vital Signs Temp 97.6 F 05/09/23 08:00 Pulse 75 05/09/23 08:00 Resp 18 05/09/23 08:00 BP 131/77 05/09/23 08:00 Pulse Ox 98 05/09/23 08:00 FiO2 Intake & Output 05/08/23 05/09/23 05/09/23 18:59 06:59 18:59 Intake Total 369 0 Balance 369 0 Intake: IV 75 Intake, IV Titration 294 Amount Sodium Chloride 0.9% 1, 294 000 ml In Empty Bag 1 bag @ 1 ML/KG/HR 83.9 mls/hr IV .[id number] MAIKEL Rx#: [id number] Oral 0 Other: Voiding Method Toilet # Voids 2 2 - Exam GENERAL EXAM: Alert, active, pleasant 62-year-old male, and mild degree of respiratory distress currently on 4 L of oxygen by nasal cannula HEAD: Normocephalic. EYES: Normal reaction of pupils, equal size. NOSE: Clear with pink turbinates. THROAT: No erythema or exudates. NECK: No masses, no JVD. CHEST: No chest wall deformity. LUNGS: Equal air entry with no crackles, wheeze, rhonchi or dullness. The patient has diffuse extremity wheezes throughout the lung base bilaterally and there is prolongation of the escalation phase of breathing CVS: S1 and S2 normal with no audible murmur, regular rhythm. ABDOMEN: No hepatosplenomegaly, normal bowel sounds, no guarding or rigidity. SPINE: No scoliosis or deformity SKIN: No rashes CENTRAL NERVOUS SYSTEM: No focal deficits, tone is normal in all 4 extremities. EXTREMITIES: There is no peripheral edema. No clubbing, no cyanosis. Peripheral pulses are intact. - Labs CBC & Chem 7: 05/09/23 08:42 05/09/23 08:42 Labs: Abnormal Lab Results - Last 24 Hours (Table) 05/08/23 05/09/23 05/09/23 Range/Units 14:46 08:42 08:42 RBC 4.06 L (4.30-5.90) m/uL Hgb 12.1 L (13.0-17.5) gm/dL Hct 35.8 L (39.0-53.0) % Chloride 108 H (98-107) mmol/L Carbon Dioxide 21 L (22-30) mmol/L BUN 8 L (9-20) mg/dL Glucose 177 H (74-99) mg/dL Calcium 8.1 L (8.4-10.2) mg/dL Troponin I 0.617 H* (0.000-0.034) ng/mL Assessment and Plan Plan: Chest pain, with some feature to suggest angina as the patient has responded to nitro and he has radiation to the LUE and he has some minimal trop elevation (3rd set), minimal troponin elevation, No pulmonary embolism on the CTA of the chest and no other abnormal findings other than COPD Coronary artery disease with previous coronary stenting, CAD as described abo ve including proximal circumflex 50-60% stenosis, ostial OM 3 80% stenosis of a previous jailed OM3 branch, 20-30% stenosis Severe chronic obstructive pulmonary disease with unknown FEV1 value of 40% of predicted. The patient has severe COPD with chronic hypoxic respiratory failure. The patient states that he is not smoking. No other environmental or acute patient exposures. Chest x-ray is consistent with COPD. CAT scan of the chest that was done done on 05/07/2023 shows no evidence of any pulmonary embolism. No evidence of pneumonia. Is consistent with COPD Chronic Shortness of breath secondary to above Chronic hypoxic respiratory failure secondary to advanced COPD Former smoker History of coronary artery disease with previous stent placements Hypertension Hyperlipidemia Gastroesophageal reflux disease History of depression Plan Repeat cardiac catheterization was noted. No intervention was done. The left ventricular end Diastolic pressure was elevated and the patient will be given a dose of Lasix 40 mg IV push Heparin will be discontinued and will Continue aspirin We'll put the patient on albuterol and ipratropium nebulized treatments [id number] CTA of the chest negative for pulmonary embolism. Resume all medication Discharge planning is in progress
== END 2023-05-09 14:25 | disposition home or self-care (01) ==
LOC: EC 03:44 → 6NMEDSUR 06:13 → 3SCARD 13:23
PROVIDERS: ADMIT Hospitalist; ATTEND Hospitalist
DX: I21.4 Non-ST elevation (NSTEMI) myocardial infarction (principal); R11.10 Vomiting, unspecified; I25.10 Atherosclerotic heart disease of native coronary artery without angina pectoris; J44.9 Chronic obstructive pulmonary disease, unspecified; I10 Essential (primary) hypertension; E78.5 Hyperlipidemia, unspecified; K21.9 Gastro-esophageal reflux disease without esophagitis; F41.9 Anxiety disorder, unspecified; F32.A Depression, unspecified; E03.9 Hypothyroidism, unspecified; J96.11 Chronic respiratory failure with hypoxia; E11.9 Type 2 diabetes mellitus without complications; I25.2 Old myocardial infarction; Z86.16 Personal history of COVID-19; Z86.73 Personal history of transient ischemic attack (TIA), and cerebral infarction without residual deficits; Z87.891 Personal history of nicotine dependence; Z95.5 Presence of coronary angioplasty implant and graft; Z99.81 Dependence on supplemental oxygen; Z79.82 Long term (current) use of aspirin; Z79.899 Other long term (current) drug therapy; Z88.5 Allergy status to narcotic agent; Z82.49 Family history of ischemic heart disease and other diseases of the circulatory system
CPT/HCPCS: 96376 ×2; 96361 ×2; 96375 ×2; 96374; 99285; 36415; 94640 ×5; 94760 ×2; 93005; 93306; 93458; 93799; 76937; 85379; 80053; 80048 ×2; 83735; 84484 ×2; 85025 ×2; 85027; 85610; 85730 ×2; 71046; 71275; 74178; G0378 ×4; C1769 ×2; C1894; J2250; J2270; J1940; J3010; J1644 ×2; C9113 ×3; J1170; Q9967 ×2; J2001

== ENCOUNTER 2023-05-18 07:36 | Observation (INO) | payer MEDICARE ==
--- NOTE | 2023-05-18 07:48 | ED ---
Chest Pain HPI - General Source: patient, RN notes reviewed Mode of arrival: ambulatory Limitations: no limitations <Junaid Meade - Last Filed: 05/18/23 07:46> - General Source: patient, RN notes reviewed, old records reviewed Mode of arrival: ambulatory Limitations: no limitations <Jose R Szymanski - Last Filed: 05/18/23 12:00> - General Chief Complaint: Chest Pain Stated Complaint: CHEST PAINS Time Seen by Provider: 05/18/23 07:46 - History of Present Illness Initial Comments: 63-year-old male presents emergency Department chief complaint chest pain. Patient states started overnight. Patient states she is recently admitted for a heart attack. Patient states she's had melena in the past with 2 stents. Patient states that he had a heart cath at his last admission but did not have further stent placed. Patient states he's taken 5 nitro overnight. Patient states has not alleviated his symptoms. (Junaid Meade) Patient is a pleasant 5 he 3-year-old male presenting to emergency department with concerns with chest pain. Onset of symptoms was early this morning. Patient has taken now 6 nitroglycerin. Nitroglycerin does help however discomfort seems to keep returning. Patient describes discomfort as. Patient states he did feel a little bit short of breath earlier. No nausea. No diaphoresis. Symptoms are similar to previous cardiac problems. Patient did have his heart attack just around a week ago. (Jose R Szymanski) - Related Data Home Medications Medication Instructions Recorded Confirmed FLUoxetine HCL [PROzac] 20 mg PO DAILY 04/26/22 05/07/23 FLUoxetine HCL [PROzac] 40 mg PO DAILY 04/26/22 05/07/23 Isosorbide Mononitrate ER [Imdur] 90 mg PO DAILY 04/26/22 05/07/23 Nitroglycerin Sl Tabs [Nitrostat] 0.4 mg SL Q5M PRN 04/26/22 05/07/23 rOPINIRole HCL [Requip] 0.5 mg PO TID 04/26/22 05/07/23 Azelastine HCl [Astelin Nasal 1 spr EA NOSTRIL BID 04/01/23 05/07/23 [place]] Losartan [Cozaar] 25 mg PO DAILY 04/01/23 05/07/23 Ezetimibe [Zetia] 10 mg PO DAILY 04/16/23 05/07/23 Famotidine [Pepcid] 20 mg PO HS PRN 04/16/23 05/07/23 Sucralfate [Carafate] 1 gm PO DIRECTED 05/07/23 05/07/23 Previous Rx's Medication Instructions Recorded Ipratropium-Albuterol Nebulize 3 ml INHALATION RT-QID 30 Days 01/30/23 [Duoneb 0.5 mg-3 mg/3 ml Soln] #120 each Simethicone Chew [Mylicon Chew] 40 mg PO QID #90 tab 04/02/23 Metoprolol Tartrate [Lopressor] 50 mg PO BID-W/MEALS 30 Days #60 04/18/23 tab Pantoprazole [Protonix] 40 mg PO AC-BRKFST 30 Days #30 tab 04/18/23 Ranolazine [Ranexa] 500 mg PO Q12HR #60 tab 04/18/23 Aspirin 81 mg PO DAILY 30 Days #30 tab 05/09/23 Allergies Allergy/AdvReac Type Severity Reaction Status Date / Time codeine Allergy Anaphylaxis Verified 05/18/23 07:43 peanut Allergy Migraine/Allergy Verified 05/18/23 07:43 testing Review of Systems ROS Other: All systems not noted in ROS Statement are negative. <Junaid Meade - Last Filed: 05/18/23 07:46> ROS Other: All systems not noted in ROS Statement are negative. Constitutional: Denies: fever Eyes: Denies: eye pain ENT: Denies: ear pain Respiratory: Denies: cough Cardiovascular: Reports: as per HPI, chest pain Endocrine: Denies: fatigue Gastrointestinal: Denies: vomiting Musculoskeletal: Denies: back pain <Jose R Szymanski - Last Filed: 05/18/23 12:00> ROS Statement: Those systems with pertinent positive or pertinent negative responses have been documented in the HPI. EKG Findings - EKG Results: EKG: interpreted by ERMD, sinus rhythm, normal axis, normal QRS, normal ST/T <Jose R Szymanski - Last Filed: 05/18/23 12:00> Past Medical History Past Medical History: Chest Pain / Angina, COPD, CVA/TIA, GERD/Reflux, Hyperlipidemia, Hypertension, Myocardial Infarction (NE), Osteoarthritis (OA), Pneumonia Additional Past Medical History / Comment(s): COVID April 2022 and December 2022, multiple MIs, TIA, peripheral vision loss of left eye, white mass on brain in MRI, wears o2 at home 3L at night prn, heart monitor from cardiology office r/t tachycardia Last Myocardial Infarction Date:: 2020 History of Any Multi-Drug Resistant Organisms: None Reported Past Surgical History: Heart Catheterization With Stent Additional Past Surgical History / Comment(s): 2 cardiac stents Past Anesthesia/Blood Transfusion Reactions: No Reported Reaction Date of Last Stent Placement:: 2020 Past Psychological History: Anxiety Smoking Status: Former smoker Past Alcohol Use History: None Reported Past Drug Use History: None Reported - Past Family History Father Family Medical History: Myocardial Infarction ([place]) Additional Family Medical History / Comment(s): from [place] Brother(s) Family Medical History: Myocardial Infarction ([place]) Additional Family Medical History / Comment(s): from [place] <Junaid Meade - Last Filed: 05/18/23 07:46> General Exam Limitations: no limitations <Junaid Meade - Last Filed: 05/18/23 07:46> Limitations: no limitations General appearance: alert, in no apparent distress Head exam: Present: normocephalic Eye exam: Present: normal appearance Neck exam: Present: normal inspection Respiratory exam: Present: normal lung sounds bilaterally. Absent: chest wall tenderness Cardiovascular Exam: Present: regular rate, normal rhythm, normal heart sounds Expanded Peripheral pulses: 2+: Radial (R), Radial (L), Dorsalis Pedis (R), Dorsalis Pedis (L) GI/Abdominal exam: Present: soft. Absent: tenderness Extremities exam: Present: normal inspection. Absent: pedal edema, calf tenderness Neurological exam: Present: alert Psychiatric exam: Present: normal affect, normal mood Skin exam: Present: normal color <Jose R Szymanski - Last Filed: 05/18/23 12:00> - General Exam Comments Initial Comments: Visual Physical Exam Vital signs reviewed General: Well-appearing, nontoxic, no acute distress. Head: Normocephalic, atraumatic Eyes: PERRLA, EOMI ENT: Airway patent Chest: Nonlabored breathing Skin: No visual rash, normal skin tone Neuro: Alert and oriented 3 Musculoskeletal: No gross abnormalities (Junaid Meade) Course Vital Signs 05/18/23 05/18/23 05/18/23 07:41 11:12 11:53 Temperature 97.5 F L 97 F L Pulse Rate 83 79 67 Respiratory 18 16 18 Rate Blood Pressure 174/81 149/81 142/72 O2 Sat by Pulse 97 96 98 Oximetry Chest Pain MDM <Junaid Meade - Last Filed: 05/18/23 07:46> <SzymanskiJose R - Last Filed: 05/18/23 12:00> - MDM I completed the quick note portion of this chart signed Junaid Meade PA-C (Junaid Meade) Was pt. sent in by a medical professional or institution ([facility], [facility], urgent care, hospital, or [place] health [place] facility...) When possible be specific @ -No Did you speak to anyone other than the patient for history (EMS, parent, family, police, friend...)? What history was obtained from this source @ -Family is present that helps confirm history Did you review nursing and triage notes (agree or disagree)? Why? @ -I reviewed and agree with nursing and triage notes Were old charts reviewed (outside hosp., previous admission, EMS record, old EKG, old radiological studies, urgent care reports/EKG's, [place] health [place] facility records)? Report findings @ -Of his admission and troponins reviewed Differential Diagnosis (chest pain, altered mental status, abdominal pain women, abdominal pain men, vaginal bleeding, weakness, fever, dyspnea, syncope, headache, dizziness, GI bleed, back pain, seizure, CVA, palpatations, mental health, musculoskeletal)? @ -not applicable EKG interpreted by me (3pts min.). @ -As above X-rays interpreted by me (1pt min.). @ -Chest x-ray shows no acute process CT interpreted by me (1pt min.). @ -None done U/S interpreted by me (1pt. min.). @ -None done What testing was considered but not performed or refused? (CT, X-rays, U/S, labs)? Why? @ -None What meds were considered but not given or refused? Why? @ -None Did you discuss the management of the patient with other professionals (professionals i.e. [facility], [facility], lab, RT, psych nurse, social worker assistant, dramatic director, teacher, third officer, porter sample case)? Give summary @ -[facility] paged for admission covering for Dr. Rosa Maria Burgos. Case was discussed with Dr. Todd Was smoking cessation discussed for >3mins.? @ -No Was critical care preformed (if so, how long)? @ -No Were there social determinants of health that impacted care today? How? (Ho melessness, low income, unemployed, alcoholism, drug addiction, transportation, low edu. Level, literacy, decrease access to med. care, long term, rehab)? @ -No Was there de-escalation of care discussed even if they declined (Discuss DNR or withdrawal of care, Hospice)? DNR status @ -No What co-morbidities impacted this encounter? (DM, HTN, Smoking, COPD, CAD, Cancer, CVA, ARF, Chemo, Hep., AIDS, mental health diagnosis, sleep apnea, morbid obesity)? @ -History of cardiac disease with recent myocardial infarction Was patient admitted / discharged? Hospital course, mention meds given and route, prescriptions, significant lab abnormalities, going to OR and other pertinent info. @ -Patient will be admitted. Admission orders written. Patient will have consult placed for cardiology. Patient is updated on plan. Patient is symptom- free at this time. Undiagnosed new problem with uncertain prognosis? @ -No Drug Therapy requiring intensive monitoring for toxicity (Heparin, Nitro, Insulin, Cardizem)? @ -No Were any procedures done? @ -No Diagnosis/symptom? @ -Chest pain Acute, or Chronic, or Acute on Chronic? @ -Acute Uncomplicated (without systemic symptoms) or Complicated (systemic symptoms)? @ -default Side effects of treatment? @ -No Exacerbation, Progression, or Severe Exacerbation? @ -No Poses a threat to life or bodily function? How? (Chest pain, [place], [place], pneumonia, PE, COPD, DKA, ARF, appy, cholecystitis, CVA, Diverticulitis, Homicidal, Suicidal, threat to staff... and all critical care pts) @ -No (Jose R Szymanski) Disposition <Junaid Meade - Last Filed: 05/18/23 07:46> Is patient prescribed a controlled substance at d/c from ED?: No Time of Disposition: 11:57 <Jose R Szymanski - Last Filed: 05/18/23 12:00> Clinical Impression: Chest pain Disposition: ADMITTED IP TO THIS HOSP Referrals: Yara Wong MD [Primary Care Provider] - 1-2 days
[2023-05-18 08:27] LABS: Basophils % (A) 1 %; Eosinophils # (A) 0.2 k/uL (0-0.7); Eosinophils % (A) 4 %; HCT 42.1 % (39.0-53.0); HGB 14.6 gm/dL (13.0-17.5); Lymphocytes # (A) 1.3 k/uL (1.0-4.8); Lymphocytes % (A) 20 %; MCH 29.8 pg (25.0-35.0); MCHC 34.6 g/dL (31.0-37.0); MCV 86.1 fL (80.0-100.0); Mean Platelet Volume 7.4; Monocytes # (A) 0.5 k/uL (0-1.0); Monocytes % (A) 7 %; Neutrophils # (A) 4.4 k/uL (1.3-7.7); Neutrophils % (A) 66 %; Platelet Count 272 k/uL (150-450); RBC 4.89 m/uL (4.30-5.90); RDW 14.2 % (11.5-15.5); WBC 6.8 k/uL (3.8-10.6)
--- NOTE | 2023-05-18 08:34 | XR ---
EXAMINATION TYPE: XR chest 2V DATE OF EXAM: 05/18/2023 COMPARISON: CTA chest 11 days earlier HISTORY: Chest pain for one day TECHNIQUE: Frontal and lateral views of the chest are obtained. FINDINGS: Background chronic emphysematous changes are redemonstrated. There is no focal air space op acity, pleural effusion, or pneumothorax seen. The cardiac silhouette size is stable and within norm al limits. The osseous structures are intact. IMPRESSION: Chronic emphysematous change without acute pulmonary process.
[2023-05-18 08:46] LABS: Prothrombin Time 10.7 sec (10.0-12.5)
[2023-05-18 08:49] LABS: ALT 33 U/L (4-49); AST 28 U/L (17-59); African American GFR (CKD) 90 (>60 ml/min/1.73 sqM); Albumin 4.1 g/dL (3.5-5.0); Alkaline Phosphatase 80 U/L (38-126); Anion Gap 11 mmol/L; Blood Urea Nitrogen 12 mg/dL (9-20); Calcium 9.5 mg/dL (8.4-10.2); Carbon Dioxide 23 mmol/L (22-30); Chloride 103 mmol/L (98-107); Glucose 143 mg/dL (74-99); Magnesium 1.7 mg/dL (1.6-2.3); Non-African American GFR(CKD) 78 (>60 ml/min/1.73 sqM); Potassium 4.5 mmol/L (3.5-5.1); Sodium 137 mmol/L (137-145); Total Bilirubin 0.5 mg/dL (0.2-1.3); Total Protein 6.9 g/dL (6.3-8.2)
[2023-05-18] MEDS ORDERED: ASPIRIN 81 MG PO STA (11:58)
[2023-05-18] MEDS ORDERED: NITROGLYCERIN SL TABS 0.4 MG TAB SUBLINGUAL PRN (11:58)
[2023-05-18] MEDS: NITROGLYCERIN OINT 1 INCH/GM PACKET TOPICAL SCH ×3 (12:33→21:45)
[2023-05-18] MEDS ORDERED: FAMOTIDINE 20 MG TAB PO PRN (14:28)
[2023-05-18] MEDS: FLUoxetine HCL 20 MG CAP PO SCH ×2 (14:50)
[2023-05-18] MEDS: PANTOPRAZOLE 40 MG TABLET PO SCH (14:51)
[2023-05-18] MEDS: IPRATROPIUM-ALBUTEROL 3 ML NEB INHALATION SCH ×2 (20:42)
[2023-05-18] MEDS ORDERED: RANOLAZINE 500 MG TAB.ER.12H PO SCH (21:00)
[2023-05-18] MEDS: METOPROLOL TARTRATE 50 MG TAB PO SCH (21:41)
[2023-05-18] MEDS: SUCRALFATE 1 GM TAB PO SCH (21:41)
[2023-05-18] MEDS: SIMETHICONE 80 MG CHEWABLE PO SCH ×2 (21:41→21:45)
[2023-05-18] MEDS: AZELASTINE 137MCG/SPRAY EA NOSTRIL SCH (21:42)
--- NOTE | 2023-05-18 23:29 | HP ---
HISTORY AND PHYSICAL CHIEF COMPLAINT: Chest pain. HISTORY OF PRESENT ILLNESS: This is a 63-year-old gentleman with a past medical history of multiple medical problems, who was recently admitted with chest pain. The patient had PCI in March. The patient complains of chest pain mainly on the left side at this time. There is no history of any fever, rigor, or chills at this time. PAST MEDICAL HISTORY: Reviewed includes CAD and PCI. Rest of the history and rest of the chart are also reviewed. HOME MEDICATIONS: Reviewed include Requip. Doses and rest of the medications are noted. ALLERGIES: Codeine. FAMILY HISTORY: History of myocardial infarction. SOCIAL HISTORY: Previous history of smoking. REVIEW OF SYSTEMS: Fourteen-point review is negative except as mentioned earlier. PHYSICAL EXAMINATION: VITAL SIGNS: Pulse is 67, blood pressure 142/70, respirations 18. HEENT: Conjunctivae are normal. NECK: No jugular venous distention. CARDIOVASCULAR: S1 and S2. RESPIRATORY: Breath sounds diminished at the bases. ABDOMEN: Soft and nontender. LEGS: No edema. NERVOUS SYSTEM: Nonfocal. SKIN: No ulcers or rashes. JOINTS: No active deforming arthropathy. LABORATORY DATA: Troponins are negative. The EKG which I reviewed personally showed ST-T changes. ASSESSMENT: 1. Chest pain, possible unstable angina. 2. History of coronary artery disease and stent. 3. Chronic obstructive pulmonary disease. 4. Gastroesophageal reflux disease. 5. History of myocardial infarction. 6. Family history of coronary artery disease. 7. History of COVID. 8. Multiple complex medical issues. RECOMMENDATIONS: Recommend to continue current medications. Continue symptomatic treatment. Otherwise, we will resume the home medications. Antiplatelet agents. Cardiology consultation. Recommend 2D echo with Doppler and evaluate the patient for pericarditis as well. Prognosis is guarded. Further recommendations to follow. MMODL / IJN: [id number] /
[2023-05-19] MEDS: NITROGLYCERIN OINT 1 INCH/GM PACKET TOPICAL SCH (07:25)
[2023-05-19] MEDS: PANTOPRAZOLE 40 MG TABLET PO SCH (07:25)
[2023-05-19] MEDS: METOPROLOL TARTRATE 50 MG TAB PO SCH (07:25)
[2023-05-19] MEDS: IPRATROPIUM-ALBUTEROL 3 ML NEB INHALATION SCH ×2 (08:47→11:42)
[2023-05-19] MEDS ORDERED: RANOLAZINE 500 MG TAB.ER.12H PO SCH (09:00)
[2023-05-19] MEDS ORDERED: ISOSORBIDE MONONITRATE ER 30 MG TAB.ER.24H PO SCH (09:00)
[2023-05-19] MEDS ORDERED: LOSARTAN 25 MG TAB PO SCH (09:00)
[2023-05-19] MEDS ORDERED: EZETIMIBE 10 MG TAB PO SCH (09:00)
[2023-05-19] MEDS ORDERED: ASPIRIN 325 MG TAB PO SCH (09:00)
[2023-05-19] MEDS: FLUoxetine HCL 20 MG CAP PO SCH ×2 (09:06)
[2023-05-19] MEDS: SUCRALFATE 1 GM TAB PO SCH (09:08)
[2023-05-19] MEDS: SIMETHICONE 80 MG CHEWABLE PO SCH (09:10)
[2023-05-19] MEDS: AZELASTINE 137MCG/SPRAY EA NOSTRIL SCH (09:10)
--- NOTE | 2023-05-19 09:31 | P.CRDCN ---
History of Present Illness Consult date: 05/19/23 Consult reason: chest pain History of present illness: History of present illness: This is a 63-year-old male patient of Dr. Fonseca with past medical history of COPD, chronic hypoxic respiratory failure on O2, hypertension, hyperlipidemia, coronary artery disease with prior stenting done in [place], neurological changes versus possible MS. We have been asked to evaluate the patient for chest pain. Chest pain started last evening and he took 5 nitroglycerin but did not seem to change his pain. He also had some minimal shortness of breath. No nausea, no diaphoresis. Patient was hospitalized last week for non-ST elevated myocardial infarction underwent left heart catheterization which revealed coronary artery disease with proximal circumflex 50-60% stenosis, ostial OM 380% stenosis of the previous jailed OM3 branch, 20/30 percent stenosis. Elevated left-sided filling pressures. iFR normal of proximal circumflex. The jailed OM 3 branch appeared to be old and therefore treated medically. Patient is seen today in the emergency center waiting for a bed on the observation unit. EKG sinus rhythm with no acute ST changes Chest x-ray: Chronic emphysematous changes without acute pulmonary process. CBC is unremarkable. Sed rate 7. INR 1. Electrolytes and renal function normal. Blood sugar 143. Troponin negative 3. C-reactive protein 1.1. Liver function tests are normal. Magnesium 1.7. Home cardiac medications: Aspirin 81 mg daily, Zetia 10 mg daily, Imdur 90 mg daily, losartan 25 mg daily, Lopressor 50 mg twice daily, Nitrostat as needed, Ranexa 500 mg every 12 hours. Echocardiogram performed 05/08/2023 revealed EF of 55-60%. Review Of Systems: At the time of my evaluation: Constitutional: No fever, no chills. No weakness, fatigue or lethargy. EENT: No headache. No dizziness. Lungs: No shortness of breath, cough, no sputum production. No wheezing. Cardiovascular: No chest pain, no lower extremity edema. No palpitations. No paroxysmal nocturnal dyspnea. No orthopnea. No lightheadedness or dizziness. No syncopal episodes. Abdominal: No abdominal pain. No nausea, vomiting. No diarrhea. No constipation. No bloody or tarry stools. Genitourinary: No dysuria.. No urinary retention. Musculoskeletal: No myalgias. No muscle weakness, no frequent falls. No back pain. No neck pain. Integumentary: No wounds. No rash. No unusual bruising. Neurologic: No aphasia. No facial droop. No change in mentation. No head injury. No headache. Physical examination: Gen: This is a 63-year-old male. He is resting on ER stretcher, in no acute distress, no respiratory distress. VS: reviewed blood pressure 120/72, heart rate in the 60s, afebrile, pulse ox 98% on 3 L nasal cannula. HEENT: Head is atraumatic, normocephalic. Pupils equal, round. Sclerae is anicteric. NECK: Supple. No JVD. LUNGS: Bilateral scattered wheezing. No intercostal retractions. HEART: Regular rate and rhythm. No murmur. ABDOMEN: Soft No tenderness. EXTREMITIES: No pedal edema. NEUROLOGICAL: Patient is awake, alert and oriented x3. Assessment: Chest pain, possible unstable angina Recent non-ST elevated myocardial infarction Previous coronary artery stenting COPD Chronic hypoxic respiratory failure on home O2 Hypertension Hyperlipidemia Plan: Continue patient's home cardiac medications with the following changes Increase Ranexa to 1000 mg twice daily Discontinue Nitropaste No need to repeat echocardiogram. Canceled echocardiogram order. Ambulate patient and is pain-free this afternoon, patient is cleared for discharge may follow-up as previously scheduled with Dr. Fonseca Thank you kindly for this consultation. Nurse practitioner note has been reviewed, I agree with documented findings and plan of care. Patient was seen and examined. Past Medical History Past Medical History: Chest Pain / Angina, COPD, CVA/TIA, GERD/Reflux, Hype rlipidemia, Hypertension, Myocardial Infarction (PR), Osteoarthritis (OA), Pneumonia Additional Past Medical History / Comment(s): COVID April 2022 and December 2022, multiple MIs, TIA, peripheral vision loss of left eye, white mass on brain in MRI, wears o2 at home 3L at night prn, heart monitor from cardiology office r/t tachycardia Last Myocardial Infarction Date:: 2020 History of Any Multi-Drug Resistant Organisms: None Reported Past Surgical History: Heart Catheterization With Stent Additional Past Surgical History / Comment(s): 2 cardiac stents Past Anesthesia/Blood Transfusion Reactions: No Reported Reaction Date of Last Stent Placement:: 2020 Past Psychological History: Anxiety Smoking Status: Former smoker Past Alcohol Use History: None Reported Past Drug Use History: None Reported - Past Family History Father Family Medical History: Myocardial Infarction (PR) Additional Family Medical History / Comment(s): from PR Brother(s) Family Medical History: Myocardial Infarction (PR) Additional Family Medical History / Comment(s): from PR Medications and Allergies Home Medications Medication Instructions Recorded Confirmed Type FLUoxetine HCL [PROzac] 20 mg PO DAILY 04/26/22 05/18/23 History FLUoxetine HCL [PROzac] 40 mg PO DAILY 04/26/22 05/18/23 History Isosorbide Mononitrate ER [Imdur] 90 mg PO DAILY 04/26/22 05/18/23 History Nitroglycerin Sl Tabs [Nitrostat] 0.4 mg SL Q5M PRN 04/26/22 05/18/23 History rOPINIRole HCL [Requip] 0.5 mg PO TID 04/26/22 05/18/23 History Ipratropium-Albuterol Nebulize 3 ml INHALATION RT-QID 30 Days 01/30/23 05/18/23 Rx [Duoneb 0.5 mg-3 mg/3 ml Soln] #120 each Azelastine HCl [Astelin Nasal 1 spr EA NOSTRIL BID 04/01/23 05/18/23 History [place]] Losartan [Cozaar] 25 mg PO DAILY 04/01/23 05/18/23 History Simethicone Chew [Mylicon Chew] 40 mg PO QID #90 tab 04/02/23 05/18/23 Rx Ezetimibe [Zetia] 10 mg PO DAILY 04/16/23 05/18/23 History Famotidine [Pepcid] 20 mg PO HS PRN 04/16/23 05/18/23 History Metoprolol Tartrate [Lopressor] 50 mg PO BID-W/MEALS 30 Days #60 04/18/23 05/18/23 Rx tab Pantoprazole [Protonix] 40 mg PO AC-BRKFST 30 Days #30 tab 04/18/23 05/18/23 Rx Ranolazine [Ranexa] 500 mg PO Q12HR #60 tab 04/18/23 05/18/23 Rx Sucralfate [Carafate] 1 gm PO BID 05/07/23 05/18/23 History Aspirin 81 mg PO DAILY 30 Days #30 tab 05/09/23 05/18/23 Rx Allergies Allergy/AdvReac Type Severity Reaction Status Date / Time codeine Allergy Anaphylaxis Verified 05/18/23 12:44 peanut Allergy Migraine/Allergy Verified 05/18/23 12:44 testing Physical Exam Vitals: Vital Signs Temp Pulse Pulse Resp BP BP Pulse Ox 05/19/23 02:00 121/74 05/18/23 20:54 70 05/18/23 20:43 74 05/18/23 20:00 84 135/78 05/18/23 19:00 76 18 118/80 05/18/23 15:28 79 18 101/81 05/18/23 14:52 81 18 149/84 96 05/18/23 12:32 67 18 123/80 05/18/23 11:53 67 18 142/72 98 05/18/23 11:12 97 F L 79 16 149/81 96 Intake and Output 05/18/23 05/19/23 05/19/23 22:59 06:59 14:59 Other: # Voids 2 1 Results 05/18/23 07:52 05/18/23 07:52 Cardiac Enzymes 05/18/23 05/18/23 05/18/23 Range/Units 07:52 07:52 12:08 AST 28 (17-59) U/L Troponin I <0.012 <0.012 (0.000-0.034) ng/mL 05/18/23 Range/Units 14:26 AST (17-59) U/L Troponin I <0.012 (0.000-0.034) ng/mL Coagulation 05/18/23 Range/Units 07:52 PT 10.7 (10.0-12.5) sec APTT 25.0 (22.0-30.0) sec CBC 05/18/23 Range/Units 07:52 WBC 6.8 (3.8-10.6) k/uL RBC 4.89 (4.30-5.90) m/uL Hgb 14.6 (13.0-17.5) gm/dL Hct 42.1 (39.0-53.0) % Plt Count 272 (150-450) k/uL Comprehensive Metabolic Panel 05/18/23 Range/Units 07:52 Sodium 137 (137-145) mmol/L Potassium 4.5 (3.5-5.1) mmol/L Chloride 103 (98-107) mmol/L Carbon Dioxide 23 (22-30) mmol/L BUN 12 (9-20) mg/dL Creatinine 1.02 (0.66-1.25) mg/dL Glucose 143 H (74-99) mg/dL Calcium 9.5 (8.4-10.2) mg/dL AST 28 (17-59) U/L ALT 33 (4-49) U/L Alkaline Phosphatase 80 (38-126) U/L Total Protein 6.9 (6.3-8.2) g/dL Albumin 4.1 (3.5-5.0) g/dL Current Medications Generic Name Dose Route Start Last Admin Trade Name Freq PRN Reason Stop Dose Admin Albuterol/Ipratropium 3 ml 05/18/23 16:00 05/18/23 20:42 Ipratropium-Albuterol 3 Ml Neb INHALATION 3 ml RT-QID MAIKEL Administration Aspirin 325 mg 05/19/23 09:00 Aspirin 325 Mg Tab PO DAILY [facility] Azelastine HCl 1 spray 05/18/23 21:00 05/18/23 21:42 Azelastine 137mcg/[place] EA NOSTRIL 1 spray BID MAIKEL Administration Ezetimibe 10 mg 05/19/23 09:00 Ezetimibe 10 Mg Tab PO DAILY [facility]IK[facility] Famotidine 20 mg 05/18/23 14:28 Famotidine 20 Mg Tab PO HS PRN GI Upset Fluoxetine HCl 20 mg 05/18/23 14:30 05/18/23 14:50 Fluoxetine Hcl 20 Mg Cap PO 20 mg DAILY [facility]IKEL Administration Fluoxetine HCl 40 mg 05/18/23 14:30 05/18/23 14:50 Fluoxetine Hcl 20 Mg Cap PO 40 mg DAILY [facility]IKEL Administration Isosorbide Mononitrate 90 mg 05/19/23 09:00 Isosorbide Mononitrate Er 30 Mg Tab.Er.24h PO DAILY [facility] Losartan Potassium 25 mg 05/19/23 09:00 Losartan 25 Mg Tab PO DAILY [facility] Metoprolol Tartrate 50 mg 05/18/23 17:30 05/19/23 07:25 Metoprolol Tartrate 50 Mg Tab PO 50 mg BID-W/MEALS MAIKEL Administration Nitroglycerin 0.4 mg 05/18/23 11:58 05/18/23 15:05 Nitroglycerin Sl Tabs 0.4 Mg Tab SUBLINGUAL 0.4 mg Q5M PRN Administration Chest Pain Nitroglycerin 1 inch 05/18/23 12:00 05/19/23 07:25 Nitroglycerin Oint 1 Inch/Gm Packet TOPICAL Not Given Q6HR [facility] Pantoprazole Sodium 40 mg 05/18/23 14:30 05/19/23 07:25 Pantoprazole 40 Mg Tablet PO 40 mg AC-BRKFST [facility] Administration Ranolazine 1,000 mg 05/19/23 09:00 Ranolazine 500 Mg Tab.Er.12h PO Q12HR [facility] Ropinirole HCl 0.5 mg 05/18/23 16:00 05/18/23 21:41 Ropinirole Hcl 0.25 Mg Tab PO 0.5 mg TID [facility] Administration Simethicone 40 mg 05/18/23 18:00 05/18/23 21:45 Simethicone 80 Mg Chewable PO Not Given QID [facility] Sucralfate 1 gm 05/18/23 21:00 05/18/23 21:41 Sucralfate 1 Gm Tab PO 1 gm BID [facility] Administration Intake and Output 05/18/23 05/19/23 05/19/23 22:59 06:59 14:59 Other: # Voids 2 1 05/18/23 07:52 05/18/23 07:52
[2023-05-19 11:05] LABS: Basophils # (A) 0.07 X 10*3/uL (0.00-0.10); Basophils % (A) 1.1 %; Eosinophils # (A) 0.25 X 10*3/uL (0.04-0.35); HGB 13.3 g/dL (13.0-17.0); Lymphocytes # (A) 1.55 X 10*3/uL (0.90-5.00); MCH 29.3 pg (27.0-32.0); MCHC 34.1 g/dL (32.0-37.0); MCV 85.9 FL (80.0-97.0); Mean Platelet Volume 9.4 FL (9.5-12.2); Monocytes # (A) 0.75 X 10*3/uL (0.20-1.00); Monocytes % (A) 12.1 %; NRBC Per 100 WBC 0 X 10*3/uL (0.00-0.01); Neutrophils # (A) 3.54 X 10*3/uL (1.80-7.70); Neutrophils % (A) 57.3 %; Platelet Count 253 X 10*3/uL (140-440); RBC 4.54 X 10*6/uL (4.40-5.60); RDW 13.5 % (11.5-14.5); WBC 6.19 X 10*3/uL (4.50-10.00)
[2023-05-19 11:19] LABS: ALT 32 U/L (10-49); AST 23 U/L (14-35); Albumin 3.8 g/dL (3.8-4.9); Albumin/Globulin Ratio 1.81 Ratio (1.60-3.17); Alkaline Phosphatase 75 U/L (41-126); BUN/Creat Ratio 12.09 Ratio (12.00-20.00); Blood Urea Nitrogen 13.3 mg/dL (9.0-27.0); Calcium 9.3 mg/dL (8.7-10.3); Carbon Dioxide 26.2 mmol/L (21.6-31.8); Chloride 105 mmol/L (96-109); Chol/HDL Ratio 6.95 Ratio; Globulin 2.1 g/dL (1.6-3.3); Glucose 111 mg/dL (70-110); Potassium 4.8 mmol/L (3.5-5.5); Sodium 141 mmol/L (135-145); Total Bilirubin 0.4 mg/dL (0.3-1.2); Total Protein 5.9 g/dL (6.2-8.2)
[2023-05-19 19:20] VITALS: BP 128/87; PULSE 81; RESP 18; TEMP 97.6
--- NOTE | 2023-05-20 06:12 | P.DS ---
Providers Date of admission: 05/18/23 11:58 Expected date of discharge: 05/19/23 Attending physician: Kye Todd MD Consults: 05/18/23 11:58 Consult Physician Urgent Consulting Provider: Te Fonseca Consult Reason/Comments: cp Do you want consulting provider notified?: Yes Primary care physician: Yara Wong Hospital Course: Final diagnosis Chest pain, unstable angina, ACS ruled out History of coronary artery disease and stenting recently Chronic obstructive pulmonary disease history Gastroesophageal reflux disease History of myocardial infarction History of Covid GI prophylaxis DVT prophylaxis Full code Discharge disposition Patient is being discharged in a stable condition with guarded prognosis to home. Patient will follow-up with Dr. Maxi Burgos in the outpatient setting upon discharge. Patient is to continue with current medications and close outpatient follow-up with Dr. Fonseca as scheduled. Total time taken is greater than 35 minutes. Hospital course This is a 63-year-old male who was recently admitted with chest pain and ACS ruled out. Patient seen and evaluated by cardiology and had a recent hospitalization earlier this month underwent stenting and follows with Dr. Fonseca outpatient. Patient does have an appointment tomorrow and has been instructed to keep this appointment. Patient has been cleared by cardiology for discharge home today. Please refer to cardiology no for further HPI. Patient also with COPD history instructed to follow up with pulmonary outpatient as well. Currently no reports of chest pain, shortness of breath, or palpitations. Patient is afebrile. No reports of nausea or vomiting and patient is tolerating diet. Patient will be discharged home today. Guarded prognosis and high risk for readmissions and patient has had multiple ER visits and hospitalizations recently. Physical exam: Gen: This is a 63-year-old male who is awake, alert and oriented 3, well- developed, well-nourished HEENT: Head is atraumatic, normocephalic. Pupils equal, round. Sclerae is anicteric. NECK: Supple. No JVD. No lymphadenopathy. No thyromegaly. LUNGS: Clear to auscultation. No wheezes, course rhonchi. No intercostal retractions. HEART: Regular rate and rhythm. No murmur. ABDOMEN: Soft. Bowel sounds are present. No masses. No tenderness. EXTREMITIES: No pedal edema. No calf tenderness. NEUROLOGICAL: Patient is awake, alert and oriented x3. Cranial nerves 2 through 12 are grossly intact. Please refer to medication reconciliation sheet for a list of medications. The impression and plan of care has been dictated by Geovanna Vidal, Nurse Practitioner as directed. Dr. uAbrey MD I have performed a history and examination and MDM of this patient, discussed the same with the dictator, and agree with the dictator's assessment and plan as written ,documented as a scribe. Based on total visit time, I have performed more than 50% of the visit. Patient Condition at Discharge: Stable Plan - Discharge Summary New Discharge Prescriptions: New Ranolazine [Ranexa] 1,000 mg PO Q12HR 30 Days #120 tab Continue Isosorbide Mononitrate ER [Imdur] 90 mg PO DAILY FLUoxetine HCL [PROzac] 40 mg PO DAILY Nitroglycerin Sl Tabs [Nitrostat] 0.4 mg SL Q5M PRN PRN Reason: Chest Pain rOPINIRole HCL [Requip] 0.5 mg PO TID Ipratropium-Albuterol Nebulize [Duoneb 0.5 mg-3 mg/3 ml Soln] 3 ml INHALATION RT-QID 30 Days #120 each Azelastine HCl [Astelin Nasal [place]] 1 spr EA NOSTRIL BID Pantoprazole [Protonix] 40 mg PO AC-BRKFST 30 Days #30 tab Sucralfate [Carafate] 1 gm PO BID FLUoxetine HCL [PROzac] 20 mg PO DAILY Losartan [Cozaar] 25 mg PO DAILY Simethicone Chew [Mylicon Chew] 40 mg PO QID #90 tab Famotidine [Pepcid] 20 mg PO HS PRN PRN Reason: Gi Upset Ezetimibe [Zetia] 10 mg PO DAILY Metoprolol Tartrate [Lopressor] 50 mg PO BID-W/MEALS 30 Days #60 tab Aspirin 81 mg PO DAILY 30 Days #30 tab Discontinued Ranolazine [Ranexa] 500 mg PO Q12HR #60 tab Discharge Medication List FLUoxetine HCL [PROzac] 20 mg PO DAILY 04/26/22 [History] FLUoxetine HCL [PROzac] 40 mg PO DAILY 04/26/22 [History] Isosorbide Mononitrate ER [Imdur] 90 mg PO DAILY 04/26/22 [History] Nitroglycerin Sl Tabs [Nitrostat] 0.4 mg SL Q5M PRN 04/26/22 [History] rOPINIRole HCL [Requip] 0.5 mg PO TID 04/26/22 [History] Ipratropium-Albuterol Nebulize [Duoneb 0.5 mg-3 mg/3 ml Soln] 3 ml INHALATION RT-QID 30 Days #120 each 01/30/23 [Rx] Azelastine HCl [Astelin Nasal [place]] 1 spr EA NOSTRIL BID 04/01/23 [History] Losartan [Cozaar] 25 mg PO DAILY 04/01/23 [History] Simethicone Chew [Mylicon Chew] 40 mg PO QID #90 tab 04/02/23 [Rx] Ezetimibe [Zetia] 10 mg PO DAILY 04/16/23 [History] Famotidine [Pepcid] 20 mg PO HS PRN 04/16/23 [History] Metoprolol Tartrate [Lopressor] 50 mg PO BID-W/MEALS 30 Days #60 tab 04/18/23 [Rx] Pantoprazole [Protonix] 40 mg PO AC-BRKFST 30 Days #30 tab 04/18/23 [Rx] Sucralfate [Carafate] 1 gm PO BID 05/07/23 [History] Aspirin 81 mg PO DAILY 30 Days #30 tab 05/09/23 [Rx] Ranolazine [Ranexa] 1,000 mg PO Q12HR 30 Days #120 tab 05/19/23 [Rx] Follow up Appointment(s)/Referral(s): Yara Wong MD [Primary Care Provider] - 1-2 days Te Fonseca DO [STAFF PHYSICIAN] - 2 Weeks (Patient reports has an appointment with Dr. Fonseca tomorrow and instructed to keep that appointment) Patient Instructions/Handouts: Chest Pain (DC) Activity/Diet/Wound Care/Special Instructions: Activity Limited until follow-up Follow-up with cardiology at your scheduled appointment tomorrow Follow-up with primary care provider on discharge Continue taking medications as prescribed Discharge Disposition: HOME SELF-CARE
== END 2023-05-19 14:00 | disposition home or self-care (01) ==
LOC: EC 07:36 → 6NMEDSUR 11:58
PROVIDERS: ADMIT Internal Medicine; ATTEND Internal Medicine
DX: I25.110 Atherosclerotic heart disease of native coronary artery with unstable angina pectoris (principal); J44.9 Chronic obstructive pulmonary disease, unspecified; K21.9 Gastro-esophageal reflux disease without esophagitis; E78.5 Hyperlipidemia, unspecified; I10 Essential (primary) hypertension; F41.9 Anxiety disorder, unspecified; J96.11 Chronic respiratory failure with hypoxia; I25.2 Old myocardial infarction; Z86.16 Personal history of COVID-19; Z86.73 Personal history of transient ischemic attack (TIA), and cerebral infarction without residual deficits; Z87.891 Personal history of nicotine dependence; Z95.5 Presence of coronary angioplasty implant and graft; Z99.81 Dependence on supplemental oxygen; Z79.899 Other long term (current) drug therapy; Z79.82 Long term (current) use of aspirin; Z88.5 Allergy status to narcotic agent; Z82.49 Family history of ischemic heart disease and other diseases of the circulatory system
CPT/HCPCS: 99285; 36415; 94640 ×3; 94760; 93005; 80061; 80053 ×2; 85652; 83735; 84484; 85025 ×2; 85610; 85730; 86140; 71046; G0378 ×2

== ENCOUNTER 2023-08-13 18:59 | Observation (INO) | payer MEDICARE, OTHER ==
[2023-08-13 19:54] LABS: Basophils % (A) 0 %; Eosinophils # (A) 0.1 k/uL (0-0.7); Eosinophils % (A) 1 %; HCT 46.3 % (39.0-53.0); HGB 15.9 gm/dL (13.0-17.5); Lymphocytes # (A) 1.5 k/uL (1.0-4.8); Lymphocytes % (A) 16 %; MCH 30.1 pg (25.0-35.0); MCHC 34.4 g/dL (31.0-37.0); MCV 87.7 fL (80.0-100.0); Mean Platelet Volume 7.4; Monocytes # (A) 0.7 k/uL (0-1.0); Monocytes % (A) 8 %; Neutrophils # (A) 6.8 k/uL (1.3-7.7); Neutrophils % (A) 74 %; Platelet Count 263 k/uL (150-450); RBC 5.28 m/uL (4.30-5.90); RDW 13.3 % (11.5-15.5); WBC 9.2 k/uL (3.8-10.6)
[2023-08-13 20:04] LABS: Partial Thromboplastin Time 22.7 sec (22.0-30.0); Prothrombin Time 10.8 sec (10.0-12.5)
[2023-08-13 20:19] LABS: ALT 33 U/L (4-49); AST 26 U/L (17-59); African American GFR (CKD) >90 (>60 ml/min/1.73 sqM); Albumin 4.1 g/dL (3.5-5.0); Alkaline Phosphatase 102 U/L (38-126); Anion Gap 11 mmol/L; Blood Urea Nitrogen 19 mg/dL (9-20); Calcium 9.1 mg/dL (8.4-10.2); Carbon Dioxide 23 mmol/L (22-30); Chloride 105 mmol/L (98-107); Glucose 159 mg/dL (74-99); Non-African American GFR(CKD) >90 (>60 ml/min/1.73 sqM); Potassium 4.2 mmol/L (3.5-5.1); Sodium 139 mmol/L (137-145); Total Bilirubin 1.1 mg/dL (0.2-1.3); Total Protein 6.9 g/dL (6.3-8.2)
--- NOTE | 2023-08-13 21:33 | XR ---
EXAMINATION: XR chest 2V: 08/13/2023 8:29 PM CLINICAL INDICATION: Chest Pain TECHNIQUE: Departmental protocol COMPARISON: 05/18/2023 FINDINGS: The lungs are clear. The pleural spaces are negative. The cardiac silhouette is not enlarged. The remainder of the mediastinal silhouette is unremarkable. The skeletal structures and soft tissues are negative for acute findings. IMPRESSION: No definite acute radiographic process.
--- NOTE | 2023-08-13 23:10 | ED ---
Chest Pain HPI - General Chief Complaint: Chest Pain Stated Complaint: chest pains N/V Time Seen by Provider: 08/13/23 19:15 Source: patient Mode of arrival: ambulatory Limitations: no limitations - History of Present Illness Initial Comments: 63-year-old male with past medical history of coronary artery disease, hypertension who presents to the emergency department reporting chest pain and epigastric pain. States that the pain has been a recurrent issue. It seems to be attributed to food intake. States that anytime he attempts to eat something he begins to have intense epigastric pain which then radiates into his chest. He reports that he has been hospitalized previously for the same complaint. He had cardiac workup which was negative. He also saw his purchasing engineer yesterday in office who stated that it was not his heart. He was told that he has a hiatal hernia. He is supposed to pursue an endoscopy however patient recently had COVID and therefore his endoscopy was pushed back. Patient presents today angry and aggressive. He states that he has been unable to eat or drink anything in 2 weeks. States that every time he eats he throws it right back up. He reports to me that he is lost 25 pounds in the past 2 weeks. is at bedside demanding "something needs to be done, he cannot live like this". Patient does report that he took some nitro at home and this did alleviate his pain - Related Data Home Medications Medication Instructions Recorded Confirmed FLUoxetine HCL [PROzac] 20 mg PO DAILY 04/26/22 08/13/23 FLUoxetine HCL [PROzac] 40 mg PO DAILY 04/26/22 08/13/23 Isosorbide Mononitrate ER [Imdur] 60 mg PO BID 04/26/22 08/13/23 Nitroglycerin Sl Tabs [Nitrostat] 0.4 mg SL Q5M PRN 04/26/22 08/13/23 rOPINIRole HCL [Requip] 0.5 mg PO TID 04/26/22 08/13/23 Azelastine HCl [Astelin Nasal 1 spr EA NOSTRIL BID 04/01/23 08/13/23 [place]] Ezetimibe [Zetia] 10 mg PO DAILY 04/16/23 08/13/23 Famotidine [Pepcid] 20 mg PO HS PRN 04/16/23 08/13/23 Sucralfate [Carafate] 1 gm PO BID 05/07/23 08/13/23 Albuterol Inhaler [Ventolin Hfa 1 - 2 puff INHALATION RT-Q6H PRN 08/13/23 08/13/23 Inhal[place]] Atorvastatin [Lipitor] 40 mg PO HS 08/13/23 08/13/23 Furosemide [Lasix] 20 mg PO DAILY 08/13/23 08/13/23 Ipratropium-Albuterol Nebulize 3 ml INHALATION RT-QID PRN 08/13/23 08/13/23 [Duoneb 0.5 mg-3 mg/3 ml Soln] Ipratropium/Albuter 20-100Mcg 1 puff INHALATION RT-QID 08/13/23 08/13/23 [Combivent Respimat 20-100Mcg Inhaler] Losartan [Cozaar] 50 mg PO DAILY 08/13/23 08/13/23 Ranolazine [Ranexa] 1,000 mg PO Q12HR 08/13/23 08/13/23 Umeclidinium Brm/Vilanterol Tr 1 puff INHALATION RT-DAILY 08/13/23 08/13/23 [Anoro Ellipta 62.5-25 Mcg INH] predniSONE See Taper PO DIRECTED 08/13/23 08/13/23 Previous Rx's Medication Instructions Recorded Metoprolol Tartrate [Lopressor] 50 mg PO BID-W/MEALS 30 Days #60 04/18/23 tab Pantoprazole [Protonix] 40 mg PO AC-BRKFST 30 Days #30 tab 04/18/23 Aspirin 81 mg PO DAILY 30 Days #30 tab 05/09/23 Allergies Allergy/AdvReac Type Severity Reaction Status Date / Time codeine Allergy Anaphylaxis Verified 08/13/23 22:44 peanut Allergy Migraine/Allergy Verified 08/13/23 22:44 testing Review of Systems ROS Statement: Those systems with pertinent positive or pertinent negative responses have been documented in the HPI. ROS Other: All systems not noted in ROS Statement are negative. Past Medical History Past Medical History: Chest Pain / Angina, COPD, CVA/TIA, GERD/Reflux, Hyperlipidemia, Hypertension, Myocardial Infarction ([place]), Osteoarthritis (OA), Pneumonia Additional Past Medical History / Comment(s): COVID April 2022 and December 2022, multiple MIs, TIA, peripheral vision loss of left eye, white mass on brain in MRI, wears o2 at home 3L at night prn, heart monitor from cardiology office r/t tachycardia Last Myocardial Infarction Date:: 2020 History of Any Multi-Drug Resistant Organisms: None Reported Past Surgical History: Heart Catheterization With Stent Additional Past Surgical History / Comment(s): 2 cardiac stents Past Anesthesia/Blood Transfusion Reactions: No Reported Reaction Date of Last Stent Placement:: 2020 Past Psychological History: Anxiety Smoking Status: Former smoker Past Alcohol Use History: None Reported Past Drug Use History: None Reported - Past Family History Father Family Medical History: Myocardial Infarction ([place]) Additional Family Medical History / Comment(s): from [place] Brother(s) Family Medical History: Myocardial Infarction ([place]) Additional Family Medical History / Comment(s): from [place] General Exam Limitations: no limitations General appearance: alert, in no apparent distress Head exam: Present: atraumatic, normocephalic, normal inspection Eye exam: Present: normal appearance, PERRL, EOMI. Absent: scleral icterus, conjunctival injection, periorbital swelling ENT exam: Present: normal exam, mucous membranes moist Neck exam: Present: normal inspection. Absent: tenderness, meningismus, lymphadenopathy Respiratory exam: Present: normal lung sounds bilaterally. Absent: respiratory distress, wheezes, rales, rhonchi, stridor Cardiovascular Exam: Present: normal rhythm, tachycardia, normal heart sounds. Absent: systolic murmur, diastolic murmur, rubs, gallop, clicks GI/Abdominal exam: Present: soft, normal bowel sounds. Absent: distended, tenderness, guarding, rebound, rigid Extremities exam: Present: normal inspection, full ROM, normal capillary refill. Absent: tenderness, pedal edema, joint swelling, calf tenderness Back exam: Present: normal inspection Neurological exam: Present: alert, oriented X3, CN II-XII intact Psychiatric exam: Present: normal affect, normal mood Skin exam: Present: warm, dry, intact, normal color. Absent: rash Course Vital Signs 08/13/23 08/14/23 08/14/23 19:08 00:39 03:30 Temperature 97.6 F Pulse Rate 112 H 84 80 Respiratory 18 18 16 Rate Blood Pressure 172/80 147/82 152/83 O2 Sat by Pulse 97 97 Oximetry 08/14/23 08/14/23 08/14/23 04:00 05:00 07:57 Temperature 98.0 F Pulse Rate 84 78 Respiratory 16 16 18 Rate Blood Pressure 121/68 115/60 141/83 O2 Sat by Pulse 95 97 96 Oximetry 08/14/23 08:40 Temperature Pulse Rate 84 Respiratory 20 Rate Blood Pressure 141/83 O2 Sat by Pulse 95 Oximetry Chest Pain MDM - MDM Was pt. sent in by a medical professional or institution (, PA, IT SECURITY SPECIALIST, urgent care, hospital, or care home...) When possible be specific @ -No Did you speak to anyone other than the patient for history (EMS, parent, family, police, friend...)? What history was obtained from this source @ -I spoke with the patient's Did you review nursing and triage notes (agree or disagree)? Why? @ -I reviewed and agree with nursing and triage notes Were old charts reviewed (outside hosp., previous admission, EMS record, old EKG, old radiological studies, urgent care reports/EKG's, care home records)? Report findings @ -I reviewed old imaging studies on the patient to include a CAT scan from January of last year Differential Diagnosis (chest pain, altered mental status, abdominal pain women, abdominal pain men, vaginal bleeding, weakness, fever, dyspnea, syncope, headache, dizziness, GI bleed, back pain, seizure, CVA, palpatations, mental health, musculoskeletal)? @ -Differential Abdominal Pain Men: Appendicitis, cholecystitis, diverticulosis, ischemic bowel, pancreatitis, hepatitis, UTI, gastroenteritis, AAA, incarcerated hernia, bowel obstruction, constipation, inflammatory bowel, hepatitis, peptic ulcer disease, splenic infarction, perforated viscus, testicular torsion, this is not meant to be an all-inclusive list EKG interpreted by me (3pts min.). @ -Yes and demonstrates sinus tachycardia with a rate of 107. Parable 147. QRS 85. QTc of 386. No acute ST segment elevations or depressions X-rays interpreted by me (1pt min.). @ -Yes and demonstrates no acute process CT interpreted by me (1pt min.). @ -Yes and demonstrates no acute process U/S interpreted by me (1pt. min.). @ -None done What testing was considered but not performed or refused? (CT, X-rays, U/S, labs)? Why? @ -None What meds were considered but not given or refused? Why? @ -None Did you discuss the management of the patient with other professionals (professionals i.e. , PA, IT SECURITY SPECIALIST, lab, RT, psych nurse, vp digital marketing social media and crm, phlebotomy lab assistant, teacher, hospital security officer, telephonic case manager)? Give summary @ -Spoke with Dr. Tidwell for admission Was smoking cessation discussed for >3mins.? @ -No Was critical care preformed (if so, how long)? @ -No Were there social determinants of health that impacted care today? How? (Homelessness, low income, unemployed, alcoholism, drug addiction, transportation, low edu. Level, literacy, decrease access to med. care, snf, rehab)? @ -No Was there de-escalation of care discussed even if they declined (Discuss DNR or withdrawal of care, Hospice)? DNR status @ -No What co-morbidities impacted this encounter? (DM, HTN, Smoking, COPD, CAD, Cancer, CVA, ARF, Chemo, Hep., AIDS, mental health diagnosis, sleep apnea, morbid obesity)? @ -Coronary artery disease Was patient admitted / discharged? Hospital course, mention meds given and route, prescriptions, significant lab abnormalities, going to OR and other pertinent info. @ -Upon arrival patient was placed into room 17. Thorough history and physical exam was performed. Laboratory studies were obtained. I did evaluate the patient myself. He is reporting to an epigastric pain but states that his symptoms have been going on for some time. I did review the patient's previous imaging. Feel that the patient does require another CT scan at this time as his last one was in January of last year. CT does not demonstrate any acute findings. Troponin is negative and EKG is normal. I did discuss results with the patient. is very demanding. States that the patient cannot go on like this because he is unable to hold down any food. I informed them that we do not have GI services at our facility. Dr. Nunez is not on-call. Unlikely that the patient's scope will be able to move up however if the patient is unable to eat and drink I can admit him for pain medications and nausea medications. I can have Dr. Griffin consult on the patient but patient is made aware that I am unsure if Dr. Underwood will offer any new testing or procedures as the patient has been suffering from the symptoms for some time. Patient does elect for overnight observation. Due to his cardiac history I will trend his troponins. Patient admitted to Dr. Wheeler who accepts the admission Undiagnosed new problem with uncertain prognosis? @ -Yes Drug Therapy requiring intensive monitoring for toxicity (Heparin, Nitro, Insulin, Cardizem)? @ -No Were any procedures done? @ -No Diagnosis/symptom? @ -Acute chest pain, acute epigastric abdominal pain, intractable nausea and vomiting Acute, or Chronic, or Acute on Chronic? @ -Acute Uncomplicated (without systemic symptoms) or Complicated (systemic symptoms)? @ -Complicated Side effects of treatment? @ -No Exacerbation, Progression, or Severe Exacerbation? @ -No Poses a threat to life or bodily function? How? (Chest pain, [place], [place], pneumonia, PE, COPD, DKA, ARF, appy, cholecystitis, CVA, Diverticulitis, Homicidal, Suicidal, threat to staff... and all critical care pts) @ -No Disposition Clinical Impression: Epigastric pain, Hx of arteriosclerotic cardiovascular disease, Nausea and vomiting Disposition: ADMITTED IP TO THIS [facility] Condition: Stable Is patient prescribed a controlled substance at d/c from ED?: No Time of Disposition: 23:21 Decision to Admit Reason: Admit from EC Decision Date: 08/13/23 Decision Time: 23:21
[2023-08-13] MEDS ORDERED: NALOXONE 0.4 MG/ML 1 ML VIAL IV PRN (23:21)
--- NOTE | 2023-08-13 23:53 | CT ---
EXAMINATION TYPE: CT abdomen pelvis w con DATE OF EXAM: 08/13/2023 COMPARISON: Prior CT May 07, 2023 HISTORY: pt arrives with chest pain n/v CT DLP: 922.7 mGycm, Automated Exposure Control for Dose Reduction was Utilized. CONTRAST: CT scan of the abdomen and pelvis is performed without oral and with IV Contrast, patient injected wi th 100 mL of Isovue 300. FINDINGS: LUNG BASES: Some emphysematous change in the lung bases is redemonstrated. Coronary artery calcificat ion is redemonstrated. LIVER/GB: A few small subcentimeter low-density lesions in the left hepatic dome are too small to fur ther characterize but presumed benign. Liver is diffusely low-density consistent with fatty infiltrat ed hepatocellular disease. PANCREAS: No significant abnormality is seen. SPLEEN: No significant abnormality is seen. ADRENALS: No significant abnormality is seen. KIDNEYS: Mild/moderate concentric wall thickening of the urinary bladder. BOWEL: Stomach poorly distended and thus suboptimally evaluated. No abnormal small or large bowel d ilatation. PROSTATE/SEMINAL VESICLES: No gross abnormality seen. LYMPH NODES: No greater than 1cm abdominal or pelvic lymph nodes are appreciated. OSSEOUS STRUCTURES: Moderate to severe disc space narrowing and vacuum disc phenomenon at the lumbosa cral junction. OTHER: Moderate mixed peripheral plaque of the aorta extends into branch vessels. IMPRESSION: 1. New mild/moderate concentric wall thickening of the urinary bladder. Correlate clinically and with urine lab values to exclude acute bladder infection or cystitis. 2. No bowel obstruction. No suspicious new or acute findings otherwise seen.
[2023-08-13] MEDS: ONDANSETRON 4 MG/2 ML VIAL IVP PRN (23:55)
[2023-08-13] MEDS: SODIUM CHLORIDE 0.9% 1,000 ML IV SCH (23:59)
[2023-08-14] MEDS: MAG HYDROX/AL HYDROX/SIMETH 30 ML, HYOSCYAMINE ELIXIR 10 ML, LIDOCAINE 2% GLYDO JELLY 1... PO ONE (00:27)
[2023-08-14] MEDS: MORPHINE SULFATE 4 MG/ML SYRINGE IVP STA (00:36)
[2023-08-14] MEDS: NITROGLYCERIN SL TABS 0.4 MG TAB SUBLINGUAL PRN (03:29)
[2023-08-14 06:36] LABS: Appearance,Urine Clear (Clear); Bilirubin,Urine Negative (Negative); Blood,Urine Negative (Negative); Color,Urine Colorless; Glucose,Urine (UA) Negative (Negative); Ketones,Urine Trace (Negative); Leukocyte Esterase,Urine Negative (Negative); Nitrite,Urine Negative (Negative); Protein,Urine Negative (Negative); Specific Gravity,Urine >1.050 (1.001-1.035); Urobilinogen,Urine <2.0 mg/dL (<2.0)
[2023-08-14] MEDS ORDERED: ALBUTEROL HFA INHALER INHALATION PRN (09:58)
[2023-08-14] MEDS ORDERED: IPRATROPIUM-ALBUTEROL 3 ML NEB INHALATION PRN (09:58)
--- NOTE | 2023-08-14 10:34 | P.CRDCN ---
History of Present Illness Consult date: 08/14/23 Consult reason: chest pain History of present illness: Consult reason: chest pain History of present illness: History of present illness: This is a 63-year-old male patient of Dr. Fonseca with past medical history of COPD, hypertension, hyperlipidemia, coronary artery disease with prior stenting. We have been asked to evaluate the patient for chest pain. Patient gives history that he has stomach pains with weight loss. Abdominal pain is dull and also heartburn pain. He states he is vomiting everything including his medications. He has noted on the computer to have about 6 kg weight loss since March. He has also had some left-sided chest pain in the upper area. He has received nitroglycerin which does seem to help some. Patient has been seen by general surgery and plan for EGD. Patient is seen today in the emergency center waiting for a bed on the observation unit. EKG sinus rhythm with no acute ST changes x 2 Chest x-ray: No acute process. CAT scan of the abdomen pelvis: Mild-moderate concentric wall thickening of the urinary bladder. No bowel obstruction. CBC, INR, electrolytes renal function liver function test all within normal limits. Troponin negative x 3. Magnesium 2.0. Urinalysis negative for infection. Home cardiac medications: Aspirin 81 mg daily, atorvastatin 40 mg at bedtime, Zetia 10 mg daily, Lasix 20 mg daily, Imdur 60 mg twice daily, losartan 50 mg daily, Lopressor 50 mg twice daily, Nitrostat as needed, Ranexa 500 mg every 12 hours. Echocardiogram performed 05/08/2023 revealed EF of 55-60%. Left heart catheterization performed in the setting of a non-ST SD 05/07/2023 which revealed coronary artery disease with proximal circumflex 50-60% stenosis, ostial OM 380% stenosis of the previous jailed OM3 branch, 20/30 percent stenosis. Elevated left-sided filling pressures. iFR normal of proximal circumflex. The jailed OM 3 branch appeared to be old and therefore treated medically. Review Of Systems: At the time of my evaluation: Constitutional: No fever, no chills. No weakness, fatigue or lethargy. + weight loss EENT: No headache. No dizziness. Lungs: No shortness of breath, cough, no sputum production. No wheezing. Cardiovascular: + chest pain, no lower extremity edema. No palpitations. No paroxysmal nocturnal dyspnea. No orthopnea. No lightheadedness or dizziness. No syncopal episodes. Abdominal: + abdominal pain. + nausea, + vomiting. No diarrhea. No constipation. No bloody or tarry stools. Musculoskeletal: No myalgias. No muscle weakness, no frequent falls. No back pain. No neck pain. Integumentary: No wounds. No rash. No unusual bruising. Neurologic: No aphasia. No facial droop. No change in mentation. No head injury. No headache. Physical examination: Gen: This is a 63-year-old male. He is resting on ER stretcher, in no acute distress, no respiratory distress. VS: reviewed blood pressure 141/83, heart rate in the 70s and 80s, afebrile, pulse ox 95% on room air. HEENT: Head is atraumatic, normocephalic. Pupils equal, round. Sclerae is anicteric. NECK: Supple. No JVD. LUNGS: Bilateral scattered wheezing. No intercostal retractions. HEART: Regular rate and rhythm. No murmur. ABDOMEN: Soft No tenderness. EXTREMITIES: No pedal edema. NEUROLOGICAL: Patient is awake, alert and oriented x3. Assessment: Stable angina Previous coronary artery stenting, see above Nausea, vomiting, weight loss, abdominal pain COPD Hypertension Hyperlipidemia Plan: Continue patient's home cardiac medications with the following changes Decrease Ranexa to 500 mg twice daily in view of nausea and vomiting and may be increased once symptoms are resolved Add Nitropaste as needed if nitroglycerin sublingual improves pain If blood pressure remains elevated, consider increasing beta-rob or amlodipine Hold Lasix No need to repeat echocardiogram. Agree with GI workup Further recommendations as patient progresses Thank you kindly for this consultation. Nurse practitioner note has been reviewed, I agree with documented findings and plan of care. Patient was seen and examined. Past Medical History Past Medical History: Chest Pain / Angina, COPD, CVA/TIA, GERD/Reflux, Hyperlipidemia, Hypertension, Myocardial Infarction ([place]), Osteoarthritis (OA), Pneumonia Additional Past Medical History / Comment(s): COVID April 2022 and December 2022, multiple MIs, TIA, peripheral vision loss of left eye, white mass on brain in MRI, wears o2 at home 3L at night prn, heart monitor from cardiology office r/t tachycardia Last Myocardial Infarction Date:: 2020 History of Any Multi-Drug Resistant Organisms: None Reported Past Surgical History: Heart Catheterization With Stent Additional Past Surgical History / Comment(s): 2 cardiac stents Past Anesthesia/Blood Transfusion Reactions: No Reported Reaction Date of Last Stent Placement:: 2020 Past Psychological History: Anxiety Smoking Status: Former smoker Past Alcohol Use History: None Reported Past Drug Use History: None Reported - Past Family History Father Family Medical History: Myocardial Infarction ([place]) Additional Family Medical History / Comment(s): from [place] Brother(s) Family Medical History: Myocardial Infarction ([place]) Additional Family Medical History / Comment(s): from [place] Medications and Allergies Home Medications Medication Instructions Recorded Confirmed Type FLUoxetine HCL [PROzac] 20 mg PO DAILY 04/26/22 08/13/23 History FLUoxetine HCL [PROzac] 40 mg PO DAILY 04/26/22 08/13/23 History Isosorbide Mononitrate ER [Imdur] 60 mg PO BID 04/26/22 08/13/23 History Nitroglycerin Sl Tabs [Nitrostat] 0.4 mg SL Q5M PRN 04/26/22 08/13/23 History rOPINIRole HCL [Requip] 0.5 mg PO TID 04/26/22 08/13/23 History Azelastine HCl [Astelin Nasal 1 spr EA NOSTRIL BID 04/01/23 08/13/23 History [place]] Ezetimibe [Zetia] 10 mg PO DAILY 04/16/23 08/13/23 History Famotidine [Pepcid] 20 mg PO HS PRN 04/16/23 08/13/23 History Metoprolol Tartrate [Lopressor] 50 mg PO BID-W/MEALS 30 Days #60 04/18/23 08/13/23 Rx tab Pantoprazole [Protonix] 40 mg PO AC-BRKFST 30 Days #30 tab 04/18/23 08/13/23 Rx Sucralfate [Carafate] 1 gm PO BID 05/07/23 08/13/23 History Aspirin 81 mg PO DAILY 30 Days #30 tab 05/09/23 08/13/23 Rx Albuterol Inhaler [Ventolin Hfa 1 - 2 puff INHALATION RT-Q6H PRN 08/13/23 08/13/23 History Inhal[place]] Atorvastatin [Lipitor] 40 mg PO HS 08/13/23 08/13/23 History Furosemide [Lasix] 20 mg PO DAILY 08/13/23 08/13/23 History Ipratropium-Albuterol Nebulize 3 ml INHALATION RT-QID PRN 08/13/23 08/13/23 History [Duoneb 0.5 mg-3 mg/3 ml Soln] Ipratropium/Albuter 20-100Mcg 1 puff INHALATION RT-QID 08/13/23 08/13/23 History [Combivent Respimat 20-100Mcg Inhaler] Losartan [Cozaar] 50 mg PO DAILY 08/13/23 08/13/23 History Ranolazine [Ranexa] 1,000 mg PO Q12HR 08/13/23 08/13/23 History Umeclidinium Brm/Vilanterol Tr 1 puff INHALATION RT-DAILY 08/13/23 08/13/23 History [Anoro Ellipta 62.5-25 Mcg INH] predniSONE See Taper PO DIRECTED 08/13/23 08/13/23 History Allergies Allergy/AdvReac Type Severity Reaction Status Date / Time codeine Allergy Anaphylaxis Verified 08/13/23 22:44 peanut Allergy Migraine/Allergy Verified 08/13/23 22:44 testing Physical Exam Vitals: Vital Signs Temp Pulse Resp BP Pulse Ox 08/14/23 05:00 78 16 115/60 97 08/14/23 04:00 84 16 121/68 95 08/14/23 03:30 80 16 152/83 97 08/14/23 00:39 84 18 147/82 08/13/23 19:08 97.6 F 112 H 18 172/80 97 Intake and Output 08/13/23 08/14/23 08/14/23 22:59 06:59 14:59 Other: Weight 75.75 kg Results 08/13/23 19:21 08/13/23 19:21 Cardiac Enzymes 08/13/23 08/13/23 08/14/23 Range/Units 19:21 19:21 01:01 AST 26 (17-59) U/L Troponin I 0.026 0.034 (0.000-0.034) ng/mL 08/14/23 Range/Units 04:35 AST (17-59) U/L Troponin I 0.030 (0.000-0.034) ng/mL Coagulation 08/13/23 Range/Units 19:21 PT 10.8 (10.0-12.5) sec APTT 22.7 (22.0-30.0) sec CBC 08/13/23 Range/Units 19:21 WBC 9.2 (3.8-10.6) k/uL RBC 5.28 (4.30-5.90) m/uL Hgb 15.9 (13.0-17.5) gm/dL Hct 46.3 (39.0-53.0) % Plt Count 263 (150-450) k/uL Comprehensive Metabolic Panel 08/13/23 Range/Units 19:21 Sodium 139 (137-145) mmol/L Potassium 4.2 (3.5-5.1) mmol/L Chloride 105 (98-107) mmol/L Carbon Dioxide 23 (22-30) mmol/L BUN 19 (9-20) mg/dL Creatinine 0.89 (0.66-1.25) mg/dL Glucose 159 H (74-99) mg/dL Calcium 9.1 (8.4-10.2) mg/dL AST 26 (17-59) U/L ALT 33 (4-49) U/L Alkaline Phosphatase 102 (38-126) U/L Total Protein 6.9 (6.3-8.2) g/dL Albumin 4.1 (3.5-5.0) g/dL Current Medications Generic Name Dose Route Start Last Admin Trade Name Freq PRN Reason Stop Dose Admin Sodium Chloride 1,000 mls @ 75 mls/hr 08/13/23 23:30 08/13/23 23:59 Saline 0.9% IV 75 mls/hr .[id number] Administration Naloxone HCl 0.2 mg 08/13/23 23:21 Naloxone 0.4 Mg/Ml 1 Ml Vial IV Q2M PRN Opioid Reversal Nitroglycerin 0.4 mg 08/14/23 03:25 08/14/23 03:29 Nitroglycerin Sl Tabs 0.4 Mg Tab SUBLINGUAL 0.4 mg Q10M PRN Administration Chest Pain Ondansetron HCl 4 mg 08/13/23 23:21 08/13/23 23:55 Ondansetron 4 Mg/2 Ml Vial IVP 4 mg Q8HR PRN Administration Nausea And Vomiting Intake and Output 08/13/23 08/14/23 08/14/23 22:59 06:59 14:59 Other: Weight 75.75 kg 08/13/23 19:21 08/13/23 19:21
[2023-08-14] MEDS: Salmeterol 50 mcg INHALER INHALATION SCH (10:58)
[2023-08-14] MEDS: TIOTROPIUM 2.5 MCG INHALER INHALATION SCH (10:58)
[2023-08-14] MEDS: ALBUTEROL HFA INHALER INHALATION SCH (10:59)
[2023-08-14] MEDS: FLUoxetine HCL 20 MG CAP PO SCH ×2 (11:21→11:27)
[2023-08-14] MEDS: ASPIRIN 81 MG PO SCH (11:21)
[2023-08-14] MEDS: METOPROLOL TARTRATE 50 MG TAB PO SCH (11:21)
[2023-08-14] MEDS: EZETIMIBE 10 MG TAB PO SCH (11:21)
[2023-08-14] MEDS: SUCRALFATE 1 GM TAB PO SCH (11:21)
[2023-08-14] MEDS: ISOSORBIDE MONONITRATE ER 60 MG TAB.ER.24H PO SCH (11:21)
[2023-08-14] MEDS: LOSARTAN 50 MG TAB PO SCH (11:22)
[2023-08-14] MEDS: PANTOPRAZOLE 40 MG/10 ML VIAL IVP SCH (11:22)
[2023-08-14] MEDS: NITROGLYCERIN OINT 1 INCH/GM PACKET TOPICAL PRN (11:22)
[2023-08-14] MEDS: FUROSEMIDE 20 MG TAB PO SCH (11:31)
[2023-08-14] MEDS: RANOLAZINE 500 MG TAB.ER.12H PO SCH (11:31)
[2023-08-14 11:32] LABS: Basophils % (A) 0 %; Eosinophils # (A) 0.1 k/uL (0-0.7); Eosinophils % (A) 2 %; HCT 39.4 % (39.0-53.0); HGB 13.6 gm/dL (13.0-17.5); Lymphocytes # (A) 1.4 k/uL (1.0-4.8); Lymphocytes % (A) 21 %; MCH 30.2 pg (25.0-35.0); MCHC 34.6 g/dL (31.0-37.0); MCV 87.4 fL (80.0-100.0); Mean Platelet Volume 7.3; Monocytes # (A) 0.7 k/uL (0-1.0); Monocytes % (A) 11 %; Neutrophils # (A) 4.3 k/uL (1.3-7.7); Neutrophils % (A) 63 %; Platelet Count 205 k/uL (150-450); RBC 4.51 m/uL (4.30-5.90); RDW 13.7 % (11.5-15.5); WBC 6.7 k/uL (3.8-10.6)
[2023-08-14 11:35] LABS: African American GFR (CKD) >90 (>60 ml/min/1.73 sqM); Anion Gap 3 mmol/L; Blood Urea Nitrogen 16 mg/dL (9-20); Calcium 8.2 mg/dL (8.4-10.2); Carbon Dioxide 27 mmol/L (22-30); Chloride 108 mmol/L (98-107); Glucose 90 mg/dL (74-99); Non-African American GFR(CKD) 89 (>60 ml/min/1.73 sqM); Potassium 4.5 mmol/L (3.5-5.1); Sodium 138 mmol/L (137-145)
[2023-08-14] MEDS ORDERED: IPRATROPIUM-ALBUTEROL 3 ML NEB INHALATION SCH (12:00)
--- NOTE | 2023-08-14 12:00 | P.GSCN ---
History of Present Illness Consult date: 08/14/23 History of present illness: CHIEF COMPLAINT: Epigastric pain and chest pain HISTORY OF PRESENT ILLNESS: This is a 63-year-old male who presented to the hospital with complaints of epigastric pain with chest pain and nausea and vomiting x 3 weeks. He is also been having significant heartburn. He does report a history of a hiatal hernia. He reports his last EGD and colonoscopy was done a year ago in [place] and at that time was found to have a hiatal hernia. Patient initially went to [place] and did require transfer for GI evaluation. CT scan abdomen pelvis showed no evidence of bowel obstruction. He reports having bowel movements. Denies any fever chills or sweats. Patient does report about a 30 pound weight loss over the last 3 weeks. Surgical service has been consulted in regards to patient's epigastric pain with nausea and vomiting. Patient reports he is on blood thinners but there is no blood thinners listed on his home meds. PAST MEDICAL HISTORY: See below PAST SURGICAL HISTORY: See below MEDICATIONS: See below ALLERGIES: See below SOCIAL HISTORY: No illicit drug use. REVIEW OF SYSTEMS: CONSTITUTIONAL: Denies fever or chills. HEENT: Denies blurred vision, vision changes, or eye pain. Denies hemoptysis CARDIOVASCULAR: Denies chest pain or pressure. RESPIRATORY: No shortness of breath. GASTROINTESTINAL: See HPI for pertinent findings HEMATOLOGIC: Denies bleeding disorders. GENITOURINARY: Denies any blood in urine or increased urinary frequency. SKIN: Denies pruitis. Denies rash. PHYSICAL EXAM: VITAL SIGNS: Reviewed GENERAL: Well-developed in no acute distress. HEENT: No sclera icterus. Extraocular movements grossly intact. Moist buccal mucosa. Head is atraumatic, normocephalic. No nasal drainage. ABDOMEN: Soft. Nondistended mild epigastric tenderness mid abdomen tenderness with palpation NEUROLOGIC: Alert and oriented. Cranial nerves II through XII grossly intact. LABORATORY DATA: WBC 6.7 Hgb 13.6 platelets 205 Sodium 138 potassium 4.5 creatinine 0.91 LFTs normal Troponins negative x 3 IMAGING: CT scan abdomen pelvis reports new mild to moderate concentric wall thickening of the urinary bladder. No bowel obstruction. No suspicious new or acute findings. ASSESSMENT: 1. Epigastric abdominal pain with nausea and vomiting 2. Chest pain evaluated by cardiology 3. History of hiatal hernia 4. Unintentional weight loss PLAN: -Patient scheduled for EGD today with Dr. Griffin -Keep patient n.p.o. -IV Protonix added -Continue antiemetics as needed -Continue IV fluids Thank you for this consultation Physician [employer] Checker note has been reviewed by physician. Signing provider agrees with the documented findings, assessment, and plan of care. Past Medical History Past Medical History: Chest Pain / Angina, COPD, CVA/TIA, GERD/Reflux, Hyperlipidemia, Hypertension, Myocardial Infarction ([place]), Osteoarthritis (OA), Pneumonia Additional Past Medical History / Comment(s): COVID April 2022 and December 2022, multiple MIs, TIA, peripheral vision loss of left eye, white mass on brain in MRI, wears o2 at home 3L at night prn, heart monitor from cardiology office r/t tachycardia Last Myocardial Infarction Date:: 2020 History of Any Multi-Drug Resistant Organisms: None Reported Past Surgical History: Heart Catheterization With Stent Additional Past Surgical History / Comment(s): 2 cardiac stents Past Anesthesia/Blood Transfusion Reactions: No Reported Reaction Date of Last Stent Placement:: 2020 Past Psychological History: Anxiety Smoking Status: Former smoker Past Alcohol Use History: None Reported Past Drug Use History: None Reported - Past Family History Father Family Medical History: Myocardial Infarction ([place]) Additional Family Medical History / Comment(s): from [place] Brother(s) Family Medical History: Myocardial Infarction ([place]) Additional Family Medical History / Comment(s): from [place] Medications and Allergies Home Medications Medication Instructions Recorded Confirmed Type FLUoxetine HCL [PROzac] 20 mg PO DAILY 04/26/22 08/13/23 History FLUoxetine HCL [PROzac] 40 mg PO DAILY 04/26/22 08/13/23 History Isosorbide Mononitrate ER [Imdur] 60 mg PO BID 04/26/22 08/13/23 History Nitroglycerin Sl Tabs [Nitrostat] 0.4 mg SL Q5M PRN 04/26/22 08/13/23 History rOPINIRole HCL [Requip] 0.5 mg PO TID 04/26/22 08/13/23 History Azelastine HCl [Astelin Nasal 1 spr EA NOSTRIL BID 04/01/23 08/13/23 History [place]] Ezetimibe [Zetia] 10 mg PO DAILY 04/16/23 08/13/23 History Famotidine [Pepcid] 20 mg PO HS PRN 04/16/23 08/13/23 History Metoprolol Tartrate [Lopressor] 50 mg PO BID-W/MEALS 30 Days #60 04/18/23 08/13/23 Rx tab Pantoprazole [Protonix] 40 mg PO AC-BRKFST 30 Days #30 tab 04/18/23 08/13/23 Rx Sucralfate [Carafate] 1 gm PO BID 05/07/23 08/13/23 History Aspirin 81 mg PO DAILY 30 Days #30 tab 05/09/23 08/13/23 Rx Albuterol Inhaler [Ventolin Hfa 1 - 2 puff INHALATION RT-Q6H PRN 08/13/23 08/13/23 History Inhaler] Atorvastatin [Lipitor] 40 mg PO HS 08/13/23 08/13/23 History Furosemide [Lasix] 20 mg PO DAILY 08/13/23 08/13/23 History Ipratropium-Albuterol Nebulize 3 ml INHALATION RT-QID PRN 08/13/23 08/13/23 History [Duoneb 0.5 mg-3 mg/3 ml Soln] Ipratropium/Albuter 20-100Mcg 1 puff INHALATION RT-QID 08/13/23 08/13/23 History [Combivent Respimat 20-100Mcg Inhaler] Losartan [Cozaar] 50 mg PO DAILY 08/13/23 08/13/23 History Ranolazine [Ranexa] 1,000 mg PO Q12HR 08/13/23 08/13/23 History Umeclidinium Brm/Vilanterol Tr 1 puff INHALATION RT-DAILY 08/13/23 08/13/23 History [Anoro Ellipta 62.5-25 Mcg INH] predniSONE See Taper PO DIRECTED 08/13/23 08/13/23 History Allergies Allergy/AdvReac Type Severity Reaction Status Date / Time codeine Allergy Anaphylaxis Verified 08/13/23 22:44 peanut Allergy Migraine/Allergy Verified 08/13/23 22:44 testing Surgical - Exam Vital Signs Temp Pulse Resp BP Pulse Ox 97.6 F 112 H 18 172/80 97 08/13/23 19:08 08/13/23 19:08 08/13/23 19:08 08/13/23 19:08 08/13/23 19:08 Results - Labs 08/14/23 10:57 08/14/23 10:57 Abnormal Lab Results - Last 24 Hours (Table) 08/13/23 08/14/23 08/14/23 Range/Units 19:21 06:10 10:57 Chloride 108 H (98-107) mmol/L Glucose 159 H (74-99) mg/dL Calcium 8.2 L (8.4-10.2) mg/dL Ur Specific [place] >1.050 H (1.001-1.035) Urine Ketones Trace H (Negative) Diabetes panel 08/13/23 08/14/23 Range/Units 19:21 10:57 Sodium 139 138 (137-145) mmol/L Potassium 4.2 4.5 (3.5-5.1) mmol/L Chloride 105 108 H (98-107) mmol/L Carbon Dioxide 23 27 (22-30) mmol/L BUN 19 16 (9-20) mg/dL Creatinine 0.89 0.91 (0.66-1.25) mg/dL Glucose 159 H 90 (74-99) mg/dL Calcium 9.1 8.2 L (8.4-10.2) mg/dL AST 26 (17-59) U/L ALT 33 (4-49) U/L Alkaline Phosphatase 102 (38-126) U/L Total Protein 6.9 (6.3-8.2) g/dL Albumin 4.1 (3.5-5.0) g/dL Calcium panel 08/13/23 08/14/23 Range/Units 19:21 10:57 Calcium 9.1 8.2 L (8.4-10.2) mg/dL Albumin 4.1 (3.5-5.0) g/dL Pituitary panel 08/13/23 08/14/23 Range/Units 19:21 10:57 Sodium 139 138 (137-145) mmol/L Potassium 4.2 4.5 (3.5-5.1) mmol/L Chloride 105 108 H (98-107) mmol/L Carbon Dioxide 23 27 (22-30) mmol/L BUN 19 16 (9-20) mg/dL Creatinine 0.89 0.91 (0.66-1.25) mg/dL Glucose 159 H 90 (74-99) mg/dL Calcium 9.1 8.2 L (8.4-10.2) mg/dL Adrenal panel 08/13/23 08/14/23 Range/Units 19:21 10:57 Sodium 139 138 (137-145) mmol/L Potassium 4.2 4.5 (3.5-5.1) mmol/L Chloride 105 108 H (98-107) mmol/L Carbon Dioxide 23 27 (22-30) mmol/L BUN 19 16 (9-20) mg/dL Creatinine 0.89 0.91 (0.66-1.25) mg/dL Glucose 159 H 90 (74-99) mg/dL Calcium 9.1 8.2 L (8.4-10.2) mg/dL Total Bilirubin 1.1 (0.2-1.3) mg/dL AST 26 (17-59) U/L ALT 33 (4-49) U/L Alkaline Phosphatase 102 (38-126) U/L Total Protein 6.9 (6.3-8.2) g/dL Albumin 4.1 (3.5-5.0) g/dL
--- NOTE | 2023-08-14 12:04 | P.HPIM ---
History of Present Illness Patient is a 63-year-old male came with complaints of epigastric abdominal burning sensation nausea vomiting which has been going on for about a week. Patient has not been eating very well because of this nausea and vomiting. [place] ent has a history of coronary artery disease and stenting in the past. EKG showed sinus rhythm without any acute ST-T wave changes chest x-ray did not show any significant abnormalities CT of the abdomen pelvis showed concentric thickening of the urinary bladder but urinalysis is essentially within normal limits without any significant abnormality. Patient denies any fever or chills was evaluated by general surgery will go for upper GI endoscopy patient is on Protonix at this time uses Pepcid at home is also on prednisone at home. Patient is not on any nonsteroidal anti-inflammatory medications. REVIEW OF SYSTEMS: CONSTITUTIONAL: No fever, no malaise, no fatigue. HEENT: No recent visual problems or hearing problems. Denied any sore throat. CARDIOVASCULAR: No chest pain, orthopnea, PND, no palpitations, no syncope. PULMONARY: No shortness of breath, no cough, no hemoptysis. GASTROINTESTINAL: No diarrhea, no nausea, no vomiting, no abdominal pain. NEUROLOGICAL: No headaches, no weakness, no numbness. HEMATOLOGICAL: Denies any bleeding or petechiae. GENITOURINARY: Denies any burning micturition, frequency, or urgency. MUSCULOSKELETAL/RHEUMATOLOGICAL: Denies any joint pain, swelling, or any muscle pain. ENDOCRINE: Denies any polyuria or polydipsia. The rest of the 14-point review of systems is negative. PHYSICAL EXAMINATION: GENERAL: The patient is alert and oriented x3, not in any acute distress. Well developed, well nourished. HEENT: Pupils are round and equally reacting to light. EOMI. No scleral icterus. No conjunctival pallor. Normocephalic, atraumatic. No pharyngeal erythema. No thyromegaly. CARDIOVASCULAR: S1 and S2 present. No murmurs, rubs, or gallops. PULMONARY: Chest is clear to auscultation, no wheezing or crackles. ABDOMEN: As mentioned in HPI MUSCULOSKELETAL: No joint swelling or deformity. EXTREMITIES: No cyanosis, clubbing, or pedal edema. NEUROLOGICAL: Gross neurological examination did not reveal any focal deficits. SKIN: No rashes. Assessment and plan -Epigastric abdominal burning sensation along with nausea vomiting secondary to peptic ulcer disease or gastritis-patient will undergo upper GI diascopy patient will remain n.p.o. patient is on Protonix which will be continued possibly of discharge tomorrow or later today if there is no significant gastritis and if he can tolerate diet. Systemic steroids were discontinued -Coronary artery disease history cardiology is evaluating the patient because of chest pain -COPD without any acute exacerbation -Hypertension -Hyperlipidemia DVT prophylaxis: Early ambulation, if he is staying longer patient will be started on Lovenox Past Medical History Past Medical History: Chest Pain / Angina, COPD, CVA/TIA, GERD/Reflux, Hyperl ipidemia, Hypertension, Myocardial Infarction ([place]), Osteoarthritis ([place]), Pneumonia Additional Past Medical History / Comment(s): COVID April 2022 and December 2022, multiple MIs, TIA, peripheral vision loss of left eye, white mass on brain in MRI, wears o2 at home 3L at night prn, heart monitor from cardiology office r/t tachycardia Last Myocardial Infarction Date:: 2020 History of Any Multi-Drug Resistant Organisms: None Reported Past Surgical History: Heart Catheterization With Stent Additional Past Surgical History / Comment(s): 2 cardiac stents Past Anesthesia/Blood Transfusion Reactions: No Reported Reaction Date of Last Stent Placement:: 2020 Past Psychological History: Anxiety Smoking Status: Former smoker Past Alcohol Use History: None Reported Past Drug Use History: None Reported - Past Family History Father Family Medical History: Myocardial Infarction ([place]) Additional Family Medical History / Comment(s): from [place] Brother(s) Family Medical History: Myocardial Infarction ([place]) Additional Family Medical History / Comment(s): from [place] Medications and Allergies Home Medications Medication Instructions Recorded Confirmed Type FLUoxetine HCL [PROzac] 20 mg PO DAILY 04/26/22 08/13/23 History FLUoxetine HCL [PROzac] 40 mg PO DAILY 04/26/22 08/13/23 History Isosorbide Mononitrate ER [Imdur] 60 mg PO BID 04/26/22 08/13/23 History Nitroglycerin Sl Tabs [Nitrostat] 0.4 mg SL Q5M PRN 04/26/22 08/13/23 History rOPINIRole HCL [Requip] 0.5 mg PO TID 04/26/22 08/13/23 History Azelastine HCl [Astelin Nasal 1 spr EA NOSTRIL BID 04/01/23 08/13/23 History [place]] Ezetimibe [Zetia] 10 mg PO DAILY 04/16/23 08/13/23 History Famotidine [Pepcid] 20 mg PO HS PRN 04/16/23 08/13/23 History Metoprolol Tartrate [Lopressor] 50 mg PO BID-W/MEALS 30 Days #60 04/18/23 08/13/23 Rx tab Pantoprazole [Protonix] 40 mg PO AC-BRKFST 30 Days #30 tab 04/18/23 08/13/23 Rx Sucralfate [Carafate] 1 gm PO BID 05/07/23 08/13/23 History Aspirin 81 mg PO DAILY 30 Days #30 tab 05/09/23 08/13/23 Rx Albuterol Inhaler [Ventolin Hfa 1 - 2 puff INHALATION RT-Q6H PRN 08/13/23 08/13/23 History Inhaler] Atorvastatin [Lipitor] 40 mg PO HS 08/13/23 08/13/23 History Furosemide [Lasix] 20 mg PO DAILY 08/13/23 08/13/23 History Ipratropium-Albuterol Nebulize 3 ml INHALATION RT-QID PRN 08/13/23 08/13/23 H istory [Duoneb 0.5 mg-3 mg/3 ml Soln] Ipratropium/Albuter 20-100Mcg 1 puff INHALATION RT-QID 08/13/23 08/13/23 History [Combivent Respimat 20-100Mcg Inhaler] Losartan [Cozaar] 50 mg PO DAILY 08/13/23 08/13/23 History Ranolazine [Ranexa] 1,000 mg PO Q12HR 08/13/23 08/13/23 History Umeclidinium Brm/Vilanterol Tr 1 puff INHALATION RT-DAILY 08/13/23 08/13/23 History [Anoro Ellipta 62.5-25 Mcg INH] predniSONE See Taper PO DIRECTED 08/13/23 08/13/23 History Allergies Allergy/AdvReac Type Severity Reaction Status Date / Time codeine Allergy Anaphylaxis Verified 08/13/23 22:44 peanut Allergy Migraine/Allergy Verified 08/13/23 22:44 testing Physical Exam Vitals: Vital Signs Temp Pulse Resp BP Pulse Ox 08/14/23 11:33 89 20 135/88 95 08/14/23 08:40 84 20 95 08/14/23 07:57 98.0 F 18 141/83 96 08/14/23 05:00 78 16 115/60 97 08/14/23 04:00 84 16 121/68 95 08/14/23 03:30 80 16 152/83 97 08/14/23 00:39 84 18 147/82 08/13/23 19:08 97.6 F 112 H 18 172/80 97 Intake and Output 08/13/23 08/14/23 08/14/23 22:59 06:59 14:59 Other: Weight 75.75 kg Results CBC & Chem 7: 08/14/23 10:57 08/14/23 10:57 Labs: Abnormal Lab Results - Last 24 Hours (Table) 08/13/23 08/14/23 08/14/23 Range/Units 19:21 06:10 10:57 Chloride 108 H (98-107) mmol/L Glucose 159 H (74-99) mg/dL Calcium 8.2 L (8.4-10.2) mg/dL Ur Specific [place] >1.050 H (1.001-1.035) Urine Ketones Trace H (Negative)
[2023-08-14] MEDS: IV FLUID CONTINUATION 1,000 ML IV ONE (14:26)
[2023-08-14] MEDS ORDERED: PROPOFOL 10 MG/ML 20 ML VIAL IV ONE (14:27)
[2023-08-14] MEDS ORDERED: LIDOCAINE 1% INJ 10MG/ML (20 ML MDV) ONE (14:27)
--- NOTE | 2023-08-14 14:42 | P.PCN ---
Date of Procedure: 08/14/23 Procedure(s) Performed: Preoperative Dx: Persistent vomiting, hematemesis Postoperative Dx: Mild gastritis, small gastric polyp, small hiatal hernia, distal esophagitis Procedure: EGD with Bx Anesthesia: Sedation Endoscopist: Dr. Griffin Specimens: Antrum, gastric polyp, distal esophagus Endoscopic Procedure: The patient was on the endoscopy table in the left decubitus position. The Olympus gastroscope was inserted into the oropharynx and passed under direct visualization to the region of the third portion of the duodenum. From that point the scope was slowly withdrawn inspecting all surfaces carefully. There were no neoplastic inflammatory or polypoid lesions throughout the duodenum. The pylorus was widely patent. The stomach was carefully inspected. There was mild gastritis present. Small gastric polyp was also seen. A biopsy of the gastric polyp took place.. A biopsy of the antrum took place to rule out H. pylori. Retroflexion revealed a normal-appearing hiatus. As the scope was withdrawn into the esophagus however a small less than 1 cm hiatal hernia was noted. At the distal esophagus there was moderate distal esophagitis present. This was likely the source of any recent hematemesis. Findings consistent with grade C reflux esophagitis. No nodularity or neoplastic changes. Biopsies of the distal esophagitis took place. The mid and proximal esophagus appeared normal. The patient was then taken to the recovery room in stable condition per anesthesia guidelines. Recommendations: Aggressive antiacid therapy. Await biopsy results. Resume diet. Etiology for ongoing vomiting unclear at this time.
[2023-08-14 15:14] VITALS: BP 100/63; PULSE 77; RESP 16; TEMP 97.9
[2023-08-14] MEDS: PANTOPRAZOLE 40 MG/10 ML VIAL IVP ONE (15:50)
[2023-08-14] MEDS ORDERED: RANOLAZINE 500 MG TAB.ER.12H PO SCH (21:00)
[2023-08-14] MEDS ORDERED: ATORVASTATIN 40 MG TAB PO SCH (21:00)
[2023-08-15] MEDS ORDERED: FORMOTEROL FUMARATE 20 MCG/2 ML NEBU INHALATION SCH (08:00)
[2023-08-15] MEDS ORDERED: LOSARTAN 25 MG TAB PO SCH (09:00)
== END 2023-08-14 16:49 | disposition home or self-care (01) ==
LOC: EC 18:59 → 6NMEDSUR 23:21
PROVIDERS: ADMIT Internal Medicine; ATTEND Internal Medicine
DX: K21.00 Gastro-esophageal reflux disease with esophagitis, without bleeding (principal); K44.9 Diaphragmatic hernia without obstruction or gangrene; K29.70 Gastritis, unspecified, without bleeding; K31.7 Polyp of stomach and duodenum; I25.118 Atherosclerotic heart disease of native coronary artery with other forms of angina pectoris; R63.4 Abnormal weight loss; I10 Essential (primary) hypertension; J44.9 Chronic obstructive pulmonary disease, unspecified; K21.9 Gastro-esophageal reflux disease without esophagitis; E78.5 Hyperlipidemia, unspecified; F41.9 Anxiety disorder, unspecified; I25.2 Old myocardial infarction; Z68.26 Body mass index [BMI] 26.0-26.9, adult; Z86.16 Personal history of COVID-19; Z86.73 Personal history of transient ischemic attack (TIA), and cerebral infarction without residual deficits; Z87.891 Personal history of nicotine dependence; Z95.5 Presence of coronary angioplasty implant and graft; Z79.82 Long term (current) use of aspirin; Z79.899 Other long term (current) drug therapy; Z88.5 Allergy status to narcotic agent
CPT/HCPCS: 96376 ×2; 96374; 96375; 99285; 36415; 94640 ×2; 93005; 80053; 80048; 83735; 84484 ×2; 85025 ×2; 85610; 85730; 81003; 71046; 74177; 43239; G0378 ×2; J2270; J2405 ×2; C9113; Q9967

== ENCOUNTER 2023-11-09 21:08 | Observation (INO) | payer MEDICARE ==
[2023-11-09] MEDS: SODIUM CHLORIDE 0.9% 1,000 ML IV STA (22:01)
[2023-11-09] MEDS: PANTOPRAZOLE 40 MG/10 ML VIAL IVP STA (22:02)
[2023-11-09] MEDS: ONDANSETRON 4 MG/2 ML VIAL IVP STA (22:03)
[2023-11-09] MEDS: ASPIRIN 81 MG PO STA (22:05)
--- NOTE | 2023-11-09 22:05 | XR ---
EXAMINATION TYPE: XR chest 1V portable DATE OF EXAM: 11/09/2023 COMPARISON: Prior chest x-ray August 13, 2023 HISTORY: Chest and abdominal pain TECHNIQUE: Single frontal view of the chest is obtained. FINDINGS: There is no focal air space opacity, pleural effusion, or pneumothorax seen. Cardiomegaly is redemonstrated. The osseous structures are intact. IMPRESSION: Cardiomegaly without acute pulmonary process.
[2023-11-09] MEDS: MAG HYDROX/AL HYDROX/SIMETH 30 ML, HYOSCYAMINE ELIXIR 10 ML, LIDOCAINE VISCOUS 2% 10 ML PO STA (22:07)
--- NOTE | 2023-11-09 22:16 | ED ---
General Adult HPI - General Chief complaint: Chest Pain Stated complaint: abd pain Time Seen by Provider: 11/09/23 21:40 Source: patient, RN notes reviewed, old records reviewed Mode of arrival: ambulatory Limitations: no limitations - History of Present Illness Initial comments: Patient is a 63-year-old male who presents emergency department complaining of multiple complaints. Patient has been having nausea, vomiting, diarrhea for 4 to 5 days. Is nonbloody. No significant abdominal history. States he has been having intermittent chest pain as well with shortness of breath. Has a history of COPD. Chest pain is worse with coughing and deep inspiration. Not worse with movements. Located over the left ribs. Endorses nonfocal abdominal discomfort. Seems to be primarily periumbilically but it is diffuse. No history of surgeries. Over the last multiple days has also been experiencing the nausea vomiting and diarrhea. Has a history of cardiac stents, COPD. Denies any recent long distance travel. No known sick contacts. Presents for further evaluation at this time. Is not on any blood thinners. Significant coughing. - Related Data Home Medications Medication Instructions Recorded Confirmed FLUoxetine HCL [PROzac] 20 mg PO DAILY 04/26/22 08/13/23 FLUoxetine HCL [PROzac] 40 mg PO DAILY 04/26/22 08/13/23 Isosorbide Mononitrate ER [Imdur] 60 mg PO BID 04/26/22 08/13/23 Nitroglycerin Sl Tabs [Nitrostat] 0.4 mg SL Q5M PRN 04/26/22 08/13/23 rOPINIRole HCL [Requip] 0.5 mg PO TID 04/26/22 08/13/23 Azelastine HCl [Astelin Nasal 1 spr EA NOSTRIL BID 04/01/23 08/13/23 [place]] Ezetimibe [Zetia] 10 mg PO DAILY 04/16/23 08/13/23 Sucralfate [Carafate] 1 gm PO BID 05/07/23 08/13/23 Albuterol Inhaler [Ventolin Hfa 1 - 2 puff INHALATION RT-Q6H PRN 08/13/23 08/13/23 Inhaler] Atorvastatin [Lipitor] 40 mg PO HS 08/13/23 08/13/23 Ipratropium-Albuterol Nebulize 3 ml INHALATION RT-QID PRN 08/13/23 08/13/23 [Duoneb 0.5 mg-3 mg/3 ml Soln] Ipratropium/Albuter 20-100Mcg 1 puff INHALATION RT-QID 08/13/23 08/13/23 [Combivent Respimat 20-100Mcg Inhaler] Ranolazine [Ranexa] 1,000 mg PO Q12HR 08/13/23 08/13/23 Umeclidinium Brm/Vilanterol Tr 1 puff INHALATION RT-DAILY 08/13/23 08/13/23 [Anoro Ellipta 62.5-25 Mcg INH] Previous Rx's Medication Instructions Recorded Metoprolol Tartrate [Lopressor] 50 mg PO BID-W/MEALS 30 Days #60 04/18/23 tab Aspirin 81 mg PO DAILY 30 Days #30 tab 05/09/23 Losartan [Cozaar] 25 mg PO DAILY #0 08/14/23 Pantoprazole [Protonix] 40 mg PO BID 30 Days #60 tab 08/14/23 Simethicone Chew [Mylicon Chew] 40 mg PO QID PRN #30 tab 08/14/23 Allergies Allergy/AdvReac Type Severity Reaction Status Date / Time codeine Allergy Anaphylaxis Verified 11/09/23 21:12 peanut Allergy Migraine/Allergy Verified 11/09/23 21:12 testing Review of Systems ROS Statement: Those systems with pertinent positive or pertinent negative responses have been documented in the HPI. Review of Systems: CONST: Denies fever EYES: Denies blurry vision ENT: Denies nasal congestion C/V: Endorses pleuritic chest pain RESP: Denies shortness of breath GI: Endorses generalized abdominal pain. : Denies dysuria SKIN: Denies rash. MSK: Denies joint pain. NEURO: Denies headache ROS Other: All systems not noted in ROS Statement are negative. Past Medical History Past Medical History: Chest Pain / Angina, COPD, CVA/TIA, GERD/Reflux, Hyperlipidemia, Hypertension, Myocardial Infarction (SD), Osteoarthritis (OA), Pneumonia Additional Past Medical History / Comment(s): COVID April 2022 and December 2022, multiple MIs, TIA, peripheral vision loss of left eye, white mass on brain in MRI, wears o2 at home 3L at night prn, heart monitor from cardiology office r/t tachycardia Last Myocardial Infarction Date:: 2020 History of Any Multi-Drug Resistant Organisms: None Reported Past Surgical History: Heart Catheterization With Stent Additional Past Surgical History / Comment(s): 2 cardiac stents Past Anesthesia/Blood Transfusion Reactions: No Reported Reaction Date of Last Stent Placement:: 2020 Past Psychological History: Anxiety Smoking Status: Former smoker Past Alcohol Use History: None Reported Past Drug Use History: None Reported - Past Family History Father Family Medical History: Myocardial Infarction (SD) Additional Family Medical History / Comment(s): from [place] Brother(s) Family Medical History: Myocardial Infarction (SD) Additional Family Medical History / Comment(s): from [place] General Exam - General Exam Comments Initial Comments: General: Appears in mild to moderate distress secondary to abdominal discomfort. HEAD: Normal with no signs of head trauma. EYES: PERRLA, EOMI, conjunctiva normal, no discharge. ENT: Hearing grossly intact, normal oropharynx. RESPIRATORY: Bilateral end expiratory wheezing. No significant hypoxia or respiratory distress. C/V: Regular rate and rhythm. S1 and S2 auscultated, no edema, peripheral pulses 2+ and intact throughout ABD: Soft, no significant distention. Tender to palpation diffusely but mostly around the umbilicus. No guarding. No rebound tenderness. No peritoneal signs. EXT: Normal range of motion, no obvious deformity SKIN: No rashes or lesions observed on exposed skin. NEURO: Alert and oriented x 4. Limitations: no limitations Course Vital Signs 11/09/23 11/09/23 11/09/23 21:09 22:10 23:35 Temperature 97.6 F Pulse Rate 116 H 100 89 Respiratory 18 16 Rate Blood Pressure 140/83 131/82 O2 Sat by Pulse 96 95 Oximetry 11/09/23 23:58 Temperature Pulse Rate 92 Respiratory Rate Blood Pressure O2 Sat by Pulse Oximetry Medical Decision Making - Medical Decision Making Was pt. sent in by a medical professional or institution (, PA, TOE LINING CLOSER, urgent care, hospital, or assisted...) When possible be specific @ -No Did you speak to anyone other than the patient for history (EMS, parent, family, police, friend...)? What history was obtained from this source @ -No Did you review nursing and triage notes (agree or disagree)? Why? @ -I reviewed and agree with nursing and triage notes Were old charts reviewed (outside hosp., previous admission, EMS record, old EKG, old radiological studies, urgent care reports/EKG's, assisted records)? Report findings @ -Prior EKGs reviewed from July 2023. No significant changes from then. Differential Diagnosis (chest pain, altered mental status, abdominal pain women, abdominal pain men, vaginal bleeding, weakness, fever, dyspnea, syncope, headache, dizziness, GI bleed, back pain, seizure, CVA, palpatations, mental health, musculoskeletal)? @ -Differential Chest Pain: Stable Angina, Unstable Angina, STEMI, NSTEMI Aortic Dissection, Pneumothorax, Musculoskeletal, Esophageal Spasm GERD, Cholecystitis, Pancreatitis, Zoster, this is not meant to be an all-inclusive list. Differential Abdominal Pain Men: Appendicitis, cholecystitis, diverticulosis, ischemic bowel, pancreatitis, hepatitis, UTI, gastroenteritis, AAA, incarcerated hernia, bowel obstruction, constipation, inflammatory bowel, hepatitis, peptic ulcer disease, splenic infarction, perforated viscus, testicular torsion, this is not meant to be an all-inclusive list EKG interpreted by me (3pts min.). @ -As above X-rays interpreted by me (1pt min.). @ -Chest x-ray reveals no obvious acute cardiopulmonary process. CT interpreted by me (1pt min.). @ -CT chest and CT abdomen pelvis shows no obvious acute process to explain the patient's symptoms. No evidence of PE. No acute intra-abdominal process. U/S interpreted by me (1pt. min.). @ -None done What testing was considered but not performed or refused? (CT, X-rays, U/S, labs)? Why? @ -None What meds were considered but not given or refused? Why? @ -None Did you discuss the management of the patient with other professionals (professionals i.e. , PA, TOE LINING CLOSER, lab, RT, psych nurse, bilingual social worker, word processor technician, teacher, president and chief commercial officer, pillowcase sewer)? Give summary @ -Discussed with Dr. Lee of [facility] who accepted the admission. Was smoking cessation discussed for >3mins.? @ -No Was critical care preformed (if so, how long)? @ -No Were there social determinants of health that impacted care today? How? (Homelessness, low income, unemployed, alcoholism, drug addiction, transportation, low edu. Level, literacy, decrease access to med. care, fdc, rehab)? @ -No Was there de-escalation of care discussed even if they declined (Discuss DNR or withdrawal of care, Hospice)? DNR status @ -No What co-morbidities impacted this encounter? (DM, HTN, Smoking, COPD, CAD, Cancer, CVA, ARF, Chemo, Hep., AIDS, mental health diagnosis, sleep apnea, morbid obesity)? @ -CAD, COPD Was patient admitted / discharged? Hospital course, mention meds given and route , prescriptions, significant lab abnormalities, going to OR and other pertinent info. @ -Patient presents with numerous complaints. Patient has had nausea, vomiting, diarrhea for numerous days and is also now having pleuritic chest pain. The pleuritic chest pain is what brought him in today. No history of blood thinners. Very mild cough. History of COPD. We will obtain cardiopulmonary workup but we will obtain CT of the abdomen pelvis as well. Patient was in agreement this plan. CT PE will be obtained as we are already imaging the patient's abdomen. He was in agreement this plan. Currently he does not have much in terms of pain. No pain at rest. Only with deep inspiration or so or if he coughs. Not reproducible. He will be symptomatically treated with IV fluids, breathing treatment, Zofran, Protonix, GI cocktail, aspirin. EKG shows no signs of acute ischemia.Imaging is unremarkable. Labs are also unremarkable including an undetectable troponin. Lactic acid within normal limits. Urinalysis is still pending. On reevaluation, patient still endorses occasional pleuritic chest pain but no other symptoms at this time. States his nausea as well as his acid reflux and abdominal pain symptoms have improved. I discussed results with the patient. Due to the chest pain over the left side of his chest with his cardiac history I did recommend observation admission at this time. Heart score is moderate. Patient was in agreement this plan. Will trend the troponin. Cardiology consulted. He already received 324 mg of aspirin. I spoke with the admitting physician, Dr. Lee who accepted the admission. Undiagnosed new problem with uncertain prognosis? @ -No Drug Therapy requiring intensive monitoring for toxicity (Heparin, Nitro, Insulin, Cardizem)? @ -No Were any procedures done? @ -No Diagnosis/symptom? @ -Chest pain, nausea and vomiting Acute, or Chronic, or Acute on Chronic? @ -Acute Uncomplicated (without systemic symptoms) or Complicated (systemic symptoms)? @ -Complicated Side effects of treatment? @ -None Exacerbation, Progression, or Severe Exacerbation] @ -No Poses a threat to life or bodily function? @ -Potentially, yes - Lab Data Result diagrams: 11/09/23 22:00 11/09/23 22:00 Lab Results 11/09/23 11/09/23 11/09/23 Range/Units 22:00 22:00 22:00 WBC 6.7 (3.8-10.6) k/uL RBC 4.76 (4.30-5.90) m/uL Hgb 14.5 (13.0-17.5) gm/dL Hct 42.6 (39.0-53.0) % MCV 89.5 (80.0-100.0) fL MCH 30.4 (25.0-35.0) pg MCHC 33.9 (31.0-37.0) g/dL RDW 13.4 (11.5-15.5) % Plt Count 283 (150-450) k/uL MPV 7.6 Neutrophils % 58 % Lymphocytes % 24 % Monocytes % 11 % Eosinophils % 3 % Basophils % 1 % Neutrophils # 3.9 (1.3-7.7) k/uL Lymphocytes # 1.6 (1.0-4.8) k/uL Monocytes # 0.7 (0-1.0) k/uL Eosinophils # 0.2 (0-0.7) k/uL Basophils # 0.0 (0-0.2) k/uL PT 10.7 (10.0-12.5) sec INR 1.0 (<1.2) APTT 24.2 (22.0-30.0) sec Sodium 136 L (137-145) mmol/L Potassium 4.1 (3.5-5.1) mmol/L Chloride 106 (98-107) mmol/L Carbon Dioxide 23 (22-30) mmol/L Anion Gap 7 mmol/L BUN 14 (9-20) mg/dL Creatinine 0.85 (0.66-1.25) mg/dL Est GFR (CKD-EPI)AfAm >90 (>60 ml/min/1.73 sqM) Est GFR (CKD-EPI)NonAf >90 (>60 ml/min/1.73 sqM) Glucose 97 (74-99) mg/dL Plasma Lactic Acid Kuldeep (0.7-2.0) mmol/L Calcium 9.2 (8.4-10.2) mg/dL Total Bilirubin 0.6 (0.2-1.3) mg/dL AST 27 (17-59) U/L ALT 33 (4-49) U/L Alkaline Phosphatase 67 (38-126) U/L Troponin I (0.000-0.034) ng/mL Total Protein 6.8 (6.3-8.2) g/dL Albumin 4.1 (3.5-5.0) g/dL Amylase 53 (30-110) U/L Lipase 111 (23-300) U/L Influenza Type A (PCR) (Not Detectd) Influenza Type B (PCR) (Not Detectd) RSV (PCR) (Not Detectd) SARS-CoV-2 (PCR) (Not Detectd) 11/09/23 11/09/23 11/09/23 Range/Units 22:00 22:00 22:12 WBC (3.8-10.6) k/uL RBC (4.30-5.90) m/uL Hgb (13.0-17.5) gm/dL Hct (39.0-53.0) % MCV (80.0-100.0) fL MCH (25.0-35.0) pg MCHC (31.0-37.0) g/dL RDW (11.5-15.5) % Plt Count (150-450) k/uL MPV Neutrophils % % Lymphocytes % % Monocytes % % Eosinophils % % Basophils % % Neutrophils # (1.3-7.7) k/uL Lymphocytes # (1.0-4.8) k/uL Monocytes # (0-1.0) k/uL Eosinophils # (0-0.7) k/uL Basophils # (0-0.2) k/uL PT (10.0-12.5) sec INR (<1.2) APTT (22.0-30.0) sec Sodium (137-145) mmol/L Potassium (3.5-5.1) mmol/L Chloride (98-107) mmol/L Carbon Dioxide (22-30) mmol/L Anion Gap mmol/L BUN (9-20) mg/dL Creatinine (0.66-1.25) mg/dL Est GFR (CKD-EPI)AfAm (>60 ml/min/1.73 sqM) Est GFR (CKD-EPI)NonAf (>60 ml/min/1.73 sqM) Glucose (74-99) mg/dL Plasma Lactic Acid Kuldeep 1.3 (0.7-2.0) mmol/L Calcium (8.4-10.2) mg/dL Total Bilirubin (0.2-1.3) mg/dL AST (17-59) U/L ALT (4-49) U/L Alkaline Phosphatase (38-126) U/L Troponin I <0.012 (0.000-0.034) ng/mL Total Protein (6.3-8.2) g/dL Albumin (3.5-5.0) g/dL Amylase (30-110) U/L Lipase (23-300) U/L Influenza Type A (PCR) Not Detected (Not Detectd) Influenza Type B (PCR) Not Detected (Not Detectd) RSV (PCR) Not Detected (Not Detectd) SARS-CoV-2 (PCR) Not Detected (Not Detectd) - EKG Data -: EKG Interpreted by Me EKG Comments: 12-lead Electrocardiogram Interpretation Note EKG was reviewed and interpreted by myself. 12-lead ECG performed at 2115 is interpreted by me as revealing sinus tachycardia at a rate of 111 beats per noble te. Left axis deviation. [place] interval is 153 ms, QRS duration is 102 ms, QTc is 393 ms.. There were no ST or T wave abnormalities to suggest myocardial ischemia or injury. R wave progression across the precordium was satisfactory. By my interpretation this EKG is non-diagnostic for acute ischemia. Disposition Clinical Impression: Chest pain, Nausea and vomiting Disposition: ADMITTED IP TO THIS HOSP Condition: Stable Time of Disposition: 00:08
[2023-11-09 22:41] LABS: Basophils % (A) 1 %; Eosinophils # (A) 0.2 k/uL (0-0.7); Eosinophils % (A) 3 %; HCT 42.6 % (39.0-53.0); HGB 14.5 gm/dL (13.0-17.5); Lymphocytes # (A) 1.6 k/uL (1.0-4.8); Lymphocytes % (A) 24 %; MCH 30.4 pg (25.0-35.0); MCHC 33.9 g/dL (31.0-37.0); MCV 89.5 fL (80.0-100.0); Mean Platelet Volume 7.6; Monocytes # (A) 0.7 k/uL (0-1.0); Monocytes % (A) 11 %; Neutrophils # (A) 3.9 k/uL (1.3-7.7); Neutrophils % (A) 58 %; Platelet Count 283 k/uL (150-450); RBC 4.76 m/uL (4.30-5.90); RDW 13.4 % (11.5-15.5); WBC 6.7 k/uL (3.8-10.6)
[2023-11-09 22:52] LABS: Partial Thromboplastin Time 24.2 sec (22.0-30.0); Prothrombin Time 10.7 sec (10.0-12.5)
[2023-11-09 23:12] LABS: ALT 33 U/L (4-49); AST 27 U/L (17-59); African American GFR (CKD) >90 (>60 ml/min/1.73 sqM); Albumin 4.1 g/dL (3.5-5.0); Alkaline Phosphatase 67 U/L (38-126); Amylase 53 U/L (30-110); Anion Gap 7 mmol/L; Blood Urea Nitrogen 14 mg/dL (9-20); Calcium 9.2 mg/dL (8.4-10.2); Carbon Dioxide 23 mmol/L (22-30); Chloride 106 mmol/L (98-107); Glucose 97 mg/dL (74-99); Lipase 111 U/L (23-300); Non-African American GFR(CKD) >90 (>60 ml/min/1.73 sqM); Potassium 4.1 mmol/L (3.5-5.1); Sodium 136 mmol/L (137-145); Total Bilirubin 0.6 mg/dL (0.2-1.3); Total Protein 6.8 g/dL (6.3-8.2)
[2023-11-09] MEDS: IPRATROPIUM-ALBUTEROL 3 ML NEB INHALATION STA (23:32)
--- NOTE | 2023-11-09 23:39 | CT ---
EXAMINATION TYPE: CT abdomen pelvis w con DATE OF EXAM: 11/09/2023 COMPARISON: Prior CT August 13, 2023 HISTORY: Pt presents to ED for c/o chest pain starting today with shortness of breath. Pt states took 1 nitro with no relief. Pt also states nausea and vomiting for the past few days. Unspecified abdomi nal pain. CT DLP: 953 mGycm, Automated Exposure Control for Dose Reduction was Utilized. CONTRAST: CT scan of the abdomen and pelvis is performed with oral and with IV Contrast, patient injected with 100 mL of Isovue 370. FINDINGS: LUNG BASES: Some emphysematous change in the lung bases is redemonstrated. Coronary artery calcificat ion inferiorly is redemonstrated. LIVER/GB: A few small subcentimeter low-density lesions in the left hepatic dome are too small to fur ther characterize but stable and presumed benign. Liver is diffusely low-density consistent with fatt y infiltrated hepatocellular disease. PANCREAS: No significant abnormality is seen. SPLEEN: No significant abnormality is seen. ADRENALS: No significant abnormality is seen. KIDNEYS: Mild/moderate bladder distention. Cortical thinning of both kidneys redemonstrated. No hydro nephrosis seen bilaterally. BOWEL: Stomach poorly distended and thus suboptimally evaluated. No abnormal small or large bowel d ilatation. PROSTATE/SEMINAL VESICLES: No gross abnormality seen. LYMPH NODES: No greater than 1cm abdominal or pelvic lymph nodes are appreciated. OSSEOUS STRUCTURES: Moderate to severe disc space narrowing and vacuum disc phenomenon at the lumbosa cral junction. OTHER: Moderate mixed peripheral plaque of the aorta extends into branch vessels. IMPRESSION: 1. No bowel obstruction. No suspicious new or acute findings identified.
--- NOTE | 2023-11-09 23:50 | CT ---
EXAMINATION TYPE: CT chest angio for PE DATE OF EXAM: 11/09/2023 COMPARISON: CTA chest April 17, 2023 HISTORY: Pt presents to ED for c/o chest pain starting today with shortness of breath. Pt states took 1 nitro with no relief. Pt also states nausea and vomiting for the past few days. CT DLP: 410.3 mGycm. Automated Exposure Control for Dose Reduction was Utilized. CONTRAST: CTA scan of the thorax is performed with IV Contrast, patient injected with 100 mL of Isovue 370, pul monary embolism protocol. MIP Images are created on CT scanner and reviewed. FINDINGS: LUNGS: Moderate underlying emphysematous change is redemonstrated. No new focal consolidation. No ple ural effusion or pneumothorax seen bilaterally. Slightly elevated left hemidiaphragm redemonstrated. MEDIASTINUM: There is satisfactory enhancement of the pulmonary artery and its branches, there is no CT evidence for pulmonary embolism. Enhancement of the aorta without aneurysm or dissection. Coronar y artery calcification redemonstrated. No cardiomegaly or pericardial effusion is seen. OTHER: Please refer to same day CT abdomen and pelvis report for complete details on the upper abdome n. IMPRESSION: 1. No CT evidence for acute pulmonary embolism. 2. Moderate emphysematous change without acute pulmonary process. No significant change from most rec ent prior CT.
[2023-11-10] MEDS ORDERED: IBUPROFEN 400 MG TAB PO PRN (00:17)
[2023-11-10] MEDS ORDERED: NALOXONE 0.4 MG/ML 1 ML VIAL IV PRN (00:17)
[2023-11-10] MEDS ORDERED: ONDANSETRON 4 MG/2 ML VIAL IVP PRN (00:17)
[2023-11-10] MEDS ORDERED: ALBUTEROL NEBULIZED 2.5 MG/3 ML INHALATION PRN (00:23)
[2023-11-10 03:50] LABS: Amorphous Sediment,Urine Rare /hpf; Appearance,Urine Clear (Clear); Bilirubin,Urine Negative (Negative); Blood,Urine Negative (Negative); Color,Urine Colorless; Glucose,Urine (UA) Negative (Negative); Hyaline Casts,Urine 13 /lpf (0-2); Ketones,Urine Negative (Negative); Leukocyte Esterase,Urine Trace (Negative); Mucus,Urine Rare /hpf; Nitrite,Urine Negative (Negative); Protein,Urine Negative (Negative); Specific Gravity,Urine 1.023 (1.001-1.035); Squamous Epithelial Cell,Urine 3 /hpf (0-4); Urobilinogen,Urine <2.0 mg/dL (<2.0); WBC,Urine 4 /hpf (0-5)
[2023-11-10] MEDS ORDERED: IPRATROPIUM-ALBUTEROL 3 ML NEB INHALATION SCH (08:00)
[2023-11-10] MEDS: SODIUM CHLORIDE 0.9% 1,000 ML IV STA (08:32)
[2023-11-10] MEDS ORDERED: PANTOPRAZOLE 40 MG/10 ML VIAL IV SCH (09:00)
--- NOTE | 2023-11-10 10:11 | P.CRDCN ---
History of Present Illness History of present illness: HISTORY OF PRESENT ILLNESS: This is a 63-year-old male with a past medical history significant for prior neurological issues with left-sided numbness, coronary artery disease with previous stenting, COPD with occasional oxygen use, hypertension, and hyperlipidemia. Patient follows in the office with Dr. Fonseca. We have been asked to see the patient in consultation for chest pain. Patient examined at the bedside. Patient reports he has been feeling unwell recently. He states he has been feeling nauseous and vomiting. He also reports diarrhea. He states he is having chest pain with deep inspiration. He currently denies shortness of breath. DIAGNOSTICS: - EKG reveals sinus tachycardia with no signs of acute ischemia. - Chest xray cardiomegaly without acute pulmonary process. - Laboratory data: WBC 6.7. Hemoglobin 14.5. Platelet count 283. Sodium 136. Potassium 4.1. BUN 14. Creatinine 0.85. Lactic acid 1.3. Troponin negative x 2. - Current home cardiac medications list not updated at the time of dictation - Most recent echocardiogram obtained in April 2023 revealed ejection fraction 55 to 60% with mild TR - Cardiac catheterization history: April 2023 revealing proximal circumflex 50 to 60% stenosis, ostial OM 380% stenosis of a previously jailed OM 3 branch, 20 to 30% stenosis, elevated left-sided filling pressures, and IFR normal of proximal circumflex. Medical management was recommended. REVIEW OF SYSTEMS: At the time of my exam: CONSTITUTIONAL: Denies fever or chills. HEENT: Denies blurred vision, vision changes, or eye pain. Denies hemoptysis CARDIOVASCULAR: Denies chest pain. Denies orthopnea. Denies PND. Denies palpitations RESPIRATORY: Denies shortness of breath. GASTROINTESTINAL: Denies abdominal pain. Denies nausea or vomiting. HEMATOLOGIC: Denies bleeding disorders. GENITOURINARY: Denies any blood in urine. SKIN: Denies pruitis. Denies rash. PHYSICAL EXAM: VITAL SIGNS: Reviewed. GENERAL: Well-developed in no acute distress. HEENT: Head is normocephalic. Pupils are equal, round. Sclerae anicteric. Mucous membranes of the mouth are moist. Neck supple. No JVD or thyromegaly LUNGS: Respirations even and unlabored. Lungs essentially clear to auscultation bilaterally. HEART: Regular rate and rhythm. S1 and S2 heard. ABDOMEN: Soft. Nondistended. Nontender. EXTREMITIES: Normal range of motion. No clubbing or cyanosis. Peripheral pulses intact. No lower extremity edema NEUROLOGIC: Awake and alert. Oriented x 3. ASSESSMENT: Chest pain, atypical, troponin negative x 3 Nausea, vomiting, diarrhea Coronary artery disease with previous stenting History of COPD Chronic hypoxic respiratory failure on home oxygen Hypertension Hyperlipidemia Prior neurological issues with left-sided facial numbness, headache, and diz ziness PLAN: An acute coronary event has been ruled out No need to repeat echocardiogram Resume home cardiac medications No further inpatient recommendations from a cardiac standpoint Patient can be discharged home today We will sign off. Please reconsult if needed. Nurse practitioner note has been reviewed by physician. Signing provider agrees with the documented findings, assessment, and plan of care documented by [employer] as a scribe. Past Medical History Past Medical History: Chest Pain / Angina, COPD, CVA/TIA, GERD/Reflux, Hyperlipidemia, Hypertension, Myocardial Infarction ([place]), Osteoarthritis (OA), Pneumonia Additional Past Medical History / Comment(s): COVID April 2022 and December 2022, multiple MIs, TIA, peripheral vision loss of left eye, white mass on brain in MRI, wears o2 at home 3L at night prn, heart monitor from cardiology office r/t tachycardia Last Myocardial Infarction Date:: 2020 History of Any Multi-Drug Resistant Organisms: None Reported Past Surgical History: Heart Catheterization With Stent Additional Past Surgical History / Comment(s): 2 cardiac stents Past Anesthesia/Blood Transfusion Reactions: No Reported Reaction Date of Last Stent Placement:: 2020 Past Psychological History: Anxiety Smoking Status: Former smoker Past Alcohol Use History: None Reported Past Drug Use History: None Reported - Past Family History Father Family Medical History: Myocardial Infarction ([place]) Additional Family Medical History / Comment(s): from [place] Brother(s) Family Medical History: Myocardial Infarction ([place]) Additional Family Medical History / Comment(s): from [place] Medications and Allergies Home Medications Medication Instructions Recorded Confirmed Type FLUoxetine HCL [PROzac] 20 mg PO DAILY 04/26/22 08/13/23 History FLUoxetine HCL [PROzac] 40 mg PO DAILY 04/26/22 08/13/23 History Isosorbide Mononitrate ER [Imdur] 60 mg PO BID 04/26/22 08/13/23 History Nitroglycerin Sl Tabs [Nitrostat] 0.4 mg SL Q5M PRN 04/26/22 08/13/23 History rOPINIRole HCL [Requip] 0.5 mg PO TID 04/26/22 08/13/23 History Azelastine HCl [Astelin Nasal 1 spr EA NOSTRIL BID 04/01/23 08/13/23 History [place]] Ezetimibe [Zetia] 10 mg PO DAILY 04/16/23 08/13/23 History Metoprolol Tartrate [Lopressor] 50 mg PO BID-W/MEALS 30 Days #60 04/18/23 08/13/23 Rx tab Sucralfate [Carafate] 1 gm PO BID 05/07/23 08/13/23 History Aspirin 81 mg PO DAILY 30 Days #30 tab 05/09/23 08/13/23 Rx Albuterol Inhaler [Ventolin Hfa 1 - 2 puff INHALATION RT-Q6H PRN 08/13/23 0 08/13/23 History Inhaler] Atorvastatin [Lipitor] 40 mg PO HS 08/13/23 08/13/23 History Ipratropium-Albuterol Nebulize 3 ml INHALATION RT-QID PRN 08/13/23 08/13/23 History [Duoneb 0.5 mg-3 mg/3 ml Soln] Ipratropium/Albuter 20-100Mcg 1 puff INHALATION RT-QID 08/13/23 08/13/23 History [Combivent Respimat 20-100Mcg Inhaler] Ranolazine [Ranexa] 1,000 mg PO Q12HR 08/13/23 08/13/23 History Umeclidinium Brm/Vilanterol Tr 1 puff INHALATION RT-DAILY 08/13/23 08/13/23 History [Anoro Ellipta 62.5-25 Mcg INH] Losartan [Cozaar] 25 mg PO DAILY #0 08/14/23 08/13/23 Rx Pantoprazole [Protonix] 40 mg PO BID 30 Days #60 tab 08/14/23 Rx Simethicone Chew [Mylicon Chew] 40 mg PO QID PRN #30 tab 08/14/23 Rx Allergies Allergy/AdvReac Type Severity Reaction Status Date / Time codeine Allergy Anaphylaxis Verified 11/09/23 21:12 peanut Allergy Migraine/Allergy Verified 11/09/23 21:12 testing Physical Exam Vitals: Vital Signs Temp Pulse Resp BP Pulse Ox 11/10/23 06:20 98.0 F 78 16 97/54 94 L 11/10/23 06:00 79 18 93/60 94 L 11/10/23 03:00 84 15 94/66 95 11/10/23 00:00 92 18 110/66 97 11/09/23 23:58 92 11/09/23 23:35 89 11/09/23 23:00 98 18 138/90 96 11/09/23 22:10 100 16 131/82 95 11/09/23 21:09 97.6 F 116 H 18 140/83 96 Intake and Output 11/09/23 11/10/23 11/10/23 22:59 06:59 14:59 Other: Weight 81.647 kg Results 11/09/23 22:00 11/09/23 22:00 Cardiac Enzymes 11/09/23 11/09/23 11/10/23 Range/Units 22:00 22:00 03:42 AST 27 (17-59) U/L Troponin I <0.012 <0.012 (0.000-0.034) ng/mL Coagulation 11/09/23 Range/Units 22:00 PT 10.7 (10.0-12.5) sec APTT 24.2 (22.0-30.0) sec CBC 11/09/23 Range/Units 22:00 WBC 6.7 (3.8-10.6) k/uL RBC 4.76 (4.30-5.90) m/uL Hgb 14.5 (13.0-17.5) gm/dL Hct 42.6 (39.0-53.0) % Plt Count 283 (150-450) k/uL Comprehensive Metabolic Panel 11/09/23 Range/Units 22:00 Sodium 136 L (137-145) mmol/L Potassium 4.1 (3.5-5.1) mmol/L Chloride 106 (98-107) mmol/L Carbon Dioxide 23 (22-30) mmol/L BUN 14 (9-20) mg/dL Creatinine 0.85 (0.66-1.25) mg/dL Glucose 97 (74-99) mg/dL Calcium 9.2 (8.4-10.2) mg/dL AST 27 (17-59) U/L ALT 33 (4-49) U/L Alkaline Phosphatase 67 (38-126) U/L Total Protein 6.8 (6.3-8.2) g/dL Albumin 4.1 (3.5-5.0) g/dL Current Medications Generic Name Dose Route Start Last Admin Trade Name Freq PRN Reason Stop Dose Admin Acetaminophen 650 mg 11/10/23 00:17 Acetaminophen Tab 325 Mg Tab PO Q6HR PRN Mild Pain or Fever > 100.5 Albuterol Sulfate 2.5 mg 11/10/23 00:23 Albuterol Nebulized 2.5 Mg/3 Ml INHALATION RT-Q6H PRN Shortness Of Breath Albuterol/Ipratropium 3 ml 11/10/23 00:23 Ipratropium-Albuterol 3 Ml Neb INHALATION RT-QID PRN Shortness Of Breath Atorvastatin Calcium 40 mg 11/10/23 21:00 Atorvastatin 40 Mg Tab PO HS MAIKEL Heparin Sodium (Porcine) 5,000 unit 11/10/23 08:00 Heparin Sodium,Porcine 5,000 Unit/Ml 1 Ml Vial SQ Q8HR [facility] Sodium Chloride 1,000 mls @ 75 mls/hr 11/10/23 06:40 Saline 0.9% IV 11/10/23 19:59 .[id number] STA Ibuprofen 400 mg 11/10/23 00:17 Ibuprofen 400 Mg Tab PO Q6HR PRN Mild Pain or Fever > 100.5 Isosorbide Mononitrate 60 mg 11/10/23 09:00 Isosorbide Mononitrate Er 60 Mg Tab.Er.24h PO BID [facility] Losartan Potassium 25 mg 11/10/23 09:00 Losartan 25 Mg Tab PO DAILY MAIKEL Metoprolol Tartrate 50 mg 11/10/23 07:30 Metoprolol Tartrate 50 Mg Tab PO BID-W/MEALS MAIKEL Naloxone HCl 0.2 mg 11/10/23 00:17 Naloxone 0.4 Mg/Ml 1 Ml Vial IV Q2M PRN Opioid Reversal Ondansetron HCl 4 mg 11/10/23 00:17 Ondansetron 4 Mg/2 Ml Vial IVP Q8HR PRN Nausea And Vomiting Pantoprazole Sodium 40 mg 11/10/23 09:00 Pantoprazole 40 Mg Tablet PO BID MAIKEL Intake and Output 11/09/23 11/10/23 11/10/23 22:59 06:59 14:59 Other: Weight 81.647 kg 11/09/23 22:00 11/09/23 22:00
[2023-11-10] MEDS: HEPARIN SODIUM,PORCINE 5,000 UNIT/ML 1 ML VIAL SQ SCH (10:21)
[2023-11-10] MEDS: METOPROLOL TARTRATE 50 MG TAB PO SCH (10:22)
[2023-11-10] MEDS: ISOSORBIDE MONONITRATE ER 60 MG TAB.ER.24H PO SCH (10:22)
[2023-11-10] MEDS: LOSARTAN 25 MG TAB PO SCH (10:22)
[2023-11-10] MEDS: PANTOPRAZOLE 40 MG TABLET PO SCH (10:22)
[2023-11-10] MEDS: ACETAMINOPHEN TAB 325 MG TAB PO PRN (10:23)
[2023-11-10] MEDS ORDERED: NITROGLYCERIN SL TABS 0.4 MG TAB SUBLINGUAL PRN (12:24)
[2023-11-10] MEDS: SUCRALFATE 1 GM TAB PO SCH (12:37)
--- NOTE | 2023-11-10 12:37 | P.HPIM ---
History of Present Illness 63-year-old came in with complaints of nausea vomiting diarrhea retrosternal burning sensation. Cardiology was consulted by ER physician and cardiology evaluated patient and cleared patient for discharge after an echocardiogram patient had a cardiac catheterization on the 2022 which showed 50 to 60% stenosis in circumflex and ostial stenosis of 80% and obtuse marginal 320 to 30%. Medical management was recommended at that time cardiology is recommending an echocardiogram and continued medical management. Patient chest pain is noncardiac related to severe gastritis or gastroenteritis patient was also having diarrhea. EKG did not show any acute ST-T wave changes chest x-ray no significant abnormality. REVIEW OF SYSTEMS: CONSTITUTIONAL: No fever, no malaise, no fatigue. HEENT: No recent visual problems or hearing problems. Denied any sore throat. CARDIOVASCULAR: No chest pain, orthopnea, PND, no palpitations, no syncope. PULMONARY: No shortness of breath, no cough, no hemoptysis. GASTROINTESTINAL: As mentioned in HPI NEUROLOGICAL: No headaches, no weakness, no numbness. HEMATOLOGICAL: Denies any bleeding or petechiae. GENITOURINARY: Denies any burning micturition, frequency, or urgency. MUSCULOSKELETAL/RHEUMATOLOGICAL: Denies any joint pain, swelling, or any muscle pain. ENDOCRINE: Denies any polyuria or polydipsia. The rest of the 14-point review of systems is negative. PHYSICAL EXAMINATION: GENERAL: The patient is alert and oriented x3, not in any acute distress. Well developed, well nourished. HEENT: Pupils are round and equally reacting to light. EOMI. No scleral icterus. No conjunctival pallor. Normocephalic, atraumatic. No pharyngeal erythema. No thyromegaly. CARDIOVASCULAR: S1 and S2 present. No murmurs, rubs, or gallops. PULMONARY: Chest is clear to auscultation, no wheezing or crackles. ABDOMEN: Soft, nontender, nondistended, normoactive bowel sounds. No palpable organomegaly. MUSCULOSKELETAL: No joint swelling or deformity. EXTREMITIES: No cyanosis, clubbing, or pedal edema. NEUROLOGICAL: Gross neurological examination did not reveal any focal deficits. SKIN: No rashes. Assessment and plan Nausea vomiting diarrhea epigastric burning sensation severe peptic ulcer disease or gastritis patient will be discharged on Protonix 40 mg twice a day along with simethicone. Patient will need upper GI endoscopy, biopsy and H. pylori evaluation as an outpatient -Coronary artery disease medical management echocardiogram will be obtained chest pain is noncardiac and related to get severe gastritis -COPD with mild acute exacerbation patient does have wheezing patient quit smoking. Patient will be discharged on inhaled steroids and inhalational treatments -Hypertension -Hyperlipidemia -Hypertension Patient will be discharged today if she can tolerate full liquid diet Past Medical History Past Medical History: Chest Pain / Angina, COPD, CVA/TIA, GERD/Reflux, Hyperlipidemia, Hypertension, Myocardial Infarction ([place]), Osteoarthritis ([place]), Pneumonia Additional Past Medical History / Comment(s): COVID April 2022 and December 2022, multiple MIs, TIA, peripheral vision loss of left eye, white mass on brain in MRI, wears o2 at home 3L at night prn, heart monitor from cardiology office r/t tachycardia Last Myocardial Infarction Date:: 2020 History of Any Multi-Drug Resistant Organisms: None Reported Past Surgical History: Heart Catheterization With Stent Additional Past Surgical History / Comment(s): 2 cardiac stents Past Anesthesia/Blood Transfusion Reactions: No Reported Reaction Date of Last Stent Placement:: 2020 Past Psychological History: Anxiety Smoking Status: Former smoker Past Alcohol Use History: None Reported Past Drug Use History: None Reported - Past Family History Father Family Medical History: Myocardial Infarction ([place]) Additional Family Medical History / Comment(s): from [place] Brother(s) Family Medical History: Myocardial Infarction ([place]) Additional Family Medical History / Comment(s): from [place] Medications and Allergies Home Medications Medication Instructions Recorded Confirmed Type FLUoxetine HCL [PROzac] 20 mg PO DAILY 04/26/22 11/10/23 History FLUoxetine HCL [PROzac] 40 mg PO DAILY 04/26/22 11/10/23 History Isosorbide Mononitrate ER [Imdur] 90 mg PO DAILY 04/26/22 11/10/23 History Nitroglycerin Sl Tabs [Nitrostat] 0.4 mg SL Q5M PRN 04/26/22 11/10/23 History rOPINIRole HCL [Requip] 0.5 mg PO TID 04/26/22 11/10/23 History Ezetimibe [Zetia] 10 mg PO DAILY 04/16/23 11/10/23 History Metoprolol Tartrate [Lopressor] 50 mg PO BID-W/MEALS 30 Days #60 04/18/23 11/10/23 Rx tab Aspirin 81 mg PO DAILY 30 Days #30 tab 05/09/23 11/10/23 Rx Atorvastatin [Lipitor] 40 mg PO HS 08/13/23 11/10/23 History Ipratropium-Albuterol Nebulize 3 ml INHALATION RT-QID PRN 08/13/23 11/10/23 History [Duoneb 0.5 mg-3 mg/3 ml Soln] Ipratropium/Albuter 20-100Mcg 1 puff INHALATION RT-QID 08/13/23 11/10/23 History [Combivent Respimat 20-100Mcg Inhaler] Budesonide-Formot 160-4.5 Mcg 2 puff INHALATION BID #10.2 gm 11/10/23 Rx [Symbicort 160-4.5 Mcg Inhaler] Pantoprazole [Protonix] 40 mg PO BID 30 Days #60 tab 11/10/23 Rx Ranolazine [Ranexa] 1,000 mg PO BID 11/10/23 11/10/23 History Sucralfate [Carafate] 1 gm PO AC-TID #90 tab 11/10/23 Rx Tiotropium Br/Olodaterol HCl 2 puff INHALATION RT-DAILY 11/10/23 11/10/23 History [Stiolto Respimat Inhal [place]] Allergies Allergy/AdvReac Type Severity Reaction Status Date / Time codeine Allergy Anaphylaxis Verified 11/09/23 21:12 peanut Allergy Migraine/Allergy Verified 11/09/23 21:12 testing Physical Exam Vitals: Vital Signs Temp Pulse Pulse Resp BP BP Pulse Ox 11/10/23 08:09 97.4 F L 73 15 114/73 96 11/10/23 06:20 98.0 F 78 16 97/54 94 L 11/10/23 06:00 79 18 93/60 94 L 11/10/23 03:00 84 15 94/66 95 11/10/23 00:00 92 18 110/66 97 11/09/23 23:58 92 11/09/23 23:35 89 11/09/23 23:00 98 18 138/90 96 11/09/23 22:10 100 16 131/82 95 11/09/23 21:09 97.6 F 116 H 18 140/83 96 Intake and Output 11/09/23 11/10/23 11/10/23 22:59 06:59 14:59 Other: Voiding Method Toilet # Voids 1 Weight 81.647 kg 81.647 kg Results CBC & Chem 7: 11/09/23 22:00 11/09/23 22:00 Labs: Abnormal Lab Results - Last 24 Hours (Table) 11/09/23 11/10/23 Range/Units 22:00 03:20 Sodium 136 L (137-145) mmol/L Ur Leukocyte Esterase Trace H (Negative) Amorphous Sediment Rare H (None) /hpf Hyaline Casts 13 H (0-2) /lpf Urine Mucus Rare H (None) /hpf Thrombosis Risk Factor Assmnt - Choose All That Apply Any of the Below Risk Factors Present?: No Other Risk Factors: Yes Each Risk Factor Represents 2 Points: Age 61-74 years Thrombosis Risk Factor Assessment Total Risk Factor Score: 2 Thrombosis Risk Factor Assessment Level: Low Risk
[2023-11-10] MEDS: SIMETHICONE 40 MG/0.6 ML DROPS 2,000 MG/30 ML BOTTLE PO SCH (12:38)
--- NOTE | 2023-11-10 12:38 | P.DS ---
Providers Date of admission: 11/10/23 00:19 Attending physician: Jonah Lee MD Consults: 11/10/23 00:17 Consult Physician Routine Consulting Provider: [facility] Consult Reason/Comments: chest pain Do you want consulting provider notified?: Yes Primary care physician: [facility] Hospital Course: 63-year-old came in with complaints of nausea vomiting diarrhea retrosternal burning sensation. Cardiology was consulted by ER physician and cardiology evaluated patient and cleared patient for discharge after an echocardiogram patient had a cardiac catheterization on the 2022 which showed 50 to 60% stenosis in circumflex and ostial stenosis of 80% and obtuse marginal 320 to 30%. Medical management was recommended at that time cardiology is recommending an echocardiogram and continued medical management. Patient chest pain is noncardiac related to severe gastritis or gastroenteritis patient was also having diarrhea. EKG did not show any acute ST-T wave changes chest x-ray no significant abnormality. PHYSICAL EXAMINATION: GENERAL: The patient is alert and oriented x3, not in any acute distress. Well developed, well nourished. HEENT: Pupils are round and equally reacting to light. EOMI. No scleral icterus. No conjunctival pallor. Normocephalic, atraumatic. No pharyngeal erythema. No thyromegaly. CARDIOVASCULAR: S1 and S2 present. No murmurs, rubs, or gallops. PULMONARY: Chest is clear to auscultation, no wheezing or crackles. ABDOMEN: Soft, nontender, nondistended, normoactive bowel sounds. No palpable organomegaly. MUSCULOSKELETAL: No joint swelling or deformity. EXTREMITIES: No cyanosis, clubbing, or pedal edema. NEUROLOGICAL: Gross neurological examination did not reveal any focal deficits. SKIN: No rashes. Assessment and plan Nausea vomiting diarrhea epigastric burning sensation severe peptic ulcer disease or gastritis patient will be discharged on Protonix 40 mg twice a day along with simethicone. Patient will need upper GI endoscopy, biopsy and H. pylori evaluation as an outpatient -Coronary artery disease medical management echocardiogram will be obtained chest pain is noncardiac and related to get severe gastritis -COPD with mild acute exacerbation patient does have wheezing patient quit smoking. Patient will be discharged on inhaled steroids and inhalational treatments -Hypertension -Hyperlipidemia -Hypertension Patient will be discharged today if she can tolerate full liquid diet Patient Condition at Discharge: Stable Plan - Discharge Summary Discharge Rx Participant: Yes New Discharge Prescriptions: New Budesonide-Formot 160-4.5 Mcg [Symbicort 160-4.5 Mcg Inhaler] 2 puff INHALATION BID #10.2 gm Losartan [Cozaar] 25 mg PO DAILY #30 tab Continue Isosorbide Mononitrate ER [Imdur] 90 mg PO DAILY FLUoxetine HCL [PROzac] 40 mg PO DAILY Nitroglycerin Sl Tabs [Nitrostat] 0.4 mg SL Q5M PRN PRN Reason: Chest Pain rOPINIRole HCL [Requip] 0.5 mg PO TID Ipratropium/Albuter 20-100Mcg [Combivent Respimat 20-100Mcg Inhaler] 1 puff INHALATION RT-QID Ranolazine [Ranexa] 1,000 mg PO BID Tiotropium Br/Olodaterol HCl [Stiolto Respimat Inhal [place]] 2 puff INHALATION RT-DAILY Sucralfate [Carafate] 1 gm PO AC-TID #90 tab FLUoxetine HCL [PROzac] 20 mg PO DAILY Ezetimibe [Zetia] 10 mg PO DAILY Metoprolol Tartrate [Lopressor] 50 mg PO BID-W/MEALS 30 Days #60 tab Aspirin 81 mg PO DAILY 30 Days #30 tab Ipratropium-Albuterol Nebulize [Duoneb 0.5 mg-3 mg/3 ml Soln] 3 ml INHALATION RT-QID PRN PRN Reason: Shortness Of Breath Atorvastatin [Lipitor] 40 mg PO HS Pantoprazole [Protonix] 40 mg PO BID 30 Days #60 tab Discontinued Famotidine [Pepcid] 20 mg PO HS Losartan Potassium [Cozaar] 100 mg PO DAILY Discharge Medication List FLUoxetine HCL [PROzac] 20 mg PO DAILY 04/26/22 [History] FLUoxetine HCL [PROzac] 40 mg PO DAILY 04/26/22 [History] Isosorbide Mononitrate ER [Imdur] 90 mg PO DAILY 04/26/22 [History] Nitroglycerin Sl Tabs [Nitrostat] 0.4 mg SL Q5M PRN 04/26/22 [History] rOPINIRole HCL [Requip] 0.5 mg PO TID 04/26/22 [History] Ezetimibe [Zetia] 10 mg PO DAILY 04/16/23 [History] Metoprolol Tartrate [Lopressor] 50 mg PO BID-W/MEALS 30 Days #60 tab 04/18/23 [Rx] Aspirin 81 mg PO DAILY 30 Days #30 tab 05/09/23 [Rx] Atorvastatin [Lipitor] 40 mg PO HS 08/13/23 [History] Ipratropium-Albuterol Nebulize [Duoneb 0.5 mg-3 mg/3 ml Soln] 3 ml INHALATION RT-QID PRN 08/13/23 [History] Ipratropium/Albuter 20-100Mcg [Combivent Respimat 20-100Mcg Inhaler] 1 puff INHALATION RT-QID 08/13/23 [History] Budesonide-Formot 160-4.5 Mcg [Symbicort 160-4.5 Mcg Inhaler] 2 puff INHALATION BID #10.2 gm 11/10/23 [Rx] Losartan [Cozaar] 25 mg PO DAILY #30 tab 11/10/23 [Rx] Pantoprazole [Protonix] 40 mg PO BID 30 Days #60 tab 11/10/23 [Rx] Ranolazine [Ranexa] 1,000 mg PO BID 11/10/23 [History] Sucralfate [Carafate] 1 gm PO AC-TID #90 tab 11/10/23 [Rx] Tiotropium Br/Olodaterol HCl [Stiolto Respimat Inhal [place]] 2 puff INHALATION RT-DAILY 11/10/23 [History] Follow up Appointment(s)/Referral(s): Lucila Billy MD [STAFF PHYSICIAN] - 1 Week Yara Wong MD [Primary Care Provider] - 3 Days Discharge Disposition: HOME SELF-CARE
[2023-11-10] MEDS: PANTOPRAZOLE 40 MG/10 ML VIAL IVP SCH (13:12)
[2023-11-10] MEDS: IPRATROPIUM-ALBUTEROL 3 ML NEB INHALATION PRN (13:39)
[2023-11-10] MEDS: IPRATROPIUM 0.5 MG/2.5 ML NEBU INHALATION SCH (16:59)
[2023-11-10] MEDS: ATORVASTATIN 40 MG TAB PO SCH (20:32)
[2023-11-10] MEDS: FAMOTIDINE 20 MG TAB PO SCH (20:32)
[2023-11-10] MEDS: RANOLAZINE 500 MG TAB.ER.12H PO SCH (20:32)
[2023-11-10] MEDS: BUDESONIDE 0.5 MG/2 ML NEBU INHALATION SCH (22:27)
[2023-11-10] MEDS: FORMOTEROL FUMARATE 20 MCG/2 ML NEBU INHALATION SCH (22:27)
[2023-11-11] MEDS ORDERED: NON FORMULARY DRUG (Tiotropium Br/Olodaterol Hcl [Stiolto Respimat Inhal Spray] 4 GM Each) INHALATION SCH (08:00)
[2023-11-11] MEDS ORDERED: FLUoxetine HCL 20 MG CAP PO SCH (09:00)
[2023-11-11 10:38] LABS: Basophils # (A) 0.03 X 10*3/uL (0.00-0.10); Basophils % (A) 0.6 %; Eosinophils # (A) 0.11 X 10*3/uL (0.04-0.35); Eosinophils % (A) 2.3 %; HCT 34.5 % (39.6-50.0); HGB 11.7 g/dL (13.0-17.0); Lymphocytes # (A) 1.24 X 10*3/uL (0.90-5.00); Lymphocytes % (A) 25.6 %; MCH 31.1 pg (27.0-32.0); MCHC 33.9 g/dL (32.0-37.0); MCV 91.8 FL (80.0-97.0); Mean Platelet Volume 9.6 FL (9.5-12.2); Monocytes # (A) 0.61 X 10*3/uL (0.20-1.00); Monocytes % (A) 12.6 %; NRBC Per 100 WBC 0 X 10*3/uL (0.00-0.01); Neutrophils # (A) 2.84 X 10*3/uL (1.80-7.70); Neutrophils % (A) 58.7 %; Platelet Count 211 X 10*3/uL (140-440); RBC 3.76 X 10*6/uL (4.40-5.60); RDW 12.8 % (11.5-14.5); WBC 4.84 X 10*3/uL (4.50-10.00)
[2023-11-11 10:56] LABS: Blood Urea Nitrogen 7.6 mg/dL (9.0-27.0); Carbon Dioxide 23.8 mmol/L (21.6-31.8); Chloride 109 mmol/L (96-109); Glucose 91 mg/dL (70-110); Potassium 4.1 mmol/L (3.5-5.5); Sodium 141 mmol/L (135-145)
[2023-11-11 10:57] LABS: ALT 21 U/L (10-49); AST 18 U/L (14-35); Albumin 3.6 g/dL (3.8-4.9); Albumin/Globulin Ratio 2.12 Ratio (1.60-3.17); Alkaline Phosphatase 50 U/L (41-126); Calcium 8.5 mg/dL (8.7-10.3); Globulin 1.7 g/dL (1.6-3.3); Total Bilirubin 0.5 mg/dL (0.3-1.2); Total Protein 5.3 g/dL (6.2-8.2)
--- NOTE | 2023-11-11 11:20 | P.PN ---
Subjective HISTORY OF PRESENT ILLNESS: This is a 63-year-old male with a past medical history significant for prior neurological issues with left-sided numbness, coronary artery disease with previous stenting, COPD with occasional oxygen use, hypertension, and hyperlipidemia. Patient follows in the office with Dr. Fonseca. We have been asked to see the patient in consultation for chest pain. Patient examined at the bedside. Patient reports he has been feeling unwell recently. He states he has been feeling nauseous and vomiting. He also reports diarrhea. He states he is having chest pain with deep inspiration. He currently denies shortness of breat h. DIAGNOSTICS: - EKG reveals sinus tachycardia with no signs of acute ischemia. - Chest xray cardiomegaly without acute pulmonary process. - Laboratory data: WBC 6.7. Hemoglobin 14.5. Platelet count 283. Sodium 136. Potassium 4.1. BUN 14. Creatinine 0.85. Lactic acid 1.3. Troponin negative x 2. - Current home cardiac medications list not updated at the time of dictation - Most recent echocardiogram obtained in April 2023 revealed ejection fraction 55 to 60% with mild TR - Cardiac catheterization history: April 2023 revealing proximal circumflex 50 to 60% stenosis, ostial OM 380% stenosis of a previously jailed OM 3 branch, 20 to 30% stenosis, elevated left-sided filling pressures, and IFR normal of proximal circumflex. Medical management was recommended. 11/11/2023 Patient examined this morning at the bedside. Patient currently denies shortness of breath. He reports chest discomfort that is worse with deep inspiration. The patient also had another episode of chest discomfort yesterday afternoon that is similar to the pain he is describing this morning which is aty pical for CAD. EKG and troponin were drawn yesterday which were both unremarkable. PHYSICAL EXAM: VITAL SIGNS: Reviewed. GENERAL: Well-developed in no acute distress. HEENT: Head is normocephalic. Pupils are equal, round. Sclerae anicteric. Mucous membranes of the mouth are moist. Neck supple. No JVD or thyromegaly LUNGS: Respirations even and unlabored. Lungs essentially clear to auscultation bilaterally. HEART: Regular rate and rhythm. S1 and S2 heard. ABDOMEN: Soft. Nondistended. Nontender. EXTREMITIES: Normal range of motion. No clubbing or cyanosis. Peripheral pulses intact. No lower extremity edema NEUROLOGIC: Awake and alert. Oriented x 3. ASSESSMENT: Chest pain, atypical, troponin negative x 4 Nausea, vomiting, diarrhea Coronary artery disease with previous stenting History of COPD Chronic hypoxic respiratory failure on home oxygen Hypertension Hyperlipidemia Prior neurological issues with left-sided facial numbness, headache, and dizziness PLAN: Continue current cardiac medications No further inpatient recommendations from a cardiac standpoint No plans for stress testing at this time Patient may be discharged home today from a cardiac standpoint and follow-up in the office with Dr. Fonseca We will sign off. Please reconsult if needed. Nurse practitioner note has been reviewed by physician. Signing provider agrees with the documented findings, assessment, and plan of care documented by PUBLIC SERVICE DIRECTOR as a scribe. Objective - Vital Signs Vital signs: Vital Signs Temp 97.9 F 11/11/23 07:42 Pulse 78 11/11/23 07:58 Resp 18 11/11/23 07:42 BP 106/74 11/11/23 07:42 Pulse Ox 94 L 11/11/23 07:42 FiO2 Intake & Output 11/10/23 11/11/23 11/11/23 18:59 06:59 18:59 Weight 81.647 kg Other: Voiding Method Toilet Toilet # Voids 1 3 - Labs CBC & Chem 7: 11/11/23 07:01 11/11/23 07:01
[2023-11-11] MEDS: ASPIRIN 81 MG PO SCH (11:33)
[2023-11-11] MEDS: FLUoxetine HCL 20 MG CAP PO SCH (11:33)
[2023-11-11] MEDS: EZETIMIBE 10 MG TAB PO SCH (11:34)
--- NOTE | 2023-11-11 14:46 | P.PN ---
Subjective Progress Note Date: 11/11/23 63-year-old came in with complaints of nausea vomiting diarrhea retrosternal burning sensation. Cardiology was consulted by ER physician and cardiology evaluated patient and cleared patient for discharge after an echocardiogram patient had a cardiac catheterization on the 2022 which showed 50 to 60% steno sis in circumflex and ostial stenosis of 80% and obtuse marginal 320 to 30%. Medical management was recommended at that time cardiology is recommending an echocardiogram and continued medical management. Patient chest pain is noncardiac related to severe gastritis or gastroenteritis patient was also having diarrhea. EKG did not show any acute ST-T wave changes chest x-ray no significant abnormality. 11/11/2023 Is evaluated follow-up today on the medical floor. He continues to report shortness of breath and cough. He does have some scattered wheezing throughout. Additionally patient reports intermittent episodes of vomiting without much abdominal tenderness. Cardiology has signed off. Review of Systems Constitutional: Denied any fatigue denied any fever. Cardio vascular: denied any chest pain, palpitations Gastrointestinal: Reoprts nausea vomiting, no diarrhea Pulmonary: Reports shortness of breath cough Neurologic denied any new focal deficits All inpatient medications were reviewed and appropriate changes in these medications as dictated in the interval history and assessment and plan. PHYSICAL EXAMINATION: GENERAL: The patient is alert and oriented x3, not in any acute distress. Well developed, well nourished. HEENT: Pupils are round and equally reacting to light. EOMI. No scleral icterus. No conjunctival pallor. Normocephalic, atraumatic. No pharyngeal erythema. No thyromegaly. CARDIOVASCULAR: S1 and S2 present. No murmurs, rubs, or gallops. PULMONARY: Scattered expiratory wheezing. ABDOMEN: Soft, nontender, nondistended, normoactive bowel sounds. No palpable organomegaly. MUSCULOSKELETAL: No joint swelling or deformity. EXTREMITIES: No cyanosis, clubbing, or pedal edema. NEUROLOGICAL: Gross neurological examination did not reveal any focal deficits. SKIN: No rashes. Assessment and plan -Nausea vomiting diarrhea epigastric burning sensation likely viral gastroenteritis. If symptoms persist may consider GI evaluation outpatient. -Coronary artery disease medical management chest pain is noncardiac, cardiology signed off. -COPD with mild acute exacerbation patient does have wheezing patient quit smoking. Continue on inhaled steroids, added systemic steroids, oral azithromycin. Check procalcitonin level. -Hypertension -Hyperlipidemia -Hypertension GI prophylaxis DVT prophylaxis Full Code The impression and plan of care has been dictated by Camilla Fallon Nurse Practitioner as directed. Dr. Isaura MD I have performed a history and physical examination and medical decision making of this patient, discussed the same with the dictator, and agree with the dictators assessment and plan as written, documented as a scribe. Based on total visit time, I have performed more than 50% of this visit. Objective - Vital Signs Vital signs: Vital Signs Temp 97.8 F 11/11/23 14:06 Pulse 74 11/11/23 14:06 Resp 18 11/11/23 14:06 BP 100/62 11/11/23 14:06 Pulse Ox 95 11/11/23 14:06 FiO2 Intake & Output 11/10/23 11/11/23 11/11/23 18:59 06:59 18:59 Intake Total 120 Balance 120 Weight 81.647 kg Intake: Oral 120 Other: Voiding Method Toilet Toilet # Voids 1 3 2 - Labs CBC & Chem 7: 11/11/23 07:01 11/11/23 07:01 Labs: Abnormal Lab Results - Last 24 Hours (Table) 11/11/23 11/11/23 Range/Units 07:01 07:01 RBC 3.76 L (4.40-5.60) X 10*6/uL Hgb 11.7 L (13.0-17.0) g/dL Hct 34.5 L (39.6-50.0) % BUN 7.6 L (9.0-27.0) mg/dL BUN/Creatinine Ratio 7.60 L (12.00-20.00) Ratio Calcium 8.5 L (8.7-10.3) mg/dL Total Protein 5.3 L (6.2-8.2) g/dL Albumin 3.6 L (3.8-4.9) g/dL Assessment and Plan Time with Patient: Less than 30
[2023-11-11] MEDS: methylPREDNISolone SOD SUCCI 40 MG/ML 1 ML VIAL IV SCH (15:00)
[2023-11-11] MEDS: AZITHROMYCIN 500 MG TAB PO ONE (17:47)
[2023-11-12] MEDS: AZITHROMYCIN 250 MG TAB PO SCH (08:48)
--- NOTE | 2023-11-12 13:49 | P.DS ---
Providers Date of admission: 11/10/23 00:20 Attending physician: Jonah Lee MD [facility] Course: Final Diagnosis -Nausea vomiting diarrhea epigastric burning sensation likely viral gastroenteritis. -Coronary artery disease medical management chest pain is noncardiac, cardiology signed off. -COPD with mild acute exacerbation patient does have wheezing patient quit smoking. -Hypertension -Hyperlipidemia -Hypertension Discharge Disposition Patient is stable for discharge home. Patient to complete prednisoe taper and discharged on symbicort. Follow up with his cabinet builder on discharge. Consider GI evaluation outpatient if symptoms of heartburn or vomiting persist. Hospital Course 63-year-old came in with complaints of nausea vomiting diarrhea retrosternal burning sensation. Cardiology was consulted by ER physician and cardiology evaluated patient and cleared patient for discharge after an echocardiogram patient had a cardiac catheterization on the 2022 which showed 50 to 60% stenosis in circumflex and ostial stenosis of 80% and obtuse marginal 320 to 30%. Medical management was recommended at that time cardiology is recommending an echocardiogram and continued medical management. Patient chest pain is noncardiac related to severe gastritis or gastroenteritis patient was also having diarrhea. EKG did not show any acute ST-T wave changes chest x-ray no significant abnormality. 11/11/2023 Is evaluated follow-up today on the medical floor. He continues to report shortness of breath and cough. He does have some scattered wheezing throughout. Additionally patient reports intermittent episodes of vomiting without much abdominal tenderness. Cardiology has signed off. 12/13/2023 Patient was kept overnight due to complaints of shortness of breath and wheezing. Patient does wear 3L of oxygen at home. He states he is short of breath with exertion at baseline. Wheezing has improved. No chest pain. He is tolerating diet and has no further reports of vomiting. His procalcitonon level was 0.4. Most recent blood work from today reveals a white blood cell count of 4.84, hemoglobin of 10.7, sodium 141, potassium 4.1, BUN of 7.6, creatinine 1.0. 93% oxygen saturation on 4L of oxyen. hemodynamically he is stable and he is afebrile. He will be discharged home. Review of Systems Constitutional: Denied any fatigue denied any fever. Cardio vascular: denied any chest pain, palpitations Gastrointestinal: Reoprts nausea vomiting, no diarrhea Pulmonary: Reports shortness of breath cough Neurologic denied any new focal deficits All inpatient medications were reviewed and appropriate changes in these medications as dictated in the interval history and assessment and plan. PHYSICAL EXAMINATION: GENERAL: The patient is alert and oriented x3, not in any acute distress. Well developed, well nourished. HEENT: Pupils are round and equally reacting to light. EOMI. No scleral icterus. No conjunctival pallor. Normocephalic, atraumatic. No pharyngeal erythema. No thyromegaly. CARDIOVASCULAR: S1 and S2 present. No murmurs, rubs, or gallops. PULMONARY: Scattered expiratory wheezing. ABDOMEN: Soft, nontender, nondistended, normoactive bowel sounds. No palpable organomegaly. MUSCULOSKELETAL: No joint swelling or deformity. EXTREMITIES: No cyanosis, clubbing, or pedal edema. NEUROLOGICAL: Gross neurological examination did not reveal any focal deficits. SKIN: No rashes. Please see medication reconciliation for a list of current medications. Thank you for allowing us to participate in the care of this patient. The impression and plan of care has been dictated by Camilla Fallon, Nurse Practitioner as directed. Dr. Isaura MD I have performed a history and physical examination and medical decision making of this patient, discussed the same with the dictator, and agree with the dictators assessment and plan as written, documented as a scribe. Based on total visit time, I have performed more than 50% of this visit. Patient Condition at Discharge: Stable Plan - Discharge Summary Discharge Rx Participant: Yes New Discharge Prescriptions: New Budesonide-Formot 160-4.5 Mcg [Symbicort 160-4.5 Mcg Inhaler] 2 puff INHALATION BID #10.2 gm Losartan [Cozaar] 25 mg PO DAILY #30 tab Continue Isosorbide Mononitrate ER [Imdur] 90 mg PO DAILY FLUoxetine HCL [PROzac] 40 mg PO DAILY Nitroglycerin Sl Tabs [Nitrostat] 0.4 mg SL Q5M PRN PRN Reason: Chest Pain rOPINIRole HCL [Requip] 0.5 mg PO TID Ipratropium/Albuter 20-100Mcg [Combivent Respimat 20-100Mcg Inhaler] 1 puff INHALATION RT-QID Ranolazine [Ranexa] 1,000 mg PO BID Tiotropium Br/Olodaterol HCl [Stiolto Respimat Inhal [place]] 2 puff INHALATION RT-DAILY Sucralfate [Carafate] 1 gm PO AC-TID #90 tab FLUoxetine HCL [PROzac] 20 mg PO DAILY Ezetimibe [Zetia] 10 mg PO DAILY Metoprolol Tartrate [Lopressor] 50 mg PO BID-W/MEALS 30 Days #60 tab Aspirin 81 mg PO DAILY 30 Days #30 tab Ipratropium-Albuterol Nebulize [Duoneb 0.5 mg-3 mg/3 ml Soln] 3 ml INHALATION RT-QID PRN PRN Reason: Shortness Of Breath Atorvastatin [Lipitor] 40 mg PO HS Pantoprazole [Protonix] 40 mg PO BID 30 Days #60 tab Discontinued Famotidine [Pepcid] 20 mg PO HS Losartan Potassium [Cozaar] 100 mg PO DAILY Discharge Medication List FLUoxetine HCL [PROzac] 20 mg PO DAILY 04/26/22 [History] FLUoxetine HCL [PROzac] 40 mg PO DAILY 04/26/22 [History] Isosorbide Mononitrate ER [Imdur] 90 mg PO DAILY 04/26/22 [History] Nitroglycerin Sl Tabs [Nitrostat] 0.4 mg SL Q5M PRN 04/26/22 [History] rOPINIRole HCL [Requip] 0.5 mg PO TID 04/26/22 [History] Ezetimibe [Zetia] 10 mg PO DAILY 04/16/23 [History] Metoprolol Tartrate [Lopressor] 50 mg PO BID-W/MEALS 30 Days #60 tab 04/18/23 [Rx] Aspirin 81 mg PO DAILY 30 Days #30 tab 05/09/23 [Rx] Atorvastatin [Lipitor] 40 mg PO HS 08/13/23 [History] Ipratropium-Albuterol Nebulize [Duoneb 0.5 mg-3 mg/3 ml Soln] 3 ml INHALATION RT-QID PRN 08/13/23 [History] Ipratropium/Albuter 20-100Mcg [Combivent Respimat 20-100Mcg Inhaler] 1 puff INHALATION RT-QID 08/13/23 [History] Budesonide-Formot 160-4.5 Mcg [Symbicort 160-4.5 Mcg Inhaler] 2 puff INHALATION BID #10.2 gm 11/10/23 [Rx] Losartan [Cozaar] 25 mg PO DAILY #30 tab 11/10/23 [Rx] Pantoprazole [Protonix] 40 mg PO BID 30 Days #60 tab 11/10/23 [Rx] Ranolazine [Ranexa] 1,000 mg PO BID 11/10/23 [History] Sucralfate [Carafate] 1 gm PO AC-TID #90 tab 11/10/23 [Rx] Tiotropium Br/Olodaterol HCl [Stiolto Respimat Inhal [place]] 2 puff INHALATION RT-DAILY 11/10/23 [History] Follow up Appointment(s)/Referral(s): Te Fonseca DO [STAFF PHYSICIAN] - 1 Week Lucila Billy MD [STAFF PHYSICIAN] - 1 Week Reece Dobbs DO [Doctor of Osteopathic Medicine] - 1 Week Yara Wong MD [Primary Care Provider] - 3 Days
[2023-11-12 15:05] VITALS: BP 119/61; PULSE 83; RESP 18; TEMP 97.7
== END 2023-11-12 15:25 | disposition home or self-care (01) ==
LOC: EC 21:08 → 6NMEDSUR 11-10 00:19 → INTOOBSV 11-10 00:20 → OBSVTOIN 11-10 00:20 → 6NMEDSUR 11-10 04:29 → UNDODISIN 11-12 15:25
PROVIDERS: ADMIT Internal Medicine; ATTEND Internal Medicine
DX: K52.9 Noninfective gastroenteritis and colitis, unspecified (principal); J44.1 Chronic obstructive pulmonary disease with (acute) exacerbation; I11.9 Hypertensive heart disease without heart failure; K29.70 Gastritis, unspecified, without bleeding; I25.10 Atherosclerotic heart disease of native coronary artery without angina pectoris; K21.9 Gastro-esophageal reflux disease without esophagitis; R20.0 Anesthesia of skin; E78.5 Hyperlipidemia, unspecified; Z79.82 Long term (current) use of aspirin; Z79.899 Other long term (current) drug therapy; Z91.010 Allergy to peanuts; Z88.5 Allergy status to narcotic agent; Z95.5 Presence of coronary angioplasty implant and graft; Z11.52 Encounter for screening for COVID-19; Z11.59 Encounter for screening for other viral diseases
CPT/HCPCS: 96376 ×3; 96372 ×3; 96375 ×2; 96374; 99285; 36415; 94640 ×6; 93005; 97162; 97166; 80053 ×2; 82150; 83605; 83690; 84484 ×2; 85025 ×2; 85610; 85730; 81001; 84145; 87636; 71045; 71275; 74177; G0378 ×3; J1644 ×3; J2405; C9113 ×4; Q9967; J2919 ×2

== ENCOUNTER 2023-12-12 13:04 | Observation (INO) | payer MEDICARE ==
--- NOTE | 2023-12-12 13:25 | ED ---
General Adult HPI - General Chief complaint: Chest Pain Stated complaint: chest pain Time Seen by Provider: 12/12/23 13:06 Source: patient, EMS, RN notes reviewed Mode of arrival: EMS Limitations: no limitations - History of Present Illness Initial comments: Patient is a 63-year-old male present emergency department with concerns with chest discomfort. Onset of symptoms was just yesterday. Discomfort does worsen with exertion. Discomfort feels like a dull ache. Discomfort is mild at this time. There is associated dyspnea and nausea and sweating. Patient does have history of similar symptoms previously associated with cardiac disease and NV. - Related Data Home Medications Medication Instructions Recorded Confirmed FLUoxetine HCL [PROzac] 20 mg PO DAILY 04/26/22 11/10/23 FLUoxetine HCL [PROzac] 40 mg PO DAILY 04/26/22 11/10/23 Isosorbide Mononitrate ER [Imdur] 90 mg PO DAILY 04/26/22 11/10/23 Nitroglycerin Sl Tabs [Nitrostat] 0.4 mg SL Q5M PRN 04/26/22 11/10/23 rOPINIRole HCL [Requip] 0.5 mg PO TID 04/26/22 11/10/23 Ezetimibe [Zetia] 10 mg PO DAILY 04/16/23 11/10/23 Atorvastatin [Lipitor] 40 mg PO HS 08/13/23 11/10/23 Ipratropium-Albuterol Nebulize 3 ml INHALATION RT-QID PRN 08/13/23 11/10/23 [Duoneb 0.5 mg-3 mg/3 ml Soln] Ipratropium/Albuter 20-100Mcg 1 puff INHALATION RT-QID 08/13/23 11/10/23 [Combivent Respimat 20-100Mcg Inhaler] Ranolazine [Ranexa] 1,000 mg PO BID 11/10/23 11/10/23 Tiotropium Br/Olodaterol HCl 2 puff INHALATION RT-DAILY 11/10/23 11/10/23 [Stiolto Respimat Inhal [place]] Previous Rx's Medication Instructions Recorded Metoprolol Tartrate [Lopressor] 50 mg PO BID-W/MEALS 30 Days #60 04/18/23 tab Aspirin 81 mg PO DAILY 30 Days #30 tab 05/09/23 Budesonide-Formot 160-4.5 Mcg 2 puff INHALATION BID #10.2 gm 11/10/23 [Symbicort 160-4.5 Mcg Inhaler] Losartan [Cozaar] 25 mg PO DAILY #30 tab 11/10/23 Pantoprazole [Protonix] 40 mg PO BID 30 Days #60 tab 11/10/23 Sucralfate [Carafate] 1 gm PO AC-TID #90 tab 11/10/23 methylPREDNISolone Dose Pack 4 mg PO DIRECTED #21 tab 11/12/23 [Medrol Dose Pack] Allergies Allergy/AdvReac Type Severity Reaction Status Date / Time codeine Allergy Anaphylaxis Verified 12/12/23 13:16 peanut Allergy Migraine/Allergy Verified 12/12/23 13:16 testing Review of Systems ROS Statement: Those systems with pertinent positive or pertinent negative responses have been documented in the HPI. ROS Other: All systems not noted in ROS Statement are negative. Constitutional: Denies: fever Eyes: Denies: eye pain ENT: Denies: ear pain Respiratory: Denies: cough Cardiovascular: Reports: as per HPI, chest pain, dyspnea on exertion Endocrine: Denies: fatigue Gastrointestinal: Denies: abdominal pain Musculoskeletal: Denies: back pain Past Medical History Past Medical History: Chest Pain / Angina, COPD, CVA/TIA, GERD/Reflux, Hyperlipidemia, Hypertension, Myocardial Infarction (NV), Osteoarthritis (OA), Pneumonia Additional Past Medical History / Comment(s): COVID April 2022 and December 2022, multiple MIs, TIA, peripheral vision loss of left eye, white mass on brain in MRI, wears o2 at home 3L at night prn, heart monitor from cardiology office r/t tachycardia Last Myocardial Infarction Date:: 2020 History of Any Multi-Drug Resistant Organisms: None Reported Past Surgical History: Heart Catheterization With Stent Additional Past Surgical History / Comment(s): 2 cardiac stents Past Anesthesia/Blood Transfusion Reactions: No Reported Reaction Date of Last Stent Placement:: 2020 Past Psychological History: Anxiety Smoking Status: Former smoker Past Alcohol Use History: None Reported Past Drug Use History: None Reported - Past Family History Father Family Medical History: Myocardial Infarction (NV) Additional Family Medical History / Comment(s): from [place] Brother(s) Family Medical History: Myocardial Infarction (NV) Additional Family Medical History / Comment(s): from [place] General Exam Limitations: no limitations General appearance: alert, in no apparent distress Head exam: Present: normocephalic Eye exam: Present: normal appearance Neck exam: Present: normal inspection Respiratory exam: Present: normal lung sounds bilaterally Cardiovascular Exam: Present: regular rate, normal rhythm, normal heart sounds Expanded Peripheral pulses: 2+: Radial (R), Radial (L), Posterior Tibialis (R), Posterior Tibialis (L) GI/Abdominal exam: Present: soft. Absent: tenderness Extremities exam: Present: normal inspection. Absent: pedal edema, calf tenderness Neurological exam: Present: alert Psychiatric exam: Present: normal affect, normal mood Skin exam: Present: normal color Course Vital Signs 12/12/23 13:08 Temperature 98.0 F Pulse Rate 82 Respiratory 18 Rate Blood Pressure 129/81 O2 Sat by Pulse 96 Oximetry EKG Findings - EKG Results: EKG: interpreted by [facility], sinus rhythm, normal axis, normal QRS, normal ST/T Medical Decision Making - Medical Decision Making Was pt. sent in by a medical professional or institution (, PA, WIRE SPINNER, urgent care, hospital, or fpc...) When possible be specific @ -No Did you speak to anyone other than the patient for history (EMS, parent, family, police, friend...)? What history was obtained from this source @ -No Did you review nursing and triage notes (agree or disagree)? Why? @ -I reviewed and agree with nursing and triage notes Were old charts reviewed (outside hosp., previous admission, EMS record, old EKG, old radiological studies, urgent care reports/EKG's, fpc records)? Report findings @ -No old charts were reviewed Differential Diagnosis (chest pain, altered mental status, abdominal pain women, abdominal pain men, vaginal bleeding, weakness, fever, dyspnea, syncope, headache, dizziness, GI bleed, back pain, seizure, CVA, palpatations, mental health, musculoskeletal)? @ -Differential Chest Pain: Stable Angina, Unstable Angina, STEMI, NSTEMI Aortic Dissection, Pneumothorax, Musculoskeletal, Esophageal Spasm GERD, Cholecystitis, Pancreatitis, Zoster, t his is not meant to be an all-inclusive list. EKG interpreted by me (3pts min.). @ -As above X-rays interpreted by me (1pt min.). @ -Chest x-ray shows no acute process CT interpreted by me (1pt min.). @ -None done U/S interpreted by me (1pt. min.). @ -None done What testing was considered but not performed or refused? (CT, X-rays, U/S, labs)? Why? @ -D-dimer was elevated however admitting physician has already ordered CT scan What meds were considered but not given or refused? Why? @ -None Did you discuss the management of the patient with other professionals (professionals i.e. DrChad, PA, WIRE SPINNER, lab, RT, psych nurse, health and social care teacher, research investigator, teacher, air antisubmarine officer, casey saw operator)? Give summary @ -Case discussed with Dr. Saul, who will admit covering Dr. Anne. Was smoking cessation discussed for >3mins.? @ -No Was critical care preformed (if so, how long)? @ -No Were there social determinants of health that impacted care today? How? (Homelessness, low income, unemployed, alcoholism, drug addiction, transportation, low edu. Level, literacy, decrease access to med. care, senior care, rehab)? @ -No Was there de-escalation of care discussed even if they declined (Discuss DNR or withdrawal of care, Hospice)? DNR status @ -No What co-morbidities impacted this encounter? (DM, HTN, Smoking, COPD, CAD, Cancer, CVA, ARF, Chemo, Hep., AIDS, mental health diagnosis, sleep apnea, mor bid obesity)? @ -Previous cardiac disease Was patient admitted / discharged? Hospital course, mention meds given and route, prescriptions, significant lab abnormalities, going to OR and other pertinent info. @ -Patient presents with chest discomfort similar to previous cardiac disease. First troponin unremarkable. Patient will have CT scan for D-dimer. Patient and family updated on results and plan. Admission orders written. Undiagnosed new problem with uncertain prognosis? @ -No Drug Therapy requiring intensive monitoring for toxicity (Heparin, Nitro, Insulin, Cardizem)? @ -No Were any procedures done? @ -No Diagnosis/symptom? @ -Chest pain Acute, or Chronic, or Acute on Chronic? @ -Acute Uncomplicated (without systemic symptoms) or Complicated (systemic symptoms)? @ -Default Side effects of treatment? @ -No Exacerbation, Progression, or Severe Exacerbation? @ -No Poses a threat to life or bodily function? How? (Chest pain, USA, NV, pneumonia, PE, COPD, DKA, ARF, appy, cholecystitis, CVA, Diverticulitis, Homicidal, Suicidal, threat to staff... and all critical care pts) @ -No - Lab Data Result diagrams: 12/12/23 13:26 12/12/23 13:26 Lab Results 12/12/23 12/12/23 12/12/23 Range/Units 13:26 13:26 13:26 WBC 6.4 (3.8-10.6) k/uL RBC 4.11 L (4.30-5.90) m/uL Hgb 13.2 (13.0-17.5) gm/dL Hct 37.1 L (39.0-53.0) % MCV 90.2 (80.0-100.0) fL MCH 32.1 (25.0-35.0) pg MCHC 35.6 (31.0-37.0) g/dL RDW 14.0 (11.5-15.5) % Plt Count 233 (150-450) k/uL MPV 7.4 Neutrophils % 67 % Lymphocytes % 18 % Monocytes % 8 % Eosinophils % 4 % Basophils % 0 % Neutrophils # 4.3 (1.3-7.7) k/uL Lymphocytes # 1.2 (1.0-4.8) k/uL Monocytes # 0.5 (0-1.0) k/uL Eosinophils # 0.2 (0-0.7) k/uL Basophils # 0.0 (0-0.2) k/uL PT 10.7 (10.0-12.5) sec INR 1.0 (<1.2) APTT 24.3 (22.0-30.0) sec D-Dimer 1.09 H (<0.60) mg/L FEU Sodium 137 (137-145) mmol/L Potassium 3.7 (3.5-5.1) mmol/L Chloride 107 (98-107) mmol/L Carbon Dioxide 22 (22-30) mmol/L Anion Gap 8 mmol/L BUN 12 (9-20) mg/dL Creatinine 0.89 (0.66-1.25) mg/dL Est GFR (CKD-EPI)AfAm >90 (>60 ml/min/1.73 sqM) Est GFR (CKD-EPI)NonAf >90 (>60 ml/min/1.73 sqM) Glucose 97 (74-99) mg/dL Calcium 8.7 (8.4-10.2) mg/dL Magnesium 1.5 L (1.6-2.3) mg/dL Total Bilirubin 0.7 (0.2-1.3) mg/dL AST 28 (17-59) U/L ALT 35 (4-49) U/L Alkaline Phosphatase 102 (38-126) U/L Troponin I (0.000-0.034) ng/mL NT-Pro-B Natriuret Pep 22 pg/mL Total Protein 6.1 L (6.3-8.2) g/dL Albumin 3.9 (3.5-5.0) g/dL 12/12/23 Range/Units 13:26 WBC (3.8-10.6) k/uL RBC (4.30-5.90) m/uL Hgb (13.0-17.5) gm/dL Hct (39.0-53.0) % MCV (80.0-100.0) fL MCH (25.0-35.0) pg MCHC (31.0-37.0) g/dL RDW (11.5-15.5) % Plt Count (150-450) k/uL MPV Neutrophils % % Lymphocytes % % Monocytes % % Eosinophils % % Basophils % % Neutrophils # (1.3-7.7) k/uL Lymphocytes # (1.0-4.8) k/uL Monocytes # (0-1.0) k/uL Eosinophils # (0-0.7) k/uL Basophils # (0-0.2) k/uL PT (10.0-12.5) sec INR (<1.2) APTT (22.0-30.0) sec D-Dimer (<0.60) mg/L FEU Sodium (137-145) mmol/L Potassium (3.5-5.1) mmol/L Chloride (98-107) mmol/L Carbon Dioxide (22-30) mmol/L Anion Gap mmol/L BUN (9-20) mg/dL Creatinine (0.66-1.25) mg/dL Est GFR (CKD-EPI)AfAm (>60 ml/min/1.73 sqM) Est GFR (CKD-EPI)NonAf (>60 ml/min/1.73 sqM) Glucose (74-99) mg/dL Calcium (8.4-10.2) mg/dL Magnesium (1.6-2.3) mg/dL Total Bilirubin (0.2-1.3) mg/dL AST (17-59) U/L ALT (4-49) U/L Alkaline Phosphatase (38-126) U/L Troponin I <0.012 (0.000-0.034) ng/mL NT-Pro-B Natriuret Pep pg/mL Total Protein (6.3-8.2) g/dL Albumin (3.5-5.0) g/dL Disposition Clinical Impression: Chest pain Disposition: ADMITTED IP TO THIS HOSP Is patient prescribed a controlled substance at d/c from ED?: No Referrals: Yara Wong MD [Primary Care Provider] - 1-2 days Time of Disposition: 14:26
--- NOTE | 2023-12-12 13:46 | XR ---
EXAMINATION TYPE: XR chest 2V DATE OF EXAM: 12/12/2023 COMPARISON: 11/09/2023 INDICATION: Chest pain TECHNIQUE: Frontal and lateral views of the chest are obtained. FINDINGS: The heart size is normal. The pulmonary vasculature is normal. The lungs are clear. IMPRESSION: 1. No acute pulmonary process.
[2023-12-12] MEDS: ASPIRIN 81 MG PO STA (13:49)
[2023-12-12] MEDS: NITROGLYCERIN OINT 1 INCH/GM PACKET TOPICAL STA (13:51)
[2023-12-12 14:07] LABS: ALT 35 U/L (4-49); AST 28 U/L (17-59); African American GFR (CKD) >90 (>60 ml/min/1.73 sqM); Albumin 3.9 g/dL (3.5-5.0); Alkaline Phosphatase 102 U/L (38-126); Anion Gap 8 mmol/L; Blood Urea Nitrogen 12 mg/dL (9-20); Calcium 8.7 mg/dL (8.4-10.2); Carbon Dioxide 22 mmol/L (22-30); Chloride 107 mmol/L (98-107); Glucose 97 mg/dL (74-99); Magnesium 1.5 mg/dL (1.6-2.3); Non-African American GFR(CKD) >90 (>60 ml/min/1.73 sqM); Potassium 3.7 mmol/L (3.5-5.1); Sodium 137 mmol/L (137-145); Total Bilirubin 0.7 mg/dL (0.2-1.3); Total Protein 6.1 g/dL (6.3-8.2)
[2023-12-12 14:09] LABS: Partial Thromboplastin Time 24.3 sec (22.0-30.0); Prothrombin Time 10.7 sec (10.0-12.5)
[2023-12-12 14:12] LABS: Basophils % (A) 0 %; Eosinophils # (A) 0.2 k/uL (0-0.7); Eosinophils % (A) 4 %; HCT 37.1 % (39.0-53.0); HGB 13.2 gm/dL (13.0-17.5); Lymphocytes # (A) 1.2 k/uL (1.0-4.8); Lymphocytes % (A) 18 %; MCH 32.1 pg (25.0-35.0); MCHC 35.6 g/dL (31.0-37.0); MCV 90.2 fL (80.0-100.0); Mean Platelet Volume 7.4; Monocytes # (A) 0.5 k/uL (0-1.0); Monocytes % (A) 8 %; Neutrophils # (A) 4.3 k/uL (1.3-7.7); Neutrophils % (A) 67 %; Platelet Count 233 k/uL (150-450); RBC 4.11 m/uL (4.30-5.90); WBC 6.4 k/uL (3.8-10.6)
[2023-12-12 14:15] LABS: NT-Pro-B-Type Natriuretic Pept 22 pg/mL
[2023-12-12] MEDS ORDERED: NITROGLYCERIN SL TABS 0.4 MG TAB SUBLINGUAL PRN (14:26)
--- NOTE | 2023-12-12 14:55 | CT ---
EXAMINATION TYPE: CT angio chest DATE OF EXAM: 12/12/2023 COMPARISON: None HISTORY: sob, elevated d dimer CT DLP: 340.2 mGycm CONTRAST: CT chest with contrast and 3D reconstruction with MIP imaging is performed with IV Contrast, patient injected with 100 ml mL of Isovue 370. Contrast-enhanced CT of the chest was performed through the course of the pulmonary arteries with alondra g and mediastinal window settings submitted. 3D reconstruction with MIP imaging was also performed. PULMONARY ARTERIES: The pulmonary arteries and their major tributaries are patent. I do not see anderson dence for sizable filling defect to suggest pulmonary embolic process. LUNGS: Mild scattered emphysematous changes seen. The lungs are clear and free of infiltrate. No evid ence for atelectasis. No pulmonary nodule or mass is detected. No pleural effusion. MEDIASTINUM: Thoracic aorta is of normal caliber.. The heart is not enlarged. No evidence for media stinal mass. No mediastinal lymph nodes greater than 1cm. HILAR STRUCTURES: No evidence for mass. No hilar lymph nodes greater than 1 cm. UPPER ABDOMEN: No significant abnormality is seen. IMPRESSION: 1. No evidence for Pulmonary embolism at this time.
[2023-12-12] MEDS: MAGNESIUM OXIDE 400 MG TAB PO STA (15:51)
[2023-12-12] MEDS: NITROGLYCERIN OINT 1 INCH/GM PACKET TOPICAL SCH (21:06)
[2023-12-12] MEDS: RANOLAZINE 500 MG TAB.ER.12H PO SCH (22:02)
[2023-12-12] MEDS: METOPROLOL TARTRATE 50 MG TAB PO SCH ×2 (22:04→22:25)
[2023-12-12] MEDS: PANTOPRAZOLE 40 MG TABLET PO SCH (22:31)
[2023-12-12] MEDS: FORMOTEROL FUMARATE 20 MCG/2 ML NEBU INHALATION SCH (22:32)
[2023-12-12] MEDS: IPRATROPIUM 0.5 MG/2.5 ML NEBU INHALATION SCH (22:59)
--- NOTE | 2023-12-12 23:50 | P.HPIM ---
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 Patient states that he has been having chest discomfort for the past 2 to 3 days. He was seen by home visiting nurse today and also found to have elevated blood pressure with SBP in 200s. Patient is also having exertional dyspnea for the past 1 week. He was also complaining of dizziness and nauseated when he gets up and walk. Patient did take nitroglycerin tablet at home x 3 and was also placed on Nitropaste while in the ER. Patient states her symptoms seems to be improved bu t not sure. Denies any radiation of the pain. Denies any diaphoresis. No leg swelling. Laboratory data showed WBC 6.4 hemoglobin 13.1 platelets 233 D-dimer 1.09 Sodium 137 potassium 3.7 chloride 107 bicarb is 22 BUN 12 and creatinine 0.89 and blood sugar 97 magnesium 1.5 Chest x-ray showed no acute cardiopulmonary process. EKG showed sinus rhythm with no ST-T elevation. Review of Systems Constitutional: Patient denies any fever or chills . No generalized weakness or weight loss. Abdomen: Patient denied nausea vomiting and diarrhea and abdominal pain. Cardiovascular: Patient does complain of chest discomfort, shortness of breath and dizziness. No leg swelling Respiratory: patient denied any cough or sputum production. No shortness of breath Neurologic: Patient denied any numbness or tingling. no headache. Musculoskeletal: Patient denies any complaints of joint swelling or deformity. Skin: Negative Psychiatric: Negative Endocrine: No heat or cold intolerance. No recent weight gain. Genitourinary: No dysuria or hematuria. All other 14 point ROS negative except the above Past Medical History Past Medical History: Chest Pain / Angina, COPD, CVA/TIA, GERD/Reflux, Hyperlipidemia, Hypertension, Myocardial Infarction (MD), Osteoarthritis (OA), Pneumonia Additional Past Medical History / Comment(s): COVID April 2022 and December 2022, multiple MIs, TIA, peripheral vision loss of left eye, white mass on brain in MRI, wears o2 at home 3L at night prn, heart monitor from cardiology office r/t tachycardia Last Myocardial Infarction Date:: 2020 History of Any Multi-Drug Resistant Organisms: None Reported Past Surgical History: Heart Catheterization With Stent Additional Past Surgical History / Comment(s): 2 cardiac stents Past Anesthesia/Blood Transfusion Reactions: No Reported Reaction Date of Last Stent Placement:: 2020 Past Psychological History: Anxiety Smoking Status: Former smoker Past Alcohol Use History: None Reported Past Drug Use History: None Reported - Past Family History Father Family Medical History: Myocardial Infarction (MD) Additional Family Medical History / Comment(s): from [place] Brother(s) Family Medical History: Myocardial Infarction (MD) Additional Family Medical History / Comment(s): from [place] Medications and Allergies Home Medications Medication Instructions Recorded Confirmed Type FLUoxetine HCL [PROzac] 20 mg PO DAILY 04/26/22 12/12/23 History FLUoxetine HCL [PROzac] 40 mg PO DAILY 04/26/22 12/12/23 History Isosorbide Mononitrate ER [Imdur] 90 mg PO DAILY 04/26/22 12/12/23 History Nitroglycerin Sl Tabs [Nitrostat] 0.4 mg SL Q5M PRN 04/26/22 12/12/23 History rOPINIRole HCL [Requip] 0.5 mg PO TID 04/26/22 12/12/23 History Ezetimibe [Zetia] 10 mg PO DAILY 04/16/23 12/12/23 History Metoprolol Tartrate [Lopressor] 50 mg PO BID-W/MEALS 30 Days #60 04/18/23 12/12/23 Rx tab Aspirin 81 mg PO DAILY 30 Days #30 tab 05/09/23 12/12/23 Rx Ipratropium-Albuterol Nebulize 3 ml INHALATION RT-QID PRN 08/13/23 12/12/23 History [Duoneb 0.5 mg-3 mg/3 ml Soln] Ipratropium/Albuter 20-100Mcg 1 puff INHALATION RT-QID 08/13/23 12/12/23 History [Combivent Respimat 20-100Mcg Inhaler] Losartan [Cozaar] 25 mg PO DAILY #30 tab 11/10/23 12/12/23 Rx Pantoprazole [Protonix] 40 mg PO BID 30 Days #60 tab 11/10/23 12/12/23 Rx Ranolazine [Ranexa] 1,000 mg PO BID 11/10/23 12/12/23 History Sucralfate [Carafate] 1 gm PO AC-TID #90 tab 11/10/23 12/12/23 Rx Tiotropium Br/Olodaterol HCl 2 puff INHALATION RT-DAILY 11/10/23 12/12/23 History [Stiolto Respimat Inhal [place]] Atorvastatin [Lipitor] 80 mg PO DAILY 12/12/23 12/12/23 History Furosemide [Lasix] 20 mg PO DAILY 12/12/23 12/12/23 History Allergies Allergy/AdvReac Type Severity Reaction Status Date / Time codeine Allergy Anaphylaxis Verified 12/12/23 15:49 peanut Allergy Migraine/Allergy Verified 12/12/23 15:49 testing Physical Exam Vitals: Vital Signs Temp Pulse Resp BP Pulse Ox 12/12/23 23:09 75 12/12/23 22:59 75 12/12/23 17:00 71 18 100/63 93 L 12/12/23 15:51 79 18 117/71 95 12/12/23 14:30 81 18 117/91 95 12/12/23 14:00 82 18 123/82 95 12/12/23 13:30 84 18 115/82 95 12/12/23 13:08 98.0 F 82 18 129/81 96 Intake and Output 12/12/23 12/12/23 12/13/23 14:59 22:59 06:59 Other: Weight 68.039 kg PHYSICAL EXAMINATION: Patient is lying in the bed comfortably, no acute distress, awake alert and oriented.. HEENT: Normocephalic. Neck is supple. Pupils reactive. Nostrils clear. Oral cavity is moist. Neck reveals no JVD, carotid bruits, or thyromegaly. CHEST EXAMINATION: Trachea is central. Symmetrical expansion. Bibasilar diminished sounds. No wheezing or rhonchi.. Nonlabored breathing. CARDIAC: Normal S1, S2 with no gallops. No murmurs ABDOMEN: Soft. Bowel sounds normal. No organomegaly. No abdominal bruits. Extremities: reveal no edema. No clubbing or cyanosis Neurologically awake, alert, oriented x3 with well-coordinated movements. No focal deficits noted Skin: No rash or skin lesions. Psychiatric: Coperative. Nonsuicidal Musculoskeletal: No joint swelling or deformity. Normal range of motion. Results CBC & Chem 7: 12/12/23 13:26 12/12/23 13:26 Labs: Abnormal Lab Results - Last 24 Hours (Table) 12/12/23 12/12/23 12/12/23 Range/Units 13:26 13:26 13:26 RBC 4.11 L (4.30-5.90) m/uL Hct 37.1 L (39.0-53.0) % D-Dimer 1.09 H (<0.60) mg/L FEU Magnesium 1.5 L (1.6-2.3) mg/dL Total Protein 6.1 L (6.3-8.2) g/dL Assessment and Plan Assessment: Chest pain/heaviness with known history of coronary artery disease with prior stent placement. Rule out ACS. 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 GI and DVT prophylaxis with PPI and heparin subcu Plan: Patient will be continued on telemonitoring. Serial EKG and troponin x 3. CTA chest was ordered to rule elevated D-dimer level to rule out PE Continue with aspirin, statins and metoprolol. Continue with DuoNebs, Pulmicort and Perforomist inhalation. Cardiology was consulted for further evaluation. Continue to follow closely. Discussed with the patient and his at bedside in detail. Time with Patient: Greater than 30
[2023-12-13] MEDS: HEPARIN SODIUM,PORCINE 5,000 UNIT/ML 1 ML VIAL SQ SCH (03:23)
[2023-12-13 03:48] VITALS: RESP 16
[2023-12-13] MEDS: IPRATROPIUM-ALBUTEROL 3 ML NEB INHALATION PRN (04:49)
[2023-12-13] MEDS ORDERED: FORMOTEROL FUMARATE 20 MCG/2 ML NEBU INHALATION SCH (08:00)
[2023-12-13] MEDS ORDERED: NON FORMULARY DRUG (Ipratropium/Albuter 20-100mcg 120 PUFF Each) INHALATION SCH (08:00)
[2023-12-13] MEDS ORDERED: IPRATROPIUM 0.5 MG/2.5 ML NEBU INHALATION SCH (08:00)
[2023-12-13] MEDS: BUDESONIDE 0.5 MG/2 ML NEBU INHALATION SCH (08:01)
[2023-12-13 09:21] LABS: Basophils # (A) 0.02 X 10*3/uL (0.00-0.10); Basophils % (A) 0.3 %; Eosinophils # (A) 0.24 X 10*3/uL (0.04-0.35); Eosinophils % (A) 3.4 %; HCT 37.4 % (39.6-50.0); Lymphocytes # (A) 1.32 X 10*3/uL (0.90-5.00); Lymphocytes % (A) 18.9 %; MCH 31.4 pg (27.0-32.0); MCHC 34.8 g/dL (32.0-37.0); MCV 90.3 FL (80.0-97.0); Mean Platelet Volume 9.4 FL (9.5-12.2); Monocytes # (A) 0.78 X 10*3/uL (0.20-1.00); Monocytes % (A) 11.1 %; NRBC Per 100 WBC 0 X 10*3/uL (0.00-0.01); Neutrophils % (A) 65.7 %; Platelet Count 228 X 10*3/uL (140-440); RBC 4.14 X 10*6/uL (4.40-5.60); RDW 13.2 % (11.5-14.5)
[2023-12-13 09:26] LABS: BUN/Creat Ratio 13.18 Ratio (12.00-20.00); Blood Urea Nitrogen 14.5 mg/dL (9.0-27.0); Carbon Dioxide 26.3 mmol/L (21.6-31.8); Chloride 103 mmol/L (96-109); Chol/HDL Ratio 4.17 Ratio; Glucose 89 mg/dL (70-110); LDL Cholesterol,Calculated 72.9 mg/dL (0.0-131.0); Potassium 4.2 mmol/L (3.5-5.5); Sodium 141 mmol/L (135-145)
[2023-12-13] MEDS: ASPIRIN 325 MG TAB PO SCH (10:37)
[2023-12-13] MEDS: FLUoxetine HCL 20 MG CAP PO SCH ×2 (10:38)
[2023-12-13] MEDS: EZETIMIBE 10 MG TAB PO SCH (10:38)
[2023-12-13] MEDS: FUROSEMIDE 20 MG TAB PO SCH (10:38)
[2023-12-13] MEDS: SUCRALFATE 1 GM TAB PO SCH (10:38)
[2023-12-13] MEDS: LOSARTAN 25 MG TAB PO SCH (10:38)
[2023-12-13] MEDS: ATORVASTATIN 80 MG TAB PO SCH (10:39)
--- NOTE | 2023-12-13 11:04 | P.CRDCN ---
History of Present Illness Consult date: 12/13/23 Requesting physician: Susan Saul Reason for Consult (text): cp Chief complaint: dizziness, chest discomfort History of present illness: This is a pleasant 63-year-old gentleman who follows with Dr. Mccrary in the office. He has a known history of COPD on home oxygen, CAD with stent placement x 2 in the past with most recent cardiac catheterization in April showing a 50 to 60% lesion in the circumflex with a normal IFR and a jailed OM 3 that is chronic, hypertension, hyperlipidemia, history of CVA/TIA, and remote history of smoking. Presented to the hospital at the advice of a home care nurse due to systolic blood pressure in the 200s. Over the last few days he has been feeling quite dizzy and lightheaded with some nausea when he is up and walking around. He has got some chest discomfort at times but does not seem to be consistent with what he has felt in the past. His dyspnea on exertion is mildly worse compared to his baseline. EKG and cardiac enzymes have been unremarkable. Upon examination patient is resting comfortably in bed. Denies any complaints of chest discomfort at this time. He feels his breathing is relatively stable. He has no current complaints of dizziness or lightheadedness. Blood pressure has been well-controlled. Echocardiogram in April showed a normal LV systolic function. He has no orthopnea, PND or edema. Past Medical History Past Medical History: Chest Pain / Angina, COPD, CVA/TIA, GERD/Reflux, Hyperlipidemia, Hypertension, Myocardial Infarction (MD), Osteoarthritis (OA), Pneumonia Additional Past Medical History / Comment(s): COVID April 2022 and December 2022, multiple MIs, TIA, peripheral vision loss of left eye, white mass on brain in MRI, wears o2 at home 3L at night prn, Last Myocardial Infarction Date:: 2020 History of Any Multi-Drug Resistant Organisms: None Reported Past Surgical History: Heart Catheterization With Stent Additional Past Surgical History / Comment(s): 2 cardiac stents Past Anesthesia/Blood Transfusion Reactions: No Reported Reaction Date of Last Stent Placement:: 2020 Past Psychological History: Anxiety Smoking Status: Former smoker Past Alcohol Use History: None Reported Past Drug Use History: None Reported - Past Family History Father Family Medical History: Myocardial Infarction (MD) Additional Family Medical History / Comment(s): from MD Brother(s) Family Medical History: Myocardial Infarction (MD) Additional Family Medical History / Comment(s): from MD Medications and Allergies Home Medications Medication Instructions Recorded Confirmed Type FLUoxetine HCL [PROzac] 20 mg PO DAILY 04/26/22 12/12/23 History FLUoxetine HCL [PROzac] 40 mg PO DAILY 04/26/22 12/12/23 History Isosorbide Mononitrate ER [Imdur] 90 mg PO DAILY 04/26/22 12/12/23 History Nitroglycerin Sl Tabs [Nitrostat] 0.4 mg SL Q5M PRN 04/26/22 12/12/23 History rOPINIRole HCL [Requip] 0.5 mg PO TID 04/26/22 12/12/23 History Ezetimibe [Zetia] 10 mg PO DAILY 04/16/23 12/12/23 History Metoprolol Tartrate [Lopressor] 50 mg PO BID-W/MEALS 30 Days #60 04/18/23 12/12/23 Rx tab Aspirin 81 mg PO DAILY 30 Days #30 tab 05/09/23 12/12/23 Rx Ipratropium-Albuterol Nebulize 3 ml INHALATION RT-QID PRN 08/13/23 12/12/23 History [Duoneb 0.5 mg-3 mg/3 ml Soln] Ipratropium/Albuter 20-100Mcg 1 puff INHALATION RT-QID 08/13/23 12/12/23 History [Combivent Respimat 20-100Mcg Inhaler] Losartan [Cozaar] 25 mg PO DAILY #30 tab 11/10/23 12/12/23 Rx Pantoprazole [Protonix] 40 mg PO BID 30 Days #60 tab 11/10/23 12/12/23 Rx Ranolazine [Ranexa] 1,000 mg PO BID 11/10/23 12/12/23 History Sucralfate [Carafate] 1 gm PO AC-TID #90 tab 11/10/23 12/12/23 Rx Tiotropium Br/Olodaterol HCl 2 puff INHALATION RT-DAILY 11/10/23 12/12/23 History [Stiolto Respimat Inhal [place]] Atorvastatin [Lipitor] 80 mg PO DAILY 12/12/23 12/12/23 History Furosemide [Lasix] 20 mg PO DAILY 12/12/23 12/12/23 History Allergies Allergy/AdvReac Type Severity Reaction Status Date / Time codeine Allergy Anaphylaxis Verified 12/12/23 15:49 peanut Allergy Migraine/Allergy Verified 12/12/23 15:49 testing Physical Exam Vitals: Vital Signs Temp Pulse Pulse Resp BP BP Pulse Ox 12/13/23 08:31 68 12/13/23 08:21 68 12/13/23 08:19 68 12/13/23 08:02 72 12/13/23 08:00 64 16 12/13/23 07:00 97.4 F L 64 16 133/75 99 12/13/23 06:37 67 16 126/70 99 12/13/23 06:00 59 L 16 126/76 99 12/13/23 05:01 64 12/13/23 05:00 61 16 114/69 98 12/13/23 04:50 63 12/13/23 04:00 58 L 16 128/80 99 12/13/23 03:46 66 16 114/69 100 12/13/23 03:00 68 20 136/81 100 12/12/23 23:09 75 12/12/23 22:59 75 12/12/23 21:00 62 12/12/23 17:00 71 18 100/63 93 L 12/12/23 15:51 79 18 117/71 95 12/12/23 14:30 81 18 117/91 95 12/12/23 14:00 82 18 123/82 95 12/12/23 13:30 84 18 115/82 95 12/12/23 13:08 98.0 F 82 18 129/81 96 Intake and Output 12/12/23 12/13/23 12/13/23 22:59 06:59 14:59 Intake Total 118 Balance 118 Intake: Oral 118 Other: Voiding Method Toilet Weight 68.039 kg PHYSICAL EXAMINATION: This is a 63-year-old gentleman in no apparent distress at the time of my examination. VITAL SIGNS: Reviewed. HEENT: Head is atraumatic, normocephalic. Pupils are equal, round. Sclerae anicteric. Conjunctivae are clear. Mucous membranes of the mouth are moist. Neck is supple. There is no elevated jugular venous pressure. No carotid bruit is heard. CHEST EXAMINATION: Lungs reveal diminished air entry bilaterally with faint expiratory wheezing throughout. No rales or rhonchi. Respirations even and nonlabored. HEART EXAMINATION: Heart regular, positive S1 and S2. No S3. No S4. No clicks, rubs or murmurs. ABDOMEN: Soft, nontender. Bowel sounds are heard. No organomegaly noted. EXTREMITIES: 2+ peripheral pulses with no evidence of peripheral edema and no calf tenderness noted. NEUROLOGIC EXAMINATION: Patient is awake, alert and oriented x3. Results 12/13/23 06:00 12/13/23 06:00 Cardiac Enzymes 12/12/23 12/12/23 12/12/23 Range/Units 13:26 13: 16:43 AST 28 (17-59) U/L Troponin I <0.012 <0.012 (0.000-0.034) ng/mL 12/12/23 Range/Units 19:40 AST (17-59) U/L Troponin I <0.012 (0.000-0.034) ng/mL Coagulation 12/12/23 Range/Units 13: PT 10.7 (10.0-12.5) sec APTT 24.3 (22.0-30.0) sec Lipids 12/13/23 Range/Units 06:00 Triglycerides 202.00 H (0.00-149.00) mg/dL Cholesterol 149.00 (0.00-200.00) mg/dL HDL Cholesterol 35.70 L (40.00-60.00) mg/dL Cholesterol/HDL Ratio 4.17 Ratio CBC 12/12/23 12/13/23 Range/Units 13:26 06:00 WBC 6.4 7.00 (3.8-10.6) k/uL RBC 4.11 L 4.14 L (4.30-5.90) m/uL Hgb 13.2 13.0 (13.0-17.5) gm/dL Hct 37.1 L 37.4 L (39.0-53.0) % Plt Count 233 228 (150-450) k/uL Comprehensive Metabolic Panel 12/12/23 12/13/23 Range/Units 13:26 06:00 Sodium 137 141 (137-145) mmol/L Potassium 3.7 4.2 (3.5-5.1) mmol/L Chloride 107 103 (98-107) mmol/L Carbon Dioxide 22 26.3 (22-30) mmol/L BUN 12 14.5 (9-20) mg/dL Creatinine 0.89 1.1 (0.66-1.25) mg/dL Glucose 97 89 (74-99) mg/dL Calcium 8.7 9.0 (8.4-10.2) mg/dL AST 28 (17-59) U/L ALT 35 (4-49) U/L Alkaline Phosphatase 102 (38-126) U/L Total Protein 6.1 L (6.3-8.2) g/dL Albumin 3.9 (3.5-5.0) g/dL Current Medications Generic Name Dose Route Start Last Admin Trade Name Freq PRN Reason Stop Dose Admin Albuterol/Ipratropium 3 ml 12/12/23 20:39 12/13/23 04:49 Ipratropium-Albuterol 3 Ml Neb INHALATION 3 ml RT-QID PRN Administration Shortness Of Breath Aspirin 81 mg 12/14/23 09:00 Aspirin 81 Mg PO DAILY MAIKEL Atorvastatin Calcium 80 mg 12/13/23 09:00 12/13/23 10:39 Atorvastatin 80 Mg Tab PO 80 mg DAILY MAIKEL Administration Budesonide 0.5 mg 12/13/23 08:00 12/13/23 08:01 Budesonide 0.5 Mg/2 Ml Nebu INHALATION 0.5 mg RT-BID MAIKEL Administration Ezetimibe 10 mg 12/13/23 09:00 12/13/23 10:38 Ezetimibe 10 Mg Tab PO 10 mg DAILY MAIKEL Administration Fluoxetine HCl 20 mg 12/13/23 09:00 12/13/23 10:38 Fluoxetine Hcl 20 Mg Cap PO 20 mg DAILY MAIKEL Administration Fluoxetine HCl 40 mg 12/13/23 09:00 12/13/23 10:38 Fluoxetine Hcl 20 Mg Cap PO 40 mg DAILY MAIKEL Administration Formoterol Fumarate 20 mcg 12/12/23 22:26 12/13/23 08:01 Formoterol Fumarate 20 Mcg/2 Ml Nebu INHALATION 20 mcg RT-BID MAIKEL Administration Furosemide 20 mg 12/13/23 09:00 12/13/23 10:38 Furosemide 20 Mg Tab PO 20 mg DAILY MAIKEL Administration Heparin Sodium (Porcine) 5,000 unit 12/13/23 00:00 12/13/23 10:39 Heparin Sodium,Porcine 5,000 Unit/Ml 1 Ml Vial SQ 5,000 unit Q8HR MAIKEL Administration Ipratropium [place] 0.5 mg 12/12/23 22:22 12/13/23 08:01 Ipratropium 0.5 Mg/2.5 Ml Nebu INHALATION 0.5 mg RT-QID MAIKEL Administration Losartan Potassium 25 mg 12/13/23 09:00 12/13/23 10:38 Losartan 25 Mg Tab PO 25 mg DAILY MAIKEL Administration Metoprolol Tartrate 50 mg 12/12/23 22:21 12/13/23 10:38 Metoprolol Tartrate 50 Mg Tab PO 50 mg BID-W/MEALS MAIKEL Administration Nitroglycerin 0.4 mg 12/12/23 14:26 Nitroglycerin Sl Tabs 0.4 Mg Tab SUBLINGUAL Q5M PRN Chest Pain Pantoprazole Sodium 40 mg 12/12/23 21:00 12/13/23 10:38 Pantoprazole 40 Mg Tablet PO 40 mg BID MAIKEL Administration Ranolazine 1,000 mg 12/12/23 21:00 12/13/23 10:38 Ranolazine 500 Mg Tab.Er.12h PO 1,000 mg BID MAIKEL Administration Ropinirole HCl 0.5 mg 12/12/23 22:00 12/12/23 22:17 Ropinirole Hcl 0.25 Mg Tab PO 0.5 mg TID MAIKEL Administration Sucralfate 1 gm 12/13/23 07:30 12/13/23 10:38 Sucralfate 1 Gm Tab PO 1 gm AC-TID MAIKEL Administration Intake and Output 12/12/23 12/13/23 12/13/23 22:59 06:59 14:59 Intake Total 118 Balance 118 Intake: Oral 118 Other: Voiding Method Toilet Weight 68.039 kg Patient Weight 12/14/23 06:59 Weight 68.039 kg 12/13/23 06:00 12/13/23 06:00 Assessment and Plan Assessment: #1 symptoms of dizziness, nausea and chest pressure, acute coronary event has been ruled out #2 CAD with prior PCI and known 50 to 60% lesion in the left circumflex with normal IFR in April 2023 #3 hypertension #4 hyperlipidemia #5 COPD Plan: From cardiology's perspective we will resume home dose of isosorbide. An acute coronary event has been ruled out. Patient is stable for discharge home and follow-up with Dr. Fonseca in the office. [employer] note has been reviewed, I agree with a documented findings and plan of care. Patient was seen and examined.
[2023-12-13] MEDS: ISOSORBIDE MONONITRATE ER 30 MG TAB.ER.24H PO SCH (11:43)
[2023-12-13 12:21] VITALS: PULSE 72
[2023-12-13 14:26] VITALS: BP 97/60; TEMP 98.2
[2023-12-14] MEDS ORDERED: ASPIRIN 81 MG PO SCH (09:00)
== END 2023-12-13 16:00 | disposition home or self-care (01) ==
LOC: EC 13:04 → 6NMEDSUR 14:29
PROVIDERS: ADMIT Internal Medicine; ATTEND Internal Medicine
DX: R07.89 Other chest pain (principal); I25.2 Old myocardial infarction; I10 Essential (primary) hypertension; E78.5 Hyperlipidemia, unspecified; F10.20 Alcohol dependence, uncomplicated; Z99.81 Dependence on supplemental oxygen; Z95.5 Presence of coronary angioplasty implant and graft; Z86.16 Personal history of COVID-19; Z82.49 Family history of ischemic heart disease and other diseases of the circulatory system; Z79.899 Other long term (current) drug therapy; Z79.82 Long term (current) use of aspirin; Z79.51 Long term (current) use of inhaled steroids; Z87.891 Personal history of nicotine dependence
CPT/HCPCS: 96372; 99285; 36415; 94640 ×3; 93005 ×2; 85379; 83880; 80061; 80053; 80048; 83735; 84484; 85025 ×2; 85610; 85730; 71046; 71275; G0378 ×2; J1644; Q9967

== ENCOUNTER 2023-12-22 09:15 | Observation (INO) | payer MEDICARE ==
[2023-12-22 09:25] LABS: Glucose,Whole Blood 124 mg/dL (70-110)
[2023-12-22] MEDS: LORazepam 2 MG/ML INJ IV STA (09:40)
[2023-12-22] MEDS: SODIUM CHLORIDE 0.9% 1,000 ML IV ONE (09:42)
[2023-12-22 09:54] LABS: Basophils # (A) 0.1 k/uL (0-0.2); Basophils % (A) 1 %; Eosinophils # (A) 0.1 k/uL (0-0.7); Eosinophils % (A) 2 %; HCT 41.3 % (39.0-53.0); HGB 13.8 gm/dL (13.0-17.5); Lymphocytes # (A) 1.6 k/uL (1.0-4.8); Lymphocytes % (A) 25 %; MCH 31.3 pg (25.0-35.0); MCHC 33.3 g/dL (31.0-37.0); MCV 93.9 fL (80.0-100.0); Mean Platelet Volume 7.2; Monocytes # (A) 0.6 k/uL (0-1.0); Monocytes % (A) 9 %; Neutrophils # (A) 3.9 k/uL (1.3-7.7); Neutrophils % (A) 59 %; Platelet Count 281 k/uL (150-450); RDW 13.4 % (11.5-15.5); WBC 6.6 k/uL (3.8-10.6)
[2023-12-22 10:01] LABS: Lactic Acid, Venous 1.9 mmol/L (0.7-2.0)
[2023-12-22 10:03] LABS: ALT 26 U/L (4-49); AST 23 U/L (17-59); African American GFR (CKD) >90 (>60 ml/min/1.73 sqM); Albumin 3.9 g/dL (3.5-5.0); Alcohol <10 mg/dL; Alkaline Phosphatase 79 U/L (38-126); Anion Gap 9 mmol/L; Blood Urea Nitrogen 12 mg/dL (9-20); Calcium 8.8 mg/dL (8.4-10.2); Carbon Dioxide 22 mmol/L (22-30); Chloride 109 mmol/L (98-107); Glucose 119 mg/dL (74-99); Non-African American GFR(CKD) 88 (>60 ml/min/1.73 sqM); Potassium 4.3 mmol/L (3.5-5.1); Sodium 140 mmol/L (137-145); Total Bilirubin 0.6 mg/dL (0.2-1.3); Total Protein 6.4 g/dL (6.3-8.2)
[2023-12-22 10:05] LABS: INR 0.9 (<1.2); Partial Thromboplastin Time 24.1 sec (22.0-30.0); Prothrombin Time 10.4 sec (10.0-12.5)
--- NOTE | 2023-12-22 10:33 | XR ---
EXAMINATION TYPE: XR chest 1V DATE OF EXAM: 12/22/2023 10:23 AM COMPARISON: Chest radiographs 12/12/2023 TECHNIQUE: XR chest 1V Frontal view of the chest. CLINICAL INDICATION:Male, 63 years old with history of altered mental status; FINDINGS: Lungs/Pleura: There is no evidence of pleural effusion, focal consolidation, or pneumothorax. Pulmonary vascularity: Unremarkable. Heart/mediastinum: Cardiomediastinal silhouette is unremarkable. Musculoskeletal: No acute osseous pathology. IMPRESSION: No acute cardiopulmonary disease/process.
--- NOTE | 2023-12-22 10:34 | XR ---
EXAMINATION TYPE: XR pelvis AP view DATE OF EXAM: 12/22/2023 10:24 AM INDICATION: Patient age:Male; 63 years old; Reason for study: fall; [facility]. COMPARISON: CT abdomen and pelvis 11/09/2023 TECHNIQUE: The pelvis was examined in a single projection. FINDINGS: There is no evidence of fracture or dislocation. There is no soft tissue abnormality. No a bnormal calcifications are present. IMPRESSION: No acute osseous pathology.
--- NOTE | 2023-12-22 10:43 | CT ---
EXAMINATION TYPE: CT brain cspine wo con, CT facial bones wo con CT DLP: 1166.9 mGycm, Automated exposure control for dose reduction was used. DATE OF EXAM: 12/22/2023 10:21 AM COMPARISON: CT brain 07/02/2022 CLINICAL INDICATION:Male, 63 years old with history of Altered mental status; AMS TECHNIQUE: Brain: Multiple axial CT images of the brain were obtained without IV contrast. Cspine: Axial CT images from the skull base to the inferior aspect of T2 we obtained without intraven ous contrast. Coronal and sagittal reformatted images were also reviewed. Facial bones; axial CT images of the facial bones were obtained without contrast and soft tissue and bone windows. Coronal and sagittal reformatted images were also reviewed. FINDINGS: Brain: Extra-axial spaces: No abnormal extra-axial fluid collections. Ventricular system: Within normal limits Cerebral parenchyma: No acute intraparenchymal hemorrhage or mass effect. The pierre-white junction is well differentiated. Scattered hypoattenuating areas are seen within the periventricular and subcort ical white matter. Cerebellum: Unremarkable. Mass effect: No evidence of midline shift. Intracranial vasculature: Atherosclerotic calcifications of the intracranial vessels. Soft tissues: Normal. Calvarium/osseous structures: No depressed skull fracture. Paranasal sinuses and mastoid air cells: Mild scattered mucosal thickening and or secretions. Aplasia of the frontal sinuses. Visualized orbits: Orbital contents are intact. Cervical spine: Fracture: None. Osseous structures: Unremarkable Vertebral alignment: Within normal limits. Spinal canal/Neural Foramina: No evidence of significant spinal canal narrowing. Left C2-C3 facet lars nt arthropathy resulting in mild neural foraminal stenosis. Neck soft tissues: Prevertebral soft tissues are within normal limits. Other: The airway is patent. The lung apices are clear. Left apical pleural-parenchymal scarring. Par aseptal and centrilobular emphysematous changes in the bilateral apices. Bilateral carotid bulb calci fications. Facial Bones: There is no evidence of fracture, subluxation, dislocation, or significant soft tissue swelling. The orbital contents are unremarkable. The temporal-mandibular joints appear symmetric. Aplasia of the fr ontal sinuses. The mastoid air cells are clear. Mild scattered mucosal thickening of the remaining pa ranasal sinuses. IMPRESSION: 1. No acute intracranial process. 2. Nonspecific white matter changes, likely secondary to chronic small vessel ischemic disease. 3. No evidence of cervical spine fracture. 4. Mild left C2-C3 facet arthropathy. 5. No acute facial bone fracture.
[2023-12-22 10:44] LABS: Appearance,Urine Clear (Clear); Bilirubin,Urine Negative (Negative); Blood,Urine Negative (Negative); Color,Urine Yellow; Glucose,Urine (UA) Negative (Negative); Ketones,Urine Negative (Negative); Leukocyte Esterase,Urine Negative (Negative); Nitrite,Urine Negative (Negative); PH, Urine 5.5 (5.0-8.0); Protein,Urine Negative (Negative); Specific Gravity,Urine 1.017 (1.001-1.035); Urobilinogen,Urine <2.0 mg/dL (<2.0)
[2023-12-22 11:00] LABS: VBG PH 7.35 (7.31-7.41)
[2023-12-22] MEDS: IPRATROPIUM-ALBUTEROL 3 ML NEB INHALATION STA (11:01)
[2023-12-22 11:16] LABS: Amphetamine Screen,Urine Not Detected (NotDetected); Barbiturate Screen,Urine Not Detected (NotDetected); Benzodiazepines Screen,Urine Detected (NotDetected); Cocaine Screen,Urine Not Detected (NotDetected); Methadone Screen, Urine Not Detected (NotDetected); Opiate Screen,Urine Not Detected (NotDetected); Oxycodone Screen, Urine Not Detected (NotDetected); Phencyclidine Screen,Urine Not Detected (NotDetected); Tricyclic Antidepressant,Urine Not Detected (NotDetected); Urn Cannabinoid Scrn Not Detected (NotDetected)
[2023-12-22] MEDS ORDERED: NALOXONE 0.4 MG/ML 1 ML VIAL IV PRN (11:47)
--- NOTE | 2023-12-22 11:49 | ED ---
General Adult HPI - General Chief complaint: Altered Mental Status Stated complaint: HUYEN/fall Time Seen by Provider: 12/22/23 09:30 Source: patient, EMS, RN notes reviewed, old records reviewed Mode of arrival: EMS - History of Present Illness Initial comments: Patient is a 63-year-old male who presents emergency department for altered mental status, fall, HUYEN. Patient has a history of COPD, hypertension, hyperlipidemia. Apparently this morning, patient awoke around 6 or 7 and was more confused. But needed breathing treatment needed help getting up and walking. He fell multiple times. Did not lose consciousness. Has been acting abnormally. EMS was called and he was brought here for further evaluation. Has an abrasion over the right side of the face. Patient unable to provide any information. - Related Data Home Medications Medication Instructions Recorded Confirmed FLUoxetine HCL [PROzac] 40 mg PO DAILY 04/26/22 12/22/23 Isosorbide Mononitrate ER [Imdur] 90 mg PO DAILY 04/26/22 12/22/23 Nitroglycerin Sl Tabs [Nitrostat] 0.4 mg SL Q5M PRN 04/26/22 12/22/23 rOPINIRole HCL [Requip] 0.5 mg PO TID 04/26/22 12/22/23 Ezetimibe [Zetia] 10 mg PO DAILY 04/16/23 12/22/23 Ipratropium-Albuterol Nebulize 3 ml INHALATION RT-QID PRN 08/13/23 12/22/23 [Duoneb 0.5 mg-3 mg/3 ml Soln] Ipratropium/Albuter 20-100Mcg 1 puff INHALATION RT-QID 08/13/23 12/22/23 [Combivent Respimat 20-100Mcg Inhaler] Ranolazine [Ranexa] 1,000 mg PO BID 11/10/23 12/22/23 Tiotropium Br/Olodaterol HCl 2 puff INHALATION RT-DAILY 11/10/23 12/22/23 [Stiolto Respimat Inhal [place]] Atorvastatin [Lipitor] 80 mg PO DAILY 12/12/23 12/22/23 Furosemide [Lasix] 20 mg PO DAILY 12/12/23 12/22/23 Fluticasone/Vilanterol [Breo 1 puff INHALATION RT-DAILY 12/22/23 12/22/23 Ellipta 200-25 Mcg Inhaler] Previous Rx's Medication Instructions Recorded Aspirin 81 mg PO DAILY 30 Days #30 tab 05/09/23 Losartan [Cozaar] 25 mg PO DAILY #30 tab 11/10/23 Pantoprazole [Protonix] 40 mg PO BID 30 Days #60 tab 11/10/23 Sucralfate [Carafate] 1 gm PO AC-TID #90 tab 11/10/23 Budesonide [Pulmicort] 0.5 mg INHALATION RT-BID #60 ml 12/13/23 Allergies Allergy/AdvReac Type Severity Reaction Status Date / Time codeine Allergy Anaphylaxis Verified 12/22/23 10:43 peanut Allergy Migraine/Allergy Verified 12/22/23 10:43 testing Review of Systems ROS Statement: Those systems with pertinent positive or pertinent negative responses have been documented in the HPI. ROS Other: All systems not noted in ROS Statement are negative. Past Medical History Past Medical History: Chest Pain / Angina, COPD, CVA/TIA, GERD/Reflux, Hyp erlipidemia, Hypertension, Myocardial Infarction (MD), Osteoarthritis (OA), Pneumonia Additional Past Medical History / Comment(s): COVID April 2022 and December 2022, multiple MIs, TIA, peripheral vision loss of left eye, white mass on brain in MRI, wears o2 at home 3L at night prn, Last Myocardial Infarction Date:: 2020 History of Any Multi-Drug Resistant Organisms: None Reported Past Surgical History: Heart Catheterization With Stent Additional Past Surgical History / Comment(s): 2 cardiac stents Past Anesthesia/Blood Transfusion Reactions: No Reported Reaction Date of Last Stent Placement:: 2020 Past Psychological History: Anxiety Smoking Status: Former smoker Past Alcohol Use History: None Reported Past Drug Use History: None Reported - Past Family History Father Family Medical History: Myocardial Infarction (MD) Additional Family Medical History / Comment(s): from MD Brother(s) Family Medical History: Myocardial Infarction (MD) Additional Family Medical History / Comment(s): from MD General Exam - General Exam Comments Initial Comments: General: Appears in no acute distress. HEAD: Normal with no signs of head trauma. EYES: PERRLA, EOMI, conjunctiva normal, no discharge. Pupils are 2 mm and equal bilaterally. ENT: Hearing grossly intact, normal oropharynx. RESPIRATORY: Clear breath sounds bilaterally. No wheezes, rales, or rhonchi. C/V: Regular rate and rhythm. S1 and S2 auscultated, no edema, peripheral pulses 2+ and intact throughout ABD: Abd is soft, nontender, nondistended EXT: Normal range of motion, no obvious deformity SKIN: Abrasion over the right side of the face. NEURO: Alert but not oriented. No focal deficits. Able to move all 4 extremities. He is making abnormal noises like "whooping" sounds. Is following commands. No obvious focal deficits. GCS is 14-15. Course Vital Signs 12/22/23 12/22/23 12/22/23 09:20 10:00 10:32 Temperature 98.0 F 97.7 F 98.2 F Pulse Rate 83 76 85 Respiratory 16 16 16 Rate Blood Pressure 191/113 121/81 110/98 O2 Sat by Pulse 96 94 L 95 Oximetry 12/22/23 12/22/23 12/22/23 10:50 10:55 11:00 Temperature Pulse Rate 81 Respiratory 18 Rate Blood Pressure 102/74 O2 Sat by Pulse 91 L 96 97 Oximetry 12/22/23 12/22/23 12/22/23 11:02 11:09 11:40 Temperature Pulse Rate 86 80 86 Respiratory 20 Rate Blood Pressure 162/83 O2 Sat by Pulse 97 Oximetry Medical Decision Making - Medical Decision Making Was pt. sent in by a medical professional or institution ([facility], [facility], urgent care, hospital, or long-term...) When possible be specific @ -No Did you speak to anyone other than the patient for history (EMS, parent, family, police, friend...)? What history was obtained from this source @ -No Did you review nursing and triage notes (agree or disagree)? Why? @ -I reviewed and agree with nursing and triage notes Were old charts reviewed (outside hosp., previous admission, EMS record, old EKG, old radiological studies, urgent care reports/EKG's, long-term records)? Report findings @ -Previous EKG from November 2023 was reviewed and compared with 1 from today. No significant change. Differential Diagnosis (chest pain, altered mental status, abdominal pain women, abdominal pain men, vaginal bleeding, weakness, fever, dyspnea, syncope, headache, dizziness, GI bleed, back pain, seizure, CVA, palpatations, mental health, musculoskeletal)? @ -Differential Altered Mental Status: Hypoglycemia, DKA, hypercapnia, ETOH, overdose, CO poisoning, trauma, myxedema coma, HTN encephalopathy, infection, encephalitis, psychosis, intercranial hemorrhage, hepatic encephalopathy, meningitis, CVA, this is not meant to be an all-inclusive list EKG interpreted by me (3pts min.). @ -As above X-rays interpreted by me (1pt min.). @ -Chest x-ray reveals no obvious acute cardiopulmonary process. Pelvis x-ray reveals no obvious acute injury or process. CT interpreted by me (1pt min.). @ -CT brain, C-spine, facial bones negative for any obvious traumatic injuries. CT T and L-spine negative for any obvious traumatic injuries. U/S interpreted by me (1pt. min.). @ -None done What testing was considered but not performed or refused? (CT, X-rays, U/S, labs)? Why? @ -None What meds were considered but not given or refused? Why? @ -None Did you discuss the management of the patient with other professionals (professionals i.e. , PA, YARN EXAMINER, lab, RT, psych nurse, certified social workers in health care, tankage supervisor, teacher, agricultural technical officer, casework supervisor)? Give summary @ -Discussed with neurology on-call Dr. Dobbs who evaluated the patient at bedside and requested the lumbar and thoracic spine imaging. I spoke with Dr. Todd who accepted the admission. Was smoking cessation discussed for >3mins.? @ -No Was critical care preformed (if so, how long)? @ -No Were there social determinants of health that impacted care today? How? (Homelessness, low income, unemployed, alcoholism, drug addiction, transportation, low edu. Level, literacy, decrease access to med. care, retirement, rehab)? @ -No Was there de-escalation of care discussed even if they declined (Discuss DNR or withdrawal of care, Hospice)? DNR status @ -No What co-morbidities impacted this encounter? (DM, HTN, Smoking, COPD, CAD, Cancer, CVA, ARF, Chemo, Hep., AIDS, mental health diagnosis, sleep apnea, morbid obesity)? @ -None Was patient admitted / discharged? Hospital course, mention meds given and route, prescriptions, significant lab abnormalities, going to OR and other pertinent info. @ -Patient presents for altered mental status. No focal deficits other than the confusion. We will obtain CT imaging of the brain and spine in addition to altered mental status workup. Patient in agreement this plan. Vital signs within acceptable limits. Laboratory studies returned all within acceptable limits. Positive for benzos which is for masses I did provide him with a dose of Ativan. CT imaging of brain, spine, facial bones negative for any obvious traumatic injury. Chest and pelvis x-ray negative for any obvious injury. On reevaluation, patient's neuro exam is improved as he is less confused but I still want to admit him for his altered mentation he was in agreement this plan. I spoke with Dr. Dobbs of neurology who was in agreement the plan and evaluated patient at bedside. Requested a CT imaging of the lumbar and thoracic spine. I spoke with the admitting provider, Dr. Todd who accepted the admission. Undiagnosed new problem with uncertain prognosis? @ -No Drug Therapy requiring intensive monitoring for toxicity (Heparin, Nitro, Insulin, Cardizem)? @ -No Were any procedures done? @ -No Diagnosis/symptom? @ -Altered mental status, fall, facial abrasion Acute, or Chronic, or Acute on Chronic? @ -Acute Uncomplicated (without systemic symptoms) or Complicated (systemic symptoms)? @ -Complicated Side effects of treatment? @ -No Exacerbation, Progression, or Severe Exacerbation? @ -No Poses a threat to life or bodily function? How? (Chest pain, USA, MD, pneumonia, PE, COPD, DKA, ARF, appy, cholecystitis, CVA, Diverticulitis, Homicidal, Suicidal, threat to staff... and all critical care pts) @ -Possibly, yes - Lab Data Result diagrams: 12/22/23 09:38 12/22/23 09:38 Lab Results 12/22/23 12/22/23 12/22/23 Range/Units 09:23 09:38 09:38 WBC 6.6 (3.8-10.6) k/uL RBC 4.40 (4.30-5.90) m/uL Hgb 13.8 (13.0-17.5) gm/dL Hct 41.3 (39.0-53.0) % MCV 93.9 (80.0-100.0) fL MCH 31.3 (25.0-35.0) pg MCHC 33.3 (31.0-37.0) g/dL RDW 13.4 (11.5-15.5) % Plt Count 281 (150-450) k/uL MPV 7.2 Neutrophils % 59 % Lymphocytes % 25 % Monocytes % 9 % Eosinophils % 2 % Basophils % 1 % Neutrophils # 3.9 (1.3-7.7) k/uL Lymphocytes # 1.6 (1.0-4.8) k/uL Monocytes # 0.6 (0-1.0) k/uL Eosinophils # 0.1 (0-0.7) k/uL Basophils # 0.1 (0-0.2) k/uL PT 10.4 (10.0-12.5) sec INR 0.9 (<1.2) APTT 24.1 (22.0-30.0) sec VBG pH (7.31-7.41) VBG pCO2 (37-51) mmHg VBG HCO3 (24-28) mmol/L Sodium (137-145) mmol/L Potassium (3.5-5.1) mmol/L Chloride (98-107) mmol/L Carbon Dioxide (22-30) mmol/L Anion Gap mmol/L BUN (9-20) mg/dL Creatinine (0.66-1.25) mg/dL Est GFR (CKD-EPI)AfAm (>60 ml/min/1.73 sqM) Est GFR (CKD-EPI)NonAf (>60 ml/min/1.73 sqM) Glucose (74-99) mg/dL POC Glucose (mg/dL) 124 H (70-110) mg/dL POC Glu Billposting Supervisor ID Sajan Canales Plasma Lactic Acid [place] (0.7-2.0) mmol/L Calcium (8.4-10.2) mg/dL Total Bilirubin (0.2-1.3) mg/dL AST (17-59) U/L ALT (4-49) U/L Alkaline Phosphatase (38-126) U/L Ammonia (<30) umol/L Troponin I (0.000-0.034) ng/mL Total Protein (6.3-8.2) g/dL Albumin (3.5-5.0) g/dL Urine Color Urine Appearance (Clear) Urine pH (5.0-8.0) Ur Specific [place] (1.001-1.035) Urine Protein (Negative) Urine Glucose (UA) (Negative) Urine Ketones (Negative) Urine Blood (Negative) Urine Nitrite (Negative) Urine Bilirubin (Negative) Urine Urobilinogen (<2.0) mg/dL Ur Leukocyte Esterase (Negative) Urine Opiates Screen (NotDetected) Ur Oxycodone Screen (NotDetected) Urine Methadone Screen (NotDetected) Ur Barbiturates Screen (NotDetected) U Tricyclic Antidepress (NotDetected) Ur Phencyclidine Scrn (NotDetected) Ur Amphetamines Screen (NotDetected) U Methamphetamines Scrn (NotDetected) U Benzodiazepines Scrn (NotDetected) Urine Cocaine Screen (NotDetected) U Marijuana (THC) Screen (NotDetected) Serum Alcohol mg/dL Influenza Type A (PCR) (Not Detectd) Influenza Type B (PCR) (Not Detectd) RSV (PCR) (Not Detectd) SARS-CoV-2 (PCR) (Not Detectd) 12/22/23 12/22/23 12/22/23 Range/Units 09:38 09:38 09:38 WBC (3.8-10.6) k/uL RBC (4.30-5.90) m/uL Hgb (13.0-17.5) gm/dL Hct (39.0-53.0) % MCV (80.0-100.0) fL MCH (25.0-35.0) pg MCHC (31.0-37.0) g/dL RDW (11.5-15.5) % Plt Count (150-450) k/uL MPV Neutrophils % % Lymphocytes % % Monocytes % % Eosinophils % % Basophils % % Neutrophils # (1.3-7.7) k/uL Lymphocytes # (1.0-4.8) k/uL Monocytes # (0-1.0) k/uL Eosinophils # (0-0.7) k/uL Basophils # (0-0.2) k/uL PT (10.0-12.5) sec INR (<1.2) APTT (22.0-30.0) sec VBG pH (7.31-7.41) VBG pCO2 (37-51) mmHg VBG HCO3 (24-28) mmol/L Sodium 140 (137-145) mmol/L Potassium 4.3 (3.5-5.1) mmol/L Chloride 109 H (98-107) mmol/L Carbon Dioxide 22 (22-30) mmol/L Anion Gap 9 mmol/L BUN 12 (9-20) mg/dL Creatinine 0.92 (0.66-1.25) mg/dL Est GFR (CKD-EPI)AfAm >90 (>60 ml/min/1.73 sqM) Est GFR (CKD-EPI)NonAf 88 (>60 ml/min/1.73 sqM) Glucose 119 H (74-99) mg/dL POC Glucose (mg/dL) (70-110) mg/dL POC Glu Billposting Supervisor ID Plasma Lactic Acid K[place] 1.9 (0.7-2.0) mmol/L Calcium 8.8 (8.4-10.2) mg/dL Total Bilirubin 0.6 (0.2-1.3) mg/dL AST 23 (17-59) U/L ALT 26 (4-49) U/L Alkaline Phosphatase 79 (38-126) U/L Ammonia 12 (<30) umol/L Troponin I <0.012 (0.000-0.034) ng/mL Total Protein 6.4 (6.3-8.2) g/dL Albumin 3.9 (3.5-5.0) g/dL Urine Color Urine Appearance (Clear) Urine pH (5.0-8.0) Ur Specific [place] (1.001-1.035) Urine Protein (Negative) Urine Glucose (UA) (Negative) Urine Ketones (Negative) Urine Blood (Negative) Urine Nitrite (Negative) Urine Bilirubin (Negative) Urine Urobilinogen (<2.0) mg/dL Ur Leukocyte Esterase (Negative) Urine Opiates Screen (NotDetected) Ur Oxycodone Screen (NotDetected) Urine Methadone Screen (NotDetected) Ur Barbiturates Screen (NotDetected) U Tricyclic Antidepress (NotDetected) Ur Phencyclidine Scrn (NotDetected) Ur Amphetamines Screen (NotDetected) U Methamphetamines Scrn (NotDetected) U Benzodiazepines Scrn (NotDetected) Urine Cocaine Screen (NotDetected) U Marijuana (THC) Screen (NotDetected) Serum Alcohol <10 mg/dL Influenza Type A (PCR) (Not Detectd) Influenza Type B (PCR) (Not Detectd) RSV (PCR) (Not Detectd) SARS-CoV-2 (PCR) (Not Detectd) 12/22/23 12/22/23 12/22/23 Range/Units 09:44 09:44 09:44 WBC (3.8-10.6) k/uL RBC (4.30-5.90) m/uL Hgb (13.0-17.5) gm/dL Hct (39.0-53.0) % MCV (80.0-100.0) fL MCH (25.0-35.0) pg MCHC (31.0-37.0) g/dL RDW (11.5-15.5) % Plt Count (150-450) k/uL MPV Neutrophils % % Lymphocytes % % Monocytes % % Eosinophils % % Basophils % % Neutrophils # (1.3-7.7) k/uL Lymphocytes # (1.0-4.8) k/uL Monocytes # (0-1.0) k/uL Eosinophils # (0-0.7) k/uL Basophils # (0-0.2) k/uL PT (10.0-12.5) sec INR (<1.2) APTT (22.0-30.0) sec VBG pH 7.35 (7.31-7.41) VBG pCO2 45 (37-51) mmHg VBG HCO3 25 (24-28) mmol/L Sodium (137-145) mmol/L Potassium (3.5-5.1) mmol/L Chloride (98-107) mmol/L Carbon Dioxide (22-30) mmol/L Anion Gap mmol/L BUN (9-20) mg/dL Creatinine (0.66-1.25) mg/dL Est GFR (CKD-EPI)AfAm (>60 ml/min/1.73 sqM) Est GFR (CKD-EPI)NonAf (>60 ml/min/1.73 sqM) Glucose (74-99) mg/dL POC Glucose (mg/dL) (70-110) mg/dL POC Glu Billposting Supervisor ID Plasma Lactic Acid [place] (0.7-2.0) mmol/L Calcium (8.4-10.2) mg/dL Total Bilirubin (0.2-1.3) mg/dL AST (17-59) U/L ALT (4-49) U/L Alkaline Phosphatase (38-126) U/L Ammonia (<30) umol/L Troponin I (0.000-0.034) ng/mL Total Protein (6.3-8.2) g/dL Albumin (3.5-5.0) g/dL Urine Color Yellow Urine Appearance Clear (Clear) Urine pH 5.5 (5.0-8.0) Ur Specific [place] 1.017 (1.001-1.035) Urine Protein Negative (Negative) Urine Glucose (UA) Negative (Negative) Urine Ketones Negative (Negative) Urine Blood Negative (Negative) Urine Nitrite Negative (Negative) Urine Bilirubin Negative (Negative) Urine Urobilinogen <2.0 (<2.0) mg/dL Ur Leukocyte Esterase Negative (Negative) Urine Opiates Screen Not Detected (NotDetected) Ur Oxycodone Screen Not Detected (NotDetected) Urine Methadone Screen Not Detected (NotDetected) Ur Barbiturates Screen Not Detected (NotDetected) U Tricyclic Antidepress Not Detected (NotDetected) Ur Phencyclidine Scrn Not Detected (NotDetected) Ur Amphetamines Screen Not Detected (NotDetected) U Methamphetamines Scrn Not Detected (NotDetected) U Benzodiazepines Scrn Detected H (NotDetected) Urine Cocaine Screen Not Detected (NotDetected) U Marijuana (THC) Screen Not Detected (NotDetected) Serum Alcohol mg/dL Influenza Type A (PCR) Not Detected (Not Detectd) Influenza Type B (PCR) Not Detected (Not Detectd) RSV (PCR) Not Detected (Not Detectd) SARS-CoV-2 (PCR) Not Detected (Not Detectd) - EKG Data -: EKG Interpreted by Me EKG Comments: 12-lead Electrocardiogram Interpretation Note EKG was reviewed and interpreted by myself. 12-lead ECG performed at 0925 is interpreted by me as revealing normal sinus rhythm at a rate of 83 beats per minute. [place] is normal. [place] interval is 177 ms, QRS duration is 105 ms, QTc is 333 ms.. There were no ST or T wave abnormalities to suggest myocardial ischemia or injury. R wave progression across the precordium was satisfactory. By my interpretation this EKG is non-diagnostic for acute ischemia. Disposition Clinical Impression: AMS (altered mental status), Fall, Abrasion Disposition: ADMITTED IP TO THIS HOSP Condition: Stable Referrals: Yara Wong MD [Primary Care Provider] - 1-2 days Time of Disposition: 11:38
--- NOTE | 2023-12-22 12:21 | CT ---
EXAMINATION TYPE: CT thor lumbar spine wo con CT DLP: 1273.2 mGycm, Automated exposure control for dose reduction was used. DATE OF EXAM: 12/22/2023 12:05 PM CLINICAL INDICATION:Male, 63 years old with history of AMS; Fall COMPARISON: CTA chest 12/12/2023, CT abdomen and pelvis 11/09/2023 TECHNIQUE: Axial images of the thoracic and lumbar spine were obtained without contrast. Coronal and sagittal reformats were performed. CT Contrast: Contrast used: none. Oral contrast used: none. FINDINGS: Thoracic: The thoracic vertebral bodies have preserved heights and alignment. Intervertebral discs and osseou s structures have normal appearance. I do not see any evidence of extradural defects nor significant spinal canal narrowing at any thoraci c vertebral body level. Atherosclerotic calcification of the aorta. Moderate coronary arterial calcifications. Mildly enlarge d heart. Small hiatal hernia. [id number] centrilobular and paraseptal emphysematous changes. Lumbar: Alignment: There are 5 lumbar type vertebral bodies within normal alignment. Bone: No evidence of fracture is identified. Remote fracture to the right L1 transverse process with some sclerosis identified. Discs: Mild degenerative disc disease at L5-S1 with disc space narrowing, endplate sclerosis, and vac uum disc disease. T12-L1: No spinal canal or neural foraminal stenosis is identified. L1-L2: No spinal canal or neural foraminal stenosis is identified. L2-L3: No spinal canal or neural foraminal stenosis is identified. L3-L4: No spinal canal or neural foraminal stenosis is identified. L4-L5: Broad-based disc bulge without significant central canal or neural foraminal stenosis. L5-S1: Broad-based disc bulge without significant central canal stenosis. Bilateral facet arthropathy resulting in mild bilateral neuroforaminal stenosis. Other: Atherosclerotic calcification of the aorta and its branches. IMPRESSION: 1. No evidence of fracture of the thoracolumbar spine. 2. Mild degenerative disc disease at L5-S1 with bilateral facet arthropathy. 3. Mild to moderate COPD changes.
--- NOTE | 2023-12-22 15:13 | P.CNNES ---
History of Present Illness Consult date: 12/22/23 Requesting physician: Tom Sen Reason for Consult: ams History of Present Illness: This is a 63-year-old gentleman underlying history of hypertension, COPD on oxygen who presented emergency department because of 2 falls at home with some confusion. History is obtained from the patient's . Patient's stated that today in the morning around 8ish am seems to the patient was having difficulty getting up and felt not walk according to the and fell twice without loss of consciousness. stated his legs were weak. It seems that he had his head. Patient had episodes in the past unsteady gait. Patient does not have any history of seizure or strokes. No recent fevers. Patient is confused. He is on aspirin 81 mg daily Some of the Workup during this hospital visit consisted of: Patient is afebrile CBC with differential is unremarkable Initial POC glucose is 124 I reviewed the rest of the lab workup Ammonia level is 12 CT head and face. is reported as no acute intracranial process. Nonspecific white matter changes, likely secondary due to chronic small vessel ischemic disease. No Acute facial bone fracture. I personally reviewed CT of the head and I felt there is a questionable subacute changes over subcortical right frontal parietal region. CT cervical spine is reported as no evidence of cervical spine fracture. Mild left C2-C3 facet arthropathy. Review of Systems The positive and negative as per HPI. Past Medical History Past Medical History: Chest Pain / Angina, COPD, CVA/TIA, GERD/Reflux, Hyper lipidemia, Hypertension, Myocardial Infarction ([place]), Osteoarthritis ([place]), Pneumonia Additional Past Medical History / Comment(s): COVID April 2022 and December 2022, multiple MIs, TIA, peripheral vision loss of left eye, white mass on brain in MRI, wears o2 at home 3L at night prn, Last Myocardial Infarction Date:: 2020 History of Any Multi-Drug Resistant Organisms: None Reported Past Surgical History: Heart Catheterization With Stent Additional Past Surgical History / Comment(s): 2 cardiac stents Past Anesthesia/Blood Transfusion Reactions: No Reported Reaction Date of Last Stent Placement:: 2020 Past Psychological History: Anxiety Smoking Status: Former smoker Past Alcohol Use History: None Reported Past Drug Use History: None Reported - Past Family History Father Family Medical History: Myocardial Infarction ([place]) Additional Family Medical History / Comment(s): from [place] Brother(s) Family Medical History: Myocardial Infarction ([place]) Additional Family Medical History / Comment(s): from [place] Medications and Allergies Home Medications Medication Instructions Recorded Confirmed Type FLUoxetine HCL [PROzac] 40 mg PO DAILY 04/26/22 12/22/23 History Isosorbide Mononitrate ER [Imdur] 90 mg PO DAILY 04/26/22 12/22/23 History Nitroglycerin Sl Tabs [Nitrostat] 0.4 mg SL Q5M PRN 04/26/22 12/22/23 History rOPINIRole HCL [Requip] 0.5 mg PO TID 04/26/22 12/22/23 History Ezetimibe [Zetia] 10 mg PO DAILY 04/16/23 12/22/23 History Aspirin 81 mg PO DAILY 30 Days #30 tab 05/09/23 12/22/23 Rx Ipratropium-Albuterol Nebulize 3 ml INHALATION RT-QID PRN 08/13/23 12/22/23 History [Duoneb 0.5 mg-3 mg/3 ml Soln] Ipratropium/Albuter 20-100Mcg 1 puff INHALATION RT-QID 08/13/23 12/22/23 History [Combivent Respimat 20-100Mcg Inhaler] Losartan [Cozaar] 25 mg PO DAILY #30 tab 11/10/23 12/22/23 Rx Pantoprazole [Protonix] 40 mg PO BID 30 Days #60 tab 11/10/23 12/22/23 Rx Ranolazine [Ranexa] 1,000 mg PO BID 11/10/23 12/22/23 History Sucralfate [Carafate] 1 gm PO AC-TID #90 tab 11/10/23 12/22/23 Rx Tiotropium Br/Olodaterol HCl 2 puff INHALATION RT-DAILY 11/10/23 12/22/23 History [Stiolto Respimat Inhal [place]] Atorvastatin [Lipitor] 80 mg PO DAILY 12/12/23 12/22/23 History Furosemide [Lasix] 20 mg PO DAILY 12/12/23 12/22/23 History Budesonide [Pulmicort] 0.5 mg INHALATION RT-BID #60 ml 12/13/23 12/22/23 Rx Fluticasone/Vilanterol [Breo 1 puff INHALATION RT-DAILY 12/22/23 12/22/23 History Ellipta 200-25 Mcg Inhaler] Allergies Allergy/AdvReac Type Severity Reaction Status Date / Time codeine Allergy Anaphylaxis Verified 12/22/23 10:43 peanut Allergy Migraine/Allergy Verified 12/22/23 10:43 testing Physical Examination - Vital Signs Vital Signs: Vital Signs Temp Pulse Resp BP Pulse Ox 12/22/23 12:51 85 16 111/63 94 L 12/22/23 11:40 86 20 162/83 97 12/22/23 11:09 80 12/22/23 11:02 86 12/22/23 11:00 81 18 102/74 97 12/22/23 10:55 96 12/22/23 10:50 91 L 12/22/23 10:32 98.2 F 85 16 110/98 95 12/22/23 10:00 97.7 F 76 16 121/81 94 L 12/22/23 09:20 98.0 F 83 16 191/113 96 Intake and Output 12/21/23 12/22/23 12/22/23 22:59 06:59 14:59 Other: Weight 81.647 kg General: Lying in bed and is not in acute distress. HENT: Supple neck. Has bruise over the right outer periorbital region (from recent fall). Neuro: Limited. There is drowsy but is awake and will to voice. He is oriented to self and he stated the month is November. He was able to name his name correctly. He is able to name objects correctly such as pen and watch. He is following simple commands. No aphasia. The pupils are round equal reactive to light. Visual diana hard to assess because of cooperation. Extraocular movement intact. No facial weakness. No dysarthria. Tongue is midline and moves [id number] without any difficulty Motor: Strength in the uppers are 5 out of 5. In the lowers was somewhat limited because of his cooperation but was able to lift up above gravity and I felt the right was more than the left. Sensation and reflexes is unable to assess because of his cooperation Plantars are mute bilaterally. Results - Laboratory Findings CBC and BMP: 12/22/23 09:38 12/22/23 09:38 Abnormal Lab Findings: Abnormal Labs 12/22/23 12/22/23 12/22/23 09:23 09:38 09:44 Chloride 109 H Glucose 119 H POC Glucose (mg/dL) 124 H U Benzodiazepines Scrn Detected H Assessment and Plan Assessment: This is a 63-year-old gentleman who was at home and had to recent fall without loss of consciousness and was confused when he woke up today early in the morning around 8-tammy. He was having a hard time standing up and that his legs were weak. His normal state was 1:30 AM today. Two falls with confusion: Unknown exact etiology: Rule out stroke vs his legs were were due to lower back severe stenosis. History of underlying unsteady gait at baseline Per medical record it seems the patient has a history of TIA but per the patient never had a stroke or TIA in the past Multiple myocardial infarction History of coronary artery disease status post stent Underlying history of hypertension History of COPD on home oxygen Plan: Notified the ED physician to pursue with CT lumbar thoracic spine I will proceed with MRI of the brain carotid duplex and 2D echo I ordered TSH, vitamin B12, hemoglboin A1c. Ordered routine EEG Patient is on home dose of aspirin 81 mg daily and Lipitor 80 mg daily. Physical therpay and occupation therapy are consulted Will defer the rest of the medical management the primary and other specialist next Discussed with the patient's was at bedside as well as the ED physician Thank you for the consultation. Time with Patient: Greater than 30
[2023-12-22] MEDS: IPRATROPIUM-ALBUTEROL 3 ML NEB INHALATION SCH (15:29)
--- NOTE | 2023-12-22 16:03 | US ---
EXAMINATION TYPE: US carotid duplex BILAT DATE OF EXAM: 12/22/2023 COMPARISON: NONE CLINICAL INDICATION: Male, 63 years old with history of stroke; TECHNIQUE: Carotid duplex ultrasound examination. Indirect Doppler criteria was utilized. FINDINGS: EXAM MEASUREMENTS: RIGHT: Peak Systolic Velocity (PSV) cm/sec ----- Right CCA: 62.2 ----- Right ICA: 96.5 ----- Right ECA: 80.1 ICA/CCA ratio: 1.6 RIGHT: End Diastole cm/sec ----- Right CCA: 11.7 ----- Right ICA: 38.3 ----- Right ECA: 10.2 LEFT: Peak Systolic Velocity (PSV) cm/sec ----- Left CCA: 72.4 ----- Left ICA: 90.1 ----- Left ECA: 117.6 ICA/CCA ratio: 1.2 LEFT: End Diastole cm/sec ----- Left CCA: 22.1 ----- Left ICA: 39.6 ----- Left ECA: 12.9 VERTEBRALS (direction of flow): Right Vertebral: Antegrade Left Vertebral: Antegrade Rhythm: Normal No significant stenosis IMPRESSION: Less than 50% stenosis of the bilateral carotid bifurcations. Criteria for Assigning % of Stenosis / Diameter reduction (Estimation based on the indirect measurements of the internal carotid artery velocities (ICA PSV). 1. Normal (no stenosis)=ICA PSV < 125 cm/s: ratio < 2.0: ICA EDV<40 cm/s. 2. Less than 50% stenosis=ICA PSV < 125 cm/s: ratio < 2.0: ICA EDV<40 cm/s. 3. 50 to 69% stenosis=ICA PSV of 125 to 230 cm/s: ration 2.0 ? 4.0: ICA EDV 40-100 cm/s. 4. Greater than 70% stenosis to near occlusion= ICA PSV > 230 cm/s: ratio > 4.0: ICA EDV > 100 cm/s. 5. Near occlusion= ICA PSV velocities may be low or undetectable: variable ratio and ICA EDV. 6. Total occlusion=unable to detect flow.
[2023-12-22] MEDS: PANTOPRAZOLE 40 MG TABLET PO SCH (17:53)
[2023-12-22] MEDS ORDERED: BUDESONIDE 0.5 MG/2 ML NEBU INHALATION SCH (20:00)
[2023-12-22] MEDS: RANOLAZINE 500 MG TAB.ER.12H PO SCH (20:26)
--- NOTE | 2023-12-22 22:34 | EEG ---
ELECTROENCEPHALOGRAM REPORT CLINICAL HISTORY: This is a 63-year-old gentleman with altered mental status. The video EEG is obtained to evaluate for seizure epileptiform activity. RELEVANT MEDICATIONS: The patient is not on any antiepileptic drugs. EEG TYPE: This is a routine 21-channel EEG with video using the 10/20 electrode placement system. DESCRIPTION: Wakefulness is only obtained. During awake state, the posterior dominant rhythm consists of cco-mi-ghjwagea voltage of 6 to 7 hertz that is poorly modulated and poorly sustained. There is no physiological stage 2 sleep architecture. There is no focal slowing. There is myogenic artifact over the bilateral temporal region. Interictal and ictal is none. ACTIVATION PROCEDURE: Photic stimulation did not evoke a posterior driving response. There is no abnormality during the photic stimulation. Hyperventilation is not performed. CLINICAL INTERPRETATION: This is an abnormal routine EEG. The background slowing is suggestive of mild encephalopathy. There is no focal slowing, epileptiform discharge, or seizure on the EEG. Clinical correlation is recommended. CHASE / MANUELITO: [id number] / MTDD
--- NOTE | 2023-12-23 07:11 | CA ---
Transthoracic Echo Report Name: Sonu Garcia Age: 63 Gender: M : 1960 Exam Date: 12/22/2023 16:07 Exam Location: [facility] Ht (in): 69 Wt (lb): 180 Ordering Physician: Carter Dobbs MD Attending/Referring Phys: [employer] Sales Manager Caroline Redd RDCS Procedure CPT: Indications: stroke Cardiac Hx: Technical Quality: Fair Contrast 1: Agitated Saline Total Dose (mL): Contrast 2: Total Dose (mL): MEASUREMENTS (Male / Female) Normal Values 2D ECHO LV Diastolic Diameter PLAX 3.8 cm 4.2 - 5.9 / 3.9 - 5.3 cm LV Systolic Diameter PLAX 2.9 cm IVS Diastolic Thickness 1.2 cm 0.6 - 1.0 / 0.6 - 0.9 cm LVPW Diastolic Thickness 1.1 cm 0.6 - 1.0 / 0.6 - 0.9 cm LV Relative Wall Thickness 0.6 RV Internal Dim ED PLAX 2.6 cm LV Diastolic Volume MOD BP 44.9 cm??? 67 - 155 / 56 - 104 cm??? LV Systolic Volume MOD BP 17.3 cm??? 22 - 58 / 19 - 49 cm??? LV Ejection Fraction MOD BP 61.5 % >= 55 % LV Cardiac Index MOD BP 729.3 cm???/min???m??? LV Diastolic Volume MOD 4C 43.5 cm??? LV Systolic Volume MOD 4C 14.4 cm??? LV Ejection Fraction MOD 4C 67.0 % LV Cardiac Index MOD 4C 769.6 cm???/min???m??? LV Diastolic Length 4C 6.0 cm LV Systolic Length 4C 5.4 cm LV Diastolic Volume MOD 2C 43.3 cm??? LV Systolic Volume MOD 2C 20.2 cm??? LV Ejection Fraction MOD 2C 53.4 % LV Cardiac Index MOD 2C 611.1 cm???/min???m??? LV Diastolic Length 2C 6.5 cm LV Systolic Length 2C 5.7 cm LA Volume 39.1 cm??? 18 - 58 / 22 - 52 cm??? LA Volume Index 19.5 cm???/m??? 16 - 28 cm???/m??? M-MODE Aortic Root Diameter MM 2.7 cm LA Systolic Diameter MM 3.1 cm LA Ao Ratio MM 1.2 AV Cusp Separation MM 1.4 cm DOPPLER MV Area PHT 3.9 cm??? Mitral E Point Velocity 75.5 cm/s Mitral A Point Velocity 103.3 cm/s Mitral E to A Ratio 0.7 MV Deceleration Time 196.4 ms TR Peak Velocity 286.6 cm/s TR Peak Gradient 32.8 mmHg Right Atrial Pressure 5.0 mmHg Pulmonary Artery Systolic Pressu 37.8 mmHg Right Ventricular Systolic Press 37.8 mmHg FINDINGS Left Ventricle Left ventricular ejection fraction is estimated at 55-60%. Mildly increased septal wall thickness. No obvious regional wall motion abnormalities. Left ventricular cavity size normal. Left ventricular wall thickness normal. Right Ventricle Moderate right ventricular dilatation. Mild pulmonary hypertension.prominent. Moderator band in right ventricle (normal variant). Right Atrium Normal right atrial size. Negative agitated saline bubble study for right to left shunt. Left Atrium Normal left atrial size. No evidence for an atrial septal defect. Mitral Valve Structurally normal mitral valve. Trace mitral regurgitation. Aortic Valve Trileaflet aortic valve. No aortic stenosis. No aortic regurgitation. Tricuspid Valve Structurally normal tricuspid valve. Mild tricuspid regurgitation. Pulmonic Valve Pulmonic valve not well visualized. Pericardium Echo free space anterior to the right ventricle likely represents a fat pad. Aorta Normal size aortic root and proximal ascending aorta. CONCLUSIONS 1. Normal left ventricle size and systolic function 2. No evidence of shunting by contrast bubble study 3. Mild tricuspid regurgitation with mild pulmonary hypertension 4. Trace mitral regurgitation Previewed by: Dr. Nancy Lopez MD (Electronically Signed) Final Date: 23 December 2023 07:10
[2023-12-23] MEDS ORDERED: IPRATROPIUM 0.5 MG/2.5 ML NEBU INHALATION SCH (08:00)
[2023-12-23] MEDS: SYMBICORT 160-4.5 MCG INHALER INHALATION SCH (08:47)
[2023-12-23] MEDS: ISOSORBIDE MONONITRATE ER 30 MG TAB.ER.24H PO SCH (09:34)
[2023-12-23] MEDS: LOSARTAN 25 MG TAB PO SCH (09:35)
[2023-12-23] MEDS: ATORVASTATIN 80 MG TAB PO SCH (09:35)
[2023-12-23] MEDS: FLUoxetine HCL 20 MG CAP PO SCH (09:36)
[2023-12-23] MEDS: FUROSEMIDE 20 MG TAB PO SCH (09:36)
[2023-12-23] MEDS: ASPIRIN 81 MG PO SCH (09:36)
[2023-12-23] MEDS: EZETIMIBE 10 MG TAB PO SCH (09:36)
[2023-12-23 10:46] LABS: Basophils # (A) 0.04 X 10*3/uL (0.00-0.10); Basophils % (A) 0.7 %; Eosinophils % (A) 1.7 %; HCT 34.7 % (39.6-50.0); HGB 12.1 g/dL (13.0-17.0); Lymphocytes # (A) 1.34 X 10*3/uL (0.90-5.00); Lymphocytes % (A) 22.8 %; MCH 31.5 pg (27.0-32.0); MCHC 34.9 g/dL (32.0-37.0); MCV 90.4 FL (80.0-97.0); Mean Platelet Volume 9.1 FL (9.5-12.2); Monocytes # (A) 0.67 X 10*3/uL (0.20-1.00); Monocytes % (A) 11.4 %; NRBC Per 100 WBC 0 X 10*3/uL (0.00-0.01); Neutrophils % (A) 63.1 %; Platelet Count 231 X 10*3/uL (140-440); RBC 3.84 X 10*6/uL (4.40-5.60); WBC 5.87 X 10*3/uL (4.50-10.00)
[2023-12-23 11:30] LABS: ALT 23 U/L (10-49); AST 20 U/L (14-35); Albumin 3.7 g/dL (3.8-4.9); Albumin/Globulin Ratio 1.95 Ratio (1.60-3.17); Alkaline Phosphatase 66 U/L (41-126); BUN/Creat Ratio 12.09 Ratio (12.00-20.00); Blood Urea Nitrogen 13.3 mg/dL (9.0-27.0); Calcium 8.5 mg/dL (8.7-10.3); Carbon Dioxide 23.4 mmol/L (21.6-31.8); Chloride 105 mmol/L (96-109); Globulin 1.9 g/dL (1.6-3.3); Glucose 95 mg/dL (70-110); Potassium 4.2 mmol/L (3.5-5.5); Sodium 139 mmol/L (135-145); Total Bilirubin 0.5 mg/dL (0.3-1.2); Total Protein 5.6 g/dL (6.2-8.2)
[2023-12-23] MEDS: HEPARIN SODIUM,PORCINE 5,000 UNIT/ML 1 ML VIAL SQ SCH (13:41)
--- NOTE | 2023-12-23 14:16 | HP ---
HISTORY AND PHYSICAL CHIEF COMPLAINT: Change in mental status, fall, and weakness. HISTORY OF PRESENT ILLNESS: This is a 63-year-old gentleman with a past medical history of multiple medical problems including COPD, history of TIA, apparently had a fall at home. The patient also confused and the patient is severely dizzy. The patient is generally weak and the patient was taken to [facility]. Multiple evaluations have been done. MRI has been ordered by Neurology. The patient was also admitted with chest pain recently. There is no history of any fever, rigors, or chills at this time. I have reviewed multiple testings done extensively. The patient's hemoglobin is 12.1, otherwise benzodiazepines are positive, COVID-19 is negative. PAST MEDICAL HISTORY: Reviewed include COPD, CVA, TIA, hypertension, hyperlipidemia, rest of the history and chart is also reviewed. HOME MEDICATIONS: Reviewed include Spiriva, dose and rest of medications reviewed. ALLERGIES: Codeine and peanuts. FAMILY HISTORY: History of myocardial infarction in the family. SOCIAL HISTORY: Remote history of smoking. REVIEW OF SYSTEMS: A 14-point review is negative except as mentioned earlier. PHYSICAL EXAMINATION: VITAL SIGNS: Pulse is 84, blood pressure 131/72, respirations 17. HEENT: Conjunctivae normal. Oral mucosa is dry. NECK: No jugular venous distention. CARDIOVASCULAR: S1, S2. RESPIRATIONS: A few scattered rhonchi and crackles, expiratory wheezing. ABDOMEN: Soft, nontender. LEGS: No edema, no swelling. NERVOUS SYSTEM: Diffusely weak. No focal deficits. SKIN: No ulcer, rash, bleeding. JOINTS: No active deforming arthropathy. LABORATORY DATA: Reviewed. ASSESSMENT: 1. Fall and change in mental status, rule out cerebral concussion. 2. Rule out acute stroke. 3. Dizziness for evaluation. 4. Chronic obstructive pulmonary disease. 5. GERD. 6. Hypertension. 7. Hyperlipidemia. 8. History of coronary artery disease. 9. History of COVID in April 2022 and April 2023. 10.Chronic hypoxic respiratory failure. RECOMMENDATIONS AND DISCUSSION: This 63-year-old gentleman presented with multiple complex medical issues. At this time, I recommended to continue current neuro checks. Continue the antiplatelet agents. Neuro was symptomatic treatment, neurovascular workup, and 2D echo with Doppler was done which showed no acute abnormality. Neurology has ordered MRI. We will continue to monitor MRI. Some of the symptoms could be due to long COVID or TIA or stroke. The overall prognosis remains extremely guarded. Further recommendations to follow. I will also recommend a sedimentation rate and CRP also. CHASE / RADHAN: [id number] / MTDCherie
[2023-12-23] MEDS: MECLIZINE 12.5 MG TAB PO SCH (15:53)
--- NOTE | 2023-12-23 16:35 | P.PN ---
Subjective Progress Note Date: 12/23/23 Will follow-up with the patient and he feels about the same. No further falls. Brain MRI's. Objective - Vital Signs Vital signs: Vital Signs Temp 98 F 12/23/23 14:26 Pulse 82 12/23/23 16:23 Resp 18 12/23/23 14:10 BP 111/66 12/23/23 14:10 Pulse Ox 97 12/23/23 08:51 FiO2 Intake & Output 12/22/23 12/23/23 12/23/23 18:59 06:59 18:59 Intake Total 118 0 Output Total 400 Balance 118 -400 Weight 81.647 kg Intake: Oral 118 0 Output: Urine 400 Other: Voiding Method Toilet Toilet # Voids 1 3 - Exam General: Lying in bed and is not in acute distress. HENT: Supple neck. Has bruise over the right outer periorbital region (from recent fall). Neuro: Is awake, alert, oriented to self, place and time. He is following simple commands. No aphasia. The pupils are round equal reactive to light. Visual diana hard to assess because of cooperation. Extraocular movement intact. No facial weakness. No dysarthria. Tongue is midline and moves [id number] without any difficulty Motor: Strength in the uppers are 5 out of 5. In the lowers was somewhat limited because of his cooperation but was able to lift up above gravity. Sensation and reflexes is unable to assess because of his cooperation Plantars are mute bilaterally. Some of the Workup during this hospital visit consisted of: Patient is afebrile CBC with differential is unremarkable Ammonia level is 12 Vitamin B12: 339 TSH: 0.657 HbA1c: 5.7 CT head and face. is reported as no acute intracranial process. Nonspecific white matter changes, likely secondary due to chronic small vessel ischemic disease. No Acute facial bone fracture. I personally reviewed CT of the head and I felt there is a questionable subacute changes over subcortical right fron amanda parietal region. CT cervical spine is reported as no evidence of cervical spine fracture. Mild left C2-C3 facet arthropathy. Thoracic and lumbar is reported as no evidence of fracture of thoracic lumbar spine. Mild degenerative disc disease at L5-S1 with bilateral facet arthropathy. Routine EEG: Is abnormal. The background slowing is suggestive of mild encephalopathy. There is no focal slowing, epileptiform discharges or seizure on the EEG. Carotid duplex is less than 50% stenosis bilateral carotid bifurcation 2D echo: Echo size and soft function. No evidence of shunting by contrast bubble study. Mild tricuspid regurgitation with mild pulmonary hypertension. Trace mitral regurgitation - Labs CBC & Chem 7: 12/23/23 06:38 12/23/23 06:38 Labs: Abnormal Lab Results - Last 24 Hours (Table) 12/23/23 12/23/23 12/23/23 Range/Units 06:38 06:38 14:25 RBC 3.84 L (4.40-5.60) X 10*6/uL Hgb 12.1 L (13.0-17.0) g/dL Hct 34.7 L (39.6-50.0) % MPV 9.1 L (9.5-12.2) FL D-Dimer 0.83 H (<0.60) mg/L FEU Calcium 8.5 L (8.7-10.3) mg/dL Total Protein 5.6 L (6.2-8.2) g/dL Albumin 3.7 L (3.8-4.9) g/dL Assessment and Plan Assessment: This is a 63-year-old gentleman who was at home and had to recent fall without loss of consciousness and was confused when he woke up today early in the morning around 8-tammy. He was having a hard time standing up and that his legs were weak. His normal state was 1:30 AM today. Two falls with confusion: Unknown exact etiology: Rule out stroke vs due to lower back severe stenosis. History of underlying unsteady gait at baseline Per medical record it seems the patient has a history of TIA but per the patient never had a stroke or TIA in the past Multiple myocardial infarction History of coronary artery disease status post stent Underlying history of hypertension History of COPD on home oxygen Plan: Pending MRI Brain and lumbar. Patient is on home dose of aspirin 81 mg daily and Lipitor 80 mg daily. Physical therapy and occupation therapy are consulted Will defer the rest of the medical management the primary and other specialist next Discussed with the patient and his who is at bedside. Time with Patient: Less than 30
[2023-12-23] MEDS: SUCRALFATE 1 GM TAB PO SCH (17:34)
--- NOTE | 2023-12-23 20:15 | MR ---
EXAMINATION TYPE: MR brain wo/w con DATE OF EXAM: 12/23/2023 COMPARISON: 05/12/2022 HISTORY: 63-year-old male Confusion TECHNIQUE: Multiplanar, multisequence images of the brain and brainstem were acquired before and aft er administration of 8 mL IV Gadavist. Diffusion weighted imaging is performed. FINDINGS: No evidence for acute infarction, hemorrhage, mass, mass effect, midline shift, herniation, effacemen t of basal cisterns, or extra-axial fluid collection. There is mild generalized supratentorial volume loss. Ventricles are normal caliber. Major intracranial flow voids are intact. T2/FLAIR weighted sequences show severe patchy and scattered bright signal change especially along th e deep white matter and periventricular regions but also scattered in the subcortical regions. Patchy increased signal in the bilateral paramedian uriel as well. Midline structures demonstrate normal morphology. The craniocervical junction is normal. Post contrast images demonstrate no evidence of pathologic enhancement. Dural venous sinuses are pat ent. Rightward nasal septal deviation. Moderate mucosal thickening ethmoid air cells. Globes are intact. IMPRESSION: 1. Similar mild cerebral atrophy and similar moderate to severe burden of chronic small vessel ischem ic disease as compared to 2021. 2. No acute intracranial abnormality seen. 3. Moderate chronic ethmoid sinus disease.
[2023-12-24] MEDS: ACETAMINOPHEN TAB 325 MG TAB PO PRN (05:59)
[2023-12-24 10:56] LABS: Basophils # (A) 0.03 X 10*3/uL (0.00-0.10); Basophils % (A) 0.6 %; Eosinophils # (A) 0.08 X 10*3/uL (0.04-0.35); Eosinophils % (A) 1.7 %; HCT 35.6 % (39.6-50.0); HGB 12.2 g/dL (13.0-17.0); Lymphocytes # (A) 1.13 X 10*3/uL (0.90-5.00); Lymphocytes % (A) 24.4 %; MCH 31.2 pg (27.0-32.0); MCHC 34.3 g/dL (32.0-37.0); Mean Platelet Volume 9.2 FL (9.5-12.2); Monocytes # (A) 0.58 X 10*3/uL (0.20-1.00); Monocytes % (A) 12.5 %; NRBC Per 100 WBC 0 X 10*3/uL (0.00-0.01); Neutrophils % (A) 60.6 %; Platelet Count 254 X 10*3/uL (140-440); RBC 3.91 X 10*6/uL (4.40-5.60); RDW 13.1 % (11.5-14.5); WBC 4.63 X 10*3/uL (4.50-10.00)
[2023-12-24 11:08] LABS: BUN/Creat Ratio 12.45 Ratio (12.00-20.00); Blood Urea Nitrogen 13.7 mg/dL (9.0-27.0); Calcium 9.3 mg/dL (8.7-10.3); Carbon Dioxide 25.7 mmol/L (21.6-31.8); Chloride 102 mmol/L (96-109); Glucose 151 mg/dL (70-110); Potassium 3.9 mmol/L (3.5-5.5); Sodium 139 mmol/L (135-145)
[2023-12-24] MEDS: MULTIVITAMINS, THERA 1 EACH TAB PO SCH (13:25)
[2023-12-24] MEDS: FOLIC ACID 1 MG TAB PO SCH (13:25)
[2023-12-24] MEDS: THIAMINE 100 MG TAB PO SCH (13:25)
--- NOTE | 2023-12-24 15:02 | P.PN ---
Subjective Progress Note Date: 12/24/23 I am following-up with patient and he feels he is doing better. It seems yesterday, he only had MRI Brain and not Lumbar since no availability. Objective - Vital Signs Vital signs: Vital Signs Temp 97.7 F 12/24/23 07:00 Pulse 76 12/24/23 12:11 Resp 17 12/24/23 07:00 BP 139/77 12/24/23 07:00 Pulse Ox 98 12/24/23 09:04 FiO2 Intake & Output 12/23/23 12/24/23 12/24/23 18:59 06:59 18:59 Intake Total 0 Output Total 400 Balance -400 Intake: Oral 0 Output: Urine 400 Other: Voiding Method Toilet Toilet # Voids 3 1 - Exam General: Lying in bed and is not in acute distress. HENT: Supple neck. Has bruise over the right outer periorbital region (from recent fall). Neuro: Is awake, alert, oriented to self, place and time. He is following simple commands. No aphasia. The pupils are round equal reactive to light. Visual diana hard to assess because of cooperation. Extraocular movement intact. No facial weakness. No dysarthria. Tongue is midline and moves [id number] without any difficulty Motor: Strength in the uppers are 5 out of 5. In the lowers able to lift up above gravity symmetrically. Sensation and reflexes is unable to assess because of his cooperation Plantars are mute bilaterally. Some of the Workup during this hospital visit consisted of: Patient is afebrile CBC with differential is unremarkable Ammonia level is 12 Vitamin B12: 339 TSH: 0.657 HbA1c: 5.7 CT head and face. is reported as no acute intracranial process. Nonspecific white matter changes, likely secondary due to chronic small vessel ischemic disease. No Acute facial bone fracture. I personally reviewed CT of the head and I felt there is a questionable subacute changes over subcortical right frontal parietal region. CT cervical spine is reported as no evidence of cervical spine fracture. Mild left C2-C3 facet arthropathy. Thoracic and lumbar is reported as no evidence of fracture of thoracic lumbar spine. Mild degenerative disc disease at L5-S1 with bilateral facet arthropathy. Routine EEG: Is abnormal. The background slowing is suggestive of mild encephalopathy. There is no focal slowing, epileptiform discharges or seizure on the EEG. Carotid duplex is less than 50% stenosis bilateral carotid bifurcation 2D echo: Echo size and soft function. No evidence of shunting by contrast bubble study. Mild tricuspid regurgitation with mild pulmonary hypertension. Trace mitral regurgitation MRI Brain: Similar mild cerebral atrophy and similar moderate to severe burden of chronic small vessel ischemic disease as compared to 2021. No acute intracranial abnormality seen. Moderate chronic ethmoid sinus disease. I personally reviewed the CT and I agree there is no acute intracranial process. The patient does have moderate to severe chronic small vessel disease. - Labs CBC & Chem 7: 12/24/23 05:34 12/24/23 05:34 Labs: Abnormal Lab Results - Last 24 Hours (Table) 12/23/23 12/23/23 12/24/23 Range/Units 06:38 14:25 05:34 RBC 3.91 L (4.40-5.60) X 10*6/uL Hgb 12.2 L (13.0-17.0) g/dL Hct 35.6 L (39.6-50.0) % MPV 9.2 L (9.5-12.2) FL D-Dimer 0.83 H (<0.60) mg/L FEU Glucose (70-110) mg/dL C-Reactive Protein 0.90 H (0.00-0.80) mg/dL 12/24/23 Range/Units 05:34 RBC (4.40-5.60) X 10*6/uL Hgb (13.0-17.0) g/dL Hct (39.6-50.0) % MPV (9.5-12.2) FL D-Dimer (<0.60) mg/L FEU Glucose 151 H (70-110) mg/dL C-Reactive Protein (0.00-0.80) mg/dL Assessment and Plan Assessment: This is a 63-year-old gentleman who was at home and had to recent fall without loss of consciousness and was confused when he woke up today early in the morning around 8-tammy. He was having a hard time standing up and that his legs were weak. His normal state was 1:30 AM today. Two falls with confusion: Unknown exact etiology: Rule out stroke vs due to lower back severe stenosis. History of underlying unsteady gait at baseline Per medical record it seems the patient has a history of TIA but per the patient never had a stroke or TIA in the past Multiple myocardial infarction History of coronary artery disease status post stent Underlying history of hypertension History of COPD on home oxygen Plan: Pending MRI lumbar. Patient is on home dose of aspirin 81 mg daily and Lipitor 80 mg daily. Physical therapy and occupation therapy are consulted Will defer the rest of the medical management the primary and other specialist next Discussed with the patient and primary team. Time with Patient: Less than 30
[2023-12-24] MEDS: ONDANSETRON 4 MG/2 ML VIAL IVP PRN (20:44)
--- NOTE | 2023-12-25 00:22 | PN ---
PROGRESS NOTE DATE OF SERVICE: 12/24/2023 SUBJECTIVE: This 63-year-old gentleman who was admitted with change in mental status, fall, and weakness. He is being closely monitored at this time. Neurology following the patient closely. The patient is complaining of some dizziness. A brain MRI showed no acute abnormality. PHYSICAL EXAMINATION: VITAL SIGNS: Pulse is 82, blood pressure 130/70, and respirations 17. CHEST: Clear to auscultation. CARDIOVASCULAR: S1 and S2. ABDOMEN: Soft. NERVOUS SYSTEM: Diffusely weak. LABORATORY DATA: D-dimer is 0.83, hemoglobin 12.2. ASSESSMENT: 1. Fall and change in mental status, rule out cerebral concussion. 2. No acute stroke on MRI. 3. Dizziness for evaluation. 4. Chronic obstructive pulmonary disease. 5. Gastroesophageal reflux disease. 6. Hypertension. 7. Hyperlipidemia. 8. History of COVID. 9. Multiple complex medical issues. RECOMMENDATIONS: Recommend to continue current management and continue symptomatic treatment. Otherwise closely followup with Neurology. MRI of the lumbar spine was ordered, repeat labs, PT/OT evaluation. Prognosis guarded. Further recommendations to follow. MMODL / IJN: [id number] /
[2023-12-25] MEDS: IPRATROPIUM-ALBUTEROL 3 ML NEB INHALATION PRN (05:55)
[2023-12-25 08:40] LABS: Basophils # (A) 0.04 X 10*3/uL (0.00-0.10); Basophils % (A) 0.7 %; Eosinophils % (A) 1.8 %; HCT 37.3 % (39.6-50.0); HGB 12.9 g/dL (13.0-17.0); Lymphocytes # (A) 1.36 X 10*3/uL (0.90-5.00); Lymphocytes % (A) 24.5 %; MCH 31.9 pg (27.0-32.0); MCHC 34.6 g/dL (32.0-37.0); MCV 92.1 FL (80.0-97.0); Mean Platelet Volume 9.3 FL (9.5-12.2); Monocytes # (A) 0.64 X 10*3/uL (0.20-1.00); Monocytes % (A) 11.5 %; NRBC Per 100 WBC 0 X 10*3/uL (0.00-0.01); Neutrophils % (A) 61.3 %; Platelet Count 270 X 10*3/uL (140-440); RBC 4.05 X 10*6/uL (4.40-5.60); RDW 12.9 % (11.5-14.5); WBC 5.55 X 10*3/uL (4.50-10.00)
[2023-12-25 08:58] LABS: BUN/Creat Ratio 10.83 Ratio (12.00-20.00); Calcium 8.9 mg/dL (8.7-10.3); Carbon Dioxide 26.9 mmol/L (21.6-31.8); Chloride 104 mmol/L (96-109); Glucose 125 mg/dL (70-110); Potassium 4.1 mmol/L (3.5-5.5); Sodium 140 mmol/L (135-145)
--- NOTE | 2023-12-25 14:29 | MR ---
EXAMINATION TYPE: MR lumbar spine wo con DATE OF EXAM: 12/25/2023 6:58 AM CLINICAL INDICATION:Male, 63 years old with history of recurrent falls with unsteady gait, Recurrent falls, unsteady gait COMPARISON: 12/22/2023 TECHNIQUE: Multi planar, multi sequence imaging was performed utilizing: T1-weighted, T2-weighted, a nd turbo inversion recovery imaging of the lumbar spine. IV Contrast: (None if empty) FINDINGS: Alignment: The lumbar vertebral bodies have preserved heights and alignment. Cord: The conus medullaris and the distal spinal cord appear unremarkable with regards to their signa l intensity and morphology. Bones/Discs: Multilevel disc degeneration changes with osteophyte formation, disc space narrowing, Sc hmorl's nodes, and facet joint arthropathy. Intervertebral disc signal is maintained. No abnormal in version recovery signal to suggest bony edema. T12-L1: No evidence of significant spinal canal stenosis or neural foraminal stenosis. L1-L2: No evidence of significant spinal canal stenosis or neural foraminal stenosis. L2-L3: No evidence of significant spinal canal stenosis or neural foraminal stenosis. L3-L4: Disc bulge and facet joint arthropathy result in mild spinal canal and mild bilateral neural f oraminal stenosis. L4-L5: Disc bulge and facet joint arthropathy result in mild spinal canal and mild bilateral neural f oraminal stenosis. Trace bilateral facet joint effusions. L5-S1: The disc has a rounded posterior morphology without significant spinal canal stenosis. Facet j oint arthropathy with moderate bilateral neural foraminal stenosis. No significant spinal canal or neural foraminal stenosis in the remainder of the visualized levels. Other findings: None. IMPRESSION: 1. No definitive evidence of disc herniation or significant spinal canal stenosis. 2. Mild disc degeneration with associated osteoarthritic changes. No foraminal stenosis worse at L5- S1 with bilateral moderate
--- NOTE | 2023-12-25 15:13 | P.PN ---
Subjective Progress Note Date: 12/25/23 I am following up with the patient and he stated he is feeling better much better compared to his initial presentation. She was able to give me more information and he stated that he was very dizzy and just fell. He feels dizziness mostly with exertion but has been improving during this presentation. Denies of any focal weakness. Still pending MRI lumbar spine. Objective - Vital Signs Vital signs: Vital Signs Temp 97.7 F 12/25/23 07:57 Pulse 80 12/25/23 12:27 Resp 18 12/25/23 07:57 BP 137/80 12/25/23 07:57 Pulse Ox 96 12/25/23 09:16 FiO2 Intake & Output 12/24/23 12/25/23 12/25/23 18:59 06:59 18:59 Intake Total 540 Balance 540 Intake: Oral 540 Other: Voiding Method Toilet # Voids 1 2 - Exam General: Sitting in a recliner chair and is not in acute distress. HENT: Supple neck. Neuro: Is awake, alert, oriented to self, place and time. He is following simple commands. No aphasia. The pupils are round equal reactive to light. Visual diana hard to assess because of cooperation. Extraocular movement intact. No facial weakness. No dysarthria. Tongue is midline and moves [id number] without any difficulty Motor: Strength in the uppers are 5 out of 5. In the lowers able to lift up above gravity symmetrically. Plantars are mute bilaterally. Some of the Workup during this hospital visit consisted of: Patient is afebrile Orthostatic most recent yesterday at night: Supine 133/85 with HR 84, sitting 129/81 with heart rate 87 and standing 134/79 with heart rate 96. CBC with differential is unremarkable ESR: 12 Ammonia level is 12 Vitamin B12: 339 TSH: 0.657 HbA1c: 5.7 CT head and face. is reported as no acute intracranial process. Nonspecific white matter changes, likely secondary due to chronic small vessel ischemic disease. No Acute facial bone fracture. I personally reviewed CT of the head and I felt there is a questionable subacute changes over subcortical right frontal parietal region. CT cervical spine is reported as no evidence of cervical spine fracture. Mild left C2-C3 facet arthropathy. Thoracic and lumbar is reported as no evidence of fracture of thoracic lumbar spine. Mild degenerative disc disease at L5-S1 with bilateral facet arthropathy. Routine EEG: Is abnormal. The background slowing is suggestive of mild encephalopathy. There is no focal slowing, epileptiform discharges or seizure on the EEG. Carotid duplex is less than 50% stenosis bilateral carotid bifurcation 2D echo: Echo size and soft function. No evidence of shunting by contrast bubble study. Mild tricuspid regurgitation with mild pulmonary hypertension. Trace mitral regurgitation MRI Brain: Similar mild cerebral atrophy and similar moderate to severe burden of chronic small vessel ischemic disease as compared to 2021. No acute intracranial abnormality seen. Moderate chronic ethmoid sinus disease. I personally reviewed the CT and I agree there is no acute intracranial process. The patient does have moderate to severe chronic small vessel disease. - Labs CBC & Chem 7: 12/25/23 05:52 12/25/23 05:52 Labs: Abnormal Lab Results - Last 24 Hours (Table) 12/25/23 12/25/23 Range/Units 05:52 05:52 RBC 4.05 L (4.40-5.60) X 10*6/uL Hgb 12.9 L (13.0-17.0) g/dL Hct 37.3 L (39.6-50.0) % MPV 9.3 L (9.5-12.2) FL BUN/Creatinine Ratio 10.83 L (12.00-20.00) Ratio Glucose 125 H (70-110) mg/dL Assessment and Plan Assessment: This is a 63-year-old gentleman who was at home and had to recent fall without loss of consciousness and was confused when he woke up today early in the morning around 8-tammy. He was having a hard time standing up and that his legs were weak. His normal state was 1:30 AM today. The patient clarified that at home he was very dizzy at home and then when he stood up he fell. He feels dizzy with movement but is improving Two falls with confusion seems due to peripheral vertigo. MRI Brain is negative for acute/subcute process. Orthostatic are negative. History of underlying unsteady gait at baseline Per medical record it seems the patient has a history of TIA but per the patient never had a stroke or TIA in the past Multiple myocardial infarction History of coronary artery disease status post stent Underlying history of hypertension History of COPD on home oxygen Plan: Pending MRI lumbar. Patient is on home dose of aspirin 81 mg daily and Lipitor 80 mg daily. Physical therapy and occupation therapy are consulted Patient is on Meclizine 12.5mg tid and I changed to qid for total of 7 days and after that PRN. Consider event monitor for 30 days. If patient continues to have dizziness, recommend to follow-up with ENT as outpatient and consider vestibular rehab therapy. Will defer the rest of the medical management the primary and other specialist Upon discharge, recommend the patient to follow-up with neurologist as outpatient within 2 weeks. Discussed with the patient and his nurse. Time with Patient: Less than 30
[2023-12-25] MEDS: MECLIZINE 12.5 MG TAB PO SCH (17:50)
[2023-12-26 12:33] VITALS: BP 132/79; RESP 18; TEMP 97.6
[2023-12-26 15:31] VITALS: PULSE 72
--- NOTE | 2023-12-26 15:34 | P.PN ---
Subjective Progress Note Date: 12/26/23 I am following-up with patient and he feels he is doing much better. He states his nasal oxygen was off at home overnight since by mistake and unsure if hypoxia could have lead to his symptoms. Objective - Vital Signs Vital signs: Vital Signs Temp 97.6 F 12/26/23 11:40 Pulse 70 12/26/23 15:20 Resp 18 12/26/23 11:40 BP 132/79 12/26/23 11:40 Pulse Ox 99 12/26/23 11:40 FiO2 Intake & Output 12/25/23 12/26/23 12/26/23 18:59 06:59 18:59 Intake Total 777 Output Total 400 Balance 777 -400 Intake: Oral 777 Output: Urine 400 Other: Voiding Method Toilet Toilet Toilet # Voids 2 - Exam General: Sitting in a recliner chair and is not in acute distress. HENT: Supple neck. Neuro: Is awake, alert, oriented to self, place and time. He is following simple commands. No aphasia. The pupils are round equal reactive to light. Visual diana hard to assess because of cooperation. Extraocular movement intact. No facial weakness. No dysarthria. Tongue is midline and moves [id number] without any difficulty Motor: Strength in the uppers are 5 out of 5. In the lowers able to lift up above gravity symmetrically. Plantars are mute bilaterally. Some of the Workup during this hospital visit consisted of: Patient is afebrile Orthostatic most recent yesterday at night: Supine 133/85 with HR 84, sitting 129/81 with heart rate 87 and standing 134/79 with heart rate 96. CBC with differential is unremarkable ESR: 12 Ammonia level is 12 Vitamin B12: 339 TSH: 0.657 HbA1c: 5.7 CT head and face. is reported as no acute intracranial process. Nonspecific white matter changes, likely secondary due to chronic small vessel ischemic disease. No Acute facial bone fracture. I personally reviewed CT of the head and I felt there is a questionable subacute changes over subcortical right frontal parietal region. CT cervical spine is reported as no evidence of cervical spine fracture. Mild left C2-C3 facet arthropathy. Thoracic and lumbar is reported as no evidence of fracture of thoracic lumbar spine. Mild degenerative disc disease at L5-S1 with bilateral facet arthropathy. Routine EEG: Is abnormal. The background slowing is suggestive of mild encephalopathy. There is no focal slowing, epileptiform discharges or seizure on the EEG. Carotid duplex is less than 50% stenosis bilateral carotid bifurcation 2D echo: Echo size and soft function. No evidence of shunting by contrast bubble study. Mild tricuspid regurgitation with mild pulmonary hypertension. Trace mitral regurgitation MRI Brain: Similar mild cerebral atrophy and similar moderate to severe burden of chronic small vessel ischemic disease as compared to 2021. No acute intracranial abnormality seen. Moderate chronic ethmoid sinus disease. I personally reviewed the CT and I agree there is no acute intracranial process. The patient does have moderate to severe chronic small vessel disease. MRI Lumbar: No definitive evidence of disc herniation or significant spinal canal stenosis. Mild disc degeneration with associated osteoarthritic changes. No foraminal stenosis worse at L5S1 with bilateral moderate. In body It states moderate bilateral neural foraminal stenosis in L5-S1. - Labs CBC & Chem 7: 12/25/23 05:52 12/25/23 05:52 Assessment and Plan Assessment: This is a 63-year-old gentleman who was at home and had to recent fall without loss of consciousness and was confused when he woke up today early in the morning around 8-tammy. He was having a hard time standing up and that his legs were weak. His normal state was 1:30 AM today. The patient clarified that at home he was very dizzy at home and then when he stood up he fell. He feels dizzy with movement but is improving Two falls with confusion seems due to peripheral vertigo vs hypoxia (since had his home oxygen off at home overnight by mistake). MRI Brain is negative for ac jaky/subcute process. Orthostatic are negative. MRI Lumbar is nothing remarkable explaining symptoms---patient is doing drastically better. History of underlying unsteady gait at baseline Per medical record it seems the patient has a history of TIA but per the patient never had a stroke or TIA in the past Multiple myocardial infarction History of coronary artery disease status post stent Underlying history of hypertension History of COPD on home oxygen Plan: Patient is on home dose of aspirin 81 mg daily and Lipitor 80 mg daily. Physical therapy and occupation therapy are consulted Patient is on Meclizine 12.5mg tid and I changed to qid for total of 7 days and after that PRN. Consider event monitor for 30 days. If patient continues to have dizziness, recommend to follow-up with ENT as outpatient and consider vestibular rehab therapy. Will defer the rest of the medical management the primary and other specialist Recommend the patient to follow-up with Orthopedic surgeon as outpatient. Upon discharge, recommend the patient to follow-up with neurologist as outpatient within 2 weeks. There is no further neurological work-up. Will sign off. Please reconsult if needed. Time with Patient: Less than 30
== END 2023-12-26 18:42 | disposition home health service (06) ==
LOC: EC 09:15 → INTOOBSV 11:48 → OBSVTOIN 11:48 → UNDOADMOB 11:48 → 6NMEDSUR 11:48 → UNDODISIN 12-26 18:42
PROVIDERS: ADMIT Internal Medicine; ATTEND Internal Medicine
DX: R41.82 Altered mental status, unspecified (principal); J96.11 Chronic respiratory failure with hypoxia; R42 Dizziness and giddiness; S00.81XA Abrasion of other part of head, initial encounter; W19.XXXA Unspecified fall, initial encounter; J44.9 Chronic obstructive pulmonary disease, unspecified; I10 Essential (primary) hypertension; E78.5 Hyperlipidemia, unspecified; K21.9 Gastro-esophageal reflux disease without esophagitis; F41.9 Anxiety disorder, unspecified; M47.812 Spondylosis without myelopathy or radiculopathy, cervical region; I25.10 Atherosclerotic heart disease of native coronary artery without angina pectoris; I25.2 Old myocardial infarction; R26.81 Unsteadiness on feet; Z86.16 Personal history of COVID-19; Z86.73 Personal history of transient ischemic attack (TIA), and cerebral infarction without residual deficits; Z87.891 Personal history of nicotine dependence; Z95.5 Presence of coronary angioplasty implant and graft; Z99.81 Dependence on supplemental oxygen; Z79.899 Other long term (current) drug therapy; Z79.51 Long term (current) use of inhaled steroids; Z79.82 Long term (current) use of aspirin; Z88.5 Allergy status to narcotic agent; Z11.52 Encounter for screening for COVID-19
CPT/HCPCS: 96372 ×4; 96375; 96374; 99285; 36415; 94640 ×9; 94760 ×4; 95816; 93005; 93306; 97162; 97166; 85379; 80053 ×2; 80048 ×2; 85652; 84443; 82607; 82140; 82803; 83605; 84484; 85025 ×4; 85610; 85730; 86140; 81003; 80306; 83036; 87636; 72170; 71045; 93880; 72128; 72125; 72131; 70486; 70450; 70553; 72148; G0378 ×5; G0480; J2060; J1644 ×4; J2405; A9585; 80320

== ENCOUNTER 2024-03-18 09:00 | Emergency (ER) | payer MEDICARE ==
[2024-03-18 09:09] VITALS: TEMP 99.2
[2024-03-18 09:54] LABS: Basophils % (A) 0 %; Eosinophils # (A) 0.1 k/uL (0-0.7); Eosinophils % (A) 0 %; HCT 37.9 % (39.0-53.0); HGB 13.3 gm/dL (13.0-17.5); Lymphocytes # (A) 0.8 k/uL (1.0-4.8); Lymphocytes % (A) 7 %; MCH 33.2 pg (25.0-35.0); MCHC 35.2 g/dL (31.0-37.0); MCV 94.3 fL (80.0-100.0); Mean Platelet Volume 7.2; Monocytes # (A) 0.9 k/uL (0-1.0); Monocytes % (A) 8 %; Neutrophils # (A) 9.4 k/uL (1.3-7.7); Neutrophils % (A) 83 %; Platelet Count 206 k/uL (150-450); RBC 4.01 m/uL (4.30-5.90); RDW 12.6 % (11.5-15.5); WBC 11.3 k/uL (3.8-10.6)
[2024-03-18 10:12] LABS: INR 1.1 (<1.2); Partial Thromboplastin Time 25.2 sec (22.0-30.0); Prothrombin Time 11.6 sec (10.0-12.5)
[2024-03-18 10:53] LABS: ALT 22 U/L (4-49); AST 20 U/L (17-59); African American GFR (CKD) 80 (>60 ml/min/1.73 sqM); Albumin 3.6 g/dL (3.5-5.0); Alkaline Phosphatase 57 U/L (38-126); Anion Gap 4 mmol/L; Blood Urea Nitrogen 18 mg/dL (9-20); Calcium 8.8 mg/dL (8.4-10.2); Carbon Dioxide 26 mmol/L (22-30); Chloride 105 mmol/L (98-107); Glucose 119 mg/dL (74-99); Lipase 12 U/L (23-300); Magnesium 1.5 mg/dL (1.6-2.3); Non-African American GFR(CKD) 69 (>60 ml/min/1.73 sqM); Potassium 3.7 mmol/L (3.5-5.1); Sodium 135 mmol/L (137-145); Total Protein 5.8 g/dL (6.3-8.2)
--- NOTE | 2024-03-18 11:22 | CT ---
EXAMINATION TYPE: CT abdomen pelvis w con CT DLP: 1015.1 mGycm, Automated exposure control for dose reduction was used. DATE OF EXAM: 03/18/2024 11:16 AM COMPARISON: CT abdomen and pelvis 11/09/2023 CLINICAL INDICATION:Male, 63 years old with history of abd pain, rectal bleed; Abdominal pain, rectal bleeding TECHNIQUE: Standard CT of the abdomen and pelvis following the administration of 100 cc of Isovue 3 00 IV contrast material. Coronal and sagittal reformats were performed. FINDINGS: LOWER CHEST: Moderate centrilobular emphysematous changes. ABDOMEN LIVER: Few subcentimeter hypoattenuating structures are demonstrated throughout the liver, which are too small to accurately characterize but statistically likely to represent simple hepatic cysts GALLBLADDER AND BILE DUCTS: Unremarkable. PANCREAS: Unremarkable. SPLEEN: Unremarkable. ADRENAL GLANDS: Unremarkable. KIDNEYS AND URETERS: No evidence of hydronephrosis or renal calculus. The kidneys enhance symmetrical ly. Contrast is demonstrated within both collecting systems on the delayed phase. PELVIS BLADDER: Unremarkable REPRODUCTIVE: Coarse calcifications of the prostate gland are identified. ABDOMEN & PELVIS STOMACH AND BOWEL: Stomach and duodenum are unremarkable. There is circumferential wall thickening wi th fat stranding involving a long segment of the descending colon into the splenic flexure. No surrou nding fluid collections. The appendix is within normal limits. No evidence of bowel obstruction. PERITONEUM: No evidence of pneumoperitoneum or free fluid. VASCULATURE: Moderate atherosclerotic calcifications are present throughout the abdominal aorta and i ts branches. No evidence of aortic aneurysm. MUSCULOSKELETAL: No acute osseous abnormalities. Degenerative disc disease L5-S1. LYMPH NODES: No evidence for lymphadenopathy. SOFT TISSUE/ABDOMINAL WALL: Unremarkable IMPRESSION: 1. Long segment colitis involving the splenic flexure and descending colon. Etiologies include infec tious/inflammatory process with ischemia thought to be less likely due to long segment involvement. 2. COPD changes. [facility], , 03/18/2024 11:19 AM
--- NOTE | 2024-03-18 11:27 | ED ---
GI Bleed HPI - General Chief complaint: GI Bleed Stated complaint: Abd pain, possible GI bleed Time Seen by Provider: 03/18/24 09:15 Source: patient, EMS Mode of arrival: EMS Limitations: no limitations - History of Present Illness Initial comments: 63-year-old male with past medical history of coronary vascular disease, COPD, hypertension who presents emergency department starting lower abdominal pain and bloody stools. Patient reports that he has had lower abdominal pain with cramping and associated diarrhea. States that the stools then started turning maroon-colored. He denies any use of blood thinners. No history of gastric ulcers. No NSAID or alcohol use. He denies any fevers. States he had a colonoscopy 6 months ago without any acute findings. No history of GI bleeding. No history of liver disease. Does admit that he has had some bloody emesis as well. Today the pain got so significant that he decided to come into the emergency department. Patient has not taken anything for pain. No other alleviating, precipitating or modifying factors - Related Data Home Medications Medication Instructions Recorded Confirmed FLUoxetine HCL [PROzac] 40 mg PO DAILY 04/26/22 03/18/24 Isosorbide Mononitrate ER [Imdur] 90 mg PO DAILY 04/26/22 03/18/24 Nitroglycerin Sl Tabs [Nitrostat] 0.4 mg SL Q5M PRN 04/26/22 03/18/24 rOPINIRole HCL [Requip] 0.5 mg PO TID 04/26/22 03/18/24 Ezetimibe [Zetia] 10 mg PO DAILY 04/16/23 03/18/24 Ipratropium-Albuterol Nebulize 3 ml INHALATION RT-QID PRN 08/13/23 03/18/24 [Duoneb 0.5 mg-3 mg/3 ml Soln] Ipratropium/Albuter 20-100Mcg 1 puff INHALATION RT-QID 08/13/23 03/18/24 [Combivent Respimat 20-100Mcg Inhaler] Tiotropium Br/Olodaterol HCl 2 puff INHALATION RT-DAILY 11/10/23 03/18/24 [Stiolto Respimat Inhal [place]] Atorvastatin [Lipitor] 80 mg PO DAILY 12/12/23 03/18/24 Furosemide [Lasix] 20 mg PO DAILY 12/12/23 03/18/24 Famotidine [Pepcid] 20 mg PO HS PRN 03/18/24 03/18/24 Meclizine [Antivert] 12.5 mg PO BID PRN 03/18/24 03/18/24 Metoprolol Tartrate [Lopressor] 50 mg PO BID-W/MEALS 03/18/24 03/18/24 Ranolazine [Ranexa] 1,000 mg PO BID 03/18/24 03/18/24 Tamsulosin HCl [Flomax] 0.4 mg PO HS 03/18/24 03/18/24 Previous Rx's Medication Instructions Recorded Losartan [Cozaar] 25 mg PO DAILY #30 tab 11/10/23 Budesonide [Pulmicort] 0.5 mg INHALATION RT-BID #60 ml 12/13/23 Allergies Allergy/AdvReac Type Severity Reaction Status Date / Time codeine Allergy Anaphylaxis Verified 03/18/24 10:48 peanut Allergy Migraine/Allergy Verified 03/18/24 10:48 testing Review of Systems ROS Statement: Those systems with pertinent positive or pertinent negative responses have been documented in the HPI. ROS Other: All systems not noted in ROS Statement are negative. Past Medical History Past Medical History: Chest Pain / Angina, COPD, CVA/TIA, GERD/Reflux, Hyperlipidemia, Hypertension, Myocardial Infarction ([place]), Osteoarthritis (OA), Pneumonia Additional Past Medical History / Comment(s): COVID April 2022 and December 2022, multiple MIs, TIA, peripheral vision loss of left eye, white mass on brain in MRI, wears o2 at home 3L at night prn, Last Myocardial Infarction Date:: 2020 History of Any Multi-Drug Resistant Organisms: None Reported Past Surgical History: Heart Catheterization With Stent Additional Past Surgical History / Comment(s): 2 cardiac stents Past Anesthesia/Blood Transfusion Reactions: No Reported Reaction Date of Last Stent Placement:: 2020 Past Psychological History: Anxiety Smoking Status: Former smoker Past Alcohol Use History: None Reported Past Drug Use History: None Reported - Past Family History Father Family Medical History: Myocardial Infarction ([place]) Additional Family Medical History / Comment(s): from [place] Brother(s) Family Medical History: Myocardial Infarction ([place]) Additional Family Medical History / Comment(s): from [place] General Exam Limitations: no limitations General appearance: alert, in no apparent distress Head exam: Present: atraumatic, normocephalic, normal inspection Eye exam: Present: normal appearance, PERRL, EOMI. Absent: scleral icterus, conjunctival injection, periorbital swelling ENT exam: Present: normal exam, mucous membranes moist Neck exam: Present: normal inspection. Absent: tenderness, meningismus, lymphadenopathy Respiratory exam: Present: normal lung sounds bilaterally. Absent: respiratory distress, wheezes, rales, rhonchi, stridor Cardiovascular Exam: Present: regular rate, normal rhythm, normal heart sounds. Absent: systolic murmur, diastolic murmur, rubs, gallop, clicks GI/Abdominal exam: Present: tenderness, normal bowel sounds. Absent: distended, guarding, rebound, rigid Rectal exam: Present: heme (+) stool, bloody stool. Absent: tenderness Extremities exam: Present: normal inspection, full ROM, normal capillary refill. Absent: tenderness, pedal edema, joint swelling, calf tenderness Back exam: Present: normal inspection Neurological exam: Present: alert, oriented X3, CN II-XII intact Psychiatric exam: Present: normal affect, normal mood Skin exam: Present: warm, dry, intact, normal color. Absent: rash Course Vital Signs 03/18/24 09:01 Temperature 99.2 F Pulse Rate 96 Respiratory 20 Rate Blood Pressure 130/71 O2 Sat by Pulse 96 Oximetry Medical Decision Making - Medical Decision Making Was pt. sent in by a medical professional or institution (, PA, JIGSAW OPERATOR, urgent care, hospital, or [facility]...) When possible be specific @ -No Did you speak to anyone other than the patient for history (EMS, parent, family, police, friend...)? What history was obtained from this source @ -Spoke with EMS for history as well as the patient's Did you review nursing and triage notes (agree or disagree)? Why? @ -I reviewed and agree with nursing and triage notes Were old charts reviewed (outside hosp., previous admission, EMS record, old EKG, old radiological studies, urgent care reports/EKG's, [facility] records)? Report findings @ -No old charts were reviewed Differential Diagnosis (chest pain, altered mental status, abdominal pain women, abdominal pain men, vaginal bleeding, weakness, fever, dyspnea, syncope, headache, dizziness, GI bleed, back pain, seizure, CVA, palpatations, mental health, musculoskeletal)? @ -Differential GI Bleed: Esophageal varices, aortoenteric fistula, Laura-Stafford, gastritis, peptic ulcer disease, diverticulosis, inflammatory bowel disease, hemorrhoids, fissure, colitis, malignancy, Meckel's diverticulum, this is not meant to be an all- inclusive list. EKG interpreted by me (3pts min.). @ -yes and demonstrates sinus rhythm with a rate of 94. ND interval 160. QRS 101. QTc of 419. No acute ST segment elevations or depressions X-rays interpreted by me (1pt min.). @ -None done CT interpreted by me (1pt min.). @ -Yes and demonstrates descending colitis U/S interpreted by me (1pt. min.). @ -None done What testing was considered but not performed or refused? (CT, X-rays, U/S, labs)? Why? @ -None What meds were considered but not given or refused? Why? @ -None Did you discuss the management of the patient with other professionals (professionals i.e. , PA, JIGSAW OPERATOR, lab, RT, psych nurse, nephrology social worker, recordings librarian, teacher, commercial loan officer, case repairer)? Give summary @ -Spoke with Dr. Cordoba who refused to consult on the patient. Feels that the patient needs a GI specialist Was smoking cessation discussed for >3mins.? @ -No Was critical care preformed (if so, how long)? @ -No Were there social determinants of health that impacted care today? How? (Homelessness, low income, unemployed, alcoholism, drug addiction, transportation, low edu. Level, literacy, decrease access to med. care, assisted, rehab)? @ -No Was there de-escalation of care discussed even if they declined (Discuss DNR or withdrawal of care, Hospice)? DNR status @ -No What co-morbidities impacted this encounter? (DM, HTN, Smoking, COPD, CAD, Cancer, CVA, ARF, Chemo, Hep., AIDS, mental health diagnosis, sleep apnea, morbid obesity)? @ -Coronary disease, COPD Was patient admitted / discharged? Hospital course, mention meds given and route , prescriptions, significant lab abnormalities, going to OR and other pertinent info. @ -Upon arrival patient seen and evaluated in room 23. Thorough history and physical exam was performed. I did perform a rectal exam which does demonstrate bright red blood per rectum. Patient does have focal tenderness in his abdomen. IV is established. Laboratory studies are conducted. He does remain hemodynamically stable throughout his stay. CT does demonstrate an area of colitis. I did call and speak with the on-call surgeon Dr. Cordoba. Explained that we do not have GI coverage. He was not willing to consult on the patient and feels that he does need GI services. I discussed this with the patient. He was agreeable to transfer. I did call Maryana Ng. Patient was accepted by Dr. Rahman and Dr. Alan. Patient will be transferred via EMS. He did receive a dose of Zosyn and 80 mg of Protonix. Patient will be transferred in stable condition Undiagnosed new problem with uncertain prognosis? @ -No Drug Therapy requiring intensive monitoring for toxicity (Heparin, Nitro, Insulin, Cardizem)? @ -No Were any procedures done? @ -No Diagnosis/symptom? @ -Acute melena, acute colitis Acute, or Chronic, or Acute on Chronic? @ -Acute Uncomplicated (without systemic symptoms) or Complicated (systemic symptoms)? @ -Complicated Side effects of treatment? @ -No Exacerbation, Progression, or Severe Exacerbation? @ -No Poses a threat to life or bodily function? How? (Chest pain, [place], [place], pneumonia, PE, COPD, DKA, ARF, appy, cholecystitis, CVA, Diverticulitis, Homicidal, Suicidal, threat to staff... and all critical care pts) @ -Yes as patient is having lower GI bleeding - Lab Data Result diagrams: 03/18/24 09:35 03/18/24 10:25 Lab Results 03/18/24 03/18/24 03/18/24 Range/Units 09:35 09:35 09:43 WBC 11.3 H (3.8-10.6) k/uL RBC 4.01 L (4.30-5.90) m/uL Hgb 13.3 (13.0-17.5) gm/dL Hct 37.9 L (39.0-53.0) % MCV 94.3 (80.0-100.0) fL MCH 33.2 (25.0-35.0) pg MCHC 35.2 (31.0-37.0) g/dL RDW 12.6 (11.5-15.5) % Plt Count 206 (150-450) k/uL MPV 7.2 Neutrophils % 83 % Lymphocytes % 7 % Monocytes % 8 % Eosinophils % 0 % Basophils % 0 % Neutrophils # 9.4 H (1.3-7.7) k/uL Lymphocytes # 0.8 L (1.0-4.8) k/uL Monocytes # 0.9 (0-1.0) k/uL Eosinophils # 0.1 (0-0.7) k/uL Basophils # 0.0 (0-0.2) k/uL PT 11.6 (10.0-12.5) sec INR 1.1 (<1.2) APTT 25.2 (22.0-30.0) sec Sodium (137-145) mmol/L Potassium (3.5-5.1) mmol/L Chloride (98-107) mmol/L Carbon Dioxide (22-30) mmol/L Anion Gap mmol/L BUN (9-20) mg/dL Creatinine (0.66-1.25) mg/dL Est GFR (CKD-EPI)AfAm (>60 ml/min/1.73 sqM) Est GFR (CKD-EPI)NonAf (>60 ml/min/1.73 sqM) Glucose (74-99) mg/dL Plasma Lactic Acid Kuldeep 0.8 (0.7-2.0) mmol/L Calcium (8.4-10.2) mg/dL Magnesium (1.6-2.3) mg/dL Total Bilirubin (0.2-1.3) mg/dL AST (17-59) U/L ALT (4-49) U/L Alkaline Phosphatase (38-126) U/L Troponin I (0.000-0.034) ng/mL Total Protein (6.3-8.2) g/dL Albumin (3.5-5.0) g/dL Lipase (23-300) U/L Stool Occult Blood (Negative) 03/18/24 03/18/24 03/18/24 Range/Units 10:20 10:25 10:25 WBC (3.8-10.6) k/uL RBC (4.30-5.90) m/uL Hgb (13.0-17.5) gm/dL Hct (39.0-53.0) % MCV (80.0-100.0) fL MCH (25.0-35.0) pg MCHC (31.0-37.0) g/dL RDW (11.5-15.5) % Plt Count (150-450) k/uL MPV Neutrophils % % Lymphocytes % % Monocytes % % Eosinophils % % Basophils % % Neutrophils # (1.3-7.7) k/uL Lymphocytes # (1.0-4.8) k/uL Monocytes # (0-1.0) k/uL Eosinophils # (0-0.7) k/uL Basophils # (0-0.2) k/uL PT (10.0-12.5) sec INR (<1.2) APTT (22.0-30.0) sec Sodium 135 L (137-145) mmol/L Potassium 3.7 (3.5-5.1) mmol/L Chloride 105 (98-107) mmol/L Carbon Dioxide 26 (22-30) mmol/L Anion Gap 4 mmol/L BUN 18 (9-20) mg/dL Creatinine 1.12 (0.66-1.25) mg/dL Est GFR (CKD-EPI)AfAm 80 (>60 ml/min/1.73 sqM) Est GFR (CKD-EPI)NonAf 69 (>60 ml/min/1.73 sqM) Glucose 119 H (74-99) mg/dL Plasma Lactic Acid Kuldeep (0.7-2.0) mmol/L Calcium 8.8 (8.4-10.2) mg/dL Magnesium 1.5 L (1.6-2.3) mg/dL Total Bilirubin 1.0 (0.2-1.3) mg/dL AST 20 (17-59) U/L ALT 22 (4-49) U/L Alkaline Phosphatase 57 (38-126) U/L Troponin I <0.012 (0.000-0.034) ng/mL Total Protein 5.8 L (6.3-8.2) g/dL Albumin 3.6 (3.5-5.0) g/dL Lipase 12 L (23-300) U/L Stool Occult Blood Positive (Negative) Disposition Clinical Impression: GI bleed, Melena, Colitis Disposition: OTHER INSTITUTION NOT DEFINED Condition: Serious Referrals: Yara Wong MD [Primary Care Provider] - 1-2 days Time of Disposition: 13:32 - Out of Hospital Transfer - Req. Specs Out of Hospital Transfer - Requested Specifics: Other Emergency Center ([facility])
[2024-03-18] MEDS: PIPERACILLIN-TAZOBACTAM 3.375 GM in SODIUM CHLORIDE 0.9% 100 ML IVPB STA (12:21)
[2024-03-18] MEDS: PANTOPRAZOLE 40 MG/10 ML VIAL IVP STA (13:01)
[2024-03-18] MEDS: SODIUM CHLORIDE 0.9% 1,000 ML IV SCH (13:57)
[2024-03-18 14:14] VITALS: BP 107/53; PULSE 87; RESP 19
== END 2024-03-18 14:21 | disposition other institution (70) ==
LOC: EC 09:00
CPT/HCPCS: 36415; 74177; 80053; 82272; 83605; 83690; 83735; 84484; 85025; 85610; 85730; 96365; 96375; 99285

== ENCOUNTER 2024-03-23 13:45 | Inpatient (IN) | payer MEDICARE ==
--- NOTE | 2024-03-23 14:28 | ED ---
Abdominal Pain HPI - General Source: patient, RN notes reviewed Mode of arrival: wheelchair Limitations: no limitations - History of Present Illness MD Complaint: abdominal pain Onset/Timin -: days(s) Location: LUQ, LLQ Radiation: back, chest Migration to: L flank <Jose M Fierro - Last Filed: 03/23/24 14:32> - General Source: patient, RN notes reviewed, old records reviewed Mode of arrival: wheelchair Limitations: no limitations - History of Present Illness MD Complaint: abdominal pain -: days(s) Location: LUQ, LLQ Radiation: back, chest Migration to: L flank Severity: moderate Severity scale (1-10): 6 Quality: aching Consistency: constant Improves With: nothing Worsens With: nothing Associated Symptoms: nausea, vomiting Treatments Prior to Arrival: other (0) <Martin Boston - Last Filed: 03/26/24 17:55> - General Chief Complaint: Abdominal Pain Stated Complaint: Abd pain Time Seen by Provider: 03/23/24 14:03 - History of Present Illness Initial Comments: This is a 63-year-old male with history of hypertension and stage IV COPD presenting for ongoing left abdominal pain for 5 days. Patient was seen in this ER on 03/18/2024. Patient was seen by Dr. Bhatia and diagnosed with colitis via CT scan. Patient was transferred to [facility] for further workup and treat ment. Patient endorses recent return from [facility] where he was diagnosed with ischemic colitis due to blood in stool and vomit. Patient states he was seen by gastroenterology while there for only 5 minutes before being discharged without treatment. Endorses receiving Zosyn at this ER but otherwise did not receive any further antibiotic treatment. Patient states pain is not radiating to his left chest and back. States pain is 9 out of 10. Endorses recent blood pressure readings showing both hypertensive urgency and hypotension. endorses ongoing hematochezia and hematemesis, causing him to be unable to take his daily p.o. medications. Patient denies fever, chills, urinary symptoms AMS, ALOC, dizziness. (Jose M Fierro) This is a 63-year-old male to ER for evaluation of colitis on CT scan 5 days ago. (Martin Boston) - Related Data Home Medications Medication Instructions Recorded Confirmed FLUoxetine HCL [PROzac] 40 mg PO DAILY 04/26/22 03/23/24 Isosorbide Mononitrate ER [Imdur] 90 mg PO DAILY 04/26/22 03/23/24 Nitroglycerin Sl Tabs [Nitrostat] 0.4 mg SL Q5M PRN 04/26/22 03/23/24 rOPINIRole HCL [Requip] 0.5 mg PO TID 04/26/22 03/23/24 Ezetimibe [Zetia] 10 mg PO DAILY 04/16/23 03/23/24 Ipratropium-Albuterol Nebulize 3 ml INHALATION RT-QID 08/13/23 03/23/24 [Duoneb 0.5 mg-3 mg/3 ml Soln] Ipratropium/Albuter 20-100Mcg 1 puff INHALATION RT-QID 08/13/23 03/23/24 [Combivent Respimat 20-100Mcg Inhaler] Tiotropium Br/Olodaterol HCl 2 puff INHALATION RT-DAILY 11/10/23 03/23/24 [Stiolto Respimat Inhal [place]] Atorvastatin [Lipitor] 80 mg PO DAILY 12/12/23 03/23/24 Furosemide [Lasix] 20 mg PO DAILY 12/12/23 03/23/24 Famotidine [Pepcid] 20 mg PO HS PRN 03/18/24 03/23/24 Meclizine [Antivert] 12.5 mg PO BID PRN 03/18/24 03/23/24 Metoprolol Tartrate [Lopressor] 50 mg PO BID-W/MEALS 03/18/24 03/23/24 Ranolazine [Ranexa] 1,000 mg PO BID 03/18/24 03/23/24 Tamsulosin HCl [Flomax] 0.4 mg PO HS 03/18/24 03/23/24 Ciprofloxacin HCl [Cipro] 500 mg PO Q12HR 03/23/24 03/23/24 Ondansetron Odt [Zofran Odt] 4 - 8 mg PO Q4H PRN 03/23/24 03/23/24 Pantoprazole [Protonix] 40 mg PO BID 03/23/24 03/23/24 metroNIDAZOLE [Flagyl] 500 mg PO Q8H 03/23/24 03/23/24 Previous Rx's Medication Instructions Recorded Losartan [Cozaar] 25 mg PO DAILY #30 tab 11/10/23 Budesonide [Pulmicort] 0.5 mg INHALATION RT-BID #60 ml 12/13/23 Allergies Allergy/AdvReac Type Severity Reaction Status Date / Time codeine Allergy Anaphylaxis Verified 03/23/24 15:59 peanut Allergy Migraine/Allergy Verified 03/23/24 15:59 testing Review of Systems ROS Other: All systems not noted in ROS Statement are negative. <Jose M Fierro - Last Filed: 03/23/24 14:32> ROS Other: All systems not noted in ROS Statement are negative. <Martin Boston - Last Filed: 03/26/24 17:55> ROS Statement: Those systems with pertinent positive or pertinent negative responses have been documented in the HPI. Past Medical History Past Medical History: Chest Pain / Angina, COPD, CVA/TIA, GERD/Reflux, Hyperlipidemia, Hypertension, Myocardial Infarction ([place]), Osteoarthritis (OA), Pneumonia Additional Past Medical History / Comment(s): COVID April 2022 and December 2022, multiple MIs, TIA, peripheral vision loss of left eye, white mass on brain in MRI, wears o2 at home 3L at night prn, Last Myocardial Infarction Date:: 2020 History of Any Multi-Drug Resistant Organisms: None Reported Past Surgical History: Heart Catheterization With Stent Additional Past Surgical History / Comment(s): 2 cardiac stents Past Anesthesia/Blood Transfusion Reactions: No Reported Reaction Date of Last Stent Placement:: 2020 Past Psychological History: Anxiety Smoking Status: Former smoker Past Alcohol Use History: None Reported Past Drug Use History: None Reported - Past Family History Father Family Medical History: Myocardial Infarction ([place]) Additional Family Medical History / Comment(s): from [place] Brother(s) Family Medical History: Myocardial Infarction ([place]) Additional Family Medical History / Comment(s): from [place] <Jose M Fierro - Last Filed: 03/23/24 14:32> General Exam Limitations: no limitations <Jose M Fierro - Last Filed: 03/23/24 14:32> General appearance: alert, in no apparent distress, anxious Head exam: Present: atraumatic, normocephalic, normal inspection Eye exam: Present: normal appearance, PERRL, EOMI. Absent: scleral icterus, conjunctival injection, periorbital swelling ENT exam: Present: normal exam, mucous membranes moist Neck exam: Present: normal inspection. Absent: tenderness, meningismus, lymphadenopathy Respiratory exam: Present: normal lung sounds bilaterally. Absent: respiratory distress, wheezes, rales, rhonchi, stridor Cardiovascular Exam: Present: regular rate, normal rhythm, normal heart sounds. Absent: systolic murmur, diastolic murmur, rubs, gallop, clicks GI/Abdominal exam: Present: soft, normal bowel sounds. Absent: distended, tenderness, guarding, rebound, rigid Extremities exam: Present: normal inspection, full ROM, normal capillary refill. Absent: tenderness, pedal edema, joint swelling, calf tenderness Back exam: Present: normal inspection Neurological exam: Present: alert, oriented X3, CN II-XII intact Psychiatric exam: Present: normal affect, normal mood Skin exam: Present: warm, dry, intact, normal color. Absent: rash <Martin Boston - Last Filed: 03/26/24 17:55> - General Exam Comments Initial Comments: Visual Physical Exam Vital signs reviewed General: Well-appearing, nontoxic, no acute distress. Head: Normocephalic, atraumatic Eyes: PERRLA, EOMI ENT: Airway patent Chest: Nonlabored breathing Skin: No visual rash, normal skin tone Neuro: Alert and oriented 3 Musculoskeletal: No gross abnormalities (Jose M Fierro) Course <Martin Boston - Last Filed: 03/26/24 17:55> Vital Signs 03/23/24 03/23/24 03/23/24 13:46 15:46 17:28 Temperature 97.6 F Pulse Rate 84 90 90 Respiratory 18 18 18 Rate Blood Pressure 121/67 128/76 131/70 O2 Sat by Pulse 96 96 98 Oximetry - Reevaluation(s) Reevaluation #1: 03/23/24 15:52 Medical records reviewed (Martin Boston) Reevaluation #2: 03/23/24 15:52 Patient symptoms unchanged (Martin Boston) Reevaluation #3: 03/23/24 15:52 Patient informed of results and questions answered (Martin Boston) Reevaluation #4: 03/23/24 15:59 Was pt. sent in by a medical professional or institution ([facility], [employer], urgent care, hospital, or shelter...) When possible be specific @ -no Did you speak to anyone other than the patient for history (EMS, parent, family, police, friend...)? What history was obtained from this source @ -no Did you review nursing and triage notes (agree or disagree)? Why? @ -agree Are old charts reviewed (outside hosp., previous admission, EMS record, old EKG, old radiological studies, urgent care reports/EKG's, shelter records)? Report findings @ -yes Differential Diagnosis (chest pain, altered mental status, abdominal pain women, abdominal pain men, vaginal bleeding, weakness, fever, dyspnea, syncope, headache, dizziness, GI bleed, back pain, seizure, CVA, palpatations, mental health, musculoskeletal)? @ -prior EKG interpreted by me (3pts min.). @ -yes X-rays interpreted by me (1pt min.). @ -no CT interpreted by me (1pt min.). @ -no U/S interpreted by me (1pt. min.). @ -no What testing was considered but not performed or refused? (CT, X-rays, U/S, labs)? Why? @ -none What meds were considered but not given or refused? Why? @ -none Did you discuss the management of the patient with other professionals (professionals i.e. [facility], [employer], lab, RT, psych nurse, 7th grade social studies teacher, pit worker power shovel, teacher, patient transport officer, case aide)? Give summary @ -no Was smoking cessation discussed for >3mins.? @ -no Was critical care preformed (if so, how long)? @ -no Were there social determinants of health that impacted care today? How? (Homelessness, low income, unemployed, alcoholism, drug addiction, transportation, low edu. Level, literacy, decrease access to med. care, senior care, rehab)? @ -none Was there de-escalation of care discussed even if they declined (Discuss DNR or withdrawal of care, Hospice)? DNR status @ -no What co-morbidities impacted this encounter? (DM, HTN, Smoking, COPD, CAD, Cancer, CVA, ARF, Chemo, Hep., AIDS, mental health diagnosis, sleep apnea, morbid obesity)? @ -none Was patient admitted / discharged? Hospital course, mention meds given and route, prescriptions, significant lab abnormalities, going to OR and other pertinent info. @ - 63 male to the ER for evaluation of severe abdominal pain with diarrhea. Colitis, patient will admit for treatment of outpatient symptoms main complaint being pain nausea and vomiting Admit Undiagnosed new problem with uncertain prognosis? @ -no Drug Therapy requiring intensive monitoring for toxicity (Heparin, Nitro, Insulin, Cardizem)? @ -no Were any procedures done? @ -no Diagnosis/symptom? @ -Colitis Acute, or Chronic, or Acute on Chronic? @ -Acute Uncomplicated (without systemic symptoms) or Complicated (systemic symptoms)? @ -Complicated Side effects of treatment? @ -no Exacerbation, Progression, or Severe Exacerbation? @ -exacerbation Poses a threat to life or bodily function? How? (Chest pain, [place], [place], pneumonia, PE, COPD, DKA, ARF, appy, cholecystitis, CVA, Diverticulitis, Homicidal, Suicidal, threat to staff... and all critical care pts) @ -yes (Martin Boston) Reevaluation #5: Differential Abdominal Pain Men: Appendicitis, cholecystitis, diverticulosis, ischemic bowel, pancreatitis, hepatitis, UTI, gastroenteritis, AAA, incarcerated hernia, bowel obstruction, constipation, inflammatory bowel, hepatitis, peptic ulcer disease, splenic infarction, perforated viscus, testicular torsion, this is not meant to be an all-inclusive list (Martin Boston) - Consultations Consultation #1: Spoke with [facility] who agrees to admit this patient (Martin Boston) Medical Decision Making <Jose M Fierro - Last Filed: 03/23/24 14:32> - Lab Data Result diagrams: 03/26/24 06:02 03/26/24 06:02 - EKG Data -: EKG Interpreted by Me (EGK is sinus 76 AK 148 QRS 99 QTc 426) - Radiology Data Radiology results: report reviewed (Repeat CT from earlier this week was positive for colitis) <Martin Boston - Last Filed: 03/26/24 17:55> - Medical Decision Making I completed the quick note portion of this chart signed Jose M Fierro PA-C (Jose M Fierro) 63 male to the ER for evaluation of severe abdominal pain with diarrhea. Colitis, patient will admit for treatment of outpatient symptoms main complaint being pain nausea and vomiting (Martin Boston) - Lab Data Lab Results 03/23/24 03/23/24 03/23/24 Range/Units 14:47 14:47 14:47 WBC 5.2 (3.8-10.6) k/uL RBC 3.79 L (4.30-5.90) m/uL Hgb 12.6 L (13.0-17.5) gm/dL Hct 36.0 L (39.0-53.0) % MCV 95.1 (80.0-100.0) fL MCH 33.3 (25.0-35.0) pg MCHC 35.0 (31.0-37.0) g/dL RDW 12.9 (11.5-15.5) % Plt Count 294 (150-450) k/uL MPV 6.8 Neutrophils % 66 % Lymphocytes % 18 % Monocytes % 9 % Eosinophils % 3 % Basophils % 1 % Neutrophils # 3.4 (1.3-7.7) k/uL Lymphocytes # 1.0 (1.0-4.8) k/uL Monocytes # 0.5 (0-1.0) k/uL Eosinophils # 0.1 (0-0.7) k/uL Basophils # 0.0 (0-0.2) k/uL PT 11.4 (10.0-12.5) sec INR 1.0 (<1.2) APTT 21.1 L (22.0-30.0) sec Sodium 138 (137-145) mmol/L Potassium 4.2 (3.5-5.1) mmol/L Chloride 108 H (98-107) mmol/L Carbon Dioxide 25 (22-30) mmol/L Anion Gap 5 mmol/L BUN 10 (9-20) mg/dL Creatinine 0.80 (0.66-1.25) mg/dL Est GFR (CKD-EPI)AfAm >90 (>60 ml/min/1.73 sqM) Est GFR (CKD-EPI)NonAf >90 (>60 ml/min/1.73 sqM) Glucose 102 H (74-99) mg/dL Plasma Lactic Acid K[place] (0.7-2.0) mmol/L Calcium 8.9 (8.4-10.2) mg/dL Total Bilirubin 1.0 (0.2-1.3) mg/dL AST 54 (17-59) U/L ALT 40 (4-49) U/L Alkaline Phosphatase 46 (38-126) U/L Troponin I (0.000-0.034) ng/mL Total Protein 6.1 L (6.3-8.2) g/dL Albumin 3.7 (3.5-5.0) g/dL Amylase 33 (30-110) U/L Lipase 54 (23-300) U/L 03/23/24 03/23/24 Range/Units 14:47 14:47 WBC (3.8-10.6) k/uL RBC (4.30-5.90) m/uL Hgb (13.0-17.5) gm/dL Hct (39.0-53.0) % MCV (80.0-100.0) fL MCH (25.0-35.0) pg MCHC (31.0-37.0) g/dL RDW (11.5-15.5) % Plt Count (150-450) k/uL MPV Neutrophils % % Lymphocytes % % Monocytes % % Eosinophils % % Basophils % % Neutrophils # (1.3-7.7) k/uL Lymphocytes # (1.0-4.8) k/uL Monocytes # (0-1.0) k/uL Eosinophils # (0-0.7) k/uL Basophils # (0-0.2) k/uL PT (10.0-12.5) sec INR (<1.2) APTT (22.0-30.0) sec Sodium (137-145) mmol/L Potassium (3.5-5.1) mmol/L Chloride (98-107) mmol/L Carbon Dioxide (22-30) mmol/L Anion Gap mmol/L BUN (9-20) mg/dL Creatinine (0.66-1.25) mg/dL Est GFR (CKD-EPI)AfAm (>60 ml/min/1.73 sqM) Est GFR (CKD-EPI)NonAf (>60 ml/min/1.73 sqM) Glucose (74-99) mg/dL Plasma Lactic Acid K[place] 1.1 (0.7-2.0) mmol/L Calcium (8.4-10.2) mg/dL Total Bilirubin (0.2-1.3) mg/dL AST (17-59) U/L ALT (4-49) U/L Alkaline Phosphatase (38-126) U/L Troponin I <0.012 (0.000-0.034) ng/mL Total Protein (6.3-8.2) g/dL Albumin (3.5-5.0) g/dL Amylase (30-110) U/L Lipase (23-300) U/L Disposition <Jose M Fierro - Last Filed: 03/23/24 14:32> Is patient prescribed a controlled substance at d/c from ED?: No Time of Disposition: 15:30 <Martin Boston - Last Filed: 03/26/24 17:55> Clinical Impression: Dizziness, Colitis, Nausea and vomiting, Abdominal pain, Abdominal colic Disposition: ADMITTED IP TO THIS HOSP Condition: Fair
[2024-03-23 15:00] LABS: Basophils % (A) 1 %; Eosinophils # (A) 0.1 k/uL (0-0.7); Eosinophils % (A) 3 %; HGB 12.6 gm/dL (13.0-17.5); Lymphocytes % (A) 18 %; MCH 33.3 pg (25.0-35.0); MCV 95.1 fL (80.0-100.0); Mean Platelet Volume 6.8; Monocytes # (A) 0.5 k/uL (0-1.0); Monocytes % (A) 9 %; Neutrophils # (A) 3.4 k/uL (1.3-7.7); Neutrophils % (A) 66 %; Platelet Count 294 k/uL (150-450); RBC 3.79 m/uL (4.30-5.90); RDW 12.9 % (11.5-15.5); WBC 5.2 k/uL (3.8-10.6)
[2024-03-23 15:16] LABS: ALT 40 U/L (4-49); African American GFR (CKD) >90 (>60 ml/min/1.73 sqM); Albumin 3.7 g/dL (3.5-5.0); Amylase 33 U/L (30-110); Anion Gap 5 mmol/L; Blood Urea Nitrogen 10 mg/dL (9-20); Calcium 8.9 mg/dL (8.4-10.2); Carbon Dioxide 25 mmol/L (22-30); Chloride 108 mmol/L (98-107); Glucose 102 mg/dL (74-99); Lipase 54 U/L (23-300); Non-African American GFR(CKD) >90 (>60 ml/min/1.73 sqM); Sodium 138 mmol/L (137-145); Total Protein 6.1 g/dL (6.3-8.2)
[2024-03-23 15:21] LABS: AST 54 U/L (17-59); Alkaline Phosphatase 46 U/L (38-126); Potassium 4.2 mmol/L (3.5-5.1)
[2024-03-23 15:37] LABS: Prothrombin Time 11.4 sec (10.0-12.5)
[2024-03-23] MEDS: ONDANSETRON 4 MG/2 ML VIAL IVP STA (15:40)
[2024-03-23] MEDS: KETOROLAC 15 MG/ML 1 ML VIAL IVP STA (15:40)
[2024-03-23] MEDS: HYDROmorphone 0.5 MG/0.5 ML SYRINGE IVP STA (15:40)
[2024-03-23] MEDS: SODIUM CHLORIDE 0.9% 1,000 ML IV STA (15:41)
[2024-03-23 15:49] LABS: Partial Thromboplastin Time 21.1 sec (22.0-30.0)
[2024-03-23] MEDS ORDERED: NALOXONE 0.4 MG/ML 1 ML VIAL IV PRN (16:00)
[2024-03-23] MEDS: PANTOPRAZOLE 40 MG/10 ML VIAL IVP SCH (18:13)
[2024-03-23] MEDS: PROCHLORPERAZINE INJ 10 MG/2 ML VIAL IVP STA (18:14)
[2024-03-23] MEDS: SODIUM CHLORIDE 0.9% 1,000 ML IV SCH (18:15)
[2024-03-23] MEDS: HYDROmorphone 1 MG/ML 1 ML SYRINGE IVP STA (18:55)
[2024-03-24 03:22] LABS: Basophils % (A) 0 %; Eosinophils # (A) 0.1 k/uL (0-0.7); Eosinophils % (A) 3 %; HCT 30.7 % (39.0-53.0); HGB 10.9 gm/dL (13.0-17.5); Lymphocytes # (A) 1.3 k/uL (1.0-4.8); Lymphocytes % (A) 30 %; MCH 33.6 pg (25.0-35.0); MCHC 35.4 g/dL (31.0-37.0); MCV 94.8 fL (80.0-100.0); Mean Platelet Volume 7.4; Monocytes # (A) 0.5 k/uL (0-1.0); Monocytes % (A) 12 %; Neutrophils # (A) 2.2 k/uL (1.3-7.7); Neutrophils % (A) 51 %; Platelet Count 211 k/uL (150-450); RBC 3.24 m/uL (4.30-5.90); RDW 13.4 % (11.5-15.5); WBC 4.3 k/uL (3.8-10.6)
[2024-03-24 03:46] LABS: ALT 32 U/L (4-49); AST 37 U/L (17-59); African American GFR (CKD) >90 (>60 ml/min/1.73 sqM); Albumin 2.5 g/dL (3.5-5.0); Alkaline Phosphatase 45 U/L (38-126); Anion Gap 4 mmol/L; Blood Urea Nitrogen 10 mg/dL (9-20); Calcium 7.8 mg/dL (8.4-10.2); Carbon Dioxide 21 mmol/L (22-30); Chloride 113 mmol/L (98-107); Glucose 81 mg/dL (74-99); Lipase 39 U/L (23-300); Magnesium 1.7 mg/dL (1.6-2.3); Non-African American GFR(CKD) >90 (>60 ml/min/1.73 sqM); Phosphorus 3.6 mg/dL (2.5-4.5); Potassium 3.5 mmol/L (3.5-5.1); Sodium 138 mmol/L (137-145); Total Bilirubin 0.6 mg/dL (0.2-1.3); Total Protein 4.5 g/dL (6.3-8.2)
[2024-03-24] MEDS ORDERED: FAMOTIDINE 20 MG TAB PO PRN (11:24)
[2024-03-24] MEDS: POTASSIUM CHLORIDE ER 20 MEQ TAB.ER PO STA (11:31)
[2024-03-24] MEDS: IPRATROPIUM-ALBUTEROL 3 ML NEB INHALATION SCH (11:39)
[2024-03-24] MEDS: ISOSORBIDE MONONITRATE ER 30 MG TAB.ER.24H PO SCH (11:48)
[2024-03-24] MEDS: HYDROmorphone 1 MG/ML 1 ML SYRINGE IVP PRN (11:49)
[2024-03-24] MEDS: FLUoxetine HCL 20 MG CAP PO SCH (11:49)
[2024-03-24] MEDS: HEPARIN SODIUM,PORCINE 5,000 UNIT/ML 1 ML VIAL SQ SCH (14:54)
[2024-03-24] MEDS: metroNIDAZOLE-NS PMX 500 MG in SALINE 1 100ML.BAG IVPB SCH (14:58)
[2024-03-24] MEDS: BUDESONIDE 0.5 MG/2 ML NEBU INHALATION SCH (19:36)
[2024-03-24] MEDS: RANOLAZINE 500 MG TAB.ER.12H PO SCH (20:47)
[2024-03-24] MEDS: TAMSULOSIN 0.4 MG CAP.ER.24H PO SCH (20:47)
--- NOTE | 2024-03-24 22:37 | P.HPIM ---
History of Present Illness H&P Date: 03/24/24 Chief Complaint: Abdominal pain Patient is a 63-year-old male with a past medical history of CVA/TIA, history of [place], coronary artery disease with stent placement, hypertension, hyperlipidemia, osteoarthritis, stage IV COPD on home oxygen at 3 L via nasal cannula, anxiety and prior history of smoking. Patient presents to ER with complaints of abdominal pain for the past 5 days. Patient was initially seen in the ER on 03/18/2024. He presented to ER initially due to blood in his stool. Patient had CT of the abdomen pelvis showed long segment colitis involving the splenic flexure and descending colon. Etiologies include infectious/inflammatory process with ischemia thought to be less likely due to long segment involvement. COPD changes. Patient was transferred to outpatient hospital for facility for GI evaluation. Patient states that he was seen at [facility] and was seen by gastroenterology. He was started on IV antibiotics at home with oral antibiotics. Patient denied taking any antibiotics further. Complains of pain mainly in the left lower quadrant abdominal. 9 out of 10 in severity. Patient has been having ongoing hematochezia and denies any hematemesis. Unable to take oral medications. Otherwise denies any dysuria or hematuria. No chest pain or shortness of breath. Patient present back to ER. Patient denied any recent colonoscopy. EKG on admission showed sinus rhythm. Laboratory data showed WBC 5.2 hemoglobin 12.6 and platelets 294 Sodium 138 potassium 4.2 chloride 108 bicarb is 25 BUN 10 and creatinine 0.80 and blood sugar 102 [place] SR elevated. Lipase level is 54. Review of Systems Constitutional: Patient denies any fever or chills . No generalized weakness or weight loss. Abdomen: Patient complains of nausea, abdominal pain blood in the stool.. Cardiovascular: Patient denies any chest pain or short of breath no palpitations. Respiratory: patient denied any cough or sputum production. No shortness of breath Neurologic: Patient denied any numbness or tingling. no headache. Musculoskeletal: Patient denies any complaints of joint swelling or deformity. Skin: Negative Psychiatric: Negative Endocrine: No heat or cold intolerance. No recent weight gain. Genitourinary: No dysuria or hematuria. All other 14 point ROS negative except the above Past Medical History Past Medical History: Chest Pain / Angina, COPD, CVA/TIA, GERD/Reflux, Hyperlipidemia, Hypertension, Myocardial Infarction ([place]), Osteoarthritis ([place]), Pneumonia Additional Past Medical History / Comment(s): COVID April 2022 and December 2022, multiple MIs, TIA, peripheral vision loss of left eye, white mass on brain in MRI, wears o2 at home 3L at night prn, Last Myocardial Infarction Date:: 2020 History of Any Multi-Drug Resistant Organisms: None Reported Past Surgical History: Heart Catheterization With Stent Additional Past Surgical History / Comment(s): 2 cardiac stents Past Anesthesia/Blood Transfusion Reactions: No Reported Reaction Date of Last Stent Placement:: 2020 Past Psychological History: Anxiety Smoking Status: Former smoker Past Alcohol Use History: None Reported Past Drug Use History: None Reported - Past Family History Father Family Medical History: Myocardial Infarction ([place]) Additional Family Medical History / Comment(s): from [place] Brother(s) Family Medical History: Myocardial Infarction ([place]) Additional Family Medical History / Comment(s): from [place] Medications and Allergies Home Medications Medication Instructions Recorded Confirmed Type FLUoxetine HCL [PROzac] 40 mg PO DAILY 04/26/22 03/23/24 History Isosorbide Mononitrate ER [Imdur] 90 mg PO DAILY 04/26/22 03/23/24 History Nitroglycerin Sl Tabs [Nitrostat] 0.4 mg SL Q5M PRN 04/26/22 03/23/24 History rOPINIRole HCL [Requip] 0.5 mg PO TID 04/26/22 03/23/24 History Ezetimibe [Zetia] 10 mg PO DAILY 04/16/23 03/23/24 History Ipratropium-Albuterol Nebulize 3 ml INHALATION RT-QID 08/13/23 03/23/24 History [Duoneb 0.5 mg-3 mg/3 ml Soln] Ipratropium/Albuter 20-100Mcg 1 puff INHALATION RT-QID 08/13/23 03/23/24 History [Combivent Respimat 20-100Mcg Inhaler] Losartan [Cozaar] 25 mg PO DAILY #30 tab 11/10/23 03/23/24 Rx Tiotropium Br/Olodaterol HCl 2 puff INHALATION RT-DAILY 11/10/23 03/23/24 History [Stiolto Respimat Inhal [place]] Atorvastatin [Lipitor] 80 mg PO DAILY 12/12/23 03/23/24 History Furosemide [Lasix] 20 mg PO DAILY 12/12/23 03/23/24 History Budesonide [Pulmicort] 0.5 mg INHALATION RT-BID #60 ml 12/13/23 03/23/24 Rx Famotidine [Pepcid] 20 mg PO HS PRN 03/18/24 03/23/24 History Meclizine [Antivert] 12.5 mg PO BID PRN 03/18/24 03/23/24 History Metoprolol Tartrate [Lopressor] 50 mg PO BID-W/MEALS 03/18/24 03/23/24 History Ranolazine [Ranexa] 1,000 mg PO BID 03/18/24 03/23/24 History Tamsulosin HCl [Flomax] 0.4 mg PO HS 03/18/24 03/23/24 History Ciprofloxacin HCl [Cipro] 500 mg PO Q12HR 03/23/24 03/23/24 History Ondansetron Odt [Zofran Odt] 4 - 8 mg PO Q4H PRN 03/23/24 03/23/24 History Pantoprazole [Protonix] 40 mg PO BID 03/23/24 03/23/24 History metroNIDAZOLE [Flagyl] 500 mg PO Q8H 03/23/24 03/23/24 History Allergies Allergy/AdvReac Type Severity Reaction Status Date / Time codeine Allergy Anaphylaxis Verified 03/23/24 15:59 peanut Allergy Migraine/Allergy Verified 03/23/24 15:59 testing Physical Exam Vitals: Vital Signs Temp Pulse Pulse Resp BP BP Pulse Ox 03/24/24 09:02 66 15 03/24/24 07:36 98 F 66 15 125/66 95 03/24/24 02:00 97.6 F 61 14 145/77 96 03/23/24 20:00 97.6 F 57 L 14 125/68 94 L 03/23/24 18:42 97.8 F 56 L 18 107/54 98 03/23/24 17:28 90 18 131/70 98 03/23/24 15:46 90 18 128/76 96 03/23/24 13:46 97.6 F 84 18 121/67 96 Intake and Output 03/23/24 03/24/24 03/24/24 22:59 06:59 14:59 Other: Voiding Method Toilet Toilet # Voids 1 1 Weight 78.471 kg PHYSICAL EXAMINATION: Patient is lying in the bed comfortably, no acute distress, awake alert and oriented.. HEENT: Normocephalic. Neck is supple. Pupils reactive. Nostrils clear. Oral cavity is moist. Neck reveals no JVD, carotid bruits, or thyromegaly. CHEST EXAMINATION: Trachea is central. Symmetrical expansion. Bilateral prolonged expiration. No wheezing or rhonchi. Nonlabored breathing. CARDIAC: Normal S1, S2 with no gallops. No murmurs ABDOMEN: Soft. Bowel sounds present. Left-sided abdominal tenderness. No guarding or rigidity.. No organomegaly. No abdominal bruits. Extremities: reveal no edema. No clubbing or cyanosis Neurologically awake, alert, oriented x3 with well-coordinated movements. No focal deficits noted Skin: No rash or skin lesions. Psychiatric: Coperative. Nonsuicidal Musculoskeletal: No joint swelling or deformity. Normal range of motion. Results CBC & Chem 7: 03/24/24 02:36 03/24/24 02:36 Labs: Abnormal Lab Results - Last 24 Hours (Table) 03/23/24 03/23/24 03/23/24 Range/Units 14:47 14:47 14:47 RBC 3.79 L (4.30-5.90) m/uL Hgb 12.6 L (13.0-17.5) gm/dL Hct 36.0 L (39.0-53.0) % APTT 21.1 L (22.0-30.0) sec Chloride 108 H (98-107) mmol/L Carbon Dioxide (22-30) mmol/L Glucose 102 H (74-99) mg/dL Calcium (8.4-10.2) mg/dL Total Protein 6.1 L (6.3-8.2) g/dL Albumin (3.5-5.0) g/dL 03/24/24 03/24/24 Range/Units 02:36 02:36 RBC 3.24 L (4.30-5.90) m/uL Hgb 10.9 L (13.0-17.5) gm/dL Hct 30.7 L (39.0-53.0) % APTT (22.0-30.0) sec Chloride 113 H (98-107) mmol/L Carbon Dioxide 21 L (22-30) mmol/L Glucose (74-99) mg/dL Calcium 7.8 L (8.4-10.2) mg/dL Total Protein 4.5 L (6.3-8.2) g/dL Albumin 2.5 L (3.5-5.0) g/dL Thrombosis Risk Factor Assmnt - DVT/VTE Prophylaxis DVT/VTE Prophylaxis: Pharmacologic Prophylaxis ordered - Choose All That Apply Each Risk Factor Represents 2 Points: Age 61-74 years Thrombosis Risk Factor Assessment Total Risk Factor Score: 2 Thrombosis Risk Factor Assessment Level: Low Risk Assessment and Plan Assessment: Abdominal pain left lower quadrant likely due to long segment colitis involving the splenic flexure and descending colon as per CT of the abdomen pelvis done on 03/18/2024. Status post COPD on home oxygen 3 L via nasal cannula History of CVA/TIA Coronary artery history of multiple MIs and stent placement x 2 GERD Hypertension Hyperlipidemia Osteoarthritis Anxiety/depression Prior history of smoking DVT prophylaxis with heparin subcu Plan: Patient will be continued on IV hydration with normal saline. Started on ant ibiotics with ceftriaxone and metronidazole. Continue pain management and follow-up closely. Continue with home medications and monitor H&H. Patient states that his hematochezia is getting better. Patient will need GI follow-up as an outpatient. But still complaining of significant pain. Continue to follow closely. Time with Patient: Greater than 30
[2024-03-24] MEDS: SODIUM CHLORIDE 0.9% 1,000 ML IV SCH (22:55)
[2024-03-25] MEDS: FORMOTEROL FUMARATE 20 MCG/2 ML NEBU INHALATION SCH (07:34)
[2024-03-25] MEDS ORDERED: IPRATROPIUM 0.5 MG/2.5 ML NEBU INHALATION SCH (08:00)
[2024-03-25] MEDS: LOSARTAN 25 MG TAB PO SCH (09:18)
[2024-03-25] MEDS: ATORVASTATIN 80 MG TAB PO SCH (09:19)
[2024-03-25] MEDS: EZETIMIBE 10 MG TAB PO SCH (09:19)
[2024-03-25 11:22] LABS: Basophils # (A) 0.03 X 10*3/uL (0.00-0.10); Basophils % (A) 0.7 %; Eosinophils # (A) 0.13 X 10*3/uL (0.04-0.35); HCT 30.4 % (39.6-50.0); HGB 10.7 g/dL (13.0-17.0); Lymphocytes # (A) 0.99 X 10*3/uL (0.90-5.00); Lymphocytes % (A) 22.6 %; MCH 33.4 pg (27.0-32.0); MCHC 35.2 g/dL (32.0-37.0); Mean Platelet Volume 9.1 FL (9.5-12.2); Monocytes # (A) 0.57 X 10*3/uL (0.20-1.00); NRBC Per 100 WBC 0 X 10*3/uL (0.00-0.01); Neutrophils # (A) 2.58 X 10*3/uL (1.80-7.70); Neutrophils % (A) 58.9 %; Platelet Count 205 X 10*3/uL (140-440); RDW 12.7 % (11.5-14.5); WBC 4.38 X 10*3/uL (4.50-10.00)
[2024-03-25 11:37] LABS: BUN/Creat Ratio 6.38 Ratio (12.00-20.00); Blood Urea Nitrogen 5.1 mg/dL (9.0-27.0); Calcium 7.6 mg/dL (8.7-10.3); Carbon Dioxide 21.6 mmol/L (21.6-31.8); Chloride 112 mmol/L (96-109); Glucose 108 mg/dL (70-110); Sodium 142 mmol/L (135-145)
--- NOTE | 2024-03-26 06:17 | P.PN ---
Subjective Progress Note Date: 03/25/24 Patient is a 63-year-old male with a past medical history of CVA/TIA, history of CO, coronary artery disease with stent placement, hypertension, hyperlipidemia, osteoarthritis, stage IV COPD on home oxygen at 3 L via nasal cannula, anxiety and prior history of smoking. Patient presents to ER with complaints of abdominal pain for the past 5 days. Patient was initially seen in the ER on 03/18/2024. He presented to ER initially due to blood in his stool. Patient had CT of the abdomen pelvis showed long segment colitis involving the splenic flexure and descending colon. Etiologies include infectious/inflammatory process with ischemia thought to be less likely due to long segment involvement. COPD changes. Patient was transferred to outpatient hospital for facility for GI evaluation. Patient states that he was seen at [facility] and was seen by gastroenterology. He was started on IV antibiotics at home with oral antibiotics. Patient denied taking any antibiotics further. Complains of pain mainly in the left lower quadrant abdominal. 9 out of 10 in severity. Patient has been having ongoing hematochezia and denies any hematemesis. Unable to take oral medications. Oth erwise denies any dysuria or hematuria. No chest pain or shortness of breath. Patient present back to ER. Patient denied any recent colonoscopy. EKG on admission showed sinus rhythm. Laboratory data showed WBC 5.2 hemoglobin 12.6 and platelets 294 Sodium 138 potassium 4.2 chloride 108 bicarb is 25 BUN 10 and creatinine 0.80 and blood sugar 102 Lodine SR elevated. Lipase level is 54. 03/25/2034 Patient seen in follow-up today and continues to report abdominal pain maintained on clear liquids along with antibiotics. Patient was admitted for colitis and continues to report loose bowel movements that have been bloody. Patient reports he was at [facility] and sent there for GI and was seen for a day and told he had colitis and was on IV antibiotics and sent home on oral antibiotics. Patient did not continue taking the medications while at home as he continued to have nausea and vomiting and inability to tolerate oral intake. Per at the bedside patient has been having nausea and vomiting for over a month now with these bowel issues. Patient is afebrile with extensive history of COPD also maintained on DuoNeb treatments and chronic oxygen via nasal cannula. Patient does not appear to be in COPD exacerbation. Home medications reviewed and resumed as appropriate. Continue antinausea medications. review of systems: Constitutional: No reports of fatigue, fever, or chills Cardiovascular: No reports of chest pain or palpitations Respiratory: No reports of shortness of breath or cough GI: reports of nausea, no further vomiting, reports multiple loose stools that are bloody : No reports of dysuria or retention Neurovascular: reports of generalized weakness All medications have been reviewed Physical exam: Patient is lying in the bed, awake alert and oriented x 3, well-developed, elderly appearing HEENT: Normocephalic. Neck is supple. Pupils reactive. Nostrils clear. Oral cavity is moist. Neck reveals no JVD, carotid bruits, or thyromegaly. CHEST EXAMINATION: Trachea is central. Symmetrical expansion. Bilateral prolonged expiration. No wheezing, coarse rhonchi noted. Nonlabored breathing. CARDIAC: S1, S2 are muffled ABDOMEN: Soft. Bowel sounds present. Left-sided abdominal tenderness. Slight guarding on the left on palpation.. No organomegaly. No abdominal bruits. Extremities: reveal no edema. No clubbing or cyanosis Neurologically awake, alert, oriented x3 with well-coordinated movements. No focal deficits noted Skin: No rash or skin lesions. Psychiatric: Cooperative. Non-suicidal Musculoskeletal: No joint swelling or deformity. Normal range of motion. Assessment: Abdominal pain left lower quadrant likely due to long segment colitis involving the splenic flexure and descending colon as per CT of the abdomen pelvis done on 03/18/2024. 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 Started on antibiotics with ceftriaxone and metronidazole. Continue pain management and follow-up closely. Hemoglobin remained stable and will continue to monitor as patient reports his bowel movements are bloody. Transfuse if 7 or less. Pulm medications reviewed and resumed as appropriate Recommend to continue with clear liquids only and some bowel rest with gentle hydration as patient continues to report left quadrant pain. If patient continues to be hospitalized would recommend GI consult on Thursday for further evaluation. Encouraged to increase activity as tolerated at the bedside with multiple questions and concerns that were answered to the best of our ability. reports this has been ongoing for over a month now Due to multiple complex medical issues, overall prognosis is guarded. Recommend monitoring patient over the next few days for improvements in abdominal pain as he is extremely sensitive and reporting 10/10 pain. The impression and plan of care has been dictated by Geovanna Vidal, Nurse Practitioner as directed. Dr. Dorys MD I have performed a history and examination and MDM of this patient, discussed the same with the dictator, and agree with the dictator's assessment and plan as written ,documented as a scribe. Based on total visit time, I have performed more than 50% of the visit. Objective - Vital Signs Vital signs: Vital Signs Temp 97.9 F 03/25/24 07:47 Pulse 81 03/25/24 11:37 Resp 18 03/25/24 07:47 BP 142/80 03/25/24 07:47 Pulse Ox 96 03/25/24 07:47 FiO2 Intake & Output 03/24/24 03/25/24 03/25/24 18:59 06:59 18:59 Intake Total 20 180 Balance 20 180 Intake: Intake, IV Titration 20 Amount cefTRIAXone 2 gm In 20 Sodium Chloride 0.9% 50 ml @ 100 mls/hr IVPB Q24HR [facility] Rx#:[id number] Oral 180 Other: Voiding Method Toilet Toilet # Voids 1 2 - Labs CBC & Chem 7: 03/25/24 06:58 03/25/24 06:58 Labs: Abnormal Lab Results - Last 24 Hours (Table) 03/25/24 03/25/24 Range/Units 06:58 06:58 WBC 4.38 L (4.50-10.00) X 10*3/uL RBC 3.20 L (4.40-5.60) X 10*6/uL Hgb 10.7 L (13.0-17.0) g/dL Hct 30.4 L (39.6-50.0) % MCH 33.4 H (27.0-32.0) pg MPV 9.1 L (9.5-12.2) FL Immature Gran # 0.08 H (0.00-0.04) X 10*3/uL Chloride 112 H (96-109) mmol/L BUN 5.1 L (9.0-27.0) mg/dL BUN/Creatinine Ratio 6.38 L (12.00-20.00) Ratio Calcium 7.6 L (8.7-10.3) mg/dL
[2024-03-26 10:01] LABS: HCT 28.9 % (39.6-50.0); HGB 9.8 g/dL (13.0-17.0); MCH 32.7 pg (27.0-32.0); MCHC 33.9 g/dL (32.0-37.0); MCV 96.3 FL (80.0-97.0); Mean Platelet Volume 9.4 FL (9.5-12.2); NRBC Per 100 WBC 0 X 10*3/uL (0.00-0.01); Platelet Count 217 X 10*3/uL (140-440); RDW 12.8 % (11.5-14.5); WBC 3.55 X 10*3/uL (4.50-10.00)
[2024-03-26 10:02] LABS: Basophils # (A) 0.02 X 10*3/uL (0.00-0.10); Basophils % (A) 0.6 %; Eosinophils # (A) 0.11 X 10*3/uL (0.04-0.35); Eosinophils % (A) 3.1 %; Lymphocytes # (A) 0.93 X 10*3/uL (0.90-5.00); Lymphocytes % (A) 26.2 %; Monocytes % (A) 11.3 %; Neutrophils # (A) 2.05 X 10*3/uL (1.80-7.70); Neutrophils % (A) 57.7 %
[2024-03-26 10:07] LABS: BUN/Creat Ratio 5.56 Ratio (12.00-20.00); Calcium 7.9 mg/dL (8.7-10.3); Carbon Dioxide 23.1 mmol/L (21.6-31.8); Chloride 112 mmol/L (96-109); Glucose 93 mg/dL (70-110); Magnesium 1.6 mg/dL (1.5-2.4); Potassium 4.1 mmol/L (3.5-5.5); Sodium 144 mmol/L (135-145)
[2024-03-26] MEDS ORDERED: MECLIZINE 12.5 MG TAB PO PRN (14:16)
--- NOTE | 2024-03-26 14:39 | XR ---
EXAMINATION TYPE: XR chest 1V portable DATE OF EXAM: 03/26/2024 2:35 PM CLINICAL INDICATION: Male, 63 years old with history of chf; COMPARISON: Chest radiographs from 12/22/2023 TECHNIQUE: XR chest 1V portable Frontal view of the chest. FINDINGS: Lungs/Pleura: There is no evidence of pleural effusion, focal consolidation, or pneumothorax. Pulmonary vascularity: Unremarkable. Heart/mediastinum: Cardiomediastinal silhouette is prominent in size. Musculoskeletal: No acute osseous pathology. IMPRESSION: No evidence for acute heart failure. [facility], , 03/26/2024 2:37 PM
[2024-03-26] MEDS: IOPAMIDOL CONTRAST (ORAL USE) VIAL PO PRN (14:55)
[2024-03-26] MEDS: PIPERACILLIN-TAZOBACTAM 3.375 GM in SODIUM CHLORIDE 0.9% 100 ML IVPB SCH (14:57)
--- NOTE | 2024-03-26 15:10 | PN ---
PROGRESS NOTE DATE OF SERVICE: 03/26/2024 SUBJECTIVE: This is a 63-year-old gentleman, who was admitted with diagnosis of colitis recently, still have diarrhea. The patient was referred to Maryana Ng recently. The patient had ischemic colitis. Apparently, there is no history of any fever, rigors, or chills at this time. PAST MEDICAL HISTORY: Reviewed. REVIEW OF SYSTEMS: A 14-point review is negative except as mentioned earlier. CURRENT MEDICATIONS: Reviewed include Rocephin. Dose and rest of medications noted. PHYSICAL EXAMINATION: VITAL SIGNS: Pulse is 84, blood pressure 120/74, respirations 17. HEENT: Conjunctivae normal. CARDIOVASCULAR: S1, S2. RESPIRATIONS: Breath sounds diminished at the bases. ABDOMEN: Soft, mild diffuse tenderness present. No guarding no rigidity. LEGS: No edema. NERVOUS SYSTEM: Nonfocal. LABORATORY DATA: WBC 3.5, hemoglobin 9.8, sodium 144, calcium is 7.9, albumin is 2.5. ASSESSMENT: 1. Severe abdominal pain possibly colitis versus diverticulitis. 2. Possible ischemic colitis. 3. Chronic obstructive pulmonary disease. 4. Chronic hypoxic respiratory failure. 5. Cerebrovascular accident, transient ischemic attack history. 6. History of multiple myocardial infarctions. 7. Hypertension. 8. Hyperlipidemia. RECOMMENDATIONS: This is a 63-year-old gentleman, who presented with multiple complex medical issues. We will monitor the patient closely. Continue the current medications, continue symptomatic treatment. Otherwise, I would recommend stool C difficile and as well as cultures. I would also recommend repeat CT scan of abdomen also. The patient is also on Flagyl and Rocephin. We will change Rocephin to Zosyn and continue to monitor. Check C difficile. Further recommendations to follow. MMODL / IJN: [id number] /
[2024-03-26] MEDS: HYDROmorphone 0.5 MG/0.5 ML SYRINGE IVP PRN (15:15)
[2024-03-26] MEDS: IPRATROPIUM-ALBUTEROL 3 ML NEB INHALATION SCH (15:49)
[2024-03-26] MEDS: METOPROLOL TARTRATE 50 MG TAB PO SCH (16:43)
--- NOTE | 2024-03-26 17:44 | CT ---
EXAMINATION TYPE: CT abdomen pelvis wo con CT DLP: 1149 mGycm, Automated exposure control for dose reduction was used. DATE OF EXAM: 03/26/2024 4:39 PM COMPARISON: 03/18/2024 CLINICAL INDICATION: Male, 63 years old with history of ischemic colitis??; Abdominal pain and discom fort. TECHNIQUE: Axial CT abdomen pelvis wo con;Sagittal and coronal reformats were created on a separate workstation. Contrast used: mL of , (none if empty) Oral contrast used: with Oral Contrast (none if empty) FINDINGS: LOWER CHEST: Trace bilateral pleural effusions centrilobular emphysema changes. Atherosclerosis of th e coronary arteries. ABDOMEN LIVER: Simple appearing scattered hepatic probable cyst. GALLBLADDER AND BILE DUCTS: Unremarkable. PANCREAS: Unremarkable. SPLEEN: Unremarkable. ADRENAL GLANDS: Unremarkable. KIDNEYS AND URETERS: No evidence of hydronephrosis or renal calculus. The ureters are unremarkable. PELVIS BLADDER: Unremarkable REPRODUCTIVE: Unremarkable. ABDOMEN & PELVIS STOMACH AND BOWEL: Mild circumferential wall thickening with some Fat stranding around the descending colon. No evidence for pneumatosis. No small bowel wall thickening or evidence for obstruction. PERITONEUM/RETROPERITONEUM: No evidence of pneumoperitoneum or free fluid. VASCULATURE: No evidence of aortic aneurysm. No portal venous gas is visualized. MUSCULOSKELETAL: No acute osseous abnormalities LYMPH NODES: No gross evidence for lymphadenopathy. SOFT TISSUE/ABDOMINAL WALL: Unremarkable IMPRESSION: 1. Mild descending colon colitis suggested. No evidence for ischemic colitis definitively visualized . No portal venous gas or pneumatosis. 2. Small hiatal hernia. 3. Trace bilateral pleural effusions. [facility], , 03/26/2024 5:42 PM
[2024-03-27] MEDS: PIPERACILLIN-TAZOBACTAM 3.375 GM in SODIUM CHLORIDE 0.9% 100 ML IVPB SCH (01:48)
[2024-03-27] MEDS: IPRATROPIUM-ALBUTEROL 3 ML NEB INHALATION PRN (04:36)
[2024-03-27] MEDS: FUROSEMIDE 20 MG TAB PO SCH (08:04)
[2024-03-27] MEDS: ONDANSETRON 4 MG/2 ML VIAL IVP PRN (08:21)
[2024-03-27 09:19] LABS: Basophils # (A) 0.03 X 10*3/uL (0.00-0.10); Basophils % (A) 0.7 %; Eosinophils # (A) 0.14 X 10*3/uL (0.04-0.35); Eosinophils % (A) 3.1 %; HCT 30.9 % (39.6-50.0); HGB 10.5 g/dL (13.0-17.0); Lymphocytes # (A) 0.85 X 10*3/uL (0.90-5.00); Lymphocytes % (A) 19.1 %; MCH 32.3 pg (27.0-32.0); MCV 95.1 FL (80.0-97.0); Mean Platelet Volume 9.1 FL (9.5-12.2); Monocytes # (A) 0.43 X 10*3/uL (0.20-1.00); Monocytes % (A) 9.7 %; NRBC Per 100 WBC 0 X 10*3/uL (0.00-0.01); Neutrophils # (A) 2.96 X 10*3/uL (1.80-7.70); Neutrophils % (A) 66.5 %; Platelet Count 225 X 10*3/uL (140-440); RBC 3.25 X 10*6/uL (4.40-5.60); RDW 12.8 % (11.5-14.5); WBC 4.45 X 10*3/uL (4.50-10.00)
[2024-03-27 10:17] LABS: ALT 30 U/L (10-49); AST 28 U/L (14-35); Albumin 3.3 g/dL (3.8-4.9); Alkaline Phosphatase 47 U/L (41-126); BUN/Creat Ratio 6.11 Ratio (12.00-20.00); Blood Urea Nitrogen 5.5 mg/dL (9.0-27.0); Calcium 7.8 mg/dL (8.7-10.3); Carbon Dioxide 21.4 mmol/L (21.6-31.8); Chloride 111 mmol/L (96-109); Globulin 1.5 g/dL (1.6-3.3); Glucose 79 mg/dL (70-110); Potassium 3.9 mmol/L (3.5-5.5); Sodium 142 mmol/L (135-145); Total Bilirubin 0.4 mg/dL (0.3-1.2); Total Protein 4.8 g/dL (6.2-8.2)
--- NOTE | 2024-03-28 03:00 | PN ---
PROGRESS NOTE DATE OF SERVICE: 03/27/2024 SUBJECTIVE: This 63-year-old gentleman who was admitted with severe abdominal pain with possibly colitis versus diverticulitis, is being closely monitored. No chest pain, no palpitation. OBJECTIVE: VITAL SIGNS: Pulse is 78, blood pressure 110/60, respirations 18. HEENT: Conjunctivae normal. CARDIOVASCULAR: S1, S2. ABDOMEN: Soft. Mild diffuse tenderness. NERVOUS SYSTEM: Nonfocal. LABORATORY DATA: WBC 4.45. Otherwise, the CAT scan of the abdomen and pelvis showed mild descending colitis. No evidence for ischemic colitis. The labs are reviewed. ASSESSMENT: 1. Severe abdominal pain with mild descending colitis. 2. Ischemic colitis, unlikely per recent CAT scan. 3. Chronic obstructive pulmonary disease. 4. Chronic hypoxic respiratory failure. 5. Cerebrovascular accident, transient ischemic attack. 6. History of multiple myocardial infarction. 7. Hypertension. 8. Hyperlipidemia. RECOMMENDATIONS: Recommend to continue current management. Continue symptomatic treatment. Otherwise, I would repeat labs. The patient is on IV antibiotics. Further recommendations to follow. See orders for details. MMODL / IJN: [id number] /
[2024-03-28 08:45] LABS: BUN/Creat Ratio 5.22 Ratio (12.00-20.00); Blood Urea Nitrogen 4.7 mg/dL (9.0-27.0); Calcium 7.6 mg/dL (8.7-10.3); Chloride 109 mmol/L (96-109); Glucose 78 mg/dL (70-110); Potassium 3.5 mmol/L (3.5-5.5); Sodium 142 mmol/L (135-145)
[2024-03-28 08:55] LABS: Basophils # (A) 0.02 X 10*3/uL (0.00-0.10); Basophils % (A) 0.5 %; Eosinophils # (A) 0.15 X 10*3/uL (0.04-0.35); Eosinophils % (A) 3.7 %; HCT 29.7 % (39.6-50.0); HGB 10.3 g/dL (13.0-17.0); Lymphocytes # (A) 0.74 X 10*3/uL (0.90-5.00); Lymphocytes % (A) 18.3 %; MCH 32.7 pg (27.0-32.0); MCHC 34.7 g/dL (32.0-37.0); MCV 94.3 FL (80.0-97.0); Mean Platelet Volume 8.9 FL (9.5-12.2); Monocytes # (A) 0.46 X 10*3/uL (0.20-1.00); Monocytes % (A) 11.4 %; NRBC Per 100 WBC 0 X 10*3/uL (0.00-0.01); Neutrophils # (A) 2.64 X 10*3/uL (1.80-7.70); Neutrophils % (A) 65.1 %; Platelet Count 221 X 10*3/uL (140-440); RBC 3.15 X 10*6/uL (4.40-5.60); RDW 12.8 % (11.5-14.5); WBC 4.05 X 10*3/uL (4.50-10.00)
--- NOTE | 2024-03-28 14:49 | P.CONS ---
History of Present Illness - Reason for Consult Consult date: 03/28/24 colitis Requesting physician: Geovanna Vidal - Chief Complaint Abdominal pain - History of Present Illness This is a pleasant 63-year-old male who was recently seen in our emergency department on 03/18/2024 for abdominal pain, diarrhea and hematochezia who underwent CT abdomen pelvis showing concern for long segment of colitis and patient was transferred to [facility]. Hospital reports for requested, he was seen there by gastroenterology who believed colitis was secondary to acute ischemic colitis and discharged the patient the next day. He was started on some IV antibiotics during the hospitalization. He believes his last colonoscopy was couple years ago, he did undergo upper endoscopy with Dr. Griffin in July 2023 for persistent vomiting and hematemesis with findings of mild gastritis small gastric polyps small hiatal hernia and distal esophagitis. He states he was discharged and they did not do anything for him so he came back here because he is still having abdominal pain, diarrhea with blood. States abdominal pain is improving some, he had some nausea and vomiting as well over the weekend states the bleeding has improved. States he is having 1-2 episodes of diarrhea a day. Nonbloody. Does not have much of an appetite and states he is not eating. He had a repeat CAT scan with findings of mild descending colon colitis with no evidence of ischemic colitis definitively visualized. No portal venous gas or pneumatosis. Gastroenterology was consulted for colitis. He has been afebrile, no leukocytosis. He has been on IV Flagyl and Zosyn. Review of Systems REVIEW OF SYSTEMS: CARDIOPULMONARY: No chest pain or shortness of breath. Gastrointestinal: Abdominal pain. No nausea or vomiting. No hematemesis, coffee-ground emesis. Diarrhea with rectal bleeding now resolved GENITOURINARY: No dysuria or hematuria. MUSCULOSKELETAL: Reports normal range of motion., Joint pain. SKIN: No rashes. No jaundice. ENDOCRINE: No chills, fevers. No excessive weight gain or loss. No polydipsia or polyuria. PSYCHIATRIC: Unremarkable. NEUROLOGY: No change in mental status. Denies dizziness, headache. ENT: Vision unremarkable. CONSTITUTIONAL: No recent weight loss. No fever, chills, night sweats. Past Medical History Past Medical History: Chest Pain / Angina, COPD, CVA/TIA, GERD/Reflux, Hyperlipidemia, Hypertension, Myocardial Infarction (MA), Osteoarthritis (OA), Pneumonia Additional Past Medical History / Comment(s): COVID April 2022 and December 2022, multiple MIs, TIA, peripheral vision loss of left eye, white mass on brain in MRI, wears o2 at home 3L at night prn, Last Myocardial Infarction Date:: 2020 History of Any Multi-Drug Resistant Organisms: None Reported Past Surgical History: Heart Catheterization With Stent Additional Past Surgical History / Comment(s): 2 cardiac stents Past Anesthesia/Blood Transfusion Reactions: No Reported Reaction Date of Last Stent Placement:: 2020 Past Psychological History: Anxiety Smoking Status: Former smoker Past Alcohol Use History: None Reported Past Drug Use History: None Reported - Past Family History Father Family Medical History: Myocardial Infarction ([place]) Additional Family Medical History / Comment(s): from [place] Brother(s) Family Medical History: Myocardial Infarction ([place]) Additional Family Medical History / Comment(s): from [place] Medications and Allergies Home Medications Medication Instructions Recorded Confirmed Type FLUoxetine HCL [PROzac] 40 mg PO DAILY 04/26/22 03/23/24 History Isosorbide Mononitrate ER [Imdur] 90 mg PO DAILY 04/26/22 03/23/24 History Nitroglycerin Sl Tabs [Nitrostat] 0.4 mg SL Q5M PRN 04/26/22 03/23/24 History rOPINIRole HCL [Requip] 0.5 mg PO TID 04/26/22 03/23/24 History Ezetimibe [Zetia] 10 mg PO DAILY 04/16/23 03/23/24 History Ipratropium-Albuterol Nebulize 3 ml INHALATION RT-QID 08/13/23 03/23/24 History [Duoneb 0.5 mg-3 mg/3 ml Soln] Ipratropium/Albuter 20-100Mcg 1 puff INHALATION RT-QID 08/13/23 03/23/24 History [Combivent Respimat 20-100Mcg Inhaler] Losartan [Cozaar] 25 mg PO DAILY #30 tab 11/10/23 03/23/24 Rx Tiotropium Br/Olodaterol HCl 2 puff INHALATION RT-DAILY 11/10/23 03/23/24 History [Stiolto Respimat Inhal Brewer] Atorvastatin [Lipitor] 80 mg PO DAILY 12/12/23 03/23/24 History Furosemide [Lasix] 20 mg PO DAILY 12/12/23 03/23/24 History Budesonide [Pulmicort] 0.5 mg INHALATION RT-BID #60 ml 12/13/23 03/23/24 Rx Famotidine [Pepcid] 20 mg PO HS PRN 03/18/24 03/23/24 History Meclizine [Antivert] 12.5 mg PO BID PRN 03/18/24 03/23/24 History Metoprolol Tartrate [Lopressor] 50 mg PO BID-W/MEALS 03/18/24 03/23/24 History Ranolazine [Ranexa] 1,000 mg PO BID 03/18/24 03/23/24 History Tamsulosin HCl [Flomax] 0.4 mg PO HS 03/18/24 03/23/24 History Ciprofloxacin HCl [Cipro] 500 mg PO Q12HR 03/23/24 03/23/24 History Ondansetron Odt [Zofran Odt] 4 - 8 mg PO Q4H PRN 03/23/24 03/23/24 History Pantoprazole [Protonix] 40 mg PO BID 03/23/24 03/23/24 History metroNIDAZOLE [Flagyl] 500 mg PO Q8H 03/23/24 03/23/24 History Allergies Allergy/AdvReac Type Severity Reaction Status Date / Time codeine Allergy Anaphylaxis Verified 03/23/24 15:59 peanut Allergy Migraine/Allergy Verified 03/23/24 15:59 testing Physical Exam Vitals: Vital Signs Temp Pulse Pulse Resp BP Pulse Ox 03/28/24 12:34 76 03/28/24 12:20 72 03/28/24 09:11 76 03/28/24 08:56 76 03/28/24 08:55 76 03/28/24 08:41 76 03/28/24 08:00 98.0 F 73 18 132/69 98 03/28/24 01:20 98.0 F 69 17 122/71 98 03/27/24 20:36 75 03/27/24 20:27 76 03/27/24 20:26 76 03/27/24 20:17 75 03/27/24 18:42 97.6 F 74 18 101/65 98 03/27/24 16:23 76 03/27/24 16:11 76 03/27/24 16:10 76 118/69 Intake and Output 03/27/24 03/28/24 03/28/24 22:59 06:59 14:59 Other: Voiding Method Toilet # Voids 2 2 # Bowel Movements 1 General appearance: The patient is alert, oriented, appears in no acute distress. HET: Head is normocephalic and atraumatic. Conjunctiva pink. Sclera anicteric. Neck: Supple without lymphadenopathy. Trachea midline. Heart: Regular. Lungs: Equal expansion, normal respiratory effort. Abdomen: Soft, left lower quadrant tenderness, nondistended. Skin: No rashes. No jaundice. Extremities: Normal skin color and turgor. No pedal edema. Neurological: No focal deficits. Alert and oriented x3. Results CBC & Chem 7: 03/28/24 05:02 03/28/24 05:02 Labs: Abnormal Lab Results - Last 24 Hours (Table) 03/28/24 03/28/24 Range/Units 05:02 05:02 WBC 4.05 L (4.50-10.00) X 10*3/uL RBC 3.15 L (4.40-5.60) X 10*6/uL Hgb 10.3 L (13.0-17.0) g/dL Hct 29.7 L (39.6-50.0) % MCH 32.7 H (27.0-32.0) pg MPV 8.9 L (9.5-12.2) FL Lymphocytes # 0.74 L (0.90-5.00) X 10*3/uL BUN 4.7 L (9.0-27.0) mg/dL BUN/Creatinine Ratio 5.22 L (12.00-20.00) Ratio Calcium 7.6 L (8.7-10.3) mg/dL Assessment and Plan (1) Colitis Narrative/Plan: 63-year-old diagnosed with possible ischemic colitis a little over a week ago transfer to [facility] treated with antibiotics overnight with improvement in rectal bleeding so patient was discharged. He continues to have abdominal pain and some rectal bleeding so presented back to the hospital. Unclear etiology of colitis could be secondary to infectious versus ischemic. Nonetheless bleeding has improved and patient only having 1-2 episodes of diarrhea however reports continued abdominal pain and patient is only tolerating clear liquid without pain. Will continue current management with IV antibiotics clear liquid diet pain medication and if patient still has no improvement in symptoms will consider colonoscopy. Current Visit: Yes Status: Acute Code(s): K52.9 - NONINFECTIVE GASTROENTERITIS AND COLITIS, UNSPECIFIED SNOMED Code(s): 33697290 (2) Abdominal pain Current Visit: Yes Status: Acute Code(s): R10.9 - UNSPECIFIED ABDOMINAL PAIN SNOMED Code(s): 89173137 Plan: 1. Continue symptomatic and supportive care 2. Clear liquid diet, advance as tolerated 3. Continue antibiotics as ordered 4. Encourage ambulation 5. C. difficile ordered 6. Stool cultures pending Thank you for this consultation, we will continue to follow Dr. Korina Billy I agree with the dictator's note, documented as a scribe by Livier Jung.
--- NOTE | 2024-03-28 16:28 | XR ---
EXAMINATION TYPE: XR abdomen acute w cxr DATE OF EXAM: 03/28/2024 COMPARISON: Chest dated 12/22/2023 HISTORY: Abdominal pain and diarrhea TECHNIQUE: Supine, upright, and left side down lateral decubitus views of the abdomen are obtained. FINDINGS: There is a small left effusion and a small left lower lobe infiltrate. There is no free air beneath t he diaphragm. The bowel gas pattern is unremarkable as there is air throughout nondilated small and large bowel. T here is contrast within the colon. No sizeable air fluid levels. No mass effects are seen. No unusual calcifications. IMPRESSION: 1. Small left lower lobe infiltrate and small left effusion. 2. No free intraperitoneal air. 3. No bowel obstruction. Contrast within the colon [facility], , 03/28/2024 4:25 PM
--- NOTE | 2024-03-29 00:56 | P.PN ---
Subjective Progress Note Date: 03/28/24 Patient is a 63-year-old male with a past medical history of CVA/TIA, history of [place], coronary artery disease with stent placement, hypertension, hyperlipidemia, osteoarthritis, stage IV COPD on home oxygen at 3 L via nasal cannula, anxiety and prior history of smoking. Patient presents to ER with complaints of abdominal pain for the past 5 days. Patient was initially seen in the ER on 03/18/2024. He presented to ER initially due to blood in his stool. Patient had CT of the abdomen pelvis showed long segment colitis involving the splenic flexure and descending colon. Etiologies include infectious/inflammatory process with ischemia thought to be less likely due to long segment involvement. COPD changes. Patient was transferred to outpatient hospital for facility for GI evaluation. Patient states that he was seen at [facility] and was seen by gastroenterology. He was started on IV antibiotics at home with oral antibiotics. Patient denied taking any antibiotics further. Complains of pain mainly in the left lower quadrant abdominal. 9 out of 10 in severity. Patient has been having ongoing hematochezia and denies any hematemesis. Unable to take oral medications. Oth erwise denies any dysuria or hematuria. No chest pain or shortness of breath. Patient present back to ER. Patient denied any recent colonoscopy. EKG on admission showed sinus rhythm. Laboratory data showed WBC 5.2 hemoglobin 12.6 and platelets 294 Sodium 138 potassium 4.2 chloride 108 bicarb is 25 BUN 10 and creatinine 0.80 and blood sugar 102 Lodine SR elevated. Lipase level is 54. and continues to report severe abdominal pain maintained on clear liquids. 4 Patient seen in follow-up today and continues to report abdominal pain maintained on clear liquids along with antibiotics. Patient was admitted for colitis and continues to report loose bowel movements that have been bloody. Patient reports he was at [facility] and sent there for GI and was seen for a day and told he had colitis and was on IV antibiotics and sent home on oral antibiotics. Patient did not continue taking the medications while at home as he continued to have nausea and vomiting and inability to tolerate oral intake. Per at the bedside patient has been having nausea and vomiting for over a month now with these bowel issues. Patient is afebrile with extensive history of COPD also maintained on DuoNeb treatments and chronic oxygen via nasal cannula. Patient does not appear to be in COPD exacerbation. Home medications reviewed and resumed as appropriate. Continue antinausea medications. 03/29/2024 Patient is seen in follow-up today will consult GI and appreciate input and recommendations and patient will continue on IV antibiotics for acute colitis as noted on imaging. Patient continues to report multiple loose bowel movements daily although appears to have lessened in frequency. Patient is maintained on gentle hydration and will follow-up on repeat labs. Encouraged increase activity as tolerated and frequent walking around the halls. review of systems: Constitutional: No reports of fatigue, fever, or chills Cardiovascular: No reports of chest pain or palpitations Respiratory: No reports of shortness of breath or cough GI: reports of nausea, no further vomiting, reports multiple loose stools that continue : No reports of dysuria or retention Neurovascular: reports of generalized weakness All medications have been reviewed Physical exam: Patient is lying in the bed, awake alert and oriented x 3, well-developed, elderly appearing HEENT: Normocephalic. Neck is supple. Pupils reactive. Nostrils clear. Oral cavity is moist. Neck reveals no JVD, carotid bruits, or thyromegaly. CHEST EXAMINATION: Trachea is central. Symmetrical expansion. Bilateral pr olonged expiration. No wheezing, coarse rhonchi noted. Nonlabored breathing. CARDIAC: S1, S2 are muffled ABDOMEN: Soft. Bowel sounds present. Left-sided abdominal tenderness. Slight guarding on the left on palpation.. No organomegaly. No abdominal bruits. Extremities: reveal no edema. No clubbing or cyanosis Neurologically awake, alert, oriented x3 with well-coordinated movements. No focal deficits noted Skin: No rash or skin lesions. Psychiatric: Cooperative. Non-suicidal Musculoskeletal: No joint swelling or deformity. Normal range of motion. Assessment: Abdominal pain left lower quadrant likely due to long segment colitis involving the splenic flexure and descending colon as per CT of the abdomen pelvis done on 03/18/2024. 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 Started on antibiotics with ceftriaxone and metronidazole. Continue pain management and follow-up closely. Hemoglobin remained stable and will continue to monitor as patient reports his bowel movements are bloody. Transfuse if 7 or less. Pulm medications reviewed and resumed as appropriate Recommend to continue with clear liquids only and some bowel rest with gentle hydration as patient continues to report left quadrant pain. Will consult GI and appreciate input and recommendations Encouraged to increase activity as tolerated Due to multiple complex medical issues, overall prognosis is guarded. The impression and plan of care has been dictated by Geovanna Vidal, Nurse Practitioner as directed. Dr. Aubrey MD I have performed a history and examination and MDM of this patient, discussed the same with the dictator, and agree with the dictator's assessment and plan as written ,documented as a scribe. Based on total visit time, I have performed more than 50% of the visit. Objective - Vital Signs Vital signs: Vital Signs Temp 98.0 F 03/28/24 19:06 Pulse 74 03/28/24 20:07 Resp 17 03/28/24 19:06 BP 109/59 03/28/24 19:06 Pulse Ox 95 03/28/24 19:06 FiO2 Intake & Output 03/28/24 03/28/24 03/29/24 06:59 18:59 06:59 Other: Voiding Method Toilet Toilet # Voids 2 1 - Labs CBC & Chem 7: 03/28/24 05:02 03/28/24 05:02 Labs: Abnormal Lab Results - Last 24 Hours (Table) 03/28/24 03/28/24 Range/Units 05:02 05:02 WBC 4.05 L (4.50-10.00) X 10*3/uL RBC 3.15 L (4.40-5.60) X 10*6/uL Hgb 10.3 L (13.0-17.0) g/dL Hct 29.7 L (39.6-50.0) % MCH 32.7 H (27.0-32.0) pg MPV 8.9 L (9.5-12.2) FL Lymphocytes # 0.74 L (0.90-5.00) X 10*3/uL BUN 4.7 L (9.0-27.0) mg/dL BUN/Creatinine Ratio 5.22 L (12.00-20.00) Ratio Calcium 7.6 L (8.7-10.3) mg/dL
[2024-03-29 14:09] VITALS: BMI 20.5
--- NOTE | 2024-03-29 14:26 | P.PN ---
Subjective Progress Note Date: 03/29/24 Principal diagnosis: Colitis This is a pleasant 63-year-old male who was recently seen in our emergency department on 03/18/2024 for abdominal pain, diarrhea and hematochezia who u nderwent CT abdomen pelvis showing concern for long segment of colitis and patient was transferred to [facility]. Hospital reports for requested, he was seen there by gastroenterology who believed colitis was secondary to acute ischemic colitis and discharged the patient the next day. He was started on some IV antibiotics during the hospitalization. He believes his last colonoscopy was couple years ago, he did undergo upper endoscopy with Dr. Griffin in July 2023 for persistent vomiting and hematemesis with findings of mild gastritis small gastric polyps small hiatal hernia and distal esophagitis. He states he was discharged and they did not do anything for him so he came back here because he is still having abdominal pain, diarrhea with blood. States abdominal pain is improving some, he had some nausea and vomiting as well over the weekend states the bleeding has improved. States he is having 1-2 episodes of diarrhea a day. Nonbloody. Does not have much of an appetite and states he is not eating. He had a repeat CAT scan with findings of mild descending colon colitis with no evidence of ischemic colitis definitively visualized. No portal venous gas or pneumatosis. Gastroenterology was consulted for colitis. He has been afebrile, no leukocytosis. He has been on IV Flagyl and Zosyn. 03/29/2024 Patient seen and examined today as a follow-up. Abdominal pain is improving. He has had no bowel movements yesterday or today. No blood per rectum. He is tolerating clear liquid diet. He has been afebrile. And has remained on IV antibiotics. Objective - Vital Signs Vital signs: Vital Signs Temp 98.0 F 03/29/24 08:00 Pulse 72 03/29/24 09:10 Resp 16 03/29/24 08:00 BP 127/82 03/29/24 08:00 Pulse Ox 99 03/29/24 08:54 FiO2 Intake & Output 03/28/24 03/29/24 03/29/24 18:59 06:59 18:59 Intake Total 120 Balance 120 Intake: Oral 120 Other: Voiding Method Toilet Toilet Urinal # Voids 1 2 - Exam General appearance: The patient is alert, oriented, appears in no acute distress. HET: Head is normocephalic and atraumatic. Conjunctiva pink. Sclera anicteric. Neck: Supple without lymphadenopathy. Abdomen: Soft, left lower quadrant tenderness, nondistended with bowel sounds. No guarding or rigidity. Extremities: Normal skin color and turgor. No pedal edema Skin: No rashes, no jaundice Neurological: No focal deficits. Alert and oriented. - Labs CBC & Chem 7: 03/28/24 05:02 03/28/24 05:02 Assessment and Plan (1) Colitis Narrative/Plan: 63-year-old diagnosed with possible ischemic colitis a little over a week ago transfer to [facility] treated with antibiotics overnight with improvement in rectal bleeding so patient was discharged. He continues to have abdominal pain and some rectal bleeding so presented back to the hospital. Unclear etiology of colitis could be secondary to infectious versus ischemic. Nonetheless bleeding has improved and patient only having 1-2 episodes of diarrhea however reports continued abdominal pain and patient is only tolerating clear liquid without pain. Will continue current management with IV antibiotics clear liquid diet pain medication and if patient still has no improvement in symptoms will consider colonoscopy. Current Visit: Yes Status: Acute Code(s): K52.9 - NONINFECTIVE GASTROENTERITIS AND COLITIS, UNSPECIFIED SNOMED Code(s): 41614577 (2) Abdominal pain Current Visit: Yes Status: Acute Code(s): R10.9 - UNSPECIFIED ABDOMINAL PAIN SNOMED Code(s): 70080014 Plan: 1. Continue symptomatic and supportive care 2. Advance to low fiber diet 3. Continue antibiotics as ordered 4. Encourage ambulation 5. C. difficile ordered 6. Stool cultures pending Thank you for this consultation, we will continue to follow Dr. Korina Billy I agree with the dictator's note, documented as a scribe by Livier Jung.
[2024-03-30 08:31] VITALS: BP 160/73; TEMP 97.8
--- NOTE | 2024-03-30 09:49 | P.PN ---
Subjective Progress Note Date: 03/29/24 Patient is a 63-year-old male with a past medical history of CVA/TIA, history of [place], coronary artery disease with stent placement, hypertension, hyperlipidemia, osteoarthritis, stage IV COPD on home oxygen at 3 L via nasal cannula, anxiety and prior history of smoking. Patient presents to ER with complaints of abdominal pain for the past 5 days. Patient was initially seen in the ER on 03/18/2024. He presented to ER initially due to blood in his stool. Patient had CT of the abdomen pelvis showed long segment colitis involving the splenic flexure and descending colon. Etiologies include infectious/inflammatory process with ischemia thought to be less likely due to long segment involvement. COPD changes. Patient was transferred to outpatient hospital for facility for GI evaluation. Patient states that he was seen at [facility] and was seen by gastroenterology. He was started on IV antibiotics at home with oral antibiotics. Patient denied taking any antibiotics further. Complains of pain mainly in the left lower quadrant abdominal. 9 out of 10 in severity. Patient has been having ongoing hematochezia and denies any hematemesis. Unable to take oral medications. Oth erwise denies any dysuria or hematuria. No chest pain or shortness of breath. Patient present back to ER. Patient denied any recent colonoscopy. EKG on admission showed sinus rhythm. Laboratory data showed WBC 5.2 hemoglobin 12.6 and platelets 294 Sodium 138 potassium 4.2 chloride 108 bicarb is 25 BUN 10 and creatinine 0.80 and blood sugar 102 Lodine SR elevated. Lipase level is 54. and continues to report severe abdominal pain maintained on clear liquids. 4 Patient seen in follow-up today and continues to report abdominal pain maintained on clear liquids along with antibiotics. Patient was admitted for colitis and continues to report loose bowel movements that have been bloody. Patient reports he was at [facility] and sent there for GI and was seen for a day and told he had colitis and was on IV antibiotics and sent home on oral antibiotics. Patient did not continue taking the medications while at home as he continued to have nausea and vomiting and inability to tolerate oral intake. Per at the bedside patient has been having nausea and vomiting for over a month now with these bowel issues. Patient is afebrile with extensive history of COPD also maintained on DuoNeb treatments and chronic oxygen via nasal cannula. Patient does not appear to be in COPD exacerbation. Home medications reviewed and resumed as appropriate. Continue antinausea medications. 03/28/2024 Patient is seen in follow-up today will consult GI and appreciate input and recommendations and patient will continue on IV antibiotics for acute colitis as noted on imaging. Patient continues to report multiple loose bowel movements daily although appears to have lessened in frequency. Patient is maintained on gentle hydration and will follow-up on repeat labs. Encouraged increase activity as tolerated and frequent walking around the halls. 03/29/2024 Patient is seen and evaluated in follow-up with no acute overnight issues noted. Patient is currently sitting up in the chair has been up and walking doing relatively well. Patient reports abdominal pain is improving although does have some mild discomfort. Diet is being advanced per GI and if tolerating and watched overnight patient may be discharged home in the next 24 hours with outpatient follow-up in the next 4 weeks for possible colonoscopy. Patient is afebrile with no reported chest pain or shortness of breath. Patient chronically wears O2 and is maintained on 2 to 3 L. review of systems: Constitutional: No reports of fatigue, fever, or chills Cardiovascular: No reports of chest pain or palpitations Respiratory: No reports of shortness of breath or cough GI: No further reports of nausea, no further vomiting, reports multiple loose stools that continue but have lessened in severity and frequency : No reports of dysuria or retention Neurovascular: reports of generalized weakness All medications have been reviewed Physical exam: Patient is sitting up in the chair, awake alert and oriented x 3, well- developed, elderly appearing HEENT: Normocephalic. Neck is supple. Pupils reactive. Nostrils clear. Oral cavity is moist. Neck reveals no JVD, carotid bruits, or thyromegaly. CHEST EXAMINATION: Trachea is central. Symmetrical expansion. Bilateral prolonged expiration. No wheezing, coarse rhonchi noted. Nonlabored breathing. CARDIAC: S1, S2 are muffled ABDOMEN: Soft. Bowel sounds present. Left-sided abdominal tenderness. Less guarding on the left on palpation.. No organomegaly. No abdominal bruits. Extremities: reveal no edema. No clubbing or cyanosis Neurologically awake, alert, oriented x3 with well-coordinated movements. No focal deficits noted Skin: No rash or skin lesions. Psychiatric: Cooperative. Non-suicidal Musculoskeletal: No joint swelling or deformity. Normal range of motion. 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 Continued on antibiotics with ceftriaxone and metronidazole. Continue pain management and follow-up closely. Hemoglobin remained stable and will continue to monitor as patient reports his bowel movements are bloody. Transfuse if 7 or less. Home medications reviewed and resumed as appropriate Diet is being advanced per GI and recommend monitoring overnight for increase diet for any further abdominal pain and may discharge in the next 24 hours. Patient will need outpatient follow-up in the next 4 to 6 weeks to discuss colonoscopy Encouraged to increase activity as tolerated Due to multiple complex medical issues, overall prognosis is guarded. The impression and plan of care has been dictated by Geovanna Vidal, Nurse Practitioner as directed. Dr. Aubrey MD I have performed a history and examination and MDM of this patient, discussed the same with the dictator, and agree with the dictator's assessment and plan as written ,documented as a scribe. Based on total visit time, I have performed more than 50% of the visit. Objective - Vital Signs Vital signs: Vital Signs Temp 98.0 F 03/29/24 08:00 Pulse 72 03/29/24 11:48 Resp 16 03/29/24 08:00 BP 127/82 03/29/24 08:00 Pulse Ox 99 03/29/24 08:54 FiO2 Intake & Output 03/28/24 03/29/24 03/29/24 18:59 06:59 18:59 Intake Total 120 Balance 120 Intake: Oral 120 Other: Voiding Method Toilet Toilet Urinal # Voids 1 2 - Labs CBC & Chem 7: 03/28/24 05:02 03/28/24 05:02 Labs: Microbiology - Last 24 Hours (Table) 03/27/24 15:52 Stool Culture - Preliminary Stool
[2024-03-30 09:52] VITALS: RESP 18
[2024-03-30 10:01] VITALS: PULSE 77
--- NOTE | 2024-03-30 12:22 | P.PN ---
Subjective Progress Note Date: 03/30/24 Principal diagnosis: Colitis This is a pleasant 63-year-old male who was recently seen in our emergency department on 03/18/2024 for abdominal pain, diarrhea and hematochezia who u nderwent CT abdomen pelvis showing concern for long segment of colitis and patient was transferred to [facility]. Hospital reports for requested, he was seen there by gastroenterology who believed colitis was secondary to acute ischemic colitis and discharged the patient the next day. He was started on some IV antibiotics during the hospitalization. He believes his last colonoscopy was couple years ago, he did undergo upper endoscopy with Dr. Griffin in July 2023 for persistent vomiting and hematemesis with findings of mild gastritis small gastric polyps small hiatal hernia and distal esophagitis. He states he was discharged and they did not do anything for him so he came back here because he is still having abdominal pain, diarrhea with blood. States abdominal pain is improving some, he had some nausea and vomiting as well over the weekend states the bleeding has improved. States he is having 1-2 episodes of diarrhea a day. Nonbloody. Does not have much of an appetite and states he is not eating. He had a repeat CAT scan with findings of mild descending colon colitis with no evidence of ischemic colitis definitively visualized. No portal venous gas or pneumatosis. Gastroenterology was consulted for colitis. He has been afebrile, no leukocytosis. He has been on IV Flagyl and Zosyn. 03/29/2024 Patient seen and examined today as a follow-up. Abdominal pain is improving. He has had no bowel movements yesterday or today. No blood per rectum. He is tolerating clear liquid diet. He has been afebrile. And has remained on IV antibiotics. 03/30/2024 Patient seen and examined sitting up in the chair today. States he does not have much of an appetite but he has no nausea or vomiting. No further blood in his stool. He states that he did have maybe 2 small bowel movements yesterday. Abdominal pain is improving. He remains afebrile. Objective - Vital Signs Vital signs: Vital Signs Temp 97.8 F 03/30/24 07:22 Pulse 72 03/30/24 09:51 Resp 18 03/30/24 09:51 BP 160/73 03/30/24 07:22 Pulse Ox 97 03/30/24 09:51 FiO2 Intake & Output 03/29/24 03/30/24 03/30/24 18:59 06:59 18:59 Intake Total 120 0 Balance 120 0 Weight 78.471 kg Intake: Oral 120 0 Other: Voiding Method Toilet Urinal # Voids 2 2 - Exam General appearance: The patient is alert, oriented, appears in no acute distress. HET: Head is normocephalic and atraumatic. Conjunctiva pink. Sclera anicteric. Neck: Supple without lymphadenopathy. Abdomen: Soft, left lower quadrant tenderness, nondistended. Extremities: Normal skin color and turgor. No pedal edema Skin: No rashes, no jaundice Neurological: No focal deficits. Alert and oriented. - Labs CBC & Chem 7: 03/28/24 05:02 03/28/24 05:02 Labs: Microbiology - Last 24 Hours (Table) 03/27/24 15:52 Stool Culture - Preliminary Stool Assessment and Plan (1) Colitis Narrative/Plan: 63-year-old diagnosed with possible ischemic colitis a little over a week ago transfer to [facility] treated with antibiotics overnight with improvement in rectal bleeding so patient was discharged. He continues to have abdominal pain and some rectal bleeding so presented back to the hospital. Unclear etiology of colitis could be secondary to infectious versus ischemic. Nonetheless bleeding has improved and patient only having 1-2 episodes of diarrhea however reports continued abdominal pain and patient is only tolerating clear liquid without pain. Will continue current management with IV antibiotics clear liquid diet pain medication and if patient still has no improvement in symptoms will consider colonoscopy. Current Visit: Yes Status: Acute Code(s): K52.9 - NONINFECTIVE GASTROENTERITIS AND COLITIS, UNSPECIFIED SNOMED Code(s): 78113376 (2) Abdominal pain Current Visit: Yes Status: Acute Code(s): R10.9 - UNSPECIFIED ABDOMINAL PAIN SNOMED Code(s): 86624891 Plan: 1. Continue symptomatic and supportive care 2. Continue low fiber diet. Discussed with patient and eat small portions. 3. Unable to collect stool for C. difficile as to performed 4. Stool cultures negative 5. Diarrhea improved 6. Would continue oral Cipro and Flagyl for 5 days outpatient Thank you for this consultation, patient is cleared for discharge from gastroenterology. Dr. Korina Billy I agree with the dictator's note, documented as a scribe by Livier Jung.
--- NOTE | 2024-03-31 10:20 | P.DS ---
Providers Date of admission: 03/23/24 16:02 Expected date of discharge: 03/30/24 Attending physician: Jamin Burgos Consults: 03/28/24 09:19 Consult Physician Urgent Consulting Provider: Lucila Billy Consult Reason/Comments: colitis Do you want consulting provider notified?: Yes Primary care physician: Yara Wong Hospital Course: Final diagnosis Abdominal pain left lower quadrant likely due to long segment colitis involving the splenic flexure and descending colon as per CT of the abdomen pelvis done on 03/18/2024, improving History of COPD, not in exacerbation Chronic hypoxic respiratory failure due to COPD, maintained on home oxygen 3 L via nasal cannula History of CVA/TIA Coronary artery history of multiple MIs and stent placement x 2 GERD Hypertension Hyperlipidemia Osteoarthritis Anxiety/depression Prior history of smoking DVT prophylaxis with heparin subcu GI prophylaxis Full code Discharge disposition Patient is being discharged in a stable condition with guarded prognosis to home. Patient will follow-up with Dr. Maxi Burgos in the outpatient setting upon discharge. Patient is to continue with oral antibiotics and close outpatient follow-up with GI as scheduled. Total time taken is greater than 35 minutes. Hospital course This is a 63-year-old male who was recently admitted with nausea, vomiting, abdominal pain noted to have colitis of the splenic flexure and descending colon as noted on imaging. Patient maintained on antibiotics and bowel rest with gentle IV hydration and also evaluated by GI as his symptoms persisted. Patient to continue low fiber diet and slowly advance over the next few weeks as tolerated and continue with oral antibiotics on discharge. Patient was seen by a GI doctor at [facility] and sent home on antibiotics although never completed as he was too nauseated and vomiting and unable to tolerate. Patient will continue 5 days of antibiotics in the outpatient setting and has been instructed to follow-up with GI in 3 to 4 weeks to discuss colonoscopy. Patient has been cleared by consultations. Please refer to consultation notes for further HPI. Currently no reports of chest pain, shortness of breath, or palpitations. Patient is afebrile. No reports of nausea or vomiting and patient is tolerating diet. Patient continues to have loose stools at this time although is improving. Patient will be discharged home today. Guarded prognosis and high risk for readmissions given patient's significant comorbidities. Physical exam: Gen: This is a 63-year-old male who is awake, alert and oriented x 3, well- developed, elderly appearing HEENT: Head is atraumatic, normocephalic. Pupils equal, round. Sclerae is anicteric. NECK: Supple. No JVD. No lymphadenopathy. No thyromegaly. LUNGS: Diminished breath sounds bilaterally with no wheezes and coarse rhonchi noted. No intercostal retractions. HEART: Regular rate and rhythm. No murmur. ABDOMEN: Soft. Obese. Bowel sounds are present. No masses. No tenderness. EXTREMITIES: No pedal edema. No calf tenderness. NEUROLOGICAL: Patient is awake, alert and oriented x3. Cranial nerves 2 through 12 are grossly intact. Please refer to medication reconciliation sheet for a list of medications. The impression and plan of care has been dictated by Geovanna Vidal, Nurse Practitioner as directed. Dr. Aubrey MD I have performed a history and examination and MDM of this patient, discussed the same with the dictator, and agree with the dictator's assessment and plan as written ,documented as a scribe. Based on total visit time, I have performed more than 50% of the visit. Patient Condition at Discharge: Fair Plan - Discharge Summary Discharge Rx Participant: Yes New Discharge Prescriptions: New Amoxic-Pot Clav 875-125Mg [Augmentin 875-125] 1 tab PO Q12HR 3 Days #6 tab metroNIDAZOLE [Flagyl] 500 mg PO TID 3 Days #9 tab Continue Isosorbide Mononitrate ER [Imdur] 90 mg PO DAILY FLUoxetine HCL [PROzac] 40 mg PO DAILY Nitroglycerin Sl Tabs [Nitrostat] 0.4 mg SL Q5M PRN PRN Reason: Chest Pain rOPINIRole HCL [Requip] 0.5 mg PO TID Ipratropium/Albuter 20-100Mcg [Combivent Respimat 20-100Mcg Inhaler] 1 puff INHALATION RT-QID Tiotropium Br/Olodaterol HCl [Stiolto Respimat Inhal Twain] 2 puff INHALATION RT-DAILY Losartan [Cozaar] 25 mg PO DAILY #30 tab Budesonide [Pulmicort] 0.5 mg INHALATION RT-BID #60 ml Famotidine [Pepcid] 20 mg PO HS PRN PRN Reason: Gi Upset Ranolazine [Ranexa] 1,000 mg PO BID Ondansetron Odt [Zofran ODT] 4 - 8 mg PO Q4H PRN #20 tab PRN Reason: Nausea And Vomiting Ezetimibe [Zetia] 10 mg PO DAILY Ipratropium-Albuterol Nebulize [Duoneb 0.5 mg-3 mg/3 ml Soln] 3 ml INHALATION RT-QID Atorvastatin [Lipitor] 80 mg PO DAILY Furosemide [Lasix] 20 mg PO DAILY Metoprolol Tartrate [Lopressor] 50 mg PO BID-W/MEALS Tamsulosin HCl [Flomax] 0.4 mg PO HS Meclizine [Antivert] 12.5 mg PO BID PRN PRN Reason: Vertigo Ciprofloxacin HCl [Cipro] 500 mg PO Q12HR metroNIDAZOLE [Flagyl] 500 mg PO Q8H Pantoprazole [Protonix] 40 mg PO BID Discharge Medication List FLUoxetine HCL [PROzac] 40 mg PO DAILY 04/26/22 [History] Isosorbide Mononitrate ER [Imdur] 90 mg PO DAILY 04/26/22 [History] Nitroglycerin Sl Tabs [Nitrostat] 0.4 mg SL Q5M PRN 04/26/22 [History] rOPINIRole HCL [Requip] 0.5 mg PO TID 04/26/22 [History] Ezetimibe [Zetia] 10 mg PO DAILY 04/16/23 [History] Ipratropium-Albuterol Nebulize [Duoneb 0.5 mg-3 mg/3 ml Soln] 3 ml INHALATION RT-QID 08/13/23 [History] Ipratropium/Albuter 20-100Mcg [Combivent Respimat 20-100Mcg Inhaler] 1 puff INHALATION RT-QID 08/13/23 [History] Losartan [Cozaar] 25 mg PO DAILY #30 tab 11/10/23 [Rx] Tiotropium Br/Olodaterol HCl [Stiolto Respimat Inhal Twain] 2 puff INHALATION RT-DAILY 11/10/23 [History] Atorvastatin [Lipitor] 80 mg PO DAILY 12/12/23 [History] Furosemide [Lasix] 20 mg PO DAILY 12/12/23 [History] Budesonide [Pulmicort] 0.5 mg INHALATION RT-BID #60 ml 06/23/24 [Rx] Famotidine [Pepcid] 20 mg PO HS PRN 03/18/24 [History] Meclizine [Antivert] 12.5 mg PO BID PRN 03/18/24 [History] Metoprolol Tartrate [Lopressor] 50 mg PO BID-W/MEALS 03/18/24 [History] Ranolazine [Ranexa] 1,000 mg PO BID 03/18/24 [History] Tamsulosin HCl [Flomax] 0.4 mg PO HS 03/18/24 [History] Ciprofloxacin HCl [Cipro] 500 mg PO Q12HR 03/23/24 [History] Pantoprazole [Protonix] 40 mg PO BID 03/23/24 [History] metroNIDAZOLE [Flagyl] 500 mg PO Q8H 03/23/24 [History] Amoxic-Pot Clav 875-125Mg [Augmentin 875-125] 1 tab PO Q12HR 3 Days #6 tab 03/30/24 [Rx] Ondansetron Odt [Zofran ODT] 4 - 8 mg PO Q4H PRN #20 tab 03/30/24 [Rx] metroNIDAZOLE [Flagyl] 500 mg PO TID 3 Days #9 tab 03/30/24 [Rx] Follow up Appointment(s)/Referral(s): Lucila Billy MD [STAFF PHYSICIAN] - 4 Weeks Yara Wong MD [Primary Care Provider] - 1-2 days Patient Instructions/Handouts: Infectious Colitis (ED) Activity/Diet/Wound Care/Special Instructions: Activity limited until follow-up Follow-up with primary care provider on discharge Follow-up with GI in the outpatient setting in the past 3 to 4 weeks Continue antibiotics until finished Continue low fiber diet over the next few days to weeks Advance as tolerated Recommend small meals and not overeating Discharge Disposition: HOME SELF-CARE
== END 2024-03-30 13:24 | disposition home or self-care (01) | DRG 392 ==
LOC: EC 13:45 → 1SOBS 16:02 → 6NMEDSUR 03-24 18:46
PROVIDERS: ADMIT Hospitalist; ATTEND Hospitalist
DX: K52.9 Noninfective gastroenteritis and colitis, unspecified (principal); J96.11 Chronic respiratory failure with hypoxia; J90 Pleural effusion, not elsewhere classified; I25.10 Atherosclerotic heart disease of native coronary artery without angina pectoris; J44.9 Chronic obstructive pulmonary disease, unspecified; Z88.5 Allergy status to narcotic agent; Z91.010 Allergy to peanuts; H54.62 Unqualified visual loss, left eye, normal vision right eye; I10 Essential (primary) hypertension; I25.2 Old myocardial infarction; K21.9 Gastro-esophageal reflux disease without esophagitis; F32.A Depression, unspecified; F41.9 Anxiety disorder, unspecified; E78.5 Hyperlipidemia, unspecified; M19.90 Unspecified osteoarthritis, unspecified site; Z79.899 Other long term (current) drug therapy; Z82.49 Family history of ischemic heart disease and other diseases of the circulatory system; Z86.16 Personal history of COVID-19; Z86.73 Personal history of transient ischemic attack (TIA), and cerebral infarction without residual deficits; Z87.891 Personal history of nicotine dependence; Z95.5 Presence of coronary angioplasty implant and graft; Z99.81 Dependence on supplemental oxygen; Z87.01 Personal history of pneumonia (recurrent)
CPT/HCPCS: 36415; 71045; 74022; 74176; 80048; 80053; 82150; 83605; 83690; 83735; 84100; 84145; 84484; 85025; 85610; 85652; 85730; 86140; 87045; 87046; 93005; 94640; 94760; 96361; 96374; 96375; 99285

== ENCOUNTER 2024-05-02 20:48 | Emergency (ER) | payer MEDICARE ==
--- NOTE | 2024-05-02 21:14 | ED ---
Abdominal Pain HPI - General Chief Complaint: Abdominal Pain Stated Complaint: Abdominal Pain, NVD Time Seen by Provider: 05/02/24 21:03 Source: patient, EMS Mode of arrival: EMS Limitations: no limitations - History of Present Illness Initial Comments: Patient is a 64-year-old man who presents for evaluation of abdominal pain. The patient states that he has been having pains, nausea and vomiting, going back a couple of months. He has been evaluated here for similar over that time. The patient states that in fact he is scheduled to have colonoscopy tomorrow morning. He started the colon prep today around 3 PM which increased the pain, which is now mainly in the left lower quadrant and he also started having vomiting and is not tolerating the colon prep. He has not noted any bloody or coffee-ground emesis. No bloody stools now. Patient denies change in urination. No fever or chills. MD Complaint: abdominal pain Onset/Timin -: month(s) Location: LLQ Radiation: none Migration to: no migration Severity: moderate Quality: aching Consistency: intermittent Improves With: nothing Worsens With: nothing Associated Symptoms: nausea, vomiting - Related Data Home Medications Medication Instructions Recorded Confirmed FLUoxetine HCL [PROzac] 40 mg PO DAILY 04/26/22 04/29/24 Isosorbide Mononitrate ER [Imdur] 90 mg PO DAILY 04/26/22 04/29/24 Nitroglycerin Sl Tabs [Nitrostat] 0.4 mg SL Q5M PRN 04/26/22 04/29/24 rOPINIRole HCL [Requip] 0.5 mg PO TID 04/26/22 04/29/24 Ezetimibe [Zetia] 10 mg PO DAILY 04/16/23 04/29/24 Ipratropium-Albuterol Nebulize 3 ml INHALATION RT-QID 08/13/23 04/29/24 [Duoneb 0.5 mg-3 mg/3 ml Soln] Tiotropium Br/Olodaterol HCl 2 puff INHALATION RT-DAILY 11/10/23 04/29/24 [Stiolto Respimat Inhal Brow[place]] Atorvastatin [Lipitor] 80 mg PO DAILY 12/12/23 04/29/24 Furosemide [Lasix] 20 mg PO DAILY 12/12/23 04/29/24 Famotidine [Pepcid] 20 mg PO HS PRN 03/18/24 04/29/24 Meclizine [Antivert] 12.5 mg PO BID PRN 03/18/24 04/29/24 Metoprolol Tartrate [Lopressor] 25 mg PO BID-W/MEALS 03/18/24 04/29/24 Ranolazine [Ranexa] 1,000 mg PO BID 03/18/24 04/29/24 Tamsulosin HCl [Flomax] 0.4 mg PO HS 03/18/24 04/29/24 Pantoprazole [Protonix] 40 mg PO BID 03/23/24 04/29/24 Aspirin 81 mg PO DAILY 04/29/24 04/29/24 Ketorolac 0.5% Ophth Soln [Acular 1 drops RIGHT EYE QID 04/29/24 04/29/24 0.5%] Previous Rx's Medication Instructions Recorded Losartan [Cozaar] 25 mg PO DAILY #30 tab 11/10/23 Budesonide [Pulmicort] 0.5 mg INHALATION RT-BID #60 ml 12/13/23 Allergies Allergy/AdvReac Type Severity Reaction Status Date / Time codeine Allergy Anaphylaxis Verified 05/03/24 10:33 peanut Allergy Migraine/Allergy Verified 05/03/24 10:33 testing Review of Systems ROS Statement: Those systems with pertinent positive or pertinent negative responses have been documented in the HPI. ROS Other: All systems not noted in ROS Statement are negative. Constitutional: Reports: weakness. Denies: fever, chills Respiratory: Reports: dyspnea (Chronic), wheezes (Chronic). Denies: cough Cardiovascular: Denies: chest pain, palpitations, edema, syncope Gastrointestinal: Reports: as per HPI, abdominal pain, nausea, vomiting. Denies: diarrhea, hematemesis, melena, hematochezia Genitourinary: Denies: dysuria, hematuria, testicular pain Musculoskeletal: Denies: back pain Skin: Denies: rash Neurological: Denies: headache, weakness, numbness Past Medical History Past Medical History: Chest Pain / Angina, COPD, CVA/TIA, GERD/Reflux, Hyperlipidemia, Hypertension, Myocardial Infarction ([place]), Osteoarthritis ([place]), Pneumonia Additional Past Medical History / Comment(s): COVID April 2022 and December 2022, multiple MIs, recent TIA, peripheral vision loss left eye, white mass on brain in MRI, wears O2 at home 3L at night & sometimes during day prn, dizziness, recent adm. to [facility] for colitis, still having N/V @times, abd. pain @times, weight loss Last Myocardial Infarction Date:: 2020 History of Any Multi-Drug Resistant Organisms: None Reported Past Surgical History: Heart Catheterization With Stent Additional Past Surgical History / Comment(s): 2 cardiac stents, iggy cataracts removed Past Anesthesia/Blood Transfusion Reactions: No Reported Reaction Date of Last Stent Placement:: 2020 Past Psychological History: Anxiety Smoking Status: Former smoker - Past Family History Father Family Medical History: Myocardial Infarction ([place]) Additional Family Medical History / Comment(s): from [place] Brother(s) Family Medical History: Myocardial Infarction ([place]) Additional Family Medical History / Comment(s): from [place] General Exam Limitations: no limitations General appearance: alert, in no apparent distress Head exam: Present: atraumatic, normocephalic Eye exam: Present: normal appearance. Absent: scleral icterus, conjunctival injection Neck exam: Present: normal inspection Respiratory exam: Present: wheezes, decreased breath sounds. Absent: respiratory distress, rales, rhonchi, stridor, chest wall tenderness, accessory muscle use, prolonged expiratory Cardiovascular Exam: Present: regular rate, normal rhythm, normal heart sounds. Absent: systolic murmur, diastolic murmur, rubs, gallop GI/Abdominal exam: Present: distended, tenderness. Absent: guarding, rebound, rigid, mass, pulsatile mass, hernia Extremities exam: Present: normal inspection, normal capillary refill. Absent: pedal edema, calf tenderness Back exam: Present: normal inspection. Absent: CVA tenderness (R), CVA tenderness (L) Neurological exam: Present: alert Skin exam: Present: warm, dry, intact, normal color. Absent: rash Course Vital Signs 05/02/24 05/03/24 05/03/24 20:50 01:04 02:17 Temperature 97.8 F 98.5 F Pulse Rate 84 80 76 Respiratory 22 20 24 Rate Blood Pressure 149/82 119/70 119/70 O2 Sat by Pulse 96 98 98 Oximetry Medical Decision Making - Medical Decision Making The patient had CT scan of the abdomen and pelvis that I interpreted as negative for free air, obstruction, or other acute surgical condition. Was pt. sent in by a medical professional or institution ([facility], [employer], urgent care, hospital, or care home...) When possible be specific @ -[No] Did you speak to anyone other than the patient for history (EMS, parent, family, police, friend...)? What history was obtained from this source @ -[No] Did you review nursing and triage notes (agree or disagree)? Why? @ -[I reviewed and agree with nursing and triage notes] Were old charts reviewed (outside hosp., previous admission, EMS record, old EKG, old radiological studies, urgent care reports/EKG's, care home records)? Report findings @ -[No old charts were reviewed] Differential Diagnosis (chest pain, altered mental status, abdominal pain women, abdominal pain men, vaginal bleeding, weakness, fever, dyspnea, syncope, headache, dizziness, GI bleed, back pain, seizure, CVA, palpatations, mental health, musculoskeletal)? @ -[Differential Abdominal Pain Men: Appendicitis, cholecystitis, diverticulosis, ischemic bowel, pancreatitis, hepatitis, UTI, gastroenteritis, AAA, incarcerated hernia, bowel obstruction, constipation, inflammatory bowel, hepatitis, peptic ulcer disease, splenic infarction, perforated viscus, testicular torsion, this is not meant to be an all-inclusive list EKG interpreted by me (3pts min.). @ -[As above] X-rays interpreted by me (1pt min.). @ -[None done] CT interpreted by me (1pt min.). @ -[I interpreted as above U/S interpreted by me (1pt. min.). @ -[None done] What testing was considered but not performed or refused? (CT, X-rays, U/S, labs)? Why? @ -[None] What meds were considered but not given or refused? Why? @ -[None] Did you discuss the management of the patient with other professionals (professionals i.e. [facility], [employer], lab, RT, psych nurse, child welfare social worker, supervisor curing room, teacher, technology officer, pillowcase folder)? Give summary @ -[No] Was smoking cessation discussed for >3mins.? @ -[No] Was critical care preformed (if so, how long)? @ -[No] Were there social determinants of health that impacted care today? How? (Homelessness, low income, unemployed, alcoholism, drug addiction, transportation, low edu. Level, literacy, decrease access to med. care, skilled nursing, rehab)? @ -[No] Was there de-escalation of care discussed even if they declined (Discuss DNR or withdrawal of care, Hospice)? DNR status @ -[No] What co-morbidities impacted this encounter? (DM, HTN, Smoking, COPD, CAD, Cancer, CVA, ARF, Chemo, Hep., AIDS, mental health diagnosis, sleep apnea, morbid obesity)? @ -[None] Was patient admitted / discharged? Hospital course, mention meds given and route, prescriptions, significant lab abnormalities, going to OR and other pertinent info. @ -[Patient is 64-year-old man presenting with abdominal pain after starting to take the bowel prep for a colonoscopy. The patient's exam and workup not revealing presence of acute surgical condition. The patient does have follow-up with gastroenterology already established, and will have him keep his appointment. Discussed return parameters as well as the appropriate follow-up. Undiagnosed new problem with uncertain prognosis? @ -[No] Drug Therapy requiring intensive monitoring for toxicity (Heparin, Nitro, Insulin, Cardizem)? @ -[No] Were any procedures done? @ -[No] Diagnosis/symptom? @ -[Acute abdominal pain Acute, or Chronic, or Acute on Chronic? @ -[Acute Uncomplicated (without systemic symptoms) or Complicated (systemic symptoms)? @ -[Uncomplicated Side effects of treatment? @ -[No] Exacerbation, Progression, or Severe Exacerbation? @ -[No] Poses a threat to life or bodily function? How? (Chest pain, [place], [place], pneumonia, PE, COPD, DKA, ARF, appy, cholecystitis, CVA, Diverticulitis, Homicidal, Suicidal, threat to staff... and all critical care pts) @ -[No] - Lab Data Result diagrams: 05/02/24 21:30 05/02/24 21:30 Lab Results 05/02/24 05/02/24 05/02/24 Range/Units 21:30 21:30 21:30 WBC 7.2 (3.8-10.6) k/uL RBC 4.13 L (4.30-5.90) m/uL Hgb 13.3 (13.0-17.5) gm/dL Hct 38.8 L (39.0-53.0) % MCV 94.1 (80.0-100.0) fL MCH 32.2 (25.0-35.0) pg MCHC 34.2 (31.0-37.0) g/dL RDW 12.7 (11.5-15.5) % Plt Count 195 (150-450) k/uL MPV 7.9 Neutrophils % 76 % Lymphocytes % 14 % Monocytes % 8 % Eosinophils % 1 % Basophils % 0 % Neutrophils # 5.5 (1.3-7.7) k/uL Lymphocytes # 1.0 (1.0-4.8) k/uL Monocytes # 0.5 (0-1.0) k/uL Eosinophils # 0.0 (0-0.7) k/uL Basophils # 0.0 (0-0.2) k/uL Sodium 136 L (137-145) mmol/L Potassium 4.4 (3.5-5.1) mmol/L Chloride 105 (98-107) mmol/L Carbon Dioxide 27 (22-30) mmol/L Anion Gap 4 mmol/L BUN 16 (9-20) mg/dL Creatinine 0.98 (0.66-1.25) mg/dL Est GFR (CKD-EPI)AfAm >90 (>60 ml/min/1.73 sqM) Est GFR (CKD-EPI)NonAf 81 (>60 ml/min/1.73 sqM) Glucose 94 (74-99) mg/dL Plasma Lactic Acid Kuldeep 0.9 (0.7-2.0) mmol/L Calcium 8.5 (8.4-10.2) mg/dL Total Bilirubin 1.0 (0.2-1.3) mg/dL AST 24 (17-59) U/L ALT 23 (4-49) U/L Alkaline Phosphatase 59 (38-126) U/L Troponin I (0.000-0.034) ng/mL Total Protein 6.4 (6.3-8.2) g/dL Albumin 4.0 (3.5-5.0) g/dL Amylase 31 (30-110) U/L Lipase 27 (23-300) U/L 05/02/24 Range/Units 21:30 WBC (3.8-10.6) k/uL RBC (4.30-5.90) m/uL Hgb (13.0-17.5) gm/dL Hct (39.0-53.0) % MCV (80.0-100.0) fL MCH (25.0-35.0) pg MCHC (31.0-37.0) g/dL RDW (11.5-15.5) % Plt Count (150-450) k/uL MPV Neutrophils % % Lymphocytes % % Monocytes % % Eosinophils % % Basophils % % Neutrophils # (1.3-7.7) k/uL Lymphocytes # (1.0-4.8) k/uL Monocytes # (0-1.0) k/uL Eosinophils # (0-0.7) k/uL Basophils # (0-0.2) k/uL Sodium (137-145) mmol/L Potassium (3.5-5.1) mmol/L Chloride (98-107) mmol/L Carbon Dioxide (22-30) mmol/L Anion Gap mmol/L BUN (9-20) mg/dL Creatinine (0.66-1.25) mg/dL Est GFR (CKD-EPI)AfAm (>60 ml/min/1.73 sqM) Est GFR (CKD-EPI)NonAf (>60 ml/min/1.73 sqM) Glucose (74-99) mg/dL Plasma Lactic Acid Kuldeep (0.7-2.0) mmol/L Calcium (8.4-10.2) mg/dL Total Bilirubin (0.2-1.3) mg/dL AST (17-59) U/L ALT (4-49) U/L Alkaline Phosphatase (38-126) U/L Troponin I 0.015 (0.000-0.034) ng/mL Total Protein (6.3-8.2) g/dL Albumin (3.5-5.0) g/dL Amylase (30-110) U/L Lipase (23-300) U/L - EKG Data -: EKG Interpreted by Al EKG shows normal: sinus rhythm, axis (Normal), intervals (Normal), QRS complexes (Normal) Rate: normal (Rate 82 bpm) Interpretation: nonspecific ST-T wave changes Disposition Clinical Impression: Abdominal pain Disposition: HOME SELF-CARE Condition: Good Instructions (If sedation given, give patient instructions): Abdominal Pain (ED) Is patient prescribed a controlled substance at d/c from ED?: No Referrals: Yara Wong MD [Primary Care Provider] - 1-2 days
[2024-05-02 21:37] LABS: Basophils % (A) 0 %; Eosinophils % (A) 1 %; HCT 38.8 % (39.0-53.0); HGB 13.3 gm/dL (13.0-17.5); Lymphocytes % (A) 14 %; MCH 32.2 pg (25.0-35.0); MCHC 34.2 g/dL (31.0-37.0); MCV 94.1 fL (80.0-100.0); Mean Platelet Volume 7.9; Monocytes # (A) 0.5 k/uL (0-1.0); Monocytes % (A) 8 %; Neutrophils # (A) 5.5 k/uL (1.3-7.7); Neutrophils % (A) 76 %; Platelet Count 195 k/uL (150-450); RBC 4.13 m/uL (4.30-5.90); RDW 12.7 % (11.5-15.5); WBC 7.2 k/uL (3.8-10.6)
[2024-05-02 21:49] LABS: ALT 23 U/L (4-49); AST 24 U/L (17-59); African American GFR (CKD) >90 (>60 ml/min/1.73 sqM); Alkaline Phosphatase 59 U/L (38-126); Amylase 31 U/L (30-110); Anion Gap 4 mmol/L; Blood Urea Nitrogen 16 mg/dL (9-20); Calcium 8.5 mg/dL (8.4-10.2); Carbon Dioxide 27 mmol/L (22-30); Chloride 105 mmol/L (98-107); Glucose 94 mg/dL (74-99); Lipase 27 U/L (23-300); Non-African American GFR(CKD) 81 (>60 ml/min/1.73 sqM); Potassium 4.4 mmol/L (3.5-5.1); Sodium 136 mmol/L (137-145); Total Protein 6.4 g/dL (6.3-8.2)
--- NOTE | 2024-05-02 21:58 | CT ---
EXAMINATION TYPE: CT abdomen pelvis wo con DATE OF EXAM: 05/02/2024 9:48 PM COMPARISON: None. CLINICAL INDICATION: Male, 64 years old with history of abdominal pain, LLQ, LLQ abdominal pain. N/V after colonoscopy prep. Weakness and dizziness. TECHNIQUE: Axial images were obtained from above the diaphragm to the pubic rami in the axial plane a t 5 mm thick sections. Reconstructed images are reviewed on the computer in the coronal plane. CONTRAST: mL of . Study performed without Oral Contrast DLP: 598.2 mGycm, Automated exposure control for dose reduction was used. FINDINGS: Limited CT sections are obtained the lung bases. There is some pulmonary fibrosis or paraseptal emph ysema along the posterior lung bases. CT ABDOMEN: Liver: Couple small cyst may be within the liver Spleen: Normal Pancreas: Normal Adrenal glands: The adrenal glands are normal. Gallbladder: Normal Kidneys: No masses are evident. No hydronephrosis is present. No cysts are present. No renal stone s are evident Aorta: Vascular calcification is within the aorta. Inferior vena cava: Normal. CT PELVIS: Loops of bowel within the abdomen and pelvis are normal. This study is without oral contrast limi ting bowel evaluation. Scattered diverticuli are within redundant sigmoid colon. No suspicious wall t hickening is evident. No suspicious fluid filled or fluid levels are evident within bowel loops Appendix: Normal as visualized. Urinary bladder: Normal. Genitourinary structures: Prostate is normal Osseous structures: No suspicious lytic or sclerotic lesions. IMPRESSION: 1. No suspicious acute abnormality. Diverticulosis without acute diverticulitis is present. Fecal de bris is within the colon. [facility], , 05/02/2024 9:56 PM
[2024-05-03 01:09] VITALS: BP 119/70
[2024-05-03 02:21] VITALS: PULSE 76; RESP 24; TEMP 98.5
== END 2024-05-03 02:21 | disposition home or self-care (01) ==
LOC: EC 20:48
DX: R10.32 Left lower quadrant pain (principal); Z88.5 Allergy status to narcotic agent; Z91.018 Allergy to other foods; Z87.891 Personal history of nicotine dependence; Z86.16 Personal history of COVID-19; Z86.73 Personal history of transient ischemic attack (TIA), and cerebral infarction without residual deficits; Z95.5 Presence of coronary angioplasty implant and graft
CPT/HCPCS: 36415; 74176; 80053; 82150; 83605; 83690; 84484; 85025; 99285

== ENCOUNTER 2024-05-03 09:59 | Day surgery (SDC) | payer MEDICARE ==
[2024-05-03 10:45] VITALS: TEMP 98
[2024-05-03] MEDS: LACTATED RINGERS 1,000 ML IV SCH (10:46)
[2024-05-03] MEDS: IV FLUID CONTINUATION 1,000 ML IV ONE (10:46)
[2024-05-03] MEDS ORDERED: PROPOFOL 10 MG/ML 20 ML VIAL IV ONE (11:31)
--- NOTE | 2024-05-03 12:15 | P.PCN ---
Date of Procedure: 05/03/24 Procedure(s) Performed: BRIEF HISTORY: Patient is a 64-year-old pleasant white male scheduled for an elective colonoscopy as a part of evaluation of left lower quadrant abdominal pain diarrhea and rectal bleeding for the last few weeks duration. He was recently admitted to hospital and was treated for possible infectious colitis. CAT scan revealed thickening of the left colon. PROCEDURE PERFORMED: Colonoscopy with biopsy. PREOPERATIVE DIAGNOSIS: Abdominal pain, diarrhea and rectal bleeding. IV sedation per Anesthesia. PROCEDURE: After informed consent was obtained, the patient, was brought into the endoscopy unit. IV sedation was administered by Anesthesia under continuous monitoring. Digital rectal examination was normal. Initially the Olympus CF-160 flexible video colonoscope was then inserted in the rectum, gradually advanced into the cecum without any difficulty. Careful examination was performed as the scope was gradually being withdrawn. Ileocecal valve and the appendiceal orifice were visualized and appeared normal. Prep was poor throughout the colon. Mucosa of the cecum, normal. He descending colon with scattered erosions noted and biopsies were done from this area. Rest of the ascending colon, transverse colon, descending colon, sigmoid colon, and rectum appeared normal. Rectum there was a 3 mm polyp that was removed by cold biopsy. Retroflexion was performed in the rectum and no lesions were seen. The patient tolerated the procedure well. IMPRESSION: Poor prep Scattered erosions of the ascending colon s/p biopsy 3 mm rectal polyp status post cold biopsy Rest of the colon appeared normal RECOMMENDATIONS: Findings of this examination were discussed with the patient as well as his family.. He was advised to follow the biopsy results. He will be seen in the office in 1 to 2 weeks.
[2024-05-03 12:40] VITALS: BP 121/76; PULSE 78; RESP 16
== END 2024-05-03 12:47 | disposition home or self-care (01) ==
LOC: ORWHC2ENDO 09:59
PROVIDERS: ATTEND Internal Medicine Gastroenterology
DX: K52.9 Noninfective gastroenteritis and colitis, unspecified (principal); K63.3 Ulcer of intestine; K62.1 Rectal polyp; I10 Essential (primary) hypertension; I25.10 Atherosclerotic heart disease of native coronary artery without angina pectoris; I25.2 Old myocardial infarction; Z95.5 Presence of coronary angioplasty implant and graft; E78.5 Hyperlipidemia, unspecified; J44.9 Chronic obstructive pulmonary disease, unspecified; F41.9 Anxiety disorder, unspecified; Z79.51 Long term (current) use of inhaled steroids; Z79.899 Other long term (current) drug therapy; Z86.73 Personal history of transient ischemic attack (TIA), and cerebral infarction without residual deficits
CPT/HCPCS: 88305; 45380; J2704

== ENCOUNTER 2024-07-06 12:22 | Observation (INO) | payer MEDICARE ==
--- NOTE | 2024-07-06 12:34 | ED ---
General Adult HPI - General Stated complaint: CP Time Seen by Provider: 07/06/24 12:24 Source: patient, family, RN notes reviewed Mode of arrival: EMS Limitations: no limitations - History of Present Illness Initial comments: Patient is a 64-year-old male present to the emergency department with chest discomfort. Onset of symptoms was last night. Discomfort has been severe but improved with nitroglycerin. Patient did take a nitroglycerin recently and discomfort is currently 2/10. Discomfort is described as tightness. Patient does get associated dyspnea. No calf pain or leg swelling. - Related Data Home Medications Medication Instructions Recorded Confirmed FLUoxetine HCL [PROzac] 40 mg PO DAILY 04/26/22 07/06/24 Isosorbide Mononitrate ER [Imdur] 90 mg PO DAILY 04/26/22 07/06/24 Nitroglycerin Sl Tabs [Nitrostat] 0.4 mg SL Q5M PRN 04/26/22 07/06/24 rOPINIRole HCL [Requip] 0.5 mg PO TID 04/26/22 07/06/24 Ezetimibe [Zetia] 10 mg PO DAILY 04/16/23 07/06/24 Tiotropium Br/Olodaterol HCl 2 puff INHALATION RT-DAILY 11/10/23 07/06/24 [Stiolto Respimat Inhal [place]] Atorvastatin [Lipitor] 80 mg PO DAILY 12/12/23 07/06/24 Furosemide [Lasix] 20 mg PO DAILY 12/12/23 07/06/24 Famotidine [Pepcid] 20 mg PO HS PRN 03/18/24 07/06/24 Meclizine [Antivert] 12.5 mg PO QID PRN 03/18/24 07/06/24 Metoprolol Tartrate [Lopressor] 50 mg PO BID-W/MEALS 03/18/24 07/06/24 Ranolazine [Ranexa] 1,000 mg PO BID 03/18/24 07/06/24 Tamsulosin HCl [Flomax] 0.4 mg PO HS 03/18/24 07/06/24 Pantoprazole [Protonix] 40 mg PO BID 03/23/24 07/06/24 Aspirin 81 mg PO DAILY 04/29/24 07/06/24 Albuterol Sulfate [Albuterol 2 puff INHALATION RT-QID PRN 07/06/24 07/06/24 Sulfate Hfa] predniSONE 10 mg PO DAILY 07/06/24 07/06/24 Previous Rx's Medication Instructions Recorded Losartan [Cozaar] 25 mg PO DAILY #30 tab 11/10/23 Allergies Allergy/AdvReac Type Severity Reaction Status Date / Time codeine Allergy Anaphylaxis Verified 07/06/24 12:34 peanut Allergy Migraine/Allergy Verified 07/06/24 12:34 testing Review of Systems ROS Statement: Those systems with pertinent positive or pertinent negative responses have been documented in the HPI. ROS Other: All systems not noted in ROS Statement are negative. Constitutional: Denies: fever Eyes: Denies: eye pain ENT: Denies: ear pain Respiratory: Reports: as per HPI. Denies: cough Cardiovascular: Reports: as per HPI, chest pain Endocrine: Denies: fatigue Gastrointestinal: Denies: abdominal pain Musculoskeletal: Denies: back pain Past Medical History Past Medical History: Chest Pain / Angina, COPD, CVA/TIA, GERD/Reflux, Hyperlipidemia, Hypertension, Myocardial Infarction ([place]), Osteoarthritis (OA), Pneumonia Additional Past Medical History / Comment(s): COVID April 2022 and December 2022, multiple MIs, recent TIA, peripheral vision loss left eye, white mass on brain in MRI, wears O2 at home 3L at night & sometimes during day prn, dizziness, recent adm. to [facility] for colitis, still having N/V @times, abd. pain @times, weight loss Last Myocardial Infarction Date:: 2020 History of Any Multi-Drug Resistant Organisms: None Reported Past Surgical History: Heart Catheterization With Stent Additional Past Surgical History / Comment(s): 2 cardiac stents, iggy cataracts removed Past Anesthesia/Blood Transfusion Reactions: No Reported Reaction Date of Last Stent Placement:: 2020 Past Psychological History: Anxiety Smoking Status: Former smoker - Past Family History Father Family Medical History: Myocardial Infarction ([place]) Additional Family Medical History / Comment(s): from [place] Brother(s) Family Medical History: Myocardial Infarction ([place]) Additional Family Medical History / Comment(s): from [place] General Exam Limitations: no limitations General appearance: alert, in no apparent distress Head exam: Present: normocephalic Eye exam: Present: normal appearance Neck exam: Present: normal inspection Respiratory exam: Present: normal lung sounds bilaterally. Absent: chest wall tenderness Cardiovascular Exam: Present: regular rate, normal rhythm, normal heart sounds Expanded Peripheral pulses: 2+: Radial (R), Radial (L), Posterior Tibialis (R), Posterior Tibialis (L) GI/Abdominal exam: Present: soft. Absent: tenderness Extremities exam: Present: normal inspection. Absent: pedal edema, calf tenderness Neurological exam: Present: alert Psychiatric exam: Present: normal affect, normal mood Skin exam: Present: normal color Course Vital Signs 07/06/24 07/06/24 12:23 13:00 Temperature 97.5 F L Pulse Rate 78 72 Respiratory 22 18 Rate Blood Pressure 143/84 149/86 O2 Sat by Pulse 97 97 Oximetry EKG Findings - EKG Results: EKG: interpreted by GERARDO, sinus rhythm, normal axis, normal QRS, normal ST/T Medical Decision Making - Medical Decision Making Was pt. sent in by a medical professional or institution (, PA, ANALYSIS SPECIALIST, urgent care, hospital, or intermediate...) When possible be specific @ -No Did you speak to anyone other than the patient for history (EMS, parent, family, police, friend...)? What history was obtained from this source @ -Family is present and provides additional history that Dr. Fonseca is worried about a partial blockage and had mentioned possible catheterization if patient has symptoms Did you review nursing and triage notes (agree or disagree)? Why? @ -I reviewed and agree with nursing and triage notes Were old charts reviewed (outside hosp., previous admission, EMS record, old EKG, old radiological studies, urgent care reports/EKG's, intermediate records)? Report findings @ -No old charts were reviewed Differential Diagnosis (chest pain, altered mental status, abdominal pain women, abdominal pain men, vaginal bleeding, weakness, fever, dyspnea, syncope, headache, dizziness, GI bleed, back pain, seizure, CVA, palpatations, mental health, musculoskeletal)? @ -Differential Chest Pain: Stable Angina, Unstable Angina, STEMI, NSTEMI Aortic Dissection, Pneumothorax, Musculoskeletal, Esophageal Spasm GERD, Cholecystitis, Pancreatitis, Zoster, this is not meant to be an all-inclusive list. EKG interpreted by me (3pts min.). @ -As above X-rays interpreted by me (1pt min.). @ -Chest x-ray shows no acute process CT interpreted by me (1pt min.). @ -None done U/S interpreted by me (1pt. min.). @ -None done What testing was considered but not performed or refused? (CT, X-rays, U/S, labs)? Why? @ -None What meds were considered but not given or refused? Why? @ -None Did you discuss the management of the patient with other professionals (professionals i.e. Dr., PA, ANALYSIS SPECIALIST, lab, RT, psych nurse, social work supervisor, planning intern, teacher, air force senior officer, case assistant)? Give summary @ -Case was discussed with Dr. Castellanos who will admit covering Dr. Anne. Was smoking cessation discussed for >3mins.? @ -No Was critical care preformed (if so, how long)? @ -No Were there social determinants of health that impacted care today? How? (Homelessness, low income, unemployed, alcoholism, drug addiction, transportation, low edu. Level, literacy, decrease access to med. care, [place] [facility], rehab)? @ -No Was there de-escalation of care discussed even if they declined (Discuss DNR or withdrawal of care, Hospice)? DNR status @ -No What co-morbidities impacted this encounter? (DM, HTN, Smoking, COPD, CAD, Cancer, CVA, ARF, Chemo, Hep., AIDS, mental health diagnosis, sleep apnea, morbid obesity)? @ -History of previous cardiac disease Was patient admitted / discharged? Hospital course, mention meds given and route, prescriptions, significant lab abnormalities, going to OR and other pertinent info. @ -Patient presents with chest discomfort that improved with nitroglycerin. Initial evaluation unremarkable. Patient reevaluated and updated. Patient to be admitted with cardiac consult. Admission orders written. Undiagnosed new problem with uncertain prognosis? @ -No Drug Therapy requiring intensive monitoring for toxicity (Heparin, Nitro, Insulin, Cardizem)? @ -No Were any procedures done? @ -No Diagnosis/symptom? @ -Chest pain Acute, or Chronic, or Acute on Chronic? @ -Acute Uncomplicated (without systemic symptoms) or Complicated (systemic symptoms)? @ -Default Side effects of treatment? @ -No Exacerbation, Progression, or Severe Exacerbation? @ -No Poses a threat to life or bodily function? How? (Chest pain, [place], PA, pneumonia, PE, COPD, DKA, ARF, appy, cholecystitis, CVA, Diverticulitis, Homicidal, Suicidal, threat to staff... and all critical care pts) @ -Threat to cardiac function - Lab Data Result diagrams: 07/06/24 12:35 07/06/24 12:35 Lab Results 07/06/24 07/06/24 07/06/24 Range/Units 12:35 12:35 12:35 WBC 5.8 (3.8-10.6) k/uL RBC 4.74 (4.30-5.90) m/uL Hgb 14.3 (13.0-17.5) gm/dL Hct 43.0 (39.0-53.0) % MCV 90.6 (80.0-100.0) fL MCH 30.2 (25.0-35.0) pg MCHC 33.4 (31.0-37.0) g/dL RDW 13.1 (11.5-15.5) % Plt Count 212 (150-450) k/uL MPV 6.7 Neutrophils % 68 % Lymphocytes % 20 % Monocytes % 7 % Eosinophils % 2 % Basophils % 1 % Neutrophils # 3.9 (1.3-7.7) k/uL Lymphocytes # 1.2 (1.0-4.8) k/uL Monocytes # 0.4 (0-1.0) k/uL Eosinophils # 0.1 (0-0.7) k/uL Basophils # 0.0 (0-0.2) k/uL PT 11.2 (10.0-12.5) sec INR 1.0 (<1.2) APTT 23.4 (22.0-30.0) sec D-Dimer 0.65 H (<0.60) mg/L FEU Sodium 138 (137-145) mmol/L Potassium 4.8 (3.5-5.1) mmol/L Chloride 103 (98-107) mmol/L Carbon Dioxide 28 (22-30) mmol/L Anion Gap 7 mmol/L BUN 12 (9-20) mg/dL Creatinine 1.03 (0.66-1.25) mg/dL Est GFR (CKD-EPI)AfAm 88 (>60 ml/min/1.73 sqM) Est GFR (CKD-EPI)NonAf 76 (>60 ml/min/1.73 sqM) Glucose 135 H (74-99) mg/dL Calcium 9.6 (8.4-10.2) mg/dL Magnesium 2.0 (1.6-2.3) mg/dL Total Bilirubin 0.6 (0.2-1.3) mg/dL AST 26 (17-59) U/L ALT 32 (4-49) U/L Alkaline Phosphatase 65 (38-126) U/L Troponin I (0.000-0.034) ng/mL NT-Pro-B Natriuret Pep 59 pg/mL Total Protein 6.9 (6.3-8.2) g/dL Albumin 4.0 (3.5-5.0) g/dL 07/06/24 Range/Units 12:35 WBC (3.8-10.6) k/uL RBC (4.30-5.90) m/uL Hgb (13.0-17.5) gm/dL Hct (39.0-53.0) % MCV (80.0-100.0) fL MCH (25.0-35.0) pg MCHC (31.0-37.0) g/dL RDW (11.5-15.5) % Plt Count (150-450) k/uL MPV Neutrophils % % Lymphocytes % % Monocytes % % Eosinophils % % Basophils % % Neutrophils # (1.3-7.7) k/uL Lymphocytes # (1.0-4.8) k/uL Monocytes # (0-1.0) k/uL Eosinophils # (0-0.7) k/uL Basophils # (0-0.2) k/uL PT (10.0-12.5) sec INR (<1.2) APTT (22.0-30.0) sec D-Dimer (<0.60) mg/L FEU Sodium (137-145) mmol/L Potassium (3.5-5.1) mmol/L Chloride (98-107) mmol/L Carbon Dioxide (22-30) mmol/L Anion Gap mmol/L BUN (9-20) mg/dL Creatinine (0.66-1.25) mg/dL Est GFR (CKD-EPI)AfAm (>60 ml/min/1.73 sqM) Est GFR (CKD-EPI)NonAf (>60 ml/min/1.73 sqM) Glucose (74-99) mg/dL Calcium (8.4-10.2) mg/dL Magnesium (1.6-2.3) mg/dL Total Bilirubin (0.2-1.3) mg/dL AST (17-59) U/L ALT (4-49) U/L Alkaline Phosphatase (38-126) U/L Troponin I <0.012 (0.000-0.034) ng/mL NT-Pro-B Natriuret Pep pg/mL Total Protein (6.3-8.2) g/dL Albumin (3.5-5.0) g/dL Disposition Clinical Impression: Chest pain Disposition: ADMITTED IP TO THIS HOSP Is patient prescribed a controlled substance at d/c from ED?: No Referrals: Yara Wong MD [Primary Care Provider] - 1-2 days Time of Disposition: 14:07
[2024-07-06] MEDS: ASPIRIN 81 MG PO STA (12:53)
[2024-07-06] MEDS: NITROGLYCERIN OINT 1 INCH/GM PACKET TOPICAL STA (12:55)
[2024-07-06 13:02] LABS: Basophils % (A) 1 %; Eosinophils # (A) 0.1 k/uL (0-0.7); Eosinophils % (A) 2 %; HGB 14.3 gm/dL (13.0-17.5); Lymphocytes # (A) 1.2 k/uL (1.0-4.8); Lymphocytes % (A) 20 %; MCH 30.2 pg (25.0-35.0); MCHC 33.4 g/dL (31.0-37.0); MCV 90.6 fL (80.0-100.0); Mean Platelet Volume 6.7; Monocytes # (A) 0.4 k/uL (0-1.0); Monocytes % (A) 7 %; Neutrophils # (A) 3.9 k/uL (1.3-7.7); Neutrophils % (A) 68 %; Platelet Count 212 k/uL (150-450); RBC 4.74 m/uL (4.30-5.90); RDW 13.1 % (11.5-15.5); WBC 5.8 k/uL (3.8-10.6)
--- NOTE | 2024-07-06 13:05 | XR ---
EXAMINATION TYPE: XR chest 2V DATE OF EXAM: 07/06/2024 12:52 PM COMPARISON: 03/26/2024 CLINICAL INDICATION: Male, 64 years old with history of Chest Pain, TECHNIQUE: XR chest 2V view(s) obtained. FINDINGS: The heart size is normal. The pulmonary vasculature is normal. The lungs are clear. IMPRESSION: 1. No acute pulmonary process. [facility], , 07/06/2024 1:03 PM
[2024-07-06 13:17] LABS: Prothrombin Time 11.2 sec (10.0-12.5)
[2024-07-06 13:18] LABS: Partial Thromboplastin Time 23.4 sec (22.0-30.0)
[2024-07-06 13:21] LABS: ALT 32 U/L (4-49); AST 26 U/L (17-59); African American GFR (CKD) 88 (>60 ml/min/1.73 sqM); Alkaline Phosphatase 65 U/L (38-126); Anion Gap 7 mmol/L; Blood Urea Nitrogen 12 mg/dL (9-20); Calcium 9.6 mg/dL (8.4-10.2); Carbon Dioxide 28 mmol/L (22-30); Chloride 103 mmol/L (98-107); Glucose 135 mg/dL (74-99); Non-African American GFR(CKD) 76 (>60 ml/min/1.73 sqM); Potassium 4.8 mmol/L (3.5-5.1); Sodium 138 mmol/L (137-145); Total Bilirubin 0.6 mg/dL (0.2-1.3); Total Protein 6.9 g/dL (6.3-8.2)
[2024-07-06 13:28] LABS: NT-Pro-B-Type Natriuretic Pept 59 pg/mL
[2024-07-06] MEDS ORDERED: MECLIZINE 12.5 MG TAB PO PRN (14:02)
[2024-07-06] MEDS ORDERED: NITROGLYCERIN SL TABS 0.4 MG TAB SUBLINGUAL PRN (14:08)
[2024-07-06] MEDS: PANTOPRAZOLE 40 MG TABLET PO SCH (15:15)
[2024-07-06] MEDS: ALBUTEROL HFA INHALER INHALATION PRN (18:34)
[2024-07-06] MEDS: FAMOTIDINE 20 MG TAB PO PRN (18:43)
[2024-07-06] MEDS: METOPROLOL TARTRATE 50 MG TAB PO SCH (18:43)
[2024-07-06] MEDS: NITROGLYCERIN OINT 1 INCH/GM PACKET TOPICAL SCH (18:43)
[2024-07-06] MEDS: TAMSULOSIN 0.4 MG CAP.ER.24H PO SCH (20:22)
[2024-07-06] MEDS: RANOLAZINE 500 MG TAB.ER.12H PO SCH (20:22)
[2024-07-07] MEDS ORDERED: ALPRAZolam 0.5 MG TAB PO PRN (08:32)
[2024-07-07] MEDS ORDERED: ALPRAZolam 0.25 MG TAB PO PRN (08:32)
[2024-07-07] MEDS ORDERED: NITROGLYCERIN SL TABS 0.4 MG TAB SUBLINGUAL PRN (08:32)
[2024-07-07] MEDS: FORMOTEROL FUMARATE 20 MCG/2 ML NEBU INHALATION SCH (08:34)
[2024-07-07] MEDS: TIOTROPIUM 2.5 MCG INHALER INHALATION SCH (08:35)
[2024-07-07] MEDS: ATORVASTATIN 80 MG TAB PO SCH (08:53)
[2024-07-07] MEDS: ASPIRIN 81 MG PO SCH (08:53)
[2024-07-07] MEDS: FLUoxetine HCL 20 MG CAP PO SCH (08:55)
[2024-07-07] MEDS: ISOSORBIDE MONONITRATE ER 30 MG TAB.ER.24H PO SCH (08:55)
[2024-07-07] MEDS: EZETIMIBE 10 MG TAB PO SCH (08:55)
[2024-07-07] MEDS: FUROSEMIDE 20 MG TAB PO SCH (08:55)
[2024-07-07] MEDS: predniSONE 10 MG TAB PO SCH (08:55)
[2024-07-07] MEDS: ASPIRIN 325 MG TAB PO STA (08:55)
[2024-07-07] MEDS: LOSARTAN 25 MG TAB PO SCH (08:56)
[2024-07-07] MEDS: ATORVASTATIN 80 MG TAB PO STA (08:56)
[2024-07-07] MEDS ORDERED: ASPIRIN 325 MG TAB PO SCH (09:00)
[2024-07-07] MEDS ORDERED: ASPIRIN 81 MG PO SCH (09:00)
--- NOTE | 2024-07-07 09:54 | P.CRDCN ---
History of Present Illness History of present illness: HISTORY OF PRESENT ILLNESS: This is a 64-year-old male with a past medical history significant for COPD on home oxygen, hypertension, hyperlipidemia, and CAD with previous stenting x 2 in [place]. Patient follows in the office with Dr. Fonseca. We have been asked to see the patient in consultation for chest pain. Patient examined at the bedside. Patient presented to the hospital with a chief complaint of chest discomfort. Patient states he started having chest pain yesterday that woke him up out of his sleep. He states that he took nitro 3 times with relief of the pain but it continued to come back. He states the pain is not exertionally related. He reports associated shortness of breath. Patient states he has been having these episodes of chest discomfort for a while now and they are starting to happen more often. Each episode is relieved with nitro. He does report having a cough at home without sputum production. He reports nausea without vomiting. He states that he is a former cigarette smoker. He does utilize home oxygen. DIAGNOSTICS: - EKG reveals sinus mechanism without signs of acute ischemia. - Chest xray negative for acute process - Laboratory data: WBC 5.8. Hemoglobin 14.3. Platelet count 212. Sodium 138. Potassium 4.8. BUN 12. Creatinine 1.03. Troponin negative x 3 - Current home cardiac medications include aspirin 81 mg daily, atorvastatin 80 mg daily, Zetia 10 mg daily, Lasix 20 mg daily, Imdur 90 mg daily, losartan 25 mg daily, metoprolol titrate 50 mg twice a day, Ranexa 1000 mg twice a day. - Most recent echocardiogram obtained in November 2023 revealing ejection fraction 55 to 60%, mild pulmonary hypertension, mild tricuspid regurgitation, mild mitral digitation, no evidence of shunting by contrast bubble study - Cardiac catheterization history: April 2023 revealing proximal circumflex 50 to 60% stenosis, ostial OM 380% stenosis of a previously jailed OM 3 branch, 2030% stenosis, elevated left-sided filling pressures. iFR normal of proximal circumflex. REVIEW OF SYSTEMS: At the time of my exam: CONSTITUTIONAL: Denies fever or chills. HEENT: Denies blurred vision, vision changes, or eye pain. Denies hemoptysis CARDIOVASCULAR: Denies chest pain. Denies orthopnea. Denies PND. Denies palpitations RESPIRATORY: Denies shortness of breath. GASTROINTESTINAL: Denies abdominal pain. Denies nausea or vomiting. HEMATOLOGIC: Denies bleeding disorders. GENITOURINARY: Denies any blood in urine. SKIN: Denies pruitis. Denies rash. PHYSICAL EXAM: VITAL SIGNS: Reviewed. GENERAL: Well-developed in no acute distress. HEENT: Head is normocephalic. Pupils are equal, round. Sclerae anicteric. Mucous membranes of the mouth are moist. Neck supple. No JVD or thyromegaly LUNGS: Respirations even and unlabored. Lungs essentially clear to auscultation bilaterally. HEART: Regular rate and rhythm. S1 and S2 heard. ABDOMEN: Soft. Nondistended. Nontender. EXTREMITIES: Normal range of motion. No clubbing or cyanosis. Peripheral pulses intact. No lower extremity edema NEUROLOGIC: Awake and alert. Oriented x 3. ASSESSMENT: Chest pain Coronary artery disease with previous stenting, proximal RCA and distal circ umflex Hypertension Hyperlipidemia COPD Chronic hypoxic respiratory failure on home oxygen PLAN: An acute coronary event has been ruled out Resume home cardiac medications Patient to undergo cardiac catheterization today with Dr. Fonseca Further recommendations pending patient course Nurse practitioner note has been reviewed by physician. Signing provider agrees with the documented findings, assessment, and plan of care documented by [employer] as a scribe. Past Medical History Past Medical History: Chest Pain / Angina, COPD, CVA/TIA, GERD/Reflux, Hyperlip idemia, Hypertension, Myocardial Infarction ([place]), Osteoarthritis (OA), Pneumonia Additional Past Medical History / Comment(s): COVID April 2022 and December 2022, multiple MIs, recent TIA, peripheral vision loss left eye, white mass on brain in MRI, wears O2 at home 3L at night & sometimes during day prn, dizziness, recent adm. to [facility] for colitis, still having N/V @times, abd. pain @times, weight loss Last Myocardial Infarction Date:: 2020 History of Any Multi-Drug Resistant Organisms: None Reported Past Surgical History: Heart Catheterization With Stent Additional Past Surgical History / Comment(s): 2 cardiac stents, iggy cataracts removed Past Anesthesia/Blood Transfusion Reactions: No Reported Reaction Date of Last Stent Placement:: 2020 Past Psychological History: Anxiety Smoking Status: Former smoker Past Alcohol Use History: None Reported Additional Past Alcohol Use History / Comment(s): quit smoking 10 yrs. ago, 1ppd or less Past Drug Use History: None Reported - Past Family History Father Family Medical History: Myocardial Infarction ([place]) Additional Family Medical History / Comment(s): from [place] Brother(s) Family Medical History: Myocardial Infarction ([place]) Additional Family Medical History / Comment(s): from [place] Medications and Allergies Home Medications Medication Instructions Recorded Confirmed Type FLUoxetine HCL [PROzac] 40 mg PO DAILY 04/26/22 07/06/24 History Isosorbide Mononitrate ER [Imdur] 90 mg PO DAILY 04/26/22 07/06/24 History Nitroglycerin Sl Tabs [Nitrostat] 0.4 mg SL Q5M PRN 04/26/22 07/06/24 History rOPINIRole HCL [Requip] 0.5 mg PO TID 04/26/22 07/06/24 History Ezetimibe [Zetia] 10 mg PO DAILY 04/16/23 07/06/24 History Losartan [Cozaar] 25 mg PO DAILY #30 tab 11/10/23 07/06/24 Rx Tiotropium Br/Olodaterol HCl 2 puff INHALATION RT-DAILY 11/10/23 07/06/24 History [Stiolto Respimat Inhal [place]] Atorvastatin [Lipitor] 80 mg PO DAILY 12/12/23 07/06/24 History Furosemide [Lasix] 20 mg PO DAILY 12/12/23 07/06/24 History Famotidine [Pepcid] 20 mg PO HS PRN 03/18/24 07/06/24 History Meclizine [Antivert] 12.5 mg PO QID PRN 03/18/24 07/06/24 History Metoprolol Tartrate [Lopressor] 50 mg PO BID-W/MEALS 03/18/24 07/06/24 History Ranolazine [Ranexa] 1,000 mg PO BID 03/18/24 07/06/24 History Tamsulosin HCl [Flomax] 0.4 mg PO HS 03/18/24 07/06/24 History Pantoprazole [Protonix] 40 mg PO BID 03/23/24 07/06/24 History Aspirin 81 mg PO DAILY 04/29/24 07/06/24 History Albuterol Sulfate [Albuterol 2 puff INHALATION RT-QID PRN 07/06/24 07/06/24 History Sulfate Hfa] predniSONE 10 mg PO DAILY 07/06/24 07/06/24 History Allergies Allergy/AdvReac Type Severity Reaction Status Date / Time codeine Allergy Anaphylaxis Verified 07/06/24 12:34 peanut Allergy Migraine/Allergy Verified 07/06/24 12:34 testing Physical Exam Vitals: Vital Signs Temp Pulse Pulse Resp BP BP BP 07/07/24 08:56 62 07/07/24 08:35 64 07/07/24 07:15 97.6 F 62 18 106/57 07/07/24 01:00 97.3 F L 64 20 148/74 07/06/24 20:22 97.7 F 60 17 110/66 07/06/24 17:30 97.6 F 69 16 115/66 07/06/24 17:00 69 19 116/74 07/06/24 16:00 65 19 109/74 07/06/24 15:00 69 17 110/77 07/06/24 14:00 71 17 127/90 07/06/24 13:00 72 18 149/86 07/06/24 12:23 97.5 F L 78 22 143/84 Pulse Ox 07/07/24 08:56 07/07/24 08:35 99 07/07/24 07:15 95 07/07/24 01:00 99 07/06/24 20:22 97 07/06/24 17:30 100 07/06/24 17:00 97 07/06/24 16:00 97 07/06/24 15:00 97 07/06/24 14:00 98 07/06/24 13:00 97 07/06/24 12:23 97 Intake and Output 07/06/24 07/07/24 07/07/24 22:59 06:59 14:59 Other: # Voids 1 1 Weight 74.843 kg Results 07/06/24 12:35 07/06/24 12:35 Cardiac Enzymes 07/06/24 07/06/24 07/06/24 Range/Units 12:35 12:35 15:10 AST 26 (17-59) U/L Troponin I <0.012 <0.012 (0.000-0.034) ng/mL 07/06/24 Range/Units 19:13 AST (17-59) U/L Troponin I <0.012 (0.000-0.034) ng/mL Coagulation 07/06/24 Range/Units 12:35 PT 11.2 (10.0-12.5) sec APTT 23.4 (22.0-30.0) sec CBC 07/06/24 Range/Units 12:35 WBC 5.8 (3.8-10.6) k/uL RBC 4.74 (4.30-5.90) m/uL Hgb 14.3 (13.0-17.5) gm/dL Hct 43.0 (39.0-53.0) % Plt Count 212 (150-450) k/uL Comprehensive Metabolic Panel 07/06/24 Range/Units 12:35 Sodium 138 (137-145) mmol/L Potassium 4.8 (3.5-5.1) mmol/L Chloride 103 (98-107) mmol/L Carbon Dioxide 28 (22-30) mmol/L BUN 12 (9-20) mg/dL Creatinine 1.03 (0.66-1.25) mg/dL Glucose 135 H (74-99) mg/dL Calcium 9.6 (8.4-10.2) mg/dL AST 26 (17-59) U/L ALT 32 (4-49) U/L Alkaline Phosphatase 65 (38-126) U/L Total Protein 6.9 (6.3-8.2) g/dL Albumin 4.0 (3.5-5.0) g/dL Current Medications Generic Name Dose Route Start Last Admin Trade Name Freq PRN Reason Stop Dose Admin Albuterol Sulfate 2 puff 07/06/24 14:02 07/07/24 08:35 Albuterol Hfa Inhaler INHALATION 2 puff RT-QID PRN Administration Shortness Of Breath Alprazolam 0.25 mg 07/07/24 08:32 Alprazolam 0.25 Mg Tab PO Q6HR PRN Mild Anxiety Alprazolam 0.5 mg 07/07/24 08:32 Alprazolam 0.5 Mg Tab PO Q6HR PRN Moderate Anxiety Aspirin 81 mg 07/07/24 09:00 07/07/24 08:53 Aspirin 81 Mg PO Not Given DAILY MAIKEL Atorvastatin Calcium 80 mg 07/07/24 09:00 07/07/24 08:53 Atorvastatin 80 Mg Tab PO Not Given DAILY MAIKEL Ezetimibe 10 mg 07/07/24 09:00 07/07/24 08:55 Ezetimibe 10 Mg Tab PO 10 mg DAILY MAIKEL Administration Famotidine 20 mg 07/06/24 14:02 07/06/24 18:43 Famotidine 20 Mg Tab PO 20 mg HS PRN Administration GI Upset Fluoxetine HCl 40 mg 07/07/24 09:00 07/07/24 08:55 Fluoxetine Hcl 20 Mg Cap PO 40 mg DAILY MAIKEL Administration Formoterol Fumarate 20 mcg 07/07/24 08:00 07/07/24 08:34 Formoterol Fumarate 20 Mcg/2 Ml Nebu INHALATION 20 mcg RT-BID MAIKEL Administration Furosemide 20 mg 07/07/24 09:00 07/07/24 08:55 Furosemide 20 Mg Tab PO 20 mg DAILY MAIKEL Administration Heparin Sodium (Porcine) 10, 1,001 mls @ 999 mls/hr 07/08/24 07:00 000 unit/ Sodium Chloride IRRIGATION 07/08/24 23:00 ONCE PRN INTRA-OP Heparin Sodium (Porcine) 2,500 250.5 mls @ 250 mls/hr 07/08/24 07:00 unit/ Sodium Chloride IRRIGATION 07/08/24 23:00 ONCE PRN INTRA-OP Sodium Chloride 1,000 ml/ IV 1,000 mls @ 74.843 mls/hr 07/07/24 08:45 Solution IV .[id number] MAIKEL 1 ML/KG/HR Isosorbide Mononitrate 90 mg 07/07/24 09:00 07/07/24 08:55 Isosorbide Mononitrate Er 30 Mg Tab.Er.24h PO 90 mg DAILY MAIKEL Administration Losartan Potassium 25 mg 07/07/24 09:00 07/07/24 08:56 Losartan 25 Mg Tab PO 25 mg DAILY MAIKEL Administration Meclizine HCl 12.5 mg 07/06/24 14:02 Meclizine 12.5 Mg Tab PO QID PRN Vertigo Metoprolol Tartrate 50 mg 07/06/24 17:30 07/07/24 06:05 Metoprolol Tartrate 50 Mg Tab PO 50 mg BID-W/MEALS MAIKEL Administration Nitroglycerin 0.4 mg 07/06/24 14:08 Nitroglycerin Sl Tabs 0.4 Mg Tab SUBLINGUAL Q5M PRN Chest Pain Nitroglycerin 0.4 mg 07/07/24 08:32 Nitroglycerin Sl Tabs 0.4 Mg Tab SUBLINGUAL Q5M PRN Chest Pain Pantoprazole Sodium 40 mg 07/06/24 17:30 07/07/24 06:05 Pantoprazole 40 Mg Tablet PO 40 mg AC-BID MAIKEL Administration Prednisone 10 mg 07/07/24 09:00 07/07/24 08:55 Prednisone 10 Mg Tab PO 10 mg DAILY MAIKEL Administration Ranolazine 1,000 mg 07/06/24 21:00 07/07/24 08:56 Ranolazine 500 Mg Tab.Er.12h PO 1,000 mg BID MAIKEL Administration Ropinirole HCl 0.5 mg 07/06/24 16:00 07/06/24 20:22 Ropinirole Hcl 0.25 Mg Tab PO 0.5 mg TID MAIKEL Administration Tamsulosin HCl 0.4 mg 07/06/24 21:00 07/06/24 20:22 Tamsulosin 0.4 Mg Cap.Er.24h PO 0.4 mg HS MAIKEL Administration Tiotropium [place] 2 puff 07/07/24 08:00 07/07/24 08:35 Tiotropium 2.5 Mcg Inhaler INHALATION 2 puff RT-DAILY MAIKEL Administration Intake and Output 07/06/24 07/07/24 07/07/24 22:59 06:59 14:59 Other: # Voids 1 1 Weight 74.843 kg 07/06/24 12:35 07/06/24 12:35
[2024-07-07 10:36] LABS: Chol/HDL Ratio 5.97 Ratio; LDL Cholesterol,Calculated 132.9 mg/dL (0.0-131.0)
[2024-07-07] MEDS: SODIUM CHLORIDE 0.9% 1,000 ML in EMPTY BAG 1 BAG IV SCH (10:36)
[2024-07-07] MEDS ORDERED: IPRATROPIUM-ALBUTEROL 3 ML NEB INHALATION PRN (14:05)
[2024-07-07] MEDS: AZITHROMYCIN 500 MG TAB PO ONE (14:21)
--- NOTE | 2024-07-07 14:48 | P.HPIM ---
History of Present Illness H&P Date: 07/07/24 This is a 64-year-old male with medical history significant for COPD, home oxygen use, coronary artery disease with prior cardiac stenting to the RCA and mid circumflex. Patient comes in with a weeklong history of intermittent chest pain over the left chest wall. He denies any radiation to the arm or jaw or back. He does state that he is always dizzy and lightheaded. Patient states that he took 3 nitroglycerin last night the chest pain was gone but he was woken up out of his sleep with severe left-sided chest pain again and came into the ER for further evaluation. Patient does live at home with his . He reports being a former smoker. He wears 2 L of oxygen via nasal cannula as needed. He has also reported productive cough, and sinus congestion. He has some scattered wheezing on examination. White blood cell count is normal at 5.8, renal function normal with a BUN of 12 creatinine of 1.03, troponin level has been negative x 3. A fasting lipid panel was done showing a triglyceride level of up to 72, cholesterol 225, LDL of 132 and an HDL of 37.70. Chest x-ray on admission reveals no acute cardiopulmonary process. EKG reveals normal sinus rhythm with a heart rate of [address] or T wave changes noted. He was admitted to the hospital under internal medicine with a consult placed to cardiology has been started on IV heparin and is currently pending cardiac cat heterization. REVIEW OF SYSTEMS: CONSTITUTIONAL: No fever, no malaise, no fatigue. HEENT: No recent visual problems or hearing problems. Denied any sore throat. CARDIOVASCULAR: No chest pain, orthopnea, PND, no palpitations, no syncope. PULMONARY: No shortness of breath, reports cough, no hemoptysis. GASTROINTESTINAL: No diarrhea, no nausea, no vomiting, no abdominal pain. NEUROLOGICAL: No headaches, no weakness, no numbness. HEMATOLOGICAL: Denies any bleeding or petechiae. GENITOURINARY: Denies any burning micturition, frequency, or urgency. MUSCULOSKELETAL/RHEUMATOLOGICAL: Denies any joint pain, swelling, or any muscle pain. ENDOCRINE: Denies any polyuria or polydipsia. The rest of the 14-point review of systems is negative. PHYSICAL EXAMINATION: GENERAL: The patient is alert and oriented x3, not in any acute distress. Well developed, well nourished. HEENT: Pupils are round and equally reacting to light. EOMI. No scleral icterus. No conjunctival pallor. Normocephalic, atraumatic. No pharyngeal erythema. No thyromegaly. CARDIOVASCULAR: S1 and S2 present. No murmurs, rubs, or gallops. PULMONARY: Faint scattered wheezing ABDOMEN: Soft, nontender, nondistended, normoactive bowel sounds. No palpable organomegaly. MUSCULOSKELETAL: No joint swelling or deformity. EXTREMITIES: No cyanosis, clubbing, or pedal edema. NEUROLOGICAL: Gross neurological examination did not reveal any focal deficits. SKIN: No rashes. Assessment and plan Chest pain, rule out ACS. Troponin level negative x 3 Acute COPD exacerbation Chronic hypoxic respiratory failure on 2L of oxygen outpatient Coronary artery disease with prior PCI to the RCA and mid circumflex Dyslipidemia Hx of stroke/TIA Hypertension Gastroesophageal reflux disease Former smoker GI prophylaxis DVT prophylaxis Plan Continue IV heparin currently pending cardiac catheterization Oral Lasix has been resumed Continue Flomax and monitor for urinary retention Continue DuoNebs scheduled and as needed patient has been resumed on his home inhaler, Spiriva 3 days of azithromycin has been ordered All other home medications have been reconciled as appropriate Monitor renal function and electrolytes The impression and plan of care has been dictated by Camilla Fallon Nurse Practitioner as directed. Dr. Isaura MD I have performed a history and physical examination and medical decision making of this patient, discussed the same with the dictator, and agree with the dictators assessment and plan as written, documented as a scribe. Based on total visit time, I have performed more than 50% of this visit. Past Medical History Past Medical History: Chest Pain / Angina, COPD, CVA/TIA, GERD/Reflux, Hyperlipidemia, Hypertension, Myocardial Infarction ([place]), Osteoarthritis (OA), Pneumonia Additional Past Medical History / Comment(s): COVID April 2022 and December 2022, multiple MIs, recent TIA, peripheral vision loss left eye, white mass on brain in MRI, wears O2 at home 3L at night & sometimes during day prn, dizziness, recent adm. to [facility] for colitis, still having N/V @times, abd. pain @times, weight loss Last Myocardial Infarction Date:: 2020 History of Any Multi-Drug Resistant Organisms: None Reported Past Surgical History: Heart Catheterization With Stent Additional Past Surgical History / Comment(s): 2 cardiac stents, iggy cataracts removed Past Anesthesia/Blood Transfusion Reactions: No Reported Reaction Date of Last Stent Placement:: 2020 Past Psychological History: Anxiety Smoking Status: Former smoker Past Alcohol Use History: None Reported Additional Past Alcohol Use History / Comment(s): quit smoking 10 yrs. ago, 1ppd or less Past Drug Use History: None Reported - Past Family History Father Family Medical History: Myocardial Infarction ([place]) Additional Family Medical History / Comment(s): from [place] Brother(s) Family Medical History: Myocardial Infarction ([place]) Additional Family Medical History / Comment(s): from [place] Medications and Allergies Home Medications Medication Instructions Recorded Confirmed Type FLUoxetine HCL [PROzac] 40 mg PO DAILY 04/26/22 07/06/24 History Isosorbide Mononitrate ER [Imdur] 90 mg PO DAILY 04/26/22 07/06/24 History Nitroglycerin Sl Tabs [Nitrostat] 0.4 mg SL Q5M PRN 04/26/22 07/06/24 History rOPINIRole HCL [Requip] 0.5 mg PO TID 04/26/22 07/06/24 History Ezetimibe [Zetia] 10 mg PO DAILY 04/16/23 07/06/24 History Losartan [Cozaar] 25 mg PO DAILY #30 tab 11/10/23 07/06/24 Rx Tiotropium Br/Olodaterol HCl 2 puff INHALATION RT-DAILY 11/10/23 07/06/24 History [Stiolto Respimat Inhal [place]] Atorvastatin [Lipitor] 80 mg PO DAILY 12/12/23 07/06/24 History Furosemide [Lasix] 20 mg PO DAILY 12/12/23 07/06/24 History Famotidine [Pepcid] 20 mg PO HS PRN 03/18/24 07/06/24 History Meclizine [Antivert] 12.5 mg PO QID PRN 03/18/24 07/06/24 History Metoprolol Tartrate [Lopressor] 50 mg PO BID-W/MEALS 03/18/24 07/06/24 History Ranolazine [Ranexa] 1,000 mg PO BID 03/18/24 07/06/24 History Tamsulosin HCl [Flomax] 0.4 mg PO HS 03/18/24 07/06/24 History Pantoprazole [Protonix] 40 mg PO BID 03/23/24 07/06/24 History Aspirin 81 mg PO DAILY 04/29/24 07/06/24 History Albuterol Sulfate [Albuterol 2 puff INHALATION RT-QID PRN 07/06/24 07/06/24 History Sulfate Hfa] predniSONE 10 mg PO DAILY 07/06/24 07/06/24 History Allergies Allergy/AdvReac Type Severity Reaction Status Date / Time codeine Allergy Anaphylaxis Verified 07/06/24 12:34 peanut Allergy Migraine/Allergy Verified 07/06/24 12:34 testing Physical Exam Vitals: Vital Signs Temp Pulse Pulse Resp BP BP BP 07/07/24 08:56 62 07/07/24 08:35 64 07/07/24 07:15 97.6 F 62 18 106/57 07/07/24 01:00 97.3 F L 64 20 148/74 07/06/24 20:22 97.7 F 60 17 110/66 07/06/24 17:30 97.6 F 69 16 115/66 07/06/24 17:00 69 19 116/74 07/06/24 16:00 65 19 109/74 07/06/24 15:00 69 17 110/77 07/06/24 14:00 71 17 127/90 07/06/24 13:00 72 18 149/86 07/06/24 12:23 97.5 F L 78 22 143/84 Pulse Ox 07/07/24 08:56 07/07/24 08:35 99 07/07/24 07:15 95 07/07/24 01:00 99 07/06/24 20:22 97 07/06/24 17:30 100 07/06/24 17:00 97 07/06/24 16:00 97 07/06/24 15:00 97 07/06/24 14:00 98 07/06/24 13:00 97 07/06/24 12:23 97 Intake and Output 07/06/24 07/07/24 07/07/24 22:59 06:59 14:59 Other: # Voids 1 1 Weight 74.843 kg Results CBC & Chem 7: 07/06/24 12:35 07/06/24 12:35 Labs: Abnormal Lab Results - Last 24 Hours (Table) 07/06/24 07/06/24 Range/Units 12:35 12:35 D-Dimer 0.65 H (<0.60) mg/L FEU Glucose 135 H (74-99) mg/dL Assessment and Plan Time with Patient: Less than 30
[2024-07-07] MEDS: IPRATROPIUM-ALBUTEROL 3 ML NEB INHALATION SCH (16:08)
[2024-07-08] MEDS: AZITHROMYCIN 500 MG TAB PO SCH (08:47)
[2024-07-08 09:07] LABS: Calcium 8.4 mg/dL (8.7-10.3); Carbon Dioxide 23.8 mmol/L (21.6-31.8); Chloride 105 mmol/L (96-109); Glucose 121 mg/dL (70-110); Potassium 4.1 mmol/L (3.5-5.5); Sodium 139 mmol/L (135-145)
[2024-07-08] MEDS: HEPARIN SODIUM,PORCINE (1 ML) 2,500 UNIT in SODIUM CHLORIDE 0.9% 250 ML IRRIGATION PRN (16:14)
[2024-07-08] MEDS: HEPARIN SODIUM,PORCINE 10,000 UNIT in SODIUM CHLORIDE 0.9% 1,000 ML IRRIGATION PRN (16:14)
[2024-07-08] MEDS: IV FLUID CONTINUATION 300 ML IV ONE (16:21)
[2024-07-08] MEDS: MIDAZOLAM 2 MG/2 ML VIAL IVP ONE (16:37)
[2024-07-08] MEDS: ASPIRIN 81 MG PO ONE (16:39)
[2024-07-08] MEDS: fentaNYL (PF) 50 MCG/ML 2 ML AMP IVP ONE (16:41)
[2024-07-08] MEDS: LIDOCAINE 1% INJ 10MG/ML (20 ML MDV) SQ ONE (16:42)
[2024-07-08] MEDS: VERAPAMIL SYRINGE (5 MG/10 ML) INTRAARTER ONE (16:43)
[2024-07-08] MEDS: PHENYLEPHRINE-0.9% NACL SYG 1,000 MCG/10 ML SYRINGE IVP ONE (16:51)
[2024-07-08] MEDS: IOPAMIDOL-370 100ML BTL INJ ONE (17:07)
[2024-07-08] MEDS: SODIUM CHLORIDE 0.9% 1,000 ML IV ONE (17:08)
--- NOTE | 2024-07-08 17:10 | P.CARDCATH ---
Description of Procedure: PROCEDURES PERFORMED: Left heart catheterization, bilateral coronary angiography, ultrasound guided arterial access, iFR LAD and circumflex INDICATION: Chest pain CONSENT:The risks, benefits and alternative therapies for the above-mentioned procedure and for both sedation/analgesia as well as necessary blood product administration, if indicated, as they pertain to this patient were discussed with the patient. The patient has indicated understanding and acceptance of the risks and procedures discussed. PROCEDURE: After the risks, benefits and alternatives of the above mentioned procedure explained in detail with the patient, informed consent was obtained. Patient was taken to the catheterization lab and prepped and draped in usual fashion. Ultrasound guidance was used to assess for arterial access. 1% lidocaine was used to anesthetize the right radial artery. A 6-H[place]ian sheath was placed in the right radial artery using modified Seldinger technique and ultrasound guidance. Left coronary angiography was performed with a 5-[place] JL 3.5 catheter and right coronary angiography was performed with a 6-Haitian AL 1.0 catheter in various views. A 5-[place]aitian FL 3.5 catheter was inserted into the left ventricle and pressure measurements were obtained. the decision was made to perform a functional assessment of the LAD and circumflex with some ventricularization noted with engaging the left main and LAD. A 0.014 pressure wire was advanced the left main and normalized. It was then advanced into the mid LAD and was normal at 0.90 despite a mild amount of drift. Then it was positioned in of the mid circumflex and I have far was normal at 0.98. The right radial sheath was removed and a TR band was placed with hemostasis achieved. The patient tolerated the procedure well. Patient was transported back to the post catheterization holding area in stable condition. Conscious Sedation: Patient was monitored under the direct supervision of myself for conscious sedation using Versed and fentanyl for a total duration of 23 minutes HEMODYNAMICS: aorta: 90/52 LV: 94/5, LVEDP 14 SELECTIVE CORONARY ARTERIOGRAPHY: LEFT MAIN: The left main is a large caliber vessel which bifurcates into the LAD and circumflex. There is distal left main 20% stenosis. LEFT ANTERIOR DESCENDING CORONARY ARTERY: LAD is a large caliber vessel which wraps around to the apex. There is proximal LAD 20-30% stenosis. There was some ventricularization with engaging the left main to LAD however appears related to positioning of the catheter. LEFT CIRCUMFLEX CORONARY ARTERY: Left circumflex is a large caliber vessel with a proximal 50% circumflex stenosis which gives off a dominant circumflex giving rise to the PDA. There are otherwise mild 30-40% stenosis. RIGHT CORONARY ARTERY: The right coronary artery is a small nondominant vessel which gives off and acute marginal branch and is non-dominant vessel. There is mild 20% stenosis. FINAL IMPRESSION: 1. Relatively stable CAD compared to prior images from 2022 including 50% proximal circumflex, proximal LAD 20-30%, distal left main 20%, 20% small caliber nondominant RCA 2. Normal left sided filling pressures 3. Normal iFR LAD and circumflex PLAN: 1. Aggressive risk factor modification per most recent ACC/AHA guidelines. 2. Follow-up in the office in 1-2 weeks.
--- NOTE | 2024-07-08 21:08 | P.PN ---
Subjective Progress Note Date: 07/08/24 This is a 64-year-old male with medical history significant for COPD, home oxygen use, coronary artery disease with prior cardiac stenting to the RCA and mid circumflex. Patient comes in with a weeklong history of intermittent chest pain over the left chest wall. He denies any radiation to the arm or jaw or back. He does state that he is always dizzy and lightheaded. Patient states that he took 3 nitroglycerin last night the chest pain was gone but he was woken up out of his sleep with severe left-sided chest pain again and came into the ER for further evaluation. Patient does live at home with his . He reports being a former smoker. He wears 2 L of oxygen via nasal cannula as needed. He has also reported productive cough, and sinus congestion. He has some scattered wheezing on examination. White blood cell count is normal at 5.8, renal function normal with a BUN of 12 creatinine of 1.03, troponin level has been negative x 3. A fasting lipid panel was done showing a triglyceride level of up to 72, cholesterol 225, LDL of 132 and an HDL of 37.70. Chest x-ray on admission reveals no acute cardiopulmonary process. EKG reveals normal sinus rhythm with a heart rate of [address] or T wave changes noted. He was admitted to the hospital under internal medicine with a consult placed to cardiology has been started on IV heparin and is currently pending cardiac catheterization. 07/08/2024 Patient is seen in follow-up today continues on IV heparin and scheduled to un dergo cardiac catheterization with Dr. Fonseca today. Patient currently n.p.o. and will resume diet once cleared by cardiology. Patient continues to report intermittent periods of chest pain and chest tightness and also continues with shortness of breath although this is chronic. Patient is chronically maintained on 2 L via nasal cannula outpatient with acute COPD exacerbation at this time. Patient is continued on breathing inhalational treatments along with daily prednisone. Will await catheterization report and cardiology clearance with possible discharge planning later this afternoon. Review of systems: Constitutional: No reports of fatigue, fever, or chills Cardiovascular: Patient reports of intermittent periods of chest pain, denies palpitations Respiratory: reports of shortness of breath GI: No reports of nausea, vomiting, or diarrhea : No reports of dysuria or retention Neurovascular: No reports of weakness or numbness All medications have been reviewed PHYSICAL EXAMINATION: GENERAL: The patient is alert and oriented x3, not in any acute distress. Well developed, well nourished. Elderly appearing HEENT: Pupils are round and equally reacting to light. EOMI. No scleral icterus. No conjunctival pallor. Normocephalic, atraumatic. No pharyngeal erythema. No thyromegaly. CARDIOVASCULAR: S1 and S2 muffled PULMONARY: Faint scattered expiratory wheezing with coarse rhonchi noted, no accessory muscle use noted ABDOMEN: Soft, non-tender, non-distended, normoactive bowel sounds. No palpable organomegaly. MUSCULOSKELETAL: No joint swelling or deformity. EXTREMITIES: No cyanosis, clubbing, or pedal edema. NEUROLOGICAL: Gross neurological examination did not reveal any focal deficits. SKIN: No rashes. Assessment: Chest pain, rule out ACS. Troponin level negative x 3, scheduled to undergo cardiac catheterization 07/08/2024 Acute COPD exacerbation Chronic hypoxic respiratory failure on 2L of oxygen outpatient Coronary artery disease with prior PCI to the RCA and mid circumflex Dyslipidemia Hx of stroke/TIA Hypertension Gastroesophageal reflux disease Former smoker GI prophylaxis DVT prophylaxis full code Plan Continue IV heparin currently pending cardiac catheterization for sometime this afternoon per nursing staff. Patient currently n.p.o. and diet will be resumed once cleared by cardiology. If cardiac catheterization is clear we will discuss with cardiology about possible discharge later today. Recommend continued telemetry monitoring and plans for discharge in 24 hours otherwise. Oral Lasix has been resumed Continue Flomax and monitor for urinary retention Continue DuoNebs scheduled and as needed patient has been resumed on his home inhaler, Spiriva 3 days of azithromycin given to complete the course Will follow-up with repeat labs and discuss further with cardiology after official cardiac catheterization report Probable discharge in 24 hours The impression and plan of care has been dictated by Geovanna Vidal, Nurse Practitioner as directed. Dr. Isaura MD I have performed a history and physical examination and medical decision making of this patient, discussed the same with the dictator, and agree with the dictators assessment and plan as written, documented as a scribe. Based on total visit time, I have performed more than 50% of this visit. Objective - Vital Signs Vital signs: Vital Signs Temp 97.6 F 07/08/24 07:00 Pulse 80 07/08/24 08:44 Resp 16 07/08/24 07:00 BP 132/72 07/08/24 07:00 Pulse Ox 96 07/08/24 07:00 FiO2 Intake & Output 07/07/24 07/08/24 07/08/24 18:59 06:59 18:59 Other: Voiding Method Toilet # Voids 1 2 - Labs CBC & Chem 7: 07/06/24 12:35 07/08/24 04:48 Labs: Abnormal Lab Results - Last 24 Hours (Table) 07/06/24 07/08/24 Range/Units 12:35 04:48 Glucose 121 H (70-110) mg/dL Calcium 8.4 L (8.7-10.3) mg/dL Triglycerides 272.00 H (0.00-149.00) mg/dL Cholesterol 225.00 H (0.00-200.00) mg/dL LDL Cholesterol, Calc 132.9 H (0.0-131.0) mg/dL VLDL Cholesterol, Calc 54.40 H (5.00-40.00) mg/dL HDL Cholesterol 37.70 L (40.00-60.00) mg/dL
[2024-07-08] MEDS: MELATONIN 5 MG TABLET PO SCH (21:24)
[2024-07-09 07:53] VITALS: BP 123/74; TEMP 97.5
[2024-07-09 08:58] VITALS: PULSE 68
[2024-07-09] MEDS: ACETAMINOPHEN TAB 325 MG TAB PO PRN (09:18)
[2024-07-09 09:43] VITALS: RESP 14
[2024-07-09 09:45] LABS: Blood Urea Nitrogen 17.8 mg/dL (9.0-27.0); Calcium 8.3 mg/dL (8.7-10.3); Carbon Dioxide 21.6 mmol/L (21.6-31.8); Chloride 106 mmol/L (96-109); Glucose 122 mg/dL (70-110); Potassium 4.1 mmol/L (3.5-5.5); Sodium 139 mmol/L (135-145)
--- NOTE | 2024-07-10 19:07 | P.DS ---
Providers Date of admission: 07/06/24 14:09 Attending physician: Kye Todd MD Consults: 07/06/24 14:08 Consult Physician Urgent Consulting Provider: Te Fonseca Consult Reason/Comments: cp Do you want consulting provider notified?: Yes Primary care physician: Yara Wong Hospital Course: Final Diagnosis Chest pain, rule out ACS. Troponin level negative x 3, scheduled to undergo cardiac catheterization 07/08/2024 Acute COPD exacerbation Chronic hypoxic respiratory failure on 2L of oxygen outpatient Coronary artery disease with prior PCI to the RCA and mid circumflex Dyslipidemia Hx of stroke/TIA Hypertension Gastroesophageal reflux disease Former smoker Discharge Disposition Patient is stable for discharge home will continue all same home medications. Follow up with Dr. Fonseca 1 to 2 weeks. Follow up with PCP Dr Wong 1 to 2 days. Hospital Course This is a 64-year-old male with medical history significant for COPD, home oxygen use, coronary artery disease with prior cardiac stenting to the RCA and mid circumflex. Patient comes in with a weeklong history of intermittent chest pain over the left chest wall. He denies any radiation to the arm or jaw or back. He does state that he is always dizzy and lightheaded. Patient states that he took 3 nitroglycerin last night the chest pain was gone but he was woken up out of his sleep with severe left-sided chest pain again and came into the ER for further evaluation. Patient does live at home with his . He reports being a former smoker. He wears 2 L of oxygen via nasal cannula as needed. He has also reported productive cough, and sinus congestion. He has some scattered wheezing on examination. White blood cell count is normal at 5.8, renal function normal with a BUN of 12 creatinine of 1.03, troponin level has been negative x 3. A fasting lipid panel was done showing a triglyceride level of up to 72, cholesterol 225, LDL of 132 and an HDL of 37.70. Chest x-ray on admission reveals no acute cardiopulmonary process. EKG reveals normal sinus rhythm with a heart rate of [address] or T wave changes noted. He was admitted to the hospital under internal medicine with a consult placed to ca rdiology has been started on IV heparin. Patient was taken to the medical lab specialist with findings of Relatively stable CAD compared to prior images from 2022 including 50% proximal circumflex, proximal LAD 20-30%, distal left main 20%, 20% small caliber nondominant RCA. Patient will be managed medically. Wheezing has improved. Patient has no reports of chest pain at this time. He has been cleared for discharge home. Please see medication reconciliation for a list of current medications. Thank you for allowing us to participate in the care of this patient. The impression and plan of care has been dictated by Camilla Fallon, Nurse Practitioner as directed. Dr. Isaura MD I have performed a history and physical examination and medical decision making of this patient, discussed the same with the dictator, and agree with the dictators assessment and plan as written, documented as a scribe. Based on total visit time, I have performed more than 50% of this visit. Patient Condition at Discharge: Stable Plan - Discharge Summary New Discharge Prescriptions: Continue Isosorbide Mononitrate ER [Imdur] 90 mg PO DAILY FLUoxetine HCL [PROzac] 40 mg PO DAILY Nitroglycerin Sl Tabs [Nitrostat] 0.4 mg SL Q5M PRN PRN Reason: Chest Pain rOPINIRole HCL [Requip] 0.5 mg PO TID Tiotropium Br/Olodaterol HCl [Stiolto Respimat Inhal [place]] 2 puff INHALATION RT-DAILY Losartan [Cozaar] 25 mg PO DAILY #30 tab Famotidine [Pepcid] 20 mg PO HS PRN PRN Reason: Gi Upset Ranolazine [Ranexa] 1,000 mg PO BID Albuterol Sulfate [Albuterol Sulfate Hfa] 2 puff INHALATION RT-QID PRN PRN Reason: Shortness Of Breath Ezetimibe [Zetia] 10 mg PO DAILY Atorvastatin [Lipitor] 80 mg PO DAILY Furosemide [Lasix] 20 mg PO DAILY Metoprolol Tartrate [Lopressor] 50 mg PO BID-W/MEALS Tamsulosin HCl [Flomax] 0.4 mg PO HS Meclizine [Antivert] 12.5 mg PO QID PRN PRN Reason: Vertigo Pantoprazole [Protonix] 40 mg PO BID Aspirin 81 mg PO DAILY predniSONE 10 mg PO DAILY Discharge Medication List FLUoxetine HCL [PROzac] 40 mg PO DAILY 04/26/22 [History] Isosorbide Mononitrate ER [Imdur] 90 mg PO DAILY 04/26/22 [History] Nitroglycerin Sl Tabs [Nitrostat] 0.4 mg SL Q5M PRN 04/26/22 [History] rOPINIRole HCL [Requip] 0.5 mg PO TID 04/26/22 [History] Ezetimibe [Zetia] 10 mg PO DAILY 04/16/23 [History] Losartan [Cozaar] 25 mg PO DAILY #30 tab 11/10/23 [Rx] Tiotropium Br/Olodaterol HCl [Stiolto Respimat Inhal [place]] 2 puff INHALATION RT-DAILY 11/10/23 [History] Atorvastatin [Lipitor] 80 mg PO DAILY 12/12/23 [History] Furosemide [Lasix] 20 mg PO DAILY 12/12/23 [History] Famotidine [Pepcid] 20 mg PO HS PRN 03/18/24 [History] Meclizine [Antivert] 12.5 mg PO QID PRN 03/18/24 [History] Metoprolol Tartrate [Lopressor] 50 mg PO BID-W/MEALS 03/18/24 [History] Ranolazine [Ranexa] 1,000 mg PO BID 03/18/24 [History] Tamsulosin HCl [Flomax] 0.4 mg PO HS 03/18/24 [History] Pantoprazole [Protonix] 40 mg PO BID 03/23/24 [History] Aspirin 81 mg PO DAILY 04/29/24 [History] Albuterol Sulfate [Albuterol Sulfate Hfa] 2 puff INHALATION RT-QID PRN 07/06/24 [History] predniSONE 10 mg PO DAILY 07/06/24 [History] Follow up Appointment(s)/Referral(s): [facility], [NON-STAFF] - As Needed Yara Wong MD [Primary Care Provider] - 1-2 days Te Fonseca DO [STAFF PHYSICIAN] - 1 Week Reece Dobbs DO [Doctor of Osteopathic Medicine] - 1 Week (COPD) Patient Instructions/Handouts: Heart Catheterization (DC) Discharge Disposition: HOME SELF-CARE
== END 2024-07-09 14:12 | disposition home or self-care (01) ==
LOC: EC 12:22 → 6NMEDSUR 14:09
PROVIDERS: ADMIT Internal Medicine; ATTEND Internal Medicine
DX: R07.89 Other chest pain (principal); J44.1 Chronic obstructive pulmonary disease with (acute) exacerbation; J96.11 Chronic respiratory failure with hypoxia; I25.10 Atherosclerotic heart disease of native coronary artery without angina pectoris; I27.20 Pulmonary hypertension, unspecified; I08.1 Rheumatic disorders of both mitral and tricuspid valves; I10 Essential (primary) hypertension; E78.5 Hyperlipidemia, unspecified; K21.9 Gastro-esophageal reflux disease without esophagitis; Z99.81 Dependence on supplemental oxygen; Z79.82 Long term (current) use of aspirin; Z79.899 Other long term (current) drug therapy; Z91.010 Allergy to peanuts; Z88.5 Allergy status to narcotic agent; Z87.891 Personal history of nicotine dependence; Z95.5 Presence of coronary angioplasty implant and graft; Z86.73 Personal history of transient ischemic attack (TIA), and cerebral infarction without residual deficits
CPT/HCPCS: 99285; 36415; 94640 ×7; 94760; 93005 ×2; 93458; 93799; 85379; 83880; 80061; 80053; 80048 ×2; 83735; 84484; 85025; 85610; 85730; 71046; G0378 ×4; C1769 ×2; C1894; J2250; J1644 ×3; J2003; J3010; J7512 ×3; Q9967; J2371

== ENCOUNTER 2024-09-26 14:38 | Inpatient (IN) | payer MEDICARE ==
--- NOTE | 2024-09-26 15:16 | ED ---
General Adult HPI - General Chief complaint: Chest Pain Stated complaint: chest pain Time Seen by Provider: 09/26/24 14:45 Source: patient, family, RN notes reviewed Mode of arrival: ambulatory Limitations: no limitations - History of Present Illness Initial comments: Patient is a 64-year-old male present to the emergency department with concerns with chest discomfort. Onset of symptoms was a couple of days ago. Patient has had intermittent chest discomfort that is improved with nitroglycerin. Discomfort is currently only 2/10. At times it becomes severe. Patient does have history of similar symptoms previously associated with previous cardiac disease and stents. Discomfort feels like tightness. There is some mild associated dyspnea. Patient has had nausea and did vomit today. - Related Data Home Medications Medication Instructions Recorded Confirmed FLUoxetine HCL [PROzac] 40 mg PO DAILY 04/26/22 09/26/24 Isosorbide Mononitrate ER [Imdur] 90 mg PO DAILY 04/26/22 09/26/24 Nitroglycerin Sl Tabs [Nitrostat] 0.4 mg SL Q5M PRN 04/26/22 09/26/24 rOPINIRole HCL [Requip] 0.5 mg PO HS 04/26/22 09/26/24 Ezetimibe [Zetia] 10 mg PO DAILY 04/16/23 09/26/24 Tiotropium Br/Olodaterol HCl 2 puff INHALATION RT-DAILY 11/10/23 09/26/24 [Stiolto Respimat Inhal [place]] Atorvastatin [Lipitor] 80 mg PO DAILY 12/12/23 09/26/24 Furosemide [Lasix] 20 mg PO DAILY 12/12/23 09/26/24 Famotidine [Pepcid] 20 mg PO HS PRN 03/18/24 09/26/24 Meclizine [Antivert] 12.5 mg PO QID PRN 03/18/24 09/26/24 Metoprolol Tartrate [Lopressor] 50 mg PO BID-W/MEALS 03/18/24 09/26/24 Ranolazine [Ranexa] 1,000 mg PO BID 03/18/24 09/26/24 Tamsulosin HCl [Flomax] 0.4 mg PO BID 03/18/24 09/26/24 Pantoprazole [Protonix] 40 mg PO BID 03/23/24 09/26/24 Aspirin 81 mg PO DAILY 04/29/24 09/26/24 Albuterol Sulfate [Albuterol 2 puff INHALATION RT-Q4H PRN 07/06/24 09/26/24 Sulfate Hfa] predniSONE 10 mg PO DAILY 07/06/24 09/26/24 Previous Rx's Medication Instructions Recorded Losartan [Cozaar] 25 mg PO DAILY #30 tab 11/10/23 Allergies Allergy/AdvReac Type Severity Reaction Status Date / Time codeine Allergy Anaphylaxis Verified 09/26/24 15:57 peanut Allergy Migraine/Allergy Verified 09/26/24 15:57 testing Review of Systems ROS Statement: Those systems with pertinent positive or pertinent negative responses have been documented in the HPI. ROS Other: All systems not noted in ROS Statement are negative. Constitutional: Denies: fever Eyes: Denies: eye pain ENT: Denies: ear pain Respiratory: Reports: as per HPI. Denies: cough Cardiovascular: Reports: as per HPI, chest pain Gastrointestinal: Reports: as per HPI, nausea Musculoskeletal: Denies: back pain Neurological: Denies: weakness Past Medical History Past Medical History: Chest Pain / Angina, COPD, CVA/TIA, GERD/Reflux, Hyperlipidemia, Hypertension, Myocardial Infarction ([place]), Osteoarthritis (OA), Pneumonia Additional Past Medical History / Comment(s): COVID April 2022 and December 2022, multiple MIs, recent TIA, peripheral vision loss left eye, white mass on brain in MRI, wears O2 at home 3L at night & sometimes during day prn, dizziness, recent adm. to [facility] for colitis, still having N/V @times, abd. pain @times, weight loss Last Myocardial Infarction Date:: 2020 History of Any Multi-Drug Resistant Organisms: None Reported Past Surgical History: Heart Catheterization With Stent Additional Past Surgical History / Comment(s): 2 cardiac stents, iggy cataracts removed Past Anesthesia/Blood Transfusion Reactions: No Reported Reaction Date of Last Stent Placement:: 2020 Past Psychological History: Anxiety Smoking Status: Former smoker Past Alcohol Use History: None Reported Past Drug Use History: None Reported - Past Family History Father Family Medical History: Myocardial Infarction ([place]) Additional Family Medical History / Comment(s): from [place] Brother(s) Family Medical History: Myocardial Infarction ([place]) Additional Family Medical History / Comment(s): from [place] General Exam Limitations: no limitations General appearance: alert, in no apparent distress Head exam: Present: normocephalic Eye exam: Present: normal appearance Neck exam: Present: normal inspection Respiratory exam: Present: normal lung sounds bilaterally. Absent: chest wall tenderness Cardiovascular Exam: Present: regular rate, normal rhythm, normal heart sounds Expanded Peripheral pulses: 2+: Radial (R), Radial (L), Posterior Tibialis (R), Posterior Tibialis (L) GI/Abdominal exam: Present: soft. Absent: tenderness Extremities exam: Present: normal inspection. Absent: pedal edema, calf tenderness Neurological exam: Present: alert Psychiatric exam: Present: normal affect, normal mood Skin exam: Present: normal color Course Vital Signs 09/26/24 09/26/24 09/26/24 14:40 14:58 16:24 Temperature 97.6 F Pulse Rate 92 86 76 Respiratory 22 18 17 Rate Blood Pressure 144/69 142/80 125/81 O2 Sat by Pulse 94 L 96 96 Oximetry EKG Findings - EKG Results: EKG: interpreted by GERARDO, sinus rhythm, normal axis, normal QRS, normal ST/T Medical Decision Making - Medical Decision Making Was pt. sent in by a medical professional or institution (, PA, BAD CLOTH CHECKER, urgent care, hospital, or care home...) When possible be specific @ -No Did you speak to anyone other than the patient for history (EMS, parent, family, police, friend...)? What history was obtained from this source @ -No Did you review nursing and triage notes (agree or disagree)? Why? @ -I reviewed and agree with nursing and triage notes Were old charts reviewed (outside hosp., previous admission, EMS record, old EKG, old radiological studies, urgent care reports/EKG's, care home records)? Report findings @ -No old charts were reviewed Differential Diagnosis (chest pain, altered mental status, abdominal pain women, abdominal pain men, vaginal bleeding, weakness, fever, dyspnea, syncope, headache, dizziness, GI bleed, back pain, seizure, CVA, palpatations, mental health, musculoskeletal)? @ -Differential Chest Pain: Stable Angina, Unstable Angina, STEMI, NSTEMI Aortic Dissection, Pneumothorax, Musculoskeletal, Esophageal Spasm GERD, Cholecystitis, Pancreatitis, Zoster, this is not meant to be an all-inclusive list. EKG interpreted by me (3pts min.). @ -As above X-rays interpreted by me (1pt min.). @ -Chest x-ray shows no acute process CT interpreted by me (1pt min.). @ -None done U/S interpreted by me (1pt. min.). @ -None done What testing was considered but not performed or refused? (CT, X-rays, U/S, labs)? Why? @ -None What meds were considered but not given or refused? Why? @ -None Did you discuss the management of the patient with other professionals (professionals i.e. , PA, BAD CLOTH CHECKER, lab, RT, psych nurse, social work instructor, retirement officer, teacher, recruitment officer, pillowcase cleaner)? Give summary @ -Case discussed with Dr. Burgos who will admit for Dr. Santana Was smoking cessation discussed for >3mins.? @ -No Was critical care preformed (if so, how long)? @ -No Were there social determinants of health that impacted care today? How? (Homelessness, low income, unemployed, alcoholism, drug addiction, [place] sportation, low edu. Level, literacy, decrease access to med. care, intermediate, rehab)? @ -No Was there de-escalation of care discussed even if they declined (Discuss DNR or withdrawal of care, Hospice)? DNR status @ -No What co-morbidities impacted this encounter? (DM, HTN, Smoking, COPD, CAD, Cancer, CVA, ARF, Chemo, Hep., AIDS, mental health diagnosis, sleep apnea, morbid obesity)? @ -History of cardiac disease Was patient admitted / discharged? Hospital course, mention meds given and route, prescriptions, significant lab abnormalities, going to OR and other pertinent info. @ -Patient presents with chest discomfort improved with nitroglycerin. Initial evaluation unremarkable. Patient will be admitted with cardiac consult. Patient updated. Admission orders written. Undiagnosed new problem with uncertain prognosis? @ -No Drug Therapy requiring intensive monitoring for toxicity (Heparin, Nitro, Insulin, Cardizem)? @ -No Were any procedures done? @ -No Diagnosis/symptom? @ -Chest pain Acute, or Chronic, or Acute on Chronic? @ -Acute Uncomplicated (without systemic symptoms) or Complicated (systemic symptoms)? @ -Default Side effects of treatment? @ -No Exacerbation, Progression, or Severe Exacerbation? @ -No Poses a threat to life or bodily function? How? (Chest pain, [place], [place], pneumonia, PE, COPD, DKA, ARF, appy, cholecystitis, CVA, Diverticulitis, Homicidal, Suicidal, threat to staff... and all critical care pts) @ -Threat to cardiac function - Lab Data Result diagrams: 09/26/24 15:00 09/26/24 15:00 Lab Results 09/26/24 09/26/24 09/26/24 Range/Units 15:00 15:00 15:00 WBC 5.2 (3.8-10.6) k/uL RBC 4.81 (4.30-5.90) m/uL Hgb 14.7 (13.0-17.5) gm/dL Hct 43.7 (39.0-53.0) % MCV 90.8 (80.0-100.0) fL MCH 30.6 (25.0-35.0) pg MCHC 33.7 (31.0-37.0) g/dL RDW 13.1 (11.5-15.5) % Plt Count 241 (150-450) k/uL MPV 7.0 Neutrophils % 63 % Lymphocytes % 23 % Monocytes % 7 % Eosinophils % 2 % Basophils % 0 % Neutrophils # 3.3 (1.3-7.7) k/uL Lymphocytes # 1.2 (1.0-4.8) k/uL Monocytes # 0.4 (0-1.0) k/uL Eosinophils # 0.1 (0-0.7) k/uL Basophils # 0.0 (0-0.2) k/uL PT 11.1 (10.0-12.5) sec INR 1.0 (<1.2) APTT 24.0 (22.0-30.0) sec Sodium 136 L (137-145) mmol/L Potassium 4.1 (3.5-5.1) mmol/L Chloride 103 (98-107) mmol/L Carbon Dioxide 25 (22-30) mmol/L Anion Gap 8 mmol/L BUN 16 (9-20) mg/dL Creatinine 0.96 (0.66-1.25) mg/dL Est GFR (CKD-EPI)AfAm >90 (>60 ml/min/1.73 sqM) Est GFR (CKD-EPI)NonAf 83 (>60 ml/min/1.73 sqM) Glucose 113 H (74-99) mg/dL Calcium 9.5 (8.4-10.2) mg/dL Magnesium 1.9 (1.6-2.3) mg/dL Total Bilirubin 0.8 (0.2-1.3) mg/dL AST 26 (17-59) U/L ALT 27 (4-49) U/L Alkaline Phosphatase 62 (38-126) U/L Troponin I (0.000-0.034) ng/mL Total Protein 7.1 (6.3-8.2) g/dL Albumin 4.2 (3.5-5.0) g/dL 09/26/24 Range/Units 15:00 WBC (3.8-10.6) k/uL RBC (4.30-5.90) m/uL Hgb (13.0-17.5) gm/dL Hct (39.0-53.0) % MCV (80.0-100.0) fL MCH (25.0-35.0) pg MCHC (31.0-37.0) g/dL RDW (11.5-15.5) % Plt Count (150-450) k/uL MPV Neutrophils % % Lymphocytes % % Monocytes % % Eosinophils % % Basophils % % Neutrophils # (1.3-7.7) k/uL Lymphocytes # (1.0-4.8) k/uL Monocytes # (0-1.0) k/uL Eosinophils # (0-0.7) k/uL Basophils # (0-0.2) k/uL PT (10.0-12.5) sec INR (<1.2) APTT (22.0-30.0) sec Sodium (137-145) mmol/L Potassium (3.5-5.1) mmol/L Chloride (98-107) mmol/L Carbon Dioxide (22-30) mmol/L Anion Gap mmol/L BUN (9-20) mg/dL Creatinine (0.66-1.25) mg/dL Est GFR (CKD-EPI)AfAm (>60 ml/min/1.73 sqM) Est GFR (CKD-EPI)NonAf (>60 ml/min/1.73 sqM) Glucose (74-99) mg/dL Calcium (8.4-10.2) mg/dL Magnesium (1.6-2.3) mg/dL Total Bilirubin (0.2-1.3) mg/dL AST (17-59) U/L ALT (4-49) U/L Alkaline Phosphatase (38-126) U/L Troponin I <0.012 (0.000-0.034) ng/mL Total Protein (6.3-8.2) g/dL Albumin (3.5-5.0) g/dL Disposition Clinical Impression: Chest pain Disposition: ADMITTED IP TO THIS HOSP Is patient prescribed a controlled substance at d/c from ED?: No Referrals: Yara Wong MD [Primary Care Provider] - 1-2 days Time of Disposition: 17:25
[2024-09-26] MEDS: NITROGLYCERIN OINT 1 INCH/GM PACKET TOPICAL STA (15:24)
[2024-09-26] MEDS: ASPIRIN 81 MG PO STA (15:24)
[2024-09-26 15:27] LABS: Basophils % (A) 0 %; Eosinophils # (A) 0.1 k/uL (0-0.7); Eosinophils % (A) 2 %; HCT 43.7 % (39.0-53.0); HGB 14.7 gm/dL (13.0-17.5); Lymphocytes # (A) 1.2 k/uL (1.0-4.8); Lymphocytes % (A) 23 %; MCH 30.6 pg (25.0-35.0); MCHC 33.7 g/dL (31.0-37.0); MCV 90.8 fL (80.0-100.0); Monocytes # (A) 0.4 k/uL (0-1.0); Monocytes % (A) 7 %; Neutrophils # (A) 3.3 k/uL (1.3-7.7); Neutrophils % (A) 63 %; Platelet Count 241 k/uL (150-450); RBC 4.81 m/uL (4.30-5.90); RDW 13.1 % (11.5-15.5); WBC 5.2 k/uL (3.8-10.6)
[2024-09-26 15:31] LABS: ALT 27 U/L (4-49); AST 26 U/L (17-59); African American GFR (CKD) >90 (>60 ml/min/1.73 sqM); Albumin 4.2 g/dL (3.5-5.0); Alkaline Phosphatase 62 U/L (38-126); Anion Gap 8 mmol/L; Blood Urea Nitrogen 16 mg/dL (9-20); Calcium 9.5 mg/dL (8.4-10.2); Carbon Dioxide 25 mmol/L (22-30); Chloride 103 mmol/L (98-107); Glucose 113 mg/dL (74-99); Magnesium 1.9 mg/dL (1.6-2.3); Non-African American GFR(CKD) 83 (>60 ml/min/1.73 sqM); Potassium 4.1 mmol/L (3.5-5.1); Sodium 136 mmol/L (137-145); Total Bilirubin 0.8 mg/dL (0.2-1.3); Total Protein 7.1 g/dL (6.3-8.2)
[2024-09-26 15:56] LABS: Prothrombin Time 11.1 sec (10.0-12.5)
[2024-09-26] MEDS: ONDANSETRON 4 MG/2 ML VIAL IVP STA (16:23)
[2024-09-26] MEDS ORDERED: FAMOTIDINE 20 MG TAB PO PRN (16:45)
[2024-09-26] MEDS ORDERED: MECLIZINE 12.5 MG TAB PO PRN (16:45)
--- NOTE | 2024-09-26 17:22 | XR ---
EXAMINATION TYPE: XR chest 2V DATE OF EXAM: 09/26/2024 CLINICAL INDICATION: Male, 64 years old with history of Chest Pain, TECHNIQUE: Frontal and lateral views of the chest are obtained. COMPARISON: Chest x-ray July 06, 2024 FINDINGS: There is chronic emphysematous changes bilaterally without suspicious focal air space opac ity, pleural effusion, or pneumothorax seen. The cardiac silhouette size is stable and upper limits of normal. The osseous structures are intact. IMPRESSION: Chronic changes without acute pulmonary process. [facility], , 09/26/2024 5:20 PM
[2024-09-26] MEDS: NITROGLYCERIN OINT 1 INCH/GM PACKET TOPICAL SCH (17:32)
[2024-09-26] MEDS: FAMOTIDINE 20 MG/2 ML VIAL IV STA (18:17)
[2024-09-26] MEDS: METOPROLOL TARTRATE 50 MG TAB PO SCH (18:17)
[2024-09-26] MEDS: TAMSULOSIN 0.4 MG CAP.ER.24H PO SCH (20:34)
[2024-09-26] MEDS: RANOLAZINE 500 MG TAB.ER.12H PO SCH (20:34)
[2024-09-26] MEDS: HEPARIN SODIUM,PORCINE 5,000 UNIT/ML 1 ML VIAL SQ SCH (20:35)
[2024-09-26] MEDS: PANTOPRAZOLE 40 MG TABLET PO SCH (20:35)
--- NOTE | 2024-09-26 22:44 | HP ---
HISTORY AND PHYSICAL CHIEF COMPLAINT: Chest pain. HISTORY OF PRESENT ILLNESS: This is a 64-year-old gentleman with a past medical history of multiple medical problems including COPD, GERD, hypertension, hyperlipidemia, was complaining of chest pain. The pain was felt in the anterior part of the chest which was constricting somebody sitting on the chest, 2 to 3/10. The patient had nitroglycerin paste and pain improved significantly with nitroglycerin paste. There is no history of any fever, rigors, or chills at this time. The patient was recently admitted with chest pain. The patient underwent cardiac catheterization in June, showed stable CAD with 50% proximal circumflex, LAD 20% to 30% and left main 20%. There is no history of any fever, rigors, or chills at this time. PAST MEDICAL HISTORY: Reviewed include COPD, CAD, hypertension, hyperlipidemia. Rest of the history is charted. HOME MEDICATIONS: Reviewed and Requip. Dose and rest of medications reviewed. ALLERGIES: Codeine and peanut. FAMILY HISTORY: History of myocardial infarction in the family. SOCIAL HISTORY: Previous history of smoking. REVIEW OF SYSTEMS: Fourteen-point review of systems is negative except as mentioned earlier. PHYSICAL EXAMINATION: VITAL SIGNS: Pulse is 76, blood pressure 120/84, respirations 17. HEENT: Conjunctivae normal. NECK: No JVD. CARDIOVASCULAR: S1, S2. RESPIRATIONS: Breath sounds diminished at the bases. ABDOMEN: Soft, nontender. LEGS: No edema. NERVOUS SYSTEM: Nonfocal. LABORATORY DATA: Reviewed. ASSESSMENT: 1. Chest pain, possible unstable angina, rule out myocardial infarction. 2. History of cardiac catheterization, mild to moderate coronary artery disease in June of this year. 3. Chronic obstructive pulmonary disease. 4. Hypertension. 5. Hyperlipidemia. 6. Degenerative joint disease. 7. History of COVID. 8. History of nicotine dependence. RECOMMENDATIONS AND DISCUSSION: This is a 64-year-old gentleman, who presented with multiple complex medical issues, we will monitor the patient closely. Continue the current medications. Continue with antiplatelet agents. Closely follow with Cardiology. Resume the home medications. Rule out myocardial infarction. Symptomatic treatment for the pain. Prognosis guarded because of multiple complex medical issues. Further recommendations to follow. MMODL / IJN: [id number] /
[2024-09-27] MEDS: FORMOTEROL FUMARATE 20 MCG/2 ML NEBU INHALATION SCH (04:45)
[2024-09-27] MEDS ORDERED: NON FORMULARY DRUG (Tiotropium Br/Olodaterol Hcl [Stiolto Respimat Inhal Spray] 4 GM Each) INHALATION SCH (08:00)
[2024-09-27 08:40] LABS: BUN/Creat Ratio 14.22 Ratio (12.00-20.00); Blood Urea Nitrogen 12.8 mg/dL (9.0-27.0); Calcium 8.6 mg/dL (8.7-10.3); Carbon Dioxide 24.7 mmol/L (21.6-31.8); Chloride 105 mmol/L (96-109); Glucose 98 mg/dL (70-110); Potassium 4.3 mmol/L (3.5-5.5); Sodium 138 mmol/L (135-145)
[2024-09-27 09:12] LABS: Basophils # (A) 0.03 X 10*3/uL (0.00-0.10); Basophils % (A) 0.6 %; Eosinophils # (A) 0.13 X 10*3/uL (0.04-0.35); Eosinophils % (A) 2.6 %; HCT 39.8 % (39.6-50.0); HGB 13.8 g/dL (13.0-17.0); Lymphocytes # (A) 1.49 X 10*3/uL (0.90-5.00); Lymphocytes % (A) 30.3 %; MCH 31.8 pg (27.0-32.0); MCHC 34.7 g/dL (32.0-37.0); MCV 91.7 FL (80.0-97.0); Mean Platelet Volume 9.5 FL (9.5-12.2); Monocytes # (A) 0.68 X 10*3/uL (0.20-1.00); Monocytes % (A) 13.8 %; NRBC Per 100 WBC 0 X 10*3/uL (0.00-0.01); Neutrophils # (A) 2.56 X 10*3/uL (1.80-7.70); Neutrophils % (A) 52.3 %; Platelet Count 210 X 10*3/uL (140-440); RBC 4.34 X 10*6/uL (4.40-5.60); RDW 12.5 % (11.5-14.5); WBC 4.91 X 10*3/uL (4.50-10.00)
[2024-09-27] MEDS: TIOTROPIUM 2.5 MCG INHALER INHALATION SCH (09:47)
[2024-09-27] MEDS: ALBUTEROL NEBULIZED 2.5 MG/3 ML INHALATION PRN (09:47)
[2024-09-27] MEDS: ISOSORBIDE MONONITRATE ER 30 MG TAB.ER.24H PO SCH (09:50)
[2024-09-27] MEDS: ASPIRIN 81 MG PO SCH (09:51)
[2024-09-27] MEDS: KETOROLAC 15 MG/ML 1 ML VIAL IVP STA (09:51)
[2024-09-27] MEDS: FLUoxetine HCL 20 MG CAP PO SCH (09:51)
[2024-09-27] MEDS: FUROSEMIDE 20 MG TAB PO SCH (09:51)
[2024-09-27] MEDS: EZETIMIBE 10 MG TAB PO SCH (09:51)
[2024-09-27] MEDS: ATORVASTATIN 80 MG TAB PO SCH (09:51)
[2024-09-27] MEDS: predniSONE 10 MG TAB PO SCH (09:51)
[2024-09-27] MEDS: LOSARTAN 25 MG TAB PO SCH (09:51)
--- NOTE | 2024-09-27 10:27 | P.CRDCN ---
History of Present Illness History of present illness: HISTORY OF PRESENT ILLNESS: This is a 64-year-old male with a past medical history significant for coronary artery disease with previous stenting, COPD, hypertension, hyperlipidemia, and syncope. Patient follows in the office with Dr. Fonseca. We have been asked to see the patient in consultation for chest pain. Patient examined at the bedside. Patient presented to the hospital with chief complaint of chest discomfort. Patient states the pain is in the middle of his chest. The patient describes the pain as a sharp pain. The pain is worse with deep inspiration and also with chest wall palpation. He reports the pain is worse with changes in position and movement in the bed. DIAGNOSTICS: - EKG reveals sinus mechanism with no signs of acute ischemia. - Chest xray chronic changes without acute pulmonary process. - Laboratory data: WBC 5.2. Hemoglobin 14.7. Platelet count 241. Sodium 136. Potassium 4.1. BUN 16. Creatinine 0.96. Magnesium 1.9. Troponin negative x 3. - Current home cardiac medications include Ranexa 1000 mg twice a day, metoprolol titrate 50 mg twice a day, losartan 25 mg daily, Imdur 90 mg daily, Lasix 20 mg daily, Zetia 10 mg daily, atorvastatin 80 mg daily and aspirin 81 mg daily. - Most recent echocardiogram obtained in December 2023 revealed ejection fraction 55 to 60%, mild TR, mild pulmonary hypertension, trace MR - Cardiac catheterization history: June 2024 revealing 50% proximal circumflex, proximal LAD 20 to 30%, distal left main 20%, 20% small caliber nondominant RCA. Normal left-sided filling pressures. Normal IFR of LAD and circumflex. Medical management was recommended. REVIEW OF SYSTEMS: At the time of my exam: CONSTITUTIONAL: Denies fever or chills. HEENT: Denies blurred vision, vision changes, or eye pain. Denies hemoptysis CARDIOVASCULAR: Denies chest pain. Denies orthopnea. Denies PND. Denies palpitations RESPIRATORY: Denies shortness of breath. GASTROINTESTINAL: Denies abdominal pain. Denies nausea or vomiting. HEMATOLOGIC: Denies bleeding disorders. GENITOURINARY: Denies any blood in urine. SKIN: Denies pruitis. Denies rash. PHYSICAL EXAM: VITAL SIGNS: Reviewed. GENERAL: Well-developed in no acute distress. HEENT: Head is normocephalic. Pupils are equal, round. Sclerae anicteric. Mucous membranes of the mouth are moist. Neck supple. No JVD or thyromegaly LUNGS: Respirations even and unlabored. Lungs essentially clear to auscultation bilaterally. HEART: Regular rate and rhythm. S1 and S2 heard. ABDOMEN: Soft. Nondistended. Nontender. EXTREMITIES: Normal range of motion. No clubbing or cyanosis. Peripheral pulses intact. No lower extremity edema NEUROLOGIC: Awake and alert. Oriented x 3. ASSESSMENT: Chest pain, atypical, possible musculoskeletal in nature Coronary artery disease COPD Hypertension Hyperlipidemia History of syncope PLAN: An acute coronary event has been ruled out Obtain 2D echo to assess cardiac structure and function Resume home cardiac medications Give one-time dose of IV Toradol Obtain d-dimer No plans for inpatient stress testing or cardiac catheterization at this time Further recommendations pending patient course Nurse practitioner note has been reviewed by physician. Signing provider agrees with the documented findings, assessment, and plan of care documented by [employer]PER[employer]OR as a scribe. Past Medical History Past Medical History: Chest Pain / Angina, COPD, CVA/TIA, GERD/Reflux, Hyperlipidemia, Hypertension, Myocardial Infarction ([place]), Osteoarthritis (OA), Pneumonia Additional Past Medical History / Comment(s): COVID April 2022 and December 2022, multiple MIs, recent TIA, peripheral vision loss left eye, white mass on brain in MRI, wears O2 at home 3L at night & sometimes during day prn, dizziness, recent adm. to [facility] for colitis, still having N/V @times, abd. pain @times, weig ht loss Last Myocardial Infarction Date:: 2020 History of Any Multi-Drug Resistant Organisms: None Reported Past Surgical History: Heart Catheterization With Stent Additional Past Surgical History / Comment(s): 2 cardiac stents, iggy cataracts removed Past Anesthesia/Blood Transfusion Reactions: No Reported Reaction Date of Last Stent Placement:: 2020 Past Psychological History: Anxiety Smoking Status: Former smoker Past Alcohol Use History: None Reported Additional Past Alcohol Use History / Comment(s): quit smoking 10 yrs. ago, 1ppd or less Past Drug Use History: None Reported - Past Family History Father Family Medical History: Myocardial Infarction ([place]) Additional Family Medical History / Comment(s): from [place] Brother(s) Family Medical History: Myocardial Infarction ([place]) Additional Family Medical History / Comment(s): from [place] Medications and Allergies Home Medications Medication Instructions Recorded Confirmed Type FLUoxetine HCL [PROzac] 40 mg PO DAILY 04/26/22 09/26/24 History Isosorbide Mononitrate ER [Imdur] 90 mg PO DAILY 04/26/22 09/26/24 History Nitroglycerin Sl Tabs [Nitrostat] 0.4 mg SL Q5M PRN 04/26/22 09/26/24 History rOPINIRole HCL [Requip] 0.5 mg PO HS 04/26/22 09/26/24 History Ezetimibe [Zetia] 10 mg PO DAILY 04/16/23 09/26/24 History Losartan [Cozaar] 25 mg PO DAILY #30 tab 11/10/23 09/26/24 Rx Tiotropium Br/Olodaterol HCl 2 puff INHALATION RT-DAILY 11/10/23 09/26/24 History [Stiolto Respimat Inhal [place]] Atorvastatin [Lipitor] 80 mg PO DAILY 12/12/23 09/26/24 History Furosemide [Lasix] 20 mg PO DAILY 12/12/23 09/26/24 History Famotidine [Pepcid] 20 mg PO HS PRN 03/18/24 09/26/24 History Meclizine [Antivert] 12.5 mg PO QID PRN 03/18/24 09/26/24 History Metoprolol Tartrate [Lopressor] 50 mg PO BID-W/MEALS 03/18/24 09/26/24 History Ranolazine [Ranexa] 1,000 mg PO BID 03/18/24 09/26/24 History Tamsulosin HCl [Flomax] 0.4 mg PO BID 03/18/24 09/26/24 History Pantoprazole [Protonix] 40 mg PO BID 03/23/24 09/26/24 History Aspirin 81 mg PO DAILY 04/29/24 09/26/24 History Albuterol Sulfate [Albuterol 2 puff INHALATION RT-Q4H PRN 07/06/24 09/26/24 History Sulfate Hfa] predniSONE 10 mg PO DAILY 07/06/24 09/26/24 History Allergies Allergy/AdvReac Type Severity Reaction Status Date / Time codeine Allergy Anaphylaxis Verified 09/26/24 15:57 peanut Allergy Migraine/Allergy Verified 09/26/24 15:57 testing Physical Exam Vitals: Vital Signs Temp Pulse Pulse Resp BP BP Pulse Ox 09/27/24 02:00 60 09/27/24 01:38 97.4 F L 60 17 127/78 100 09/26/24 22:10 68 17 96 09/26/24 20:39 97.7 F 62 18 113/60 96 09/26/24 20:00 97.5 F L 64 18 149/82 96 09/26/24 18:20 80 19 129/80 95 09/26/24 16:24 76 17 125/81 96 09/26/24 14:58 86 18 142/80 96 09/26/24 14:40 97.6 F 92 22 144/69 94 L Intake and Output 09/26/24 09/27/24 09/27/24 22:59 06:59 14:59 Other: Voiding Method Toilet # Voids 1 Weight 74.843 kg Results 09/27/24 05:05 09/27/24 05:05 Cardiac Enzymes 09/26/24 09/26/24 09/26/24 Range/Units 15:00 15:00 18:31 AST 26 (17-59) U/L Troponin I <0.012 <0.012 (0.000-0.034) ng/mL 09/26/24 Range/Units 21:17 AST (17-59) U/L Troponin I <0.012 (0.000-0.034) ng/mL Coagulation 09/26/24 Range/Units 15:00 PT 11.1 (10.0-12.5) sec APTT 24.0 (22.0-30.0) sec CBC 09/26/24 Range/Units 15:00 WBC 5.2 (3.8-10.6) k/uL RBC 4.81 (4.30-5.90) m/uL Hgb 14.7 (13.0-17.5) gm/dL Hct 43.7 (39.0-53.0) % Plt Count 241 (150-450) k/uL Comprehensive Metabolic Panel 09/26/24 Range/Units 15:00 Sodium 136 L (137-145) mmol/L Potassium 4.1 (3.5-5.1) mmol/L Chloride 103 (98-107) mmol/L Carbon Dioxide 25 (22-30) mmol/L BUN 16 (9-20) mg/dL Creatinine 0.96 (0.66-1.25) mg/dL Glucose 113 H (74-99) mg/dL Calcium 9.5 (8.4-10.2) mg/dL AST 26 (17-59) U/L ALT 27 (4-49) U/L Alkaline Phosphatase 62 (38-126) U/L Total Protein 7.1 (6.3-8.2) g/dL Albumin 4.2 (3.5-5.0) g/dL Current Medications Generic Name Dose Route Start Last Admin Trade Name Freq PRN Reason Stop Dose Admin Albuterol Sulfate 2.5 mg 09/26/24 16:45 Albuterol Nebulized 2.5 Mg/3 Ml INHALATION RT-Q4H PRN Shortness Of Breath Aspirin 81 mg 09/27/24 09:00 Aspirin 81 Mg PO DAILY [facility] Atorvastatin Calcium 80 mg 09/27/24 09:00 Atorvastatin 80 Mg Tab PO DAILY [facility] Ezetimibe 10 mg 09/27/24 09:00 Ezetimibe 10 Mg Tab PO DAILY [facility] Famotidine 20 mg 09/26/24 16:45 Famotidine 20 Mg Tab PO HS PRN GI Upset Fluoxetine HCl 40 mg 09/27/24 09:00 Fluoxetine Hcl 20 Mg Cap PO DAILY [facility] Formoterol Fumarate 20 mcg 09/26/24 20:00 09/27/24 04:45 Formoterol Fumarate 20 Mcg/2 Ml Nebu INHALATION Not Given RT-BID [facility] Furosemide 20 mg 09/27/24 09:00 Furosemide 20 Mg Tab PO DAILY [facility] Heparin Sodium (Porcine) 5,000 unit 09/26/24 21:00 09/26/24 20:35 Heparin Sodium,Porcine 5,000 Unit/Ml 1 Ml Vial SQ 5,000 unit Q12HR [facility] Administration Isosorbide Mononitrate 90 mg 09/27/24 09:00 Isosorbide Mononitrate Er 30 Mg Tab.Er.24h PO DAILY [facility] Losartan Potassium 25 mg 09/27/24 09:00 Losartan 25 Mg Tab PO DAILY [facility] Meclizine HCl 12.5 mg 09/26/24 16:45 Meclizine 12.5 Mg Tab PO QID PRN Vertigo Metoprolol Tartrate 50 mg 09/26/24 17:30 09/26/24 18:17 Metoprolol Tartrate 50 Mg Tab PO 50 mg BID-W/MEALS MAIKEL Administration Nitroglycerin 0.4 mg 09/26/24 17:26 Nitroglycerin Sl Tabs 0.4 Mg Tab SUBLINGUAL Q5M PRN Chest Pain Nitroglycerin 1 inch 09/26/24 18:00 09/27/24 05:25 Nitroglycerin Oint 1 Inch/Gm Packet TOPICAL Not Given Q6HR MAIKEL Pantoprazole Sodium 40 mg 09/26/24 21:00 09/26/24 20:35 Pantoprazole 40 Mg Tablet PO 40 mg BID MAIKEL Administration Prednisone 10 mg 09/27/24 09:00 Prednisone 10 Mg Tab PO DAILY MAIKEL Ranolazine 1,000 mg 09/26/24 21:00 09/26/24 20:34 Ranolazine 500 Mg Tab.Er.12h PO 1,000 mg BID MAIKEL Administration Ropinirole HCl 0.5 mg 09/26/24 21:00 09/26/24 20:35 Ropinirole Hcl 0.25 Mg Tab PO 0.5 mg HS MAIKEL Administration Tamsulosin HCl 0.4 mg 09/26/24 21:00 09/26/24 20:34 Tamsulosin 0.4 Mg Cap.Er.24h PO 0.4 mg BID MAIKEL Administration Tiotropium [place] 2 puff 09/27/24 08:00 Tiotropium 2.5 Mcg Inhaler INHALATION RT-DAILY [facility] Intake and Output 09/26/24 09/27/24 09/27/24 22:59 06:59 14:59 Other: Voiding Method Toilet # Voids 1 Weight 74.843 kg 09/26/24 15:00 09/26/24 15:00
[2024-09-27] MEDS: NITROGLYCERIN SL TABS 0.4 MG TAB SUBLINGUAL PRN (11:05)
[2024-09-27] MEDS: NITROGLYCERIN OINT 1 INCH/GM PACKET TOPICAL SCH (11:08)
[2024-09-27] MEDS ORDERED: ALPRAZolam 0.5 MG TAB PO PRN (13:54)
[2024-09-27] MEDS ORDERED: ALPRAZolam 0.25 MG TAB PO PRN (13:54)
[2024-09-27] MEDS: SODIUM CHLORIDE 0.9% 1,000 ML IV ONE (15:35)
[2024-09-27] MEDS: HEPARIN SODIUM 1,000 UN/ML (10ML VL) IV ONE (15:37)
[2024-09-27] MEDS: HEPARIN SOD,PORK IN 0.45% NACL 25,000 UNIT in 0.45% NACL 1 250ML.BAG IV SCH (15:37)
[2024-09-27] MEDS: HEPARIN SODIUM,PORCINE (1 ML) 2,500 UNIT in SODIUM CHLORIDE 0.9% 250 ML IRRIGATION ONE (15:45)
[2024-09-27] MEDS: HEPARIN SODIUM,PORCINE 10,000 UNIT in SODIUM CHLORIDE 0.9% 1,000 ML IRRIGATION ONE (15:46)
[2024-09-27] MEDS: MIDAZOLAM 2 MG/2 ML VIAL IVP ONE (15:50)
[2024-09-27] MEDS: LIDOCAINE 1% INJ 10MG/ML (20 ML MDV) SQ ONE (15:52)
[2024-09-27] MEDS: fentaNYL (PF) 50 MCG/ML 2 ML AMP IVP ONE (15:52)
[2024-09-27] MEDS: VERAPAMIL SYRINGE (5 MG/10 ML) INTRAARTER ONE (15:54)
[2024-09-27] MEDS: PHENYLEPHRINE-0.9% NACL SYG 1,000 MCG/10 ML SYRINGE IVP ONE (15:59)
[2024-09-27] MEDS: IOPAMIDOL-370 100ML BTL INJ ONE ×3 (16:14→16:29)
[2024-09-27] MEDS: HEPARIN SODIUM 1,000 UN/ML (10ML VL) IVP ONE (16:27)
[2024-09-27] MEDS: HEPARIN SOD,PORK IN 0.45% NACL 25,000 UNIT in 0.45% NACL 1 250ML.BAG IV ONE (16:46)
[2024-09-27] MEDS: IOPAMIDOL-370 100ML BTL IVP ONE (16:54)
--- NOTE | 2024-09-27 17:26 | P.CARDCATH ---
Description of Procedure: PROCEDURES PERFORMED: Left heart catheterization, bilateral coronary angiography, ultrasound guided arterial access, left ventriculogram, iFR circumflex, IVUS left main to circumflex INDICATION: Non-STEMI CONSENT:I have discussed the risks, benefits and alternative therapies for the above-mentioned procedure and for both sedation/analgesia as well as necessary blood product administration, if indicated, as they pertain to this patient. The patient has indicated understanding and acceptance of the risks and procedures discussed. PROCEDURE: After the risks, benefits and alternatives of the above mentioned procedure explained in detail with the patient, informed consent was obtained. Patient was taken to the catheterization lab and prepped and draped in usual fashion. Ultrasound guidance was used to assess for arterial access. 1% lidocaine was used to anesthetize the right ulnar artery. A 6-Rwandan sheath was placed in the right ulnar artery using modified Seldinger technique and ultrasound guidance. Left coronary angiography was performed with a 5-[place]andan JL 3.5 catheter and right coronary angiography was performed with a 5-[place] FR5 catheter in various views. A 5-[place]and[place] FR5 catheter was inserted into the left ventricle and pressure measurements were obtained. A left ventriculogram was performed in the CARTER projection with power injection with a 6 [place] pigtail catheter. Patient's coronary anatomy appeared relatively unchanged from prior images from June. He was still having active 1 out of 10 chest pain. Given recent non- STEMI and unstable symptoms further assessment was recommended. Heparin was given. A 6 [place] CLS 3.0 guide catheter was used to engage the left main. A 0.014 pressure wire was advanced and normalized. It was then advanced 1 cm distal to the circumflex lesion and IFR was performed and was normal at 0.94. Additionally intravascular ultrasound was performed of the left main into the circumflex with intravascular ultrasound showing 20 to 30% left main stenosis and 40 to 50% circumflex stenosis with no soft plaque, no dissection. There was consideration of possible vasospasm, possible symptoms from myocardial bridging or possible PE. Left ventriculogram showed EF 60% with no significant wall motion abnormalities. The right ulnar sheath was removed and a TR band was placed with hemostasis achieved. The patient tolerated the procedure well. Patient was transported back to the post catheterization holding area in stable condition. Conscious Sedation: Patient was monitored under the direct supervision of myself for conscious sedation using Versed and fentanyl for a total duration of 31 minutes HEMODYNAMICS: Aorta: 91/68 LV: 90/2, LVEDP 9 SELECTIVE CORONARY ARTERIOGRAPHY: LEFT MAIN: There is 30% left main stenosis LEFT ANTERIOR DESCENDING CORONARY ARTERY: LAD is a large caliber vessel which wraps around to the apex. There is proximal LAD 20-30% stenosis. There was some ventricularization with engaging the left main to LAD however appears related to positioning of the catheter. 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 LEFT CIRCUMFLEX CORONARY ARTERY: Left circumflex is a large caliber vessel with a proximal 50% circumflex stenosis which gives off a dominant circumflex giving rise to the PDA. There are otherwise mild luminal irregularities and a 30% mid circumflex. RIGHT CORONARY ARTERY: The right coronary artery is a small nondominant vessel which gives off and acute marginal branch and is non-dominant vessel. There is mild 20% stenosis. LEFT VENTRICULOGRAM: Left ventricular ejection fraction 60%. No mitral regurgitation FINAL IMPRESSION: 1. CAD as described above including proximal circumflex 40 to 50%, mid circumflex 30% stenosis, 20% nondominant RCA, 30 to 40% left main stenosis 2. Low normal left sided filling pressures 3. Normal iFR circumflex PLAN: 1. Aggressive risk factor modification per most recent ACC/AHA guidelines. 2. Patient with intermittent angina type symptoms and recent non-STEMI with concern of ST elevations in the inferior leads. His circumflex which is dominant however has no significant change with normal IFR. More likely vasospasm and attempt to treat medically. He is already on good antianginal medications and would try calcium channel rob however if unable to tolerate may consider high risk PCI of circumflex to the ostium however increased risk with stenting. Continue heparin drip for at least 24 hours.
[2024-09-27] MEDS ORDERED: METOPROLOL TARTRATE 25 MG TAB PO SCH (17:30)
--- NOTE | 2024-09-27 17:30 | P.PN ---
Progress Note - Text Patient's coronary anatomy appears unchanged. His symptoms with chest pain and ST elevation in the inferior leads concerning more so for vasospasm. Add Norvasc for vasospasm if blood pressure can tolerate. Continue heparin drip at least for 24 hours. Does not appear to be any soft plaque that has recanalized on intravascular ultrasound. Check CT PE protocol for completeness sake however most of symptoms appear more related to angina. Trend troponins. Check 2D echo. Check lactic acid. LVEDP was low and monitor response of IV fluids however if blood pressure remains low may need monitoring in ICU.
--- NOTE | 2024-09-27 17:38 | PN ---
PROGRESS NOTE DATE OF SERVICE: 09/27/2024 SUBJECTIVE: This is a 64-year-old gentleman who was admitted with persistent chest pain. The patient also had ST-T changes on the EKG. The patient had coronary artery disease and previous cardiac catheterization. The troponin has gone up to 0.304. Cardiology planning a cardiac catheterization. The patient has significantly elevated cholesterol, LDL and as well as triglycerides also. PAST MEDICAL HISTORY: Reviewed. REVIEW OF SYSTEMS: A 14-point review of systems is negative except as mentioned earlier. CURRENT MEDICATIONS: Reviewed. PHYSICAL EXAMINATION: VITAL SIGNS: Pulse is 86, blood pressure 81/40, respirations 18. HEENT: Conjunctivae normal. NECK: No JVD. CARDIOVASCULAR: S1, S2. RESPIRATIONS: Breath sounds diminished at the bases. ABDOMEN: Soft, nontender. LEGS: No edema. LABORATORY DATA: Troponin 0.304. Otherwise, D-dimer is negative. ASSESSMENT: 1. Chest pain, possible acute eht-IK-[id number]-elevation myocardial infarction. 2. Relative hypotension. 3. History of cardiac catheterization, mild to moderate coronary artery disease in June of this year. 4. Chronic obstructive pulmonary disease. 5. Hypertension. 6. Hyperlipidemia. 7. Degenerative joint disease. 8. History of COVID. 9. Multiple complex medical issues. RECOMMENDATIONS AND DISCUSSION: Recommend to continue current management and continue symptomatic treatment. Continue with current medications. Acute coronary syndrome protocol. IV heparin. Repeat labs. Telemetry. Follow closely with Cardiology. Cardiac cath. Guarded prognosis. Further recommendations to follow. MMODL / IJN: [id number] /
[2024-09-27] MEDS: SODIUM CHLORIDE 0.9% 1,000 ML IV SCH (17:40)
[2024-09-27] MEDS: METOPROLOL TARTRATE 12.5 MG TAB PO SCH (17:48)
[2024-09-27 18:51] LABS: Basophils # (A) 0.01 10*3/uL (0.00-0.10); Basophils % (A) 0.2 %; HCT 36.3 % (39.6-50.0); HGB 12.8 g/dL (13.0-17.0); Lymphocytes # (A) 0.65 10*3/uL (0.90-5.00); Lymphocytes % (A) 10.4 %; MCHC 35.3 g/dL (32.0-37.0); MCV 90.8 fL (80.0-97.0); Monocytes # (A) 0.29 10*3/uL (0.20-1.00); Monocytes % (A) 4.7 %; Neutrophils # (A) 5.25 10*3/uL (1.80-7.70); Neutrophils % (A) 84.2 %; Platelet Count 207 10*3/uL (140-440); RDW 12.3 % (11.5-14.5); WBC 6.23 10*3/uL (4.50-10.00)
[2024-09-27 22:08] LABS: African American GFR (CKD) 78 (>60 ml/min/1.73 sqM); Anion Gap 6 mmol/L; Blood Urea Nitrogen 22 mg/dL (9-20); Calcium 8.5 mg/dL (8.4-10.2); Carbon Dioxide 22 mmol/L (22-30); Chloride 105 mmol/L (98-107); Glucose 121 mg/dL (74-99); Non-African American GFR(CKD) 68 (>60 ml/min/1.73 sqM); Potassium 4.3 mmol/L (3.5-5.1); Sodium 133 mmol/L (137-145)
[2024-09-28] MEDS: SODIUM CHLORIDE 0.9% 1,000 ML in EMPTY BAG 1 BAG IV SCH (00:34)
--- NOTE | 2024-09-28 06:56 | CA ---
Transthoracic Echo Report Name: Sonu Garcia Age: 64 Gender: M : 1960 Exam Date: 09/27/2024 11:44 Exam Location: [facility] Ht (in): 66 Wt (lb): 165 Ordering Physician: Lissy Perry Attending/Referring Phys: [id number], Vicky Director Of [employer] Operations Agnes Campbell RDCS Procedure CPT: Indications: LV function, chest pain Cardiac Hx: Technical Quality: Good Contrast 1: Total Dose (mL): Contrast 2: Total Dose (mL): MEASUREMENTS (Male / Female) Normal Values 2D ECHO LV Diastolic Diameter PLAX 4.5 cm 4.2 - 5.9 / 3.9 - 5.3 cm LV Systolic Diameter PLAX 3.0 cm IVS Diastolic Thickness 0.8 cm 0.6 - 1.0 / 0.6 - 0.9 cm LVPW Diastolic Thickness 0.9 cm 0.6 - 1.0 / 0.6 - 0.9 cm LV Relative Wall Thickness 0.4 LVOT Diameter 1.9 cm LV Diastolic Volume MOD BP 86.0 cm??? 67 - 155 / 56 - 104 cm??? LV Systolic Volume MOD BP 35.4 cm??? 22 - 58 / 19 - 49 cm??? LV Ejection Fraction MOD BP 58.9 % >= 55 % LV Cardiac Index MOD BP 1855.9 cm???/min???m??? LV Diastolic Volume MOD 4C 88.0 cm??? LV Systolic Volume MOD 4C 37.4 cm??? LV Ejection Fraction MOD 4C 57.5 % LV Cardiac Index MOD 4C 1853.7 cm???/min???m??? LV Diastolic Length 4C 7.2 cm LV Systolic Length 4C 6.4 cm LV Diastolic Volume MOD 2C 82.6 cm??? LV Systolic Volume MOD 2C 32.1 cm??? LV Ejection Fraction MOD 2C 61.1 % LV Cardiac Index MOD 2C 1850.4 cm???/min???m??? LV Diastolic Length 2C 7.4 cm LV Systolic Length 2C 6.2 cm LA Volume 41.7 cm??? 18 - 58 / 22 - 52 cm??? LA Volume Index 22.1 cm???/m??? 16 - 28 cm???/m??? DOPPLER AV Peak Velocity 172.5 cm/s AV Peak Gradient 11.9 mmHg AV Mean Velocity 115.8 cm/s AV Mean Gradient 6.0 mmHg AV Velocity Time Integral 33.5 cm LVOT Peak Velocity 103.6 cm/s LVOT Peak Gradient 4.3 mmHg LVOT Velocity Time Integral 21.4 cm LVOT Stroke Volume 60.4 cm??? LVOT Stroke Volume Index 32.7 ml/m??? LVOT Cardiac Index 2212.7 cm???/min???m??? AV Area Cont Eq vti 1.8 cm??? AV Area Cont Eq pk 1.7 cm??? MV Area PHT 3.0 cm??? Mitral E Point Velocity 54.7 cm/s Mitral A Point Velocity 66.0 cm/s Mitral E to A Ratio 0.8 MV Deceleration Time 249.5 ms TR Peak Velocity 223.8 cm/s TR Peak Gradient 20.0 mmHg Right Atrial Pressure 5.0 mmHg Pulmonary Artery Systolic Pressu 25.0 mmHg Right Ventricular Systolic Press 25.0 mmHg PV Peak Velocity 99.0 cm/s PV Peak Gradient 3.9 mmHg FINDINGS Left Ventricle Left ventricular ejection fraction is estimated at 55-60 %. Left ventricular cavity size normal. Left ventricular wall thickness normal. No obvious regional wall motion abnormalities. Right Ventricle Normal right ventricular size and function. Right ventricular systolic pressure within normal limits. Right Atrium Normal right atrial size. Left Atrium Normal left atrial size. Mitral Valve Structurally normal mitral valve. No mitral stenosis, regurgitation or prolapse. Aortic Valve Trileaflet aortic valve. No aortic valve stenosis or regurgitation. Tricuspid Valve Structurally normal tricuspid valve. No tricuspid stenosis. Trace to mild tricuspid regurgitation. Pulmonic Valve Structurally normal pulmonic valve. No pulmonic stenosis. No pulmonic regurgitation. Pericardium No pericardial effusion. Echo free space anterior to the right ventricle likely represents a fat pad. Aorta Normal size aortic root and proximal ascending aorta. CONCLUSIONS Normal biventricular systolic function No significant valvular abnormalities noted No pericardial effusion Previewed by: Dr. Sebastian Mendoza MD (Electronically Signed) Final Date: 28 September 2024 06:56
[2024-09-28] MEDS ORDERED: HEPARIN SODIUM,PORCINE 10,000 UNIT in SODIUM CHLORIDE 0.9% 1,000 ML IRRIGATION PRN (07:00)
[2024-09-28] MEDS ORDERED: HEPARIN SODIUM,PORCINE (1 ML) 2,500 UNIT in SODIUM CHLORIDE 0.9% 250 ML IRRIGATION PRN (07:00)
[2024-09-28 07:30] LABS: Basophils # (A) 0.02 10*3/uL (0.00-0.10); Basophils % (A) 0.3 %; Eosinophils # (A) 0.05 10*3/uL (0.04-0.35); Eosinophils % (A) 0.8 %; HCT 34.5 % (39.6-50.0); Lymphocytes # (A) 1.17 10*3/uL (0.90-5.00); MCH 31.8 pg (27.0-32.0); MCHC 34.8 g/dL (32.0-37.0); MCV 91.5 fL (80.0-97.0); Monocytes # (A) 0.58 10*3/uL (0.20-1.00); Monocytes % (A) 9.4 %; Neutrophils # (A) 4.33 10*3/uL (1.80-7.70); Neutrophils % (A) 70.3 %; Platelet Count 177 10*3/uL (140-440); RBC 3.77 10*6/uL (4.40-5.60); RDW 12.7 % (11.5-14.5); WBC 6.16 10*3/uL (4.50-10.00)
[2024-09-28 07:40] LABS: INR 1.1 (<1.2); Partial Thromboplastin Time 38.7 sec (22.0-30.0); Prothrombin Time 11.5 sec (10.0-12.5)
[2024-09-28 07:53] LABS: African American GFR (CKD) >90 (>60 ml/min/1.73 sqM); Anion Gap 5 mmol/L; Blood Urea Nitrogen 18 mg/dL (9-20); Calcium 8.2 mg/dL (8.4-10.2); Carbon Dioxide 25 mmol/L (22-30); Chloride 106 mmol/L (98-107); Glucose 105 mg/dL (74-99); Non-African American GFR(CKD) 82 (>60 ml/min/1.73 sqM); Potassium 3.9 mmol/L (3.5-5.1); Sodium 136 mmol/L (137-145)
[2024-09-28] MEDS: HEPARIN SODIUM 1,000 UN/ML (10ML VL) IV PRN (08:22)
[2024-09-28] MEDS: NITROGLYCERIN SL TABS 0.4 MG TAB SUBLINGUAL PRN (08:28)
[2024-09-28] MEDS: amLODIPine 2.5 MG TAB PO SCH (08:29)
[2024-09-28] MEDS: ISOSORBIDE MONONITRATE ER 30 MG TAB.ER.24H PO SCH (08:29)
[2024-09-28] MEDS: ATORVASTATIN 80 MG TAB PO ONE (09:12)
[2024-09-28] MEDS: CLOPIDOGREL 75 MG TAB PO STA (09:16)
--- NOTE | 2024-09-28 10:16 | P.PN ---
Subjective Progress Note Date: 09/28/24 HISTORY OF PRESENT ILLNESS: This is a 64-year-old male with a past medical history significant for coronary artery disease with previous stenting, COPD, hypertension, hyperlipidemia, and syncope. Patient follows in the office with Dr. Fonseca. We have been asked to see the patient in consultation for chest pain. Patient examined at the bedside. Patient presented to the hospital with chief complaint of chest discomfort. Patient states the pain is in the middle of his chest. The patient describes the pain as a sharp pain. The pain is worse with deep inspiration and also with chest wall palpation. He reports the pain is worse with changes in position and movement in the bed. DIAGNOSTICS: - EKG reveals sinus mechanism with no signs of acute ischemia. - Chest xray chronic changes without acute pulmonary process. - Laboratory data: WBC 5.2. Hemoglobin 14.7. Platelet count 241. Sodium 136. Potassium 4.1. BUN 16. Creatinine 0.96. Magnesium 1.9. Troponin negative x 3. - Current home cardiac medications include Ranexa 1000 mg twice a day, metoprolol titrate 50 mg twice a day, losartan 25 mg daily, Imdur 90 mg daily, Lasix 20 mg daily, Zetia 10 mg daily, atorvastatin 80 mg daily and aspirin 81 mg daily. - Most recent echocardiogram obtained in December 2023 revealed ejection fraction 55 to 60%, mild TR, mild pulmonary hypertension, trace MR - Cardiac catheterization history: June 2024 revealing 50% proximal circumflex, proximal LAD 20 to 30%, distal left main 20%, 20% small caliber nondominant RCA. Normal left-sided filling pressures. Normal IFR of LAD and circumflex. Medical management was recommended. Patient with an episode of chest pain after initial evaluation this morning. Patient did have ST elevation noted on telemetry in inferior leads. Per nursing, patient's chest pain had resolved by the time EKG was completed which did show resolution of ST elevation. Patient was reevaluated this afternoon. Patient's is at the bedside. Patient gives additional history this afternoon that he has been taking nitro at home for the past 1 to 2 weeks multiple times a day with relief of chest pain. Case discussed with patient's primary product tester fiberglass, Dr. Fonseca, patient will undergo cardiac catheterization tomorrow. If patient has further episodes of chest discomfort, patient will undergo cardiac catheterization this evening. 4/9 Patient seen and examined. Yesterday, he underwent cardiac cath with Dr. Fonseca which revealed nonobstructive coronary artery disease. Patient was still having chest pain following the procedure and was started on Norvasc, continued on heparin drip and also continued on his home dose of Imdur 30 mg and Ranexa 1000 mg twice daily. This morning, patient is complaining of chest pain and received 2 nitroglycerin sublingual with improvement of his pain. He denies shortness of breath. Echocardiogram reveals normal biventricular systolic function. No significant valvular abnormalities. No pericardial effusion. Yesterday, D-dimer came back normal at 0.59. PHYSICAL EXAM: VITAL SIGNS: Reviewed. GENERAL: Well-developed in no acute distress. HEENT: Head is normocephalic. Pupils are equal, round. Sclerae anicteric. Mucous membranes of the mouth are moist. Neck supple. No JVD or thyromegaly LUNGS: Respirations even and unlabored. Lungs essentially clear to auscultation bilaterally. HEART: Regular rate and rhythm. S1 and S2 heard. ABDOMEN: Soft. Nondistended. Nontender. EXTREMITIES: Normal range of motion. No clubbing or cyanosis. Peripheral pulses intact. No lower extremity edema NEUROLOGIC: Awake and alert. Oriented x 3. ASSESSMENT: Chest pain, possible vasospasm Coronary artery disease has not progressed on cardiac catheterization COPD Hypertension Hyperlipidemia History of syncope PLAN: Continue patient's home cardiac medications Continue heparin drip Start Plavix 300 mg x 1 and 75 mg daily Further recommendations pending patient course Nurse practitioner note has been reviewed by physician. Signing provider agrees with the documented findings, assessment, and plan of care documented by DIRECTOR OF RESEARCH CENTER as a scribe. Objective - Vital Signs Vital signs: Vital Signs Temp 97.8 F 09/28/24 08:00 Pulse 80 09/28/24 08:41 Resp 16 09/28/24 08:00 BP 127/69 09/28/24 08:00 Pulse Ox 96 09/28/24 08:20 FiO2 Intake & Output 09/27/24 09/28/24 09/28/24 18:59 06:59 18:59 Intake Total 840 Output Total 0 700 Balance 840 0 -700 Weight 74.843 kg 77 kg Intake: IV 603 Oral 237 Output: Urine 0 700 Straight 700 Other: # Voids 1 - Labs CBC & Chem 7: 09/28/24 06:57 04/09/25 06:57 Labs: Abnormal Lab Results - Last 24 Hours (Table) 09/27/24 09/27/24 09/27/24 Range/Units 05:05 13:56 18:34 RBC 4.34 L 4.00 L (4.40-5.60) X 10*6/uL Hgb 12.8 L (13.0-17.0) g/dL Hct 36.3 L (39.6-50.0) % MPV 9.0 L (9.5-12.2) fL Lymphocytes # 0.65 L (0.90-5.00) 10*3/uL Eosinophils # 0.00 L (0.04-0.35) 10*3/uL APTT (22.0-30.0) sec Sodium (137-145) mmol/L BUN (9-20) mg/dL Glucose (74-99) mg/dL Calcium (8.4-10.2) mg/dL Troponin I 0.304 H* (0.000-0.034) ng/mL 09/27/24 09/27/24 09/27/24 Range/Units 18:34 21:09 21:09 RBC (4.40-5.60) X 10*6/uL Hgb (13.0-17.0) g/dL Hct (39.6-50.0) % MPV (9.5-12.2) fL Lymphocytes # (0.90-5.00) 10*3/uL Eosinophils # (0.04-0.35) 10*3/uL APTT 62.9 H (22.0-30.0) sec Sodium 133 L (137-145) mmol/L BUN 22 H (9-20) mg/dL Glucose 121 H (74-99) mg/dL Calcium (8.4-10.2) mg/dL Troponin I 0.298 H* (0.000-0.034) ng/mL 09/28/24 09/28/24 09/28/24 Range/Units 06:57 06:57 06:57 RBC 3.77 L (4.40-5.60) X 10*6/uL Hgb 12.0 L (13.0-17.0) g/dL Hct 34.5 L (39.6-50.0) % MPV 9.0 L (9.5-12.2) fL Lymphocytes # (0.90-5.00) 10*3/uL Eosinophils # (0.04-0.35) 10*3/uL APTT 38.7 H (22.0-30.0) sec Sodium 136 L (137-145) mmol/L BUN (9-20) mg/dL Glucose 105 H (74-99) mg/dL Calcium 8.2 L (8.4-10.2) mg/dL Troponin I (0.000-0.034) ng/mL
[2024-09-28] MEDS: ASPIRIN 325 MG TAB PO ONE (11:01)
--- NOTE | 2024-09-28 16:47 | CT ---
EXAMINATION TYPE: CT angio chest DATE OF EXAM: 09/28/2024 4:28 PM COMPARISON: 12/12/2023. CLINICAL INDICATION: Male, 64 years old with history of shortness of breath; SOB. TECHNIQUE/CONTRAST: CTA scan of the thorax is performed with IV Contrast, patient injected with 80 ml mL of Isovue 370, M IP images are created and reviewed these are created on a separate workstation.. CT DLP: 353.3 mGycm, Automated exposure control for dose reduction was used. FINDINGS: Lungs/Pleura: No evidence of focal consolidation, pleural effusion or pneumothorax. Moderate to sever e centrilobular and paraseptal emphysema changes of the lungs. Streaky atelectasis/scarring along the periphery of the lung bases most pronounced posteriorly. Airway: Large airways are patent. Heart: Size within normal limits. Moderate coronary artery calcifications present. Vasculature: There is no evidence for a filling defect within the pulmonary vasculature to suggest ac [place] pulmonary embolism. The pulmonary artery is of normal size. 4 vessel aortic arch. Mediastinum: No gross evidence of adenopathy. Musculoskeletal: Mild disc degeneration changes are present throughout the thoracolumbar spine second south to osteophyte formation and facet joint arthropathy. Soft Tissues/lymph nodes: Unremarkable. Lower neck: No significant findings. Upper Abdomen: Left hepatic lobe simple appearing cysts measuring 10 mm. IMPRESSION: 1. No evidence of pulmonary embolism. 2. Moderate to severe emphysema. Follow up recommendations for incidental pulmonary nodules, if there are any, are per [employer] or [employer]. https://radiopaedia.org/articles/ydminssdco-vgxjzni-[email or web address]-cppojg-[email or web address]?lang=us [facility], , 09/28/2024 4:44 PM
--- NOTE | 2024-09-29 03:33 | PN ---
PROGRESS NOTE DATE OF SERVICE: 09/28/2024 SUBJECTIVE: This is a 64-year-old gentleman, who was admitted with chest pain and elevated troponin, had cardiac catheterization. Cardiac cath showed CAD. IFR was negative. Vasospasm was considered. The patient is being closely monitored. No chest pain. No palpitation. OBJECTIVE: VITAL SIGNS: Pulse is 85, blood pressure 140/69, respirations 16. HEENT: Conjunctivae normal. CARDIOVASCULAR: S1, S2. RESPIRATIONS: Breath sounds diminished at the bases. ABDOMEN: Soft. NERVOUS SYSTEM: Nonfocal. LABORATORY DATA: Reviewed. ASSESSMENT: 1. Chest pain, possible acute dpl-DE-ksrovmm elevation myocardial infarction, status post cardiac catheterization, mild to moderate coronary artery disease with possible vasospasms. 2. Relative hypotension. 3. History of cardiac catheterization recently. 4. Chronic obstructive pulmonary disease. 5. Hypertension. 6. Hyperlipidemia. 7. Degenerative joint disease. 8. History of COVID. 9. Multiple complex medical issues. RECOMMENDATIONS: Recommend to continue current management and continue symptomatic treatment of the pain. I would also recommend CT angio of the chest to complete the workup. Closely follow with Cardiology. Repeat labs will be ordered. Prognosis extremely guarded because of multiple complex medical issues. Further recommendations to follow. MMODL / IJN: [id number] /
[2024-09-29 08:18] LABS: Basophils # (A) 0.01 10*3/uL (0.00-0.10); Basophils % (A) 0.2 %; Eosinophils # (A) 0.08 10*3/uL (0.04-0.35); Eosinophils % (A) 1.3 %; HCT 34.2 % (39.6-50.0); HGB 12.1 g/dL (13.0-17.0); Lymphocytes # (A) 1.39 10*3/uL (0.90-5.00); MCH 32.3 pg (27.0-32.0); MCHC 35.4 g/dL (32.0-37.0); MCV 91.2 fL (80.0-97.0); Mean Platelet Volume 9.4 fL (9.5-12.2); Monocytes % (A) 9.9 %; Neutrophils # (A) 3.93 10*3/uL (1.80-7.70); Neutrophils % (A) 65.1 %; Platelet Count 189 10*3/uL (140-440); RBC 3.75 10*6/uL (4.40-5.60); RDW 12.5 % (11.5-14.5); WBC 6.04 10*3/uL (4.50-10.00)
[2024-09-29] MEDS: CLOPIDOGREL 75 MG TAB PO SCH (08:28)
[2024-09-29 09:11] LABS: African American GFR (CKD) >90 (>60 ml/min/1.73 sqM); Anion Gap 5 mmol/L; Blood Urea Nitrogen 12 mg/dL (9-20); Calcium 8.6 mg/dL (8.4-10.2); Carbon Dioxide 25 mmol/L (22-30); Chloride 107 mmol/L (98-107); Glucose 132 mg/dL (74-99); Non-African American GFR(CKD) 81 (>60 ml/min/1.73 sqM); Potassium 3.8 mmol/L (3.5-5.1); Sodium 137 mmol/L (137-145)
[2024-09-29] MEDS ORDERED: IPRATROPIUM-ALBUTEROL 3 ML NEB INHALATION PRN (10:14)
[2024-09-29] MEDS: IPRATROPIUM-ALBUTEROL 3 ML NEB INHALATION STA (11:56)
[2024-09-29] MEDS ORDERED: ALBUTEROL NEBULIZED 2.5 MG/3 ML INHALATION PRN (11:58)
[2024-09-29] MEDS: methylPREDNISolone 4 MG TAB TAPER PO SCH (12:25)
[2024-09-29] MEDS: DOXYCYCLINE 100 MG TABLET PO SCH (12:26)
--- NOTE | 2024-09-29 13:06 | P.PN ---
Subjective Progress Note Date: 09/29/24 HISTORY OF PRESENT ILLNESS: This is a 64-year-old male with a past medical history significant for coronary artery disease with previous stenting, COPD, hypertension, hyperlipidemia, and syncope. Patient follows in the office with Dr. Fonseca. We have been asked to see the patient in consultation for chest pain. Patient examined at the bedside. Patient presented to the hospital with chief complaint of chest discomfort. Patient states the pain is in the middle of his chest. The patient describes the pain as a sharp pain. The pain is worse with deep inspiration and also with chest wall palpation. He reports the pain is worse with changes in position and movement in the bed. DIAGNOSTICS: - EKG reveals sinus mechanism with no signs of acute ischemia. - Chest xray chronic changes without acute pulmonary process. - Laboratory data: WBC 5.2. Hemoglobin 14.7. Platelet count 241. Sodium 136. Potassium 4.1. BUN 16. Creatinine 0.96. Magnesium 1.9. Troponin negative x 3. - Current home cardiac medications include Ranexa 1000 mg twice a day, metoprolol titrate 50 mg twice a day, losartan 25 mg daily, Imdur 90 mg daily, Lasix 20 mg daily, Zetia 10 mg daily, atorvastatin 80 mg daily and aspirin 81 mg daily. - Most recent echocardiogram obtained in December 2023 revealed ejection fraction 55 to 60%, mild TR, mild pulmonary hypertension, trace MR - Cardiac catheterization history: June 2024 revealing 50% proximal circumflex, proximal LAD 20 to 30%, distal left main 20%, 20% small caliber nondominant RCA. Normal left-sided filling pressures. Normal IFR of LAD and circumflex. Medical management was recommended. Patient with an episode of chest pain after initial evaluation this morning. Patient did have ST elevation noted on telemetry in inferior leads. Per nursing, patient's chest pain had resolved by the time EKG was completed which did show resolution of ST elevation. Patient was reevaluated this afternoon. Patient's is at the bedside. Patient gives additional history this afternoon that he has been taking nitro at home for the past 1 to 2 weeks multiple times a day with relief of chest pain. Case discussed with patient's primary radio television announcer, Dr. Fonseca, patient will undergo cardiac catheterization tomorrow. If patient has further episodes of chest discomfort, patient will undergo cardiac catheterization this evening. 4/9 Patient seen and examined. Yesterday, he underwent cardiac cath with Dr. Fonseca which revealed nonobstructive coronary artery disease. Patient was still having chest pain following the procedure and was started on Norvasc, continued on heparin drip and also continued on his home dose of Imdur 30 mg and Ranexa 1000 mg twice daily. This morning, patient is complaining of chest pain and received 2 nitroglycerin sublingual with improvement of his pain. He denies shortness of breath. Echocardiogram reveals normal biventricular systolic function. No significant valvular abnormalities. No pericardial effusion. Yesterday, D-dimer came back normal at 0.59. 09/29 Patient seen and examined. Yesterday, we started patient on Plavix 300 mg daily and continue on 75 mg daily. He states he is feeling better from yesterday. He is having brief episodes of chest pain that come and go on their own. He denies shortness of breath. Heparin drip discontinued this morning. PHYSICAL EXAM: VITAL SIGNS: Reviewed. GENERAL: Well-developed in no acute distress. HEENT: Head is normocephalic. Pupils are equal, round. Sclerae anicteric. Mucous membranes of the mouth are moist. Neck supple. No JVD or thyromegaly LUNGS: Respirations even and unlabored. Lungs essentially clear to auscultation bilaterally. HEART: Regular rate and rhythm. S1 and S2 heard. ABDOMEN: Soft. Nondistended. Nontender. EXTREMITIES: Normal range of motion. No clubbing or cyanosis. Peripheral pulses intact. No lower extremity edema NEUROLOGIC: Awake and alert. Oriented x 3. ASSESSMENT: Chest pain, possible vasospasm Coronary artery disease has not progressed on cardiac catheterization COPD Hypertension Hyperlipidemia History of syncope PLAN: Continue patient's home cardiac medications Discontinue heparin drip Continue Plavix 75 mg daily Plan to monitor patient overnight and discharge home tomorrow. At the time of discharge, patient will follow-up in the office with Dr. Fonseca in 1 week. Nurse practitioner note has been reviewed by physician. Signing provider agrees with the documented findings, assessment, and plan of care documented by CONGRESSIONAL ASSISTANT as a scribe. Objective - Vital Signs Vital signs: Vital Signs Temp 98.5 F 09/29/24 08:00 Pulse 85 09/29/24 08:34 Resp 16 09/29/24 08:00 BP 119/66 09/29/24 08:00 Pulse Ox 95 09/29/24 08:21 FiO2 21 09/29/24 08:21 Intake & Output 09/28/24 09/29/24 09/29/24 18:59 06:59 18:59 Intake Total 1254 165.895 180 Output Total 700 Balance 554 165.895 180 Weight 76.4 kg Intake: Intake, IV Titration 165.895 Amount Heparin Sod,Pork in 0.45% 165.895 NaCl 25,000 unit In 0.45 % NaCl 1 250ml.bag @ 12 UNITS/KG/HR 8.981 mls/hr IV .Q24H MAIKEL Rx#: [id number] Oral 1254 180 Output: Urine 700 Straight 700 Other: # Voids 2 1 - Labs CBC & Chem 7: 09/29/24 07:34 09/29/24 07:34 Labs: Abnormal Lab Results - Last 24 Hours (Table) 09/28/24 09/29/24 09/29/24 Range/Units 14:32 07:34 07:34 RBC 3.75 L (4.40-5.60) 10*6/uL Hgb 12.1 L (13.0-17.0) g/dL Hct 34.2 L (39.6-50.0) % MCH 32.3 H (27.0-32.0) pg MPV 9.4 L (9.5-12.2) fL APTT 51.1 H 36.5 H (22.0-30.0) sec Glucose (74-99) mg/dL 09/29/24 Range/Units 07:34 RBC (4.40-5.60) 10*6/uL Hgb (13.0-17.0) g/dL Hct (39.6-50.0) % MCH (27.0-32.0) pg MPV (9.5-12.2) fL APTT (22.0-30.0) sec Glucose 132 H (74-99) mg/dL
[2024-09-29 13:08] VITALS: BMI 27.1
--- NOTE | 2024-09-29 18:53 | P.PN ---
Subjective This is a pleasant 64 years old male who presents on 09/26 with chest pain nausea vomiting shortness of breath of 2 days duration Patient was evaluated by poly area supervisor for his troponin were elevated. Troponin was 0.29. Ejection fraction was 55 to 60% on echocardiogram. Patient had cardiac cath on 09/26 showing moderate coronary artery disease with no critical obstructive disease and various artery obstruction was 20 to 60%, there was concerns about left circumflex artery but cardiology decided to continue with medical management. He was treated with heparin drip which was discontinued today and continued with aspirin which is home medication and Plavix added during this admission. Patient informed about this plan and he is agreeable Currently patient complains from chest pain about 2/10. No endorsed shortness of breath. Have little dry cough. Yesterday had CTA of the chest which was negative for acute pulmonary process but showing moderate to severe emphysematous congestion Currently patient continue to be monitored He states that his director field services is Dr. Dobbs and patient was instructed to follow-up with his director field services in 1 week after discharge and he agrees Objective - Vital Signs Vital signs: Vital Signs Temp 97.7 F 09/29/24 15:00 Pulse 72 09/29/24 15:00 Resp 16 09/29/24 15:00 BP 123/64 09/29/24 15:00 Pulse Ox 97 09/29/24 15:00 FiO2 21 09/29/24 08:21 Intake & Output 09/28/24 09/29/24 09/29/24 18:59 06:59 18:59 Intake Total 1254 165.895 837 Output Total 700 Balance 554 165.895 837 Weight 76.4 kg 76.4 kg Intake: Intake, IV Titration 165.895 Amount Heparin Sod,Pork in 0.45% 165.895 NaCl 25,000 unit In 0.45 % NaCl 1 250ml.bag @ 12 UNITS/KG/HR 8.981 mls/hr IV .Q24H MAIKEL Rx#: [id number] Oral 1254 837 Output: Urine 700 Straight 700 Other: # Voids 2 1 2 - Exam GENERAL: The patient is alert and oriented x3, not in any acute distress. Well developed, well nourished. HEENT: Pupils are round and equally reacting to light. EOMI. No scleral icterus. No conjunctival pallor. Normocephalic, atraumatic. No pharyngeal erythema. No thyromegaly. CARDIOVASCULAR: S1 and S2 present. No murmurs, rubs, or gallops. PULMONARY: Chest is clear to auscultation, no wheezing , no crackles. ABDOMEN: Soft, nontender, nondistended, normoactive bowel sounds. No palpable organomegaly. MUSCULOSKELETAL: No joint swelling or deformity. EXTREMITIES: No cyanosis, clubbing, or pedal edema. NEUROLOGICAL: Gross neurological examination did not reveal any focal deficits. SKIN: No rashes. no petechiae. - Labs CBC & Chem 7: 09/29/24 07:34 09/29/24 07:34 Labs: Abnormal Lab Results - Last 24 Hours (Table) 09/29/24 09/29/24 09/29/24 Range/Units 07:34 07:34 07:34 RBC 3.75 L (4.40-5.60) 10*6/uL Hgb 12.1 L (13.0-17.0) g/dL Hct 34.2 L (39.6-50.0) % MCH 32.3 H (27.0-32.0) pg MPV 9.4 L (9.5-12.2) fL APTT 36.5 H (22.0-30.0) sec Glucose 132 H (74-99) mg/dL Assessment and Plan Assessment: Moderate coronary artery disease with elevated troponin suspicious to vasospasm of the coronary artery COPD with no acute exacerbation Hypertension Hyperlipidemia Mild anemia Plan: Heparin drip was discontinued Continue with aspirin and Plavix Continue with the rest of cardiac medication Cardiology planning to monitor for another 24 hours Echocardiogram reviewed showed preserved ejection fraction GI prophylaxis with Protonix DVT prophylax subcutaneous heparin Patient was instructed to follow-up with his director field services Dr. Dobbs in 1 week after discharge and his poly area supervisor Dr. Fonseca 1 week after discharge, they were placed in discharge instructions and he verbalized understanding acceptance Prognosis remains guarded
[2024-09-30 11:34] VITALS: BP 126/64; PULSE 76; RESP 16; TEMP 97.8
--- NOTE | 2024-09-30 14:17 | P.PN ---
Subjective Progress Note Date: 09/30/24 HISTORY OF PRESENT ILLNESS: This is a 64-year-old male with a past medical history significant for coronary artery disease with previous stenting, COPD, hypertension, hyperlipidemia, and syncope. Patient follows in the office with Dr. Fonseca. We have been asked to see the patient in consultation for chest pain. Patient examined at the bedside. Patient presented to the hospital with chief complaint of chest discomfort. Patient states the pain is in the middle of his chest. The patient describes the pain as a sharp pain. The pain is worse with deep inspiration and also with chest wall palpation. He reports the pain is worse with changes in position and movement in the bed. DIAGNOSTICS: - EKG reveals sinus mechanism with no signs of acute ischemia. - Chest xray chronic changes without acute pulmonary process. - Laboratory data: WBC 5.2. Hemoglobin 14.7. Platelet count 241. Sodium 136. Potassium 4.1. BUN 16. Creatinine 0.96. Magnesium 1.9. Troponin negative x 3. - Current home cardiac medications include Ranexa 1000 mg twice a day, metoprolol titrate 50 mg twice a day, losartan 25 mg daily, Imdur 90 mg daily, Lasix 20 mg daily, Zetia 10 mg daily, atorvastatin 80 mg daily and aspirin 81 mg daily. - Most recent echocardiogram obtained in December 2023 revealed ejection fraction 55 to 60%, mild TR, mild pulmonary hypertension, trace MR - Cardiac catheterization history: June 2024 revealing 50% proximal circumflex, proximal LAD 20 to 30%, distal left main 20%, 20% small caliber nondominant RCA. Normal left-sided filling pressures. Normal IFR of LAD and circumflex. Medical management was recommended. Patient with an episode of chest pain after initial evaluation this morning. Patient did have ST elevation noted on telemetry in inferior leads. Per nursing, patient's chest pain had resolved by the time EKG was completed which did show resolution of ST elevation. Patient was reevaluated this afternoon. Patient's is at the bedside. Patient gives additional history this afternoon that he has been taking nitro at home for the past 1 to 2 weeks multiple times a day with relief of chest pain. Case discussed with patient's primary retail loan officer, Dr. Fonseca, patient will undergo cardiac catheterization tomorrow. If patient has further episodes of chest discomfort, patient will undergo cardiac catheterization this evening. 09/28 Patient seen and examined. Yesterday, he underwent cardiac cath with Dr. Fonseca which revealed nonobstructive coronary artery disease. Patient was still having chest pain following the procedure and was started on Norvasc, continued on heparin drip and also continued on his home dose of Imdur 30 mg and Ranexa 1000 mg twice daily. This morning, patient is complaining of chest pain and received 2 nitroglycerin sublingual with improvement of his pain. He denies shortness of breath. Echocardiogram reveals normal biventricular systolic function. No significant valvular abnormalities. No pericardial effusion. Yesterday, D-dimer came back normal at 0.59. 09/29 Patient seen and examined. Yesterday, we started patient on Plavix 300 mg daily and continue on 75 mg daily. He states he is feeling better from yesterday. He is having brief episodes of chest pain that come and go on their own. He denies shortness of breath. Heparin drip discontinued this morning. 09/30 Patient seen and examined. Patient has been started on Plavix 75 mg daily and was off heparin starting yesterday. Patient states he did have a little bit of chest pain this morning after he ate his breakfast. He states he did not have c hest pain when he was walking in his room. Blood pressure 126/64, heart rate 76, pulse ox 96% on 2 L nasal cannula. PHYSICAL EXAM: VITAL SIGNS: Reviewed. GENERAL: Well-developed in no acute distress. HEENT: Head is normocephalic. Pupils are equal, round. Sclerae anicteric. Mucous membranes of the mouth are moist. Neck supple. No JVD or thyromegaly LUNGS: Respirations even and unlabored. Lungs essentially clear to auscultation bilaterally. HEART: Regular rate and rhythm. S1 and S2 heard. ABDOMEN: Soft. Nondistended. Nontender. EXTREMITIES: Normal range of motion. No clubbing or cyanosis. Peripheral pulses intact. No lower extremity edema NEUROLOGIC: Awake and alert. Oriented x 3. ASSESSMENT: Chest pain, possible NSTEMI secondary to vasospasm with component of GI etiology Coronary artery disease has not progressed on cardiac catheterization COPD Hypertension Hyperlipidemia History of syncope PLAN: Continue patient's home cardiac medications Continue Plavix 75 mg daily Patient is cleared for discharge from cardiology and will follow-up in the office with Dr. Fonseca in 1 week. Nurse practitioner note has been reviewed by physician. Signing provider agrees with the documented findings, assessment, and plan of care documented by TELETYPE TECHNICIAN as a scribe. Objective - Vital Signs Vital signs: Vital Signs Temp 97.4 F L 09/30/24 07:43 Pulse 70 09/30/24 09:40 Resp 20 09/30/24 07:43 BP 152/83 09/30/24 07:43 Pulse Ox 99 09/30/24 07:43 FiO2 21 09/29/24 08:21 Intake & Output 09/29/24 09/30/24 09/30/24 18:59 06:59 18:59 Intake Total 837 240 Balance 837 240 Weight 76.4 kg 76 kg Intake: Oral 837 240 Other: Voiding Method Toilet # Voids 2 2 - Labs CBC & Chem 7: 09/29/24 07:34 09/29/24 07:34
--- NOTE | 2024-10-03 22:32 | P.DS ---
Providers Date of admission: 09/26/24 17:28 Attending physician: Jamin Burgos Consults: 09/26/24 17:26 Consult Physician Urgent Consulting Provider: Sebastian Mendoza Consult Reason/Comments: cp Do you want consulting provider notified?: Yes Primary care physician: Yara Duran [place] [facility] Course: Final Diagnosis Moderate coronary artery disease with elevated troponin suspicious to vasospasm of the coronary artery COPD with no acute exacerbation Hypertension Hyperlipidemia Mild anemia Discharge Disposition Patient is stable for discharge home. He will continue course of oral doxycycline. Patient completed prednisone burst while in the hospital discharged on prednisone 10 mg daily as prior. He will continue same home inhalers. Patient will also discharge on amlodipine 2.5 mg daily and metoprolol 12.5 mg twice daily. He has follow-up with his PCP Dr. Yara duran, Dr Dobbs and Dr Fonseca Hospital Course This is a pleasant 64 years old male who presents on 09/26 with chest pain nausea vomiting shortness of breath of 2 days duration. Patient had troponin elevation. He was started on heparin drip. Echocardiogram reveals an ejection fraction of 55 to 60% with no significant valvular abnormalities noted with no pericardial effusion. Patient had cardiac catheterization September 26 showing moderate coronary artery disease with no critical obstructive disease in various artery obstruction was 22 of 60%. There was concern about left circumflex artery but cardiology has recommended medical management. Plavix was added during this admission. Patient chest pain has been effectively improved. He did have a chest CT angiography completed which was negative for pulmonary embolism but did show moderate to severe emphysematous congestion. Patient has some scattered wheezing and was started on Medrol Dosepak, doxycycline. Patient does follow with Dr. Gillis in the office and was instructed to follow-up on discharge. Additional cardiac medications were changed. His lipids count is normal at 6.04, sodium level of 137 BUN of 12 creatinine of 0.98. He has been afebrile and saturating 96% on room air. He will be discharged home Please see medication reconciliation for a list of current medications. Thank you for allowing us to participate in the care of this patient. The impression and plan of care has been dictated by Camilla Fallon, Nurse Practitioner as directed. Dr. Isaura MD I have performed a history and physical examination and medical decision making of this patient, discussed the same with the dictator, and agree with the dictators assessment and plan as written, documented as a scribe. Based on total visit time, I have performed more than 50% of this visit. Patient Condition at Discharge: Stable Plan - Discharge Summary Discharge Rx Participant: No New Discharge Prescriptions: New amLODIPine [Norvasc] 2.5 mg PO DAILY #30 tab Clopidogrel [Plavix] 75 mg PO DAILY #30 tab Doxycycline 100 mg PO BID 4 Days #8 tab Metoprolol Tartrate [Lopressor] 12.5 mg PO BID-W/MEALS #60 tab Continue Isosorbide Mononitrate ER [Imdur] 90 mg PO DAILY FLUoxetine HCL [PROzac] 40 mg PO DAILY Nitroglycerin Sl Tabs [Nitrostat] 0.4 mg SL Q5M PRN PRN Reason: Chest Pain rOPINIRole HCL [Requip] 0.5 mg PO HS Tiotropium Br/Olodaterol HCl [Stiolto Respimat Inhal Ferguson] 2 puff INHALATION RT-DAILY Famotidine [Pepcid] 20 mg PO HS PRN PRN Reason: Gi Upset Ranolazine [Ranexa] 1,000 mg PO BID Albuterol Sulfate [Albuterol Sulfate Hfa] 2 puff INHALATION RT-Q4H PRN PRN Reason: Shortness Of Breath Ezetimibe [Zetia] 10 mg PO DAILY Atorvastatin [Lipitor] 80 mg PO DAILY Furosemide [Lasix] 20 mg PO DAILY Tamsulosin HCl [Flomax] 0.4 mg PO BID Meclizine [Antivert] 12.5 mg PO QID PRN PRN Reason: Vertigo Pantoprazole [Protonix] 40 mg PO BID Aspirin 81 mg PO DAILY predniSONE 10 mg PO DAILY Discontinued Losartan [Cozaar] 25 mg PO DAILY #30 tab Metoprolol Tartrate [Lopressor] 50 mg PO BID-W/MEALS Discharge Medication List FLUoxetine HCL [PROzac] 40 mg PO DAILY 04/26/22 [History] Isosorbide Mononitrate ER [Imdur] 90 mg PO DAILY 04/26/22 [History] Nitroglycerin Sl Tabs [Nitrostat] 0.4 mg SL Q5M PRN 04/26/22 [History] rOPINIRole HCL [Requip] 0.5 mg PO HS 04/26/22 [History] Ezetimibe [Zetia] 10 mg PO DAILY 04/16/23 [History] Tiotropium Br/Olodaterol HCl [Stiolto Respimat Inhal Ferguson] 2 puff INHALATION RT-DAILY 11/10/23 [History] Atorvastatin [Lipitor] 80 mg PO DAILY 12/12/23 [History] Furosemide [Lasix] 20 mg PO DAILY 12/12/23 [History] Famotidine [Pepcid] 20 mg PO HS PRN 03/18/24 [History] Meclizine [Antivert] 12.5 mg PO QID PRN 03/18/24 [History] Ranolazine [Ranexa] 1,000 mg PO BID 03/18/24 [History] Tamsulosin HCl [Flomax] 0.4 mg PO BID 03/18/24 [History] Pantoprazole [Protonix] 40 mg PO BID 03/23/24 [History] Aspirin 81 mg PO DAILY 04/29/24 [History] Albuterol Sulfate [Albuterol Sulfate Hfa] 2 puff INHALATION RT-Q4H PRN 07/06/24 [History] predniSONE 10 mg PO DAILY 07/06/24 [History] Clopidogrel [Plavix] 75 mg PO DAILY #30 tab 09/30/24 [Rx] Doxycycline 100 mg PO BID 4 Days #8 tab 09/30/24 [Rx] Metoprolol Tartrate [Lopressor] 12.5 mg PO BID-W/MEALS #60 tab 09/30/24 [Rx] amLODIPine [Norvasc] 2.5 mg PO DAILY #30 tab 09/30/24 [Rx] Follow up Appointment(s)/Referral(s): Te Fonseca DO [STAFF PHYSICIAN] - 10/07/24 10:45 am Reece Dobbs DO [Doctor of Osteopathic Medicine] - 10/13/24 9:00 am Yara Duran MD [Primary Care Provider] - 10/11/24 3:00 pm Ambulatory/Diagnostic Orders: Basic Metabolic Panel [LAB.AMB] Location: None Selected Complete Blood Count w/diff [LAB.AMB] Time Frame: 3 Days, Location: None Selected Patient Instructions/Handouts: Acute Coronary Syndrome (DC) Activity/Diet/Wound Care/Special Instructions: CARDIAC CATH Support your puncture site by applying firm, steady pressure whenever you cough, laugh, sneeze or bear down to have a bowel movement (2-day restriction). Watch for any excessive bruising, active bleeding, a firm knot forming under your skin, extreme tenderness and signs of infection (redness, swelling, fever). Shower daily, do not soak puncture in a tub bath, jacuzzi, pool, escobedo etc. for 1 week. This is to prevent risk of infection. Drink plenty of fluids the day of and day after your procedure to flush contrast dye out of your kidneys. Take all medications as directed. Never stop any new medication without your physicians OK. No driving for 2 days after procedure. 5- pound weight lifting restriction for 1 week. Low sodium/low fat diet. Activity limited until follow up appointment with your veneer stapler. In case of any problems, please call [facility] [place] @ [phone]. Just some important facts for you to know after your stent placement Discharge Disposition: HOME SELF-CARE
== END 2024-09-30 13:53 | disposition home or self-care (01) | DRG 287 ==
LOC: EC 14:38 → 6NMEDSUR 17:27 → OBSVTOIN 17:28 → 6NMEDSUR 18:21 → 3SCARD 09-27 17:21
PROVIDERS: ADMIT Hospitalist; ATTEND Hospitalist
PROC: B240ZZ3 Ultrasonography of Single Coronary Artery, Intravascular (ICD-10-PCS; 2024-09-27)
PROC: 4A033BC Measurement of Arterial Pressure, Coronary, Percutaneous Approach (ICD-10-PCS; 2024-09-27)
PROC: 4A023N7 Measurement of Cardiac Sampling and Pressure, Left Heart, Percutaneous Approach (ICD-10-PCS; principal; 2024-09-27 15:25)
PROC: B2111ZZ Fluoroscopy of Multiple Coronary Arteries using Low Osmolar Contrast (ICD-10-PCS; 2024-09-27 15:25)
PROC: B2151ZZ Fluoroscopy of Left Heart using Low Osmolar Contrast (ICD-10-PCS; 2024-09-27 15:25)
DX: I25.111 Atherosclerotic heart disease of native coronary artery with angina pectoris with documented spasm (principal); J44.1 Chronic obstructive pulmonary disease with (acute) exacerbation; Z99.81 Dependence on supplemental oxygen; I10 Essential (primary) hypertension; D64.9 Anemia, unspecified; R07.89 Other chest pain; E78.5 Hyperlipidemia, unspecified; K21.9 Gastro-esophageal reflux disease without esophagitis; I25.2 Old myocardial infarction; M19.90 Unspecified osteoarthritis, unspecified site; E78.00 Pure hypercholesterolemia, unspecified; H54.62 Unqualified visual loss, left eye, normal vision right eye; Z79.82 Long term (current) use of aspirin; Z79.899 Other long term (current) drug therapy; Z87.891 Personal history of nicotine dependence; Z86.73 Personal history of transient ischemic attack (TIA), and cerebral infarction without residual deficits; Z95.5 Presence of coronary angioplasty implant and graft; Z82.49 Family history of ischemic heart disease and other diseases of the circulatory system
CPT/HCPCS: 36415; 71046; 71275; 80048; 80053; 80061; 83605; 83735; 84484; 85025; 85379; 85610; 85730; 92978; 93005; 93306; 93458; 93799; 94640; 94760; 96372; 96374; 96375; 99285